=== PATIENT | female | born 1955 | race Caucasian/White ===

== ENCOUNTER → 2017-01-09 | Outpatient (CLI) | payer OTHER ==
[~2017-01-09] MED LIST: CPR500 PO; GLIM2TAB2 PO
--- NOTE | 2017-01-09 16:02 | MAMMOGRAPHY REPORT ---
BILATERAL DIGITAL SCREENING MAMMOGRAM TOMOSYNTHESIS WITH CAD: 01/09/2017 CLINICAL HISTORY: Routine screening. Patient has no complaints. TECHNIQUE: Breast tomosynthesis in addition to standard 2D mammography was performed. Current study was also evaluated with a Computer Aided Detection (CAD) system. COMPARISON: Comparison is made to exams dated: 12/13/2013 ultrasound, 12/09/2013 mammogram, 12/08/2012 m ammogram, 11/26/2011 mammogram - [facility], 02/05/2007, and 11/25/2010 mammogram - [facility]. BREAST COMPOSITION: The tissue of both breasts is heterogeneously dense, which may obscure small ma sses. FINDINGS: No suspicious masses, calcifications, or areas of architectural distortion are noted in e ither breast. There has been no significant interval change compared to prior exams. Scattered bilat eral benign-appearing calcifications are not significantly changed. IMPRESSION: ACR BI-RADS CATEGORY 2: BENIGN There is no mammographic evidence of malignancy. A 1 year screening mammogram is recommended. The p atient will receive written notification of the results. Approximately 10% of breast cancers are not detected with mammography. A negative mammographic repor t should not delay biopsy if a clinically suggestive mass is present. Karla Anne M.D. /:01/09/2017 14:30:03 Electromechanical Inspector: Martha Tenorio [facility] letter sent: Normal 1/2 BI-RADS Code: ACR BI-RADS Category 2: Benign
== END | disposition home or self-care (01) ==
LOC: C.MAMM 10:25
PROVIDERS: ATTEND Internal Medicine
DX: Z12.31 Encounter for screening mammogram for malignant neoplasm of breast (principal)

== ENCOUNTER → 2017-03-26 | Outpatient (CLI) | payer OTHER ==
[2017-03-26 12:40] LABS: CALCIUM 9.7 mg/dl (8.5-10.1)
[2017-03-26 12:42] LABS: ALT/SGPT 20 U/L (12-78); BLOOD UREA NITROGEN 14 mg/dl (7-18); BUN/CREATININE RATIO 14.9 (10-20); CARBON DIOXIDE 28 mmol/L (21-32); CHLORIDE 106 mmol/L (98-107); CHOLESTEROL 193 mg/dl (0-200); CREATININE 0.91 mg/dl (0.60-1.20); GLUCOSE 187 mg/dl (70-99); POTASSIUM 4.6 mmol/L (3.5-5.1); SODIUM 142 mmol/L (136-145); TRIGLYCERIDES 211 mg/dl (0-150); VERY LOW DENSITY LIPOPROT CALC 42 mg/dl
[2017-03-26 12:45] LABS: ALB/GLOB RATIO 1.2 (0.9-2); ALKALINE PHOSPHATASE 73 U/L (45-117); AST/SGOT 13 U/L (15-37); CHOLESTEROL/HDL RATIO 3.9; HDL CHOLESTEROL 50 mg/dl; LDL CHOLESTEROL CALCULATED 101 mg/dl
[2017-03-26 12:54] LABS: ESTIMATED AVERAGE GLUCOSE 192 mg/dl; HA1C FLAG Normal (Normal)
== END | disposition home or self-care (01) ==
LOC: C.LABBFT 08:55
PROVIDERS: ATTEND Nurse Practitioner
DX: E11.49 Type 2 diabetes mellitus with other diabetic neurological complication (principal)

== ENCOUNTER → 2017-04-01 | Outpatient (CLI) | payer OTHER | END | disposition home or self-care (01) | LOC: C.LABSPEC 12:38 | PROVIDERS: ATTEND Nurse Practitioner | DX: R39.9 Unspecified symptoms and signs involving the genitourinary system (principal) ==

== ENCOUNTER → 2017-07-30 | Outpatient (CLI) | payer OTHER ==
[2017-07-30 12:26] LABS: ALT/SGPT 15 U/L (12-78); BLOOD UREA NITROGEN 13 mg/dl (7-18); BUN/CREATININE RATIO 18.4 (10-20); CARBON DIOXIDE 26 mmol/L (21-32); CHLORIDE 101 mmol/L (98-107); CHOLESTEROL 210 mg/dl (0-200); CREATININE 0.72 mg/dl (0.60-1.20); GLUCOSE 293 mg/dl (70-99); POTASSIUM 4.2 mmol/L (3.5-5.1); SODIUM 136 mmol/L (136-145); TRIGLYCERIDES 237 mg/dl (0-150); VERY LOW DENSITY LIPOPROT CALC 47 mg/dl
[2017-07-30 12:29] LABS: ALB/GLOB RATIO 1.2 (0.9-2); ALKALINE PHOSPHATASE 94 U/L (45-117); AST/SGOT 7 U/L (15-37); CHOLESTEROL/HDL RATIO 3.9; HDL CHOLESTEROL 54 mg/dl; LDL CHOLESTEROL CALCULATED 109 mg/dl
[2017-07-30 12:29] LABS: URINE APPEARANCE CLEAR (CLEAR); URINE BILIRUBIN NEG (NEG); URINE COLOR YELLOW; URINE NITRITE NEG (NEG); URINE SPECIFIC GRAVITY 1.029 (1.000-1.030); UROBILINOGEN NEG (NEG)
[2017-07-30 12:30] LABS: ESTIMATED AVERAGE GLUCOSE 249 mg/dl; HA1C FLAG Normal (Normal)
[2017-07-30 12:40] LABS: MANUAL MICROSCOPIC REQUIRED? NO; REVIEW REQ? NO
[2017-07-30 12:51] LABS: RATIO 6.9 mcg/mg (0-30.0)
== END | disposition home or self-care (01) ==
LOC: C.LABBFT 09:05
PROVIDERS: ATTEND Nurse Practitioner
DX: R39.9 Unspecified symptoms and signs involving the genitourinary system (principal); E11.49 Type 2 diabetes mellitus with other diabetic neurological complication

== ENCOUNTER → 2017-12-03 | Outpatient (CLI) | payer OTHER ==
[2017-12-03 12:52] LABS: ALBUMIN 3.9 gm/dl (3.4-5.0); ALT/SGPT 21 U/L (12-78); AST/SGOT 11 U/L (15-37); BLOOD UREA NITROGEN 17 mg/dl (7-18); CALCIUM 9.1 mg/dl (8.5-10.1); CARBON DIOXIDE 28 mmol/L (21-32); CREATININE 0.78 mg/dl (0.60-1.20); GLUCOSE 252 mg/dl (70-99); POTASSIUM 4.5 mmol/L (3.5-5.1); SODIUM 135 mmol/L (136-145)
[2017-12-03 12:54] LABS: ALKALINE PHOSPHATASE 93 U/L (45-117); TOTAL PROTEIN 7.3 gm/dl (6.4-8.2)
== END | disposition home or self-care (01) ==
LOC: C.LABBFT 09:18
PROVIDERS: ATTEND Nurse Practitioner
DX: R39.9 Unspecified symptoms and signs involving the genitourinary system (principal); E11.49 Type 2 diabetes mellitus with other diabetic neurological complication

== ENCOUNTER 2023-05-28 15:16 | Inpatient (IN) ==
--- NOTE | 2023-05-28 15:19 | ED Triage Note ---
Date of Service May 28, 2023 History of Present Illness This patient was briefly evaluated while in triage. An abbreviated physical exam was performed. This patient is a 68-year-old Female who presents to the ED for evaluation of abnormal blood sugars. Her glucose at her PCP today was 422. Hgb A1C was 16.6. BUN/Cr ratio was 28.9. PCP was worried about DKA. She has not been taking her medications for her diabetes. Was recently prescribed insulin, but she still hasn't picked it up yet. Having chest discomfort as well. No nausea or vomiting. Blood sugar was 545 at 1520 in triage. Physical Exam GENERAL: Non-toxic and in no acute distress. HEENT: Pupils equal. No obvious scleral icterus. HEART: Regular rate and rhythm. LUNGS: Clear to auscultation. No accessory muscle use. ABDOMEN: Soft, nontender to palpation. NEURO: Alert and oriented. No obvious neurological deficits on quick neuro exam. The patient was taken directly back to a room due to her elevated BSG. Please see further documentation for additional details. MDM / Impression Impression Impression: DKA (diabetic ketoacidosis)
[2023-05-28] MEDS ORDERED: SODIUM CHLORIDE 0.9% 1000ML 1,000 ML IV ONE (15:31)
[2023-05-28 16:00] LABS: Base Excess VBG -7.9 mEq/L; HCO3 VBG 17 mmol/L; Oxygen Saturation VBG 80.3 %; PCO2 VBG 32 mmHg (38-50); PO2 VBG 48 mmHg; pH VBG 7.33 (7.36-7.41)
[2023-05-28 16:14] LABS: Basophils # (auto) 0.03 K/uL (0-0.2); Basophils % (auto) 0.3 %; Eosinophils # (auto) 0.01 K/uL (0-0.50); Eosinophils % (auto) 0.1 %; Hematocrit (blood only) 36.2 % (37.0-47.0); Hemoglobin 13.2 g/dl (12.0-16.0); Immature Granulocytes # (auto) 0.07 K/uL (0.01-0.20); Immature Granulocytes % (auto) 0.8 %; Lymphocytes # (auto) 2.26 K/uL (1.2-3.4); Lymphocytes % (auto) 24.4 %; Mean Corpuscular Hemoglobin 30.5 pg (25.0-34.0); Mean Corpuscular Hgb Conc 36.5 g/dL (32.0-36.0); Mean Corpuscular Volume 83.6 fL (80.0-100.0); Monocytes # (auto) 0.64 K/uL (0.11-0.59); Monocytes % (auto) 6.9 %; Neutrophils # (auto) 6.24 K/uL (1.40-6.50); Neutrophils % (auto) 67.5 %; Platelet Count 215 K/uL (130-400); RDW Standard Deviation 36.5 fL (36.4-46.3); Red Blood Count 4.33 M/uL (4.20-5.40); White Blood Count 9.25 K/ul (4.8-10.8)
[2023-05-28 16:45] LABS: BUN Creatinine Ratio 34.2 (10-20); Bilirubin Direct 0.3 mg/dl (0-0.2); Bilirubin,Total 1.9 mg/dl (0.2-1.0); Calcium 9.5 mg/dl (8.6-10.3); Creatinine Clr Calc Pharmacy 44.5 ml/min; Est GFR (African American) 54.5 ml/min; Est GFR (Non-African American) 47.1 ml/min; Potassium 4.1 mmol/L (3.5-5.1); Total Protein 6.7 gm/dl (6.0-8.3)
[2023-05-28] MEDS ORDERED: STAT INSULIN DRIP STA (17:32)
[2023-05-28] MEDS ORDERED: GLUCOSE 10 TAB/TUBE PO PRN (17:32)
[2023-05-28] MEDS ORDERED: DEXTROSE 50% 50 ML SYRINGE IV PRN (17:32)
[2023-05-28] MEDS ORDERED: GLUCAGON FOR INJ 1 MG VIAL SQ PRN (17:32)
[2023-05-28] MEDS ORDERED: GLUCOSE 40% GEL 15 GM TUBE PO PRN (17:32)
[2023-05-28] MEDS ORDERED: CARBOHYDRATES FOR HYPOGLYCEMIA PO PRN (17:32)
[2023-05-28] MEDS ORDERED: INSULIN REGULAR 250 UNITS in SODIUM CHLORIDE 0.9% 247.5 ML IV SCH ×2 (17:45→19:15)
--- NOTE | 2023-05-28 18:41 | History & Physical Report ---
Date of Service May 28, 2023 Assessment & Plan (1) Type 2 diabetes mellitus with hyperosmolar hyperglycemic state (HHS): Plan: Patient is a 68-year-old female with past medical history of uncontrolled type 2 diabetes, hyperlipidemia (not on any medication), and anxiety/depression who presented to the hospital with elevated glucose. Patient has not been taking insulin or checking blood glucose levels at home for at least 6 months. HHS vs. DKA Patient initially saw PCP this morning and ordered labs which showed a hemoglobin A1c of 16.6 and a glucose level of 422. When patient was admitted to the hospital glucose levels of 545. Patient has high anion gap of 16 at time of admission. Magnesium, phosphorus, and potassium all within normal limits. VBG showed a pH of 7.33 with a low CO2 of 32. We will continue to monitor magnesium, phosphate, potassium, and VBG in a.m. labs. Patient most likely has HHS rather than DKA though ketones levels were not collected in the ED. Patient did have a high osmolality of 310. We will start on DKA goal range of [id number]. UA ordered the has not been collected at this time. Insulin drip started in the ED which will be continued at time of admission until goal is met. We will change IV fluids to incorporate dextrose once glucose goal is reached. We will start on glucose checks every 1 hour and BMP every 4 hours until at goal. May space out once at goal. (2) Type 2 diabetes mellitus, uncontrolled: Plan: Hemoglobin A1c of 16.6. As above, patient will need close outpatient follow-up at time of discharge given uncontrolled nature of type 2 diabetes. (3) Anxiety and depression: Plan: Patient with increased anxiety and depression over the past couple months. Patient was started on sertraline 50 mg daily and buspirone 5 mg 3 times daily by her PCP today. She has not taken this medication yet. We will hold medication at this time due to not having previously taking it. Should follow-up as outpatient PCP regarding further management. Ativan 0.25 mg as needed added during admission. (4) Hyperlipidemia: Plan: Patient had lipid panel drawn today by PCP. Showed hyperlipidemia. May consider adding statin prior to discharge once stable. (5) Elevated blood pressure reading: Plan: Patient's blood pressures have been fairly well controlled previously though have been elevated since this morning. Patient may have some underlying hypertension though in the setting of HHS/DKA we will hold off on long-term treatment at this time and reassess blood pressure once glucose is stabilized. (6) Hyponatremia: Plan: Patient with a sodium of 125 at time of admission, however with a glucose in the 500s, corrected sodium is between [id number]. We will continue to monitor and reevaluate once patient's glucose levels are stabilized. (7) DKA (diabetic ketoacidosis): Plan Fluids: 1/2 NSS with 20 mEq KCl Nutrition: N.p.o. Code status: Full code DVT ppx: None Dispo: PCU/telemetry Thank you for allowing me to participate in the care of your patient. -Dr. Pola Serna PGY2 History of Present Illness Chief Complaint: Hyperglycemia Primary Care Provider: MARNI Kirk Patient is a 68-year-old female with past medical history of uncontrolled type 2 diabetes, hyperlipidemia (not on any medication), and anxiety and depression. Patient saw her PCP today due to not seeing her PCP in many years and went to discuss anxiety and depression. Patient was noted to be hypertensive in the office and admitted to not taking insulin for some time. Patient was told to go to the ED given elevated glucose level in the office. Patient states that she has not been taking her insulin for at least the last 6 months. She also states that she has not been checking her blood sugars at home during this time. She states that over the past 3 months she has been very stressed and anxious which has caused her discomfort. Patient's daughter bedside states that patient has been having some issues with memories for the last 2 and half weeks. Patient has also been having some blurred vision but no polyuria or polydipsia. Patient also states that she has been having some chest discomfort that comes and goes over the past several weeks. She states that these have been going times of high stress. She does not currently have any chest pain at this time. She denies any shortness of breath, nausea, vomiting, diarrhea, or abdominal pain. Labs done prior to admission today showed a hemoglobin A1c of 16.6, high anion gap of 20 with low bicarb. Glucose of 422. Creatinine of 1.42. Lipid panel showed hyperlipidemia. In the ED: Glucose of 529, normal mag, normal phosphorus, normal potassium of 4.1, decreased sodium at 125. VBG of 7.33 with a low CO2 of 32. Allergies Allergy/AdvReac Type Severity Reaction Status Date / Time Penicillins Allergy Unknown UNKNOWN Verified 05/28/23 08:59 metformin AdvReac Verified 05/28/23 08:59 Home Medications Medication Instructions Recorded Confirmed Type cyanocobalamin (vitamin B-12) 500 500 mcg PO DAILY 10/06/19 05/28/23 History mcg tablet (Vitamin B-12) ascorbic acid (vitamin C) 250 mg 250 mg PO DAILY 12/14/19 05/28/23 History tablet garlic 500 mg capsule 500 mg PO DAILY 12/14/19 05/28/23 History OneTouch Verio test strips (blood #100 ea 05/28/23 05/28/23 Rx sugar diagnostic) buspirone 5 mg tablet 5 mg PO TID #90 tabs 05/28/23 05/28/23 Rx insulin degludec 100 unit/mL (3 10 unit (0.1 mL) subcut DAILY #15 05/28/23 05/28/23 Rx mL) subcutaneous pen (Tresiba mL FlexTouch U-100 insulin) lancets 33 gauge (OneTouch Delica #100 ea 05/28/23 05/28/23 Rx Plus Lancet) pen needle, diabetic 32 gauge x #100 ea 05/28/23 05/28/23 Rx 5/32" (BD Ultra-Fine Snow Pen Needle) sertraline 50 mg tablet 50 mg PO DAILY #30 tabs 05/28/23 05/28/23 Rx Past Med/Surg History Medical History (Updated 05/29/23 @ 01:03 by Pola Serna DO) Diabetes mellitus type 2, uncontrolled, with complications Hyperlipidemia Lichen sclerosus et atrophicus Noncompliance with treatment plan Type 2 diabetes mellitus, uncontrolled Type II diabetes mellitus with neurological manifestations, uncontrolled Surgical History H/O total hysterectomy History of lumbar surgery L4-L5 Family History Father Diabetes Prostate cancer Grandmother Diabetes Aunt Colorectal cancer Brother Stroke Denies family history of Ovarian cancer Myocardial infarction Breast cancer Social History Smoking Status: Never smoker Second Hand Exposure: No; Do You Dip or Chew Tobacco: No; Hx Alcohol Use: No Hx Substance Use: No Preferred Language: Brazilian Communication Ability: Effective Visual Impairment: No Limitations Hearing Ability: Normal Tentering Machine Off Bearer Required: No Beliefs That Will Affect Care: None marital status: Current Living Situation: Spouse Current Living Situation Comment: Lives with , 4 grandchildren and son. 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 How many Children do You have: 3 Other Information That Helps Us Care for You: No Feels Safe at Home: Yes Safety Concerns: Feels Safe At This Time Childhood Exposure to Second-Hand Smoke: No Diet: regular caffeine: Yes (soda) during the past year weight has: remained stable Dental Care, Regularly: No Physical Activity Frequency: Does not Exercise Seatbelt Use: always Sunscreen Use: No Assistive Devices: None Review of Systems Review of Systems: All systems reviewed & are unremarkable except as noted in Subjective Physical Exam Physical Exam: Constitutional: well-appearing, no acute distress HEENT: NCAT, no conjunctival injection CV: regular rhythm, no murmur appreciated, extremities well-perfused, no LE edema Resp: CTABL, no wheezes/rales/rhonchi appreciated, no increased work of breathing GI: soft, nondistended, nontender, BS normoactive MSK: no gross deformities appreciated Skin: warm, dry, no rash appreciated Neuro: alert, oriented, no focal neurologic deficit appreciated Results & Data Results & Data Vital Signs (Past 12 Hours) Vital Signs Pulse Pulse Resp BP Pulse Ox O2 Del Method 05/28/23 15:53 83 05/28/23 15:54 99 Room Air 05/28/23 15:54 108 H 18 179/96 H 99 Room Air 05/28/23 15:18 20 96 Room Air Supervising Physician Co-Signing Physician Notes I personally saw and examined the patient. I verified all chavira points and agree with resident physician Dr Pola Serna, with the following exceptions and/or additions: 68 year old female sent to ER by outpatient PCP due to not taking insulin and abnormal outpatient labs suggestive of DKA. No recent infection symptoms. O/E A&Ox3, HS RRR, no murmurs, Chest CTAB, Abdo SNT A/P Mild DKA - ph 7.33, bicarb 17, anion gap 16. Started on insulin IV drip with DKA protocol. Given T2DM, mild on admission and due to not taking any insulin suspect this easily reversible and not significantly hypovolemic on exam therefore fluid rate started at only 150 ml/hr. Continue to manage as DKA protocol however with potassium now in normal range start with half NSS + 20 meq KCl. Switch to add D5 whenever glucose within range. Switch to SQ insulin whenever anion gap closes. Anxiety - avoid BuSpar in setting of hyponatremia, will use lorazepam as needed while in hospital but suggest not prescribing on discharge. Resident Activity Tracking Resident Involvement: Resident Care Provided Care Provided: Adult Hospital Medicine
[2023-05-28] MEDS ORDERED: ACETAMINOPHEN 325 MG TAB PO PRN (18:54)
[2023-05-28] MEDS ORDERED: PHARMACY GLYCEMIC MGMT CONSULT PRN (19:04)
[2023-05-28] MEDS ORDERED: STAT IV Infusion **Titration per Protocol STA (19:04)
[2023-05-28] MEDS ORDERED: DKA GOAL RANGE 150-250 mg/dl ONE (19:09)
[2023-05-28 20:12] LABS: Magnesium 2.1 mg/dl (1.7-2.4); Phosphorus 4.1 mg/dl (2.5-4.9)
[2023-05-28] MEDS ORDERED: SODIUM CHLOR 0.45% + 20MEQ KCL 20 MEQ/1,000 ML BAG IV SCH (20:30)
[2023-05-28 20:32] LABS: BUN Creatinine Ratio 29.1 (10-20); Creatinine Clr Calc Pharmacy 45.6 ml/min; Est GFR (African American) 56.2 ml/min; Est GFR (Non-African American) 48.5 ml/min; Phosphorus 3.1 mg/dl (2.5-4.9); Potassium 3.8 mmol/L (3.5-5.1)
[2023-05-28] MEDS ORDERED: INSULIN ASPART PER UNIT CHARGE SC SCH ×2 (21:00)
[2023-05-28] MEDS: D5W AND 1/2NSS + 20MEQ KCL 20 MEQ/1,000 ML BAG IV SCH (21:38)
--- NOTE | 2023-05-28 21:39 | Emergency Department Note ---
History of Present Illness General Chief complaint: Hyperglycemia Stated complaint: DIABETIC SHOCK Time Seen by Provider: 05/28/23 15:24 History of Present Illness Provider complaint: High blood sugar Maximum Pain Intensity: 2 Six 8-year-old female presents emergency department for high blood sugars. Patient states she was sent here by her PCP patient reports that she has not been taking her insulin as prescribed and following a diabetic diet because she is "stubborn". Patient denies any chest pain difficulty breathing nausea vomiting diarrhea or abdominal pain. Home Medications Medication Instructions Recorded Confirmed Type cyanocobalamin (vitamin B-12) 500 500 mcg PO DAILY 10/06/19 05/28/23 History mcg tablet (Vitamin B-12) ascorbic acid (vitamin C) 250 mg 250 mg PO DAILY 12/14/19 05/28/23 History tablet garlic 500 mg capsule 500 mg PO DAILY 12/14/19 05/28/23 History OneTouch Verio test strips (blood #100 ea 05/28/23 05/28/23 Rx sugar diagnostic) buspirone 5 mg tablet 5 mg PO TID #90 tabs 05/28/23 05/28/23 Rx insulin degludec 100 unit/mL (3 10 unit (0.1 mL) subcut DAILY #15 05/28/23 05/28/23 Rx mL) subcutaneous pen (Tresiba mL FlexTouch U-100 insulin) lancets 33 gauge (OneTouch Delica #100 ea 05/28/23 05/28/23 Rx Plus Lancet) pen needle, diabetic 32 gauge x #100 ea 05/28/23 05/28/23 Rx 5/32" (BD Ultra-Fine Snow Pen Needle) sertraline 50 mg tablet 50 mg PO DAILY #30 tabs 05/28/23 05/28/23 Rx Allergies Allergy/AdvReac Type Severity Reaction Status Date / Time Penicillins Allergy Unknown UNKNOWN Verified 05/28/23 08:59 metformin AdvReac Verified 05/28/23 08:59 Past Med/Surg History Medical History (Updated 05/28/23 @ 21:39 by Miller Murphy MD) Diabetes mellitus type 2, uncontrolled, with complications Hyperlipidemia Lichen sclerosus et atrophicus Noncompliance with treatment plan Type 2 diabetes mellitus, uncontrolled Type II diabetes mellitus with neurological manifestations, uncontrolled Surgical History H/O total hysterectomy History of lumbar surgery L4-L5 Family History Father Diabetes Prostate cancer Grandmother Diabetes Aunt Colorectal cancer Brother Stroke Denies family history of Ovarian cancer Myocardial infarction Breast cancer Social History Smoking Status: Never smoker Second Hand Exposure: No; Do You Dip or Chew Tobacco: No; Hx Alcohol Use: No Hx Substance Use: No Preferred Language: Tamazight Communication Ability: Effective Visual Impairment: No Limitations Hearing Ability: Normal E Commerce Specialist Required: No Beliefs That Will Affect Care: None marital status: Current Living Situation: Spouse and Family Current Living Situation Comment: Lives with , 4 grandchildren and son. 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 How many Children do You have: 3 Feels Safe at Home: Yes Childhood Exposure to Second-Hand Smoke: No Diet: regular caffeine: Yes (soda) during the past year weight has: remained stable Dental Care, Regularly: No Physical Activity Frequency: Does not Exercise Seatbelt Use: always Sunscreen Use: No Assistive Devices: None Physical Exam Vital Signs Vital Signs - 24 hr 05/28/23 15:18 05/28/23 15:54 05/28/23 15:54 Pulse Rate Pulse Rate [Apical] 108 H Pulse Rate from SpO2 Sensor Pulse Rhythm [Apical] Regular Pulse Strength [Apical] Respiratory Rate 20 18 Respiratory Effort / Characteristics Non-Labored Spontaneous Non-Labored Spontaneous Respiratory Depth Normal Normal Respiratory Pattern Regular Regular Blood Pressure Blood Pressure [Right Arm] 179/96 H Blood Pressure Mean Blood Pressure Mean [Right Arm] 123 Blood Pressure Position Sitting Blood Pressure Position [Right Arm] Lying Pulse Oximetry 96 99 99 Oxygen Delivery Method Room Air Room Air Room Air Sepsis Recent Fever Within 48 Hours No Sepsis New/Unexplained Change in Mental Status No Sepsis Action Taken by Nursing No Action Required 05/28/23 15:53 05/28/23 18:54 05/28/23 18:54 Pulse Rate 83 Pulse Rate [Apical] 86 Pulse Rate from SpO2 Sensor Pulse Rhythm [Apical] Regular Pulse Strength [Apical] Respiratory Rate 18 Respiratory Effort / Characteristics Non-Labored Spontaneous Respiratory Depth Normal Respiratory Pattern Regular Blood Pressure Blood Pressure [Right Arm] 166/89 H Blood Pressure Mean Blood Pressure Mean [Right Arm] 114 Blood Pressure Position Blood Pressure Position [Right Arm] Lying Pulse Oximetry 98 98 Oxygen Delivery Method Room Air Room Air Sepsis Recent Fever Within 48 Hours Sepsis New/Unexplained Change in Mental Status Sepsis Action Taken by Nursing 05/28/23 20:12 05/28/23 15:53 05/28/23 16:00 Pulse Rate 83 92 H Pulse Rate [Apical] Pulse Rate from SpO2 Sensor 82 92 H Pulse Rhythm [Apical] Regular Pulse Strength [Apical] Respiratory Rate 15 21 Respiratory Effort / Characteristics Non-Labored Respiratory Depth Normal Respiratory Pattern Regular Blood Pressure Blood Pressure [Right Arm] Blood Pressure Mean Blood Pressure Mean [Right Arm] Blood Pressure Position Blood Pressure Position [Right Arm] Pulse Oximetry 98 98 Oxygen Delivery Method Room Air Sepsis Recent Fever Within 48 Hours Sepsis New/Unexplained Change in Mental Status Sepsis Action Taken by Nursing 05/28/23 16:30 05/28/23 17:00 05/28/23 18:20 Pulse Rate 100 H 97 H Pulse Rate [Apical] Pulse Rate from SpO2 Sensor 101 H 97 H 94 H Pulse Rhythm [Apical] Pulse Strength [Apical] Respiratory Rate 15 20 Respiratory Effort / Characteristics Respiratory Depth Respiratory Pattern Blood Pressure Blood Pressure [Right Arm] Blood Pressure Mean Blood Pressure Mean [Right Arm] Blood Pressure Position Blood Pressure Position [Right Arm] Pulse Oximetry 97 94 97 Oxygen Delivery Method Sepsis Recent Fever Within 48 Hours Sepsis New/Unexplained Change in Mental Status Sepsis Action Taken by Nursing 05/28/23 18:36 05/28/23 19:00 05/28/23 19:30 Pulse Rate 93 H 84 90 Pulse Rate [Apical] Pulse Rate from SpO2 Sensor 85 Pulse Rhythm [Apical] Pulse Strength [Apical] Respiratory Rate 15 12 18 Respiratory Effort / Characteristics Respiratory Depth Respiratory Pattern Blood Pressure 166/89 H Blood Pressure [Right Arm] Blood Pressure Mean 114 Blood Pressure Mean [Right Arm] Blood Pressure Position Blood Pressure Position [Right Arm] Pulse Oximetry 98 Oxygen Delivery Method Sepsis Recent Fever Within 48 Hours Sepsis New/Unexplained Change in Mental Status Sepsis Action Taken by Nursing 05/28/23 20:00 05/28/23 20:16 05/28/23 20:00 Pulse Rate 86 101 H Pulse Rate [Apical] Pulse Rate from SpO2 Sensor Pulse Rhythm [Apical] Regular Pulse Strength [Apical] Normal Respiratory Rate 10 L Respiratory Effort / Characteristics Non-Labored Respiratory Depth Normal Respiratory Pattern Regular Blood Pressure Blood Pressure [Right Arm] Blood Pressure Mean Blood Pressure Mean [Right Arm] Blood Pressure Position Blood Pressure Position [Right Arm] Pulse Oximetry Oxygen Delivery Method Room Air Sepsis Recent Fever Within 48 Hours Sepsis New/Unexplained Change in Mental Status Sepsis Action Taken by Nursing Physical Exam GENERAL: oriented to person, place, and time. appears well-developed and well- nourished. HENT: Exam performed. - Head: Normocephalic and atraumatic. EYES: Conjunctivae and EOM are normal. Right eye exhibits no discharge. Left eye exhibits no discharge. No scleral icterus. NECK: Normal range of motion. Neck supple. No JVD present. CV: Normal rate, regular rhythm, normal heart sounds and intact distal pulses. There is no peripheral edema. Palpable radial pulses bue. PULM/CHEST: Effort normal and breath sounds normal. No respiratory distress. No stridor. no wheezes. no rales. ABD: The abdomen is soft. There is no tenderness. NEURO: Motor and sensation grossly intact. SKIN: Skin is warm and dry. He is not diaphoretic. PSYCH: normal mood and affect. Behavior is normal. Judgment and thought content normal. Course Course 1524: The patient was evaluated in room A12. A complete history and physical exam was performed Cardiac monitoring: An order was placed for continuous cardiac monitoring. The monitor shows a rate of 90 with sinus rhythm interpreted by vt 1730: Vital signs stable. Labs show the patient is in DKA. Patient be started on insulin drip. Patient will be admitted to the [facility]ist team. Administered Medications Acetaminophen (Acetaminophen 325 Mg Tab) 650 mg PO Q4H PRN PRN Reason: Pain or Fever Stop: 06/27/23 18:53 Last Admin: 05/28/23 19:52 Dose: 650 mg Documented By: KAELA Insulin Human Regular 250 (units/ Sodium Chloride) 250 mls @ 0 mls/hr IV .Q0M [facility]; Protocol Stop: 06/27/23 17:44 Last Titration: 05/28/23 21:02 Dose: 0 units/hr, 0 mls/hr Documented By: KAELA Co-signed By: ANTONIO Titration: 05/28/23 19:57 Dose: 6 units/hr, 6 mls/hr Documented By: KAELA Co-signed By: JACOBY Admin: 05/28/23 18:41 Dose: 6 units/hr, 6 mls/hr Documented By: MIMA Co-signed By: JLT Discontinued Medications Sodium Chloride (Nss 1000ml) 1,000 mls @ 999 mls/hr IV .Q1H1M ONE Stop: 05/28/23 16:31 Last Infusion: 05/28/23 17:29 Dose: 0 mls/hr Documented By: Admin: 05/28/23 15:53 Dose: 999 mls/hr Documented By: MIMA Potassium Chloride/Sodium Chloride (1/2 Nss + 20meq Kcl 1000ml) 20 meq in 1,000 mls @ 150 mls/hr IV .Q6H40M [facility]; Protocol Stop: 06/27/23 20:29 Last Admin: 05/28/23 20:57 Dose: 150 mls/hr Documented By: KAELA Critical Care Time Critical Care Time: Yes Total Critical Care Time: 38 I have personally spent greater than 38 minutes of critical care time in the direct management of this patient. This includes bedside care, interpretation of diagnostic studies, and testing, discussion with consultants, patient, and family members, and other required patient management activities. This 38 minutes is in excess of all separately billable procedures. Medical Decision Making Laboratory Data Attestation: I reviewed the patient's lab results. 05/28/23 15:38 05/28/23 19:32 Lab Results 05/28/23 05/28/23 05/28/23 Range/Units 15:20 15:38 15:38 WBC 9.25 (4.8-10.8) K/ul RBC 4.33 (4.20-5.40) M/uL Hgb 13.2 (12.0-16.0) g/dl Hct 36.2 L (37.0-47.0) % MCV 83.6 (80.0-100.0) fL MCH 30.5 (25.0-34.0) pg MCHC 36.5 H (32.0-36.0) g/dL RDW Std Deviation 36.5 (36.4-46.3) fL RDW Coeff of Abel 12.0 (11.5-14.5) % Plt Count 215 (130-400) K/uL MPV 10.0 (9.4-12.4) fL Immature Gran % (Auto) 0.8 % Neut % (Auto) 67.5 % Lymph % (Auto) 24.4 % Knott % (Auto) 6.9 % Eos % (Auto) 0.1 % Baso % (Auto) 0.3 % Neut # (Auto) 6.24 (1.40-6.50) K/uL Lymph # (Auto) 2.26 (1.2-3.4) K/uL Knott # (Auto) 0.64 H (0.11-0.59) K/uL Eos # (Auto) 0.01 (0-0.50) K/uL Baso # (Auto) 0.03 (0-0.2) K/uL Immature Gran # (Auto) 0.07 (0.01-0.20) K/uL VBG pH (7.36-7.41) VBG pCO2 (38-50) mmHg VBG pO2 mmHg VBG HCO3 mmol/L VBG O2 Saturation % VBG Base Excess mEq/L Sodium (136-145) mmol/L Potassium (3.5-5.1) mmol/L Chloride (98-107) mmol/L Carbon Dioxide (21-32) mmol/L Anion Gap (3-11) BUN (6-23) mg/dl Creatinine (0.6-1.2) mg/dl Est Cr Clr Drug Dosing ml/min Est GFR ( Amer) ml/min Est GFR (Non-Af Amer) ml/min BUN/Creatinine Ratio (10-20) Glucose (70-99(Fasting)) mg/dl POC Glucose 545 H* (70-99) mg/dl Osmolality 310 H (280-300) mOsm/kg Calcium (8.6-10.3) mg/dl Phosphorus (2.5-4.9) mg/dl Magnesium (1.7-2.4) mg/dl Total Bilirubin (0.2-1.0) mg/dl Direct Bilirubin (0-0.2) mg/dl AST (13-39) U/L ALT (7-52) U/L Alkaline Phosphatase (34-104) U/L Total Protein (6.0-8.3) gm/dl Albumin (3.4-5.0) gm/dl Lipase (11-82) U/L 05/28/23 05/28/23 05/28/23 Range/Units 15:38 15:38 17:46 WBC (4.8-10.8) K/ul RBC (4.20-5.40) M/uL Hgb (12.0-16.0) g/dl Hct (37.0-47.0) % MCV (80.0-100.0) fL MCH (25.0-34.0) pg MCHC (32.0-36.0) g/dL RDW Std Deviation (36.4-46.3) fL RDW Coeff of Abel (11.5-14.5) % Plt Count (130-400) K/uL MPV (9.4-12.4) fL Immature Gran % (Auto) % Neut % (Auto) % Lymph % (Auto) % Knott % (Auto) % Eos % (Auto) % Baso % (Auto) % Neut # (Auto) (1.40-6.50) K/uL Lymph # (Auto) (1.2-3.4) K/uL Knott # (Auto) (0.11-0.59) K/uL Eos # (Auto) (0-0.50) K/uL Baso # (Auto) (0-0.2) K/uL Immature Gran # (Auto) (0.01-0.20) K/uL VBG pH 7.33 L (7.36-7.41) VBG pCO2 32 L (38-50) mmHg VBG pO2 48 mmHg VBG HCO3 17 mmol/L VBG O2 Saturation 80.3 % VBG Base Excess -7.9 mEq/L Sodium 125 L (136-145) mmol/L Potassium 4.1 (3.5-5.1) mmol/L Chloride 92 L (98-107) mmol/L Carbon Dioxide 17 L (21-32) mmol/L Anion Gap 16 H (3-11) BUN 41 H (6-23) mg/dl Creatinine 1.20 (0.6-1.2) mg/dl Est Cr Clr Drug Dosing 44.5 ml/min Est GFR ( Amer) 54.5 ml/min Est GFR (Non-Af Amer) 47.1 ml/min BUN/Creatinine Ratio 34.2 H (10-20) Glucose 529 H* (70-99(Fasting)) mg/dl POC Glucose 423 H* (70-99) mg/dl Osmolality (280-300) mOsm/kg Calcium 9.5 (8.6-10.3) mg/dl Phosphorus 4.1 (2.5-4.9) mg/dl Magnesium 2.1 (1.7-2.4) mg/dl Total Bilirubin 1.9 H (0.2-1.0) mg/dl Direct Bilirubin 0.3 H (0-0.2) mg/dl AST 12 L (13-39) U/L ALT 14 (7-52) U/L Alkaline Phosphatase 75 (34-104) U/L Total Protein 6.7 (6.0-8.3) gm/dl Albumin 4.0 (3.4-5.0) gm/dl Lipase 117 H (11-82) U/L 05/28/23 05/28/23 05/28/23 Range/Units 18:39 19:32 19:32 WBC (4.8-10.8) K/ul RBC (4.20-5.40) M/uL Hgb (12.0-16.0) g/dl Hct (37.0-47.0) % MCV (80.0-100.0) fL MCH (25.0-34.0) pg MCHC (32.0-36.0) g/dL RDW Std Deviation (36.4-46.3) fL RDW Coeff of Abel (11.5-14.5) % Plt Count (130-400) K/uL MPV (9.4-12.4) fL Immature Gran % (Auto) % Neut % (Auto) % Lymph % (Auto) % Knott % (Auto) % Eos % (Auto) % Baso % (Auto) % Neut # (Auto) (1.40-6.50) K/uL Lymph # (Auto) (1.2-3.4) K/uL Knott # (Auto) (0.11-0.59) K/uL Eos # (Auto) (0-0.50) K/uL Baso # (Auto) (0-0.2) K/uL Immature Gran # (Auto) (0.01-0.20) K/uL VBG pH 7.33 L (7.36-7.41) VBG pCO2 (38-50) mmHg VBG pO2 mmHg VBG HCO3 mmol/L VBG O2 Saturation % VBG Base Excess mEq/L Sodium 131 L (136-145) mmol/L Potassium 3.8 (3.5-5.1) mmol/L Chloride 98 (98-107) mmol/L Carbon Dioxide 19 L (21-32) mmol/L Anion Gap 14 H (3-11) BUN 34 H (6-23) mg/dl Creatinine 1.17 (0.6-1.2) mg/dl Est Cr Clr Drug Dosing 45.6 ml/min Est GFR ( Amer) 56.2 ml/min Est GFR (Non-Af Amer) 48.5 ml/min BUN/Creatinine Ratio 29.1 H (10-20) Glucose 331 H* (70-99(Fasting)) mg/dl POC Glucose 375 H* (70-99) mg/dl Osmolality (280-300) mOsm/kg Calcium 9.0 (8.6-10.3) mg/dl Phosphorus 3.1 D (2.5-4.9) mg/dl Magnesium 2.0 (1.7-2.4) mg/dl Total Bilirubin (0.2-1.0) mg/dl Direct Bilirubin (0-0.2) mg/dl AST (13-39) U/L ALT (7-52) U/L Alkaline Phosphatase (34-104) U/L Total Protein (6.0-8.3) gm/dl Albumin (3.4-5.0) gm/dl Lipase (11-82) U/L 05/28/23 05/28/23 Range/Units 19:54 21:00 WBC (4.8-10.8) K/ul RBC (4.20-5.40) M/uL Hgb (12.0-16.0) g/dl Hct (37.0-47.0) % MCV (80.0-100.0) fL MCH (25.0-34.0) pg MCHC (32.0-36.0) g/dL RDW Std Deviation (36.4-46.3) fL RDW Coeff of Abel (11.5-14.5) % Plt Count (130-400) K/uL MPV (9.4-12.4) fL Immature Gran % (Auto) % Neut % (Auto) % Lymph % (Auto) % Knott % (Auto) % Eos % (Auto) % Baso % (Auto) % Neut # (Auto) (1.40-6.50) K/uL Lymph # (Auto) (1.2-3.4) K/uL Knott # (Auto) (0.11-0.59) K/uL Eos # (Auto) (0-0.50) K/uL Baso # (Auto) (0-0.2) K/uL Immature Gran # (Auto) (0.01-0.20) K/uL VBG pH (7.36-7.41) VBG pCO2 (38-50) mmHg VBG pO2 mmHg VBG HCO3 mmol/L VBG O2 Saturation % VBG Base Excess mEq/L Sodium (136-145) mmol/L Potassium (3.5-5.1) mmol/L Chloride (98-107) mmol/L Carbon Dioxide (21-32) mmol/L Anion Gap (3-11) BUN (6-23) mg/dl Creatinine (0.6-1.2) mg/dl Est Cr Clr Drug Dosing ml/min Est GFR ( Amer) ml/min Est GFR (Non-Af Amer) ml/min BUN/Creatinine Ratio (10-20) Glucose (70-99(Fasting)) mg/dl POC Glucose 310 H* 224 H (70-99) mg/dl Osmolality (280-300) mOsm/kg Calcium (8.6-10.3) mg/dl Phosphorus (2.5-4.9) mg/dl Magnesium (1.7-2.4) mg/dl Total Bilirubin (0.2-1.0) mg/dl Direct Bilirubin (0-0.2) mg/dl AST (13-39) U/L ALT (7-52) U/L Alkaline Phosphatase (34-104) U/L Total Protein (6.0-8.3) gm/dl Albumin (3.4-5.0) gm/dl Lipase (11-82) U/L ECG Data Attestation: I personally reviewed and interpreted this ECG as follows: Rate (beats per minute): 94 Rhythm: + normal sinus ECG Intervals/blocks: + Right Bundle branch block ECG ST segments: + Normal ST segments Additional Comments: [place] 122 QRS 124 QTc 517 [facility] Narrative 1524: The patient was evaluated in room A12. A complete history and physical exam was performed Cardiac monitoring: An order was placed for continuous cardiac monitoring. The monitor shows a rate of 90 with sinus rhythm interpreted by me 1730: Vital signs stable. Labs show the patient is in DKA. Patient be started on insulin drip. Patient will be admitted to the [facility] hospitalist team. Impression & Plan DKA (diabetic ketoacidosis) Discharge Plan Visit Data Chief Complaint: Hyperglycemia Stated Complaint: DIABETIC SHOCK ED Provider: Miller Murphy Discharge Problem: DKA (diabetic ketoacidosis) Patient Disposition: Admitted As Inpatient Forms Stand Alone Forms: My [facility] Prescriptions Prescriptions: No Action cyanocobalamin (vitamin B-12) [Vitamin B-12] 500 mcg tablet 500 mcg PO DAILY sertraline 50 mg tablet 50 mg PO DAILY Qty: 30 2RF buspirone 5 mg tablet 5 mg PO TID Qty: 90 2RF (DME) lancets [OneTouch Delica Plus Lancet] 33 gauge misc See Rx Instructions .Route Qty: 100 11RF Rx Instructions: test blood sugar 3 x daily (DME) OneTouch Verio test strips Strip See Rx Instructions .Route Qty: 100 11RF Rx Instructions: test blood sugar 3 x daily (DME) pen needle, diabetic [BD Ultra-Fine Snow Pen Needle] 32 gauge x 5/32" needle See Rx Instructions .Route Qty: 100 3RF Rx Instructions: use once daily insulin degludec [Tresiba FlexTouch U-100] 100 unit/mL (3 mL) insulin pen 10 unit subcut DAILY Qty: 15 5RF garlic 500 mg capsule 500 mg PO DAILY ascorbic acid (vitamin C) 250 mg tablet 250 mg PO DAILY Referrals Referrals: Tory Reynolds CRNP [Primary Care Provider] -
[2023-05-28] MEDS: PENDING D5 1/2NS+20mEq KCL IVF SCH ×2 (21:49→23:29)
[2023-05-28 23:15] LABS: BUN Creatinine Ratio 31.4 (10-20); Calcium 8.9 mg/dl (8.6-10.3); Creatinine Clr Calc Pharmacy 52.3 ml/min; Est GFR (African American) 66.4 ml/min; Est GFR (Non-African American) 57.3 ml/min; Potassium 3.5 mmol/L (3.5-5.1)
[2023-05-29] MEDS: LORazepam 0.5 MG TAB PO PRN ×2 (00:30→20:10)
[2023-05-29 03:51] LABS: Appearance Urine Clear (Clear); Bacteria Urine Automated Negative (Negative); Bilirubin Urine Negative (Negative); Blood Urine Trace (Negative); Cast Urine Automated 0 /lpf (0-5); Color Urine Yellow; Epithelial Cell Urine Auto >30 /lpf (0-5); Glucose Urine UA 3+ (Negative); Ketones Urine 2+ (Negative); Leukocyte Esterase Urine Negative (Negative); Nitrite Urine Negative (Negative); Protein Urine 2+ (Negative); RBC Urine Automated 0-4 /hpf (0-4); Specific Gravity Urine 1.023 (1.000-1.030); Urobilinogen Urine Negative (Negative); pH Urine 5.5 (4.5-7.5)
[2023-05-29 04:21] LABS: BUN Creatinine Ratio 27.7 (10-20); Calcium 8.7 mg/dl (8.6-10.3); Creatinine Clr Calc Pharmacy 56.8 ml/min; Est GFR (African American) 73.3 ml/min; Est GFR (Non-African American) 63.2 ml/min; Potassium 3.3 mmol/L (3.5-5.1)
[2023-05-29] MEDS: D5W AND 1/2NSS + 20MEQ KCL 20 MEQ/1,000 ML BAG IV SCH (04:23)
[2023-05-29] MEDS ORDERED: INSULIN ASPART PER UNIT CHARGE SC SCH (07:30)
--- NOTE | 2023-05-29 07:31 | Billing Data ---
Date of Service May 28, 2023 Coding Level of Care Code 10455 INT INP/OBS CARE
--- NOTE | 2023-05-29 07:52 | Electrocardiogram Report ---
Test Reason : Blood Pressure : / mmHG Vent. Rate : 090 BPM Atrial Rate : 090 BPM P-R Int : 126 ms QRS Dur : 130 ms QT Int : 406 ms P-R-T Axes : 012 -17 -02 degrees QTc Int : 496 ms Sinus rhythm with Premature atrial complexes Right bundle branch block Poor R wave progression, consider anterior SC vs. lead placement vs. LVH Abnormal ECG When compared with ECG of 28-MAY-2023 16:01, Premature atrial complexes are now Present Confirmed by Demetri Lion ([id number]) on 05/29/2023 7:52:42 AM Referred By: REFERRED SELF Confirmed By:Demetri Lion
[2023-05-29] MEDS: CYANOCOBALAMIN (B-12) 500 MCG TABLET PO SCH (08:16)
[2023-05-29] MEDS: ASCORBIC ACID 500 MG TAB PO SCH (08:17)
[2023-05-29 08:59] LABS: BUN Creatinine Ratio 24.4 (10-20); Calcium 9.1 mg/dl (8.6-10.3); Creatinine Clr Calc Pharmacy 62.4 ml/min; Est GFR (African American) 81.6 ml/min; Est GFR (Non-African American) 70.4 ml/min; Potassium 3.6 mmol/L (3.5-5.1)
[2023-05-29] MEDS ORDERED: POTASSIUM CHLORIDE CRTAB 20 MEQ TABCR PO ONE (09:00)
[2023-05-29] MEDS ORDERED: CARBOHYDRATES FOR HYPOGLYCEMIA PO PRN (09:06)
[2023-05-29] MEDS ORDERED: GLUCOSE 10 TAB/TUBE PO PRN (09:06)
[2023-05-29] MEDS ORDERED: GLUCAGON FOR INJ 1 MG VIAL SQ PRN (09:06)
[2023-05-29] MEDS ORDERED: DEXTROSE 50% 50 ML SYRINGE IV PRN (09:06)
[2023-05-29] MEDS ORDERED: GLUCOSE 40% GEL 15 GM TUBE PO PRN (09:06)
[2023-05-29] MEDS: INSULIN HUMAN NPH SC SCH ×2 (09:39→20:27)
--- NOTE | 2023-05-29 10:28 | Electrocardiogram Report ---
Test Reason : Blood Pressure : / mmHG Vent. Rate : 094 BPM Atrial Rate : 094 BPM P-R Int : 122 ms QRS Dur : 124 ms QT Int : 414 ms P-R-T Axes : 064 017 022 degrees QTc Int : 517 ms Normal sinus rhythm Right bundle branch block Abnormal ECG When compared with ECG of 19-SEP-2016 20:53, No significant change Confirmed by Demetri Lion ([id number]) on 05/29/2023 10:27:32 AM Referred By: Confirmed By:Demetri Lion
[2023-05-29] MEDS: INSULIN ASPART PER UNIT CHARGE SC SCH ×3 (11:54→20:27)
--- NOTE | 2023-05-29 14:40 | Hospitalist Progress Note ---
Date of Service May 29, 2023 Assessment & Plan (1) Type 2 diabetes mellitus with hyperosmolar hyperglycemic state (HHS): Plan: Anion gap is now closed. Insulin drip has been discontinued. She is now on NPH insulin twice daily. She will resume her insulin degludec at discharge which she states she has not been taking for several months. ADA diet. Sliding scale coverage (2) Anxiety and depression: Plan: Stable. Continue current medical management (3) Hyperlipidemia: Plan: Triglycerides are elevated due to uncontrolled diabetes. This will need outpatient follow-up. She refuses to take a statin at this time (4) Elevated blood pressure reading: Plan: Elevated on admission but now stable. Continue current medical management. (5) Hyponatremia: Plan: Pseudohyponatremia present on admission due to hyperglycemia. Now resolved. Plan Hopeful discharge to home tomorrow, May 30 Admission and Anticipated Discharge Date Admission Date: May 28, 2023 Subjective Alert and oriented. She is now off the insulin drip and has been started on insulin NPH twice daily. She has insulin degludec at home but has not been taking it for months. Anion gap has closed. Hopefully she can go home tomorrow, May 30 Review of Systems Review of Systems: Constitutional-no fever or chills ENT-no blurred vision, no double vision, no epistaxis, no sore throat Respiratory-no cough, no wheezing, no shortness of breath Cardiac-no palpitations, no chest pain, no syncope GI-no nausea, vomiting, diarrhea, melena, hematochezia -no urinary retention, no urinary incontinence, no dysuria, no hematuria Musculoskeletal-no joint pain, no muscle tenderness Skin-no bruising, no rashes, no pruritus Neuro-no isolated weakness, no paresthesia, no weakness Psych-no depression, no anxiety Physical Exam Physical Exam: General-alert and oriented x3, no fevers, no chills HEENT-head atraumatic and normocephalic, pupils equal and reactive to light, extraocular muscles intact Neck-no lymphadenopathy or thyromegaly, trachea midline Chest-clear to auscultation percussion. No rales wheezing or rhonchi Cardiac-regular rate and rhythm, normal S1 and S2 Abdomen-normal bowel sounds, nontender, no hepatosplenomegaly Extremities-no cyanosis, clubbing, or edema Neuro-cranial nerves II through XII intact, motor and sensory function within normal limits, strength symmetrical , no focal deficits Psych-normal affect, normal mood Results & Data Results & Data Vital Signs (Past 12 Hours) Vital Signs Temp Pulse Resp BP Pulse Ox O2 Del Method 05/29/23 11:14 36.7 C 86 20 143/88 H 97 Room Air 05/29/23 07:42 36.6 C 88 20 158/95 H 96 Room Air 05/29/23 05:38 36.6 C 79 16 167/99 H 97 Room Air Laboratory Results 05/28/23 15:38 05/29/23 07:27 PG Care Time/CCT Total # of Minutes Spent Total Time Spent with Patient: Total time spent is greater than 50% in coordination of care (as documented) at patient's floor/unit and/or counseling patient: Coding Level of Care Code 58673 SUB INP/OBS CARE 3/50MIN Diagnoses Type 2 diabetes mellitus with hyperosmolar hyperglycemic state (HHS) E11.00 Anxiety and depression F41.9; F32.A Hyperlipidemia E78.5 Elevated blood pressure reading R03.0 Hyponatremia E87.1
[2023-05-30] MEDS: INSULIN ASPART PER UNIT CHARGE SC SCH ×2 (07:57→12:09)
[2023-05-30] MEDS: ASCORBIC ACID 500 MG TAB PO SCH (07:58)
[2023-05-30] MEDS: CYANOCOBALAMIN (B-12) 500 MCG TABLET PO SCH (07:59)
[2023-05-30] MEDS: INSULIN HUMAN NPH SC SCH (08:01)
[2023-05-30] MEDS: LORazepam 0.5 MG TAB PO PRN (08:10)
--- NOTE | 2023-05-30 10:51 | Electrocardiogram Report ---
Test Reason : Blood Pressure : / mmHG Vent. Rate : 076 BPM Atrial Rate : 076 BPM P-R Int : 114 ms QRS Dur : 132 ms QT Int : 424 ms P-R-T Axes : 037 045 038 degrees QTc Int : 477 ms Normal sinus rhythm Right bundle branch block Abnormal ECG When compared with ECG of 29-MAY-2023 05:12, Premature atrial complexes are no longer Present T wave inversion no longer evident in Inferior leads Confirmed by Magdaleno Segura ([id number]) on 05/30/2023 10:50:46 AM Referred By: REFERRED SELF Confirmed By:Magdaleno Segura
[2023-05-30 11:43] LABS: Basophils # (auto) 0.05 K/uL (0-0.2); Basophils % (auto) 0.7 %; Eosinophils # (auto) 0.09 K/uL (0-0.50); Eosinophils % (auto) 1.2 %; Hemoglobin 13.2 g/dl (12.0-16.0); Immature Granulocytes # (auto) 0.04 K/uL (0.01-0.20); Immature Granulocytes % (auto) 0.5 %; Lymphocytes # (auto) 1.98 K/uL (1.2-3.4); Lymphocytes % (auto) 26.4 %; Mean Corpuscular Hemoglobin 30.2 pg (25.0-34.0); Mean Corpuscular Hgb Conc 36.7 g/dL (32.0-36.0); Mean Corpuscular Volume 82.4 fL (80.0-100.0); Mean Platelet Volume 9.4 fL (9.4-12.4); Monocytes # (auto) 0.78 K/uL (0.11-0.59); Monocytes % (auto) 10.4 %; Neutrophils # (auto) 4.57 K/uL (1.40-6.50); Neutrophils % (auto) 60.8 %; Platelet Count 174 K/uL (130-400); RDW Coefficient of Variation 11.8 % (11.5-14.5); RDW Standard Deviation 35.5 fL (36.4-46.3); Red Blood Count 4.37 M/uL (4.20-5.40); White Blood Count 7.51 K/ul (4.8-10.8)
[2023-05-30 11:59] LABS: BUN Creatinine Ratio 19.5 (10-20); Calcium 8.8 mg/dl (8.6-10.3); Creatinine Clr Calc Pharmacy 68.4 ml/min; Est GFR (African American) 93.3 ml/min; Est GFR (Non-African American) 80.5 ml/min; Potassium 3.7 mmol/L (3.5-5.1)
--- NOTE | 2023-05-30 12:00 | Discharge Summary ---
Date of Service May 30, 2023 Admission HPI Per Admitting Provider Patient is a 68-year-old female with past medical history of uncontrolled type 2 diabetes, hyperlipidemia (not on any medication), and anxiety and depression. Patient saw her PCP today due to not seeing her PCP in many years and went to discuss anxiety and depression. Patient was noted to be hypertensive in the office and admitted to not taking insulin for some time. Patient was told to go to the ED given elevated glucose level in the office. Patient states that she has not been taking her insulin for at least the last 6 months. She also states that she has not been checking her blood sugars at home during this time. She states that over the past 3 months she has been very stressed and anxious which has caused her discomfort. Patient's daughter bedside states that patient has been having some issues with memories for the last 2 and half weeks. Patient has also been having some blurred vision but no polyuria or polydipsia. Patient also states that she has been having some chest discomfort that comes and goes over the past several weeks. She states that these have been going times of high stress. She does not currently have any chest pain at this time. She denies any shortness of breath, nausea, vomiting, diarrhea, or abdominal pain. Labs done prior to admission today showed a hemoglobin A1c of 16.6, high anion gap of 20 with low bicarb. Glucose of 422. Creatinine of 1.42. Lipid panel showed hyperlipidemia. In the ED: Glucose of 529, normal mag, normal phosphorus, normal potassium of 4.1, decreased sodium at 125. VBG of 7.33 with a low CO2 of 32. Principal Diagnosis Uncontrolled diabetes with hyperglycemia and hyperosmolar state, pseudohyponatremia Discharge Exam General-alert and oriented x3, no fevers, no chills HEENT-head atraumatic and normocephalic, pupils equal and reactive to light, extraocular muscles intact Neck-no lymphadenopathy or thyromegaly, trachea midline Chest-clear to auscultation percussion. No rales wheezing or rhonchi Cardiac-regular rate and rhythm, normal S1 and S2 Abdomen-normal bowel sounds, nontender, no hepatosplenomegaly Extremities-no cyanosis, clubbing, or edema Neuro-cranial nerves II through XII intact, motor and sensory function within normal limits, strength symmetrical , no focal deficits Psych-normal affect, normal mood Discharge Data Allergies Allergy/AdvReac Type Severity Reaction Status Date / Time Penicillins Allergy Unknown UNKNOWN Verified 05/28/23 08:59 metformin AdvReac Verified 05/28/23 08:59 Consultations 05/28/23 17:32 ED Decision to Admit Stat 05/29/23 06:33 Consult Behavioral Health Liaison Routine Diabetes Follow up Diabetes Follow-up Needed for HgbA1c >9% Hospital Course (1) Type 2 diabetes mellitus with hyperosmolar hyperglycemic state (HHS): She has been switched from the insulin drip that was started on admission to NPH insulin twice daily. She will resume her insulin degludec at discharge which she states she has not been taking for several months. ADA diet. Sliding scale coverage (2) Anxiety and depression: Stable. Continue current medical management (3) Hyperlipidemia: Triglycerides are elevated due to uncontrolled diabetes. This will need outpatient follow-up. She refuses to take a statin at this time (4) Elevated blood pressure reading: Elevated on admission but now stable. Continue current medical management. (5) Hyponatremia: Pseudohyponatremia present on admission due to hyperglycemia. Now resolved. Plan Home today, May 30 Total Time Total Time Spent Total Time Spent (In Minutes): 45 Discharge Plan Discharge Items Patient Disposition: Home - Self-Care Reason For Visit: DKA/HHS Discharge Diagnosis: Uncontrolled type 2 diabetes with hyperosmotic state, pseudohyponatremia Activity: Resume your previous activity Non-emergency contact: Primary Care Provider Call non-emergency contact if: you have any medication questions Follow-up/Referrals: Tory Reynolds CRNP [Primary Care Provider] - Diet: Carb Consistent or DM2 Addtl Attending Provider Instructions: Take insulin as directed. Follow diabetic diet. Monitor fasting sugar level every morning and keep a record to show your primary care provider Pending Studies at Discharge: No Stand-Alone Forms: My [email or web address], Smoking Cessation Medications and DC Order Prescriptions: Continued cyanocobalamin (vitamin B-12) [Vitamin B-12] 500 mcg tablet 500 mcg PO DAILY sertraline 50 mg tablet 50 mg PO DAILY Qty: 30 2RF buspirone 5 mg tablet 5 mg PO TID Qty: 90 2RF (DME) lancets [OneTouch Delica Plus Lancet] 33 gauge misc See Rx Instructions .Route Qty: 100 11RF Rx Instructions: test blood sugar 3 x daily (DME) OneTouch Verio test strips Strip See Rx Instructions .Route Qty: 100 11RF Rx Instructions: test blood sugar 3 x daily (DME) pen needle, diabetic [BD Ultra-Fine Snow Pen Needle] 32 gauge x 5/32" needle See Rx Instructions .Route Qty: 100 3RF Rx Instructions: use once daily insulin degludec [Tresiba FlexTouch U-100] 100 unit/mL (3 mL) insulin pen 10 unit subcut DAILY Qty: 15 5RF garlic 500 mg capsule 500 mg PO DAILY ascorbic acid (vitamin C) 250 mg tablet 250 mg PO DAILY Discharge Orders: Discharge Order (Routine); Ordered 05/30/23 Ordered By: Rylan Carl Admission Data Admit Date/Time: 05/28/23 18:54 Attending Provider: Rylan Carl Admit Provider: Pola Serna Primary Care Provider: Tory Reynolds Other Providers: Jake Conrad Coding Level of Care Code 22717 INP/OBS DISCH >30 MIN Diagnoses Type 2 diabetes mellitus with hyperosmolar hyperglycemic state (HHS) E11.00 Anxiety and depression F41.9; F32.A Hyperlipidemia E78.5 Elevated blood pressure reading R03.0 Hyponatremia E87.1
== END 2023-05-30 14:38 | disposition home or self-care (01) | DRG 638 ==
LOC: ED 15:16 → SUATTDRO 18:54 → 2E 18:54

== ENCOUNTER 2024-03-05 08:12 | Inpatient (IN) ==
[2024-03-05] MEDS ORDERED: VANCOMYCIN CONSULT ACTIVE PRN ×2 (08:17→23:02)
[2024-03-05] MEDS: ONDANSETRON INJ 2 MG/ML 2 ML VIAL IV STA (08:26)
[2024-03-05] MEDS: ACETAMINOPHEN 1,000 MG/100 ML VIAL IV STA (08:27)
[2024-03-05] MEDS: SODIUM CHLORIDE 0.9% 2,000 ML IV SCH (08:31)
[2024-03-05] MEDS: CEFEPIME 2,000 MG/20 ML VIAL IV STA (08:34)
[2024-03-05 08:37] LABS: iSTAT Blood Urea Nitrogen 29 mg/dl (7-18); iSTAT Carbon Dioxide 17 mmol/L (24-31); iSTAT Chloride 96 mmol/L (101-112); iSTAT Creatinine 1.8 mg/dl (0.6-1.3); iSTAT Glucose > 700 mg/dl (70-99); iSTAT Hematocrit 29 % (37-47); iSTAT Hemoglobin 9.9 g/dl (12.0-16.0); iSTAT Ionized Calcium 1.17 mmol/l (1.12-1.32); iSTAT Potassium 4.7 mmol/L (3.3-5.0); iSTAT Sodium 130 mmol/L (135-144)
[2024-03-05 08:41] LABS: Appearance Urine Cloudy (Clear); Bacteria Urine Automated 4+ (None Seen); Bilirubin Urine Negative (Negative); Blood Urine 3+ (Negative); Cast Urine Automated 0-2 /lpf (0-2); Color Urine Red; Epithelial Cell Urine Auto 0-2 /hpf (0-2); Glucose Urine UA 3+ (Negative); Ketones Urine 1+ (Negative); Leukocyte Esterase Urine 1+ (Negative); Nitrite Urine Negative (Negative); Protein Urine 3+ (Negative); RBC Urine Automated >20 /hpf (0-2); Specific Gravity Urine 1.029 (1.000-1.030); Urobilinogen Urine Negative (Negative); WBC Urine Automated 21-50 /hpf (0-5)
[2024-03-05 08:43] LABS: Basophils # (auto) 0.06 K/uL (0.00-0.20); Basophils % (auto) 0.3 %; Eosinophils # (auto) 0.01 K/uL (0.00-0.50); Hematocrit (blood only) 29.5 % (37.0-47.0); Hemoglobin 10.3 g/dl (12.0-16.0); Immature Granulocytes # (auto) 0.48 K/uL (0.01-0.20); Immature Granulocytes % (auto) 2.3 %; Lymphocytes # (auto) 0.99 K/uL (1.20-3.40); Lymphocytes % (auto) 4.7 %; Mean Corpuscular Hemoglobin 29.3 pg (25.0-34.0); Mean Corpuscular Hgb Conc 34.9 g/dL (32.0-36.0); Mean Corpuscular Volume 83.8 fL (80.0-100.0); Mean Platelet Volume 9.8 fL (9.4-12.4); Monocytes # (auto) 1.11 K/uL (0.11-0.59); Monocytes % (auto) 5.3 %; Neutrophils # (auto) 18.46 K/uL (1.40-6.50); Neutrophils % (auto) 87.4 %; Platelet Count 409 K/uL (130-400); RDW Coefficient of Variation 12.4 % (11.5-14.5); RDW Standard Deviation 37.1 fL (36.4-46.3); Red Blood Count 3.52 M/uL (4.20-5.40); White Blood Count 21.11 K/ul (4.8-10.8)
--- NOTE | 2024-03-05 08:47 | XRay Report ---
SINGLE VIEW CHEST CLINICAL HISTORY: Generalized weakness. FINDINGS: An AP, portable, supine chest radiograph is compared to study dated 07/30/2023. The cardiome diastinal silhouette is top normal for projection. Chronic interstitial thickening is similar to prev ious. No airspace consolidation or large pleural effusion is identified. No pneumothorax is seen. The skeletal structures are osteopenic. The bony thorax is grossly intact. Degenerative change is noted in the shoulders. Calcific tendinopathy is seen on the left. IMPRESSION: No acute cardiopulmonary abnormality is identified. ACT 112: Negative or not required by law. Electronically signed by: Pola Ayala M.D. 03/05/2024 8:45 AM
[2024-03-05 08:48] LABS: Base Excess ABG -7.6 mEq/L (-9-1.8); HCO3 ABG 15 mmol/L (19-24); Oxygen Saturation ABG 97.5 % (90-95); PCO2 ABG 22 mmHg (35-46); PO2 ABG 82 mmHg (80-95); pH ABG 7.43 (7.35-7.45)
[2024-03-05 08:49] LABS: Allen Test Pos (Pos)
[2024-03-05] MEDS: VANCOMYCIN HCL 1,250 MG in SODIUM CHLORIDE 0.9% 500 ML IV ONE (08:54)
--- NOTE | 2024-03-05 08:59 | CT Scan Report ---
CT SCAN OF THE BRAIN WITHOUT IV CONTRAST CLINICAL HISTORY: Change in mental status. Unresponsive. COMPARISON STUDY: CT of the brain dated 07/30/2023. TECHNIQUE: Unenhanced axial CT scan of the brain is performed from the vertex to the skull base. A do se lowering technique was utilized adhering to the principles of ALARA. CT DOSE: 547.75 mGy.cm FINDINGS: Brain parenchyma: There is age-related involutional change noting mild subcortical and periventricula r microangiopathic disease. There is no hemorrhage, mass effect, or evidence of acute territorial isc hemia by CT criteria. Diamond-white matter differentiation is preserved. No extra-axial fluid collection is seen. Ventricles, sulci, cisterns: Prominent secondary to involutional change. Intracranial vasculature: There is atherosclerotic calcification of the cavernous carotid and vertebr al arteries. Calvarium: Unremarkable. Sinuses and mastoids: The visualized paranasal sinuses are clear. The mastoid air cells are well pneu matized. Orbits: The bony orbits are grossly intact. IMPRESSION: There is no hemorrhage, mass effect, or evidence of acute territorial ischemia by CT chen benavides. ACT 112: Negative or not required by law. Electronically signed by: Pola Ayala M.D. 03/05/2024 8:58 AM
[2024-03-05] MEDS ORDERED: PHARMACY GLYCEMIC MGMT CONSULT PRN ×3 (09:04→11:42)
[2024-03-05 09:26] LABS: Albumin Globulin Ratio 1.2 (0.9-2); Albumin Level 3.4 gm/dl (3.4-5.0); BUN Creatinine Ratio 18.3 (10-20); Bilirubin,Total 1.3 mg/dl (0.2-1.0); Creatinine Clr Calc Pharmacy 28.4 ml/min; Est GFR (African American) 32.1 ml/min; Est GFR (Non-African American) 27.7 ml/min; Globulin 2.8 gm/dl (2.5-4.0); Magnesium 1.8 mg/dl (1.7-2.4); Potassium 4.6 mmol/L (3.5-5.1); Thyroid Stimulating Hormone 1.761 uIu/ml (0.300-4.500); Total Protein 6.2 gm/dl (6.0-8.3); Troponin I High Sensitivity 1282.4 pg/ml (0-14)
[2024-03-05] MEDS: INSULIN REGULAR 250 UNITS in SODIUM CHLORIDE 0.9% 247.5 ML IV SCH (09:26)
[2024-03-05] MEDS: NovoLIN-R BOLUS FROM BAG IV ONE (09:28)
[2024-03-05] MEDS: HHS GOAL RANGE 250-350 mg/dl ONE (09:36)
[2024-03-05] MEDS: STAT IV Infusion **Titration per Protocol STA (09:36)
[2024-03-05 09:42] LABS: Adenovirus PCR Not Detected (NotDetected); Bordetella parapertussis PCR Not Detected (NotDetected); Bordetella pertussis PCR Not Detected (NotDetected); Chlamydia pneumoniae PCR Not Detected (NotDetected); Coronavirus 229E PCR Not Detected (NotDetected); Coronavirus CoV-2 (COVID19)PCR Not Detected (NotDetected); Coronavirus HKU1 PCR Not Detected (NotDetected); Coronavirus NL63 PCR Not Detected (NotDetected); Coronavirus OC43PCR Not Detected (NotDetected); Human Metapneumovirus PCR Not Detected (NotDetected); Influenza A PCR Not Detected (NotDetected); Influenza B PCR Not Detected (NotDetected); Mycoplasma pneumoniae PCR Not Detected (NotDetected); Parainfluenza Virus 1 PCR Not Detected (NotDetected); Parainfluenza Virus 2 PCR Not Detected (NotDetected); Parainfluenza Virus 3 PCR Not Detected (NotDetected); Parainfluenza Virus 4 PCR Not Detected (NotDetected); Respiratory Syncytial VirusPCR Not Detected (NotDetected); Rhinovirus/Enterovirus PCR Not Detected (NotDetected)
--- NOTE | 2024-03-05 09:54 | Communication Note ---
Date of Service: March 05, 2024 68 y/o with DM off meds with severe hyperclycemia and hyperosmolar nonketotic state as well as sepsis possibly due to UTI causing acute organ dysfunction including ONEIL, elevated lactate, acute metabolic encephalopathy, NSTEMI ED treatment IV insulin/drip, 3L IVF so far Cefepime, vancomycin horse shoer consulted
--- NOTE | 2024-03-05 10:41 | History & Physical Report ---
Date of Service March 05, 2024 Assessment & Plan (1) Sepsis: Plan: Lactate 4.6 -> 6.1 after 2L NSS bolus, additional Plasma-lyte bolus 1L ordered, continue to trend lactate Suspected urinary source (CT A/P ordered) +/- aspiration Broad spectrum antibiotics with cefepime and vancomycin given in the ER, will switch to vancomycin/Zosyn Follow up blood and urine cultures (2) Type 2 diabetes mellitus with hyperosmolar hyperglycemic state (HHS): Plan: Secondary to stopping diabetes medications HbA1C 9.2 in September, repeat with AM labs Insulin aim 150-250 due to concurrent DKA Half NSS + 20 meq KCl @ 150ml/hr after fluid resuscitation, add D5 once glucose within aim q4h BMP/pH/PO/Mg (3) DKA (diabetic ketoacidosis): Plan: Mostly HHS but mild DKA with ketonuria, bicarb 17, anion gap 21 (although suspect most of this is lactic acidosis) (4) Unresponsive state: Plan: ABG currently with appropriately low CO2 and tachypnea Continue to monitor for deterioration however she is not for intubation (5) Elevated troponin: Plan: Suspect demand related given etiologies as above New RBBB and TWI on EKG, doubtful PE given no hypoxia Trend troponin TTE (6) Hypertension: Plan: Hold all anti-hypertensives at this time (7) ONEIL (acute kidney injury): Plan: Suspected pre-renal Amado catheter inserted IV fluids as above (8) UTI (urinary tract infection): Plan VTE Prophylaxis - heparin 5000 units SQ BID Diet - NPO Disposition - admit to ICU Admission and Anticipated Discharge Date Admission Date: March 05, 2024 History of Present Illness Chief Complaint: Unresponsive state Primary Care Provider: MARNI Kirk Carol Cavazos is a 68 year old female who presents to the ER in an unresponsive state after her called EMS. Unable to get any history from patient due to unresponsive state. Reportedly she stopped using her diabetes medications 2 months ago due to concerns for side effects. She has a history of doing this previously. She reported to her family member vision blurring for the last week but was out on the porch yesterday mostly her normal self. Last known well 10 PM last night. This morning she was found unresponsive in her bed. Prior to arrival patient vomited and was concern for possible aspiration. Allergies Allergy/AdvReac Type Severity Reaction Status Date / Time No Known Allergies Allergy Verified 09/29/23 08:46 Home Medications Medication Instructions Recorded Confirmed Type ascorbic acid (vitamin C) 250 mg 250 mg PO DAILY 12/14/19 03/05/24 History tablet OneTouch Verio test strips (blood #100 ea 05/28/23 09/29/23 Rx sugar diagnostic) buspirone 5 mg tablet 5 mg PO TID #90 tabs 05/28/23 03/05/24 Rx lancets 33 gauge (OneTouch Delica #100 ea 05/28/23 09/29/23 Rx Plus Lancet) pen needle, diabetic 32 gauge x #100 ea 05/28/23 03/05/24 Rx 5/32" (BD Ultra-Fine Snow Pen Needle) rosuvastatin 20 mg tablet (Crestor) 20 mg PO DAILY #30 tabs 06/25/23 03/05/24 Rx clotrimazole 1 % topical cream 1 applic topical BID #30 grams 07/30/23 03/05/24 Rx (Lotrimin AF (clotrimazole)) gabapentin 100 mg capsule 100 mg PO TID #90 caps 07/30/23 03/05/24 Rx metformin 500 mg tablet 500 mg PO BIDWMEAL 07/30/23 03/05/24 History sertraline 50 mg tablet 50 mg PO DAILY #30 tabs 08/13/23 03/05/24 Rx losartan 50 mg tablet 50 mg PO DAILY #90 tabs 09/18/23 03/05/24 Rx furosemide 20 mg tablet 0 mg PO DAILY 03/05/24 03/05/24 History insulin degludec 100 unit/mL (3 0 unit subcut DAILY 03/05/24 03/05/24 History mL) subcutaneous pen (Tresiba FlexTouch U-100 insulin) tirzepatide 2.5 mg/0.5 mL 0 mg subcut WK 03/05/24 03/05/24 History subcutaneous pen injector (Mounjaro) Past Med/Surg History Medical History (Updated 03/05/24 @ 11:55 by Elton Lacey MD) Acute metabolic encephalopathy Severe sepsis Complicated UTI (urinary tract infection) Lactic acidosis HHS (hypothenar hammer syndrome) Neuropathic pain of both feet Edema of both legs Anxiety and depression Type 2 diabetes mellitus, uncontrolled Hyperlipidemia Lichen sclerosus et atrophicus Noncompliance with treatment plan Type II diabetes mellitus with neurological manifestations, uncontrolled Diabetes mellitus type 2, uncontrolled, with complications Surgical History History of lumbar surgery L4-L5 H/O total hysterectomy Family History Father Diabetes Prostate cancer Grandmother Diabetes Aunt Colorectal cancer Brother Stroke Denies family history of Ovarian cancer Myocardial infarction Breast cancer Social History Smoking Status: Unknown if ever smoked Second Hand Exposure: No; Do You Dip or Chew Tobacco: No; Hx Alcohol Use: No Hx Substance Use: No Preferred Language: Italian Communication Ability: Effective Visual Impairment: No Limitations Hearing Ability: Normal Creative Perfumer Required: No Beliefs That Will Affect Care: None marital status: Current Living Situation: Spouse Current Living Situation Comment: Lives with , 4 grandchildren and son. 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 How many Children do You have: 3 Feels Safe at Home: Yes Childhood Exposure to Second-Hand Smoke: No Diet: regular caffeine: Yes (soda) during the past year weight has: remained stable Dental Care, Regularly: No Physical Activity Frequency: Does not Exercise Seatbelt Use: always Sunscreen Use: No Assistive Devices: None Review of Systems Review of Systems: Unobtainable due to reduced consciousness Physical Exam Constitutional: + not well nourished and no acute distre ss Eyes: PERRL, conjunctivae normal, anicteric sclerae ENMT: Mouth: + dry oral mucous membranes Mouth closer shut, unable to test gag reflex with tongue depressor Respiratory: normal respiratory effort; no respiratory distress Auscultation: + rhonchi (bilateral); no wheezes Cardiovascular: Rate/Rhythm: regular rhythm and + tachycardic Heart Sounds: no murmur Gastrointestinal (Abdomen): normal bowel sounds, soft, nontender, no hepatosplenomegaly Skin: no rashes, warm and dry Neurologic: + does not move all extremities and + no t awake Psychiatric: Orientation: + not alert (GCS3 (E1V1M1)) Results & Data Results & Data Vital Signs (Past 12 Hours) Vital Signs Temp Pulse Resp BP Pulse Ox O2 Del Method 03/05/24 09:59 135 H 28 H 143/97 H 97 03/05/24 09:45 139 H 28 H 153/105 H 97 03/05/24 09:30 139 H 23 144/110 H 96 03/05/24 09:00 142 H 25 H 155/130 H 96 03/05/24 08:53 145 H 23 182/139 H 95 Room Air 03/05/24 08:31 144 H 25 H 184/115 H 97 Room Air 03/05/24 08:30 142 H 03/05/24 08:17 39.4 C H 141 H 22 177/112 H 98 Room Air 03/05/24 08:13 144 H 22 98 Room Air Laboratory Results Abnormal lab results 03/05/24 03/05/24 03/05/24 Range/Units 08:20 08:24 08:31 WBC 21.11 H (4.8-10.8) K/ul RBC 3.52 L (4.20-5.40) M/uL Hgb 10.3 L (12.0-16.0) g/dl POC Hgb 9.9 L (12.0-16.0) g/dl Hct 29.5 L (37.0-47.0) % POC Hct 29 L (37-47) % Plt Count 409 H (130-400) K/uL Neut # (Auto) 18.46 H (1.40-6.50) K/uL Lymph # (Auto) 0.99 L (1.20-3.40) K/uL Billings # (Auto) 1.11 H (0.11-0.59) K/uL Immature Gran # (Auto) 0.48 H (0.01-0.20) K/uL ABG pCO2 22 L (35-46) mmHg ABG HCO3 15 L (19-24) mmol/L ABG O2 Saturation 97.5 H (90-95) % POC Sodium 130 L (135-144) mmol/L Sodium 132 L (136-145) mmol/L POC Chloride 96 L (101-112) mmol/L Chloride 94 L (98-107) mmol/L Carbon Dioxide 17 L (21-32) mmol/L POC Total CO2 17 L (24-31) mmol/L Anion Gap 21 H (3-11) POC BUN 29 H (7-18) mg/dl BUN 34 H (6-23) mg/dl Creatinine 1.86 H (0.6-1.2) mg/dl POC Creatinine 1.8 H (0.6-1.3) mg/dl Glucose 1069 H* (70-99(Fasting)) mg/dl POC Glucose > 600 H* (70-99) mg/dl POC Glucose (other) > 700 H* (70-99) mg/dl Lactate 4.6 H* (0.4-2.0) mmol/L Total Bilirubin 1.3 H (0.2-1.0) mg/dl Alkaline Phosphatase 139 H (34-104) U/L Troponin I High Sens 1282.4 H* (0-14) pg/ml Urine Appearance (Clear) Urine Protein (Negative) Urine Glucose (UA) (Negative) Urine Ketones (Negative) Urine Blood (Negative) Ur Leukocyte Esterase (Negative) Urine WBC (Auto) (0-5) /hpf Urine RBC (Auto) (0-2) /hpf Urine Bacteria (Auto) (None Seen) 03/05/24 03/05/24 03/05/24 Range/Units 10:18 10:21 Unknown WBC (4.8-10.8) K/ul RBC (4.20-5.40) M/uL Hgb (12.0-16.0) g/dl POC Hgb (12.0-16.0) g/dl Hct (37.0-47.0) % POC Hct (37-47) % Plt Count (130-400) K/uL Neut # (Auto) (1.40-6.50) K/uL Lymph # (Auto) (1.20-3.40) K/uL Billings # (Auto) (0.11-0.59) K/uL Immature Gran # (Auto) (0.01-0.20) K/uL ABG pCO2 (35-46) mmHg ABG HCO3 (19-24) mmol/L ABG O2 Saturation (90-95) % POC Sodium (135-144) mmol/L Sodium (136-145) mmol/L POC Chloride (101-112) mmol/L Chloride (98-107) mmol/L Carbon Dioxide (21-32) mmol/L POC Total CO2 (24-31) mmol/L Anion Gap (3-11) POC BUN (7-18) mg/dl BUN (6-23) mg/dl Creatinine (0.6-1.2) mg/dl POC Creatinine (0.6-1.3) mg/dl Glucose (70-99(Fasting)) mg/dl POC Glucose > 600 H* (70-99) mg/dl POC Glucose (other) (70-99) mg/dl Lactate 6.1 H* (0.4-2.0) mmol/L Total Bilirubin (0.2-1.0) mg/dl Alkaline Phosphatase (34-104) U/L Troponin I High Sens (0-14) pg/ml Urine Appearance Cloudy A (Clear) Urine Protein 3+ H (Negative) Urine Glucose (UA) 3+ H (Negative) Urine Ketones 1+ H (Negative) Urine Blood 3+ H (Negative) Ur Leukocyte Esterase 1+ H (Negative) Urine WBC (Auto) 21-50 H (0-5) /hpf Urine RBC (Auto) >20 H (0-2) /hpf Urine Bacteria (Auto) 4+ H (None Seen) Diagnostic Findings CT SCAN OF THE BRAIN WITHOUT IV CONTRAST CLINICAL HISTORY: Change in mental status. Unresponsive. COMPARISON STUDY: CT of the brain dated 07/30/2023. TECHNIQUE: Unenhanced axial CT scan of the brain is performed from the vertex to the skull base. A dose lowering technique was utilized adhering to the principles of ALARA. CT DOSE: 547.75 mGy.cm FINDINGS: Brain parenchyma: There is age-related involutional change noting mild subcortical and periventricular microangiopathic disease. There is no hemorrhage, mass effect, or evidence of acute territorial ischemia by CT criteria. Diamond-white matter differentiation is preserved. No extra-axial fluid collection is seen. Ventricles, sulci, cisterns: Prominent secondary to involutional change. Intracranial vasculature: There is atherosclerotic calcification of the cavernous carotid and vertebral arteries. Calvarium: Unremarkable. Sinuses and mastoids: The visualized paranasal sinuses are clear. The mastoid air cells are well pneumatized. Orbits: The bony orbits are grossly intact. IMPRESSION: There is no hemorrhage, mass effect, or evidence of acute territorial ischemia by CT criteria. SINGLE VIEW CHEST CLINICAL HISTORY: Generalized weakness. FINDINGS: An AP, portable, supine chest radiograph is compared to study dated 07/30/2023. The cardiomediastinal silhouette is top normal for projection. Chronic interstitial thickening is similar to previous. No airspace consolidation or large pleural effusion is identified. No pneumothorax is seen. The skeletal structures are osteopenic. The bony thorax is grossly intact. Degenerative change is noted in the shoulders. Calcific tendinopathy is seen on the left. IMPRESSION: No acute cardiopulmonary abnormality is identified. Medications Administered ER medications given: Normal saline 2 L bolus Ondansetron 4 mg IV Acetaminophen 1 g IV Cefepime 2 g IV Vancomycin 1250 mg IV ECG Rate (beats per minute): 141 Rhythm: sinus tachycardia Findings: + PAC and + RBBB Comparison ECG Date: from (July 30, 2023) Change: the following changes noted (RBBB is new) Code Status & VTE Plan Code Status DNR/DNI as discussed with her at bedside which appears very consistent with her prior wishes, no official POA VTE Prophylaxis Plan VTE Prophylaxis will be ordered: Yes Critical Care Time Critical Care Time: Yes Total Critical Care Time: 35 PG Care Time/CCT Total # of Minutes Spent Total Time Spent with Patient: Total time spent is greater than 50% in coordination of care (as documented) at patient's floor/unit and/or counseling patient: Critical Care Time: Yes Total Critical Care Time: 35 Coding Level of Care Code 60891 INT INP/OBS CARE 3/75MIN Diagnoses Sepsis A41.9 Type 2 diabetes mellitus with hyperosmolar hyperglycemic state (HHS) E11.00 DKA (diabetic ketoacidosis) E11.10 Unresponsive state R41.89 Elevated troponin R79.89 Hypertension I10 ONEIL (acute kidney injury) N17.9 UTI (urinary tract infection) N39.0 Additional Codes Critical Care Time - Critical Care Time: Yes ([id number])
[2024-03-05] MEDS ORDERED: STAT IV Infusion **Titration per Protocol STA (10:44)
[2024-03-05] MEDS ORDERED: INSULIN REGULAR 250 UNITS in SODIUM CHLORIDE 0.9% 247.5 ML IV SCH (10:45)
[2024-03-05 11:01] LABS: Phosphorus 3.6 mg/dl (2.5-4.9)
[2024-03-05 11:10] LABS: Troponin I High Sensitivity 1914.9 pg/ml (0-14)
[2024-03-05] MEDS ORDERED: SODIUM CHLOR 0.45% + 20MEQ KCL 20 MEQ/1,000 ML BAG IV SCH (11:30)
[2024-03-05] MEDS ORDERED: ICU Protocol for HYPERglycemia SCH (11:30)
[2024-03-05] MEDS ORDERED: PENDING D5 1/2NS+20mEq KCL IVF SCH (11:45)
--- NOTE | 2024-03-05 11:56 | Critical Care Consultation ---
Date of Consultation March 05, 2024 Assessment & Plan (1) HHS (hypothenar hammer syndrome): (2) Lactic acidosis: (3) Complicated UTI (urinary tract infection): (4) Severe sepsis: (5) Elevated troponin: (6) ONEIL (acute kidney injury): (7) Acute metabolic encephalopathy: Plan 68-year-old female with a history of medical noncompliance, poorly controlled diabetes mellitus, hypertension and right bundle branch block who presented with altered mental status and severe HHS/DKA. Continue with aggressive fluid hydration, frequent chemistries and IV insulin. Continue with IV Zosyn and check MRSA screen. Patient with severe sepsis possibly from UTI. Blood and urine cultures pending. Chest x-ray unremarkable. CT head unremarkable. CT abdomen/pelvis pending. Check lipase level. Troponin notably elevated likely due to demand ischemia. Will continue to trend and consider the initiation of heparin if troponin significantly trends upward. Echo ordered. Patient certainly at risk for coronary artery disease. Check hemoglobin A1c. Trend lactate. Check ammonia Patient severely hypothermic. Suspect secondary to sepsis. Will obtain urine drug screen. Serotonin syndrome lower on the differential, but remains a concern. ONEIL noted. Will check CK to evaluate for rhabdo. Continue with cooling blanket. Will give IV Tylenol. Will also check salicylate level and acetaminophen level. CODE STATUS at this time DNR/DNI per family. CRITICAL CARE TIME - I have personally spent 45 minutes of critical care time in the direct management of this patient. This is a life/limb threatening event. This includes time spent evaluating patient, direct bedside care, chart review, placing orders, interpretation of diagnostic studies, discussion with consultants, patient, and family members, as well as other required patient management activities. This time is exclusive of all separately billable procedures, and teaching time and separate from and in addition to any other critical care service time. History of Present Illness Reason for Consultation: Unresponsiveness and HHS/DKA Attending Physician: Jake Conrad MD History of Present Illness 68-year-old female with a history of longstanding diabetes and poor compliance who presented to the ER today via 911 as her called EMS because she was unresponsive. No history obtainable at this time given the patient's encephalopathy. Collateral history obtained from bedside nurse, hospitalist service and ER physician. Reportedly the patient stopped using diabetic medications 2 months ago patient reported ongoing blurry vision over the last few weeks and was found unresponsive by her . There was also concern for possible aspiration as she vomited earlier today. In the ER she was started on IV fluids, IV insulin and broad-spectrum antibiotics. She is being transferred to the ICU for further management given her encephalopathy, concern for airway compromise and severe metabolic derangements. ABG revealed compensatory respiratory alkalosis and primary metabolic acidosis. Labs suggestive of acidemia, lactic acidosis and ONEIL. Glucose very elevated with the last check of 842 at 10:[address] head negative for acute findings on admission. Chest x- ray revealed chronic coarsening of interstitial markings. No acute findings. CT abdomen pelvis completed with official read pending. LFTs generally unremarkable. Lipase pending. UA concerning for possible UTI. Patient on Zosyn currently. Allergies Allergy/AdvReac Type Severity Reaction Status Date / Time No Known Allergies Allergy Verified 09/29/23 08:46 Home Medications Medication Instructions Recorded Confirmed Type ascorbic acid (vitamin C) 250 mg 250 mg PO DAILY 12/14/19 03/05/24 History tablet OneTouch Verio test strips (blood #100 ea 05/28/23 09/29/23 Rx sugar diagnostic) buspirone 5 mg tablet 5 mg PO TID #90 tabs 05/28/23 03/05/24 Rx lancets 33 gauge (OneTouch Delica #100 ea 05/28/23 09/29/23 Rx Plus Lancet) pen needle, diabetic 32 gauge x #100 ea 05/28/23 03/05/24 Rx 5/32" (BD Ultra-Fine Snow Pen Needle) rosuvastatin 20 mg tablet (Crestor) 20 mg PO DAILY #30 tabs 06/25/23 03/05/24 Rx clotrimazole 1 % topical cream 1 applic topical BID #30 grams 07/30/23 03/05/24 Rx (Lotrimin AF (clotrimazole)) gabapentin 100 mg capsule 100 mg PO TID #90 caps 07/30/23 03/05/24 Rx metformin 500 mg tablet 500 mg PO BIDWMEAL 07/30/23 03/05/24 History sertraline 50 mg tablet 50 mg PO DAILY #30 tabs 08/13/23 03/05/24 Rx losartan 50 mg tablet 50 mg PO DAILY #90 tabs 09/18/23 03/05/24 Rx furosemide 20 mg tablet 0 mg PO DAILY 03/05/24 03/05/24 History insulin degludec 100 unit/mL (3 0 unit subcut DAILY 03/05/24 03/05/24 History mL) subcutaneous pen (Tresiba FlexTouch U-100 insulin) tirzepatide 2.5 mg/0.5 mL 0 mg subcut WK 03/05/24 03/05/24 History subcutaneous pen injector (Wilianunjaro) Patient History Medical History (Updated 03/05/24 @ 11:55 by Elton Lacey MD) Acute metabolic encephalopathy Severe sepsis Complicated UTI (urinary tract infection) Lactic acidosis HHS (hypothenar hammer syndrome) Neuropathic pain of both feet Edema of both legs Anxiety and depression Type 2 diabetes mellitus, uncontrolled Hyperlipidemia Lichen sclerosus et atrophicus Noncompliance with treatment plan Type II diabetes mellitus with neurological manifestations, uncontrolled Diabetes mellitus type 2, uncontrolled, with complications Surgical History History of lumbar surgery L4-L5 H/O total hysterectomy Family History Father Diabetes Prostate cancer Grandmother Diabetes Aunt Colorectal cancer Brother Stroke Denies family history of Ovarian cancer Myocardial infarction Breast cancer Social History Smoking Status: Unknown if ever smoked Second Hand Exposure: No; Do You Dip or Chew Tobacco: No; Hx Alcohol Use: No Hx Substance Use: No Preferred Language: Tajik Communication Ability: Effective Visual Impairment: No Limitations Hearing Ability: Normal Medical Assistant Dermatology Required: No Beliefs That Will Affect Care: None marital status: Current Living Situation: Spouse Current Living Situation Comment: Lives with , 4 grandchildren and son. 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 How many Children do You have: 3 Feels Safe at Home: Yes Childhood Exposure to Second-Hand Smoke: No Diet: regular caffeine: Yes (soda) during the past year weight has: remained stable Dental Care, Regularly: No Physical Activity Frequency: Does not Exercise Seatbelt Use: always Sunscreen Use: No Assistive Devices: None Review of Systems Review of Systems: Unobtainable due to reduced consciousness Physical Exam Physical Exam: Constitutional: Patient appears to be of their stated age. Patient in moderate distress Eyes: Pupils are equal round and reactive to light. Conjunctivae are normal. Anicteric sclera. Ears nose, mouth and throat: Mallampati class 2. Normal posterior oropharynx. Uvula is midline. Neck: Trachea is midline. Visual inspection is normal. Respiratory: Clear to auscultation bilaterally. Tachypneic. Cardiovascular: Regular rate and rhythm. No murmurs. No edema. Gastrointestinal: Normal bowel sounds, soft, nontender and nondistended. No hepatosplenomegaly noted. Musculoskeletal: No cyanosis. Patient is able to move all extremities. Strength is 5 out of 5 in the upper and lower extremities. Skin: No rashes, warm dry and intact. Neurologic: Nonfocal, but clearly encephalopathic. Psychiatric: Unable to assess due to encephalopathy. Results & Data Results & Data Vital Signs (Past 12 Hours) Vital Signs Temp Pulse Resp BP Pulse Ox O2 Del Method 03/05/24 09:59 135 H 28 H 143/97 H 97 03/05/24 09:45 139 H 28 H 153/105 H 97 03/05/24 09:30 139 H 23 144/110 H 96 03/05/24 09:00 142 H 25 H 155/130 H 96 03/05/24 08:53 145 H 23 182/139 H 95 Room Air 03/05/24 08:31 144 H 25 H 184/115 H 97 Room Air 03/05/24 08:30 142 H 03/05/24 08:17 39.4 C H 141 H 22 177/112 H 98 Room Air 03/05/24 08:13 144 H 22 98 Room Air Coding Level of Care Code 69867 CRITICAL CARE 1ST 30-74M Diagnoses HHS (hypothenar hammer syndrome) I73.89 Lactic acidosis E87.20 Complicated UTI (urinary tract infection) N39.0 Severe sepsis A41.9; R65.20 Elevated troponin R79.89 ONEIL (acute kidney injury) N17.9 Acute metabolic encephalopathy G93.41 Time Spent (min) 45
[2024-03-05] MEDS ORDERED: DEXTROSE 50% 50 ML SYRINGE IV PRN (12:00)
[2024-03-05] MEDS ORDERED: GLUCOSE 10 TAB/TUBE PO PRN (12:00)
[2024-03-05] MEDS ORDERED: CARBOHYDRATES FOR HYPOGLYCEMIA PO PRN (12:00)
[2024-03-05] MEDS ORDERED: GLUCAGON FOR INJ 1 MG VIAL IM PRN (12:00)
[2024-03-05] MEDS ORDERED: GLUCOSE 40% GEL 15 GM TUBE PO PRN (12:00)
[2024-03-05] MEDS: PLASMA-LYTE A 1,000 ML IV ONE (12:04)
[2024-03-05] MEDS: PIPERACILLIN/TAZOBACTAM 4.5 GM in DEXTROSE 5% MINI-B 100 ML IV ONE (12:07)
[2024-03-05] MEDS: INSULIN ASPART PER UNIT CHARGE SC SCH (12:32)
--- NOTE | 2024-03-05 12:47 | Emergency Department Note ---
Impression & Plan Type 2 diabetes mellitus with hyperosmolar hyperglycemic state (HHS), Sepsis, Encephalopathy, Acute UTI ED Provider Note CHIEF COMPLAINT: Altered mental status HISTORY OF PRESENT ILLNESS: This 68-year-old female patient with past medical history of uncontrolled diabetes, UTI, hypertension, diabetic neuropathy, hyponatremia, presents emergency department with complaints of altered mentation per her . Patient vomited sometime overnight and he was not able to wake up this morning. Patient's blood glucose is read as high per the EMS monitor. She is noted to be febrile and tachycardic, responded only to the IO being placed. There is no reported injury/head trauma. told EMS that the patient has been off of her diabetic medications including ? Tresiba and metformin for about 6 months. REVIEW OF SYSTEMS: A review of systems was performed with positives and pertinent negatives listed in the history of present illness. 10 systems were reviewed and are otherwise negative. ALLERGIES: see below MEDICATIONS: see below PMH: see below SOCIAL HISTORY: see below DDx: sepsis, HHS, acidosis, dehydration, intracranial hemorrhage, intracranial mass, seizure, viral illness among others. PHYSICAL EXAM: Vital signs reviewed. Noted to be tachycardic, hypertensive and febrile. General: Chronically ill-appearing 68-year-old female, unresponsive and critically ill. HEENT: No conjunctival injection, PERRLA, neck supple. dry mucous membranes. Cardiovascular: Tachycardic and regular. Pulmonary: Clear to auscultation bilaterally, rapid and shallow breathing. Abdomen: Soft, nontender, nondistended, positive bowel sounds. Musculoskeletal: Atraumatic, minimal peripheral edema. Neurologic: Patient is largely unresponsive. She will withdraw to deep pain, but does not respond to voice. Skin: Warm, dry, no rash EMERGENCY DEPARTMENT COURSE/MDM: This patient was evaluated and appeared to be critically ill and encephalopathic. IV access had been obtained by EMS and patient also had an IO in use. IV fluids were initiated with a 2 L normal saline boluses patient was noted to be tachycardic with glucose reads of "high." Patient seems to be maintaining her airway without supplemental O2. She is febrile and given 1 g of IV acetaminophen. Laboratory work including blood cultures and lactate was performed. Patient's blood glucose is 1069 among other electrolyte abnormalities such as mild hyponatremia at 132, anion gap 21, lactate of 4.6 and a prerenal state. ABG indicates pH of 7.43, pCO2 of 22, bicarb of 15 with a pO2 of 82. A 3rd L of normal saline solution was administered in addition to an insulin drip. UA is indicative of infection, patient was given 2 g of IV ceftriaxone. The patient's case was discussed with the hospitalist service, Dr. Josue and Dr. Conrad, who have agreed to evaluate the patient for admission and further management. ICU attending Dr. Murray was also informed of the patient's case. 7.43 (7.35-7.45) ABG pCO2 22 L (35-46) mmHg ABG pO2 82 (80-95) mmHg ABG HCO3 15 L (19-24) mmol/L ABG O2 Saturation 97.5 H (90-95) % ABG Base Excess -7.6 (-9-1.8) mEq/L Jacob Test Pos (Pos) Oxygen Given Room Air MONITORING: An order for cardiac monitoring was placed and the patient is noted to be in a sinus tachycardia at 134 bpm RADIOLOGY: chest x-ray to my interpretation reveals no evidence of acute abnormality. otherwise defer to radiology is over read. Head CT per radiology reveals No evidence of acute intracranial abnormality. Please see final read below. EKG: To my interpretation reveals a sinus tachycardia with a right bundle branch block T wave abnormality in inferior leads. Poor quality baseline for interpretation. QTc of 517. DISPOSITION: Admit I have personally spent 75 minutes of critical care time in the direct management of this patient. This was a life/limb threatening event. This 75 minutes is in excess of all separately billable procedures. Past Med/Surg History Medical History Pulmonary edema Hyperosmolar hyperglycemic state (HHS) Acute metabolic encephalopathy Severe sepsis Complicated UTI (urinary tract infection) Lactic acidosis HHS (hypothenar hammer syndrome) Neuropathic pain of both feet Edema of both legs Anxiety and depression Type 2 diabetes mellitus, uncontrolled Hyperlipidemia Lichen sclerosus et atrophicus Noncompliance with treatment plan Type II diabetes mellitus with neurological manifestations, uncontrolled Diabetes mellitus type 2, uncontrolled, with complications Surgical History History of lumbar surgery L4-L5 H/O total hysterectomy Family History Father Diabetes Prostate cancer Grandmother Diabetes Aunt Colorectal cancer Brother Stroke Denies family history of Ovarian cancer Myocardial infarction Breast cancer Social History Smoking Status: Unknown if ever smoked Second Hand Exposure: No; Do You Dip or Chew Tobacco: No; Hx Alcohol Use: No Hx Substance Use: No Preferred Language: Stateless Communication Ability: Impaired Visual Impairment: No Limitations Hearing Ability: Normal A Class Lineman Required: No Beliefs That Will Affect Care: None marital status: Current Living Situation: Spouse Current Living Situation Comment: Lives with , 4 grandchildren and son. 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 How many Children do You have: 3 Feels Safe at Home: Yes Childhood Exposure to Second-Hand Smoke: No Diet: regular caffeine: Yes (soda) during the past year weight has: remained stable Dental Care, Regularly: No Physical Activity Frequency: Does not Exercise Seatbelt Use: always Sunscreen Use: No Assistive Devices: None Allergies Allergies Allergy/AdvReac Type Severity Reaction Status Date / Time No Known Allergies Allergy Verified 09/29/23 08:46 Home Meds Home Medications Medication Instructions Recorded Confirmed ascorbic acid (vitamin C) 250 mg 250 mg PO DAILY 12/14/19 03/05/24 tablet metformin 500 mg tablet 500 mg PO BIDWMEAL 07/30/23 03/05/24 furosemide 20 mg tablet 0 mg PO DAILY 03/05/24 03/05/24 insulin degludec 100 unit/mL (3 0 unit subcut DAILY 03/05/24 03/05/24 mL) subcutaneous pen (Tresiba FlexTouch U-100 insulin) tirzepatide 2.5 mg/0.5 mL 0 mg subcut WK 03/05/24 03/05/24 subcutaneous pen injector (Silvana) Previous Rx's Medication Instructions Recorded OneTouch Verio test strips (blood #100 ea 05/28/23 sugar diagnostic) buspirone 5 mg tablet 5 mg PO TID #90 tabs 05/28/23 lancets 33 gauge (OneTouch Delica #100 ea 05/28/23 Plus Lancet) pen needle, diabetic 32 gauge x #100 ea 05/28/23" (BD Ultra-Fine Snow Pen Needle) rosuvastatin 20 mg tablet (Crestor) 20 mg PO DAILY #30 tabs 06/25/23 clotrimazole 1 % topical cream 1 applic topical BID #30 grams 07/30/23 (Lotrimin AF (clotrimazole)) gabapentin 100 mg capsule 100 mg PO TID #90 caps 07/30/23 sertraline 50 mg tablet 50 mg PO DAILY #30 tabs 08/13/23 losartan 50 mg tablet 50 mg PO DAILY #90 tabs 09/18/23 Results & Data (ED) Vital Signs Vital Signs - 24 hr 03/05/24 08:13 03/05/24 08:17 03/05/24 08:30 Temperature 39.4 C H Temperature Source Amado Cath ( Temp Sensing) Pulse Rate 144 H 141 H 142 H Pulse Rate from SpO2 Sensor Pulse Rhythm Regular Pulse Strength Normal Respiratory Rate 22 22 Respiratory Effort / Characteristics Non-Labored Spontaneous Respiratory Depth Normal Blood Pressure 177/112 H Blood Pressure Mean 133 Blood Pressure Position Sitting Pulse Oximetry 98 98 Oxygen Delivery Method Room Air Room Air Sepsis Recent Fever Within 48 Hours Yes Sepsis New/Unexplained Change in Mental Status Yes Sepsis Action Taken by Nursing Physician Notified 03/05/24 08:31 03/05/24 08:53 03/05/24 09:00 Temperature Temperature Source Pulse Rate 144 H 145 H 142 H Pulse Rate from SpO2 Sensor 144 H 146 H 143 H Pulse Rhythm Pulse Strength Respiratory Rate 25 H 23 25 H Respiratory Effort / Characteristics Respiratory Depth Blood Pressure 184/115 H 182/139 H 155/130 H Blood Pressure Mean 138 153 138 Blood Pressure Position Pulse Oximetry 97 95 96 Oxygen Delivery Method Room Air Room Air Sepsis Recent Fever Within 48 Hours Sepsis New/Unexplained Change in Mental Status Sepsis Action Taken by Nursing 03/05/24 09:30 03/05/24 09:45 03/05/24 09:59 Temperature Temperature Source Pulse Rate 139 H 139 H 135 H Pulse Rate from SpO2 Sensor 137 H 139 H 136 H Pulse Rhythm Pulse Strength Respiratory Rate 23 28 H 28 H Respiratory Effort / Characteristics Respiratory Depth Blood Pressure 144/110 H 153/105 H 143/97 H Blood Pressure Mean 121 121 112 Blood Pressure Position Pulse Oximetry 96 97 97 Oxygen Delivery Method Sepsis Recent Fever Within 48 Hours Sepsis New/Unexplained Change in Mental Status Sepsis Action Taken by [facility] Medications Current Medication List: was personally reviewed by il Laboratory Data Attestation: I reviewed the patient's lab results. 03/09/24 06:27 03/09/24 06:27 Lab Results 03/05/24 03/05/24 03/05/24 Range/Units 08:20 08:24 08:31 WBC 21.11 H (4.8-10.8) K/ul RBC 3.52 L (4.20-5.40) M/uL Hgb 10.3 L (12.0-16.0) g/dl POC Hgb 9.9 L (12.0-16.0) g/dl Hct 29.5 L (37.0-47.0) % POC Hct 29 L (37-47) % MCV 83.8 (80.0-100.0) fL MCH 29.3 (25.0-34.0) pg MCHC 34.9 (32.0-36.0) g/dL RDW Std Deviation 37.1 (36.4-46.3) fL RDW Coeff of Abel 12.4 (11.5-14.5) % Plt Count 409 H (130-400) K/uL MPV 9.8 (9.4-12.4) fL Immature Gran % (Auto) 2.3 % Neut % (Auto) 87.4 % Lymph % (Auto) 4.7 % [place] % (Auto) 5.3 % Eos % (Auto) 0.0 % Baso % (Auto) 0.3 % Neut # (Auto) 18.46 H (1.40-6.50) K/uL Lymph # (Auto) 0.99 L (1.20-3.40) K/uL [place] # (Auto) 1.11 H (0.11-0.59) K/uL Eos # (Auto) 0.01 (0.00-0.50) K/uL Baso # (Auto) 0.06 (0.00-0.20) K/uL Immature Gran # (Auto) 0.48 H (0.01-0.20) K/uL ABG pH 7.43 (7.35-7.45) ABG pCO2 22 L (35-46) mmHg ABG pO2 82 (80-95) mmHg ABG HCO3 15 L (19-24) mmol/L ABG O2 Saturation 97.5 H (90-95) % ABG Base Excess -7.6 (-9-1.8) mEq/L Jacob Test Pos (Pos) Oxygen Given Room Air POC Sodium 130 L (135-144) mmol/L Sodium 132 L (136-145) mmol/L POC Potassium 4.7 (3.3-5.0) mmol/L Potassium 4.6 (3.5-5.1) mmol/L POC Chloride 96 L (101-112) mmol/L Chloride 94 L (98-107) mmol/L Carbon Dioxide 17 L (21-32) mmol/L POC Total CO2 17 L (24-31) mmol/L Anion Gap 21 H (3-11) POC Anion Gap 23.0 (16-25) mmol/L POC BUN 29 H (7-18) mg/dl BUN 34 H (6-23) mg/dl Creatinine 1.86 H (0.6-1.2) mg/dl POC Creatinine 1.8 H (0.6-1.3) mg/dl Est Cr Clr Drug Dosing 28.4 ml/min Est GFR ( Amer) 32.1 ml/min Est GFR (Non-Af Amer) 27.7 ml/min BUN/Creatinine Ratio 18.3 (10-20) Glucose 1069 H* (70-99(Fasting)) mg/dl POC Glucose > 600 H* (70-99) mg/dl POC Glucose (other) > 700 H* (70-99) mg/dl Lactate 4.6 H* (0.4-2.0) mmol/L Calcium 9.0 (8.6-10.3) mg/dl POC Ioniz Calcium Ghassan 1.17 (1.12-1.32) mmol/l Phosphorus (2.5-4.9) mg/dl Magnesium 1.8 (1.7-2.4) mg/dl Total Bilirubin 1.3 H (0.2-1.0) mg/dl AST 18 (13-39) U/L ALT 11 (7-52) U/L Alkaline Phosphatase 139 H (34-104) U/L Troponin I High Sens 1282.4 H* (0-14) pg/ml Total Protein 6.2 (6.0-8.3) gm/dl Albumin 3.4 (3.4-5.0) gm/dl Globulin 2.8 (2.5-4.0) gm/dl Albumin/Globulin Ratio 1.2 (0.9-2) Procalcitonin 1.17 H (0-0.5) ng/ml TSH 1.761 (0.300-4.500) uIu/ml Adenovirus (PCR) (NotDetected) B. pertussis DNA (PCR) (NotDetected) B.parapertussis DNA PCR (NotDetected) C. pneumoniae DNA (PCR) (NotDetected) Coronavirus OC43 (PCR) (NotDetected) Coronavirus HKU1 (PCR) (NotDetected) Coronavirus 229E (PCR) (NotDetected) SARS-CoV-2 (PCR) (NotDetected) Coronavirus NL63 (PCR) (NotDetected) Human Metapneumovir PCR (NotDetected) Influenza Type A (PCR) (NotDetected) Influenza Type B (PCR) (NotDetected) M. pneumoniae (PCR) (NotDetected) Parainfluenza 1 (PCR) (NotDetected) Parainfluenza 2 (PCR) (NotDetected) Parainfluenza 3 (PCR) (NotDetected) Parainfluenza 4 (PCR) (NotDetected) RSV (PCR) (NotDetected) Entero/Rhino (PCR) (NotDetected) 03/05/24 03/05/24 03/05/24 Range/Units 08:37 10:11 10:18 WBC (4.8-10.8) K/ul RBC (4.20-5.40) M/uL Hgb (12.0-16.0) g/dl POC Hgb (12.0-16.0) g/dl Hct (37.0-47.0) % POC Hct (37-47) % MCV (80.0-100.0) fL MCH (25.0-34.0) pg MCHC (32.0-36.0) g/dL RDW Std Deviation (36.4-46.3) fL RDW Coeff of Abel (11.5-14.5) % Plt Count (130-400) K/uL MPV (9.4-12.4) fL Immature Gran % (Auto) % Neut % (Auto) % Lymph % (Auto) % [place] % (Auto) % Eos % (Auto) % Baso % (Auto) % Neut # (Auto) (1.40-6.50) K/uL Lymph # (Auto) (1.20-3.40) K/uL [place] # (Auto) (0.11-0.59) K/uL Eos # (Auto) (0.00-0.50) K/uL Baso # (Auto) (0.00-0.20) K/uL Immature Gran # (Auto) (0.01-0.20) K/uL ABG pH (7.35-7.45) ABG pCO2 (35-46) mmHg ABG pO2 (80-95) mmHg ABG HCO3 (19-24) mmol/L ABG O2 Saturation (90-95) % ABG Base Excess (-9-1.8) mEq/L Jacob Test (Pos) Oxygen Given POC Sodium (135-144) mmol/L Sodium (136-145) mmol/L POC Potassium (3.3-5.0) mmol/L Potassium (3.5-5.1) mmol/L POC Chloride (101-112) mmol/L Chloride (98-107) mmol/L Carbon Dioxide (21-32) mmol/L POC Total CO2 (24-31) mmol/L Anion Gap (3-11) POC Anion Gap (16-25) mmol/L POC BUN (7-18) mg/dl BUN (6-23) mg/dl Creatinine (0.6-1.2) mg/dl POC Creatinine (0.6-1.3) mg/dl Est Cr Clr Drug Dosing ml/min Est GFR ( Amer) ml/min Est GFR (Non-Af Amer) ml/min BUN/Creatinine Ratio (10-20) Glucose 842 H* (70-99(Fasting)) mg/dl POC Glucose (70-99) mg/dl POC Glucose (other) (70-99) mg/dl Lactate 6.1 H* (0.4-2.0) mmol/L Calcium (8.6-10.3) mg/dl POC Ioniz Calcium Ghassan (1.12-1.32) mmol/l Phosphorus 3.6 (2.5-4.9) mg/dl Magnesium (1.7-2.4) mg/dl Total Bilirubin (0.2-1.0) mg/dl AST (13-39) U/L ALT (7-52) U/L Alkaline Phosphatase (34-104) U/L Troponin I High Sens 1914.9 H* D (0-14) pg/ml Total Protein (6.0-8.3) gm/dl Albumin (3.4-5.0) gm/dl Globulin (2.5-4.0) gm/dl Albumin/Globulin Ratio (0.9-2) Procalcitonin (0-0.5) ng/ml TSH (0.300-4.500) uIu/ml Adenovirus (PCR) Not Detected (NotDetected) B. pertussis DNA (PCR) Not Detected (NotDetected) B.parapertussis DNA PCR Not Detected (NotDetected) C. pneumoniae DNA (PCR) Not Detected (NotDetected) Coronavirus OC43 (PCR) Not Detected (NotDetected) Coronavirus HKU1 (PCR) Not Detected (NotDetected) Coronavirus 229E (PCR) Not Detected (NotDetected) SARS-CoV-2 (PCR) Not Detected (NotDetected) Coronavirus NL63 (PCR) Not Detected (NotDetected) Human Metapneumovir PCR Not Detected (NotDetected) Influenza Type A (PCR) Not Detected (NotDetected) Influenza Type B (PCR) Not Detected (NotDetected) M. pneumoniae (PCR) Not Detected (NotDetected) Parainfluenza 1 (PCR) Not Detected (NotDetected) Parainfluenza 2 (PCR) Not Detected (NotDetected) Parainfluenza 3 (PCR) Not Detected (NotDetected) Parainfluenza 4 (PCR) Not Detected (NotDetected) RSV (PCR) Not Detected (NotDetected) Entero/Rhino (PCR) Not Detected (NotDetected) 03/05/24 Range/Units 10:21 WBC (4.8-10.8) K/ul RBC (4.20-5.40) M/uL Hgb (12.0-16.0) g/dl POC Hgb (12.0-16.0) g/dl Hct (37.0-47.0) % POC Hct (37-47) % MCV (80.0-100.0) fL MCH (25.0-34.0) pg MCHC (32.0-36.0) g/dL RDW Std Deviation (36.4-46.3) fL RDW Coeff of Abel (11.5-14.5) % Plt Count (130-400) K/uL MPV (9.4-12.4) fL Immature Gran % (Auto) % Neut % (Auto) % Lymph % (Auto) % [place] % (Auto) % Eos % (Auto) % Baso % (Auto) % Neut # (Auto) (1.40-6.50) K/uL Lymph # (Auto) (1.20-3.40) K/uL [place] # (Auto) (0.11-0.59) K/uL Eos # (Auto) (0.00-0.50) K/uL Baso # (Auto) (0.00-0.20) K/uL Immature Gran # (Auto) (0.01-0.20) K/uL ABG pH (7.35-7.45) ABG pCO2 (35-46) mmHg ABG pO2 (80-95) mmHg ABG HCO3 (19-24) mmol/L ABG O2 Saturation (90-95) % ABG Base Excess (-9-1.8) mEq/L Jacob Test (Pos) Oxygen Given POC Sodium (135-144) mmol/L Sodium (136-145) mmol/L POC Potassium (3.3-5.0) mmol/L Potassium (3.5-5.1) mmol/L POC Chloride (101-112) mmol/L Chloride (98-107) mmol/L Carbon Dioxide (21-32) mmol/L POC Total CO2 (24-31) mmol/L Anion Gap (3-11) POC Anion Gap (16-25) mmol/L POC BUN (7-18) mg/dl BUN (6-23) mg/dl Creatinine (0.6-1.2) mg/dl POC Creatinine (0.6-1.3) mg/dl Est Cr Clr Drug Dosing ml/min Est GFR ( Amer) ml/min Est GFR (Non-Af Amer) ml/min BUN/Creatinine Ratio (10-20) Glucose (70-99(Fasting)) mg/dl POC Glucose > 600 H* (70-99) mg/dl POC Glucose (other) (70-99) mg/dl Lactate (0.4-2.0) mmol/L Calcium (8.6-10.3) mg/dl POC Ioniz Calcium Ghassan (1.12-1.32) mmol/l Phosphorus (2.5-4.9) mg/dl Magnesium (1.7-2.4) mg/dl Total Bilirubin (0.2-1.0) mg/dl AST (13-39) U/L ALT (7-52) U/L Alkaline Phosphatase (34-104) U/L Troponin I High Sens (0-14) pg/ml Total Protein (6.0-8.3) gm/dl Albumin (3.4-5.0) gm/dl Globulin (2.5-4.0) gm/dl Albumin/Globulin Ratio (0.9-2) Procalcitonin (0-0.5) ng/ml TSH (0.300-4.500) uIu/ml Adenovirus (PCR) (NotDetected) B. pertussis DNA (PCR) (NotDetected) B.parapertussis DNA PCR (NotDetected) C. pneumoniae DNA (PCR) (NotDetected) Coronavirus OC43 (PCR) (NotDetected) Coronavirus HKU1 (PCR) (NotDetected) Coronavirus 229E (PCR) (NotDetected) SARS-CoV-2 (PCR) (NotDetected) Coronavirus NL63 (PCR) (NotDetected) Human Metapneumovir PCR (NotDetected) Influenza Type A (PCR) (NotDetected) Influenza Type B (PCR) (NotDetected) M. pneumoniae (PCR) (NotDetected) Parainfluenza 1 (PCR) (NotDetected) Parainfluenza 2 (PCR) (NotDetected) Parainfluenza 3 (PCR) (NotDetected) Parainfluenza 4 (PCR) (NotDetected) RSV (PCR) (NotDetected) Entero/Rhino (PCR) (NotDetected) Administered Medications Heparin Sodium/Dextrose (Heparin Sodium/Dextrose) 25,000 units in 500 mls @ 21 mls/hr IV .[id number] [facility]; Protocol Stop: 04/05/24 19:29 Last Titration: 03/10/24 06:28 Dose: 1,050 units/hr, 21 mls/hr Documented By: AM Co-signed By: KELLIE Titration: 03/09/24 19:22 Dose: 1,050 units/hr, 21 mls/hr Documented By: AM Co-signed By: KELLIE(2) Admin: 03/09/24 15:46 Dose: 1,050 units/hr, 21 mls/hr Documented By: KELLIE(2) Co-signed By: RYNE Titration: 03/09/24 15:46 Dose: Infused Documented By: KELLIE(2) Co-signed By: RYNE Titration: 03/09/24 07:19 Dose: 1,050 units/hr, 21 mls/hr Documented By: KELLIE(2) Co-signed By: JULES Titration: 03/08/24 23:04 Dose: 1,050 units/hr, 21 mls/hr Documented By: JULES Co-signed By: RODNEY Admin: 03/08/24 16:18 Dose: 1,050 units/hr, 21 mls/hr Documented By: EMANUEL Co-signed By: KAYA Titration: 03/08/24 16:18 Dose: Infused Documented By: EMANUEL Co-signed By: WRS Titration: 03/08/24 14:49 Dose: 1,050 units/hr, 21 mls/hr Documented By: EMANUEL Co-signed By: JOSEA Titration: 03/08/24 07:19 Dose: 1,100 units/hr, 22 mls/hr Documented By: STEVEN Co-signed By: EMANUEL Titration: 03/07/24 19:08 Dose: 1,100 units/hr, 22 mls/hr Documented By: STEVEN Co-signed By: EMANUEL Admin: 03/07/24 17:55 Dose: 1,100 units/hr, 22 mls/hr Documented By: EMANUEL Co-signed By: CHAU Titration: 03/07/24 17:55 Dose: Infused Documented By: EMANUEL Co-signed By: CMP Titration: 03/07/24 07:12 Dose: 1,100 units/hr, 22 mls/hr Documented By: EMANUEL Co-signed By: STEVEN Admin: 03/06/24 20:27 Dose: 1,100 units/hr, 22 mls/hr Documented By: PRAMOD Co-signed By: STEVEN Ceftriaxone Sodium (Rocephin) 1,000 mg in 50 mls @ 100 mls/hr IV Q24H SUMAYA; Protocol Stop: 03/17/24 09:59 Last Infusion: 03/09/24 11:18 Dose: Infused Documented By: KELLIE(2) Admin: 03/09/24 10:48 Dose: 100 mls/hr Documented By: KELLIE(2) Infusion: 03/08/24 10:48 Dose: Infused Documented By: Admin: 03/08/24 09:59 Dose: 100 mls/hr Documented By: Infusion: 03/07/24 11:55 Dose: Infused Documented By: Admin: 03/07/24 11:13 Dose: 100 mls/hr Documented By: EMANUEL Levetiracetam 250 mg/ Sodium (Chloride) 102.5 mls @ 410 mls/hr IV Q6 SUMAYA Stop: 04/06/24 11:59 Last Infusion: 03/10/24 06:05 Dose: Infused Documented By: Admin: 03/10/24 05:45 Dose: 410 mls/hr Documented By: Infusion: 03/10/24 00:30 Dose: Infused Documented By: Admin: 03/10/24 00:09 Dose: 410 mls/hr Documented By: Infusion: 03/09/24 17:50 Dose: Infused Documented By: AKP(2) Admin: 03/09/24 17:35 Dose: 410 mls/hr Documented By: AKP(2) Infusion: 03/09/24 12:18 Dose: Infused Documented By: AKP(2) Admin: 03/09/24 12:03 Dose: 410 mls/hr Documented By: AKP(2) Infusion: 03/09/24 06:10 Dose: Infused Documented By: Admin: 03/09/24 05:51 Dose: 410 mls/hr Documented By: Infusion: 03/09/24 00:55 Dose: Infused Documented By: Admin: 03/09/24 00:00 Dose: 410 mls/hr Documented By: Infusion: 03/08/24 18:08 Dose: Infused Documented By: Admin: 03/08/24 17:41 Dose: 410 mls/hr Documented By: Infusion: 03/08/24 11:50 Dose: Infused Documented By: Admin: 03/08/24 11:35 Dose: 410 mls/hr Documented By: Infusion: 03/08/24 07:19 Dose: Infused Documented By: Admin: 03/08/24 06:14 Dose: 410 mls/hr Documented By: Infusion: 03/08/24 01:00 Dose: Infused Documented By: Admin: 03/08/24 00:42 Dose: 410 mls/hr Documented By: Infusion: 03/07/24 18:20 Dose: Infused Documented By: Admin: 03/07/24 17:54 Dose: 410 mls/hr Documented By: Infusion: 03/07/24 12:12 Dose: Infused Documented By: Admin: 03/07/24 11:49 Dose: 410 mls/hr Documented By: EMANUEL Lacosamide 150 mg/ Sodium (Chloride) 65 mls @ 130 mls/hr IV Q12H SUMAYA Stop: 04/06/24 18:59 Last Infusion: 03/09/24 19:30 Dose: Infused Documented By: Admin: 03/09/24 18:54 Dose: 130 mls/hr Documented By: AKP(2) Infusion: 03/09/24 07:19 Dose: Infused Documented By: AKP(2) Admin: 03/09/24 06:49 Dose: 130 mls/hr Documented By: Infusion: 03/08/24 20:25 Dose: Infused Documented By: Admin: 03/08/24 19:18 Dose: 130 mls/hr Documented By: Infusion: 03/08/24 08:45 Dose: Infused Documented By: Admin: 03/08/24 08:11 Dose: 130 mls/hr Documented By: Infusion: 03/07/24 20:43 Dose: Infused Documented By: Admin: 03/07/24 19:55 Dose: 130 mls/hr Documented By: STEVEN Pantoprazole Sodium 40 mg/ (Syringe) 10 mls @ 5 mls/min IV DAILY@1100 SUMAYA Stop: 04/06/24 11:59 Last Admin: 03/09/24 10:48 Dose: 5 mls/min Documented By: KELLIE(2) Admin: 03/08/24 10:00 Dose: 5 mls/min Documented By: Admin: 03/07/24 11:30 Dose: 5 mls/min Documented By: EMANUEL Insulin Aspart (Insulin Aspart Per Unit Charge) 0 units SC Q4 SUMAYA Stop: 04/06/24 19:59 Last Admin: 03/10/24 04:09 Dose: Not Given Documented By: JARED Co-signed By: KELLIE Admin: 03/09/24 23:53 Dose: 1 units Documented By: JARED Co-signed By: KELLIE Admin: 03/09/24 20:29 Dose: Not Given Documented By: JARED Co-signed By: IVANA Admin: 03/09/24 16:41 Dose: 1 units Documented By: [email or web address]) Co-signed By: RYNE Admin: 03/09/24 12:35 Dose: Not Given Documented By: KELLIE(2) Admin: 03/09/24 08:28 Dose: Not Given Documented By: KELLIE(2) Admin: 03/09/24 04:13 Dose: Not Given Documented By: Admin: 03/08/24 23:55 Dose: Not Given Documented By: Admin: 03/08/24 20:13 Dose: Not Given Documented By: Admin: 03/08/24 16:21 Dose: 1 units Documented By: EMANUEL Co-signed By: KAYA Admin: 03/08/24 11:41 Dose: 1 units Documented By: EMANUEL Co-signed By: KAYA Admin: 03/08/24 08:12 Dose: Not Given Documented By: EMANUEL Co-signed By: CHAU Admin: 03/08/24 04:42 Dose: 1 units Documented By: STEVEN Co-signed By: TAVON Admin: 03/08/24 00:49 Dose: 1 units Documented By: STEVEN Co-signed By: SG Admin: 03/07/24 20:03 Dose: Not Given Documented By: STEVEN Co-signed By: TAVON Insulin Glargine (Lantus Per Unit Charge) 0 units SC Q24H SUMAYA; Protocol Stop: 04/07/24 19:59 Last Admin: 03/09/24 20:28 Dose: 6 units Documented By: JARED Co-signed By: IVANA Discontinued Medications Amiodarone HCl/Dextrose (Amiodarone 150mg / 100ml D5w) Confirm Administered Dose 150 mg IV .STK-MED ONE Stop: 03/06/24 13:06 Last Admin: 03/06/24 13:05 Dose: 150 mg Documented By: GOSIA Co-signed By: KAYA Amiodarone HCl/Dextrose (Amiodarone 360mg / 200ml D5w) Confirm Administered Dose 360 mg IV .STK-MED ONE Stop: 03/06/24 13:16 Last Admin: 03/06/24 13:15 Dose: 360 mg Documented By: GOSIA Co-signed By: KAYA Dextrose (Dextrose 50% 50 Ml Syringe) 25 - 50 ml IV UD PRN; Protocol PRN Reason: Hypoglycemia Protocol Stop: 04/04/24 09:03 Last Admin: 03/07/24 03:10 Dose: 25 ml Documented By: Admin: 03/05/24 22:28 Dose: 25 ml Documented By: Admin: 03/05/24 17:24 Dose: 25 ml Documented By: Admin: 03/05/24 17:05 Dose: 25 ml Documented By: GOSIA Etomidate (Etomidate 2 Mg/Ml 20 Ml Vial) 20 mg IV NOW ONE Stop: 03/06/24 13:37 Last Admin: 03/06/24 13:05 Dose: 20 mg Documented By: GOSIA Furosemide (Furosemide 40 Mg/4 Ml Vial) 40 mg IV ONE ONE Stop: 03/06/24 08:34 Last Admin: 03/06/24 08:39 Dose: 40 mg Documented By: GOSIA Furosemide (Furosemide 40 Mg/4 Ml Vial) Confirm Administered Dose 40 mg IV .STK- MED ONE Stop: 03/06/24 08:36 Last Admin: 03/06/24 08:42 Dose: Not Given Documented By: GOSIA Heparin Sodium (Porcine) (Heparin Sod 5,000 Unit/0.5 Ml Vial) 5,000 units SQ BID SUMAYA Stop: 04/04/24 20:59 Last Admin: 03/06/24 11:57 Dose: Not Given Documented By: Admin: 03/05/24 21:06 Dose: 5,000 units Documented By: STEVEN Heparin Sodium/Dextrose (Heparin Iv Adult Wt-Based Standard *No* Initial Bolus Protocol) 1 each IV ONE STA; Protocol Stop: 03/06/24 19:09 Last Admin: 03/06/24 20:27 Dose: 1 each Documented By: PRAMOD Heparin Sodium/Dextrose (Heparin 22429 Unit/500 Ml D5w) Confirm Administered Dose 25,000 units IV .STK-MED ONE Stop: 03/06/24 20:05 Last Admin: 03/06/24 20:27 Dose: Not Given Documented By: PRAMOD Sodium Chloride (Nss) 2,000 mls @ 999 mls/hr IV .Q2H1M SUMAYA Stop: 03/05/24 10:15 Last Infusion: 03/05/24 13:31 Dose: Infused Documented By: Admin: 03/05/24 08:31 Dose: 999 mls/hr Documented By: NOREEN Acetaminophen (Ofirmev) 1,000 mg in 100 mls @ 400 mls/hr IV NOW STA Stop: 03/05/24 08:29 Last Infusion: 03/05/24 08:42 Dose: Infused Documented By: Admin: 03/05/24 08:27 Dose: 400 mls/hr Documented By: NOREEN Cefepime HCl (Maxipime) 2,000 mg in 20 mls @ 5 mls/min IV NOW STA; Protocol Stop: 03/05/24 08:20 Last Admin: 03/05/24 08:34 Dose: 5 mls/min Documented By: NOREEN Vancomycin HCl 1,250 mg/ (Sodium Chloride) 525 mls @ 200 mls/hr IV NOW ONE Stop: 03/05/24 10:46 Last Infusion: 03/05/24 13:31 Dose: Infused Documented By: Admin: 03/05/24 08:54 Dose: 200 mls/hr Documented By: HERIBERTO Insulin Human Regular 250 (units/ Sodium Chloride) 250 mls @ 0.3 mls/hr IV .Q24H SUMAYA; Protocol Stop: 04/04/24 09:14 Last Titration: 03/07/24 19:08 Dose: Infused Documented By: STEVEN Co-signed By: EMANUEL Titration: 03/07/24 18:41 Dose: 0.2 units/hr, 0.2 mls/hr Documented By: EMANUEL Co-signed By: CAM Titration: 03/07/24 17:36 Dose: 0.3 units/hr, 0.3 mls/hr Documented By: EMANUEL Co-signed By: CAM Titration: 03/07/24 16:30 Dose: 0.3 units/hr, 0.3 mls/hr Documented By: CMP Co-signed By: ESG(2) Admin: 03/07/24 14:25 Dose: 0.4 units/hr, 0.4 mls/hr Documented By: EMANUEL Co-signed By: CAM Titration: 03/07/24 14:25 Dose: Infused Documented By: EMANUEL Co-signed By: CAM Titration: 03/07/24 13:16 Dose: 0.4 units/hr, 0.4 mls/hr Documented By: EMANUEL Co-signed By: CAM Titration: 03/07/24 11:30 Dose: 0.5 units/hr, 0.5 mls/hr Documented By: EMANUEL Co-signed By: ESG(2) Titration: 03/07/24 10:30 Dose: 0.5 units/hr, 0.5 mls/hr Documented By: EMANUEL Co-signed By: ESG(2) Titration: 03/07/24 09:30 Dose: 0.5 units/hr, 0.5 mls/hr Documented By: EMANUEL Co-signed By: ESG(2) Titration: 03/07/24 08:30 Dose: 0.5 units/hr, 0.5 mls/hr Documented By: EMANUEL Co-signed By: ESG(2) Titration: 03/07/24 07:30 Dose: 0.6 units/hr, 0.6 mls/hr Documented By: EMANUEL Co-signed By: ESG(2) Titration: 03/07/24 07:12 Dose: 0.6 units/hr, 0.6 mls/hr Documented By: EMANUEL Co-signed By: ESG Titration: 03/07/24 06:33 Dose: 0.6 units/hr, 0.6 mls/hr Documented By: STEVEN Co-signed By: VK Titration: 03/07/24 05:30 Dose: 0.7 units/hr, 0.7 mls/hr Documented By: ESG Co-signed By: VK Titration: 03/07/24 04:44 Dose: 0.7 units/hr, 0.7 mls/hr Documented By: ESG Co-signed By: VK Titration: 03/07/24 03:40 Dose: 0.7 units/hr, 0.7 mls/hr Documented By: ESG Co-signed By: VK Titration: 03/07/24 03:31 Dose: 0.7 units/hr, 0.7 mls/hr Documented By: ESG Co-signed By: AMW Titration: 03/07/24 03:05 Dose: 0 units/hr, 0 mls/hr Documented By: ESG Co-signed By: AMW Titration: 03/07/24 02:07 Dose: 1.2 units/hr, 1.2 mls/hr Documented By: ESG Co-signed By: VK Titration: 03/07/24 01:04 Dose: 1.5 units/hr, 1.5 mls/hr Documented By: ESG Co-signed By: VK Titration: 03/07/24 00:00 Dose: 1.5 units/hr, 1.5 mls/hr Documented By: ESG Co-signed By: VK Titration: 03/06/24 23:00 Dose: 1.9 units/hr, 1.9 mls/hr Documented By: ESG Co-signed By: VK Titration: 03/06/24 22:02 Dose: 1.9 units/hr, 1.9 mls/hr Documented By: VK Co-signed By: ESG Titration: 03/06/24 21:04 Dose: 1.9 units/hr, 1.9 mls/hr Documented By: VK Co-signed By: ESG Titration: 03/06/24 20:00 Dose: 2.4 units/hr, 2.4 mls/hr Documented By: ESG Co-signed By: VK Titration: 03/06/24 19:06 Dose: 2 units/hr, 2 mls/hr Documented By: VK Co-signed By: LAF Titration: 03/06/24 18:00 Dose: 2 units/hr, 2 mls/hr Documented By: LAF Co-signed By: WRS Titration: 03/06/24 17:00 Dose: 2 units/hr, 2 mls/hr Documented By: LAF Co-signed By: WRS Titration: 03/06/24 16:00 Dose: 2 units/hr, 2 mls/hr Documented By: LAF Co-signed By: WRS Titration: 03/06/24 15:50 Dose: 2 units/hr, 2 mls/hr Documented By: LAF Co-signed By: WRS Admin: 03/06/24 11:58 Dose: Not Given Documented By: LAF Co-signed By: WRS Titration: 03/06/24 08:30 Dose: 0 units/hr, 0 mls/hr Documented By: LAF Co-signed By: WRS Titration: 03/06/24 07:08 Dose: 2 units/hr, 2 mls/hr Documented By: ESG Co-signed By: LAF Titration: 03/06/24 06:09 Dose: 2 units/hr, 2 mls/hr Documented By: ESG Co-signed By: TP Titration: 03/06/24 05:14 Dose: 1.7 units/hr, 1.7 mls/hr Documented By: ESG Co-signed By: TP Titration: 03/06/24 04:00 Dose: 1.7 units/hr, 1.7 mls/hr Documented By: ESG Co-signed By: TP Titration: 03/06/24 03:01 Dose: 1.7 units/hr, 1.7 mls/hr Documented By: ESG Co-signed By: AMW Titration: 03/06/24 02:05 Dose: 1.4 units/hr, 1.4 mls/hr Documented By: ESG Co-signed By: AMW Titration: 03/06/24 01:07 Dose: 1.4 units/hr, 1.4 mls/hr Documented By: ESG Co-signed By: AMW Titration: 03/05/24 22:45 Dose: 1.4 units/hr, 1.4 mls/hr Documented By: ESG Co-signed By: TP Titration: 03/05/24 22:00 Dose: 0 units/hr, 0 mls/hr Documented By: ESG Co-signed By: TP Titration: 03/05/24 21:03 Dose: 2.4 units/hr, 2.4 mls/hr Documented By: ESG Co-signed By: AMW Titration: 03/05/24 20:12 Dose: 3 units/hr, 3 mls/hr Documented By: ESG Co-signed By: TP Titration: 03/05/24 19:19 Dose: 3.7 units/hr, 3.7 mls/hr Documented By: ESG Co-signed By: TP Titration: 03/05/24 19:12 Dose: 3.7 units/hr, 3.7 mls/hr Documented By: ESG Co-signed By: LAF Titration: 03/05/24 15:36 Dose: 6.2 units/hr, 6.2 mls/hr Documented By: LAF Co-signed By: WRS Titration: 03/05/24 14:15 Dose: 7.8 units/hr, 7.8 mls/hr Documented By: LAF Co-signed By: WRS Titration: 03/05/24 13:00 Dose: 7.8 units/hr, 7.8 mls/hr Documented By: GOSIA Co-signed By: WRLeeroy Admin: 03/05/24 09:26 Dose: 6.5 units/hr, 6.5 mls/hr Documented By: BRENNAE Co-signed By: NOREEN Parenteral Electrolytes (Plasma-Lyte A Ph 7.4) 1,000 mls @ 999 mls/hr IV .Q1H1M ONE Stop: 03/05/24 12:00 Last Infusion: 03/05/24 13:31 Dose: Infused Documented By: Admin: 03/05/24 12:04 Dose: 999 mls/hr Documented By: GOSIA Piperacillin Sod/Tazobactam (Sod 4.5 gm/ Dextrose) 100 mls @ 25 mls/hr IV Q8H [facility]; Protocol Stop: 03/07/24 11:59 Last Infusion: 03/07/24 06:08 Dose: Infused Documented By: Infusion: 03/07/24 03:40 Dose: 25 mls/hr Documented By: Admin: 03/07/24 02:06 Dose: 25 mls/hr Documented By: Infusion: 03/06/24 22:41 Dose: Infused Documented By: Admin: 03/06/24 18:38 Dose: 25 mls/hr Documented By: Infusion: 03/06/24 16:41 Dose: Infused Documented By: Admin: 03/06/24 11:54 Dose: 25 mls/hr Documented By: Infusion: 03/06/24 06:09 Dose: Infused Documented By: Infusion: 03/06/24 05:14 Dose: 25 mls/hr Documented By: Infusion: 03/06/24 03:01 Dose: 25 mls/hr Documented By: Infusion: 03/06/24 02:05 Dose: 25 mls/hr Documented By: Admin: 03/06/24 01:41 Dose: 25 mls/hr Documented By: Infusion: 03/05/24 23:00 Dose: Infused Documented By: Infusion: 03/05/24 19:56 Dose: 25 mls/hr Documented By: Admin: 03/05/24 18:35 Dose: 25 mls/hr Documented By: LAF Acetaminophen (Ofirmev) 1,000 mg in 100 mls @ 400 mls/hr IV Q8H PRN PRN Reason: Fever Stop: 03/08/24 11:52 Last Infusion: 03/06/24 04:00 Dose: Infused Documented By: Admin: 03/06/24 03:44 Dose: 400 mls/hr Documented By: ESG Piperacillin Sod/Tazobactam (Sod 4.5 gm/ Dextrose) 100 mls @ 200 mls/hr IV ONE ONE; Protocol Stop: 03/05/24 12:29 Last Infusion: 03/05/24 13:30 Dose: Infused Documented By: Admin: 03/05/24 12:07 Dose: 200 mls/hr Documented By: LAF Lactated Ringer's (Lr) 1,000 mls @ 999 mls/hr IV .Q1H1M ONE Stop: 03/05/24 12:57 Last Infusion: 03/05/24 15:57 Dose: Infused Documented By: Admin: 03/05/24 13:00 Dose: 999 mls/hr Documented By: LAF Parenteral Electrolytes (Plasma-Lyte A Ph 7.4) 1,000 mls @ 125 mls/hr IV .Q8H SUMAYA Stop: 04/04/24 12:44 Last Infusion: 03/05/24 15:57 Dose: Infused Documented By: Admin: 03/05/24 13:01 Dose: 125 mls/hr Documented By: LAF Potassium Chloride 20 meq/ (Parenteral Electrolytes) 1,010 mls @ 125 mls/hr IV .Q8H5M SUMAYA Stop: 04/04/24 14:29 Last Infusion: 03/05/24 19:56 Dose: Infused Documented By: Admin: 03/05/24 14:43 Dose: 125 mls/hr Documented By: LAF Potassium Chloride (K Ash / Wtr) 10 meq in 100 mls @ 100 mls/hr IV Q1H SUMAYA Stop: 03/05/24 20:29 Last Infusion: 03/05/24 20:53 Dose: Infused Documented By: Admin: 03/05/24 19:56 Dose: 100 mls/hr Documented By: Infusion: 03/05/24 19:41 Dose: Infused Documented By: Admin: 03/05/24 18:41 Dose: 100 mls/hr Documented By: LAF Potassium Chloride/Dextrose/Sod Cl (D5w And 1/2nss + 20meq Kcl) 20 meq in 1,000 mls @ 125 mls/hr IV .Q8H SUMAYA Stop: 04/04/24 18:29 Last Infusion: 03/06/24 12:33 Dose: Infused Documented By: Infusion: 03/06/24 06:35 Dose: 125 mls/hr Documented By: Infusion: 03/06/24 06:09 Dose: 200 mls/hr Documented By: Infusion: 03/06/24 05:14 Dose: 200 mls/hr Documented By: Admin: 03/06/24 05:03 Dose: 200 mls/hr Documented By: Infusion: 03/06/24 05:03 Dose: Infused Documented By: Infusion: 03/06/24 04:00 Dose: 200 mls/hr Documented By: Infusion: 03/06/24 03:44 Dose: 0 mls/hr Documented By: Infusion: 03/06/24 03:01 Dose: 200 mls/hr Documented By: Infusion: 03/06/24 02:05 Dose: 200 mls/hr Documented By: Admin: 03/05/24 23:56 Dose: 200 mls/hr Documented By: Infusion: 03/05/24 23:30 Dose: Infused Documented By: Infusion: 03/05/24 23:00 Dose: 200 mls/hr Documented By: Infusion: 03/05/24 21:26 Dose: 200 mls/hr Documented By: Infusion: 03/05/24 21:10 Dose: 125 mls/hr Documented By: Infusion: 03/05/24 19:56 Dose: 200 mls/hr Documented By: Admin: 03/05/24 18:35 Dose: 200 mls/hr Documented By: GOSIA Magnesium Sulfate/Dextrose (Magnesium Sulfate / D5w) 1 gm in 100 mls @ 50 mls/hr IV Q2H SUMAYA Stop: 03/06/24 01:29 Last Infusion: 03/06/24 02:05 Dose: Infused Documented By: Admin: 03/05/24 23:30 Dose: 50 mls/hr Documented By: Infusion: 03/05/24 23:30 Dose: Infused Documented By: Infusion: 03/05/24 23:00 Dose: 50 mls/hr Documented By: Admin: 03/05/24 21:29 Dose: 50 mls/hr Documented By: STEVEN Vancomycin HCl 1,000 mg/ (Sodium Chloride) 270 mls @ 200 mls/hr IV NOW ONE Stop: 03/06/24 00:50 Last Infusion: 03/06/24 01:41 Dose: Infused Documented By: Admin: 03/05/24 23:55 Dose: 200 mls/hr Documented By: STEVEN Levetiracetam 1,000 mg/ Sodium (Chloride) 110 mls @ 440 mls/hr IV NOW STA Stop: 03/06/24 10:47 Last Infusion: 03/06/24 12:33 Dose: Infused Documented By: Admin: 03/06/24 12:09 Dose: 440 mls/hr Documented By: GOSIA Levetiracetam 500 mg/ Sodium (Chloride) 105 mls @ 420 mls/hr IV Q12H SUMAYA Stop: 04/05/24 10:29 Last Infusion: 03/06/24 12:34 Dose: Infused Documented By: Admin: 03/06/24 11:50 Dose: 420 mls/hr Documented By: GOSIA Lorazepam 2 mg/ Syringe 2 mls @ 2 mls/min IV NOW STA Stop: 03/06/24 12:16 Last Admin: 03/06/24 12:20 Dose: Not Given Documented By: GOSIA Lacosamide 200 mg/ Sodium (Chloride) 70 mls @ 140 mls/hr IV ONE ONE Stop: 03/06/24 13:14 Last Infusion: 03/06/24 16:43 Dose: Infused Documented By: Admin: 03/06/24 12:45 Dose: 140 mls/hr Documented By: GOSIA Lacosamide 100 mg/ Sodium (Chloride) 60 mls @ 120 mls/hr IV Q12H SUMAYA Stop: 04/05/24 18:59 Last Infusion: 03/07/24 07:26 Dose: Infused Documented By: Admin: 03/07/24 06:40 Dose: 120 mls/hr Documented By: Infusion: 03/06/24 20:58 Dose: Infused Documented By: Admin: 03/06/24 20:28 Dose: 120 mls/hr Documented By: PRAMOD Lorazepam 2 mg/ Syringe 2 mls @ 2 mls/min IV NOW STA Stop: 03/06/24 12:33 Last Admin: 03/06/24 12:32 Dose: 2 mls/min Documented By: GOSIA Levetiracetam 750 mg/ Sodium (Chloride) 107.5 mls @ 440 mls/hr IV Q12H SUMAYA Stop: 04/05/24 17:59 Last Infusion: 03/07/24 06:34 Dose: Infused Documented By: Admin: 03/07/24 06:15 Dose: 440 mls/hr Documented By: Infusion: 03/06/24 19:15 Dose: Infused Documented By: Admin: 03/06/24 18:05 Dose: 440 mls/hr Documented By: GOSIA Lactated Ringer's (Lr) 500 mls @ 999 mls/hr IV .Q31M ONE Stop: 03/06/24 13:30 Last Infusion: 03/06/24 16:43 Dose: Infused Documented By: Admin: 03/06/24 13:00 Dose: 999 mls/hr Documented By: GOSIA Propofol (Diprivan) 1,000 mg in 100 mls @ 0 mls/hr IV .Q0M [facility]; Protocol Stop: 03/09/24 13:44 Last Admin: 03/08/24 10:23 Dose: Not Given Documented By: Titration: 03/08/24 09:57 Dose: Infused Documented By: Titration: 03/08/24 08:45 Dose: 0 mcg/kg/min, 0 mls/hr Documented By: Titration: 03/08/24 08:15 Dose: 5 mcg/kg/min, 1.9 mls/hr Documented By: Titration: 03/08/24 07:45 Dose: 10 mcg/kg/min, 3.7 mls/hr Documented By: Titration: 03/08/24 07:30 Dose: 15 mcg/kg/min, 5.6 mls/hr Documented By: Titration: 03/08/24 07:19 Dose: 20 mcg/kg/min, 7.4 mls/hr Documented By: Admin: 03/08/24 04:44 Dose: 20 mcg/kg/min, 7.4 mls/hr Documented By: ESG Co-signed By: TP Titration: 03/08/24 04:43 Dose: Infused Documented By: Admin: 03/07/24 07:27 Dose: Not Given Documented By: Titration: 03/07/24 07:12 Dose: 0 mcg/kg/min, 0 mls/hr Documented By: ARNAUDM Co-signed By: ESG Titration: 03/07/24 04:20 Dose: 0 mcg/kg/min, 0 mls/hr Documented By: Admin: 03/06/24 22:01 Dose: 15 mcg/kg/min, 5.6 mls/hr Documented By: PRAMOD Co-signed By: ESG Titration: 03/06/24 22:01 Dose: Infused Documented By: VK Co-signed By: ESG Titration: 03/06/24 19:06 Dose: 15 mcg/kg/min, 5.6 mls/hr Documented By: VK Co-signed By: LAF Admin: 03/06/24 15:16 Dose: 20 mcg/kg/min, 7.4 mls/hr Documented By: GOSIA Co-signed By: KAYA Phenylephrine HCl (Phenylephrine/Nss) 25 mg in 250 mls @ 18.54 mls/hr IV .[id number] [facility]; Protocol Stop: 04/05/24 13:35 Last Titration: 03/08/24 09:58 Dose: Infused Documented By: EMANUEL Co-signed By: MEHayley Admin: 03/08/24 07:19 Dose: Not Given Documented By: Titration: 03/07/24 09:34 Dose: 0 mcg/kg/min, 0 mls/hr Documented By: EMANUEL Co-signed By: CAM Titration: 03/07/24 08:19 Dose: 0.3 mcg/kg/min, 11.1 mls/hr Documented By: EMANUEL Co-signed By: CAM Admin: 03/07/24 08:07 Dose: 0.5 mcg/kg/min, 18.5 mls/hr Documented By: EMANUEL Co-signed By: CAM Titration: 03/07/24 08:07 Dose: Infused Documented By: EMANUEL Co-signed By: CAM Titration: 03/07/24 07:12 Dose: 0.5 mcg/kg/min, 18.5 mls/hr Documented By: EMANUEL Co-signed By: ESG Titration: 03/07/24 02:07 Dose: 0.7 mcg/kg/min, 26 mls/hr Documented By: ESG Co-signed By: VK Titration: 03/06/24 22:49 Dose: 0.5 mcg/kg/min, 18.5 mls/hr Documented By: ESG Co-signed By: VK Admin: 03/06/24 22:39 Dose: 0.3 mcg/kg/min, 11.1 mls/hr Documented By: ESG Co-signed By: VK Titration: 03/06/24 22:39 Dose: Infused Documented By: ESG Co-signed By: VK Titration: 03/06/24 21:45 Dose: 0.5 mcg/kg/min, 18.5 mls/hr Documented By: ESG Co-signed By: VK Titration: 03/06/24 20:34 Dose: 0.3 mcg/kg/min, 11.1 mls/hr Documented By: ESG Co-signed By: VK Titration: 03/06/24 19:06 Dose: 0.5 mcg/kg/min, 18.5 mls/hr Documented By: VK Co-signed By: LAF Admin: 03/06/24 15:16 Dose: 0.5 mcg/kg/min, 18.5 mls/hr Documented By: LAF Co-signed By: KAYA Amiodarone HCl/Dextrose (Nexterone / D5w) 150 mg in 100 mls @ 600 mls/hr IV NOW STA Stop: 03/06/24 13:45 Last Admin: 03/06/24 15:15 Dose: Not Given Documented By: GOSIA Amiodarone HCl/Dextrose (Nexterone / D5w) 360 mg in 200 mls @ 33.333 mls/hr IV ONE ONE Stop: 03/06/24 19:45 Last Infusion: 03/06/24 16:00 Dose: 0 mg/min, 0 mls/hr Documented By: GOSIA Co-signed By: STEVEN Admin: 03/06/24 15:17 Dose: 0.5 mg/min, 16.7 mls/hr Documented By: GOSIA Co-signed By: KAYA Amiodarone HCl/Dextrose (Nexterone / D5w) 360 mg in 200 mls @ 16.667 mls/hr IV .Q12H SUMAYA Stop: 04/05/24 19:44 Last Admin: 03/07/24 20:00 Dose: Not Given Documented By: Admin: 03/07/24 08:09 Dose: Not Given Documented By: Admin: 03/06/24 23:35 Dose: Not Given Documented By: PRAMOD Calcium Gluconate () 1,000 mg in 60 mls @ 240 mls/hr IV NOW STA Stop: 03/06/24 15:17 Last Infusion: 03/06/24 16:43 Dose: Infused Documented By: Admin: 03/06/24 15:23 Dose: 240 mls/hr Documented By: GOSIA Calcium Gluconate () 1,000 mg in 60 mls @ 240 mls/hr IV Q15M SUMAYA Stop: 03/07/24 09:14 Last Infusion: 03/07/24 10:39 Dose: Infused Documented By: Admin: 03/07/24 10:04 Dose: 240 mls/hr Documented By: Infusion: 03/07/24 09:57 Dose: Infused Documented By: Admin: 03/07/24 09:42 Dose: 240 mls/hr Documented By: EMANUEL Potassium Chloride (K Ash / Wtr) 10 meq in 100 mls @ 100 mls/hr IV Q1H SUMAYA Stop: 03/07/24 11:44 Last Infusion: 03/07/24 12:47 Dose: Infused Documented By: Admin: 03/07/24 11:48 Dose: 100 mls/hr Documented By: Infusion: 03/07/24 11:48 Dose: Infused Documented By: Admin: 03/07/24 11:12 Dose: 100 mls/hr Documented By: Infusion: 03/07/24 10:45 Dose: Infused Documented By: Admin: 03/07/24 09:45 Dose: 100 mls/hr Documented By: EMANUEL Lactated Ringer's (Lr) 1,000 mls @ 999 mls/hr IV .Q1H1M ONE; Protocol Stop: 03/07/24 09:39 Last Infusion: 03/07/24 10:40 Dose: Infused Documented By: Admin: 03/07/24 09:24 Dose: 999 mls/hr Documented By: EMANUEL Potassium Chloride (K Ash / Wtr) 10 meq in 100 mls @ 100 mls/hr IV Q1H SUMAYA Stop: 03/08/24 08:29 Last Infusion: 03/08/24 10:22 Dose: Infused Documented By: Admin: 03/08/24 09:14 Dose: 100 mls/hr Documented By: Infusion: 03/08/24 09:10 Dose: Infused Documented By: Admin: 03/08/24 08:10 Dose: 100 mls/hr Documented By: EMANUEL Potassium Chloride (K Ash / Wtr) 10 meq in 100 mls @ 100 mls/hr IV Q1H SUMAYA Stop: 03/09/24 11:59 Last Infusion: 03/09/24 13:02 Dose: Infused Documented By: KELLIE(2) Admin: 03/09/24 12:02 Dose: 100 mls/hr Documented By: KELLIE(2) Infusion: 03/09/24 11:48 Dose: Infused Documented By: KELLIE(2) Admin: 03/09/24 10:48 Dose: 100 mls/hr Documented By: BESSP(2) Infusion: 03/09/24 10:48 Dose: Infused Documented By: KELLIE(2) Admin: 03/09/24 09:52 Dose: 100 mls/hr Documented By: AKP(2) Insulin Aspart (Insulin Aspart Per Unit Charge) 0 units SC ACHS SUMAYA Stop: 04/04/24 11:29 Last Admin: 03/07/24 17:37 Dose: Not Given Documented By: EMANUEL Co-signed By: CHETNA Admin: 03/07/24 11:49 Dose: Not Given Documented By: EMANUEL Co-signed By: CHETNA Admin: 03/07/24 08:08 Dose: Not Given Documented By: EMANUEL Co-signed By: CHETNA Admin: 03/06/24 20:28 Dose: Not Given Documented By: PRAMOD Co-signed By: STEVEN Admin: 03/06/24 18:17 Dose: Not Given Documented By: GOSIA Co-signed By: KAYA Admin: 03/06/24 14:02 Dose: Not Given Documented By: GOSIA Co-signed By: KAYA Admin: 03/06/24 11:58 Dose: Not Given Documented By: GOSIA Co-signed By: WRLeeroy Admin: 03/05/24 21:04 Dose: Not Given Documented By: STEVEN Co-signed By: TUCKER Admin: 03/05/24 15:45 Dose: Not Given Documented By: Admin: 03/05/24 12:32 Dose: Not Given Documented By: LAF Insulin Glargine (Lantus Per Unit Charge) 6 units SC NOW ONE Stop: 03/07/24 19:16 Last Admin: 03/07/24 20:00 Dose: 6 units Documented By: STEVEN Co-signed By: TAVON Insulin Glargine (Lantus Per Unit Charge) 6 units SC Q24H [facility] Stop: 04/07/24 19:59 Last Admin: 03/08/24 20:17 Dose: 6 units Documented By: JULES Co-signed By: KELLIE Insulin Human Regular (Novolin-R Bolus From Bag) 6 units IV ONE ONE Stop: 03/05/24 09:31 Last Admin: 03/05/24 09:28 Dose: 6 units Documented By: HERIBERTO Co-signed By: NOREEN Lorazepam (Lorazepam 2 Mg/1 Ml Vial) Confirm Administered Dose 2 mg .ROUTE .STK- MED ONE Stop: 03/06/24 12:15 Last Admin: 03/06/24 12:20 Dose: 2 mg Documented By: GOSIA Metoprolol Tartrate (Metoprolol Tartrate 1 Mg/Ml Vial) Confirm Administered Dose 5 mg IV .STK-MED ONE Stop: 03/06/24 12:48 Last Admin: 03/06/24 12:57 Dose: Not Given Documented By: GOSIA Metoprolol Tartrate (Metoprolol Tartrate 1 Mg/Ml Vial) 2.5 mg IV NOW STA Stop: 03/06/24 12:51 Last Admin: 03/06/24 12:56 Dose: 2.5 mg Documented By: GOSIA Larson (Hhs Goal Range 250-350 Mg/Dl) 1 each N/A ONE ONE Stop: 03/05/24 09:05 Last Admin: 03/05/24 09:36 Dose: Not Given Documented By: HERIBERTO Larson (Stat Iv Infusion Titration Per Protocol) 1 each N/A NOW STA Stop: 03/05/24 09:05 Last Admin: 03/05/24 09:36 Dose: Not Given Documented By: HERIBERTO Larson (Pending D5 1/2ns+20meq Kcl Ivf) 1 each N/A Q2H [facility] Stop: 04/04/24 10:44 Last Admin: 03/05/24 17:25 Dose: Not Given Documented By: Admin: 03/05/24 17:25 Dose: Not Given Documented By: Admin: 03/05/24 17:25 Dose: Not Given Documented By: Admin: 03/05/24 15:46 Dose: Not Given Documented By: GOSIA Larson (Dka Goal Range 150-250 Mg/Dl) 1 each N/A ONE ONE Stop: 03/05/24 10:45 Last Admin: 03/05/24 13:00 Dose: 1 each Documented By: GOSIA Larson (Rapid Sequence Induction Bag) Confirm Administered Dose 1 each N/A .STK-MED ONE Stop: 03/06/24 13:27 Last Admin: 03/06/24 13:26 Dose: 1 each Documented By: GOSIA Ondansetron HCl (Ondansetron Inj 2 Mg/Ml 2 Ml Vial) 4 mg IV NOW STA Stop: 03/05/24 08:14 Last Admin: 03/05/24 08:26 Dose: 4 mg Documented By: NOREEN Phenylephrine HCl (Phenylephrine Hcl 25 Mg/250 Ml Nss) Confirm Administered Dose 25 mg IV .STK-MED ONE Stop: 03/06/24 13:06 Last Admin: 03/06/24 15:14 Dose: 25 mg Documented By: GOSIA Co-signed By: S Imaging Data Radiologist's Impression: Chest X-Ray 03/05/24 08:13 SINGLE VIEW CHEST CLINICAL HISTORY: Generalized weakness. FINDINGS: An AP, portable, supine chest radiograph is compared to study dated 07/30/2023. The cardiomediastinal silhouette is top normal for projection. Chronic interstitial thickening is similar to previous. No airspace consolidation or large pleural effusion is identified. No pneumothorax is seen. The skeletal structures are osteopenic. The bony thorax is grossly intact. Degenerative change is noted in the shoulders. Calcific tendinopathy is seen on the left. IMPRESSION: No acute cardiopulmonary abnormality is identified. ACT 112: Negative or not required by law. Electronically signed by: Pola Ayala M.D. 03/05/2024 8:[address] 03/05/24 08:13 CT SCAN OF THE BRAIN WITHOUT IV CONTRAST CLINICAL HISTORY: Change in mental status. Unresponsive. COMPARISON STUDY: CT of the brain dated 07/30/2023. TECHNIQUE: Unenhanced axial CT scan of the brain is performed from the vertex to the skull base. A dose lowering technique was utilized adhering to the principles of ALARA. CT DOSE: 547.75 mGy.cm FINDINGS: Brain parenchyma: There is age-related involutional change noting mild subcortical and periventricular microangiopathic disease. There is no hemorrhage, mass effect, or evidence of acute territorial ischemia by CT criteria. Diamond-white matter differentiation is preserved. No extra-axial fluid collection is seen. Ventricles, sulci, cisterns: Prominent secondary to involutional change. Intracranial vasculature: There is atherosclerotic calcification of the cavernous carotid and vertebral arteries. Calvarium: Unremarkable. Sinuses and mastoids: The visualized paranasal sinuses are clear. The mastoid air cells are well pneumatized. Orbits: The bony orbits are grossly intact. IMPRESSION: There is no hemorrhage, mass effect, or evidence of acute territorial ischemia by CT criteria. ACT 112: Negative or not required by law. Electronically signed by: Pola Ayala M.D. 03/05/2024 8:58 AM Discharge Plan Visit Data Chief Complaint: Unresponsive ED Provider: Paola Waters Discharge Problem: Type 2 diabetes mellitus with hyperosmolar hyperglycemic state (HHS), Sepsis, Encephalopathy, Acute UTI Patient Disposition: Admitted As Inpatient Discharge Instructions Interventions: ED Discharge Assessment Last Done: 03/05/24 11:15 Discharge Problem: Sepsis Qualifiers: Sepsis type: sepsis due to unspecified organism Sepsis acute organ dysfunction status: with acute organ dysfunction Severe sepsis acute organ dysfunction type: encephalopathy Severe sepsis shock status: without septic shock Qualified Code(s): A41.9 - Sepsis, unspecified organism; R65.20 - Severe sepsis without septic shock; G93.41 - Metabolic encephalopathy
[2024-03-05 12:52] LABS: Acetaminophen 9 ug/ml (10-30); Salicylate < 3.0 mg/dl (3.0-30)
[2024-03-05] MEDS: LACTATED RINGER'S 1,000 ML IV ONE (13:00)
[2024-03-05] MEDS: DKA GOAL RANGE 150-250 mg/dl ONE (13:00)
[2024-03-05] MEDS: PLASMA-LYTE A 1,000 ML IV SCH (13:01)
[2024-03-05 13:02] LABS: BUN Creatinine Ratio 17.3 (10-20); Creatinine Clr Calc Pharmacy 28.5 ml/min; Est GFR (African American) 32.3 ml/min; Est GFR (Non-African American) 27.9 ml/min; Magnesium 1.7 mg/dl (1.7-2.4); Phosphorus 2.8 mg/dl (2.5-4.9); Potassium 4.4 mmol/L (3.5-5.1); Troponin I High Sensitivity 2137.3 pg/ml (0-14)
[2024-03-05 13:05] LABS: Amphetamines+Metham, Urine Neg (Neg); Barbiturates, Urine Neg (Neg); Benzodiazepine, Urine Neg (Neg); Cocaine, Urine Neg (Neg); MDMA (Ecstacy), Urine Neg (Neg); Marijuana, Urine Neg (Neg); Methadone, Urine Neg (Neg); Opiate, Urine Neg (Neg); Phencyclidine, Urine Neg (Neg)
[2024-03-05 13:38] LABS: Estimated Average Glucose 410 mg/dl; Hemoglobin A1C 15.9 % (4.5-5.6)
[2024-03-05 13:50] LABS: Calcium 8.7 mg/dl (8.6-10.3)
[2024-03-05] MEDS: POTASSIUM CHLORIDE 20 MEQ in PLASMA-LYTE A 1,000 ML IV SCH (14:43)
--- NOTE | 2024-03-05 14:48 | CT Scan Report ---
CT SCAN OF THE ABDOMEN AND PELVIS WITHOUT IV CONTRAST CLINICAL HISTORY: Sepsis. Unresponsive. COMPARISON STUDY: Abdominal ultrasound dated 01/22/2007. TECHNIQUE: CT scan of the abdomen and pelvis is performed from the lung bases to the proximal femora. Images are reviewed in the axial, sagittal, and coronal planes. IV contrast was not administered for this examination. Note that the examination is significantly suboptimal without oral and IV contrast . The examination is also degraded by motion artifact. A dose lowering technique was utilized adherin g to the principles of ALARA. CT DOSE: 795.18 mGy.cm FINDINGS: Lung bases: The heart is normal in size and without pericardial effusion. The coronary arteries are d ensely calcified. There is diffusely diminished attenuation of the cardiac blood pool as compared to the myocardium suggesting anemia. The lung bases are clear. Liver: The unenhanced liver is normal in size, contour, and attenuation. There is no intrahepatic rony iary ductal dilatation. Gallbladder: Unremarkable. Spleen: Normal in size and attenuation. Pancreas: Unremarkable. Adrenal glands: Unremarkable. Kidneys: The kidneys appear mildly edematous. No hydronephrosis is seen. Urothelial thickening is sug gested in the renal pelvis bilaterally and involving both ureters, with perinephric and periureteric inflammation. No renal calculi are identified. There is no evidence of contour deforming renal mass l esion. Abdominal vasculature: The abdominal aorta is normal in course and caliber. Bowel: There is rectosigmoid fecal retention and mild constipation. No bowel obstruction is seen. The appendix is well-visualized and normal. Peritoneum: There is a small amount of pelvic ascites. No intraperitoneal free air is seen. There is a fat-containing umbilical hernia. Lymphadenopathy: None. Pelvic viscera: The bladder is partially decompressed around a Amado catheter. The bladder wall is th ickened with pericystic inflammation. There is additional gas, as well as probable gas within the eric dder wall. This suggests emphysematous cystitis. The uterus is surgically absent. No adnexal lesion i s seen. Skeletal structures: The skeletal structures are osteopenic. There is moderate lumbar sacral spondylo sis. Sclerotic change is noted in the sacroiliac joints, right greater than left. No lytic or blastic lesions are seen. IMPRESSION: 1. Findings suggest emphysematous cystitis. Correlate with clinical findings and urinalysis. 2. The kidneys appear edematous. Additionally, urothelial thickening is seen within the renal pelvis bilaterally and involving both ureters with surrounding infiltration. Correlate with clinical finding s and urinalysis or evidence of ascending urinary tract infection. 3. Small volume pelvic ascites. 4. Additional findings as above. ACT 112: Negative or not required by law. Electronically signed by: Pola Ayala M.D. 03/05/2024 2:46 PM
[2024-03-05] MEDS: PENDING D5 1/2NS+20mEq KCL IVF SCH (15:46)
[2024-03-05 16:16] LABS: Base Excess VBG -3.8 mEq/L; HCO3 VBG 22 mmol/L; Oxygen Saturation VBG < 60.0 %; PCO2 VBG 39 mmHg (38-50); PO2 VBG < 20 mmHg; pH VBG 7.35 (7.36-7.41)
[2024-03-05 16:38] LABS: BUN Creatinine Ratio 18.1 (10-20); Calcium 8.3 mg/dl (8.6-10.3); Creatinine Clr Calc Pharmacy 31.8 ml/min; Est GFR (African American) 36.8 ml/min; Est GFR (Non-African American) 31.8 ml/min; Magnesium 1.7 mg/dl (1.7-2.4); Phosphorus 2.8 mg/dl (2.5-4.9); Potassium 3.5 mmol/L (3.5-5.1)
[2024-03-05 16:48] LABS: Troponin I High Sensitivity 2625.9 pg/ml (0-14)
--- NOTE | 2024-03-05 16:56 | XCELERA ---
[id number]
[2024-03-05] MEDS: DEXTROSE 50% 50 ML SYRINGE IV PRN (17:05)
[2024-03-05] MEDS: PIPERACILLIN/TAZOBACTAM 4.5 GM in DEXTROSE 5% MINI-B 100 ML IV SCH (18:35)
[2024-03-05] MEDS: D5W AND 1/2NSS + 20MEQ KCL 20 MEQ/1,000 ML BAG IV SCH (18:35)
[2024-03-05] MEDS: POTASSIUM CHLORIDE / WTR 10 MEQ/100 ML PLCT IV SCH (18:41)
[2024-03-05 20:14] LABS: Base Excess VBG -4.1 mEq/L; HCO3 VBG 22 mmol/L; Oxygen Saturation VBG < 60.0 %; PCO2 VBG 41 mmHg (38-50); PO2 VBG < 20 mmHg; pH VBG 7.33 (7.36-7.41)
[2024-03-05 20:49] LABS: BUN Creatinine Ratio 20.7 (10-20); Calcium 8.2 mg/dl (8.6-10.3); Creatinine Clr Calc Pharmacy 32.2 ml/min; Est GFR (African American) 37.4 ml/min; Est GFR (Non-African American) 32.3 ml/min; Magnesium 1.8 mg/dl (1.7-2.4); Phosphorus 2.8 mg/dl (2.5-4.9); Potassium 4.7 mmol/L (3.5-5.1)
[2024-03-05] MEDS: HEPARIN SOD 5,000 UNIT/0.5 ML VIAL SQ SCH (21:06)
[2024-03-05] MEDS: MAGNESIUM SULFATE / D5W 1 GM/100 ML BAG IV SCH (21:29)
[2024-03-05] MEDS: VANCOMYCIN HCL 1,000 MG in SODIUM CHLORIDE 0.9% 250 ML IV ONE (23:55)
[2024-03-06 00:33] LABS: HCO3 VBG 21 mmol/L; Oxygen Saturation VBG < 60.0 %; PCO2 VBG 37 mmHg (38-50); PO2 VBG < 20 mmHg; pH VBG 7.36 (7.36-7.41)
[2024-03-06 00:56] LABS: BUN Creatinine Ratio 22.1 (10-20); Calcium 8.1 mg/dl (8.6-10.3); Creatinine Clr Calc Pharmacy 34.3 ml/min; Est GFR (African American) 40.3 ml/min; Est GFR (Non-African American) 34.8 ml/min; Magnesium 2.3 mg/dl (1.7-2.4); Phosphorus 2.4 mg/dl (2.5-4.9); Potassium 4.5 mmol/L (3.5-5.1)
[2024-03-06 01:05] LABS: Troponin I High Sensitivity 2095.1 pg/ml (0-14)
[2024-03-06] MEDS: ACETAMINOPHEN 1,000 MG/100 ML VIAL IV PRN (03:44)
[2024-03-06 04:03] LABS: Base Excess VBG -3.4 mEq/L; HCO3 VBG 21 mmol/L; Oxygen Saturation VBG < 60.0 %; PCO2 VBG 37 mmHg (38-50); PO2 VBG < 20 mmHg; pH VBG 7.37 (7.36-7.41)
[2024-03-06 04:34] LABS: BUN Creatinine Ratio 21.2 (10-20); Calcium 7.7 mg/dl (8.6-10.3); Creatinine Clr Calc Pharmacy 33.9 ml/min; Est GFR (African American) 39.7 ml/min; Est GFR (Non-African American) 34.3 ml/min; Magnesium 2.2 mg/dl (1.7-2.4); Phosphorus 2.3 mg/dl (2.5-4.9); Potassium 4.9 mmol/L (3.5-5.1); Troponin I High Sensitivity 2025.6 pg/ml (0-14)
[2024-03-06] MEDS: FUROSEMIDE 40 MG/4 ML VIAL IV ONE ×2 (08:39→08:42)
[2024-03-06 09:13] LABS: iSTAT Allen Test Pass; iSTAT Art Bld Gas pCO2 Correct 25 mmHg (35-46); iSTAT Art Bld Gas pH Corrected 7.432 (7.35-7.45); iSTAT Arterial Blood Gas HCO3 17 meg/L (19-24); iSTAT Arterial Blood Gas pCO2 25 mmHg (35-46); iSTAT Arterial Blood Gas pH 7.44 (7.35-7.45); iSTAT Arterial Blood Gas pO2 65 mmHg (80-95); iSTAT Arterial Blood Gas pO2 C 68; iSTAT Carbon Dioxide 18 mmol/L (24-31); iSTAT Hematocrit 26 % (37-47); iSTAT Hemoglobin 8.8 g/dl (12.0-16.0); iSTAT Potassium 4.2 mmol/L (3.3-5.0); iSTAT Site R Radial; iSTAT Sodium 134 mmol/L (135-144)
[2024-03-06] MEDS ORDERED: LANTUS PER UNIT CHARGE SC ONE (09:30)
--- NOTE | 2024-03-06 09:44 | CT Scan Report ---
HEAD CT NONCONTRAST CT DOSE: HISTORY: Change in mental status. possible stroke TECHNIQUE: Multiaxial CT images of the head were performed without the use of intravenous contrast. A utomated exposure control was utilized for this study. A dose lowering technique was utilized adheri ng to the principles of ALARA. Comparison: Head CT 03/05/2024. Findings: The paranasal sinuses and mastoid air cells are clear. The calvarium and skull base are int act. The ventricles and sulci are within normal limits. There is no mass, hematoma, midline shift, or acute infarct. Impression: No acute intracranial abnormality. ACT 112: Negative or not required by law. Electronically signed by: Cliff Christine M.D. 03/06/2024 9:42 AM
--- NOTE | 2024-03-06 09:49 | CT Scan Report ---
CT chest diagnostic wo con CT DOSE: 916.6 mGy.cm HISTORY: hypoxia TECHNIQUE: Multiaxial CT images of the chest were performed without contrast. A dose lowering techni que was utilized adhering to the principles of ALARA. COMPARISON: Abdomen and pelvis CT 03/05/2024. FINDINGS: Respiratory motion artifact results in suboptimal evaluation. The central airways are paten t. No pneumothorax. Interlobular septal thickening with a few scattered patchy airspace opacities mos t pronounced within the right upper lobe. This likely represents moderate pulmonary edema. There is a 4 mm nodule within the right upper lobe on image 118. Interval development of small bilateral pleura l effusions most pronounced on the right. Associated consolidation within the lower lobes posteriorly favors compressive atelectasis from the pleural effusions. A superimposed pneumonia would be difficu lt to exclude by imaging. No acute fractures identified within the chest. Limited views of the upper abdomen demonstrate a normal liver, spleen, adrenal glands. There is perinephric edema again noted. T he heart is normal in size. No pericardial effusion. Normal esophagus. The thyroid gland is unremarka ble. There is mild to moderate body wall edema. No mediastinal or hilar lymphadenopathy. Normal calib er thoracic aorta. IMPRESSION: 1. Interval development of moderate pulmonary edema and small bilateral pleural effusions. 2. Consolidation within the lungs posteriorly favor compressive atelectasis from the pleural effusion s. A superimposed pneumonia would be difficult to exclude. 3. A 4 mm indeterminate pulmonary nodule within the right upper lobe. ACT 112: Negative or not required by law. Electronically signed by: Cliff Christine M.D. 03/06/2024 9:47 AM
--- NOTE | 2024-03-06 10:01 | Critical Care Progress Note ---
Date of Service March 06, 2024 Assessment & Plan (1) Hyperosmolar hyperglycemic state (HHS): (2) Lactic acidosis: (3) Complicated UTI (urinary tract infection): (4) Severe sepsis: (5) Elevated troponin: (6) ONEIL (acute kidney injury): (7) Acute metabolic encephalopathy: (8) Pulmonary edema: Plan 68-year-old female with a history of medical noncompliance, poorly controlled diabetes mellitus, hypertension and right bundle branch block who presented with altered mental status and severe HHS/DKA. Patient today with significant encephalopathy and minimal responsiveness. Protecting her airway presently. CT head ordered this morning without acute findings. Will order an MRI of the brain and neurology consult. 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 Patient also may have encephalopathy related to sepsis. UA growing 2 different gram-negative species. Will continue Zosyn. Will maintain glucose levels around 300 given her A1c level of 16. Urine drug screen, acetaminophen level and salicylate level were unremarkable. Echo results noted without significant LV dysfunction. Moderate mitral regurgitation was noted. ONEIL and acidosis is resolving. Ammonia level negative. Lipase level unremarkable. CK mildly elevated on admission. Fever curve trending down. Troponin was also elevated likely due to demand ischemia. CODE STATUS at this time DNR/DNI per family discussion including . Plan of care discussed with bedside nursing and ICU pharmacist. If patient's oxygenation and glycemic indices remain stable, can likely downgrade to PCU status. Admission and Anticipated Discharge Date Admission Date: March 05, 2024 Subjective Patient seen and examined. Remains severely encephalopathic and minimally responsive to commands. Occasionally moans and groans to painful stimuli. Leftward predominant gaze. Stat CT head and chest ordered today. Stat CT head negative for acute findings. Stat CT chest with evidence of pulmonary edema. Urine output adequate. Given 40 mg IV Lasix this morning due to new supplemental oxygen requirement. Review of Systems Review of Systems: Unobtainable due to cognitive status Physical Exam Physical Exam: Constitutional: Patient appears to be of their stated age. Patient in moderate distress Eyes: Pupils are equal round and reactive to light. Conjunctivae are normal. Anicteric sclera. Ears nose, mouth and throat: Mallampati class 2. Normal posterior oropharynx. Uvula is midline. Neck: Trachea is midline. Visual inspection is normal. Respiratory: Rhonchorous bilaterally. Mildly tachypneic. Cardiovascular: Regular rate and rhythm. No murmurs. No edema. Gastrointestinal: Normal bowel sounds, soft, nontender and nondistended. No hepatosplenomegaly noted. Musculoskeletal: No cyanosis. Patient is able to move all extremities. Strength is 5 out of 5 in the upper and lower extremities. Skin: No rashes, warm dry and intact. Neurologic: Left lower gaze preference with flaccidness noted of all extremities and in particular left upper extremity. Psychiatric: Unable to assess due to encephalopathy. Results & Data Results & Data Vital Signs (Past 12 Hours) Vital Signs Temp Pulse Resp BP Pulse Ox O2 Del Method O2 Flow Rate 03/06/24 09:00 37.6 C H 100 H 27 H 96 Oxymask 2 03/06/24 08:32 37.7 C H 100 H 23 94 Oxymask 2 03/06/24 08:01 37.7 C H 100 H 23 95 Oxymask 2 03/06/24 08:01 145/101 H 03/06/24 08:00 37.7 C H 101 H 145/101 H 95 Oxymask 2 03/06/24 07:30 37.0 C 102 H 23 94 Oxymask 2 03/06/24 07:28 Oxymask 2 03/06/24 07:15 37.3 C 101 H 26 H 94 03/06/24 07:06 101 H 03/06/24 07:00 37.5 C 99 H 23 94 03/06/24 06:00 37 C 92 H 21 128/89 94 Oxymask 2 03/06/24 05:00 37.1 C 98 H 24 159/120 H 93 Oxymask 2 03/06/24 04:00 37.8 C H 102 H 21 151/115 H 93 Oxymask 2 03/06/24 03:00 37.2 C 101 H 23 130/103 H 92 Oxymask 2 03/06/24 02:00 37.2 C 102 H 18 163/91 H 93 Oxymask 2 03/06/24 00:00 37.6 C H 102 H 24 152/91 H 93 Room Air 03/06/24 00:00 112 H 03/05/24 22:00 37.6 C H 03/05/24 22:00 37.6 C H 112 H 24 139/90 93 Room Air Coding Level of Care Code 56619 SUB INP/OBS CARE 3/50MIN Diagnoses Hyperosmolar hyperglycemic state (HHS) E11.00 Lactic acidosis E87.20 Complicated UTI (urinary tract infection) N39.0 Severe sepsis A41.9; R65.20 Elevated troponin R79.89 ONEIL (acute kidney injury) N17.9 Acute metabolic encephalopathy G93.41 Pulmonary edema J81.1
[2024-03-06] MEDS ORDERED: ETOMIDATE 2 MG/ML 20 ML VIAL IV ONE (10:40)
--- NOTE | 2024-03-06 10:44 | Neurology Consultation ---
Date of Consultation March 06, 2024 Assessment & Plan (1) Hyperosmolar hyperglycemic state (HHS): (2) Severe sepsis: History of Present Illness Attending Physician: Davian Mariano History of Present Illness pt this morning nonresponsive. brief opening eyes with stimulation. pt with left gaze deviation and nystagmus. no abnormal movements. per ICU staff, pt seems to be more obtunded and not responding compare to yesterday. pt is DNR/DNI. repeat CT head no obvious lesions. pending mri. admission HPI: 68-year-old female with a history of medical noncompliance, poorly controlled diabetes mellitus, hypertension and right bundle branch block who presented with altered mental status and severe HHS/DKA. Patient today with significant encephalopathy and minimal responsiveness. Protecting her airway presently. CT head ordered this morning without acute findings. Will order an MRI of the brain and neurology consult. 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 Patient also may have encephalopathy related to sepsis. UA growing 2 different gram-negative species. Will continue Zosyn. Will maintain glucose levels around 300 given her A1c level of 16. Urine drug screen, acetaminophen level and salicylate level were unremarkable. Echo results noted without significant LV dysfunction. Moderate mitral regurgitation was noted. ONEIL and acidosis is resolving. Ammonia level negative. Lipase level unremarkable. CK mildly elevated on admission. Fever curve trending down. Troponin was also elevated likely due to demand ischemia. CODE STATUS at this time DNR/DNI per family discussion including . Plan of care discussed with bedside nursing and ICU pharmacist. If patient's oxygenation and glycemic indices remain stable, can likely downgrade to PCU status. Allergies Allergy/AdvReac Type Severity Reaction Status Date / Time No Known Allergies Allergy Verified 09/29/23 08:46 Home Medications Medication Instructions Recorded Confirmed Type ascorbic acid (vitamin C) 250 mg 250 mg PO DAILY 12/14/19 03/05/24 History tablet OneTouch Verio test strips (blood #100 ea 05/28/23 09/29/23 Rx sugar diagnostic) buspirone 5 mg tablet 5 mg PO TID #90 tabs 05/28/23 03/05/24 Rx lancets 33 gauge (OneTouch Delica #100 ea 05/28/23 09/29/23 Rx Plus Lancet) pen needle, diabetic 32 gauge x #100 ea 05/28/23 03/05/24 Rx 5/32" (BD Ultra-Fine Snow Pen Needle) rosuvastatin 20 mg tablet (Crestor) 20 mg PO DAILY #30 tabs 06/25/23 03/05/24 Rx clotrimazole 1 % topical cream 1 applic topical BID #30 grams 07/30/23 03/05/24 Rx (Lotrimin AF (clotrimazole)) gabapentin 100 mg capsule 100 mg PO TID #90 caps 07/30/23 03/05/24 Rx metformin 500 mg tablet 500 mg PO BIDWMEAL 07/30/23 03/05/24 History sertraline 50 mg tablet 50 mg PO DAILY #30 tabs 08/13/23 03/05/24 Rx losartan 50 mg tablet 50 mg PO DAILY #90 tabs 09/18/23 03/05/24 Rx furosemide 20 mg tablet 0 mg PO DAILY 03/05/24 03/05/24 History insulin degludec 100 unit/mL (3 0 unit subcut DAILY 03/05/24 03/05/24 History mL) subcutaneous pen (Tresiba FlexTouch U-100 insulin) tirzepatide 2.5 mg/0.5 mL 0 mg subcut WK 03/05/24 03/05/24 History subcutaneous pen injector (Mounjaro) Patient History Medical History (Updated 03/06/24 @ 09:56 by Elton Lacey MD) Pulmonary edema Hyperosmolar hyperglycemic state (HHS) Acute metabolic encephalopathy Severe sepsis Complicated UTI (urinary tract infection) Lactic acidosis HHS (hypothenar hammer syndrome) Neuropathic pain of both feet Edema of both legs Anxiety and depression Type 2 diabetes mellitus, uncontrolled Hyperlipidemia Lichen sclerosus et atrophicus Noncompliance with treatment plan Type II diabetes mellitus with neurological manifestations, uncontrolled Diabetes mellitus type 2, uncontrolled, with complications Surgical History History of lumbar surgery L4-L5 H/O total hysterectomy Family History Father Diabetes Prostate cancer Grandmother Diabetes Aunt Colorectal cancer Brother Stroke Denies family history of Ovarian cancer Myocardial infarction Breast cancer Social History Smoking Status: Unknown if ever smoked Second Hand Exposure: No; Do You Dip or Chew Tobacco: No; Hx Alcohol Use: No Hx Substance Use: No Preferred Language: Palauan Communication Ability: Effective Visual Impairment: No Limitations Hearing Ability: Normal Quality Assurance Project Manager Required: No Beliefs That Will Affect Care: None marital status: Current Living Situation: Spouse Current Living Situation Comment: Lives with , 4 grandchildren and son. 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. How many Children do You have: 3 Feels Safe at Home: Yes Childhood Exposure to Second-Hand Smoke: No Diet: regular caffeine: Yes (soda) during the past year weight has: remained stable Dental Care, Regularly: No Physical Activity Frequency: Does not Exercise Seatbelt Use: always Sunscreen Use: No Assistive Devices: None Exam (Neuro) Physical Exam: HEENT: normocephalic Neuro: Mental: stuporus state with very minimal reponses to stimulations. eyes deviation to left. nonverbal. CN: pupils 2 mm b/l minimally reactive. eyes gaze deviation to left with some nystagmus. Motor: No abnormal movements, increase tone t/o upper and lower. Sens:no withdrawal to pain b/l limbs. DTR: absent t/o, toes b/l up going. Impression: 68 yo female, DNR/DNI, with sepsis, severe hypergleycemic hyperosmolar syndrome, DKA and in comatose state. Pt with declining of her overall status with brainstem dysfunction on exam. suspect pt likely has brainstem lesion/dysfunction and maybe hyperglycemic crises related cereral edema possible. Non-convulsive status also consideration. Recommendations: will get stat EEG pending mri brain empiric start of keppra with loading dose 1gm IV and standing dose 500mg IV bid. pt is DNI/DNR at this point, pending mri brain and EEG, likely will need to discuss with family about poor prognosis at this point. consider palliative care involvement. will follow up on EEG and mri today. discussed with ICU attending. Chart reviewed I have spent more than 50% educating patient about potential diagnosis and neurological evaluation and coordinating care with patient's treatment team. Total time spent (including chart review and coordination of care): 60 min (this includes chart review). Results & Data Vital Signs (Past 12 Hours) Vital Signs Temp Pulse Resp BP Pulse Ox O2 Del Method O2 Flow Rate 03/06/24 09:00 37.6 C H 100 H 27 H 96 Oxymask 2 03/06/24 08:32 37.7 C H 100 H 23 94 Oxymask 2 03/06/24 08:01 37.7 C H 100 H 23 95 Oxymask 2 03/06/24 08:01 145/101 H 03/06/24 08:00 37.7 C H 101 H 145/101 H 95 Oxymask 2 03/06/24 07:30 37.0 C 102 H 23 94 Oxymask 2 03/06/24 07:28 Oxymask 2 03/06/24 07:15 37.3 C 101 H 26 H 94 03/06/24 07:06 101 H 03/06/24 07:00 37.5 C 99 H 23 94 03/06/24 06:00 37 C 92 H 21 128/89 94 Oxymask 2 03/06/24 05:00 37.1 C 98 H 24 159/120 H 93 Oxymask 2 03/06/24 04:00 37.8 C H 102 H 21 151/115 H 93 Oxymask 2 03/06/24 03:00 37.2 C 101 H 23 130/103 H 92 Oxymask 2 03/06/24 02:00 37.2 C 102 H 18 163/91 H 93 Oxymask 2 03/06/24 00:00 37.6 C H 102 H 24 152/91 H 93 Room Air 03/06/24 00:00 112 H PG Care Time/CCT Total # of Minutes Spent Total Time Spent with Patient: Total time spent is greater than 50% in coordination of care (as documented) at patient's floor/unit and/or counseling patient: Coding Level of Care Code 78383 IN/OBS CONSULT LVL 4,60M Diagnoses Hyperosmolar hyperglycemic state (HHS) E11.00 Severe sepsis A41.9; R65.20
--- NOTE | 2024-03-06 11:43 | Magnetic Resonance Report ---
Brain MRI WITHOUT CONTRAST HISTORY: Severe encephalopathy, concerning for global anoxia TECHNIQUE: Multiplanar multisequence MRI of the brain was performed without the use of contrast. COMPARISON STUDY: Head CT 03/06/2024. FINDINGS: There may be subtle areas of restricted diffusion within the cortex of the bilateral pariet al/occipital lobes most pronounced on the left. There may be minimal associated hyperintense T2 signa l at these locations on the FLAIR sequences. Therefore, findings raise the possibility of subtle isch emic change. There is no mass, hematoma, midline shift. The major vascular flow-voids at the skull ba se are well-maintained. The ventricles and sulci demonstrate mild age-related involutional changes. T he orbits are unremarkable. Paranasal sinuses and mastoid air cells are clear. IMPRESSION: Possible subtle areas restricted diffusion within the cortex of the bilateral parietal/occipital lobe s most pronounced on the left. This raises the possibility of subtle anoxic-ischemic injury. ACT 112: Negative or not required by law. Electronically signed by: Cliff Christine M.D. 03/06/2024 11:40 AM
[2024-03-06] MEDS: levETIRAcetam IV 500 MG in SODIUM CHLOR 0.9% MINI-B 100 ML IV SCH (11:50)
[2024-03-06] MEDS: levETIRAcetam IV 1,000 MG in 0.9 % SODIUM CHLORIDE 100 ML IV STA (12:09)
[2024-03-06] MEDS ORDERED: SODIUM CHLOR 0.9% IV SCH (12:18)
[2024-03-06] MEDS ORDERED: LEVETIRACETAM IV SCH (12:18)
[2024-03-06] MEDS ORDERED: MINI B IV SCH (12:18)
[2024-03-06] MEDS: LORazepam 2 MG in SYRINGE 1 ML IV STA ×2 (12:20→12:32)
[2024-03-06] MEDS: LORazepam 2 MG/1 ML VIAL ONE (12:20)
[2024-03-06] MEDS: LACOSAMIDE 200 MG in SODIUM CHLORIDE 0.9% 50 ML IV ONE (12:45)
[2024-03-06] MEDS: METOPROLOL TARTRATE 1 MG/ML VIAL IV STA (12:56)
[2024-03-06] MEDS: METOPROLOL TARTRATE 1 MG/ML VIAL IV ONE (12:57)
[2024-03-06] MEDS: LACTATED RINGER'S 500 ML IV ONE (13:00)
[2024-03-06] MEDS: ETOMIDATE 2 MG/ML 20 ML VIAL IV ONE (13:05)
[2024-03-06] MEDS: AMIODARONE 150MG / 100ML D5W IV ONE (13:05)
--- NOTE | 2024-03-06 13:06 | Electroencephalogram ---
EEG Procedure Note Date of Service March 06, 2024 Start / End Times Start Time: 1144 End Time: 1246 Referring Physician marizol corley History coma Home Medication List Medication Instructions Recorded Confirmed Type ascorbic acid (vitamin C) 250 mg 250 mg PO DAILY 12/14/19 03/05/24 History tablet OneTouch Verio test strips (blood #100 ea 05/28/23 09/29/23 Rx sugar diagnostic) buspirone 5 mg tablet 5 mg PO TID #90 tabs 05/28/23 03/05/24 Rx lancets 33 gauge (OneTouch Delica #100 ea 05/28/23 09/29/23 Rx Plus Lancet) pen needle, diabetic 32 gauge x #100 ea 05/28/23 03/05/24 Rx 5/32" (BD Ultra-Fine Snow Pen Needle) rosuvastatin 20 mg tablet (Crestor) 20 mg PO DAILY #30 tabs 06/25/23 03/05/24 Rx clotrimazole 1 % topical cream 1 applic topical BID #30 grams 07/30/23 03/05/24 Rx (Lotrimin AF (clotrimazole)) gabapentin 100 mg capsule 100 mg PO TID #90 caps 07/30/23 03/05/24 Rx metformin 500 mg tablet 500 mg PO BIDWMEAL 07/30/23 03/05/24 History sertraline 50 mg tablet 50 mg PO DAILY #30 tabs 08/13/23 03/05/24 Rx losartan 50 mg tablet 50 mg PO DAILY #90 tabs 09/18/23 03/05/24 Rx furosemide 20 mg tablet 0 mg PO DAILY 03/05/24 03/05/24 History insulin degludec 100 unit/mL (3 0 unit subcut DAILY 03/05/24 03/05/24 History mL) subcutaneous pen (Tresiba FlexTouch U-100 insulin) tirzepatide 2.5 mg/0.5 mL 0 mg subcut WK 03/05/24 03/05/24 History subcutaneous pen injector (Silvana) Inpatient Medication List Dextrose (Dextrose 50% 50 Ml Syringe) 25 - 50 ml IV UD PRN; Protocol PRN Reason: Hypoglycemia Protocol Stop: 04/04/24 09:03 Last Admin: 03/05/24 22:28 Dose: 25 ml Documented By: Admin: 03/05/24 17:24 Dose: 25 ml Documented By: Admin: 03/05/24 17:05 Dose: 25 ml Documented By: GOSIA Heparin Sodium (Porcine) (Heparin Sod 5,000 Unit/0.5 Ml Vial) 5,000 units SQ BID [facility] Stop: 04/04/24 20:59 Last Admin: 03/06/24 11:57 Dose: Not Given Documented By: Admin: 03/05/24 21:06 Dose: 5,000 units Documented By: ESEulalia Insulin Human Regular 250 (units/ Sodium Chloride) 250 mls @ 0 mls/hr IV .Q0M [facility]; Protocol Stop: 04/04/24 09:14 Last Admin: 03/06/24 11:58 Dose: Not Given Documented By: GOSIA Co-signed By: WRS Titration: 03/06/24 08:30 Dose: 0 units/hr, 0 mls/hr Documented By: GOSIA Co-signed By: WRS Titration: 03/06/24 07:08 Dose: 2 units/hr, 2 mls/hr Documented By: ESG Co-signed By: LAF Titration: 03/06/24 06:09 Dose: 2 units/hr, 2 mls/hr Documented By: ESG Co-signed By: TP Titration: 03/06/24 05:14 Dose: 1.7 units/hr, 1.7 mls/hr Documented By: ESG Co-signed By: TP Titration: 03/06/24 04:00 Dose: 1.7 units/hr, 1.7 mls/hr Documented By: ESG Co-signed By: TP Titration: 03/06/24 03:01 Dose: 1.7 units/hr, 1.7 mls/hr Documented By: ESG Co-signed By: AMW Titration: 03/06/24 02:05 Dose: 1.4 units/hr, 1.4 mls/hr Documented By: ESG Co-signed By: AMW Titration: 03/06/24 01:07 Dose: 1.4 units/hr, 1.4 mls/hr Documented By: ESG Co-signed By: AMW Titration: 03/05/24 22:45 Dose: 1.4 units/hr, 1.4 mls/hr Documented By: ESG Co-signed By: TP Titration: 03/05/24 22:00 Dose: 0 units/hr, 0 mls/hr Documented By: ESG Co-signed By: TP Titration: 03/05/24 21:03 Dose: 2.4 units/hr, 2.4 mls/hr Documented By: ESG Co-signed By: AMW Titration: 03/05/24 20:12 Dose: 3 units/hr, 3 mls/hr Documented By: ESG Co-signed By: TP Titration: 03/05/24 19:19 Dose: 3.7 units/hr, 3.7 mls/hr Documented By: ESG Co-signed By: TP Titration: 03/05/24 19:12 Dose: 3.7 units/hr, 3.7 mls/hr Documented By: ESG Co-signed By: LAF Titration: 03/05/24 15:36 Dose: 6.2 units/hr, 6.2 mls/hr Documented By: LAF Co-signed By: WRS Titration: 03/05/24 14:15 Dose: 7.8 units/hr, 7.8 mls/hr Documented By: LAF Co-signed By: WRS Titration: 03/05/24 13:00 Dose: 7.8 units/hr, 7.8 mls/hr Documented By: LAF Co-signed By: KAYA Admin: 03/05/24 09:26 Dose: 6.5 units/hr, 6.5 mls/hr Documented By: MNE Co-signed By: NOREEN Piperacillin Sod/Tazobactam (Sod 4.5 gm/ Dextrose) 100 mls @ 25 mls/hr IV Q8H [facility]; Protocol Stop: 03/07/24 11:59 Last Admin: 03/06/24 11:54 Dose: 25 mls/hr Documented By: Infusion: 03/06/24 06:09 Dose: Infused Documented By: Infusion: 03/06/24 05:14 Dose: 25 mls/hr Documented By: Infusion: 03/06/24 03:01 Dose: 25 mls/hr Documented By: Infusion: 03/06/24 02:05 Dose: 25 mls/hr Documented By: Admin: 03/06/24 01:41 Dose: 25 mls/hr Documented By: Infusion: 03/05/24 23:00 Dose: Infused Documented By: Infusion: 03/05/24 19:56 Dose: 25 mls/hr Documented By: Admin: 03/05/24 18:35 Dose: 25 mls/hr Documented By: GOSIA Acetaminophen (Ofirmev) 1,000 mg in 100 mls @ 400 mls/hr IV Q8H PRN PRN Reason: Fever Stop: 03/08/24 11:52 Last Infusion: 03/06/24 04:00 Dose: Infused Documented By: Admin: 03/06/24 03:44 Dose: 400 mls/hr Documented By: STEVEN Lacosamide 200 mg/ Sodium (Chloride) 70 mls @ 140 mls/hr IV ONE ONE Stop: 03/06/24 13:14 Last Admin: 03/06/24 12:45 Dose: 140 mls/hr Documented By: GOSIA Insulin Aspart (Insulin Aspart Per Unit Charge) 0 units SC ACHS [facility] Stop: 04/04/24 11:29 Last Admin: 03/06/24 11:58 Dose: Not Given Documented By: GOSIA Co-signed By: KAYA Admin: 03/05/24 21:04 Dose: Not Given Documented By: STEVEN Co-signed By: TUCKER Admin: 03/05/24 15:45 Dose: Not Given Documented By: Admin: 03/05/24 12:32 Dose: Not Given Documented By: GOSIA Discontinued Medications Furosemide (Furosemide 40 Mg/4 Ml Vial) 40 mg IV ONE ONE Stop: 03/06/24 08:34 Last Admin: 03/06/24 08:39 Dose: 40 mg Documented By: GOSIA Furosemide (Furosemide 40 Mg/4 Ml Vial) Confirm Administered Dose 40 mg IV .STK- MED ONE Stop: 03/06/24 08:36 Last Admin: 03/06/24 08:42 Dose: Not Given Documented By: GOSIA Sodium Chloride (Nss) 2,000 mls @ 999 mls/hr IV .Q2H1M [facility] Stop: 03/05/24 10:15 Last Infusion: 03/05/24 13:31 Dose: Infused Documented By: Admin: 03/05/24 08:31 Dose: 999 mls/hr Documented By: NOREEN Acetaminophen (Ofirmev) 1,000 mg in 100 mls @ 400 mls/hr IV NOW STA Stop: 03/05/24 08:29 Last Infusion: 03/05/24 08:42 Dose: Infused Documented By: Admin: 03/05/24 08:27 Dose: 400 mls/hr Documented By: NOREEN Cefepime HCl (Maxipime) 2,000 mg in 20 mls @ 5 mls/min IV NOW STA; Protocol Stop: 03/05/24 08:20 Last Admin: 03/05/24 08:34 Dose: 5 mls/min Documented By: NOREEN Vancomycin HCl 1,250 mg/ (Sodium Chloride) 525 mls @ 200 mls/hr IV NOW ONE Stop: 03/05/24 10:46 Last Infusion: 03/05/24 13:31 Dose: Infused Documented By: Admin: 03/05/24 08:54 Dose: 200 mls/hr Documented By: HERIBERTO Parenteral Electrolytes (Plasma-Lyte A Ph 7.4) 1,000 mls @ 999 mls/hr IV .Q1H1M ONE Stop: 03/05/24 12:00 Last Infusion: 03/05/24 13:31 Dose: Infused Documented By: Admin: 03/05/24 12:04 Dose: 999 mls/hr Documented By: GOSIA Piperacillin Sod/Tazobactam (Sod 4.5 gm/ Dextrose) 100 mls @ 200 mls/hr IV ONE ONE; Protocol Stop: 03/05/24 12:29 Last Infusion: 03/05/24 13:30 Dose: Infused Documented By: Admin: 03/05/24 12:07 Dose: 200 mls/hr Documented By: GOSIA Lactated Ringer's (Lr) 1,000 mls @ 999 mls/hr IV .Q1H1M ONE Stop: 03/05/24 12:57 Last Infusion: 03/05/24 15:57 Dose: Infused Documented By: Admin: 03/05/24 13:00 Dose: 999 mls/hr Documented By: GOSIA Parenteral Electrolytes (Plasma-Lyte A Ph 7.4) 1,000 mls @ 125 mls/hr IV .Q8H [facility] Stop: 04/04/24 12:44 Last Infusion: 03/05/24 15:57 Dose: Infused Documented By: Admin: 03/05/24 13:01 Dose: 125 mls/hr Documented By: GOSIA Potassium Chloride 20 meq/ (Parenteral Electrolytes) 1,010 mls @ 125 mls/hr IV .Q8H5M [facility] Stop: 04/04/24 14:29 Last Infusion: 03/05/24 19:56 Dose: Infused Documented By: Admin: 03/05/24 14:43 Dose: 125 mls/hr Documented By: LAF Potassium Chloride (K Ash / Wtr) 10 meq in 100 mls @ 100 mls/hr IV Q1H [facility] Stop: 03/05/24 20:29 Last Infusion: 03/05/24 20:53 Dose: Infused Documented By: Admin: 03/05/24 19:56 Dose: 100 mls/hr Documented By: Infusion: 03/05/24 19:41 Dose: Infused Documented By: Admin: 03/05/24 18:41 Dose: 100 mls/hr Documented By: LAF Potassium Chloride/Dextrose/Sod Cl (D5w And 1/2nss + 20meq Kcl) 20 meq in 1,000 mls @ 125 mls/hr IV .Q8H [facility] Stop: 04/04/24 18:29 Last Infusion: 03/06/24 12:33 Dose: Infused Documented By: Infusion: 03/06/24 06:35 Dose: 125 mls/hr Documented By: Infusion: 03/06/24 06:09 Dose: 200 mls/hr Documented By: Infusion: 03/06/24 05:14 Dose: 200 mls/hr Documented By: Admin: 03/06/24 05:03 Dose: 200 mls/hr Documented By: Infusion: 03/06/24 05:03 Dose: Infused Documented By: Infusion: 03/06/24 04:00 Dose: 200 mls/hr Documented By: Infusion: 03/06/24 03:44 Dose: 0 mls/hr Documented By: Infusion: 03/06/24 03:01 Dose: 200 mls/hr Documented By: Infusion: 03/06/24 02:05 Dose: 200 mls/hr Documented By: Admin: 03/05/24 23:56 Dose: 200 mls/hr Documented By: Infusion: 03/05/24 23:30 Dose: Infused Documented By: Infusion: 03/05/24 23:00 Dose: 200 mls/hr Documented By: Infusion: 03/05/24 21:26 Dose: 200 mls/hr Documented By: Infusion: 03/05/24 21:10 Dose: 125 mls/hr Documented By: Infusion: 03/05/24 19:56 Dose: 200 mls/hr Documented By: Admin: 03/05/24 18:35 Dose: 200 mls/hr Documented By: GOSIA Magnesium Sulfate/Dextrose (Magnesium Sulfate / D5w) 1 gm in 100 mls @ 50 mls/hr IV Q2H [facility] Stop: 03/06/24 01:29 Last Infusion: 03/06/24 02:05 Dose: Infused Documented By: Admin: 03/05/24 23:30 Dose: 50 mls/hr Documented By: Infusion: 03/05/24 23:30 Dose: Infused Documented By: Infusion: 03/05/24 23:00 Dose: 50 mls/hr Documented By: Admin: 03/05/24 21:29 Dose: 50 mls/hr Documented By: STEVEN Vancomycin HCl 1,000 mg/ (Sodium Chloride) 270 mls @ 200 mls/hr IV NOW ONE Stop: 03/06/24 00:50 Last Infusion: 03/06/24 01:41 Dose: Infused Documented By: Admin: 03/05/24 23:55 Dose: 200 mls/hr Documented By: STEVEN Levetiracetam 1,000 mg/ Sodium (Chloride) 110 mls @ 440 mls/hr IV NOW STA Stop: 03/06/24 10:47 Last Infusion: 03/06/24 12:33 Dose: Infused Documented By: Admin: 03/06/24 12:09 Dose: 440 mls/hr Documented By: GOSIA Levetiracetam 500 mg/ Sodium (Chloride) 105 mls @ 420 mls/hr IV Q12H [facility] Stop: 04/05/24 10:29 Last Infusion: 03/06/24 12:34 Dose: Infused Documented By: Admin: 03/06/24 11:50 Dose: 420 mls/hr Documented By: GOSIA Lorazepam 2 mg/ Syringe 2 mls @ 2 mls/min IV NOW STA Stop: 03/06/24 12:16 Last Admin: 03/06/24 12:20 Dose: Not Given Documented By: GOSIA Insulin Human Regular (Novolin-R Bolus From Bag) 6 units IV ONE ONE Stop: 03/05/24 09:31 Last Admin: 03/05/24 09:28 Dose: 6 units Documented By: HERIBERTO Co-signed By: NOREEN Lorazepam (Lorazepam 2 Mg/1 Ml Vial) Confirm Administered Dose 2 mg .ROUTE .STK- MED ONE Stop: 03/06/24 12:15 Last Admin: 03/06/24 12:20 Dose: 2 mg Documented By: GOSIA Metoprolol Tartrate (Metoprolol Tartrate 1 Mg/Ml Vial) Confirm Administered Dose 5 mg IV .STK-MED ONE Stop: 03/06/24 12:48 Last Admin: 03/06/24 12:57 Dose: Not Given Documented By: GOSIA Metoprolol Tartrate (Metoprolol Tartrate 1 Mg/Ml Vial) 2.5 mg IV NOW STA Stop: 03/06/24 12:51 Last Admin: 03/06/24 12:56 Dose: 2.5 mg Documented By: GOSIA Larson (Hhs Goal Range 250-350 Mg/Dl) 1 each N/A ONE ONE Stop: 03/05/24 09:05 Last Admin: 03/05/24 09:36 Dose: Not Given Documented By: HERIBERTO Larson (Stat Iv Infusion Titration Per Protocol) 1 each N/A NOW STA Stop: 03/05/24 09:05 Last Admin: 03/05/24 09:36 Dose: Not Given Documented By: HERIBERTO Larson (Pending D5 1/2ns+20meq Kcl Ivf) 1 each N/A Q2H [facility] Stop: 04/04/24 10:44 Last Admin: 03/05/24 17:25 Dose: Not Given Documented By: Admin: 03/05/24 17:25 Dose: Not Given Documented By: Admin: 03/05/24 17:25 Dose: Not Given Documented By: Admin: 03/05/24 15:46 Dose: Not Given Documented By: GOSIA Larson (Dka Goal Range 150-250 Mg/Dl) 1 each N/A ONE ONE Stop: 03/05/24 10:45 Last Admin: 03/05/24 13:00 Dose: 1 each Documented By: GOSIA Ondansetron HCl (Ondansetron Inj 2 Mg/Ml 2 Ml Vial) 4 mg IV NOW STA Stop: 03/05/24 08:14 Last Admin: 03/05/24 08:26 Dose: 4 mg Documented By: NOREEN Description This is a 21 electrode EEG with a single channel dedicated to limited EKG. The electrodes were placed in accordance with the International 10-20 system. Interpretation This is a 21 electrode EEG with a single channel dedicated to limited EKG. The electrodes were placed in accordance with the International 10-20 system. There is diffuse slowing and episodic sharp waves lateralizing towards parietal/temporal bilaterrally. Ativan given 2mg x2 (15 min apart) and after Ativan, overall slowing and no further sharp wave build up noted . Photic stimulation: unremarkable Hyperventilation performed: ___ unremarkable; _x_ not performed. Interpretation Abnormal EEG with periodic lateralized epileptiform discharges (PLED) noted prior to ativan and resolution of PLED after that. It is abnormal with diffuse slowing suggestive of cortical dysfunction. clinical correlation recommended. [facility] Procedure Codes Indication for Procedure (1) Acute metabolic encephalopathy: Neurology Neurology: 44931 EEG include record awake & drowsy
[2024-03-06] MEDS: AMIODARONE 360MG / 200ML D5W IV ONE (13:15)
[2024-03-06] MEDS: RAPID SEQUENCE INDUCTION BAG ONE (13:26)
[2024-03-06] MEDS ORDERED: STAT IV Infusion **Titration per Protocol STA ×3 (13:35→13:36)
[2024-03-06] MEDS ORDERED: PROPOFOL BOLUS FROM BAG IV PRN (13:35)
[2024-03-06] MEDS ORDERED: 0.2 MICRON FILTER SET 1 EACH IV STA (13:36)
[2024-03-06] MEDS ORDERED: AMIODARONE IV BOLUS & DRIP IV STA (13:36)
--- NOTE | 2024-03-06 13:44 | Procedure Note ---
Procedure Note Date of Service March 06, 2024 Note INTUBATION PROCEDURE NOTE: Dr. Elton Lacey A time-out was completed verifying correct patient, procedure, site, positioning. Patient was evaluated and required intubation for airway.. Sedative agent used: 20 mg of time Paralysis agent used: None Emergent consent was implied given patients rapidly declining clinical status and need for airway protection. I did have extensive discussion with the patient's and daughters in the waiting area regarding the need for intubation given her declining respiratory status. They indicated that they would be okay with intubation and mechanical ventilation for short period of t joy if she has a recoverable illness. Number of attempts: 1 Grade view: 1 The patient was prepared in the appropriate fashion. Sedation was achieved utilizing etomidate. The patient was easily ventilated using [id number] to achieve adequate oxygenation. A 7.5 Latvian endotracheal tube was placed under GlideScope guided to 20 cm at the lip. The stylette was removed and balloon was inflated with 10mL of air. Appropriate Colorimetric change was appreciated. Bilateral breath sounds were heard without air sounds in the abdomen. Post Intubation Chest X-ray ordered and is pending Patient tolerated the procedure well and there were no immediate complications. Coding CPT Codes Resuscitation - Resuscitation: 53576 Endotracheal Intubation, emergency ([id number]) [facility] [place]) Resuscitation Resuscitation: 74833 Endotracheal Intubation, emergency
--- NOTE | 2024-03-06 13:50 | Communication Note ---
Date of Service: March 06, 2024 Neurology was consulted due to the ongoing concerns of potential seizure activity. Bedside EEG was performed and neurologist was at bedside during the EEG. She got sequential doses of Ativan 2 mg x 2. Subsequently she began having tachyarrhythmias. We obtained an EKG which revealed atrial fibrillation with heart rates in the 140s. Her systolic blood pressures began dropping to the 70s on numerous blood pressure checks. Decision was made to urgently cardiovert the patient. Pads were placed on the patient. Patient was heavily sedated from Ativan. Patient had continuous vital signs monitored. Defibrillator was placed in synchronization mode and the patient was cardioverted with 100 J of energy. She briefly went into a sinus rhythm and then quickly went back into atrial fibrillation. We then gave the patient a 150 mg bolus of amiodarone. Patient had systolic pressures once again dropping into the 70s with heart rates in the 130s. We reattempted cardioversion with 150 J of energy. Patient was briefly again in sinus rhythm, but was unable to maintain a sinus rhythm. The patient was then placed on phenylephrine for hemodynamic support with MAP goals greater than 65 mmHg. I then had an extensive discussion with the patient's family including her and daughters regarding further critical care needs such as intubation and mechanical ventilation. Family was agreeable with proceeding with intubation mechanical ventilation for airway protection given her recent Ativan dosing for seizure control. Patient was successfully intubated and a 7.5 size endotracheal tube was placed. Patient will be placed on propofol for burst suppression of seizure activity. Phenylephrine will continue to be weaned as possible. Patient was also given a bolus of 500 cc of LR. Hemodynamics improved with fluids and vasopressor support. Additionally MRI of the brain was reviewed with the neurologist. MRI brain revealing possible subtle areas of restricted diffusion within the cortex of the bilateral parietal/occipital lobes which are more pronounced on the left. This raises the possibility of subtle anoxic/ischemic injury to the brain. Will continue to maintain glucoses around 250-3 50. There is concern for possible osmotic demyelination. Her exam was consistent with a GCS of 3. Rhonchorous breath sounds bilaterally. Completely nonresponsive to verbal and painful stimuli. 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 She has a left lower gaze paralysis. CRITICAL CARE TIME - I have personally spent 58 minutes of critical care time in the direct management of this patient. This is a life/limb threatening event. This includes time spent evaluating patient, direct bedside care, chart review, placing orders, interpretation of diagnostic studies, discussion with consultants, patient, and family members, as well as other required patient management activities. This time is exclusive of all separately billable procedures, and teaching time and separate from and in addition to any other critical care service time. Coding Level of Care Code 87823 CRITICAL CARE 1ST 30-74M Time Spent (min) 58
[2024-03-06 13:55] LABS: BUN Creatinine Ratio 19.4 (10-20); Calcium 7.6 mg/dl (8.6-10.3); Est GFR (African American) 37.1 ml/min; Magnesium 2.1 mg/dl (1.7-2.4); Potassium 4.4 mmol/L (3.5-5.1)
--- NOTE | 2024-03-06 14:02 | XRay Report ---
XR chest 1V portable HISTORY: s/p intubation COMPARISON: Chest CT 03/06/2024. FINDINGS: The endotracheal tube terminates 4.6 cm and the papo. No pneumothorax. The cardiac silhou ette is borderline enlarged. There is progressive interstitial/vascular thickening most pronounced on the right. This favors asymmetric pulmonary edema. There is a trace right pleural effusion. IMPRESSION: 1. Satisfactory support line placement 2. Asymmetric pulmonary edema with a trace right pleural effusion. ACT 112: Negative or not required by law. Electronically signed by: Cliff Christine M.D. 03/06/2024 2:00 PM
--- NOTE | 2024-03-06 14:28 | Pharmacy Report ---
Pharmacy Glycemic Short Note 2 - Date of Service March 06, 2024 - Glycemic Short BSG Results (Last 24 hours): 03/05/24 03/05/24 03/05/24 14:16 15:34 16:01 Glucose 163 H POC Glucose 423 H* 293 H 03/05/24 03/05/24 03/05/24 16:29 17:21 18:14 Glucose POC Glucose 189 H 204 H 268 H 03/05/24 03/05/24 03/05/24 19:21 20:01 20:05 Glucose 221 H POC Glucose 266 H 222 H 03/05/24 03/05/24 03/05/24 21:00 21:01 22:10 Glucose POC Glucose 236 H 208 H 179 H 03/05/24 03/05/24 03/06/24 22:45 23:59 00:22 Glucose 294 H POC Glucose 252 H 289 H 03/06/24 03/06/24 03/06/24 01:02 02:02 02:59 Glucose POC Glucose 294 H 341 H* 359 H* 03/06/24 03/06/24 03/06/24 03:54 03:58 04:59 Glucose 379 H* POC Glucose 358 H* 344 H* 03/06/24 03/06/24 03/06/24 06:07 07:07 08:32 Glucose POC Glucose 365 H* 288 H 249 H 03/06/24 03/06/24 03/06/24 10:14 12:53 13:02 Glucose 341 H* POC Glucose 259 H 324 H* OUTPATIENT ANTIDIABETIC REGIMEN: * H&P reports patient discontinued diabetic meds 2 months ago due to side effects * A1c = 15.9% (03/05/24) ASSESSMENT: * Carol is a 68 yo T2DM admitted with [facility]. She was started on IV insulin infusion per DKA/[facility] protocol. * Electrolyte abnormalities improved on 55 am however worsening mental status. Neurology consulted today due to concerns of seizure activity. PLAN FOR INPATIENT GLYCEMIC CONTROL: * Hold outpatient oral diabetes medications * Basal insulin * Lantus [] units SQ BID * Bolus insulin * NovoLog per scale ACHS or Q6hrs while NPO * Goal Range: Low [] mg/dL - High [] mg/dL * Correction Factor: [] mg/dL/unit * Nutritional / Prandial insulin per carb ratio of 1 unit per [] grams CHO consumed Neurology was consulted due to the ongoing concerns of potential seizure activity. Bedside EEG was performed and neurologist was at bedside during the EEG. She got sequential doses of Ativan 2 mg x 2. Subsequently she began having tachyarrhythmias. We obtained an EKG which revealed atrial fibrillation with heart rates in the 140s. Her systolic blood pressures began dropping to the 70s on numerous blood pressure checks. Decision was made to urgently cardiovert the patient. Pads were placed on the patient. Patient was heavily sedated from Ativan. Patient had continuous vital signs monitored. Defibrillator was placed in synchronization mode and the patient was cardioverted with 100 J of energy. She briefly went into a sinus rhythm and then quickly went back into atrial fibrillation. We then gave the patient a 150 mg bolus of amiodarone. Patient had systolic pressures once again dropping into the 70s with heart rates in the 130s. We reattempted cardioversion with 150 J of energy. Patient was briefly again in sinus rhythm, but was unable to maintain a sinus rhythm. The patient was then placed on phenylephrine for hemodynamic support with MAP goals greater than 65 mmHg. I then had an extensive discussion with the patient's family including her and daughters regarding further critical care needs such as intubation and mechanical ventilation. Family was agreeable with proceeding with intubation mechanical ventilation for airway protection given her recent Ativan dosing for seizure control. Patient was successfully intubated and a 7.5 size endotracheal tube was placed. Patient will be placed on propofol for burst suppression of seizure activity. Phenylephrine will continue to be weaned as possible. Patient was also given a bolus of 500 cc of LR. Hemodynamics improved with fluids and vasopressor support. Additionally MRI of the brain was reviewed with the neurologist. MRI brain revealing possible subtle areas of restricted diffusion within the cortex of the bilateral parietal/occipital lobes which are more pronounced on the left. This raises the possibility of subtle anoxic/ischemic injury to the brain. Will continue to maintain glucoses around 250-3 50. There is concern for possible osmotic demyelination.
[2024-03-06 14:32] LABS: Hematocrit (blood only) 26.1 % (37.0-47.0); Hemoglobin 9.1 g/dl (12.0-16.0); Mean Corpuscular Hemoglobin 29.7 pg (25.0-34.0); Mean Corpuscular Hgb Conc 34.9 g/dL (32.0-36.0); Mean Corpuscular Volume 85.3 fL (80.0-100.0); Mean Platelet Volume 9.6 fL (9.4-12.4); Platelet Count 351 K/uL (130-400); RDW Coefficient of Variation 12.9 % (11.5-14.5); RDW Standard Deviation 39.5 fL (36.4-46.3); Red Blood Count 3.06 M/uL (4.20-5.40); White Blood Count 30.79 K/ul (4.8-10.8)
--- NOTE | 2024-03-06 14:40 | Pharmacy Report ---
Pharmacy Glycemic Short Note 2 - Date of Service March 06, 2024 - Glycemic Short BSG Results (Last 24 hours): 03/05/24 03/05/24 03/05/24 15:34 16:01 16:29 Glucose 163 H POC Glucose 293 H 189 H 03/05/24 03/05/24 03/05/24 17:21 18:14 19:21 Glucose POC Glucose 204 H 268 H 266 H 03/05/24 03/05/24 03/05/24 20:01 20:05 21:00 Glucose 221 H POC Glucose 222 H 236 H 03/05/24 03/05/24 03/05/24 21:01 22:10 22:45 Glucose POC Glucose 208 H 179 H 252 H 03/05/24 03/06/24 03/06/24 23:59 00:22 01:02 Glucose 294 H POC Glucose 289 H 294 H 03/06/24 03/06/24 03/06/24 02:02 02:59 03:54 Glucose 379 H* POC Glucose 341 H* 359 H* 03/06/24 03/06/24 03/06/24 03:58 04:59 06:07 Glucose POC Glucose 358 H* 344 H* 365 H* 03/06/24 03/06/24 03/06/24 07:07 08:32 10:14 Glucose POC Glucose 288 H 249 H 259 H 03/06/24 03/06/24 12:53 13:02 Glucose 341 H* POC Glucose 324 H* OUTPATIENT ANTIDIABETIC REGIMEN: * Patient discontinued anti-DM meds * A1c = 15.9% (03/05/24) ASSESSMENT: * Carol is a 68 yo T2DM admitted with [facility]. BSG 1069 on arrival to the ED. She was started on IV insulin infusion per DKA/[facility] protocol. * Patient is prescribed basal insulin and metformin but stopped these medications about 2 months ago due to side effects. * Electrolyte abnormalities improved on 55 am, however worsening mental status. Calculated serum osmolality = 299. * Neurology consulted due to concerns of seizure activity. New onset A. fib, phenylephrine drip started for hypotension and patient intubated for airway protection. * Plan per ICU rounds is to continue patient on IV insulin infusion at the [facility] goal range. Dextrose containing fluids were stopped due to volume overload. PLAN FOR INPATIENT GLYCEMIC CONTROL: Continue IV insulin infusion to target BSG of 250 - 350 mg/dL
[2024-03-06 14:42] LABS: iSTAT Allen Test Pass; iSTAT Art Bld Gas pCO2 Correct 26 mmHg (35-46); iSTAT Art Bld Gas pH Corrected 7.381 (7.35-7.45); iSTAT Arterial Blood Gas HCO3 16 meg/L (19-24); iSTAT Arterial Blood Gas pCO2 27 mmHg (35-46); iSTAT Arterial Blood Gas pH 7.37 (7.35-7.45); iSTAT Arterial Blood Gas pO2 116 mmHg (80-95); iSTAT Arterial Blood Gas pO2 C 112; iSTAT Carbon Dioxide 16 mmol/L (24-31); iSTAT FiO2 40 %; iSTAT Hematocrit 24 % (37-47); iSTAT Hemoglobin 8.2 g/dl (12.0-16.0); iSTAT Potassium 3.8 mmol/L (3.3-5.0); iSTAT Site R Radial; iSTAT Sodium 133 mmol/L (135-144)
[2024-03-06 14:47] LABS: Basophils # (auto) 0.11 K/uL (0.00-0.20); Basophils % (auto) 0.4 %; Echinocytes 1+; Eosinophils # (auto) 0.01 K/uL (0.00-0.50); Immature Granulocytes # (auto) 1.33 K/uL (0.01-0.20); Immature Granulocytes % (auto) 4.3 %; Lymphocytes # (auto) 2.13 K/uL (1.20-3.40); Lymphocytes % (auto) 6.9 %; Monocytes # (auto) 1.65 K/uL (0.11-0.59); Monocytes % (auto) 5.4 %; Neutrophils # (auto) 25.56 K/uL (1.40-6.50); Polychromasia 1+
[2024-03-06] MEDS: PHENYLEPHRINE HCL 25 MG/250 ML NSS IV ONE (15:14)
[2024-03-06] MEDS: AMIODARONE / D5W 150 MG/100 ML BAG IV STA (15:15)
[2024-03-06] MEDS: propofoL 1,000 MG/100 ML VIAL IV SCH (15:16)
[2024-03-06] MEDS: PHENYLEPHRINE/NSS 25 MG/250 ML BAG IV SCH (15:16)
[2024-03-06] MEDS: AMIODARONE / D5W 360 MG/200 ML BAG IV ONE (15:17)
[2024-03-06] MEDS: CALCIUM GLUCONATE 1,000 MG/60 ML BAG IV STA (15:23)
[2024-03-06] MEDS: levETIRAcetam IV 750 MG in 0.9 % SODIUM CHLORIDE 100 ML IV SCH (18:05)
[2024-03-06] MEDS: Heparin IV Adult Wt-Based Standard *NO* INITIAL Bolus Protocol IV STA (20:27)
[2024-03-06] MEDS: HEPARIN 25000 UNIT/500 ML D5W IV ONE (20:27)
[2024-03-06] MEDS: HEPARIN SODIUM/DEXTROSE 25,000 UNITS/500 ML BAG IV SCH (20:27)
[2024-03-06] MEDS: LACOSAMIDE 100 MG in SODIUM CHLORIDE 0.9% 50 ML IV SCH (20:28)
[2024-03-06 20:50] LABS: Partial Thromboplastin Ratio 0.9; Partial Thromboplastin Time 23 Seconds (21-31)
--- NOTE | 2024-03-06 22:22 | Electrocardiogram Report ---
Test Reason : Blood Pressure : / mmHG Vent. Rate : 141 BPM Atrial Rate : 141 BPM P-R Int : 118 ms QRS Dur : 120 ms QT Int : 338 ms P-R-T Axes : 082 093 039 degrees QTc Int : 517 ms Sinus tachycardia with Premature atrial complexes Right bundle branch block T wave abnormality, consider inferior ischemia Abnormal ECG When compared with ECG of 30-JUL-2023 12:07, Vent. rate has increased BY 71 BPM Right bundle branch block is now Present Borderline criteria for Anterior infarct are no longer Present Confirmed by Karan Holman ([id number]) on 03/06/2024 10:21:58 PM Referred By: REFERRED SELF Confirmed By:Karan Holman
--- NOTE | 2024-03-06 22:29 | Hospitalist Progress Note ---
Date of Service March 06, 2024 Assessment & Plan (1) Sepsis: Plan: Lactate 4.6 -> 6.1 after 2L NSS bolus, additional Plasma-lyte bolus 1L ordered, continue to trend lactate Suspected urinary source (CT A/P ordered) +/- aspiration Broad spectrum antibiotics with cefepime and vancomycin given in the ER, will switch to vancomycin/Zosyn Follow up blood and urine cultures On 03/06 Patient remains in the iCU Consulted Neurolgy Concern forpossible central pontine myelinosis due to severe osmotic chages. Ordered MRI of brain. ONEIL improving. However, patient remains encephalopathic and not responsive (2) Type 2 diabetes mellitus with hyperosmolar hyperglycemic state (HHS): Plan: Secondary to stopping diabetes medications HbA1C 9.2 in September, repeat with AM labs Insulin aim 150-250 due to concurrent DKA Half NSS + 20 meq KCl @ 150ml/hr after fluid resuscitation, add D5 once glucose within aim q4h BMP/pH/PO/Mg (3) DKA (diabetic ketoacidosis): Plan: Mostly HHS but mild DKA with ketonuria, bicarb 17, anion gap 21 (although suspect most of this is lactic acidosis) (4) Unresponsive state: Plan: ABG currently with appropriately low CO2 and tachypnea Continue to monitor for deterioration however she is not for intubation (5) Elevated troponin: Plan: Suspect demand related given etiologies as above New RBBB and TWI on EKG, doubtful PE given no hypoxia Trend troponin TTE (6) Hypertension: Plan: Hold all anti-hypertensives at this time (7) ONEIL (acute kidney injury): Plan: Suspected pre-renal Amado catheter inserted IV fluids as above (8) UTI (urinary tract infection): Plan VTE Prophylaxis - heparin 5000 units SQ BID Diet - NPO Disposition - admit to ICU Admission and Anticipated Discharge Date Admission Date: March 05, 2024 Subjective 68 yo female is unresponsive. Review of Systems Review of Systems: Unobtainable due to cognitive status Physical Exam Physical Exam: Patient unresponsive. Constitutional: + not well nourished and no acute distre ss Eyes: PERRL, conjunctivae normal, anicteric sclerae Respiratory: normal respiratory effort; no respiratory distress Auscultation: + rhonchi (bilateral); no wheezes Cardiovascular: Rate/Rhythm: regular rhythm and + tachycardic Heart Sounds: no murmur Gastrointestinal (Abdomen): normal bowel sounds, soft, nontender, no hepatosplenomegaly Skin: no rashes, warm and dry Neurologic: + does not move all extremities and + no t awake Psychiatric: Orientation: + not alert (GCS3 (E1V1M1)) Results & Data Results & Data Vital Signs (Past 12 Hours) Vital Signs Temp Pulse Resp BP Pulse Ox O2 Del Method FiO2 03/06/24 22:00 37 C 67 20 93/55 L 100 Mechanical Vent 40 03/06/24 21:00 36.2 C L 64 20 88/56 L 100 Mechanical Vent 40 03/06/24 20:23 62 20 99 40 03/06/24 20:00 35.0 C L 61 20 100/62 100 Mechanical Vent 40 03/06/24 20:00 34.9 C L 03/06/24 20:00 Mechanical Vent 40 03/06/24 20:00 40 03/06/24 19:10 34.9 C L 50 L 18 03/06/24 19:01 34.9 C L 50 L 18 03/06/24 19:00 34.9 C L 50 L 20 94/62 L 95 Mechanical Vent 40 03/06/24 19:00 94/62 L 03/06/24 18:59 34.9 C L 51 L 18 03/06/24 18:53 34.9 C L 53 L 17 03/06/24 18:46 91/54 L 03/06/24 18:46 35.0 C L 51 L 19 03/06/24 18:40 35.0 C L 49 L 18 03/06/24 18:30 35.0 C L 49 L 17 03/06/24 18:20 35.0 C L 51 L 19 03/06/24 18:15 35.0 C L 51 L 19 03/06/24 18:15 102/64 03/06/24 18:11 35.0 C L 55 L 18 03/06/24 18:03 35.1 C L 55 L 18 03/06/24 17:50 35.1 C L 52 L 19 03/06/24 17:40 35.1 C L 51 L 19 03/06/24 17:30 102/65 03/06/24 17:30 35.2 C L 52 L 19 03/06/24 17:20 35.2 C L 51 L 19 03/06/24 17:15 112/67 03/06/24 17:15 35.2 C L 51 L 20 99 03/06/24 17:10 35.2 C L 51 L 20 03/06/24 17:00 35.2 C L 51 L 18 03/06/24 16:50 35.2 C L 51 L 19 03/06/24 16:46 134/71 03/06/24 16:46 35.2 C L 52 L 19 03/06/24 16:40 35.3 C L 52 L 19 03/06/24 16:35 35.3 C L 53 L 18 03/06/24 16:15 139/88 03/06/24 16:15 35.0 C L 66 18 03/06/24 16:10 35.6 C L 54 L 19 03/06/24 16:01 35.7 C L 55 L 19 03/06/24 16:00 134/76 03/06/24 15:59 35.7 C L 54 L 19 03/06/24 15:50 35.8 C L 55 L 19 03/06/24 15:45 126/75 03/06/24 15:45 35.8 C L 56 L 19 03/06/24 15:40 35.9 C L 56 L 20 03/06/24 15:30 36.0 C L 58 L 19 03/06/24 15:20 36.1 C L 58 L 20 03/06/24 15:14 78 03/06/24 15:10 36.1 C L 59 L 20 03/06/24 15:01 36.2 C L 58 L 20 100 Mechanical Vent 03/06/24 15:00 104/67 03/06/24 14:59 36.2 C L 58 L 20 100 Mechanical Vent 03/06/24 14:50 36.2 C L 60 20 100 Mechanical Vent 03/06/24 14:45 112/72 03/06/24 14:45 36.2 C L 60 20 03/06/24 14:41 36.2 C L 60 20 100 Mechanical Vent 03/06/24 14:32 36.3 C L 61 19 100 Mechanical Vent 03/06/24 14:30 119/76 03/06/24 14:29 36.3 C L 61 21 100 Mechanical Vent 03/06/24 14:20 36.3 C L 65 19 100 Mechanical Vent 03/06/24 14:15 163/88 H 03/06/24 14:11 36.3 C L 66 19 99 Mechanical Vent 03/06/24 14:10 36.3 C L 67 19 99 Mechanical Vent 03/06/24 14:05 36.3 C L 74 22 97 Mechanical Vent 03/06/24 13:50 40 03/06/24 13:45 66 22 97 50 03/06/24 13:43 36.7 C 64 21 97 Mechanical Vent 03/06/24 13:30 37.2 C 116 H 20 96 Mechanical Vent 03/06/24 13:21 37.3 C 87 20 92 Mechanical Vent 03/06/24 13:16 104/66 03/06/24 13:16 37.3 C 101 H 22 93 Mechanical Vent 03/06/24 13:11 37.3 C 112 H 21 96 Mechanical Vent 03/06/24 13:07 78/51 L 03/06/24 13:07 37.3 C 130 H 22 03/06/24 13:00 37.3 C 130 H 22 03/06/24 12:59 76/56 L 03/06/24 12:58 37.3 C 138 H 21 97 03/06/24 12:57 82/62 L 03/06/24 12:56 37.3 C 143 H 21 97 03/06/24 12:56 154 H 103/81 03/06/24 12:49 103/81 03/06/24 12:48 37.4 C 127 H 22 95 03/06/24 12:30 37.5 C 92 H 21 03/06/24 12:00 37.6 C H 96 H 17 03/06/24 11:45 159/111 H 03/06/24 11:45 37.7 C H 98 H 18 03/06/24 11:40 102 H 18 03/06/24 10:31 37.4 C 99 H 19 95 03/06/24 10:30 136/93 PG Care Time/CCT Total # of Minutes Spent Total Time Spent with Patient: Total time spent is greater than 50% in coordination of care (as documented) at patient's floor/unit and/or counseling patient: Coding Level of Care Code 05753 SUB INP/OBS CARE 350MIN Diagnoses Sepsis A41.9 Type 2 diabetes mellitus with hyperosmolar hyperglycemic state (HHS) E11.00 DKA (diabetic ketoacidosis) E11.10 Unresponsive state R41.89 Elevated troponin R79.89 Hypertension I10 ONEIL (acute kidney injury) N17.9 UTI (urinary tract infection) N39.0
--- NOTE | 2024-03-06 23:12 | Electrocardiogram Report ---
Test Reason : Blood Pressure : / mmHG Vent. Rate : 149 BPM Atrial Rate : 144 BPM P-R Int : 000 ms QRS Dur : 128 ms QT Int : 322 ms P-R-T Axes : 000 054 012 degrees QTc Int : 507 ms Atrial fibrillation with rapid ventricular response Right bundle branch block Abnormal ECG When compared with ECG of 05-MAR-2024 08:30, (unconfirmed) Atrial fibrillation has replaced Sinus rhythm ST less depressed in Anterior leads T wave inversion less evident in Inferior leads Confirmed by Karan Holman ([id number]) on 03/06/2024 11:12:32 PM Referred By: REFERRED SELF Confirmed By:Karan Holman
[2024-03-06] MEDS: AMIODARONE / D5W 360 MG/200 ML BAG IV SCH (23:35)
[2024-03-07 03:25] LABS: ANTI-Xa, UFH(UnfractionatedHep 0.46 IU/ml (0.3-0.7)
[2024-03-07 04:24] LABS: Hematocrit (blood only) 24.1 % (37.0-47.0); Hemoglobin 8.5 g/dl (12.0-16.0); Mean Corpuscular Hemoglobin 29.8 pg (25.0-34.0); Mean Corpuscular Hgb Conc 35.3 g/dL (32.0-36.0); Mean Corpuscular Volume 84.6 fL (80.0-100.0); Mean Platelet Volume 9.9 fL (9.4-12.4); Platelet Count 370 K/uL (130-400); RDW Standard Deviation 39.9 fL (36.4-46.3); Red Blood Count 2.85 M/uL (4.20-5.40); White Blood Count 26.89 K/ul (4.8-10.8)
[2024-03-07 04:43] LABS: Basophils # (auto) 0.04 K/uL (0.00-0.20); Basophils % (auto) 0.1 %; Eosinophils # (auto) 0.02 K/uL (0.00-0.50); Eosinophils % (auto) 0.1 %; Immature Granulocytes # (auto) 0.97 K/uL (0.01-0.20); Immature Granulocytes % (auto) 3.6 %; Lymphocytes # (auto) 3.89 K/uL (1.20-3.40); Lymphocytes % (auto) 14.5 %; Monocytes # (auto) 1.68 K/uL (0.11-0.59); Monocytes % (auto) 6.2 %; Neutrophils # (auto) 20.29 K/uL (1.40-6.50); Neutrophils % (auto) 75.5 %
[2024-03-07 05:28] LABS: iSTAT Allen Test Pass; iSTAT Art Bld Gas pCO2 Correct 32 mmHg (35-46); iSTAT Art Bld Gas pH Corrected 7.381 (7.35-7.45); iSTAT Arterial Blood Gas HCO3 19 meg/L (19-24); iSTAT Arterial Blood Gas pCO2 32 mmHg (35-46); iSTAT Arterial Blood Gas pH 7.38 (7.35-7.45); iSTAT Arterial Blood Gas pO2 66 mmHg (80-95); iSTAT Arterial Blood Gas pO2 C 65; iSTAT Carbon Dioxide 20 mmol/L (24-31); iSTAT FiO2 30 %; iSTAT Hematocrit 23 % (37-47); iSTAT Hemoglobin 7.8 g/dl (12.0-16.0); iSTAT Site R Radial; iSTAT Sodium 136 mmol/L (135-144)
--- NOTE | 2024-03-07 07:00 | XRay Report ---
XR chest 1V portable CLINICAL HISTORY: Respiratory failure. COMPARISON STUDY: Chest CT and chest radiograph March 06, 2024. FINDINGS: The tip of the endotracheal tube is 2.6 cm above the papo. Tip of nasogastric tube is bel ow the lower aspect of this image but at least within the proximal stomach. There is no pneumothorax. Cardiomediastinal silhouette is unremarkable. Small bilateral pleural effusions and bibasilar opacit ies, right greater than left, persists. There is mild interstitial thickening. IMPRESSION: 1. Satisfactory positioning of the endotracheal tube. 2. Persistent pulmonary edema with small bilateral pleural effusions and associated bibasilar opaciti es. ACT 112: Negative or not required by law. Electronically signed by: Roland Swan M.D. 03/07/2024 6:59 AM
[2024-03-07 07:30] LABS: BUN Creatinine Ratio 18.2 (10-20); Calcium 7.4 mg/dl (8.6-10.3); Creatinine Clr Calc Pharmacy 28.6 ml/min; Est GFR (African American) 33.2 ml/min; Est GFR (Non-African American) 28.6 ml/min; Potassium 3.3 mmol/L (3.5-5.1)
--- NOTE | 2024-03-07 07:59 | Electroencephalogram ---
EEG Procedure Note Date of Service March 07, 2024 Start / End Times Start Time: 609 End Time: [address] Lacey History 68-year-old with severe hyperglycemia and sepsis with subclinical status epilepticus March 06 now in continued unresponsive state. Home Medication List Medication Instructions Recorded Confirmed Type ascorbic acid (vitamin C) 250 mg 250 mg PO DAILY 12/14/19 03/05/24 History tablet OneTouch Verio test strips (blood #100 ea 05/28/23 09/29/23 Rx sugar diagnostic) buspirone 5 mg tablet 5 mg PO TID #90 tabs 05/28/23 03/05/24 Rx lancets 33 gauge (OneTouch Delica #100 ea 05/28/23 09/29/23 Rx Plus Lancet) pen needle, diabetic 32 gauge x #100 ea 05/28/23 03/05/24 Rx 5/32" (BD Ultra-Fine Snow Pen Needle) rosuvastatin 20 mg tablet (Crestor) 20 mg PO DAILY #30 tabs 06/25/23 03/05/24 Rx clotrimazole 1 % topical cream 1 applic topical BID #30 grams 07/30/23 03/05/24 Rx (Lotrimin AF (clotrimazole)) gabapentin 100 mg capsule 100 mg PO TID #90 caps 07/30/23 03/05/24 Rx metformin 500 mg tablet 500 mg PO BIDWMEAL 07/30/23 03/05/24 History sertraline 50 mg tablet 50 mg PO DAILY #30 tabs 08/13/23 03/05/24 Rx losartan 50 mg tablet 50 mg PO DAILY #90 tabs 09/18/23 03/05/24 Rx furosemide 20 mg tablet 0 mg PO DAILY 03/05/24 03/05/24 History insulin degludec 100 unit/mL (3 0 unit subcut DAILY 03/05/24 03/05/24 History mL) subcutaneous pen (Tresiba FlexTouch U-100 insulin) tirzepatide 2.5 mg/0.5 mL 0 mg subcut WK 03/05/24 03/05/24 History subcutaneous pen injector (Silvana) Inpatient Medication List Dextrose (Dextrose 50% 50 Ml Syringe) 25 - 50 ml IV UD PRN; Protocol PRN Reason: Hypoglycemia Protocol Stop: 04/04/24 09:03 Last Admin: 03/07/24 03:10 Dose: 25 ml Documented By: Admin: 03/05/24 22:28 Dose: 25 ml Documented By: Admin: 03/05/24 17:24 Dose: 25 ml Documented By: Admin: 03/05/24 17:05 Dose: 25 ml Documented By: LAF Insulin Human Regular 250 (units/ Sodium Chloride) 250 mls @ 0.6 mls/hr IV .Q24H [facility]; Protocol Stop: 04/04/24 09:14 Last Titration: 03/07/24 07:12 Dose: 0.6 units/hr, 0.6 mls/hr Documented By: EMANUEL Co-signed By: ESG Titration: 03/07/24 06:33 Dose: 0.6 units/hr, 0.6 mls/hr Documented By: ESG Co-signed By: VK Titration: 03/07/24 05:30 Dose: 0.7 units/hr, 0.7 mls/hr Documented By: ESG Co-signed By: VK Titration: 03/07/24 04:44 Dose: 0.7 units/hr, 0.7 mls/hr Documented By: ESG Co-signed By: VK Titration: 03/07/24 03:40 Dose: 0.7 units/hr, 0.7 mls/hr Documented By: ESG Co-signed By: VK Titration: 03/07/24 03:31 Dose: 0.7 units/hr, 0.7 mls/hr Documented By: ESG Co-signed By: AMW Titration: 03/07/24 03:05 Dose: 0 units/hr, 0 mls/hr Documented By: ESG Co-signed By: AMW Titration: 03/07/24 02:07 Dose: 1.2 units/hr, 1.2 mls/hr Documented By: ESG Co-signed By: VK Titration: 03/07/24 01:04 Dose: 1.5 units/hr, 1.5 mls/hr Documented By: ESG Co-signed By: VK Titration: 03/07/24 00:00 Dose: 1.5 units/hr, 1.5 mls/hr Documented By: ESG Co-signed By: VK Titration: 03/06/24 23:00 Dose: 1.9 units/hr, 1.9 mls/hr Documented By: ESG Co-signed By: VK Titration: 03/06/24 22:02 Dose: 1.9 units/hr, 1.9 mls/hr Documented By: VK Co-signed By: ESG Titration: 03/06/24 21:04 Dose: 1.9 units/hr, 1.9 mls/hr Documented By: VK Co-signed By: ESG Titration: 03/06/24 20:00 Dose: 2.4 units/hr, 2.4 mls/hr Documented By: ESG Co-signed By: VK Titration: 03/06/24 19:06 Dose: 2 units/hr, 2 mls/hr Documented By: VK Co-signed By: LAF Titration: 03/06/24 18:00 Dose: 2 units/hr, 2 mls/hr Documented By: LAF Co-signed By: WRS Titration: 03/06/24 17:00 Dose: 2 units/hr, 2 mls/hr Documented By: LAF Co-signed By: WRS Titration: 03/06/24 16:00 Dose: 2 units/hr, 2 mls/hr Documented By: LAF Co-signed By: WRS Titration: 03/06/24 15:50 Dose: 2 units/hr, 2 mls/hr Documented By: LAF Co-signed By: WRS Admin: 03/06/24 11:58 Dose: Not Given Documented By: LAF Co-signed By: WRS Titration: 03/06/24 08:30 Dose: 0 units/hr, 0 mls/hr Documented By: LAF Co-signed By: WRS Titration: 03/06/24 07:08 Dose: 2 units/hr, 2 mls/hr Documented By: ESG Co-signed By: LAF Titration: 03/06/24 06:09 Dose: 2 units/hr, 2 mls/hr Documented By: ESG Co-signed By: TP Titration: 03/06/24 05:14 Dose: 1.7 units/hr, 1.7 mls/hr Documented By: ESG Co-signed By: TP Titration: 03/06/24 04:00 Dose: 1.7 units/hr, 1.7 mls/hr Documented By: ESG Co-signed By: TP Titration: 03/06/24 03:01 Dose: 1.7 units/hr, 1.7 mls/hr Documented By: ESG Co-signed By: AMW Titration: 03/06/24 02:05 Dose: 1.4 units/hr, 1.4 mls/hr Documented By: ESG Co-signed By: AMW Titration: 03/06/24 01:07 Dose: 1.4 units/hr, 1.4 mls/hr Documented By: ESG Co-signed By: AMW Titration: 03/05/24 22:45 Dose: 1.4 units/hr, 1.4 mls/hr Documented By: ESG Co-signed By: TP Titration: 03/05/24 22:00 Dose: 0 units/hr, 0 mls/hr Documented By: ESG Co-signed By: TP Titration: 03/05/24 21:03 Dose: 2.4 units/hr, 2.4 mls/hr Documented By: ESG Co-signed By: AMW Titration: 03/05/24 20:12 Dose: 3 units/hr, 3 mls/hr Documented By: ESG Co-signed By: TP Titration: 03/05/24 19:19 Dose: 3.7 units/hr, 3.7 mls/hr Documented By: ESG Co-signed By: TP Titration: 03/05/24 19:12 Dose: 3.7 units/hr, 3.7 mls/hr Documented By: ESG Co-signed By: LAF Titration: 03/05/24 15:36 Dose: 6.2 units/hr, 6.2 mls/hr Documented By: LAF Co-signed By: WRS Titration: 03/05/24 14:15 Dose: 7.8 units/hr, 7.8 mls/hr Documented By: LAF Co-signed By: WRS Titration: 03/05/24 13:00 Dose: 7.8 units/hr, 7.8 mls/hr Documented By: LAF Co-signed By: ROBYNS Admin: 03/05/24 09:26 Dose: 6.5 units/hr, 6.5 mls/hr Documented By: MNE Co-signed By: NOREEN Piperacillin Sod/Tazobactam (Sod 4.5 gm/ Dextrose) 100 mls @ 25 mls/hr IV Q8H [facility]; Protocol Stop: 03/07/24 11:59 Last Infusion: 03/07/24 06:08 Dose: Infused Documented By: Infusion: 03/07/24 03:40 Dose: 25 mls/hr Documented By: Admin: 03/07/24 02:06 Dose: 25 mls/hr Documented By: Infusion: 03/06/24 22:41 Dose: Infused Documented By: Admin: 03/06/24 18:38 Dose: 25 mls/hr Documented By: Infusion: 03/06/24 16:41 Dose: Infused Documented By: Admin: 03/06/24 11:54 Dose: 25 mls/hr Documented By: Infusion: 03/06/24 06:09 Dose: Infused Documented By: Infusion: 03/06/24 05:14 Dose: 25 mls/hr Documented By: Infusion: 03/06/24 03:01 Dose: 25 mls/hr Documented By: Infusion: 03/06/24 02:05 Dose: 25 mls/hr Documented By: Admin: 03/06/24 01:41 Dose: 25 mls/hr Documented By: Infusion: 03/05/24 23:00 Dose: Infused Documented By: Infusion: 03/05/24 19:56 Dose: 25 mls/hr Documented By: Admin: 03/05/24 18:35 Dose: 25 mls/hr Documented By: LAF Acetaminophen (Ofirmev) 1,000 mg in 100 mls @ 400 mls/hr IV Q8H PRN PRN Reason: Fever Stop: 03/08/24 11:52 Last Infusion: 03/06/24 04:00 Dose: Infused Documented By: Admin: 03/06/24 03:44 Dose: 400 mls/hr Documented By: ESG Lacosamide 100 mg/ Sodium (Chloride) 60 mls @ 120 mls/hr IV Q12H [facility] Stop: 04/05/24 18:59 Last Infusion: 03/07/24 07:26 Dose: Infused Documented By: Admin: 03/07/24 06:40 Dose: 120 mls/hr Documented By: Infusion: 03/06/24 20:58 Dose: Infused Documented By: Admin: 03/06/24 20:28 Dose: 120 mls/hr Documented By: PRAMOD Levetiracetam 750 mg/ Sodium (Chloride) 107.5 mls @ 440 mls/hr IV Q12H [facility] Stop: 04/05/24 17:59 Last Infusion: 03/07/24 06:34 Dose: Infused Documented By: Admin: 03/07/24 06:15 Dose: 440 mls/hr Documented By: Infusion: 03/06/24 19:15 Dose: Infused Documented By: Admin: 03/06/24 18:05 Dose: 440 mls/hr Documented By: GOSIA Propofol (Diprivan) 1,000 mg in 100 mls @ 0 mls/hr IV .Q0M [facility]; Protocol Stop: 03/09/24 13:44 Last Admin: 03/07/24 07:27 Dose: Not Given Documented By: Titration: 03/07/24 07:12 Dose: 0 mcg/kg/min, 0 mls/hr Documented By: EMANUEL Co-signed By: ESG Titration: 03/07/24 04:20 Dose: 0 mcg/kg/min, 0 mls/hr Documented By: Admin: 03/06/24 22:01 Dose: 15 mcg/kg/min, 5.6 mls/hr Documented By: PRAMOD Co-signed By: ESG Titration: 03/06/24 22:01 Dose: Infused Documented By: PRAMOD Co-signed By: ESG Titration: 03/06/24 19:06 Dose: 15 mcg/kg/min, 5.6 mls/hr Documented By: VK Co-signed By: LAF Admin: 03/06/24 15:16 Dose: 20 mcg/kg/min, 7.4 mls/hr Documented By: GOSIA Co-signed By: KAYA Phenylephrine HCl (Phenylephrine/Nss) 25 mg in 250 mls @ 18.54 mls/hr IV .[id number] [facility]; Protocol Stop: 04/05/24 13:35 Last Titration: 03/07/24 07:12 Dose: 0.5 mcg/kg/min, 18.5 mls/hr Documented By: EMANUEL Co-signed By: ESG Titration: 03/07/24 02:07 Dose: 0.7 mcg/kg/min, 26 mls/hr Documented By: ESG Co-signed By: PRAMOD Titration: 03/06/24 22:49 Dose: 0.5 mcg/kg/min, 18.5 mls/hr Documented By: STEVEN Co-signed By: VK Admin: 03/06/24 22:39 Dose: 0.3 mcg/kg/min, 11.1 mls/hr Documented By: STEVEN Co-signed By: PRAMOD Titration: 03/06/24 22:39 Dose: Infused Documented By: STEVEN Co-signed By: PRAMOD Titration: 03/06/24 21:45 Dose: 0.5 mcg/kg/min, 18.5 mls/hr Documented By: STEVEN Co-signed By: PRAMOD Titration: 03/06/24 20:34 Dose: 0.3 mcg/kg/min, 11.1 mls/hr Documented By: STEVEN Co-signed By: PRAMOD Titration: 03/06/24 19:06 Dose: 0.5 mcg/kg/min, 18.5 mls/hr Documented By: PRAMOD Co-signed By: GOSIA Admin: 03/06/24 15:16 Dose: 0.5 mcg/kg/min, 18.5 mls/hr Documented By: GOSIA Co-signed By: KAYA Amiodarone HCl/Dextrose (Nexterone / D5w) 360 mg in 200 mls @ 16.667 mls/hr IV .Q12H [facility] Stop: 04/05/24 19:44 Last Admin: 03/06/24 23:35 Dose: Not Given Documented By: PRAMOD Heparin Sodium/Dextrose (Heparin Sodium/Dextrose) 25,000 units in 500 mls @ 22 mls/hr IV .H19O09M [facility]; Protocol Stop: 04/05/24 19:29 Last Titration: 03/07/24 07:12 Dose: 1,100 units/hr, 22 mls/hr Documented By: EMANUEL Co-signed By: STEVEN Admin: 03/06/24 20:27 Dose: 1,100 units/hr, 22 mls/hr Documented By: PRAMOD Co-signed By: STEVEN Insulin Aspart (Insulin Aspart Per Unit Charge) 0 units SC ACHS [facility] Stop: 04/04/24 11:29 Last Admin: 03/06/24 20:28 Dose: Not Given Documented By: PRAMOD Co-signed By: STEVEN Admin: 03/06/24 18:17 Dose: Not Given Documented By: GOSIA Co-signed By: KAYA Admin: 03/06/24 14:02 Dose: Not Given Documented By: GOSIA Co-signed By: KAYA Admin: 03/06/24 11:58 Dose: Not Given Documented By: GOSIA Co-signed By: KAYA Admin: 03/05/24 21:04 Dose: Not Given Documented By: STEVEN Co-signed By: TUCKER Admin: 03/05/24 15:45 Dose: Not Given Documented By: Admin: 03/05/24 12:32 Dose: Not Given Documented By: GOSIA Discontinued Medications Amiodarone HCl/Dextrose (Amiodarone 150mg / 100ml D5w) Confirm Administered Dose 150 mg IV .STK-MED ONE Stop: 03/06/24 13:06 Last Admin: 03/06/24 13:05 Dose: 150 mg Documented By: GOSIA Co-signed By: KAYA Amiodarone HCl/Dextrose (Amiodarone 360mg / 200ml D5w) Confirm Administered Dose 360 mg IV .STK-MED ONE Stop: 03/06/24 13:16 Last Admin: 03/06/24 13:15 Dose: 360 mg Documented By: GOSIA Co-signed By: KAYA Etomidate (Etomidate 2 Mg/Ml 20 Ml Vial) 20 mg IV NOW ONE Stop: 03/06/24 13:37 Last Admin: 03/06/24 13:05 Dose: 20 mg Documented By: GOSIA Furosemide (Furosemide 40 Mg/4 Ml Vial) 40 mg IV ONE ONE Stop: 03/06/24 08:34 Last Admin: 03/06/24 08:39 Dose: 40 mg Documented By: GOSIA Furosemide (Furosemide 40 Mg/4 Ml Vial) Confirm Administered Dose 40 mg IV .STK- MED ONE Stop: 03/06/24 08:36 Last Admin: 03/06/24 08:42 Dose: Not Given Documented By: GOSIA Heparin Sodium (Porcine) (Heparin Sod 5,000 Unit/0.5 Ml Vial) 5,000 units SQ BID [facility] Stop: 04/04/24 20:59 Last Admin: 03/06/24 11:57 Dose: Not Given Documented By: Admin: 03/05/24 21:06 Dose: 5,000 units Documented By: STEVEN Heparin Sodium/Dextrose (Heparin Iv Adult Wt-Based Standard *No* Initial Bolus Protocol) 1 each IV ONE STA; Protocol Stop: 03/06/24 19:09 Last Admin: 03/06/24 20:27 Dose: 1 each Documented By: PRAMOD Heparin Sodium/Dextrose (Heparin 14044 Unit/500 Ml D5w) Confirm Administered Dose 25,000 units IV .STK-MED ONE Stop: 03/06/24 20:05 Last Admin: 03/06/24 20:27 Dose: Not Given Documented By: PRAMOD Sodium Chloride (Nss) 2,000 mls @ 999 mls/hr IV .Q2H1M [facility] Stop: 03/05/24 10:15 Last Infusion: 03/05/24 13:31 Dose: Infused Documented By: Admin: 03/05/24 08:31 Dose: 999 mls/hr Documented By: NOREEN Acetaminophen (Ofirmev) 1,000 mg in 100 mls @ 400 mls/hr IV NOW STA Stop: 03/05/24 08:29 Last Infusion: 03/05/24 08:42 Dose: Infused Documented By: Admin: 03/05/24 08:27 Dose: 400 mls/hr Documented By: NOREEN Cefepime HCl (Maxipime) 2,000 mg in 20 mls @ 5 mls/min IV NOW STA; Protocol Stop: 03/05/24 08:20 Last Admin: 03/05/24 08:34 Dose: 5 mls/min Documented By: NOREEN Vancomycin HCl 1,250 mg/ (Sodium Chloride) 525 mls @ 200 mls/hr IV NOW ONE Stop: 03/05/24 10:46 Last Infusion: 03/05/24 13:31 Dose: Infused Documented By: Admin: 03/05/24 08:54 Dose: 200 mls/hr Documented By: HERIBERTO Parenteral Electrolytes (Plasma-Lyte A Ph 7.4) 1,000 mls @ 999 mls/hr IV .Q1H1M ONE Stop: 03/05/24 12:00 Last Infusion: 03/05/24 13:31 Dose: Infused Documented By: Admin: 03/05/24 12:04 Dose: 999 mls/hr Documented By: GOSIA Piperacillin Sod/Tazobactam (Sod 4.5 gm/ Dextrose) 100 mls @ 200 mls/hr IV ONE ONE; Protocol Stop: 03/05/24 12:29 Last Infusion: 03/05/24 13:30 Dose: Infused Documented By: Admin: 03/05/24 12:07 Dose: 200 mls/hr Documented By: LAF Lactated Ringer's (Lr) 1,000 mls @ 999 mls/hr IV .Q1H1M ONE Stop: 03/05/24 12:57 Last Infusion: 03/05/24 15:57 Dose: Infused Documented By: Admin: 03/05/24 13:00 Dose: 999 mls/hr Documented By: LAF Parenteral Electrolytes (Plasma-Lyte A Ph 7.4) 1,000 mls @ 125 mls/hr IV .Q8H [facility] Stop: 04/04/24 12:44 Last Infusion: 03/05/24 15:57 Dose: Infused Documented By: Admin: 03/05/24 13:01 Dose: 125 mls/hr Documented By: LAF Potassium Chloride 20 meq/ (Parenteral Electrolytes) 1,010 mls @ 125 mls/hr IV .Q8H5M [facility] Stop: 04/04/24 14:29 Last Infusion: 03/05/24 19:56 Dose: Infused Documented By: Admin: 03/05/24 14:43 Dose: 125 mls/hr Documented By: LAF Potassium Chloride (K Ash / Wtr) 10 meq in 100 mls @ 100 mls/hr IV Q1H [facility] Stop: 03/05/24 20:29 Last Infusion: 03/05/24 20:53 Dose: Infused Documented By: Admin: 03/05/24 19:56 Dose: 100 mls/hr Documented By: Infusion: 03/05/24 19:41 Dose: Infused Documented By: Admin: 03/05/24 18:41 Dose: 100 mls/hr Documented By: LAF Potassium Chloride/Dextrose/Sod Cl (D5w And 1/2nss + 20meq Kcl) 20 meq in 1,000 mls @ 125 mls/hr IV .Q8H [facility] Stop: 04/04/24 18:29 Last Infusion: 03/06/24 12:33 Dose: Infused Documented By: Infusion: 03/06/24 06:35 Dose: 125 mls/hr Documented By: Infusion: 03/06/24 06:09 Dose: 200 mls/hr Documented By: Infusion: 03/06/24 05:14 Dose: 200 mls/hr Documented By: Admin: 03/06/24 05:03 Dose: 200 mls/hr Documented By: Infusion: 03/06/24 05:03 Dose: Infused Documented By: Infusion: 03/06/24 04:00 Dose: 200 mls/hr Documented By: Infusion: 03/06/24 03:44 Dose: 0 mls/hr Documented By: Infusion: 03/06/24 03:01 Dose: 200 mls/hr Documented By: Infusion: 03/06/24 02:05 Dose: 200 mls/hr Documented By: Admin: 03/05/24 23:56 Dose: 200 mls/hr Documented By: Infusion: 03/05/24 23:30 Dose: Infused Documented By: Infusion: 03/05/24 23:00 Dose: 200 mls/hr Documented By: Infusion: 03/05/24 21:26 Dose: 200 mls/hr Documented By: Infusion: 03/05/24 21:10 Dose: 125 mls/hr Documented By: Infusion: 03/05/24 19:56 Dose: 200 mls/hr Documented By: Admin: 03/05/24 18:35 Dose: 200 mls/hr Documented By: GOSIA Magnesium Sulfate/Dextrose (Magnesium Sulfate / D5w) 1 gm in 100 mls @ 50 mls/hr IV Q2H [facility] Stop: 03/06/24 01:29 Last Infusion: 03/06/24 02:05 Dose: Infused Documented By: Admin: 03/05/24 23:30 Dose: 50 mls/hr Documented By: Infusion: 03/05/24 23:30 Dose: Infused Documented By: Infusion: 03/05/24 23:00 Dose: 50 mls/hr Documented By: Admin: 03/05/24 21:29 Dose: 50 mls/hr Documented By: ESG Vancomycin HCl 1,000 mg/ (Sodium Chloride) 270 mls @ 200 mls/hr IV NOW ONE Stop: 03/06/24 00:50 Last Infusion: 03/06/24 01:41 Dose: Infused Documented By: Admin: 03/05/24 23:55 Dose: 200 mls/hr Documented By: ESG Levetiracetam 1,000 mg/ Sodium (Chloride) 110 mls @ 440 mls/hr IV NOW STA Stop: 03/06/24 10:47 Last Infusion: 03/06/24 12:33 Dose: Infused Documented By: Admin: 03/06/24 12:09 Dose: 440 mls/hr Documented By: LAF Levetiracetam 500 mg/ Sodium (Chloride) 105 mls @ 420 mls/hr IV Q12H [facility] Stop: 04/05/24 10:29 Last Infusion: 03/06/24 12:34 Dose: Infused Documented By: Admin: 03/06/24 11:50 Dose: 420 mls/hr Documented By: GOSIA Lorazepam 2 mg/ Syringe 2 mls @ 2 mls/min IV NOW STA Stop: 03/06/24 12:16 Last Admin: 03/06/24 12:20 Dose: Not Given Documented By: LAF Lacosamide 200 mg/ Sodium (Chloride) 70 mls @ 140 mls/hr IV ONE ONE Stop: 03/06/24 13:14 Last Infusion: 03/06/24 16:43 Dose: Infused Documented By: Admin: 03/06/24 12:45 Dose: 140 mls/hr Documented By: GOSIA Lorazepam 2 mg/ Syringe 2 mls @ 2 mls/min IV NOW STA Stop: 03/06/24 12:33 Last Admin: 03/06/24 12:32 Dose: 2 mls/min Documented By: GOSIA Lactated Ringer's (Lr) 500 mls @ 999 mls/hr IV .Q31M ONE Stop: 03/06/24 13:30 Last Infusion: 03/06/24 16:43 Dose: Infused Documented By: Admin: 03/06/24 13:00 Dose: 999 mls/hr Documented By: LAF Amiodarone HCl/Dextrose (Nexterone / D5w) 150 mg in 100 mls @ 600 mls/hr IV NOW STA Stop: 03/06/24 13:45 Last Admin: 03/06/24 15:15 Dose: Not Given Documented By: LAF Amiodarone HCl/Dextrose (Nexterone / D5w) 360 mg in 200 mls @ 33.333 mls/hr IV ONE ONE Stop: 03/06/24 19:45 Last Infusion: 03/06/24 16:00 Dose: 0 mg/min, 0 mls/hr Documented By: GOSIA Co-signed By: STEVEN Admin: 03/06/24 15:17 Dose: 0.5 mg/min, 16.7 mls/hr Documented By: GOSIA Co-signed By: KAYA Calcium Gluconate () 1,000 mg in 60 mls @ 240 mls/hr IV NOW STA Stop: 03/06/24 15:17 Last Infusion: 03/06/24 16:43 Dose: Infused Documented By: Admin: 03/06/24 15:23 Dose: 240 mls/hr Documented By: GOSIA Insulin Human Regular (Novolin-R Bolus From Bag) 6 units IV ONE ONE Stop: 03/05/24 09:31 Last Admin: 03/05/24 09:28 Dose: 6 units Documented By: HERIBERTO Co-signed By: NOREEN Lorazepam (Lorazepam 2 Mg/1 Ml Vial) Confirm Administered Dose 2 mg .ROUTE .STK- MED ONE Stop: 03/06/24 12:15 Last Admin: 03/06/24 12:20 Dose: 2 mg Documented By: GOSIA Metoprolol Tartrate (Metoprolol Tartrate 1 Mg/Ml Vial) Confirm Administered Dose 5 mg IV .STK-MED ONE Stop: 03/06/24 12:48 Last Admin: 03/06/24 12:57 Dose: Not Given Documented By: GOSIA Metoprolol Tartrate (Metoprolol Tartrate 1 Mg/Ml Vial) 2.5 mg IV NOW STA Stop: 03/06/24 12:51 Last Admin: 03/06/24 12:56 Dose: 2.5 mg Documented By: GOSIA Miscellaneous (Hhs Goal Range 250-350 Mg/Dl) 1 each N/A ONE ONE Stop: 03/05/24 09:05 Last Admin: 03/05/24 09:36 Dose: Not Given Documented By: HERIBERTO Larson (Stat Iv Infusion Titration Per Protocol) 1 each N/A NOW STA Stop: 03/05/24 09:05 Last Admin: 03/05/24 09:36 Dose: Not Given Documented By: HERIBERTO Fernandocellaneous (Pending D5 1/2ns+20meq Kcl Ivf) 1 each N/A Q2H [facility] Stop: 04/04/24 10:44 Last Admin: 03/05/24 17:25 Dose: Not Given Documented By: Admin: 03/05/24 17:25 Dose: Not Given Documented By: Admin: 03/05/24 17:25 Dose: Not Given Documented By: Admin: 03/05/24 15:46 Dose: Not Given Documented By: GOSIA Miscellaneous (Dka Goal Range 150-250 Mg/Dl) 1 each N/A ONE ONE Stop: 03/05/24 10:45 Last Admin: 03/05/24 13:00 Dose: 1 each Documented By: GOSIA Miscellaneous (Rapid Sequence Induction Bag) Confirm Administered Dose 1 each N/A .STK-MED ONE Stop: 03/06/24 13:27 Last Admin: 03/06/24 13:26 Dose: 1 each Documented By: GOSIA Ondansetron HCl (Ondansetron Inj 2 Mg/Ml 2 Ml Vial) 4 mg IV NOW STA Stop: 03/05/24 08:14 Last Admin: 03/05/24 08:26 Dose: 4 mg Documented By: NOREEN Phenylephrine HCl (Phenylephrine Hcl 25 Mg/250 Ml Nss) Confirm Administered Dose 25 mg IV .STK-MED ONE Stop: 03/06/24 13:06 Last Admin: 03/06/24 15:14 Dose: 25 mg Documented By: GOSIA Co-signed By: KAYA Description This is a 21 electrode EEG with a single channel dedicated to limited EKG. The electrodes were placed in accordance with the International 10-20 system. Interpretation The predominant background activity consists of an irregular 8 hz activity, of up to 30 mV in amplitude,seen symmetrically distributed over the posterior head regions bilaterally. This activity did not have specific attenuation with alerting procedures. Throughout the recording, was a presence of higher amplitude slower activity lasting 200 to 400 ms followed by a lower amplitude. Of approximately 1 to 2 seconds of a background with a very low amplitude 8 Hz activity. It was not regular and there was always variation in the periodicity of this repeated "burst/suppression" like activity. There were no clinical accompaniments. At 1 point in the recording there was a 22 seconds episode of a sharply contorted, left-sided, 6 Hz regular waveform of 50 to 60 V in amplitude. There was no clinical accompaniment with this left sided temporoparietal occipital rhythm, which appeared potentially epileptogenic. There were no other potentially epileptogenic discharges seen throughout the recording. Photic stimulation was performed and elicited no change in the background activity and no abnormal responses were seen. Hyperventilation was not performed. A minimal amount of muscle and movement artifact activity contaminated the recording and did not hinder interpretation to any significant degree. In summary, this EEG was abnormal showing mild generalized slowing with a pattern reminiscent of "burst/suppression". There was a 22-second left-sided burst consistent with a potentially epileptogenic discharge and without clinical accompaniment. Clinical Correlation This potential epileptogenic discharges noted had no clinical accompaniment. The background had no focal abnormalities but did have an abnormal rhythm consistent with encephalopathy. [facility] EEG Procedure Codes Indication for Procedure (1) Hyperosmolar hyperglycemic state (HHS): (2) Non-convulsive status epilepticus:
--- NOTE | 2024-03-07 08:13 | Critical Care Progress Note ---
Date of Service March 07, 2024 Assessment & Plan (1) Hyperosmolar hyperglycemic state (HHS): (2) Lactic acidosis: (3) Complicated UTI (urinary tract infection): (4) Severe sepsis: (5) Elevated troponin: (6) ONEIL (acute kidney injury): (7) Acute metabolic encephalopathy: (8) Pulmonary edema: Plan Impression: 68-year-old female with a history of medical noncompliance, poorly controlled diabetes mellitus, hypertension and right bundle branch block who presented with altered mental status and severe HHS/DKA. 24-hour events: Patient transferred to the ICU yesterday. EEG showed nonconvulsive status. Patient was eventually intubated due to altered mental status and loaded on Keppra and Vimpat. EEG this morning showed potential burst suppression with small continued focus of potential epileptogenic focus in the left hemisphere. Narrow complex tachycardia status post attempted cardioversion x 2. Started on amiodarone. Now appears to be in sinus. Continue amiodarone. Currently on heparin infusion. Recommendations: 1. Neurologic: Nonconvulsive status. Currently on Vimpat and Keppra. Discussed with neurology this morning. Has persistent probable left eliptogenic focus but has been off of propofol. Will adjust Keppra dosing and continue Vimpat. Monitor today in the hopes that some of her cortical irritability may have been related to osmotic shifts and electrolyte disturbances which should correct over the next 24 hours. Repeat EEG in the a.m.. Try and keep off propofol and reassess. 2. Cardiovascular: Septic shock. Echocardiogram with preserved ejection fraction. Patient received about 12 L of crystalloid in the last 24 hours and is 8 L positive. Had narrow complex tachycardia yesterday status post attempted cardioversion and initiation of amiodarone now in normal sinus. Lactate improved, will recheck today. May benefit from additional crystalloid 3. Pulmonary: Intubated due to altered mental status. Gas exchange adequate. Keep intubated until neurological issues resolved 4. ID: Urine growing 2 species of E. coli which are pansensitive. Likely urosepsis. Day #2 Zosyn. De-escalated to Rocephin. 5. Renal: Acute kidney injury: Baseline creatinine less than 1. Suspect component of ATN due to hypoperfusion as well as septic shock. Acid-base status, electrolytes, and volume status are stable. Continue to follow clinically. Will see how she responds to additional crystalloid. 6. GI: Keep n.p.o. for now until insulin drip is off 7. Endocrine: Severe DKA/HNK. Continue insulin infusion for now. Maintain glucose around 250-300. 8. Heme-onc: Anemia with leukocytosis. Suspect related to infection. No evidence of acute blood loss. No indication for transfusion currently. Patient is critically ill with multiorgan system dysfunction/failure. She is a significant probability of clinical deterioration and/or . Total time for 75 minutes in critical care time was spent in evaluation management and coordination of care for this complex patient including discussion with multiple consultants and discussion on multidisciplinary rounds. Family will be updated when available. Admission and Anticipated Discharge Date Admission Date: March 05, 2024 Subjective Patient is intubated and sedated Review of Systems Review of Systems: Unobtainable due to endotracheal tube Physical Exam Constitutional: WD/WN, vitals as above + mechanically ventilated Neck: trachea midline, no thyromegaly Respiratory: normal respiratory effort, lungs clear to auscultation Cardiovascular: RRR, no murmur, no edema Gastrointestinal (Abdomen): normal bowel sounds, soft, nontender, no hepatosplenomegaly Musculoskeletal: Extremities: extremities normal to inspection Skin: no rashes, warm and dry Neurologic: Nonfocal exam Lymphatic: no cervical lymphadenopathy Results & Data Results & Data Vital Signs (Past 12 Hours) Vital Signs Temp Pulse Resp BP Pulse Ox O2 Del Method FiO2 03/07/24 07:29 60 18 99 30 03/07/24 05:40 36.8 C 62 20 99 03/07/24 05:30 36.8 C 61 20 99 03/07/24 05:20 36.8 C 62 18 97 03/07/24 05:15 126/75 03/07/24 05:15 36.8 C 61 20 97 03/07/24 05:13 36.8 C 61 18 96 03/07/24 05:00 36.9 C 63 23 93 03/07/24 05:00 118/70 03/07/24 04:50 36.9 C 67 25 H 91 03/07/24 04:40 36.9 C 62 25 H 93 03/07/24 04:30 36.9 C 64 24 92 03/07/24 04:20 37.0 C 54 L 18 100 03/07/24 04:10 37.0 C 54 L 18 117/64 100 03/07/24 04:00 37.0 C 55 L 19 117/64 03/07/24 04:00 30 03/07/24 03:00 37.3 C 56 L 19 100 03/07/24 03:00 120/69 03/07/24 03:00 37.2 C 55 L 18 120/69 100 Mechanical Vent 03/07/24 02:30 37.3 C 57 L 19 100 03/07/24 02:30 111/65 03/07/24 02:23 60 20 100 30 03/07/24 02:00 37.4 C 58 L 18 95/59 L 100 Mechanical Vent 30 03/07/24 00:00 37.5 C 64 19 92/57 L 100 Mechanical Vent 30 03/07/24 00:00 30 03/07/24 00:00 67 03/06/24 23:20 67 22 100 30 03/06/24 23:00 37.3 C 65 19 92/56 L 100 Mechanical Vent 30 03/06/24 22:00 37 C 67 20 93/55 L 100 Mechanical Vent 40 03/06/24 21:00 36.2 C L 64 20 88/56 L 100 Mechanical Vent 40 03/06/24 20:23 62 20 99 40 Critical Care Results & Data Vital Signs (Past 12 Hours) Vital Signs Temp Pulse Resp BP Pulse Ox O2 Del Method FiO2 03/07/24 07:29 60 18 99 30 03/07/24 05:40 36.8 C 62 20 99 03/07/24 05:30 36.8 C 61 20 99 03/07/24 05:20 36.8 C 62 18 97 03/07/24 05:15 126/75 03/07/24 05:15 36.8 C 61 20 97 03/07/24 05:13 36.8 C 61 18 96 03/07/24 05:00 36.9 C 63 23 93 03/07/24 05:00 118/70 03/07/24 04:50 36.9 C 67 25 H 91 03/07/24 04:40 36.9 C 62 25 H 93 03/07/24 04:30 36.9 C 64 24 92 03/07/24 04:20 37.0 C 54 L 18 100 03/07/24 04:10 37.0 C 54 L 18 117/64 100 03/07/24 04:00 37.0 C 55 L 19 117/64 03/07/24 04:00 30 03/07/24 03:00 37.3 C 56 L 19 100 03/07/24 03:00 120/69 03/07/24 03:00 37.2 C 55 L 18 120/69 100 Mechanical Vent 03/07/24 02:30 37.3 C 57 L 19 100 03/07/24 02:30 111/65 03/07/24 02:23 60 20 100 30 03/07/24 02:00 37.4 C 58 L 18 95/59 L 100 Mechanical Vent 30 03/07/24 00:00 37.5 C 64 19 92/57 L 100 Mechanical Vent 30 03/07/24 00:00 30 03/07/24 00:00 67 03/06/24 23:20 67 22 100 30 03/06/24 23:00 37.3 C 65 19 92/56 L 100 Mechanical Vent 30 03/06/24 22:00 37 C 67 20 93/55 L 100 Mechanical Vent 40 03/06/24 21:00 36.2 C L 64 20 88/56 L 100 Mechanical Vent 40 Lab & Micro Results (Past 24 Hours) RBC 2.85 M/uL (4.20-5.40) L 03/07/24 WBC 26.89 K/ul (4.8-10.8) H 03/07/24 Hgb 8.5 g/dl (12.0-16.0) L 03/07/24 Hct 24.1 % (37.0-47.0) L 03/07/24 MCV 84.6 fL (80.0-100.0) 03/07/24 MCH 29.8 pg (25.0-34.0) 03/07/24 MCHC 35.3 g/dL (32.0-36.0) 03/07/24 RDW Standard Deviation 39.9 fL (36.4-46.3) 03/07/24 RDW Coefficient of Variation 13.0 % (11.5-14.5) 03/07/24 Plt Count 370 K/uL (130-400) 03/07/24 MPV 9.9 fL (9.4-12.4) 03/07/24 Neutrophils (%) (Auto) 75.5 % 03/07/24 Lymphocytes (%) (Auto) 14.5 % 03/07/24 Monocytes # (Auto) 1.68 K/uL (0.11-0.59) H 03/07/24 Eosinophils # (Auto) 0.02 K/uL (0.00-0.50) 03/07/24 Immature Granulocyte % (Auto) 3.6 % 03/07/24 Neutrophils # (Auto) 20.29 K/uL (1.40-6.50) H 03/07/24 Lymphocytes # (Auto) 3.89 K/uL (1.20-3.40) H 03/07/24 Monocytes # (Auto) 1.68 K/uL (0.11-0.59) H 03/07/24 Eosinophils # (Auto) 0.02 K/uL (0.00-0.50) 03/07/24 Basophils # (Auto) 0.04 K/uL (0.00-0.20) 03/07/24 Immature Granulocyte # (Auto) 0.97 K/uL (0.01-0.20) H 03/07 Polychromasia 1+ 03/06/24 Echinocytes 1+ 03/06/24 Na 137 mmol/L (136-145) 03/07/24 K 3.3 mmol/L (3.5-5.1) L 03/07/24 Cl 106 mmol/L (98-107) 03/07/24 CO2 23 mmol/L (21-32) 03/07/24 Anion Gap 8 (3-11) 03/07/24 BUN 33 mg/dl (6-23) H 03/07/24 Creatinine 1.81 mg/dl (0.6-1.2) H 03/07/24 Estimated GFR ( Amer) 33.2 ml/min 03/07/24 Estimated GFR (Non-Af Amer) 28.6 ml/min 03/07/24 BUN/Creatinine Ratio 18.2 (10-20) 03/07/24 Glu 229 mg/dl (70-99(Fasting)) H 03/07/24 Ca 7.4 mg/dl (8.6-10.3) L 03/07/24 Phosphorus Level 3.9 mg/dl (2.5-4.9) 03/07/24 Mg 2.1 mg/dl (1.7-2.4) 03/06/24 13:02 Calcium Level 7.4 mg/dl (8.6-10.3) L 03/07/24 06:34 Jacob Test Pass 03/07/24 05:13 Microbiology 03/05/24 Unknown Urine Culture - Preliminary Urine,Clean Catch Escherichia coli Escherichia coli#2 03/05/24 08:20 Aerobic Blood Culture - Preliminary Blood No growth in Aerobic bottle after 24 hours. Anaerobic Blood Culture - Preliminary No growth in Anaerobic bottle after 24 hours. 03/05/24 08:31 Aerobic Blood Culture - Preliminary Blood No growth in Aerobic bottle after 24 hours. Anaerobic Blood Culture - Preliminary No growth in Anaerobic bottle after 24 hours. Diagnostic Findings (Past 24 Hours) Head CT 03/06/24 09:[address] DOSE: HISTORY: Change in mental status. possible stroke TECHNIQUE: Multiaxial CT images of the head were performed without the use of intravenous contrast. Automated exposure control was utilized for this study. A dose lowering technique was utilized adhering to the principles of ALARA. Comparison: Head CT 03/05/2024. Findings: The paranasal sinuses and mastoid air cells are clear. The calvarium and skull base are intact. The ventricles and sulci are within normal limits. There is no mass, hematoma, midline shift, or acute infarct. Impression: No acute intracranial abnormality. ACT 112: Negative or not required by law. Electronically signed by: Cliff Christine M.D. 03/06/2024 9:[address] 03/06/24 09:04 CT chest diagnostic wo con CT DOSE: 916.6 mGy.cm HISTORY: hypoxia TECHNIQUE: Multiaxial CT images of the chest were performed without contrast. A dose lowering technique was utilized adhering to the principles of ALARA. COMPARISON: Abdomen and pelvis CT 03/05/2024. FINDINGS: Respiratory motion artifact results in suboptimal evaluation. The central airways are patent. No pneumothorax. Interlobular septal thickening with a few scattered patchy airspace opacities most pronounced within the right upper lobe. This likely represents moderate pulmonary edema. There is a 4 mm nodule within the right upper lobe on image 118. Interval development of small bilateral pleural effusions most pronounced on the right. Associated consol idation within the lower lobes posteriorly favors compressive atelectasis from the pleural effusions. A superimposed pneumonia would be difficult to exclude by imaging. No acute fractures identified within the chest. Limited views of the upper abdomen demonstrate a normal liver, spleen, adrenal glands. There is perinephric edema again noted. The heart is normal in size. No pericardial effusion. Normal esophagus. The thyroid gland is unremarkable. There is mild to moderate body wall edema. No mediastinal or hilar lymphadenopathy. Normal caliber thoracic aorta. IMPRESSION: 1. Interval development of moderate pulmonary edema and small bilateral pleural effusions. 2. Consolidation within the lungs posteriorly favor compressive atelectasis from the pleural effusions. A superimposed pneumonia would be difficult to exclude. 3. A 4 mm indeterminate pulmonary nodule within the right upper lobe. ACT 112: Negative or not required by law. Electronically signed by: Cliff Christine M.D. 03/06/2024 9:47 AM Brain MRI 03/06/24 10:30 Brain MRI WITHOUT CONTRAST HISTORY: Severe encephalopathy, concerning for global anoxia TECHNIQUE: Multiplanar multisequence MRI of the brain was performed without the use of contrast. COMPARISON STUDY: Head CT 03/06/2024. FINDINGS: There may be subtle areas of restricted diffusion within the cortex of the bilateral parietal/occipital lobes most pronounced on the left. There may be minimal associated hyperintense T2 signal at these locations on the FLAIR sequences. Therefore, findings raise the possibility of subtle ischemic change. There is no mass, hematoma, midline shift. The major vascular flow-voids at the skull base are well-maintained. The ventricles and sulci demonstrate mild age- related involutional changes. The orbits are unremarkable. Paranasal sinuses and mastoid air cells are clear. IMPRESSION: Possible subtle areas restricted diffusion within the cortex of the bilateral parietal/occipital lobes most pronounced on the left. This raises the possibility of subtle anoxic-ischemic injury. ACT 112: Negative or not required by law. Electronically signed by: Cliff Christine M.D. 03/06/2024 11:40 AM Chest X-Ray 03/06/24 13:37 XR chest 1V portable HISTORY: s/p intubation COMPARISON: Chest CT 03/06/2024. FINDINGS: The endotracheal tube terminates 4.6 cm and the papo. No pneumothorax. The cardiac silhouette is borderline enlarged. There is progressive interstitial/vascular thickening most pronounced on the right. This favors asymmetric pulmonary edema. There is a trace right pleural effusion. IMPRESSION: 1. Satisfactory support line placement 2. Asymmetric pulmonary edema with a trace right pleural effusion. ACT 112: Negative or not required by law. Electronically signed by: Cliff Christine M.D. 03/06/2024 2:00 PM Chest X-Ray 03/07/24 07:00 XR chest 1V portable CLINICAL HISTORY: Respiratory failure. COMPARISON STUDY: Chest CT and chest radiograph March 06, 2024. FINDINGS: The tip of the endotracheal tube is 2.6 cm above the papo. Tip of nasogastric tube is below the lower aspect of this image but at least within the proximal stomach. There is no pneumothorax. Cardiomediastinal silhouette is unremarkable. Small bilateral pleural effusions and bibasilar opacities, right greater than left, persists. There is mild interstitial thickening. IMPRESSION: 1. Satisfactory positioning of the endotracheal tube. 2. Persistent pulmonary edema with small bilateral pleural effusions and associated bibasilar opacities. ACT 112: Negative or not required by law. Electronically signed by: Roland Swan M.D. 03/07/2024 6:59 AM I & O Totals 24 Hours 03/06/24 03/07/24 03/08/24 06:59 06:59 06:59 Intake Total 9667.696 / 9667.696 2423.735 / 2423.735 449.715 / 449.715 Output Total 2950 / 2950 1255 / 1255 Balance 6717.696 / 6717.696 1168.735 / 1168.735 449.715 / 449.715 Cumulative 03/05/24 07:48 thru 03/07/24 08:19 Intake Total 76045.146 Output Total 4205 Balance 8336.146 RT Ventilator Mngmt (Last Documented) Ventilator Ordered Settings Ventilator Support Mode Assist Control 03/07/24 07:29 Respiratory Rate 18 03/07/24 07:29 Ventilator Tidal Volume 300 03/07/24 07:29 Setting Minute Ventilation 5.4 03/07/24 07:29 Positive End Expiratory 5 03/07/24 07:29 Pressure Fraction of Inspired Oxygen 30 03/07/24 07:29 Ventilator - PT Measurements Respiratory Rate 18 Exhaled Tidal Volume 301 Minute Ventilation 5.4 Peak Inspiratory Airway 10 Pressure Plateau Pressure 9 Respiratory Cycle Inspiratory: 1:2.9 Expiratory Ratio Inspiratory Phase Time 0.90 End-Tidal CO2 30 Static Lung Compliance 75.25 Dynamic Lung Compliance 60.20 Normal Static Lung Compliance 49.00 Patient Measurements Comment intubated for airway protection Coding Level of Care Code 16158 CRITICAL CARE EA ADD 30M Diagnoses Hyperosmolar hyperglycemic state (HHS) E11.00 Lactic acidosis E87.20 Complicated UTI (urinary tract infection) N39.0 Severe sepsis A41.9; R65.20 Elevated troponin R79.89 ONEIL (acute kidney injury) N17.9 Acute metabolic encephalopathy G93.41 Pulmonary edema J81.1
--- NOTE | 2024-03-07 09:07 | Neurology Progress Note ---
Date of Service March 07, 2024 Assessment & Plan (1) Acute metabolic encephalopathy: (2) Hyperosmolar hyperglycemic state (HHS): (3) Non-convulsive status epilepticus: (4) Diabetic neuropathy: Plan Patient has severe diabetes with hyperosmolar hyperglycemic state and a severe encephalopathy. She also has sepsis likely originating from E. coli UTI. Patient was having subclinical status epilepticus in the morning of March 06, broken with IV Ativan. This morning her EEG showed a 22-second episode of left- sided potentially epileptogenic activity of a subclinical nature (see report). I suspect that the subclinical seizures may fifth were triggered by the relatively rapid rate of change of lowering her glucose (that is irritable to the brain and can create seizures). The patient has longstanding diabetes and diabetic neuropathy. This will hinder certain lower extremity response testing and reflexes. Recommendations: 1. Because of her renal issues this morning, after discussing with pharmacy, we have made the following changes to anticonvulsants: a. Decrease levetiracetam to 250 mg IV every 6 hours b. Increase lacosamide to 150 mg IV every 12 hours 2. If she continues to have seizure activity I will likely add valproic acid IV and try to taper off levetiracetam. 3. Keep off [employer] sedating meds is much as possible 4. Consider EEG in a.m. of March 08. Overall, I spent a total of 120 minutes including review of records, review of MRI films, direct evaluation the patient at bedside, report generation, and discussion of the case with the RN at bedside, and Dr. Ortiz, including differential diagnosis and treatment options. Admission and Anticipated Discharge Date Admission Date: March 05, 2024 Subjective Patient has been off propofol and any sedate of medication since about 4:00 in the morning today. She is ventilator dependent although can breathe some over the ventilator at times. Nursing reports some spontaneous movement of the upper extremities and face but patient is not opening her eyes or responding appropriately to commands. She has sepsis (Likely secondary to E. coli UTI) and is on ceftriaxone). Her white count this morning is down to 26.8 (from 30.7). CHEM profile reveals an elevated BUN and creatinine as before. She is not hemodynamically stable as per Dr. Ortiz and is still on phenylephrine as well as amiodarone. Fingerstick glucose around 0850 was 233 Glucose, which went from 1069 at 0820 in the morning of March 05 down to 163 by the afternoon (16:01). EEG showed lateralizing discharges in bitemporal/parietal head regions. 2 mg of Ativan was given twice, 15 minutes apart, and the overall slowing in all sharp waves resolved. The patient had no clinical seizure activity. Therefore it was subclinical status like activity. Patient was having unresponsiveness and left gaze deviation and nystagmus, being more obtunded on the morning of March 06 compared to the . MRI of the brain showed some subtle areas of possible acute/subacute ischemic stroke parieto-occipital head regions. I reviewed these films and is very subtle, without obvious stroke. Rest of her MRI was largely unremarkable Nursing reports no seizures overnight. Results & Data Vital Signs (Past 12 Hours) Vital Signs Temp Pulse Resp BP Pulse Ox O2 Del Method FiO2 03/07/24 07:29 60 18 99 30 03/07/24 05:40 36.8 C 62 20 99 03/07/24 05:30 36.8 C 61 20 99 03/07/24 05:20 36.8 C 62 18 97 03/07/24 05:15 126/75 03/07/24 05:15 36.8 C 61 20 97 03/07/24 05:13 36.8 C 61 18 96 03/07/24 05:00 36.9 C 63 23 93 03/07/24 05:00 118/70 03/07/24 04:50 36.9 C 67 25 H 91 03/07/24 04:40 36.9 C 62 25 H 93 03/07/24 04:30 36.9 C 64 24 92 03/07/24 04:20 37.0 C 54 L 18 100 03/07/24 04:10 37.0 C 54 L 18 117/64 100 03/07/24 04:00 37.0 C 55 L 19 117/64 03/07/24 04:00 30 03/07/24 03:00 37.3 C 56 L 19 100 03/07/24 03:00 120/69 03/07/24 03:00 37.2 C 55 L 18 120/69 100 Mechanical Vent 03/07/24 02:30 37.3 C 57 L 19 100 03/07/24 02:30 111/65 03/07/24 02:23 60 20 100 30 03/07/24 02:00 37.4 C 58 L 18 95/59 L 100 Mechanical Vent 30 03/07/24 00:00 37.5 C 64 19 92/57 L 100 Mechanical Vent 30 03/07/24 00:00 30 03/07/24 00:00 67 03/06/24 23:20 67 22 100 30 03/06/24 23:00 37.3 C 65 19 92/56 L 100 Mechanical Vent 30 03/06/24 22:00 37 C 67 20 93/55 L 100 Mechanical Vent 40 03/06/24 21:00 36.2 C L 64 20 88/56 L 100 Mechanical Vent 40 Exam (Neuro) Physical Exam: Patient is lying in bed eyes closed breathing mostly with the ventilator which was set at 16 but occasionally her respiratory rate would go to 20. She had no significant spontaneous movement when left undisturbed. Eyes were closed. Eyes open passively and pupils were 4 to 5 mm bilaterally and reactive to light. Patient had positive oculocephalic movements without nystagmus. Eyes remained front. There were no corneal reflexes bilaterally. There is no obvious facial droop but she was intubated. She had slight gag and had a positive cough with suction. Patient had no response to voice/out. She had no significant response to sternal rub. The pain in the hands created some withdrawal and grimace. She opened her eyes slightly with that pain on the left. At first deep pain in the legs produced no movement but doing a vigorous Babinski response bilaterally created withdrawal response in each leg and some grimacing and eye opening. Limbs were of normal to slightly decreased tone throughout with no spasticity noted reflexes were 0/4 in the biceps triceps brachial radialis and Achilles tendons bilaterally. Quadricep tendon reflexes were 2/4. There was some edema of a mild nature in the hands and feet. The patient had no response to commands of her voice. No abnormal involuntary movements were noted. PG Care Time/CCT Total # of Minutes Spent Total Time Spent with Patient: Total time spent is greater than 50% in coordination of care (as documented) at patient's floor/unit and/or counseling patient: Coding Level of Care Code 32515 SUB INP/OBS CARE 3/50MIN Diagnoses Acute metabolic encephalopathy G93.41 Hyperosmolar hyperglycemic state (HHS) E11.00 Non-convulsive status epilepticus G40.901 Diabetic neuropathy E11.40 Time Spent (min) 120
[2024-03-07] MEDS: LACTATED RINGER'S 1,000 ML IV ONE (09:24)
[2024-03-07] MEDS: CALCIUM GLUCONATE 1,000 MG/60 ML BAG IV SCH (09:42)
[2024-03-07] MEDS: POTASSIUM CHLORIDE / WTR 10 MEQ/100 ML PLCT IV SCH (09:45)
--- NOTE | 2024-03-07 10:39 | Cardiology Consultation ---
Date of Consultation March 07, 2024 Assessment & Plan (1) Paroxysmal atrial fibrillation: (2) Prolonged QT interval: (3) Pulmonary edema: (4) Severe sepsis: (5) Elevated troponin: (6) Mitral regurgitation: Plan ASSESSMENT/PLAN: 1. Paroxysmal atrial fibrillation: Unstable blood pressures during A-fib with RVR. Underwent cardioversion x 2 and amiodarone infusion as per the critical care team. Amiodarone has since been discontinued on 03/06/2024. She has maintained sinus rhythm at the time of today's consultation (this morning). Post amiodarone ECG with prolonged QT. Can remain off of amiodarone for now. She was quite acutely ill, which may have exacerbated A-fib. Cannot exclude that she has paroxysmal A-fib in general. Agree with anticoagulation for stroke risk reduction if no contraindication. Depending on her clinical course, could consider outpatient monitoring. 2. Prolonged QT: QTc significantly longer after amiodarone. Repeat ECG now. Avoid QT prolonging medications. 3. Mitral regurgitation: Nonsevere. Can be monitored in the outpatient sett ing. 4. Pulmonary edema: Demonstrated on CT imaging. Had received approximately 12 L of crystalloid and is quite positive from an I's/O's standpoint. Volume status is being managed by critical care team. She is being treated for septic shock and hyperosmolar hyperglycemic state. 5. Seizure: As per neurology. 6. Elevated troponin: High-sensitivity troponin elevated and peaked at 2625. Normal LV systolic function. This is likely due to demand ischemia with her acutely and critically ill issues. Ischemic evaluation is not recommended at this time and her current state and can be readdressed when she is able to give a meaningful history to determine if she was having anginal symptoms prior to presentation. 7. Disposition: Cardiology will continue to follow. Patient care discussed with Dr. Ortiz of the critical care team. Thank you for allowing me to participate in the care of your patient. Please call for any other questions or concerns. Sincerely, Chon Muñoz M.D. History of Present Illness Reason for Consultation: Unstable atrial fibrillation s/p cardioversion x 2, on amiodarone Requesting Physician: Dr. Lacey Attending Physician: Davian Mariano History of Present Illness Ms. Cavazos is a 68-year-old female with a history significant for poorly controlled diabetes, hypertension, medication noncompliance, and dyslipidemia. She was admitted on 03/05/2024 with sepsis and hyperosmolar hyperglycemic state. She reportedly had been not taking her diabetic medications for approximately 2 months according to records and was found unresponsive by her . There was concern for aspiration due to vomiting prior to presentation. She was given IV fluids, IV insulin, and broad-spectrum antibiotics. Neurology was consulted and EEG performed, demonstrating breakthrough epileptic discharges and periodic lateralized epileptiform discharges. She underwent intubation for mechanical ventilation on 03/06/2024. In the early afternoon on 03/06/2024, she developed tach arrhythmia intermittently and nonsustained with intermittent sinus complexes. She then developed sustained atrial fibrillation with heart rates greater than 150 bpm noted on telemetry. According to records, she was unstable with this with systolic blood pressure dropping into the 70s mmHg. She underwent cardioversion by the critical care team. Sinus rhythm was restored only briefly and then back into atrial fibrillation with rapid ventricular response. She was given 150 mg bolus of IV amiodarone and she underwent cardioversion again with 150 J. Phenylephrine was initiated. She continued to have issues with atrial fibrillation immediately following the cardioversion and then at 1336, she mostly has been in sinus rhythm. According to nursing staff today, amiodarone was discontinued sometime yesterday afternoon due to reported bradycardia. On telemetry, her heart rate has mostly been 60s but near 50 bpm while in sinus, yesterday afternoon at times. Nursing staff had just discontinued phenylephrine before I evaluated her this morning at 9:30 AM. Nursing staff reports that she withdraws from pain but otherwise has been unresponsive. She has been off of sedation since 4 AM. Patient is unable to give any history as she is unresponsive to verbal stimuli. Review of systems: Unobtainable. Family history: Unobtainable from patient. Social history: Unobtainable from patient. She was unaccompanied. Allergies Allergy/AdvReac Type Severity Reaction Status Date / Time No Known Allergies Allergy Verified 09/29/23 08:46 Home Medications Medication Instructions Recorded Confirmed Type ascorbic acid (vitamin C) 250 mg 250 mg PO DAILY 12/14/19 03/05/24 History tablet OneTouch Verio test strips (blood #100 ea 05/28/23 09/29/23 Rx sugar diagnostic) buspirone 5 mg tablet 5 mg PO TID #90 tabs 05/28/23 03/05/24 Rx lancets 33 gauge (OneTouch Delica #100 ea 05/28/23 09/29/23 Rx Plus Lancet) pen needle, diabetic 32 gauge x #100 ea 05/28/23 03/05/24 Rx 5/32" (BD Ultra-Fine Snow Pen Needle) rosuvastatin 20 mg tablet (Crestor) 20 mg PO DAILY #30 tabs 06/25/23 03/05/24 Rx clotrimazole 1 % topical cream 1 applic topical BID #30 grams 07/30/23 03/05/24 Rx (Lotrimin AF (clotrimazole)) gabapentin 100 mg capsule 100 mg PO TID #90 caps 07/30/23 03/05/24 Rx metformin 500 mg tablet 500 mg PO BIDWMEAL 07/30/23 03/05/24 History sertraline 50 mg tablet 50 mg PO DAILY #30 tabs 08/13/23 03/05/24 Rx losartan 50 mg tablet 50 mg PO DAILY #90 tabs 09/18/23 03/05/24 Rx furosemide 20 mg tablet 0 mg PO DAILY 03/05/24 03/05/24 History insulin degludec 100 unit/mL (3 0 unit subcut DAILY 03/05/24 03/05/24 History mL) subcutaneous pen (Tresiba FlexTouch U-100 insulin) tirzepatide 2.5 mg/0.5 mL 0 mg subcut WK 03/05/24 03/05/24 History subcutaneous pen injector (Mounjaro) Patient History Medical History Pulmonary edema Hyperosmolar hyperglycemic state (HHS) Acute metabolic encephalopathy Severe sepsis Complicated UTI (urinary tract infection) Lactic acidosis HHS (hypothenar hammer syndrome) Neuropathic pain of both feet Edema of both legs Anxiety and depression Type 2 diabetes mellitus, uncontrolled Hyperlipidemia Lichen sclerosus et atrophicus Noncompliance with treatment plan Type II diabetes mellitus with neurological manifestations, uncontrolled Diabetes mellitus type 2, uncontrolled, with complications Surgical History History of lumbar surgery L4-L5 H/O total hysterectomy Family History Father Diabetes Prostate cancer Grandmother Diabetes Aunt Colorectal cancer Brother Stroke Denies family history of Ovarian cancer Myocardial infarction Breast cancer Social History Smoking Status: Unknown if ever smoked Second Hand Exposure: No; Do You Dip or Chew Tobacco: No; Hx Alcohol Use: No Hx Substance Use: No Preferred Language: Kazakh Communication Ability: Impaired Visual Impairment: No Limitations Hearing Ability: Normal Film Masker Required: No Beliefs That Will Affect Care: None marital status: Current Living Situation: Spouse Current Living Situation Comment: Lives with , 4 grandchildren and son. 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. How many Children do You have: 3 Feels Safe at Home: Yes Childhood Exposure to Second-Hand Smoke: No Diet: regular caffeine: Yes (soda) during the past year weight has: remained stable Dental Care, Regularly: No Physical Activity Frequency: Does not Exercise Seatbelt Use: always Sunscreen Use: No Assistive Devices: None Physical Exam Physical Exam: Gen.: No acute distress. Unresponsive to verbal stimuli. On mechanical ventilation. Mild grimace with deep sternal rub. Neck: No JVD. Cardiac: No ventricular heave. Regular. Normal S1-S2. No murmurs, rubs, or gal lops. Pulmonary: Clear to auscultation bilaterally without wheezes, rales, or rhonchi. Abdomen: Soft, nondistended, with hypoactive bowel sounds. No bruits noted. Extremities: 2+ radial pulses bilaterally. 2+ posterior tibialis pulses bilaterally. No edema or cyanosis. Results & Data Vital Signs (Past 12 Hours) Vital Signs Temp Pulse Resp BP Pulse Ox O2 Del Method FiO2 03/07/24 09:00 120/77 03/07/24 09:00 36.8 C 62 18 100 03/07/24 08:49 36.7 C 62 18 100 03/07/24 08:45 129/78 03/07/24 08:44 36.7 C 62 16 100 03/07/24 08:30 131/78 03/07/24 08:30 36.7 C 61 18 100 03/07/24 08:15 36.7 C 59 L 16 100 03/07/24 08:15 147/81 H 05/06/24 08:00 36.7 C 59 L 18 100 03/07/24 08:00 136/78 03/07/24 08:00 30 03/07/24 07:45 36.7 C 58 L 17 100 03/07/24 07:45 136/78 03/07/24 07:32 36.7 C 59 L 19 100 03/07/24 07:29 60 18 99 30 03/07/24 07:15 36.7 C 60 17 99 03/07/24 07:15 131/78 03/07/24 07:12 36.7 C 60 17 99 03/07/24 05:40 36.8 C 62 20 99 03/07/24 05:30 36.8 C 61 20 99 03/07/24 05:20 36.8 C 62 18 97 03/07/24 05:15 126/75 03/07/24 05:15 36.8 C 61 20 97 03/07/24 05:13 36.8 C 61 18 96 03/07/24 05:00 36.9 C 63 23 93 03/07/24 05:00 118/70 03/07/24 04:50 36.9 C 67 25 H 91 03/07/24 04:40 36.9 C 62 25 H 93 03/07/24 04:30 36.9 C 64 24 92 03/07/24 04:20 37.0 C 54 L 18 100 03/07/24 04:10 37.0 C 54 L 18 117/64 100 03/07/24 04:00 37.0 C 55 L 19 117/64 03/07/24 04:00 30 03/07/24 03:00 37.3 C 56 L 19 100 03/07/24 03:00 120/69 03/07/24 03:00 37.2 C 55 L 18 120/69 100 Mechanical Vent 03/07/24 02:30 37.3 C 57 L 19 100 03/07/24 02:30 111/65 03/07/24 02:23 60 20 100 30 03/07/24 02:00 37.4 C 58 L 18 95/59 L 100 Mechanical Vent 30 03/07/24 00:00 37.5 C 64 19 92/57 L 100 Mechanical Vent 30 03/07/24 00:00 30 03/07/24 00:00 67 03/06/24 23:20 67 22 100 30 03/06/24 23:00 37.3 C 65 19 92/56 L 100 Mechanical Vent 30 Intake & Output 03/05/24 03/06/24 03/07/24 03/08/24 06:59 06:59 06:59 06:59 Intake Total 9667.696 / 9667.696 2423.735 / 2423.735 1583.590 / 1583.590 Output Total 2950 / 2950 1255 / 1255 150 / 150 Balance 6717.696 / 6717.696 1168.735 / 8813.198 3743.590 / 1433.590 Weight 136 lb 3.931 oz 142 lb 3.17 oz Laboratory Results Laboratory Results - last 24 hr 03/06/24 03/06/24 03/06/24 18:03 19:58 20:22 WBC RBC Hgb POC Hgb Hct POC Hct MCV MCH MCHC RDW Std Deviation RDW Coeff of Abel Plt Count MPV Immature Gran % (Auto) Neut % (Auto) Lymph % (Auto) [place] % (Auto) Eos % (Auto) Baso % (Auto) Neut # (Auto) Lymph # (Auto) [place] # (Auto) Eos # (Auto) Baso # (Auto) Immature Gran # (Auto) APTT 23 PTT Ratio 0.9 Heparin Anti-Xa, Unfract Sample Site POC pH POC pCO2 POC pO2 POC HCO3 POC Total CO2 POC Base Excess ABG pH (Temp Correct) ABG pCO2 (Temp Corrct POC ABG pO2 at Pt Temp POC ABG O2 Sat Jacob Test O2 Delivery Device POC O2 Rate POC FiO2 Tidal Volume PEEP POC Sodium Sodium POC Potassium Potassium Chloride Carbon Dioxide Anion Gap BUN Creatinine Est Cr Clr Drug Dosing Est GFR ( Amer) Est GFR (Non-Af Amer) BUN/Creatinine Ratio Glucose POC Glucose 359 H* 401 H* Lactate Calcium Phosphorus Random Cortisol 03/06/24 03/06/24 03/06/24 21:01 22:01 23:03 WBC RBC Hgb POC Hgb Hct POC Hct MCV MCH MCHC RDW Std Deviation RDW Coeff of Abel Plt Count MPV Immature Gran % (Auto) Neut % (Auto) Lymph % (Auto) [place] % (Auto) Eos % (Auto) Baso % (Auto) Neut # (Auto) Lymph # (Auto) [place] # (Auto) Eos # (Auto) Baso # (Auto) Immature Gran # (Auto) APTT PTT Ratio Heparin Anti-Xa, Unfract Sample Site POC pH POC pCO2 POC pO2 POC HCO3 POC Total CO2 POC Base Excess ABG pH (Temp Correct) ABG pCO2 (Temp Corrct POC ABG pO2 at Pt Temp POC ABG O2 Sat Jacob Test O2 Delivery Device POC O2 Rate POC FiO2 Tidal Volume PEEP POC Sodium Sodium POC Potassium Potassium Chloride Carbon Dioxide Anion Gap BUN Creatinine Est Cr Clr Drug Dosing Est GFR ( Amer) Est GFR (Non-Af Amer) BUN/Creatinine Ratio Glucose POC Glucose 339 H* 302 H* 295 H Lactate Calcium Phosphorus Random Cortisol 03/06/24 03/07/24 03/07/24 23:58 01:02 02:05 WBC RBC Hgb POC Hgb Hct POC Hct MCV MCH MCHC RDW Std Deviation RDW Coeff of Abel Plt Count MPV Immature Gran % (Auto) Neut % (Auto) Lymph % (Auto) [place] % (Auto) Eos % (Auto) Baso % (Auto) Neut # (Auto) Lymph # (Auto) [place] # (Auto) Eos # (Auto) Baso # (Auto) Immature Gran # (Auto) APTT PTT Ratio Heparin Anti-Xa, Unfract Sample Site POC pH POC pCO2 POC pO2 POC HCO3 POC Total CO2 POC Base Excess ABG pH (Temp Correct) ABG pCO2 (Temp Corrct POC ABG pO2 at Pt Temp POC ABG O2 Sat Jacob Test O2 Delivery Device POC O2 Rate POC FiO2 Tidal Volume PEEP POC Sodium Sodium POC Potassium Potassium Chloride Carbon Dioxide Anion Gap BUN Creatinine Est Cr Clr Drug Dosing Est GFR ( Amer) Est GFR (Non-Af Amer) BUN/Creatinine Ratio Glucose POC Glucose 250 H 265 H 235 H Lactate Calcium Phosphorus Random Cortisol 03/07/24 03/07/24 03/07/24 02:35 02:39 02:59 WBC 26.89 H RBC 2.85 L Hgb 8.5 L POC Hgb Hct 24.1 L POC Hct MCV 84.6 MCH 29.8 MCHC 35.3 RDW Std Deviation 39.9 RDW Coeff of Abel 13.0 Plt Count 370 MPV 9.9 Immature Gran % (Auto) 3.6 Neut % (Auto) 75.5 Lymph % (Auto) 14.5 [place] % (Auto) 6.2 Eos % (Auto) 0.1 Baso % (Auto) 0.1 Neut # (Auto) 20.29 H Lymph # (Auto) 3.89 H [place] # (Auto) 1.68 H Eos # (Auto) 0.02 Baso # (Auto) 0.04 Immature Gran # (Auto) 0.97 H APTT PTT Ratio Heparin Anti-Xa, Unfract 0.46 Sample Site POC pH POC pCO2 POC pO2 POC HCO3 POC Total CO2 POC Base Excess ABG pH (Temp Correct) ABG pCO2 (Temp Corrct POC ABG pO2 at Pt Temp POC ABG O2 Sat Jacob Test O2 Delivery Device POC O2 Rate POC FiO2 Tidal Volume PEEP POC Sodium Sodium POC Potassium Potassium Chloride Carbon Dioxide Anion Gap BUN Creatinine Est Cr Clr Drug Dosing Est GFR ( Amer) Est GFR (Non-Af Amer) BUN/Creatinine Ratio Glucose POC Glucose 182 H Lactate Calcium Phosphorus Random Cortisol 03/07/24 03/07/24 03/07/24 03:27 04:41 05:13 WBC RBC Hgb POC Hgb 7.8 L Hct POC Hct 23 L MCV MCH MCHC RDW Std Deviation RDW Coeff of Abel Plt Count MPV Immature Gran % (Auto) Neut % (Auto) Lymph % (Auto) [place] % (Auto) Eos % (Auto) Baso % (Auto) Neut # (Auto) Lymph # (Auto) [place] # (Auto) Eos # (Auto) Baso # (Auto) Immature Gran # (Auto) APTT PTT Ratio Heparin Anti-Xa, Unfract Sample Site R Radial POC pH 7.38 POC pCO2 32 L POC pO2 66 L POC HCO3 19 POC Total CO2 20 L POC Base Excess -6.0 ABG pH (Temp Correct) 7.381 ABG pCO2 (Temp Corrct 32 L POC ABG pO2 at Pt Temp 65 POC ABG O2 Sat 93.0 Jacob Test Pass O2 Delivery Device Ventilator POC O2 Rate 16 POC FiO2 30 Tidal Volume 300 PEEP 5 POC Sodium 136 Sodium POC Potassium 3.0 L Potassium Chloride Carbon Dioxide Anion Gap BUN Creatinine Est Cr Clr Drug Dosing Est GFR ( Amer) Est GFR (Non-Af Amer) BUN/Creatinine Ratio Glucose POC Glucose 273 H 312 H* Lactate Calcium Phosphorus Random Cortisol 0503/07/24 03/07/24 05:28 06:31 06:34 WBC RBC Hgb POC Hgb Hct POC Hct MCV MCH MCHC RDW Std Deviation RDW Coeff of Abel Plt Count MPV Immature Gran % (Auto) Neut % (Auto) Lymph % (Auto) [place] % (Auto) Eos % (Auto) Baso % (Auto) Neut # (Auto) Lymph # (Auto) [place] # (Auto) Eos # (Auto) Baso # (Auto) Immature Gran # (Auto) APTT PTT Ratio Heparin Anti-Xa, Unfract Sample Site POC pH POC pCO2 POC pO2 POC HCO3 POC Total CO2 POC Base Excess ABG pH (Temp Correct) ABG pCO2 (Temp Corrct POC ABG pO2 at Pt Temp POC ABG O2 Sat Jacob Test O2 Delivery Device POC O2 Rate POC FiO2 Tidal Volume PEEP POC Sodium Sodium 137 POC Potassium Potassium 3.3 L D Chloride 106 Carbon Dioxide 23 Anion Gap 8 BUN 33 H Creatinine 1.81 H Est Cr Clr Drug Dosing 28.6 Est GFR ( Amer) 33.2 Est GFR (Non-Af Amer) 28.6 BUN/Creatinine Ratio 18.2 Glucose 229 H POC Glucose 251 H 224 H Lactate Calcium 7.4 L Phosphorus Random Cortisol 03/07/24 03/07/24 03/07/24 07:30 08:40 09:13 WBC RBC Hgb POC Hgb Hct POC Hct MCV MCH MCHC RDW Std Deviation RDW Coeff of Abel Plt Count MPV Immature Gran % (Auto) Neut % (Auto) Lymph % (Auto) [place] % (Auto) Eos % (Auto) Baso % (Auto) Neut # (Auto) Lymph # (Auto) [place] # (Auto) Eos # (Auto) Baso # (Auto) Immature Gran # (Auto) APTT PTT Ratio Heparin Anti-Xa, Unfract Sample Site POC pH POC pCO2 POC pO2 POC HCO3 POC Total CO2 POC Base Excess ABG pH (Temp Correct) ABG pCO2 (Temp Corrct POC ABG pO2 at Pt Temp POC ABG O2 Sat Jacob Test O2 Delivery Device POC O2 Rate POC FiO2 Tidal Volume PEEP POC Sodium Sodium POC Potassium Potassium Chloride Carbon Dioxide Anion Gap BUN Creatinine Est Cr Clr Drug Dosing Est GFR ( Amer) Est GFR (Non-Af Amer) BUN/Creatinine Ratio Glucose POC Glucose 243 H 230 H Lactate Calcium Phosphorus 3.9 D Random Cortisol 28.82 03/07/24 03/07/24 03/07/24 09:16 09:28 10:33 WBC RBC Hgb POC Hgb Hct POC Hct MCV MCH MCHC RDW Std Deviation RDW Coeff of Abel Plt Count MPV Immature Gran % (Auto) Neut % (Auto) Lymph % (Auto) [place] % (Auto) Eos % (Auto) Baso % (Auto) Neut # (Auto) Lymph # (Auto) [place] # (Auto) Eos # (Auto) Baso # (Auto) Immature Gran # (Auto) APTT PTT Ratio Heparin Anti-Xa, Unfract Sample Site POC pH POC pCO2 POC pO2 POC HCO3 POC Total CO2 POC Base Excess ABG pH (Temp Correct) ABG pCO2 (Temp Corrct POC ABG pO2 at Pt Temp POC ABG O2 Sat Jacob Test O2 Delivery Device POC O2 Rate POC FiO2 Tidal Volume PEEP POC Sodium Sodium POC Potassium Potassium Chloride Carbon Dioxide Anion Gap BUN Creatinine Est Cr Clr Drug Dosing Est GFR ( Amer) Est GFR (Non-Af Amer) BUN/Creatinine Ratio Glucose POC Glucose 234 H 236 H Lactate 1.5 Calcium Phosphorus Random Cortisol 03/07/24 03/07/24 03/07/24 11:33 13:13 14:30 WBC RBC Hgb POC Hgb Hct POC Hct MCV MCH MCHC RDW Std Deviation RDW Coeff of Abel Plt Count MPV Immature Gran % (Auto) Neut % (Auto) Lymph % (Auto) [place] % (Auto) Eos % (Auto) Baso % (Auto) Neut # (Auto) Lymph # (Auto) [place] # (Auto) Eos # (Auto) Baso # (Auto) Immature Gran # (Auto) APTT PTT Ratio Heparin Anti-Xa, Unfract Sample Site POC pH POC pCO2 POC pO2 POC HCO3 POC Total CO2 POC Base Excess ABG pH (Temp Correct) ABG pCO2 (Temp Corrct POC ABG pO2 at Pt Temp POC ABG O2 Sat Jacob Test O2 Delivery Device POC O2 Rate POC FiO2 Tidal Volume PEEP POC Sodium Sodium POC Potassium Potassium Chloride Carbon Dioxide Anion Gap BUN Creatinine Est Cr Clr Drug Dosing Est GFR ( Amer) Est GFR (Non-Af Amer) BUN/Creatinine Ratio Glucose POC Glucose 279 H 245 H 253 H Lactate Calcium Phosphorus Random Cortisol 03/07/24 03/07/24 03/07/24 15:30 16:28 17:32 WBC RBC Hgb POC Hgb Hct POC Hct MCV MCH MCHC RDW Std Deviation RDW Coeff of Abel Plt Count MPV Immature Gran % (Auto) Neut % (Auto) Lymph % (Auto) [place] % (Auto) Eos % (Auto) Baso % (Auto) Neut # (Auto) Lymph # (Auto) [place] # (Auto) Eos # (Auto) Baso # (Auto) Immature Gran # (Auto) APTT PTT Ratio Heparin Anti-Xa, Unfract Sample Site POC pH POC pCO2 POC pO2 POC HCO3 POC Total CO2 POC Base Excess ABG pH (Temp Correct) ABG pCO2 (Temp Corrct POC ABG pO2 at Pt Temp POC ABG O2 Sat Jacob Test O2 Delivery Device POC O2 Rate POC FiO2 Tidal Volume PEEP POC Sodium Sodium POC Potassium Potassium Chloride Carbon Dioxide Anion Gap BUN Creatinine Est Cr Clr Drug Dosing Est GFR ( Amer) Est GFR (Non-Af Amer) BUN/Creatinine Ratio Glucose POC Glucose 251 H 231 H 247 H Lactate Calcium Phosphorus Random Cortisol Diagnostic Findings History and physical report and critical care notes reviewed. Labs reviewed from 03/07/2024 and notable for abnormal renal function, hypokalemia, anemia, normal TSH on 03/05/2024. Telemetry personally reviewed: Sinus rhythm at the time of evaluation this morning. Episodes of A-fib with RVR as described in HPI on 03/06/2024. ECG personally reviewed: ECG 03/05/2024 at 8:30 AM: Likely sinus tachycardia 141 bpm. ECG 03/06/2024 at 1252: A-fib with RVR 149 bpm. RBBB. ECG 03/06/2024 2235: Sinus with short IL 66 bpm. Prolonged QT. Echo 03/05/2024: Normal LV systolic function. Normal wall motion. Moderate MR. EEG report reviewed as noted above in HPI. Chest x-ray 03/07/2024: Persistent pulmonary edema with small bilateral pleural effusions and associated bibasilar opacities per radiology. Brain MRI 03/06/2024: Possible subtle areas of restricted diffusion within the cortex of the bilateral parietal/occipital lobes, most pronounced on the left. Raises possibility of subtle anoxic/ischemic injury per radiology. CT chest 03/06/2024: Moderate pulmonary edema and small bilateral pleural effusions per radiology. Pulmonary nodule right upper lobe. Medications Administered Current Inpatient Medications Dextrose (Dextrose 50% 50 Ml Syringe) 25 - 50 ml IV UD PRN; Protocol PRN Reason: Hypoglycemia Protocol Stop: 04/04/24 09:03 Last Admin: 03/07/24 03:10 Dose: 25 ml Dextrose (Dextrose 50% 50 Ml Syringe) 25 - 50 ml IV UD PRN; Protocol PRN Reason: Hypoglycemia Protocol Stop: 04/04/24 11:59 Glucagon (Glucagon For Inj 1 Mg Vial) 1 mg IM UD PRN; Protocol PRN Reason: Hypoglycemia Protocol Stop: 04/04/24 11:59 Glucose (Glucose 40% Gel 15 Gm Tube) 15 - 30 gm PO UD PRN; Protocol PRN Reason: Hypoglycemia Protocol Stop: 04/04/24 11:59 Glucose (Glucose 10 Tab/Tube) 4 - 8 tab PO UD PRN; Protocol PRN Reason: Hypoglycemia Protocol Stop: 04/04/24 11:59 Insulin Human Regular 250 (units/ Sodium Chloride) 250 mls @ 0.4 mls/hr IV .Q24H SUMAYA; Protocol Stop: 04/04/24 09:14 Last Titration: 03/07/24 17:36 Dose: 0.3 units/hr, 0.3 mls/hr Acetaminophen (Ofirmev) 1,000 mg in 100 mls @ 400 mls/hr IV Q8H PRN PRN Reason: Fever Stop: 03/08/24 11:52 Last Infusion: 03/06/24 04:00 Dose: Infused Propofol (Diprivan) 1,000 mg in 100 mls @ 0 mls/hr IV .Q0M SUMAYA; Protocol Stop: 03/09/24 13:44 Last Admin: 03/07/24 07:27 Dose: Not Given Phenylephrine HCl (Phenylephrine/Nss) 25 mg in 250 mls @ 18.54 mls/hr IV .[id number] SUMAYA; Protocol Stop: 04/05/24 13:35 Last Titration: 03/07/24 09:34 Dose: 0 mcg/kg/min, 0 mls/hr Amiodarone HCl/Dextrose (Nexterone / D5w) 360 mg in 200 mls @ 16.667 mls/hr IV .Q12H SUMAYA Stop: 04/05/24 19:44 Last Admin: 03/07/24 08:09 Dose: Not Given Heparin Sodium/Dextrose (Heparin Sodium/Dextrose) 25,000 units in 500 mls @ 22 mls/hr IV .[id number] [facility]; Protocol Stop: 04/05/24 19:29 Last Titration: 03/07/24 07:12 Dose: 1,100 units/hr, 22 mls/hr Ceftriaxone Sodium (Rocephin) 1,000 mg in 50 mls @ 100 mls/hr IV Q24H [facility]; Protocol Stop: 03/17/24 09:59 Last Infusion: 03/07/24 11:55 Dose: Infused Levetiracetam 250 mg/ Sodium (Chloride) 102.5 mls @ 410 mls/hr IV Q6 [facility] Stop: 04/06/24 11:59 Last Infusion: 03/07/24 12:12 Dose: Infused Lacosamide 150 mg/ Sodium (Chloride) 65 mls @ 130 mls/hr IV Q12H [facility] Stop: 04/06/24 18:59 Pantoprazole Sodium 40 mg/ (Syringe) 10 mls @ 5 mls/min IV DAILY@1100 [facility] Stop: 04/06/24 11:59 Last Admin: 03/07/24 11:30 Dose: 5 mls/min Insulin Aspart (Insulin Aspart Per Unit Charge) 0 units SC ACHS [facility] Stop: 04/04/24 11:29 Last Admin: 03/07/24 17:37 Dose: Not Given Miscellaneous (Carbohydrates For Hypoglycemia ) 15 - 30 gm PO UD PRN PRN Reason: Hypoglycemia Treatment Stop: 04/04/24 11:59 Miscellaneous Information (Pharmacy Glycemic Mgmt Consult) 1 each N/A UD PRN PRN Reason: Consult Stop: 04/04/24 10:43 Propofol (Propofol Bolus From Bag) 20 mg IV Q5M PRN PRN Reason: Sedation Stop: 03/09/24 13:34 PG Care Time/CCT Total # of Minutes Spent Total Time Spent with Patient: Total time spent is greater than 50% in coordination of care (as documented) at patient's floor/unit and/or counseling patient: Coding Level of Care Code 17259 INT INP/OBS CARE 3/75MIN Diagnoses Paroxysmal atrial fibrillation I48.0 Prolonged QT interval R94.31 Pulmonary edema J81.1 Severe sepsis A41.9; R65.20 Elevated troponin R79.89 Mitral regurgitation I34.0
[2024-03-07] MEDS: cefTRIAXone SODIUM 1,000 MG/50 ML BAG IV SCH (11:13)
[2024-03-07] MEDS: PANTOprazole 40 MG in SYRINGE DAILY IV SCH (11:30)
[2024-03-07] MEDS: LEVETIRACETAM IV SCH (11:49)
[2024-03-07] MEDS: SODIUM CHLORIDE 0.9% IV SCH (11:49)
[2024-03-07] MEDS ORDERED: levETIRAcetam IV 500 MG in 0.9 % SODIUM CHLORIDE 100 ML IV SCH (12:00)
--- NOTE | 2024-03-07 13:30 | Pharmacy Report ---
Pharmacy Glycemic Short Note 2 - Date of Service March 07, 2024 - Glycemic Short BSG Results (Last 24 hours): 03/06/24 03/06/24 03/06/24 13:02 14:50 17:16 Glucose 341 H* POC Glucose 433 H* 433 H* 03/06/24 03/06/24 03/06/24 18:03 19:58 21:01 Glucose POC Glucose 359 H* 401 H* 339 H* 03/06/24 03/06/24 03/06/24 22:01 23:03 23:58 Glucose POC Glucose 302 H* 295 H 250 H 03/07/24 03/07/24 03/07/24 01:02 02:05 02:59 Glucose POC Glucose 265 H 235 H 182 H 03/07/24 03/07/24 03/07/24 03:27 04:41 05:28 Glucose POC Glucose 273 H 312 H* 251 H 03/07/24 03/07/24 03/07/24 06:31 06:34 07:30 Glucose 229 H POC Glucose 224 H 243 H 03/07/24 03/07/24 03/07/24 08:40 09:28 10:33 Glucose POC Glucose 230 H 234 H 236 H 03/07/24 03/07/24 11:33 13:13 Glucose POC Glucose 279 H 245 H OUTPATIENT ANTIDIABETIC REGIMEN: * Patient discontinued anti-DM meds * A1c = 15.9% (03/05/24) ASSESSMENT: 03/07 * BSG goal range of 250-350mg/dL to continue for the next 24 hrs per Collection Systems Administrator * Calculated effective serum osmo 287 this AM * BSGs running in the 220s with insulin drip infusing at 0.6unit/hr this AM, now titrated down to 0.4units/hr. * Phenylephrine weaned off. Propofol remains off. Patient remains intubated. Heparin drip (in D5W) continues to infuse. Amiodarone gtt off. * Continue low dose insulin drip for now as this offers more precision in maintaining BSGs in current range - could consider transition to SQ Novolog Q 4 hr regimen in the near future 03/06 * Carol is a 68 yo T2DM admitted with HHS. BSG 1069 on arrival to the ED. She was started on IV insulin infusion per DKA/HHS protocol. * Patient is prescribed basal insulin and metformin but stopped these medications about 2 months ago due to side effects. * Electrolyte abnormalities improved on 5/5 am, however worsening mental status. Calculated serum osmolality = 299. * Neurology consulted due to concerns of seizure activity. New onset A. fib, phenylephrine drip started for hypotension and patient intubated for airway protection. * Plan per ICU rounds is to continue patient on IV insulin infusion at the HHS goal range. Dextrose containing fluids were stopped due to volume overload. PLAN FOR INPATIENT GLYCEMIC CONTROL: Continue IV insulin infusion to target BSG of 250 - 350 mg/dL
--- NOTE | 2024-03-07 15:21 | Electrocardiogram Report ---
Test Reason : Blood Pressure : / mmHG Vent. Rate : 066 BPM Atrial Rate : 066 BPM P-R Int : 096 ms QRS Dur : 098 ms QT Int : 546 ms P-R-T Axes : 003 047 047 degrees QTc Int : 572 ms Sinus rhythm with short ME Prolonged QT Abnormal ECG When compared with ECG of 06-MAR-2024 12:52, Sinus rhythm has replaced Atrial fibrillation Vent. rate has decreased BY 83 BPM Right bundle branch block is no longer Present QT has lengthened Confirmed by Beny Muñoz ([id number]) on 03/07/2024 3:21:18 PM Referred By: REFERRED SELF Confirmed By:Beny Muñoz
[2024-03-07] MEDS: LACOSAMIDE 150 MG in SODIUM CHLORIDE 0.9% 50 ML IV SCH (19:55)
[2024-03-07] MEDS: LANTUS PER UNIT CHARGE SC ONE (20:00)
[2024-03-07] MEDS: INSULIN ASPART PER UNIT CHARGE SC SCH (20:03)
--- NOTE | 2024-03-07 22:59 | Hospitalist Progress Note ---
Date of Service March 07, 2024 Assessment & Plan (1) Sepsis: Plan: Septic shock suspected from UTI: E. coli Lactate 4.6 -> 6.1 after 2L NSS bolus, additional Plasma-lyte bolus 1L ordered, continue to trend lactate Suspected urinary source (CT A/P ordered) +/- aspiration Broad spectrum antibiotics with cefepime and vancomycin given in the ER, will switch to vancomycin/Zosyn Follow up blood and urine cultures On 03/06 Patient remains in the iCU Consulted Neurolgy Concern for possible central pontine myelinosis due to severe osmotic chages. Ordered MRI of brain. ONEIL improving. However, patient remains encephalopathic and not responsive On 03/07 Patient vented since PM of 03/06 Patient had subclinical status epilepticus on March 06, broke with atruss Appreciate input from neurology Decrease keppra and continue vimpat In regards to a fib, treated with amiodarone. (2) Type 2 diabetes mellitus with hyperosmolar hyperglycemic state (HHS): Plan: Secondary to stopping diabetes medications HbA1C 9.2 in September, repeat with AM labs Insulin aim 150-250 due to concurrent DKA Half NSS + 20 meq KCl @ 150ml/hr after fluid resuscitation, add D5 once glucose within aim q4h BMP/pH/PO/Mg (3) DKA (diabetic ketoacidosis): Plan: Mostly HHS but mild DKA with ketonuria, bicarb 17, anion gap 21 (although suspect most of this is lactic acidosis) (4) Unresponsive state: Plan: ABG currently with appropriately low CO2 and tachypnea Continue to monitor for deterioration however she is not for intubation (5) Elevated troponin: Plan: Suspect demand related given etiologies as above New RBBB and TWI on EKG, doubtful PE given no hypoxia Trend troponin TTE (6) Hypertension: Plan: Hold all anti-hypertensives at this time (7) ONEIL (acute kidney injury): Plan: Suspected pre-renal Amado catheter inserted IV fluids as above (8) UTI (urinary tract infection): Plan VTE Prophylaxis - heparin 5000 units SQ BID Diet - NPO Disposition - admit to ICU Admission and Anticipated Discharge Date Admission Date: March 05, 2024 Subjective Patient now vented. Review of Systems Review of Systems: Unobtainable due to endotracheal tube Physical Exam Physical Exam: Patient unresponsive. Constitutional: + not well nourished and no acute distre ss Eyes: PERRL, conjunctivae normal, anicteric sclerae Respiratory: normal respiratory effort; no respiratory distress Auscultation: + rhonchi (bilateral); no wheezes Cardiovascular: Rate/Rhythm: regular rate and regular rhythm Heart Sounds: no murmur Gastrointestinal (Abdomen): normal bowel sounds, soft, nontender, no hepatosplenomegaly Skin: no rashes, warm and dry Neurologic: + does not move all extremities and + no t awake Psychiatric: Orientation: + not alert (GCS3 (E1V1M1)) Results & Data Results & Data Vital Signs (Past 12 Hours) Vital Signs Temp Pulse Resp BP Pulse Ox O2 Del Method FiO2 03/07/24 22:00 36.2 C L 67 16 121/70 100 Mechanical Vent 03/07/24 21:00 36.2 C L 65 16 116/69 100 Mechanical Vent 30 03/07/24 20:00 Mechanical Vent 30 03/07/24 20:00 30 03/07/24 20:00 36.2 C L 63 16 109/70 100 Mechanical Vent 30 03/07/24 19:45 63 21 100 30 03/07/24 18:50 36.1 C L 66 19 117/71 100 03/07/24 17:00 36.1 C L 61 17 111/63 100 03/07/24 16:00 36.0 C L 62 16 100/62 100 03/07/24 16:00 30 03/07/24 15:04 36.0 C L 63 16 100 03/07/24 15:04 63 19 100 30 03/07/24 14:00 36.0 C L 64 16 100 03/07/24 14:00 112/70 03/07/24 13:00 36.2 C L 65 16 100 03/07/24 13:00 111/69 03/07/24 12:45 36.2 C L 66 16 100 03/07/24 12:45 112/71 03/07/24 12:30 120/76 03/07/24 12:30 36.2 C L 69 29 H 100 03/07/24 12:15 36.2 C L 66 17 100 03/07/24 12:15 113/72 03/07/24 12:00 120/74 03/07/24 12:00 36.3 C L 66 16 100 03/07/24 12:00 30 05/06/24 11:45 36.4 C L 67 17 100 03/07/24 11:45 114/72 03/07/24 11:30 36.4 C L 67 16 100 03/07/24 11:30 120/74 03/07/24 11:15 36.5 C 66 17 100 03/07/24 11:15 113/71 03/07/24 11:10 65 18 100 30 03/07/24 11:01 36.6 C 63 16 100 03/07/24 11:00 114/72 PG Care Time/CCT Total # of Minutes Spent Total Time Spent with Patient: Total time spent is greater than 50% in coordination of care (as documented) at patient's floor/unit and/or counseling patient: Coding Level of Care Code 52063 SUB INP/OBS CARE 3/50MIN Diagnoses Sepsis A41.9 Type 2 diabetes mellitus with hyperosmolar hyperglycemic state (HHS) E11.00 DKA (diabetic ketoacidosis) E11.10 Unresponsive state R41.89 Elevated troponin R79.89 Hypertension I10 ONEIL (acute kidney injury) N17.9 UTI (urinary tract infection) N39.0
[2024-03-08 04:36] LABS: Basophils # (auto) 0.02 K/uL (0.00-0.20); Basophils % (auto) 0.2 %; Eosinophils # (auto) 0.12 K/uL (0.00-0.50); Hematocrit (blood only) 24.4 % (37.0-47.0); Hemoglobin 8.4 g/dl (12.0-16.0); Immature Granulocytes # (auto) 0.13 K/uL (0.01-0.20); Lymphocytes # (auto) 1.79 K/uL (1.20-3.40); Lymphocytes % (auto) 14.3 %; Mean Corpuscular Hemoglobin 29.6 pg (25.0-34.0); Mean Corpuscular Hgb Conc 34.4 g/dL (32.0-36.0); Mean Corpuscular Volume 85.9 fL (80.0-100.0); Mean Platelet Volume 9.8 fL (9.4-12.4); Monocytes % (auto) 5.6 %; Neutrophils % (auto) 77.9 %; Platelet Count 240 K/uL (130-400); RDW Coefficient of Variation 13.1 % (11.5-14.5); RDW Standard Deviation 40.4 fL (36.4-46.3); Red Blood Count 2.84 M/uL (4.20-5.40); White Blood Count 12.56 K/ul (4.8-10.8)
[2024-03-08 04:48] LABS: iSTAT Allen Test Pass; iSTAT Art Bld Gas pCO2 Correct 30 mmHg (35-46); iSTAT Art Bld Gas pH Corrected 7.419 (7.35-7.45); iSTAT Arterial Blood Gas HCO3 19 meg/L (19-24); iSTAT Arterial Blood Gas pCO2 31 mmHg (35-46); iSTAT Arterial Blood Gas pH 7.41 (7.35-7.45); iSTAT Arterial Blood Gas pO2 143 mmHg (80-95); iSTAT Arterial Blood Gas pO2 C 138; iSTAT Carbon Dioxide 20 mmol/L (24-31); iSTAT FiO2 30 %; iSTAT Hematocrit 20 % (37-47); iSTAT Hemoglobin 6.8 g/dl (12.0-16.0); iSTAT Potassium 3.6 mmol/L (3.3-5.0); iSTAT Site R Radial; iSTAT Sodium 136 mmol/L (135-144)
[2024-03-08 04:54] LABS: Calcium 7.9 mg/dl (8.6-10.3); Creatinine Clr Calc Pharmacy 30.1 ml/min; Est GFR (African American) 35.3 ml/min; Est GFR (Non-African American) 30.5 ml/min; Phosphorus 3.8 mg/dl (2.5-4.9); Potassium 3.8 mmol/L (3.5-5.1)
[2024-03-08 05:44] LABS: ANTI-Xa, LMWH(Low Molecular Wt 0.69 IU/ML (< 0.10)
[2024-03-08] MEDS: POTASSIUM CHLORIDE / WTR 10 MEQ/100 ML PLCT IV SCH (08:10)
--- NOTE | 2024-03-08 09:23 | Electroencephalogram ---
EEG Procedure Note Date of Service March 08, 2024 Start / End Times Start Time: 758 End Time: [address] Reynolds History 68-year-old with severe hyperosmolar hyperglycemic state sepsis with recent subclinical seizures over the last several days. Home Medication List Medication Instructions Recorded Confirmed Type ascorbic acid (vitamin C) 250 mg 250 mg PO DAILY 12/14/19 03/05/24 History tablet OneTouch Verio test strips (blood #100 ea 05/28/23 09/29/23 Rx sugar diagnostic) buspirone 5 mg tablet 5 mg PO TID #90 tabs 05/28/23 03/05/24 Rx lancets 33 gauge (OneTouch Delica #100 ea 05/28/23 09/29/23 Rx Plus Lancet) pen needle, diabetic 32 gauge x #100 ea 05/28/23 03/05/24 Rx 5/32" (BD Ultra-Fine Snow Pen Needle) rosuvastatin 20 mg tablet (Crestor) 20 mg PO DAILY #30 tabs 06/25/23 03/05/24 Rx clotrimazole 1 % topical cream 1 applic topical BID #30 grams 07/30/23 03/05/24 Rx (Lotrimin AF (clotrimazole)) gabapentin 100 mg capsule 100 mg PO TID #90 caps 07/30/23 03/05/24 Rx metformin 500 mg tablet 500 mg PO BIDWMEAL 07/30/23 03/05/24 History sertraline 50 mg tablet 50 mg PO DAILY #30 tabs 08/13/23 03/05/24 Rx losartan 50 mg tablet 50 mg PO DAILY #90 tabs 09/18/23 03/05/24 Rx furosemide 20 mg tablet 0 mg PO DAILY 03/05/24 03/05/24 History insulin degludec 100 unit/mL (3 0 unit subcut DAILY 03/05/24 03/05/24 History mL) subcutaneous pen (Tresiba FlexTouch U-100 insulin) tirzepatide 2.5 mg/0.5 mL 0 mg subcut WK 03/05/24 03/05/24 History subcutaneous pen injector (Mounjaro) Inpatient Medication List Acetaminophen (Ofirmev) 1,000 mg in 100 mls @ 400 mls/hr IV Q8H PRN PRN Reason: Fever Stop: 03/08/24 11:52 Last Infusion: 03/06/24 04:00 Dose: Infused Documented By: Admin: 03/06/24 03:44 Dose: 400 mls/hr Documented By: ESG Propofol (Diprivan) 1,000 mg in 100 mls @ 0 mls/hr IV .Q0M [facility]; Protocol Stop: 03/09/24 13:44 Last Titration: 03/08/24 08:45 Dose: 0 mcg/kg/min, 0 mls/hr Documented By: Titration: 03/08/24 08:15 Dose: 5 mcg/kg/min, 1.9 mls/hr Documented By: Titration: 03/08/24 07:45 Dose: 10 mcg/kg/min, 3.7 mls/hr Documented By: Titration: 03/08/24 07:30 Dose: 15 mcg/kg/min, 5.6 mls/hr Documented By: Titration: 03/08/24 07:19 Dose: 20 mcg/kg/min, 7.4 mls/hr Documented By: Admin: 03/08/24 04:44 Dose: 20 mcg/kg/min, 7.4 mls/hr Documented By: STEVEN Co-signed By: TP Titration: 03/08/24 04:43 Dose: Infused Documented By: Admin: 03/07/24 07:27 Dose: Not Given Documented By: Titration: 03/07/24 07:12 Dose: 0 mcg/kg/min, 0 mls/hr Documented By: EMANUEL Co-signed By: ESG Titration: 03/07/24 04:20 Dose: 0 mcg/kg/min, 0 mls/hr Documented By: Admin: 03/06/24 22:01 Dose: 15 mcg/kg/min, 5.6 mls/hr Documented By: PRAMOD Co-signed By: ESG Titration: 03/06/24 22:01 Dose: Infused Documented By: VK Co-signed By: ESG Titration: 03/06/24 19:06 Dose: 15 mcg/kg/min, 5.6 mls/hr Documented By: VK Co-signed By: LAF Admin: 03/06/24 15:16 Dose: 20 mcg/kg/min, 7.4 mls/hr Documented By: LAF Co-signed By: KAYA Phenylephrine HCl (Phenylephrine/Nss) 25 mg in 250 mls @ 18.54 mls/hr IV .[id number] [facility]; Protocol Stop: 04/05/24 13:35 Last Admin: 03/08/24 07:19 Dose: Not Given Documented By: Titration: 03/07/24 09:34 Dose: 0 mcg/kg/min, 0 mls/hr Documented By: EMANUEL Co-signed By: CAM Titration: 03/07/24 08:19 Dose: 0.3 mcg/kg/min, 11.1 mls/hr Documented By: JLM Co-signed By: CAM Admin: 03/07/24 08:07 Dose: 0.5 mcg/kg/min, 18.5 mls/hr Documented By: EMANUEL Co-signed By: CAM Titration: 03/07/24 08:07 Dose: Infused Documented By: EMANUEL Co-signed By: CAM Titration: 03/07/24 07:12 Dose: 0.5 mcg/kg/min, 18.5 mls/hr Documented By: JLLili Co-signed By: ESG Titration: 03/07/24 02:07 Dose: 0.7 mcg/kg/min, 26 mls/hr Documented By: ESG Co-signed By: VK Titration: 03/06/24 22:49 Dose: 0.5 mcg/kg/min, 18.5 mls/hr Documented By: ESG Co-signed By: VK Admin: 03/06/24 22:39 Dose: 0.3 mcg/kg/min, 11.1 mls/hr Documented By: ESG Co-signed By: VK Titration: 03/06/24 22:39 Dose: Infused Documented By: ESG Co-signed By: VK Titration: 03/06/24 21:45 Dose: 0.5 mcg/kg/min, 18.5 mls/hr Documented By: ESG Co-signed By: VK Titration: 03/06/24 20:34 Dose: 0.3 mcg/kg/min, 11.1 mls/hr Documented By: ESG Co-signed By: VK Titration: 03/06/24 19:06 Dose: 0.5 mcg/kg/min, 18.5 mls/hr Documented By: VK Co-signed By: LAF Admin: 03/06/24 15:16 Dose: 0.5 mcg/kg/min, 18.5 mls/hr Documented By: GOSIA Co-signed By: KAYA Heparin Sodium/Dextrose (Heparin Sodium/Dextrose) 25,000 units in 500 mls @ 22 mls/hr IV .[id number] [facility]; Protocol Stop: 04/05/24 19:29 Last Titration: 03/08/24 07:19 Dose: 1,100 units/hr, 22 mls/hr Documented By: STEVEN Co-signed By: EMANUEL Titration: 03/07/24 19:08 Dose: 1,100 units/hr, 22 mls/hr Documented By: STEVEN Co-signed By: EMANUEL Admin: 03/07/24 17:55 Dose: 1,100 units/hr, 22 mls/hr Documented By: EMANUEL Co-signed By: CHAU Titration: 03/07/24 17:55 Dose: Infused Documented By: EMANUEL Co-signed By: CHAU Titration: 03/07/24 07:12 Dose: 1,100 units/hr, 22 mls/hr Documented By: EMANUEL Co-signed By: STEVEN Admin: 03/06/24 20:27 Dose: 1,100 units/hr, 22 mls/hr Documented By: PRAMOD Co-signed By: STEVEN Ceftriaxone Sodium (Rocephin) 1,000 mg in 50 mls @ 100 mls/hr IV Q24H [facility]; Protocol Stop: 03/17/24 09:59 Last Infusion: 03/07/24 11:55 Dose: Infused Documented By: Admin: 03/07/24 11:13 Dose: 100 mls/hr Documented By: EMANUEL Levetiracetam 250 mg/ Sodium (Chloride) 102.5 mls @ 410 mls/hr IV Q6 [facility] Stop: 04/06/24 11:59 Last Infusion: 03/08/24 07:19 Dose: Infused Documented By: Admin: 03/08/24 06:14 Dose: 410 mls/hr Documented By: Infusion: 03/08/24 01:00 Dose: Infused Documented By: Admin: 03/08/24 00:42 Dose: 410 mls/hr Documented By: Infusion: 03/07/24 18:20 Dose: Infused Documented By: Admin: 03/07/24 17:54 Dose: 410 mls/hr Documented By: Infusion: 03/07/24 12:12 Dose: Infused Documented By: Admin: 03/07/24 11:49 Dose: 410 mls/hr Documented By: EMANUEL Lacosamide 150 mg/ Sodium (Chloride) 65 mls @ 130 mls/hr IV Q12H [facility] Stop: 04/06/24 18:59 Last Infusion: 03/08/24 08:45 Dose: Infused Documented By: Admin: 03/08/24 08:11 Dose: 130 mls/hr Documented By: Infusion: 03/07/24 20:43 Dose: Infused Documented By: Admin: 03/07/24 19:55 Dose: 130 mls/hr Documented By: STEVEN Pantoprazole Sodium 40 mg/ (Syringe) 10 mls @ 5 mls/min IV DAILY@1100 [facility] Stop: 04/06/24 11:59 Last Admin: 03/07/24 11:30 Dose: 5 mls/min Documented By: EMANUEL Insulin Aspart (Insulin Aspart Per Unit Charge) 0 units SC Q4 [facility] Stop: 04/06/24 19:59 Last Admin: 03/08/24 08:12 Dose: Not Given Documented By: EMANUEL Co-signed By: CHAU Admin: 03/08/24 04:42 Dose: 1 units Documented By: STEVEN Co-signed By: TAVON Admin: 03/08/24 00:49 Dose: 1 units Documented By: STEVEN Co-signed By: SG Admin: 03/07/24 20:03 Dose: Not Given Documented By: STEVEN Co-signed By: TAVON Discontinued Medications Amiodarone HCl/Dextrose (Amiodarone 150mg / 100ml D5w) Confirm Administered Dose 150 mg IV .STK-MED ONE Stop: 03/06/24 13:06 Last Admin: 03/06/24 13:05 Dose: 150 mg Documented By: GOSIA Co-signed By: KAYA Amiodarone HCl/Dextrose (Amiodarone 360mg / 200ml D5w) Confirm Administered Dose 360 mg IV .STK-MED ONE Stop: 03/06/24 13:16 Last Admin: 03/06/24 13:15 Dose: 360 mg Documented By: GOSIA Co-signed By: KAYA Dextrose (Dextrose 50% 50 Ml Syringe) 25 - 50 ml IV UD PRN; Protocol PRN Reason: Hypoglycemia Protocol Stop: 04/04/24 09:03 Last Admin: 03/07/24 03:10 Dose: 25 ml Documented By: Admin: 03/05/24 22:28 Dose: 25 ml Documented By: Admin: 03/05/24 17:24 Dose: 25 ml Documented By: Admin: 03/05/24 17:05 Dose: 25 ml Documented By: GOSIA Etomidate (Etomidate 2 Mg/Ml 20 Ml Vial) 20 mg IV NOW ONE Stop: 03/06/24 13:37 Last Admin: 03/06/24 13:05 Dose: 20 mg Documented By: GOSIA Furosemide (Furosemide 40 Mg/4 Ml Vial) 40 mg IV ONE ONE Stop: 03/06/24 08:34 Last Admin: 03/06/24 08:39 Dose: 40 mg Documented By: GOSIA Furosemide (Furosemide 40 Mg/4 Ml Vial) Confirm Administered Dose 40 mg IV .STK- MED ONE Stop: 03/06/24 08:36 Last Admin: 03/06/24 08:42 Dose: Not Given Documented By: GOSIA Heparin Sodium (Porcine) (Heparin Sod 5,000 Unit/0.5 Ml Vial) 5,000 units SQ BID [facility] Stop: 04/04/24 20:59 Last Admin: 03/06/24 11:57 Dose: Not Given Documented By: Admin: 03/05/24 21:06 Dose: 5,000 units Documented By: STEVEN Heparin Sodium/Dextrose (Heparin Iv Adult Wt-Based Standard *No* Initial Bolus Protocol) 1 each IV ONE STA; Protocol Stop: 03/06/24 19:09 Last Admin: 03/06/24 20:27 Dose: 1 each Documented By: PRAMOD Heparin Sodium/Dextrose (Heparin 97665 Unit/500 Ml D5w) Confirm Administered Dose 25,000 units IV .STK-MED ONE Stop: 03/06/24 20:05 Last Admin: 03/06/24 20:27 Dose: Not Given Documented By: PRAMOD Sodium Chloride (Nss) 2,000 mls @ 999 mls/hr IV .Q2H1M [facility] Stop: 03/05/24 10:15 Last Infusion: 03/05/24 13:31 Dose: Infused Documented By: Admin: 03/05/24 08:31 Dose: 999 mls/hr Documented By: NOREEN Acetaminophen (Ofirmev) 1,000 mg in 100 mls @ 400 mls/hr IV NOW STA Stop: 03/05/24 08:29 Last Infusion: 03/05/24 08:42 Dose: Infused Documented By: Admin: 03/05/24 08:27 Dose: 400 mls/hr Documented By: NOREEN Cefepime HCl (Maxipime) 2,000 mg in 20 mls @ 5 mls/min IV NOW STA; Protocol Stop: 03/05/24 08:20 Last Admin: 03/05/24 08:34 Dose: 5 mls/min Documented By: NOREEN Vancomycin HCl 1,250 mg/ (Sodium Chloride) 525 mls @ 200 mls/hr IV NOW ONE Stop: 03/05/24 10:46 Last Infusion: 03/05/24 13:31 Dose: Infused Documented By: Admin: 03/05/24 08:54 Dose: 200 mls/hr Documented By: HERIBERTO Insulin Human Regular 250 (units/ Sodium Chloride) 250 mls @ 0.3 mls/hr IV .Q24H [facility]; Protocol Stop: 04/04/24 09:14 Last Titration: 03/07/24 19:08 Dose: Infused Documented By: STEVEN Co-signed By: EMANUEL Titration: 03/07/24 18:41 Dose: 0.2 units/hr, 0.2 mls/hr Documented By: EMANUEL Co-signed By: CHETNA Titration: 03/07/24 17:36 Dose: 0.3 units/hr, 0.3 mls/hr Documented By: EMANUEL Co-signed By: CHETNA Titration: 03/07/24 16:30 Dose: 0.3 units/hr, 0.3 mls/hr Documented By: CHAU Co-signed By: STEVEN(2) Admin: 03/07/24 14:25 Dose: 0.4 units/hr, 0.4 mls/hr Documented By: EMANUEL Co-signed By: CHETNA Titration: 03/07/24 14:25 Dose: Infused Documented By: EMANUEL Co-signed By: CHETNA Titration: 03/07/24 13:16 Dose: 0.4 units/hr, 0.4 mls/hr Documented By: EMANUEL Co-signed By: CAM Titration: 03/07/24 11:30 Dose: 0.5 units/hr, 0.5 mls/hr Documented By: EMANUEL Co-signed By: ESG(2) Titration: 03/07/24 10:30 Dose: 0.5 units/hr, 0.5 mls/hr Documented By: EMANUEL Co-signed By: ESG(2) Titration: 03/07/24 09:30 Dose: 0.5 units/hr, 0.5 mls/hr Documented By: EMANUEL Co-signed By: ESG(2) Titration: 03/07/24 08:30 Dose: 0.5 units/hr, 0.5 mls/hr Documented By: EMANUEL Co-signed By: ESG(2) Titration: 03/07/24 07:30 Dose: 0.6 units/hr, 0.6 mls/hr Documented By: EMANUEL Co-signed By: ESG(2) Titration: 03/07/24 07:12 Dose: 0.6 units/hr, 0.6 mls/hr Documented By: EMANUEL Co-signed By: ESG Titration: 03/07/24 06:33 Dose: 0.6 units/hr, 0.6 mls/hr Documented By: STEVEN Co-signed By: VK Titration: 03/07/24 05:30 Dose: 0.7 units/hr, 0.7 mls/hr Documented By: STEVEN Co-signed By: VK Titration: 03/07/24 04:44 Dose: 0.7 units/hr, 0.7 mls/hr Documented By: STEVEN Co-signed By: VK Titration: 03/07/24 03:40 Dose: 0.7 units/hr, 0.7 mls/hr Documented By: EFFIEG Co-signed By: VK Titration: 03/07/24 03:31 Dose: 0.7 units/hr, 0.7 mls/hr Documented By: STEVEN Co-signed By: AMW Titration: 03/07/24 03:05 Dose: 0 units/hr, 0 mls/hr Documented By: STEVEN Co-signed By: AMW Titration: 03/07/24 02:07 Dose: 1.2 units/hr, 1.2 mls/hr Documented By: STEVEN Co-signed By: VK Titration: 03/07/24 01:04 Dose: 1.5 units/hr, 1.5 mls/hr Documented By: ESG Co-signed By: VK Titration: 03/07/24 00:00 Dose: 1.5 units/hr, 1.5 mls/hr Documented By: ESG Co-signed By: VK Titration: 03/06/24 23:00 Dose: 1.9 units/hr, 1.9 mls/hr Documented By: ESG Co-signed By: VK Titration: 03/06/24 22:02 Dose: 1.9 units/hr, 1.9 mls/hr Documented By: VK Co-signed By: ESG Titration: 03/06/24 21:04 Dose: 1.9 units/hr, 1.9 mls/hr Documented By: VK Co-signed By: ESG Titration: 03/06/24 20:00 Dose: 2.4 units/hr, 2.4 mls/hr Documented By: ESG Co-signed By: VK Titration: 03/06/24 19:06 Dose: 2 units/hr, 2 mls/hr Documented By: VK Co-signed By: LAF Titration: 03/06/24 18:00 Dose: 2 units/hr, 2 mls/hr Documented By: LAF Co-signed By: WRS Titration: 03/06/24 17:00 Dose: 2 units/hr, 2 mls/hr Documented By: LAF Co-signed By: WRS Titration: 03/06/24 16:00 Dose: 2 units/hr, 2 mls/hr Documented By: LAF Co-signed By: WRS Titration: 03/06/24 15:50 Dose: 2 units/hr, 2 mls/hr Documented By: LAF Co-signed By: WRS Admin: 03/06/24 11:58 Dose: Not Given Documented By: LAF Co-signed By: WRS Titration: 03/06/24 08:30 Dose: 0 units/hr, 0 mls/hr Documented By: LAF Co-signed By: WRS Titration: 03/06/24 07:08 Dose: 2 units/hr, 2 mls/hr Documented By: ESG Co-signed By: LAF Titration: 03/06/24 06:09 Dose: 2 units/hr, 2 mls/hr Documented By: ESG Co-signed By: TP Titration: 03/06/24 05:14 Dose: 1.7 units/hr, 1.7 mls/hr Documented By: ESG Co-signed By: TP Titration: 03/06/24 04:00 Dose: 1.7 units/hr, 1.7 mls/hr Documented By: ESG Co-signed By: TP Titration: 03/06/24 03:01 Dose: 1.7 units/hr, 1.7 mls/hr Documented By: ESG Co-signed By: AMW Titration: 03/06/24 02:05 Dose: 1.4 units/hr, 1.4 mls/hr Documented By: ESG Co-signed By: AMW Titration: 03/06/24 01:07 Dose: 1.4 units/hr, 1.4 mls/hr Documented By: ESG Co-signed By: AMW Titration: 03/05/24 22:45 Dose: 1.4 units/hr, 1.4 mls/hr Documented By: ESG Co-signed By: TP Titration: 03/05/24 22:00 Dose: 0 units/hr, 0 mls/hr Documented By: ESG Co-signed By: TP Titration: 03/05/24 21:03 Dose: 2.4 units/hr, 2.4 mls/hr Documented By: ESG Co-signed By: AMW Titration: 03/05/24 20:12 Dose: 3 units/hr, 3 mls/hr Documented By: ESG Co-signed By: TP Titration: 03/05/24 19:19 Dose: 3.7 units/hr, 3.7 mls/hr Documented By: ESG Co-signed By: TP Titration: 03/05/24 19:12 Dose: 3.7 units/hr, 3.7 mls/hr Documented By: ESG Co-signed By: LAF Titration: 03/05/24 15:36 Dose: 6.2 units/hr, 6.2 mls/hr Documented By: LAF Co-signed By: WRS Titration: 03/05/24 14:15 Dose: 7.8 units/hr, 7.8 mls/hr Documented By: LAF Co-signed By: WRS Titration: 03/05/24 13:00 Dose: 7.8 units/hr, 7.8 mls/hr Documented By: GOSIA Co-signed By: KAYA Admin: 03/05/24 09:26 Dose: 6.5 units/hr, 6.5 mls/hr Documented By: HERIBERTO Co-signed By: NOREEN Parenteral Electrolytes (Plasma-Lyte A Ph 7.4) 1,000 mls @ 999 mls/hr IV .Q1H1M ONE Stop: 03/05/24 12:00 Last Infusion: 03/05/24 13:31 Dose: Infused Documented By: Admin: 03/05/24 12:04 Dose: 999 mls/hr Documented By: GOSIA Piperacillin Sod/Tazobactam (Sod 4.5 gm/ Dextrose) 100 mls @ 25 mls/hr IV Q8H [facility]; Protocol Stop: 03/07/24 11:59 Last Infusion: 03/07/24 06:08 Dose: Infused Documented By: Infusion: 03/07/24 03:40 Dose: 25 mls/hr Documented By: Admin: 03/07/24 02:06 Dose: 25 mls/hr Documented By: Infusion: 03/06/24 22:41 Dose: Infused Documented By: Admin: 03/06/24 18:38 Dose: 25 mls/hr Documented By: Infusion: 03/06/24 16:41 Dose: Infused Documented By: Admin: 03/06/24 11:54 Dose: 25 mls/hr Documented By: Infusion: 03/06/24 06:09 Dose: Infused Documented By: Infusion: 03/06/24 05:14 Dose: 25 mls/hr Documented By: Infusion: 03/06/24 03:01 Dose: 25 mls/hr Documented By: Infusion: 03/06/24 02:05 Dose: 25 mls/hr Documented By: Admin: 03/06/24 01:41 Dose: 25 mls/hr Documented By: Infusion: 03/05/24 23:00 Dose: Infused Documented By: Infusion: 03/05/24 19:56 Dose: 25 mls/hr Documented By: Admin: 03/05/24 18:35 Dose: 25 mls/hr Documented By: GOSIA Piperacillin Sod/Tazobactam (Sod 4.5 gm/ Dextrose) 100 mls @ 200 mls/hr IV ONE ONE; Protocol Stop: 03/05/24 12:29 Last Infusion: 03/05/24 13:30 Dose: Infused Documented By: [facility] Admin: 03/05/24 12:07 Dose: 200 mls/hr Documented By: LAF Lactated Ringer's (Lr) 1,000 mls @ 999 mls/hr IV .Q1H1M ONE Stop: 03/05/24 12:57 Last Infusion: 03/05/24 15:57 Dose: Infused Documented By: [facility] Admin: 03/05/24 13:00 Dose: 999 mls/hr Documented By: LAF Parenteral Electrolytes (Plasma-Lyte A Ph 7.4) 1,000 mls @ 125 mls/hr IV .Q8H [facility] Stop: 04/04/24 12:44 Last Infusion: 03/05/24 15:57 Dose: Infused Documented By: [facility] Admin: 03/05/24 13:01 Dose: 125 mls/hr Documented By: LAF Potassium Chloride 20 meq/ (Parenteral Electrolytes) 1,010 mls @ 125 mls/hr IV .Q8H5M [facility] Stop: 04/04/24 14:29 Last Infusion: 03/05/24 19:56 Dose: Infused Documented By: [facility] [place]: 03/05/24 14:43 Dose: 125 mls/hr Documented By: [facility] Potassium Chloride (K Ash / Wtr) 10 meq in 100 mls @ 100 mls/hr IV Q1H [facility] Stop: 03/05/24 20:29 Last Infusion: 03/05/24 20:53 Dose: Infused Documented By: Admin: 03/05/24 19:56 Dose: 100 mls/hr Documented By: Infusion: 03/05/24 19:41 Dose: Infused Documented By: [facility] [place]: 03/05/24 18:41 Dose: 100 mls/hr Documented By: LAF Potassium Chloride/Dextrose/Sod Cl (D5w And 1/2nss + 20meq Kcl) 20 meq in 1,000 mls @ 125 mls/hr IV .Q8H [facility] Stop: 04/04/24 18:29 Last Infusion: 03/06/24 12:33 Dose: Infused Documented By: [facility] Infusion: 03/06/24 06:35 Dose: 125 mls/hr Documented By: Infusion: 03/06/24 06:09 Dose: 200 mls/hr Documented By: Infusion: 03/06/24 05:14 Dose: 200 mls/hr Documented By: Admin: 03/06/24 05:03 Dose: 200 mls/hr Documented By: Infusion: 03/06/24 05:03 Dose: Infused Documented By: Infusion: 03/06/24 04:00 Dose: 200 mls/hr Documented By: Infusion: 03/06/24 03:44 Dose: 0 mls/hr Documented By: Infusion: 03/06/24 03:01 Dose: 200 mls/hr Documented By: Infusion: 03/06/24 02:05 Dose: 200 mls/hr Documented By: Admin: 03/05/24 23:56 Dose: 200 mls/hr Documented By: Infusion: 03/05/24 23:30 Dose: Infused Documented By: Infusion: 03/05/24 23:00 Dose: 200 mls/hr Documented By: Infusion: 03/05/24 21:26 Dose: 200 mls/hr Documented By: Infusion: 03/05/24 21:10 Dose: 125 mls/hr Documented By: Infusion: 03/05/24 19:56 Dose: 200 mls/hr Documented By: Admin: 03/05/24 18:35 Dose: 200 mls/hr Documented By: [facility] Magnesium Sulfate/Dextrose (Magnesium Sulfate / D5w) 1 gm in 100 mls @ 50 mls/hr IV Q2H [facility] Stop: 03/06/24 01:29 Last Infusion: 03/06/24 02:05 Dose: Infused Documented By: Admin: 03/05/24 23:30 Dose: 50 mls/hr Documented By: Infusion: 03/05/24 23:30 Dose: Infused Documented By: Infusion: 03/05/24 23:00 Dose: 50 mls/hr Documented By: Admin: 03/05/24 21:29 Dose: 50 mls/hr Documented By: ESG Vancomycin HCl 1,000 mg/ (Sodium Chloride) 270 mls @ 200 mls/hr IV NOW ONE Stop: 03/06/24 00:50 Last Infusion: 03/06/24 01:41 Dose: Infused Documented By: Admin: 03/05/24 23:55 Dose: 200 mls/hr Documented By: ESG Levetiracetam 1,000 mg/ Sodium (Chloride) 110 mls @ 440 mls/hr IV NOW STA Stop: 03/06/24 10:47 Last Infusion: 03/06/24 12:33 Dose: Infused Documented By: Admin: 03/06/24 12:09 Dose: 440 mls/hr Documented By: LAF Levetiracetam 500 mg/ Sodium (Chloride) 105 mls @ 420 mls/hr IV Q12H [facility] Stop: 04/05/24 10:29 Last Infusion: 03/06/24 12:34 Dose: Infused Documented By: Admin: 03/06/24 11:50 Dose: 420 mls/hr Documented By: LAF Lorazepam 2 mg/ Syringe 2 mls @ 2 mls/min IV NOW STA Stop: 03/06/24 12:16 Last Admin: 03/06/24 12:20 Dose: Not Given Documented By: LAF Lacosamide 200 mg/ Sodium (Chloride) 70 mls @ 140 mls/hr IV ONE ONE Stop: 03/06/24 13:14 Last Infusion: 03/06/24 16:43 Dose: Infused Documented By: Admin: 03/06/24 12:45 Dose: 140 mls/hr Documented By: LAF Lacosamide 100 mg/ Sodium (Chloride) 60 mls @ 120 mls/hr IV Q12H [facility] Stop: 04/05/24 18:59 Last Infusion: 03/07/24 07:26 Dose: Infused Documented By: Admin: 03/07/24 06:40 Dose: 120 mls/hr Documented By: Infusion: 03/06/24 20:58 Dose: Infused Documented By: Admin: 03/06/24 20:28 Dose: 120 mls/hr Documented By: PRAMOD Lorazepam 2 mg/ Syringe 2 mls @ 2 mls/min IV NOW STA Stop: 03/06/24 12:33 Last Admin: 03/06/24 12:32 Dose: 2 mls/min Documented By: GOSIA Levetiracetam 750 mg/ Sodium (Chloride) 107.5 mls @ 440 mls/hr IV Q12H SUMAYA Stop: 04/05/24 17:59 Last Infusion: 03/07/24 06:34 Dose: Infused Documented By: Admin: 03/07/24 06:15 Dose: 440 mls/hr Documented By: Infusion: 03/06/24 19:15 Dose: Infused Documented By: Admin: 03/06/24 18:05 Dose: 440 mls/hr Documented By: GOSIA Lactated Ringer's (Lr) 500 mls @ 999 mls/hr IV .Q31M ONE Stop: 03/06/24 13:30 Last Infusion: 03/06/24 16:43 Dose: Infused Documented By: Admin: 03/06/24 13:00 Dose: 999 mls/hr Documented By: GOSIA Amiodarone HCl/Dextrose (Nexterone / D5w) 150 mg in 100 mls @ 600 mls/hr IV NOW STA Stop: 03/06/24 13:45 Last Admin: 03/06/24 15:15 Dose: Not Given Documented By: GOSIA Amiodarone HCl/Dextrose (Nexterone / D5w) 360 mg in 200 mls @ 33.333 mls/hr IV ONE ONE Stop: 03/06/24 19:45 Last Infusion: 03/06/24 16:00 Dose: 0 mg/min, 0 mls/hr Documented By: GOSIA Co-signed By: STEVEN Admin: 03/06/24 15:17 Dose: 0.5 mg/min, 16.7 mls/hr Documented By: GOSIA Co-signed By: KAYA Amiodarone HCl/Dextrose (Nexterone / D5w) 360 mg in 200 mls @ 16.667 mls/hr IV .Q12H SUMAYA Stop: 04/05/24 19:44 Last Admin: 03/07/24 20:00 Dose: Not Given Documented By: Admin: 03/07/24 08:09 Dose: Not Given Documented By: Admin: 03/06/24 23:35 Dose: Not Given Documented By: PRAMOD Calcium Gluconate () 1,000 mg in 60 mls @ 240 mls/hr IV NOW STA Stop: 03/06/24 15:17 Last Infusion: 03/06/24 16:43 Dose: Infused Documented By: Admin: 03/06/24 15:23 Dose: 240 mls/hr Documented By: GOSIA Calcium Gluconate () 1,000 mg in 60 mls @ 240 mls/hr IV Q15M SUMAYA Stop: 03/07/24 09:14 Last Infusion: 03/07/24 10:39 Dose: Infused Documented By: Admin: 03/07/24 10:04 Dose: 240 mls/hr Documented By: Infusion: 03/07/24 09:57 Dose: Infused Documented By: Admin: 03/07/24 09:42 Dose: 240 mls/hr Documented By: EMANUEL Potassium Chloride (K Ash / Wtr) 10 meq in 100 mls @ 100 mls/hr IV Q1H SUMAYA Stop: 03/07/24 11:44 Last Infusion: 03/07/24 12:47 Dose: Infused Documented By: Admin: 03/07/24 11:48 Dose: 100 mls/hr Documented By: Infusion: 03/07/24 11:48 Dose: Infused Documented By: Admin: 03/07/24 11:12 Dose: 100 mls/hr Documented By: Infusion: 03/07/24 10:45 Dose: Infused Documented By: Admin: 03/07/24 09:45 Dose: 100 mls/hr Documented By: EMANUEL Lactated Ringer's (Lr) 1,000 mls @ 999 mls/hr IV .Q1H1M ONE; Protocol Stop: 03/07/24 09:39 Last Infusion: 03/07/24 10:40 Dose: Infused Documented By: Admin: 03/07/24 09:24 Dose: 999 mls/hr Documented By: EMANUEL Potassium Chloride (K Ash / Wtr) 10 meq in 100 mls @ 100 mls/hr IV Q1H SUMAYA Stop: 03/08/24 08:29 Last Admin: 03/08/24 09:14 Dose: 100 mls/hr Documented By: Infusion: 03/08/24 09:10 Dose: Infused Documented By: Admin: 03/08/24 08:10 Dose: 100 mls/hr Documented By: EMANUEL Insulin Aspart (Insulin Aspart Per Unit Charge) 0 units SC ACHS SUMAYA Stop: 04/04/24 11:29 Last Admin: 03/07/24 17:37 Dose: Not Given Documented By: EMANUEL Co-signed By: CHETNA Admin: 03/07/24 11:49 Dose: Not Given Documented By: EMANUEL Co-signed By: CHETNA Admin: 03/07/24 08:08 Dose: Not Given Documented By: EMANUEL Co-signed By: CHETNA Admin: 03/06/24 20:28 Dose: Not Given Documented By: PRAMOD Co-signed By: STEVEN Admin: 03/06/24 18:17 Dose: Not Given Documented By: GOSIA Co-signed By: KAYA Admin: 03/06/24 14:02 Dose: Not Given Documented By: GOSIA Co-signed By: WRS Admin: 03/06/24 11:58 Dose: Not Given Documented By: GOSIA Co-signed By: KAYA Admin: 03/05/24 21:04 Dose: Not Given Documented By: STEVEN Co-signed By: TUCKER Admin: 03/05/24 15:45 Dose: Not Given Documented By: Admin: 03/05/24 12:32 Dose: Not Given Documented By: GOSIA Insulin Glargine (Lantus Per Unit Charge) 6 units SC NOW ONE Stop: 03/07/24 19:16 Last Admin: 03/07/24 20:00 Dose: 6 units Documented By: STEVEN Co-signed By: TAVON Insulin Human Regular (Novolin-R Bolus From Bag) 6 units IV ONE ONE Stop: 03/05/24 09:31 Last Admin: 03/05/24 09:28 Dose: 6 units Documented By: HERIBERTO Co-signed By: NOREEN Lorazepam (Lorazepam 2 Mg/1 Ml Vial) Confirm Administered Dose 2 mg .ROUTE .STK- MED ONE Stop: 03/06/24 12:15 Last Admin: 03/06/24 12:20 Dose: 2 mg Documented By: GOSIA Metoprolol Tartrate (Metoprolol Tartrate 1 Mg/Ml Vial) Confirm Administered Dose 5 mg IV .STK-MED ONE Stop: 03/06/24 12:48 Last Admin: 03/06/24 12:57 Dose: Not Given Documented By: GOSIA Metoprolol Tartrate (Metoprolol Tartrate 1 Mg/Ml Vial) 2.5 mg IV NOW STA Stop: 03/06/24 12:51 Last Admin: 03/06/24 12:56 Dose: 2.5 mg Documented By: GOSIA Larson (Hhs Goal Range 250-350 Mg/Dl) 1 each N/A ONE ONE Stop: 03/05/24 09:05 Last Admin: 03/05/24 09:36 Dose: Not Given Documented By: HERIBERTO Larson (Stat Iv Infusion Titration Per Protocol) 1 each N/A NOW STA Stop: 03/05/24 09:05 Last Admin: 03/05/24 09:36 Dose: Not Given Documented By: HERIBERTO Larson (Pending D5 1/2ns+20meq Kcl Ivf) 1 each N/A Q2H SUMAYA Stop: 04/04/24 10:44 Last Admin: 03/05/24 17:25 Dose: Not Given Documented By: Admin: 03/05/24 17:25 Dose: Not Given Documented By: Admin: 03/05/24 17:25 Dose: Not Given Documented By: Admin: 03/05/24 15:46 Dose: Not Given Documented By: GOSIA Larson (Dka Goal Range 150-250 Mg/Dl) 1 each N/A ONE ONE Stop: 03/05/24 10:45 Last Admin: 03/05/24 13:00 Dose: 1 each Documented By: GOSIA Larson (Rapid Sequence Induction Bag) Confirm Administered Dose 1 each N/A .STK-MED ONE Stop: 03/06/24 13:27 Last Admin: 03/06/24 13:26 Dose: 1 each Documented By: GOSIA Ondansetron HCl (Ondansetron Inj 2 Mg/Ml 2 Ml Vial) 4 mg IV NOW STA Stop: 03/05/24 08:14 Last Admin: 03/05/24 08:26 Dose: 4 mg Documented By: NOREEN Phenylephrine HCl (Phenylephrine Hcl 25 Mg/250 Ml Nss) Confirm Administered Dose 25 mg IV .STK-MED ONE Stop: 03/06/24 13:06 Last Admin: 03/06/24 15:14 Dose: 25 mg Documented By: GOSIA Co-signed By: KAYA Description This is a 21 electrode EEG with a single channel dedicated to limited EKG. The electrodes were placed in accordance with the International 10-20 system. Interpretation The predominant background activity consists of an irregular 7 hz activity, of up to 30 mV in amplitude, seen symmetrically distributed over the posterior head regions bilaterally. The activity does not attenuate with alerting procedures. Photic stimulation was performed and elicited no change in the background activity and no abnormal responses were seen. Hyperventilation was not performed on this obtunded, intubated patient. In the initial few minutes of the recording there was considerable electrode artifact fixed by the line technician. Otherwise, a minimal amount of muscle or movement artifact activity was seen. The recording consisted of irregular 5 to 7 Hz activity seen in all head regions without much reactivity to stimuli. Throughout the recording, no focal abnormalities or potentially epileptogenic discharges were seen. In summary, this EEG was abnormal and revealed mild to moderate generalized dysrhythmia. No focal abnormalities or potentially epileptogenic discharges were seen. Clinical Correlation The abscence of potentially epileptogenic activity does not exclude a seizure disorder, since interictally, EEGs can be normal. The generalized slowing is i ndicative of encephalopathy, which could be due to a wide variety of causes and clinical correlation is necessary. [facility] EEG Procedure Codes Indication for Procedure (1) Non-convulsive status epilepticus: Neurology Neurology: 73181 EEG include record awake & drowsy
--- NOTE | 2024-03-08 09:55 | Neurology Progress Note ---
Date of Service March 08, 2024 Assessment & Plan (1) Acute metabolic encephalopathy: (2) Non-convulsive status epilepticus: (3) Severe sepsis: (4) Hyperosmolar hyperglycemic state (HHS): Plan Patient presented with severe diabetes with hyperosmolar hyperglycemic state and a severe encephalopathy. She also has sepsis likely originating from E. coli UTI. Patient was having subclinical status epilepticus in the morning of March 06, broken with IV Ativan. EEG March 07, showed a 22-second episode of left-sided potentially epileptogenic activity of a subclinical nature (see report). I suspect that the subclinical seizures 03-06-24 were triggered by the relatively rapid rate of change of lowering her glucose (that is irritable to the brain and can create seizures). The patient has longstanding diabetes and diabetic neuropathy. This will hinder certain lower extremity response testing and reflexes. Today the patient is a little more responsive than yesterday. EEG today showed no seizure activity and had mild to moderate generalized slowing consistent with her encephalopathy. There was nothing focal. Recommendations: 1. Continue levetiracetam 250 mg IV every 6 hours for now. 2. Continue lacosamide 150 mg IV every 12 hours for now. 3. If she continues to have seizure activity I will likely add valproic acid IV and try to taper off levetiracetam. 4. Keep off PREVENTIVE MAINTENANCE ENGINEER sedating medications as much as possible 5. I see no reason for further EEG is unless she has a clinical change. Overall, I spent a total of 50 minutes including review of records, direct evaluation the patient at bedside, report generation, and discussion of the case with the RN at bedside, and Dr. Ortiz, including differential diagnosis and treatment options. Admission and Anticipated Discharge Date Admission Date: March 05, 2024 Subjective Patient has had no obvious seizures over the last 24 hours, according to nursing staff. By the end of the day March 07, she was starting to move around a little bit more and react/grimace to stimuli. Earlier this morning, the patient reached up and pulled out her tube. She was then placed back on propofol. By the time I examined her today she had been off propofol for approximately 45 minutes. Blood pressure is 110/62 with pulse in the 50s. She had a recorded temperature of 36.1 and then 35.3. CBC showed an improvement in her white count and stable anemia with hemoglobin hematocrit of 8.4 and 24.4. Glucose was 260. CHEM profile was unremarkable except for a low calcium of 7.9 and a BUN of 31 with a creatinine of 1.7. She continues on ceftriaxone for her sepsis. She remains on levetiracetam 250 mg every 6 hours and lacosamide 150 mg every 12 hours. EEG was obtained today and showed no seizure activity. There was mild to moderate generalized slowing (see separate report). Results & Data Vital Signs (Past 12 Hours) Vital Signs Temp Pulse Resp BP Pulse Ox O2 Del Method O2 Flow Rate 03/08/24 07:18 58 L 16 98 03/08/24 06:00 36.1 C L 60 16 110/62 99 Mechanical Vent 03/08/24 05:00 36.1 C L 62 17 119/70 99 Mechanical Vent 03/08/24 04:00 36.2 C L 65 19 125/76 97 Oxymask 4 03/08/24 04:00 03/08/24 02:02 63 19 98 03/08/24 02:00 36.1 C L 64 17 123/75 99 Mechanical Vent 03/08/24 01:00 36.1 C L 16 115/71 98 Mechanical Vent 03/08/24 00:00 36.2 C L 65 17 99 03/08/24 00:00 121/76 03/08/24 00:00 03/08/24 00:00 65 03/07/24 23:00 36.2 C L 64 16 117/73 99 Mechanical Vent 03/07/24 22:46 65 17 99 03/07/24 22:00 36.2 C L 67 16 121/70 100 Mechanical Vent FiO2 03/08/24 07:18 30 03/08/24 06:00 30 03/08/24 05:00 30 03/08/24 04:00 03/08/24 04:00 30 03/08/24 02:02 30 03/08/24 02:00 30 03/08/24 01:00 30 03/08/24 00:00 03/08/24 00:00 03/08/24 00:00 30 03/08/24 00:00 03/07/24 23:00 03/07/24 22:46 30 03/07/24 22:00 30 Exam (Neuro) Physical Exam: Patient was lying with her eyes closed fairly still although she had some spontaneous movement of her right upper extremity lifting her hand up towards her head with some grimacing of the face occasionally. She was not breathing much beyond the ventilator rate of 16. Eyes open passively but not as easily as yesterday. Pupils were reactive to light. There were were normal oculocephalics with head turning and no nystagmus. There was no obvious facial droop but she was intubated. She had a positive gag and cough. There was some lesser spontaneous movement of the legs and left upper extremity compared to the right upper extremity which had more spontaneous movement. Occasionally, she would spontaneously open her eyes and at 1 point I thought she fixed gaze on me for secondary to but this was not consistent. Occasionally she would have no reaction to shout or gentle shaking and at other times she seemed to respond. She would not follow any one-step commands. Tone was mildly increased in the limbs and she withdrew to deep pain in all 4 limbs legs greater than arms. Reflexes were 2/4 in the biceps triceps brachial radialis and quadriceps tendons bilaterally. Achilles tendon reflexes were trace on the left and absent on the right, and toes were downgoing to plantar stimulation PG Care Time/CCT Total # of Minutes Spent Total Time Spent with Patient: Total time spent is greater than 50% in coordination of care (as documented) at patient's floor/unit and/or counseling patient: Coding Level of Care Code 19017 SUB INP/OBS CARE 3/50MIN Diagnoses Acute metabolic encephalopathy G93.41 Non-convulsive status epilepticus G40.901 Severe sepsis A41.9; R65.20 Hyperosmolar hyperglycemic state (HHS) E11.00 Time Spent (min) 50
--- NOTE | 2024-03-08 13:12 | Critical Care Progress Note ---
Date of Service March 08, 2024 Assessment & Plan (1) Hyperosmolar hyperglycemic state (HHS): (2) Lactic acidosis: (3) Complicated UTI (urinary tract infection): (4) Severe sepsis: (5) Elevated troponin: (6) ONEIL (acute kidney injury): (7) Acute metabolic encephalopathy: (8) Pulmonary edema: Plan Impression: 68-year-old female with a history of medical noncompliance, poorly controlled diabetes mellitus, hypertension and right bundle branch block who presented with altered mental status and severe HHS/DKA. 24-hour events: Long discussion with family. Overnight the patient had improvement in her mental status and appeared to have some purposeful movement necessitating reinitiation of propofol. Repeat EEG completed this morning. Family has elected to pursue liberation for mechanical ventilation with no plans for reintubation Recommendations: 1. Neurologic: Nonconvulsive status now resolved on EEG. Currently on Vimpat and Keppra. Discussed with neurology this morning. Continue Keppra dosing and continue Vimpat. Can likely transition to oral if the patient is doing well. 2. Cardiovascular: Septic shock. Echocardiogram with preserved ejection fraction. Resolved. Had narrow complex tachycardia yesterday status post attempted cardioversion and initiation of amiodarone now in normal sinus. Lactate resolved. Continue heparin infusion. Off amiodarone. 3. Pulmonary: Intubated due to altered mental status. Improved this morning and extubated. 4. ID: Urine growing 2 species of E. coli which are pansensitive. Likely urosepsis. Day # antibiotics, currently on Rocephin 5. Renal: Acute kidney injury: Baseline creatinine less than 1. Improvement in creatinine today. Acid-base status, electrolytes, and volume status stable. Consider initiation of diuretics as tolerated. 6. GI: Can start p.o. intake as mental status allows 7. Endocrine: Severe DKA/HNK. Continue insulin infusion for now. Okay to transition to subcu regiment per pharmacy 8. Heme-onc: Anemia with leukocytosis. Suspect related to infection. No evidence of acute blood loss. No indication for transfusion currently. Patient is clinically improved. Will see how she does and likely transfer to the floor later today. Family was updated at bedside. Admission and Anticipated Discharge Date Admission Date: March 05, 2024 Subjective Patient remains intubated and sedated Review of Systems Review of Systems: Unobtainable due to endotracheal tube Physical Exam Constitutional: WD/WN, vitals as above + mechanically ventilated Neck: trachea midline, no thyromegaly Respiratory: normal respiratory effort, lungs clear to auscultation Cardiovascular: RRR, no murmur, no edema Gastrointestinal (Abdomen): normal bowel sounds, soft, nontender, no hepatosplenomegaly Musculoskeletal: Extremities: extremities normal to inspection Skin: no rashes, warm and dry Lymphatic: no cervical lymphadenopathy Results & Data Results & Data Vital Signs (Past 12 Hours) Vital Signs Temp Pulse Resp BP Pulse Ox O2 Del Method O2 Flow Rate 03/08/24 12:00 130/80 03/08/24 12:00 35.2 C L 68 18 92 03/08/24 11:00 35.1 C L 66 16 92 03/08/24 11:00 115/77 03/08/24 10:35 35.3 C L 63 14 91 03/08/24 09:01 35.3 C L 59 L 16 100 03/08/24 09:00 127/76 03/08/24 08:59 35.3 C L 58 L 16 100 03/08/24 08:00 35.6 C L 57 L 16 99 03/08/24 08:00 113/69 03/08/24 08:00 Mechanical Vent 03/08/24 08:00 03/08/24 07:43 35.7 C L 57 L 16 99 03/08/24 07:18 58 L 16 98 03/08/24 06:00 36.1 C L 60 16 110/62 99 Mechanical Vent 03/08/24 05:00 36.1 C L 62 17 119/70 99 Mechanical Vent 03/08/24 04:00 36.2 C L 65 19 125/76 97 Oxymask 4 03/08/24 04:00 03/08/24 02:02 63 19 98 03/08/24 02:00 36.1 C L 64 17 123/75 99 Mechanical Vent FiO2 03/08/24 12:00 03/08/24 12:00 03/08/24 11:00 03/08/24 11:00 03/08/24 10:35 03/08/24 09:01 03/08/24 09:00 03/08/24 08:59 03/08/24 08:00 03/08/24 08:00 03/08/24 08:00 30 03/08/24 08:00 30 03/08/24 07:43 03/08/24 07:18 30 03/08/24 06:00 30 03/08/24 05:00 30 03/08/24 04:00 03/08/24 04:00 30 03/08/24 02:02 30 03/08/24 02:00 30 Critical Care Results & Data Vital Signs (Past 12 Hours) Vital Signs Temp Pulse Resp BP Pulse Ox O2 Del Method O2 Flow Rate 03/08/24 12:00 130/80 03/08/24 12:00 35.2 C L 68 18 92 03/08/24 11:00 35.1 C L 66 16 92 03/08/24 11:00 115/77 03/08/24 10:35 35.3 C L 63 14 91 03/08/24 09:01 35.3 C L 59 L 16 100 03/08/24 09:00 127/76 03/08/24 08:59 35.3 C L 58 L 16 100 03/08/24 08:00 35.6 C L 57 L 16 99 03/08/24 08:00 113/69 03/08/24 08:00 Mechanical Vent 03/08/24 08:00 03/08/24 07:43 35.7 C L 57 L 16 99 03/08/24 07:18 58 L 16 98 03/08/24 06:00 36.1 C L 60 16 110/62 99 Mechanical Vent 03/08/24 05:00 36.1 C L 62 17 119/70 99 Mechanical Vent 03/08/24 04:00 36.2 C L 65 19 125/76 97 Oxymask 4 03/08/24 04:00 03/08/24 02:02 63 19 98 03/08/24 02:00 36.1 C L 64 17 123/75 99 Mechanical Vent FiO2 03/08/24 12:00 03/08/24 12:00 03/08/24 11:00 03/08/24 11:00 03/08/24 10:35 03/08/24 09:01 03/08/24 09:00 03/08/24 08:59 03/08/24 08:00 03/08/24 08:00 03/08/24 08:00 30 03/08/24 08:00 30 03/08/24 07:43 03/08/24 07:18 30 03/08/24 06:00 30 03/08/24 05:00 30 03/08/24 04:00 03/08/24 04:00 30 03/08/24 02:02 30 03/08/24 02:00 30 Lab & Micro Results (Past 24 Hours) RBC 2.84 M/uL (4.20-5.40) L 03/08/24 WBC 12.56 K/ul (4.8-10.8) H 03/08/24 Hgb 8.4 g/dl (12.0-16.0) L 03/08/24 Hct 24.4 % (37.0-47.0) L 03/08/24 MCV 85.9 fL (80.0-100.0) 03/08/24 MCH 29.6 pg (25.0-34.0) 03/08/24 MCHC 34.4 g/dL (32.0-36.0) 03/08/24 RDW Standard Deviation 40.4 fL (36.4-46.3) 03/08/24 RDW Coefficient of Variation 13.1 % (11.5-14.5) 03/08/24 Plt Count 240 K/uL (130-400) 03/08/24 MPV 9.8 fL (9.4-12.4) 03/08/24 Neutrophils (%) (Auto) 77.9 % 03/08/24 Lymphocytes (%) (Auto) 14.3 % 03/08/24 Monocytes # (Auto) 0.70 K/uL (0.11-0.59) H 03/08/24 Eosinophils # (Auto) 0.12 K/uL (0.00-0.50) 03/08/24 Immature Granulocyte % (Auto) 1.0 % 03/08/24 Neutrophils # (Auto) 9.80 K/uL (1.40-6.50) H 03/08/24 Lymphocytes # (Auto) 1.79 K/uL (1.20-3.40) 03/08/24 Monocytes # (Auto) 0.70 K/uL (0.11-0.59) H 03/08/24 Eosinophils # (Auto) 0.12 K/uL (0.00-0.50) 03/08/24 Basophils # (Auto) 0.02 K/uL (0.00-0.20) 03/08/24 Immature Granulocyte # (Auto) 0.13 K/uL (0.01-0.20) 4 Na 135 mmol/L (136-145) L 03/08/24 K 3.8 mmol/L (3.5-5.1) 03/08/24 Cl 107 mmol/L (98-107) 03/08/24 CO2 22 mmol/L (21-32) 03/08/24 Anion Gap 6 (3-11) 03/08/24 BUN 31 mg/dl (6-23) H 03/08/24 Creatinine 1.72 mg/dl (0.6-1.2) H 03/08/24 Estimated GFR ( Amer) 35.3 ml/min 03/08/24 Estimated GFR (Non-Af Amer) 30.5 ml/min 03/08/24 BUN/Creatinine Ratio 18.0 (10-20) 03/08/24 Glu 260 mg/dl (70-99(Fasting)) H 03/08/24 Ca 7.9 mg/dl (8.6-10.3) L 03/08/24 Phosphorus Level 3.8 mg/dl (2.5-4.9) 03/08/24 Mg 2.0 mg/dl (1.7-2.4) 03/08/24 04:13 Calcium Level 7.9 mg/dl (8.6-10.3) L 03/08/24 04:13 Jacob Test Pass 03/08/24 04:08 Microbiology 03/05/24 08:20 Aerobic Blood Culture - Preliminary Blood No growth in Aerobic bottle after 48 hours. Anaerobic Blood Culture - Preliminary No growth in Anaerobic bottle after 48 hours. 03/05/24 08:31 Aerobic Blood Culture - Preliminary Blood No growth in Aerobic bottle after 48 hours. Anaerobic Blood Culture - Preliminary No growth in Anaerobic bottle after 48 hours. I & O Totals 24 Hours 03/07/24 03/08/24 03/09/24 06:59 06:59 06:59 Intake Total 2423.735 / 2423.735 2532.158 / 2532.158 812.707 / 812.707 Output Total 1255 / 1255 610 / 610 Balance 1168.735 / 2878.732 8541.158 / 1922.158 812.707 / 812.707 Cumulative 03/05/24 07:48 thru 03/08/24 11:50 Intake Total 79689.296 Output Total 4815 Balance 60750.296 RT Ventilator Mngmt (Last Documented) Ventilator Ordered Settings Ventilator Support Mode Assist Control 03/08/24 08:00 Respiratory Rate 18 03/08/24 12:00 Ventilator Tidal Volume 300 03/08/24 08:00 Setting Minute Ventilation 4.8 03/08/24 07:18 Positive End Expiratory 5 03/08/24 08:00 Pressure Fraction of Inspired Oxygen 30 03/08/24 08:00 Peak Inspiratory Flow 27 03/08/24 07:18 Ventilator - PT Measurements Respiratory Rate 18 Exhaled Tidal Volume 300 Minute Ventilation 4.8 Peak Inspiratory Airway 11 Pressure Plateau Pressure 9.0 Respiratory Cycle Inspiratory: 1:3.2 Expiratory Ratio Inspiratory Phase Time 0.90 End-Tidal CO2 29 Static Lung Compliance 75.00 Dynamic Lung Compliance 50.00 Normal Static Lung Compliance 48.00 Patient Measurements Comment intubated for airway protection Coding Level of Care Code 17799 SUB INP/OBS CARE 3/50MIN Diagnoses Hyperosmolar hyperglycemic state (HHS) E11.00 Lactic acidosis E87.20 Complicated UTI (urinary tract infection) N39.0 Severe sepsis A41.9; R65.20 Elevated troponin R79.89 ONEIL (acute kidney injury) N17.9 Acute metabolic encephalopathy G93.41 Pulmonary edema J81.1
[2024-03-08 14:48] LABS: ANTI-Xa, UFH(UnfractionatedHep 0.72 IU/ml (0.3-0.7)
[2024-03-08] MEDS: LANTUS PER UNIT CHARGE SC SCH (20:17)
--- NOTE | 2024-03-08 22:59 | Hospitalist Progress Note ---
Date of Service March 08, 2024 Assessment & Plan (1) Sepsis: Plan: Septic shock suspected from UTI: E. coli Lactate 4.6 -> 6.1 after 2L NSS bolus, additional Plasma-lyte bolus 1L ordered, continue to trend lactate Suspected urinary source (CT A/P ordered) +/- aspiration Broad spectrum antibiotics with cefepime and vancomycin given in the ER, will switch to vancomycin/Zosyn Follow up blood and urine cultures On 03/06 Patient remains in the iCU Consulted Neurolgy Concern for possible central pontine myelinosis due to severe osmotic chages. Ordered MRI of brain. ONEIL improving. However, patient remains encephalopathic and not responsive On 03/07 Patient vented since PM of 03/06 Patient had subclinical status epilepticus on March 06, broke with ativan Appreciate input from neurology Decrease keppra and continue vimpat In regards to a fib, treated with amiodarone. On 03/08 Patient was extubated after family meeting with senior stereo compiler team lead and DNR/DNI Family hopeful patient will improve. Patient had an EEG which is negative for seizure activity. Awaiting clinical evolution. If no improvement in 48 hours, may need to consider palliative approach. Downgraded from unit. (2) Type 2 diabetes mellitus with hyperosmolar hyperglycemic state (HHS): Plan: Secondary to stopping diabetes medications HbA1C 9.2 in September, repeat with AM labs Insulin aim 150-250 due to concurrent DKA Half NSS + 20 meq KCl @ 150ml/hr after fluid resuscitation, add D5 once glucose within aim q4h BMP/pH/PO/Mg (3) DKA (diabetic ketoacidosis): Plan: Mostly HHS but mild DKA with ketonuria, bicarb 17, anion gap 21 (although suspect most of this is lactic acidosis) (4) Unresponsive state: Plan: ABG currently with appropriately low CO2 and tachypnea Continue to monitor for deterioration however she is not for intubation (5) Elevated troponin: Plan: Suspect demand related given etiologies as above New RBBB and TWI on EKG, doubtful PE given no hypoxia Trend troponin TTE (6) Hypertension: Plan: Hold all anti-hypertensives at this time (7) ONEIL (acute kidney injury): Plan: Suspected pre-renal Amado catheter inserted IV fluids as above (8) UTI (urinary tract infection): Plan VTE Prophylaxis - heparin 5000 units SQ BID Diet - NPO Disposition - admit to ICU Admission and Anticipated Discharge Date Admission Date: March 05, 2024 Subjective Oatient is unresponsive. Review of Systems Review of Systems: Unobtainable due to cognitive status Physical Exam Physical Exam: Patient unresponsive. Constitutional: + not well nourished and no acute distre ss Respiratory: normal respiratory effort; no respiratory distress Auscultation: lungs clear to auscultation bilaterally Cardiovascular: Rate/Rhythm: regular rate and regular rhythm Heart Sounds: no murmur Gastrointestinal (Abdomen): normal bowel sounds, soft, nontender, no hepatosplenomegaly Skin: no rashes, warm and dry Neurologic: + does not move all extremities and + no t awake Psychiatric: Orientation: + not alert (GCS3 (E1V1M1)) Results & Data Results & Data Vital Signs (Past 12 Hours) Vital Signs Temp Pulse Pulse Resp BP BP Pulse Ox 03/08/24 22:43 36.3 C L 69 18 146/80 H 95 03/08/24 18:35 36.3 C L 73 16 147/84 H 95 03/08/24 16:00 131/75 03/08/24 16:00 35.6 C L 71 20 96 03/08/24 15:40 134/81 03/08/24 15:40 35.6 C L 70 17 97 03/08/24 15:00 135/79 03/08/24 15:00 35.4 C L 69 15 91 03/08/24 14:00 132/74 03/08/24 14:00 35.5 C L 68 7 L 91 03/08/24 13:00 129/76 03/08/24 13:00 35.4 C L 68 16 98 03/08/24 12:00 130/80 03/08/24 12:00 35.2 C L 68 18 92 03/08/24 11:00 35.1 C L 66 16 92 03/08/24 11:00 115/77 O2 Del Method 03/08/24 22:43 Room Air 03/08/24 18:35 Room Air 03/08/24 16:00 03/08/24 16:00 03/08/24 15:40 03/08/24 15:40 03/08/24 15:00 03/08/24 15:00 03/08/24 14:00 03/08/24 14:00 03/08/24 13:00 03/08/24 13:00 03/08/24 12:00 03/08/24 12:00 03/08/24 11:00 03/08/24 11:00 PG Care Time/CCT Total # of Minutes Spent Total Time Spent with Patient: Total time spent is greater than 50% in coordination of care (as documented) at patient's floor/unit and/or counseling patient: Coding Level of Care Code 28489 SUB INP/OBS CARE 3/50MIN Diagnoses Sepsis A41.9 Type 2 diabetes mellitus with hyperosmolar hyperglycemic state (HHS) E11.00 DKA (diabetic ketoacidosis) E11.10 Unresponsive state R41.89 Elevated troponin R79.89 Hypertension I10 ONEIL (acute kidney injury) N17.9 UTI (urinary tract infection) N39.0
--- NOTE | 2024-03-09 04:05 | Electrocardiogram Report ---
Test Reason : Blood Pressure : / mmHG Vent. Rate : 064 BPM Atrial Rate : 064 BPM P-R Int : 110 ms QRS Dur : 090 ms QT Int : 494 ms P-R-T Axes : 021 032 061 degrees QTc Int : 509 ms Sinus rhythm with short LA Prolonged QT Abnormal ECG When compared with ECG of 06-MAR-2024 22:35, QT has shortened Confirmed by Beny Muñoz ([id number]) on 03/09/2024 4:05:05 AM Referred By: REFERRED SELF Confirmed By:Beny Muñoz
[2024-03-09 06:55] LABS: ANTI-Xa, UFH(UnfractionatedHep 0.62 IU/ml (0.3-0.7)
[2024-03-09 07:13] LABS: BUN Creatinine Ratio 17.5 (10-20); Calcium 7.6 mg/dl (8.6-10.3); Creatinine Clr Calc Pharmacy 36.2 ml/min; Est GFR (African American) 44.1 ml/min; Est GFR (Non-African American) 38.1 ml/min; Phosphorus 3.2 mg/dl (2.5-4.9); Potassium 3.4 mmol/L (3.5-5.1)
[2024-03-09 07:22] LABS: Basophils # (auto) 0.03 K/uL (0.00-0.20); Basophils % (auto) 0.3 %; Eosinophils # (auto) 0.21 K/uL (0.00-0.50); Eosinophils % (auto) 2.4 %; Hematocrit (blood only) 27.4 % (37.0-47.0); Hemoglobin 9.3 g/dl (12.0-16.0); Immature Granulocytes # (auto) 0.27 K/uL (0.01-0.20); Immature Granulocytes % (auto) 3.1 %; Lymphocytes # (auto) 1.31 K/uL (1.20-3.40); Lymphocytes % (auto) 14.9 %; Mean Corpuscular Hemoglobin 29.3 pg (25.0-34.0); Mean Corpuscular Hgb Conc 33.9 g/dL (32.0-36.0); Mean Corpuscular Volume 86.4 fL (80.0-100.0); Mean Platelet Volume 9.7 fL (9.4-12.4); Monocytes # (auto) 0.68 K/uL (0.11-0.59); Monocytes % (auto) 7.7 %; Neutrophils # (auto) 6.31 K/uL (1.40-6.50); Neutrophils % (auto) 71.6 %; Platelet Count 247 K/uL (130-400); RDW Coefficient of Variation 12.8 % (11.5-14.5); RDW Standard Deviation 40.2 fL (36.4-46.3); Red Blood Count 3.17 M/uL (4.20-5.40); White Blood Count 8.81 K/ul (4.8-10.8)
--- NOTE | 2024-03-09 08:36 | Neurology Progress Note ---
Date of Service March 09, 2024 Assessment & Plan (1) Acute metabolic encephalopathy: (2) Non-convulsive status epilepticus: (3) Severe sepsis: (4) Hyperosmolar hyperglycemic state (HHS): Plan Patient presented with severe diabetes with hyperosmolar hyperglycemic state and a severe encephalopathy. She also has sepsis likely originating from E. coli UTI. Patient was having subclinical status epilepticus in the morning of March 06, broken with IV Ativan. EEG March 07, showed a 22-second episode of left-sided potentially epileptogenic activity of a subclinical nature (see report). I suspect that the subclinical seizures 03-06-24 were triggered by the relatively rapid rate of change of lowering her glucose (that is irritable to the brain and can create seizures). The patient has longstanding diabetes and diabetic neuropathy. This will hinder certain lower extremity response testing and reflexes. EEG 03/08 showed no seizure activity and had mild to moderate generalized slowing consistent with her encephalopathy. There was nothing focal. Today the patient was more easily aroused and had more spontaneous movement. She was saying some words but, as yet, she is not answering questions or following commands Recommendations: 1. Continue levetiracetam 250 mg IV every 6 hours for now. 2. Continue lacosamide 150 mg IV every 12 hours for now. 3. If she continues to have seizure activity I will likely add valproic acid IV and try to taper off levetiracetam. 4. The longer she goes without seizure activity, however, I will likely taper off levetiracetam first and continue with lacosamide. 5. Keep off HUM[employer] RES[employer] SAFETY MANAGER sedating medications as much as possible 6. I see no reason for further EEG is unless she has a clinical change. 7. Increase activity as tolerated and consider physical, occupational, and speech therapy consults. Overall, I spent a total of 50 minutes including review of records, direct evaluation the patient at bedside, report generation, and discussion of the case with the RN at bedside, and Dr. Priest, including differential diagnosis and treatment options. Admission and Anticipated Discharge Date Admission Date: March 05, 2024 Subjective Nursing reports no issues overnight and there were no seizures Blood pressure is 144/77 with a temperature of 36.3 pulse in the 60s and regular. She has been in normal sinus rhythm in the 60s overnight. CBC today showed a normal white count (for the first time in several days) and a slightly improved hemoglobin and hematocrit. BUN and creatinine were slightly improved and glucose was 215. Calcium remains low at 7.6. The patient did not appear to be in pain although she will occasionally cough grimace afterwards. Otherwise she was lying comfortably in bed. Results & Data Vital Signs (Past 12 Hours) Vital Signs Temp Pulse Pulse Resp BP Pulse Ox O2 Del Method 03/09/24 07:33 36.3 C L 69 18 144/77 H 95 Room Air 03/09/24 03:36 36.3 C L 70 15 132/80 95 Room Air 03/09/24 00:55 Room Air 03/08/24 23:21 36.3 C L 67 16 127/76 96 Room Air 03/08/24 22:43 36.3 C L 69 18 146/80 H 95 Room Air 03/08/24 21:55 66 Exam (Neuro) Physical Exam: The patient was lying in bed with her eyes closed fairly still. On occasion she would have a slight cough and grimace. She would turn her head to the left or the right. She had some spontaneous movement of all 4 limbs. With gentle voice she did not arouse. With louder voice and gentle stimulation she did open her eyes and occasionally make eye contact. She would say a few wo rds and tended to perseverate but would not actually follow one-step commands or specifically answer any questions. Eyes were front pupils were 4 to 5 mm bilaterally and reactive. There was no facial droop. Tongue was midline. Neck was supple. There were no tremors or abnormal involuntary movements noted. Tone was reasonable in the limbs without spasticity. She did have some resistance in her arms when I manipulated them and some director of medical education bilaterally. All 4 limbs withdrew to stimuli. Reflexes were 2/4 in the biceps triceps brachial radialis and quadriceps tendons bilaterally. Achilles reflexes were absent and toes were downgoing with plantar stimulation bilaterally. PG Care Time/CCT Total # of Minutes Spent Total Time Spent with Patient: Total time spent is greater than 50% in coordination of care (as documented) at patient's floor/unit and/or counseling patient: Coding Level of Care Code 79490 SUB INP/OBS CARE 3/50MIN Diagnoses Acute metabolic encephalopathy G93.41 Non-convulsive status epilepticus G40.901 Severe sepsis A41.9; R65.20 Hyperosmolar hyperglycemic state (HHS) E11.00
--- NOTE | 2024-03-09 08:57 | Hospitalist Progress Note ---
Date of Service March 09, 2024 Assessment & Plan (1) Sepsis: Plan: Septic shock, suspected from UTI: E. coli present on admission, on ceftriaxone ( abtx started on admission 03/05/24) Follow up blood and urine cultures extubated 03/08 Consulted Neurology, patient remains encephalopathic and has spontaneous movement keppra and continue vimpat, Patient had an EEG which is negative for seizure activity. Concern for possible central pontine myelinosis due to severe osmotic changes. Ordered MRI of brain. metabolic changes improving A fib, treated with amiodarone. Hold all anti-hypertensives at this time (2) Type 2 diabetes mellitus with hyperosmolar hyperglycemic state (HHS): Plan: Secondary to stopping diabetes medications HbA1C 9.2 in September 2023 glycemic pharmacy to treat DKA (3) Elevated troponin: Plan: Suspect demand related given etiologies as above New RBBB and TWI on EKG, TTE performed 03/05 showing left ventricular systolic function normal moderate mitral regurgitation right systolic pressure normal (4) ONEIL (acute kidney injury): Plan: Suspected pre-renal Amado catheter IV fluids to keep hydration will moderate taking n.p.o. consider PPI at this close for much longer Plan VTE Prophylaxis - heparin 5000 units SQ BID Diet - NPO until mental status improves Admission and Anticipated Discharge Date Admission Date: March 05, 2024 Subjective pt does awaken to voice, looks around but does not speak, still not able to eat as not able to clear her mental status family at bedside and updated Physical Exam Physical Exam: pt appears stable, does arouse to voice cardiac is regular lungs are clear but diminished abd is soft and non tender Results & Data Results & Data Vital Signs (Past 12 Hours) Vital Signs Temp Pulse Pulse Resp BP Pulse Ox O2 Del Method 03/09/24 07:33 97.3 F L 69 18 144/77 H 95 Room Air 03/09/24 03:36 97.3 F L 70 15 132/80 95 Room Air 03/09/24 00:55 Room Air 03/08/24 23:21 97.3 F L 67 16 127/76 96 Room Air 03/08/24 22:43 97.3 F L 69 18 146/80 H 95 Room Air 03/08/24 21:55 66 Laboratory Results Reviewed CBC reviewed chemistry ordered repletion of hypokalemia Discussed glycemic limits with glycemic pharmacist PG Care Time/CCT Total # of Minutes Spent Total Time Spent with Patient: Total time spent is greater than 50% in coordination of care (as documented) at patient's floor/unit and/or counseling patient: Coding Level of Care Code 53396 SUB INP/OBS CARE 3/50MIN Diagnoses Sepsis A41.9 Type 2 diabetes mellitus with hyperosmolar hyperglycemic state (HHS) E11.00 Elevated troponin R79.89 ONEIL (acute kidney injury) N17.9
[2024-03-09] MEDS: POTASSIUM CHLORIDE / WTR 10 MEQ/100 ML PLCT IV SCH (09:52)
--- NOTE | 2024-03-09 14:56 | Pharmacy Report ---
Pharmacy Glycemic Short Note 2 - Date of Service March 09, 2024 - Glycemic Short BSG Results (Last 24 hours): 03/08/24 03/08/24 03/08/24 16:14 19:57 23:54 Glucose POC Glucose 258 H 250 H 223 H 03/09/24 03/09/24 03/09/24 04:08 06:27 07:49 Glucose 215 H POC Glucose 215 H 207 H 03/09/24 11:17 Glucose POC Glucose 212 H OUTPATIENT ANTIDIABETIC REGIMEN: * Patient discontinued anti-DM meds * A1c = 15.9% (03/05/24) ASSESSMENT: 03/09: * Carol received 9 units of insulin yesterday (6 were basal) * Fasting BSG within goal range (200-250mg/dL), discussed goal range with Dr. Priest, ok to decrease to 150-180mg/dL today, will allow for extra basal insulin (increase ~15%) if BSGs above new goal range * She is still NPO, continue current correction factor, if diet is ordered will likely need carbohydrate coverage * She continues on the heparin drip and IV ceftriaxone 03/07 * BSG goal range of 250-350mg/dL to continue for the next 24 hrs per [employer] * Calculated effective serum osmo 287 this AM * BSGs running in the 220s with insulin drip infusing at 0.6unit/hr this AM, now titrated down to 0.4units/hr. * Phenylephrine weaned off. Propofol remains off. Patient remains intubated. Heparin drip (in D5W) continues to infuse. Amiodarone gtt off. * Continue low dose insulin drip for now as this offers more precision in maintaining BSGs in current range - could consider transition to SQ Novolog Q 4 hr regimen in the near future 03/06 * Carol is a 68 yo T2DM admitted with [facility]. BSG 1069 on arrival to the ED. She was started on IV insulin infusion per DKA/[facility] protocol. * Patient is prescribed basal insulin and metformin but stopped these medications about 2 months ago due to side effects. * Electrolyte abnormalities improved on 03/06 am, however worsening mental status. Calculated serum osmolality = 299. * Neurology consulted due to concerns of seizure activity. New onset A. fib, phenylephrine drip started for hypotension and patient intubated for airway protection. * Plan per ICU rounds is to continue patient on IV insulin infusion at the [facility] goal range. Dextrose containing fluids were stopped due to volume overload. PLAN FOR INPATIENT GLYCEMIC CONTROL: * Basal insulin * Lantus 6-7 units SQ Q24H @2000 (7 units if BSG >180mg/dL) * Bolus insulin * NovoLog per scale ACHS or Q6hrs while NPO * Goal Range: Low 150 mg/dL - High 180 mg/dL * Correction Factor: 35 mg/dL/unit * Nutritional / Prandial insulin per carb ratio of 1 unit per -- grams CHO consumed
[2024-03-09] MEDS: LANTUS PER UNIT CHARGE SC SCH (20:28)
[2024-03-10 06:14] LABS: ANTI-Xa, UFH(UnfractionatedHep 0.55 IU/ml (0.3-0.7)
--- NOTE | 2024-03-10 08:42 | Neurology Progress Note ---
Date of Service March 10, 2024 Assessment & Plan (1) Acute metabolic encephalopathy: (2) Non-convulsive status epilepticus: (3) Severe sepsis: (4) Hyperosmolar hyperglycemic state (HHS): (5) Homonymous hemianopsia: Plan Patient presented with severe diabetes with hyperosmolar hyperglycemic state and a severe encephalopathy. She also has sepsis likely originating from E. coli UTI. Patient was having subclinical status epilepticus in the morning of March 06, broken with IV Ativan. EEG March 07, showed a 22-second episode of left-sided potentially epileptogenic activity of a subclinical nature (see report). I suspect that the subclinical seizures 03-06-24 were triggered by the relatively rapid rate of change of lowering her glucose (that is irritable to the brain and can create seizures). The patient has longstanding diabetes and diabetic neuropathy. This will hinder certain lower extremity response testing and reflexes. EEG 03/08 showed no seizure activity and had mild to moderate generalized slowing consistent with her encephalopathy. There was nothing focal. Today the patient is much more awake, conversant, and following commands. Although she does not have any focal findings in her arms she is proximally weak. This could be a critical illness myopathy type of issue. In addition she has decreased vision to confrontation which makes me think she may have bilateral homonymous hemianopsia with loss of peripheral vision and preserved central vision. I did note the MRI from March 06 showed subtle posterior parietal/occipital lesions acutely. Recommendations: 1. Continue levetiracetam 250 mg IV every 6 hours for now. 2. Continue lacosamide 150 mg IV every 12 hours for now. 3. If she continues to have seizure activity I will likely add valproic acid IV and try to taper off levetiracetam. 4. The longer she goes without seizure activity, however, I will likely taper off levetiracetam first and continue with lacosamide. Keep anticonvulsants for now. 5. Repeat MRI of the brain to evaluate for development of parieto-occipital lesions, and compared to the previous study. 6. Speech therapy to do a swallowing test and see if we can advance her to p.o. meds/diet. 7. Increase activity as tolerated and consider physical, occupational, and [facility] therapy consults. Overall, I spent a total of 50 minutes including review of records, review of MRI of the brain, direct evaluation the patient at bedside, report generation, and discussion of the case with the RN at bedside, and Dr. Priest, including differential diagnosis and treatment options. Admission and Anticipated Discharge Date Admission Date: March 05, 2024 Subjective Patient has no complaint of pain or headache. She denies dizziness or lightheadedness. Nursing reports no new issues overnight. The patient has not had any seizures. Blood pressure is 177/81 without pulse in the 70s. Temperature is 36.4. Glucose was 172. Results & Data Vital Signs (Past 12 Hours) Vital Signs Temp Pulse Pulse Resp BP Pulse Ox O2 Del Method 03/10/24 07:16 36.4 C L 71 18 172/81 H 97 Room Air 03/10/24 03:02 36.4 C L 71 18 149/85 H 95 Room Air 03/10/24 02:00 69 171/84 H 95 Room Air 03/09/24 23:43 77 162/85 H 03/09/24 23:39 77 03/09/24 22:26 77 183/99 H 03/09/24 21:30 77 179/98 H 03/09/24 20:43 77 179/90 H 94 Room Air Exam (Neuro) Physical Exam: The patient opens her eyes to voice makes eye contact and can converse. She follows one-step commands very well now although there is some hesitancy with certain tasks. Extraocular eye muscles are intact without nystagmus. Unfortunately, I am concerned she may have decreased peripheral vision bilaterally although the formal visual field testing is difficult with her. Pupils are 3 to 4 mm bilaterally and reactive to light. There is no facial droop and tongue is midline. Neck is supple. Coordination is normal in the arms but she cannot lift her arms up at the shoulders very much. Lifting her leg off the bed is hard bilaterally as well but she does have 4/5 strength diffusely in most major muscle groups with gatekeeper and resistance in the arms and in the legs. She can independently wiggle her fingers and toes. Toes are slightly upgoing with plantar stimulation on the left and neutral on the right. PG Care Time/CCT Total # of Minutes Spent Total Time Spent with Patient: Total time spent is greater than 50% in coordination of care (as documented) at patient's floor/unit and/or counseling patient: Coding Level of Care Code 26254 SUB INP/OBS CARE 3/50MIN Diagnoses Acute metabolic encephalopathy G93.41 Non-convulsive status epilepticus G40.901 Severe sepsis A41.9; R65.20 Hyperosmolar hyperglycemic state (HHS) E11.00 Homonymous hemianopsia H53.469 Time Spent (min) 50
[2024-03-10] MEDS ORDERED: Nursing to Pharmacy Communication SCH (14:45)
--- NOTE | 2024-03-10 16:21 | Hospitalist Progress Note ---
Date of Service March 10, 2024 Assessment & Plan (1) Sepsis: Plan: Septic shock, suspected from UTI: E. coli present on admission, on ceftriaxone ( abtx started on admission 03/05/24) suspect 1 week course Follow up blood and urine cultures extubated 03/08 Consulted Neurology, improving encephalopathy neurology recommending repeat MRI of the brain. At this time continue keppra and continue vimpat, Patient had an EEG which is negative for seizure activity. Eventual discontinuation of Keppra per neurology's recommendations A fib, treated with amiodarone. Hold all anti-hypertensives at this time (2) Type 2 diabetes mellitus with hyperosmolar hyperglycemic state (HHS): Plan: Secondary to stopping diabetes medications HbA1C 9.2 in September 2023 glycemic pharmacy to treat DKA (3) Elevated troponin: Plan: Suspect demand related given etiologies as above New RBBB and TWI on EKG, TTE performed 03/05 showing left ventricular systolic function normal moderate mitral regurgitation right systolic pressure normal (4) ONEIL (acute kidney injury): Plan: Suspected pre-renal resolving Continue Amado catheter IV fluids to keep hydration speech evaluation for escalation of diet (5) Paroxysmal atrial fibrillation: Plan: Patient Avelle paroxysmal atrial fibrillation primordial EL with her sepsis. Is instituted on a heparin drip. Ventricular rate is now controlled patient appears in normal sinus rhythm Acute diastolic heart failure has also resolved likely related from atrial fibrillation Currently not on any rate controlling medications Will consider therapeutic anticoagulation for 1 month. Once taking p.o. may convert to DOAC Plan VTE Prophylaxis -on heparin drip Diet -to be determined consistency by speech Admission and Anticipated Discharge Date Admission Date: March 05, 2024 Subjective Patient is improving was conversant did have the ability to take some water at the bedside without significant coughing Reportedly complained to nephrology regarding some visual loss. Speaking with her family this has been present preceding her illness. Physical Exam Physical Exam: pt appears stable, awake and does speak although not completely oriented only oriented x 2 Difficult ascertain a neurological exam is not completely following Commands reliably cardiac is regular lungs are clear but diminished abd is soft and non tender Results & Data Results & Data Vital Signs (Past 12 Hours) Vital Signs Temp Pulse Pulse Resp BP Pulse Ox O2 Del Method 03/10/24 10:59 97.7 F 72 18 164/76 H 96 Room Air 03/10/24 07:50 Room Air 03/10/24 07:16 97.5 F L 71 18 172/81 H 97 Room Air 03/10/24 06:02 69 Laboratory Results Reviewed [id number] glucose Discussed case with neurology Discussed history of visual loss with family at bedside PG Care Time/CCT Total # of Minutes Spent Total Time Spent with Patient: Total time spent is greater than 50% in coordination of care (as documented) at patient's floor/unit and/or counseling patient: Coding Level of Care Code 42008 SUB INP/OBS CARE 3/50MIN Diagnoses Sepsis A41.9 Type 2 diabetes mellitus with hyperosmolar hyperglycemic state (HHS) E11.00 Elevated troponin R79.89 ONEIL (acute kidney injury) N17.9 Paroxysmal atrial fibrillation I48.0
[2024-03-10] MEDS: INSULIN ASPART PER UNIT CHARGE SC SCH (17:56)
--- NOTE | 2024-03-10 19:28 | Magnetic Resonance Report ---
MR brain wo con CLINICAL HISTORY: homonomous hemiamopsia TECHNIQUE: Multiplanar and multisequence MR images of the brain were obtained without intravenous con trast. Comparison: Comparison is made to MRI brain 03/06/2024 FINDINGS: No abnormal restricted diffusion is identified. Again noted is a tiny focus of restricted diffusion i n the right tessa. Ill-defined restricted diffusion in the bilateral cortices are stable from prior ex am. The ventricular system is normal in appearance. No mass is seen. There is no mass effect or midli ne shift. There is no evidence of acute intraparenchymal hemorrhage. No extra axial fluid collections are seen. The corpus callosum, pituitary gland, and cerebellar tonsils appear grossly unremarkable. Flow voids of the major intracranial arterial vessels are identified. The imaged portions of the para nasal sinuses, mastoid air cells, and orbits are unremarkable. IMPRESSION: 1. Stable tiny focus of restricted diffusion in the right tessa, a tiny infarct cannot be excluded. 2. Redemonstration of minimal cortical restricted diffusion. Anoxic ischemic injury cannot be exclud ed. ACT 112: Negative or not required by law. Electronically signed by: Pacheco Melendrez M.D. 03/10/2024 7:26 PM
[2024-03-11 08:00] LABS: ANTI-Xa, UFH(UnfractionatedHep 0.74 IU/ml (0.3-0.7)
--- NOTE | 2024-03-11 08:44 | Neurology Progress Note ---
Date of Service March 11, 2024 Assessment & Plan (1) Acute metabolic encephalopathy: (2) Non-convulsive status epilepticus: (3) Severe sepsis: (4) Hyperosmolar hyperglycemic state (HHS): (5) Homonymous hemianopsia: Plan Patient presented with severe diabetes with hyperosmolar hyperglycemic state and a severe encephalopathy. She also has sepsis likely originating from E. coli UTI. Patient was having subclinical status epilepticus in the morning of March 06, broken with IV Ativan. EEG March 07, showed a 22-second episode of left-sided potentially epileptogenic activity of a subclinical nature (see report). I suspect that the subclinical seizures 03-06-24 were triggered by the relatively rapid rate of change of lowering her glucose (that is irritable to the brain and can create seizures). The patient has longstanding diabetes and diabetic neuropathy. This will hinder certain lower extremity response testing and reflexes. EEG 03/08 showed no seizure activity and had mild to moderate generalized slowing consistent with her encephalopathy. There was nothing focal. She has had no seizures since March 07. Today the patient is awake, conversant, and following commands. Although she does not have any focal findings in her arms she is proximally weak. This could be a mild critical illness myopathy. In addition, when I tested her March 10, she had decreased lateral vision to confrontation bilaterally, which makes me think she may have bilateral homonymous hemianopsia, with loss of peripheral vision and preserved central vision. I did note the MRI from March 06 showed subtle posterior parietal/occipital lesions acutely. However, the MRI from today did not show any obvious parieto-occipital abnormalities or stroke. There was a very small right pontine lesion but this would not affect her vision in this way. Recommendations: 1. Decrease levetiracetam 250 mg IV to every 12 hours, alternating with the lacosamide. 2. Continue lacosamide 150 mg IV every 12 hours for now. 3. If she continues to have seizure activity I will likely add valproic acid IV and try to taper off levetiracetam. 4. Increase activity and diet as able 5.. Speech and occupational therapy consults Overall, I spent a total of 50 minutes including review of records, review of MR I of the brain, direct evaluation the patient at bedside, report generation, and discussion of the case with the RN at bedside, Dr. Christine, radiology, and Dr. Priest, including differential diagnosis and treatment options. Admission and Anticipated Discharge Date Admission Date: March 05, 2024 Subjective Patient has no complaint of pain or headache. Nursing reports that the patient was confused earlier this morning and was not following commands. There is no history of any seizure activity or other events overnight. Blood pressure is 184/96 and she is afebrile. Glucose was 230 this morning Patient had an MRI of the brain without contrast. There is a tiny right pontine subacute stroke, but I did not appreciate any parieto-occipital abnormalities, such as were possibly present on the initial MRI of March 06. I discussed the MRI with Dr. Christine, radiology and reviewed the films of both MRIs. Results & Data Vital Signs (Past 12 Hours) Vital Signs Temp Pulse Pulse Resp BP Pulse Ox O2 Del Method 03/11/24 08:01 Room Air 03/11/24 08:00 73 03/11/24 07:32 36.5 C 73 18 184/96 H 94 Room Air 03/11/24 03:00 Room Air 03/11/24 03:00 36.6 C 69 16 174/89 H 95 Room Air 03/11/24 00:00 73 03/10/24 23:07 37.0 C 72 18 151/81 H 95 Room Air 03/10/24 21:03 Room Air Exam (Neuro) Physical Exam: Patient is easily aroused with voice, makes eye contact, and smiles. She has no aphasia or dysarthria. She follows one-step commands very well and has no asymmetry of the limbs with movement. Extraocular eye muscles are intact without nystagmus and she has no facial droop. Tongue is midline. There are no abnormal involuntary movements. Strength seems symmetrical and 4/5 diffusely in all major muscle groups in the arms and legs. PG Care Time/CCT Total # of Minutes Spent Total Time Spent with Patient: Total time spent is greater than 50% in coordination of care (as documented) at patient's floor/unit and/or counseling patient: Coding Level of Care Code 58203 SUB INP/OBS CARE 3/50MIN Diagnoses Acute metabolic encephalopathy G93.41 Non-convulsive status epilepticus G40.901 Severe sepsis A41.9; R65.20 Hyperosmolar hyperglycemic state (HHS) E11.00 Homonymous hemianopsia H53.469 Time Spent (min) 50
[2024-03-11 08:52] LABS: ANTI-Xa, UFH(UnfractionatedHep 0.65 IU/ml (0.3-0.7)
[2024-03-11 09:31] LABS: BUN Creatinine Ratio 12.4 (10-20); Creatinine Clr Calc Pharmacy 45.8 ml/min; Est GFR (African American) 58.7 ml/min; Est GFR (Non-African American) 50.6 ml/min; Potassium 3.2 mmol/L (3.5-5.1)
[2024-03-11 09:38] LABS: Hematocrit (blood only) 28.3 % (37.0-47.0); Hemoglobin 9.7 g/dl (12.0-16.0); Mean Corpuscular Hemoglobin 29.4 pg (25.0-34.0); Mean Corpuscular Hgb Conc 34.3 g/dL (32.0-36.0); Mean Corpuscular Volume 85.8 fL (80.0-100.0); Platelet Count 276 K/uL (130-400); RDW Coefficient of Variation 12.8 % (11.5-14.5); RDW Standard Deviation 39.4 fL (36.4-46.3); White Blood Count 8.02 K/ul (4.8-10.8)
[2024-03-11] MEDS: LOSARTAN POTASSIUM 50 MG TAB PO SCH (11:38)
[2024-03-11] MEDS: APIXABAN 5 MG TABLET PO SCH (11:38)
--- NOTE | 2024-03-11 15:39 | Hospitalist Progress Note ---
Date of Service March 11, 2024 Assessment & Plan (1) Sepsis: Plan: Septic shock, suspected from UTI: E. coli present on admission, on ceftriaxone ( abtx started on admission 03/05/24) suspect 1 week course Follow up blood and urine cultures extubated 03/08 Consulted Neurology, improving encephalopathy neurology recommending repeat MRI of the brain 03/10 shows tiny right tessa infarct, anoxic ishemic injury also .start aspirin and statin, control risk factors At this time continue keppra and continue vimpat, Patient had an EEG which is negative for seizure activity. Eventual discontinuation of Keppra per neurology's recommendations A fib, treated with amiodarone. blood pressure has improved will restart some losartan speech did see and clear for po intake (2) Type 2 diabetes mellitus with hyperosmolar hyperglycemic state (HHS): Plan: Secondary to stopping diabetes medications HbA1C 9.2 in September 2023 glycemic pharmacy treated DKA transitioned to basal bolus (3) Elevated troponin: Plan: Suspect demand related given etiologies as above New RBBB and TWI on EKG, TTE performed 03/05 showing left ventricular systolic function normal moderate mitral regurgitation right systolic pressure normal (4) ONEIL (acute kidney injury): Plan: Suspected pre-renal resolved to CKD 3 remove epperson when able (5) Paroxysmal atrial fibrillation: Plan: Patient Avelle paroxysmal atrial fibrillation primordial EL with her sepsis. Is instituted on a heparin drip. Ventricular rate is now controlled patient appears in normal sinus rhythm Acute diastolic heart failure has also resolved likely related from atrial fibrillation Currently not on any rate controlling medications Will consider therapeutic anticoagulation for 1 month. start apixiban 03/11/24 Plan VTE Prophylaxis -apixiban Admission and Anticipated Discharge Date Admission Date: March 05, 2024 Physical Exam Physical Exam: pt is more awake, family at bedside raspy voice, more upper airway issues that sounds like rhonchi or rales cardiac is regular lungs are clear but there is upper airway sounds, maybe laryngeal edema from intubation Results & Data Results & Data Vital Signs (Past 12 Hours) Vital Signs Temp Pulse Pulse Resp BP Pulse Ox O2 Del Method 03/11/24 15:03 97.9 F 75 18 176/91 H 96 Room Air 03/11/24 11:49 97.5 F L 71 18 162/84 H 94 Room Air 03/11/24 08:01 Room Air 03/11/24 08:00 73 03/11/24 07:32 97.7 F 73 18 184/96 H 94 Room Air Laboratory Results review cbc review chemistry PG Care Time/CCT Total # of Minutes Spent Total Time Spent with Patient: Total time spent is greater than 50% in coordination of care (as documented) at patient's floor/unit and/or counseling patient: Coding Level of Care Code 63713 SUB INP/OBS CARE 2/35MIN Diagnoses Sepsis A41.9 Type 2 diabetes mellitus with hyperosmolar hyperglycemic state (HHS) E11.00 Elevated troponin R79.89 ONEIL (acute kidney injury) N17.9 Paroxysmal atrial fibrillation I48.0
[2024-03-11] MEDS ORDERED: hydrALAZINE HCL 20 MG/ML VIAL IV PRN (15:48)
[2024-03-11] MEDS: ONDANSETRON INJ 2 MG/ML 2 ML VIAL IV PRN (16:41)
[2024-03-11] MEDS: LOSARTAN POTASSIUM 25 MG TAB PO ONE (17:22)
[2024-03-11] MEDS: SODIUM CHLORIDE 0.9% IV SCH (23:05)
[2024-03-11] MEDS: LEVETIRACETAM IV SCH (23:05)
[2024-03-12 07:23] LABS: Hematocrit (blood only) 26.1 % (37.0-47.0); Hemoglobin 8.9 g/dl (12.0-16.0); Mean Corpuscular Hemoglobin 29.3 pg (25.0-34.0); Mean Corpuscular Hgb Conc 34.1 g/dL (32.0-36.0); Mean Corpuscular Volume 85.9 fL (80.0-100.0); Mean Platelet Volume 9.5 fL (9.4-12.4); Platelet Count 268 K/uL (130-400); RDW Coefficient of Variation 13.1 % (11.5-14.5); RDW Standard Deviation 39.1 fL (36.4-46.3); Red Blood Count 3.04 M/uL (4.20-5.40); White Blood Count 6.81 K/ul (4.8-10.8)
[2024-03-12 07:36] LABS: BUN Creatinine Ratio 9.3 (10-20); Chol HDL Ratio 2.8 (0-5); Creatinine Clr Calc Pharmacy 48.4 ml/min; Est GFR (African American) 62.7 ml/min; Est GFR (Non-African American) 54.1 ml/min; Potassium 3.4 mmol/L (3.5-5.1)
[2024-03-12] MEDS ORDERED: LOSARTAN POTASSIUM 25 MG TAB PO SCH (09:00)
[2024-03-12] MEDS: amLODIPine BESYLATE 5 MG TAB PO ONE (10:16)
[2024-03-12] MEDS: ASPIRIN 81 MG ECTAB PO SCH (10:18)
[2024-03-12] MEDS: ATORVASTATIN 40 MG TAB PO SCH (10:19)
--- NOTE | 2024-03-12 16:02 | Hospitalist Progress Note ---
Date of Service March 12, 2024 Assessment & Plan (1) Sepsis: Plan: Septic shock, suspected from UTI: E. coli present on admission, on ceftriaxone ( abtx started on admission 03/05/24) suspect 1 week course Follow up blood and urine cultures extubated 03/08 Consulted Neurology, improving encephalopathy neurology recommending repeat MRI of the brain 03/10 shows tiny right tessa infarct, anoxic ishemic injury also .start aspirin and statin, control risk factors At this time continue keppra and continue vimpat, Patient had an EEG which is negative for seizure activity. Eventual discontinuation of Keppra per neurology's recommendations A fib, treated with amiodarone. blood pressure has improved restarted losartan, still uncontrolled adding amlodipine Imaging suggests small tessa stroke and possible anoxic brain injury, will have on guideline stoke treatment with aspirin and statin, control secondary risk factors speech did see and clear for po intake (2) Type 2 diabetes mellitus with hyperosmolar hyperglycemic state (HHS): Plan: Secondary to stopping diabetes medications HbA1C 9.2 in September 2023 glycemic pharmacy treated DKA transitioned to basal bolus (3) Elevated troponin: Plan: Suspect demand related given etiologies as above New RBBB and TWI on EKG, TTE performed 03/05 showing left ventricular systolic function normal moderate mitral regurgitation right systolic pressure normal (4) ONEIL (acute kidney injury): Plan: Suspected pre-renal resolved to CKD 3 remove epperson when able (5) Paroxysmal atrial fibrillation: Plan: Patient Avelle paroxysmal atrial fibrillation primordial EL with her sepsis. Is instituted on a heparin drip. Ventricular rate is now controlled patient appears in normal sinus rhythm Acute diastolic heart failure has also resolved likely related from atrial fibrillation Currently not on any rate controlling medications Will consider therapeutic anticoagulation for 1 month. start apixiban 03/11/24 Plan VTE Prophylaxis -apixiban Admission and Anticipated Discharge Date Admission Date: March 05, 2024 Subjective pt is more awake and alert, moving slowly, concern if some issues are from what is described on mri of some anoxic brain injury seen. certainly is a candidate for rehab of some kind no focal complaints starting to take po more reliably Physical Exam Physical Exam: slow moving but more alert cardiac is regular lungs are clear but decreased at the bases Results & Data Results & Data Vital Signs (Past 12 Hours) Vital Signs Temp Pulse Pulse Resp BP Pulse Ox O2 Del Method 03/12/24 15:18 97.7 F 67 16 175/81 H 96 Room Air 03/12/24 11:23 97.5 F L 68 18 173/88 H 96 Room Air 03/12/24 08:00 69 03/12/24 07:42 97.5 F L 66 18 182/91 H 94 Room Air 03/12/24 07:23 Room Air Laboratory Results review cbc review chemistry, augment hypokalemia PG Care Time/CCT Total # of Minutes Spent Total Time Spent with Patient: Total time spent is greater than 50% in coordination of care (as documented) at patient's floor/unit and/or counseling patient: Coding Level of Care Code 00054 SUB INP/OBS CARE 3/50MIN Diagnoses Sepsis A41.9 Type 2 diabetes mellitus with hyperosmolar hyperglycemic state (HHS) E11.00 Elevated troponin R79.89 ONEIL (acute kidney injury) N17.9 Paroxysmal atrial fibrillation I48.0
[2024-03-13] MEDS: amLODIPine BESYLATE 5 MG TAB PO SCH (07:39)
--- NOTE | 2024-03-13 12:36 | Hospitalist Progress Note ---
Date of Service March 13, 2024 Assessment & Plan (1) Sepsis: Plan: Septic shock, suspected from UTI: E. coli present on admission, on ceftriaxone ( abtx started on admission 03/05/24) suspect 1 week course Follow up blood and urine cultures extubated 03/08 Consulted Neurology, improving encephalopathy neurology recommending repeat MRI of the brain 03/10 shows tiny right tessa infarct, anoxic ishemic injury also concern if ischemic injury from prolongued seizure as cannot tell me how long she was seizing prior to ems arriving .start aspirin and statin, control risk factors At this time continue keppra and continue vimpat, Patient had an EEG which is negative for seizure activity. Eventual discontinuation of Keppra per neurology's recommendations A fib, treated with amiodarone. blood pressure has improved restarted losartan, bp improved after adding amlodipine Imaging suggests small tessa stroke and possible anoxic brain injury, will have on guideline stoke treatment with aspirin and statin, control secondary risk factors speech did see and cleared for po intake (2) Type 2 diabetes mellitus with hyperosmolar hyperglycemic state (HHS): Plan: Secondary to stopping diabetes medications HbA1C 9.2 in September 2023 glycemic pharmacy treated DKA transitioned to basal bolus (3) Elevated troponin: Plan: Suspect demand related given etiologies as above New RBBB and TWI on EKG, TTE performed 03/05 showing left ventricular systolic function normal moderate mitral regurgitation right systolic pressure normal (4) ONEIL (acute kidney injury): Plan: Suspected pre-renal resolved to CKD 3 remove epperson when able (5) Paroxysmal atrial fibrillation: Plan: Patient Avelle paroxysmal atrial fibrillation primordial EL with her sepsis. Is instituted on a heparin drip. Ventricular rate is now controlled patient appears in normal sinus rhythm Acute diastolic heart failure has also resolved likely related from atrial fibrillation Currently not on any rate controlling medications Will consider therapeutic anticoagulation for 1 month. start apixiban 03/11/24 Plan VTE Prophylaxis -apixiban Admission and Anticipated Discharge Date Admission Date: March 05, 2024 Subjective pt is more awake and alert, moving slowly, concern if some issues are from what is described on mri of some anoxic brain injury seen. certainly is a candidate for rehab of some kind no focal complaints starting to take po more reliably family is at the bedside and is updated Physical Exam Physical Exam: slow moving but more alert cardiac is regular lungs are clear but decreased at the bases no focal complaints Results & Data Results & Data Vital Signs (Past 12 Hours) Vital Signs Temp Pulse Pulse Resp BP Pulse Ox O2 Del Method 03/13/24 11:20 97.3 F L 73 16 173/77 H 95 Room Air 03/13/24 08:00 63 03/13/24 07:54 98.2 F 104 H 18 161/75 H 90 Nasal Cannula 03/13/24 07:03 98.1 F 66 19 185/94 H 95 Room Air 03/13/24 02:56 97.5 F L 68 18 148/79 H 97 Room Air O2 Flow Rate 03/13/24 11:20 03/13/24 08:00 03/13/24 07:54 2 03/13/24 07:03 03/13/24 02:56 PG Care Time/CCT Total # of Minutes Spent Total Time Spent with Patient: Total time spent is greater than 50% in coordination of care (as documented) at patient's floor/unit and/or counseling patient: Coding Level of Care Code 83314 SUB INP/OBS CARE 2/35MIN Diagnoses Sepsis A41.9 Type 2 diabetes mellitus with hyperosmolar hyperglycemic state (HHS) E11.00 Elevated troponin R79.89 ONEIL (acute kidney injury) N17.9 Paroxysmal atrial fibrillation I48.0
--- NOTE | 2024-03-13 14:19 | Pharmacy Report ---
Pharmacy Glycemic Short Note 2 - Date of Service March 13, 2024 - Glycemic Short BSG Results (Last 24 hours): 03/12/24 03/12/24 03/13/24 16:16 20:21 07:13 POC Glucose 197 H 191 H 113 H 03/13/24 11:23 POC Glucose 202 H OUTPATIENT ANTIDIABETIC REGIMEN: * Patient discontinued anti-DM meds * A1c = 15.9% (03/05/24) ASSESSMENT: 03/13: * Patient received 6 units of basal and 2 units of bolus insulin yesterday. * BSGs yesterday were [phone] mg/dl. Fasting BSG today was 113 mg/dl. Pre-lunch BSG trended up to 202 mg/dl. * Given goal range of 150-180 mg/dl per provider, BSGs are pretty well contro lled on current regimen. * Will continue with basal insulin on scale and Novolog with correction factor only and no carb coverage. 03/09: * Carol received 9 units of insulin yesterday (6 were basal) * Fasting BSG within goal range (200-250mg/dL), discussed goal range with Dr. Priest, ok to decrease to 150-180mg/dL today, will allow for extra basal insulin (increase ~15%) if BSGs above new goal range * She is still NPO, continue current correction factor, if diet is ordered will likely need carbohydrate coverage * She continues on the heparin drip and IV ceftriaxone 03/07 * BSG goal range of 250-350mg/dL to continue for the next 24 hrs per Hospitalist Physician * Calculated effective serum osmo 287 this AM * BSGs running in the 220s with insulin drip infusing at 0.6unit/hr this AM, now titrated down to 0.4units/hr. * Phenylephrine weaned off. Propofol remains off. Patient remains intubated. Heparin drip (in D5W) continues to infuse. Amiodarone gtt off. * Continue low dose insulin drip for now as this offers more precision in maintaining BSGs in current range - could consider transition to SQ Novolog Q 4 hr regimen in the near future 03/06 * Carol is a 68 yo T2DM admitted with [facility]. BSG 1069 on arrival to the ED. She was started on IV insulin infusion per DKA/HHS protocol. * Patient is prescribed basal insulin and metformin but stopped these medications about 2 months ago due to side effects. * Electrolyte abnormalities improved on 5/5 am, however worsening mental status. Calculated serum osmolality = 299. * Neurology consulted due to concerns of seizure activity. New onset A. fib, phenylephrine drip started for hypotension and patient intubated for airway protection. * Plan per ICU rounds is to continue patient on IV insulin infusion at the HHS goal range. Dextrose containing fluids were stopped due to volume overload. PLAN FOR INPATIENT GLYCEMIC CONTROL: * Basal insulin * Lantus 0-6-7 units SQ Q24H @2000 (0 units for BSG less than 170, 6 units for 170-200, 7 units if BSG >200 mg/dL) * Bolus insulin * NovoLog per scale ACHS or Q6hrs while NPO * Goal Range: Low 150 mg/dL - High 180 mg/dL * Correction Factor: 35 mg/dL/unit * Nutritional / Prandial insulin per carb ratio of 1 unit per -- grams CHO consumed
[2024-03-14 07:51] LABS: Est GFR (African American) 57.4 ml/min; Est GFR (Non-African American) 49.5 ml/min
--- NOTE | 2024-03-14 09:48 | Pharmacy Report ---
Pharmacy Glycemic Short Note 2 - Date of Service March 14, 2024 - Glycemic Short BSG Results (Last 24 hours): 03/13/24 03/13/24 03/13/24 11:23 16:31 21:09 POC Glucose 202 H 173 H 192 H 03/14/24 07:45 POC Glucose 179 H OUTPATIENT ANTIDIABETIC REGIMEN: * Patient discontinued anti-DM meds * A1c = 15.9% (03/05/24) ASSESSMENT: 03/14: * Stressors stable * AM fasting below pre-specified goal range (that was discussed w the provider on 03/09) on two of the last three mornings. Will hold Lantus today then resume at lower dose based on BSG on 03/15 AM * Many of the post-prandial BSG's are above goal range over the last two days. Reduction in Lantus (above) may further increase. Patient consuming some CHO with meals. Will add in very loose CHO ratio, starting tomorrow (since Lantus admin last night may provide some prandial coverage today) 03/13: * Patient received 6 units of basal and 2 units of bolus insulin yesterday. * BSGs yesterday were [phone] mg/dl. Fasting BSG today was 113 mg/dl. Pre-lunch BSG trended up to 202 mg/dl. * Given goal range of 150-180 mg/dl per provider, BSGs are pretty well controlled on current regimen. * Will continue with basal insulin on scale and Novolog with correction factor only and no carb coverage. 03/09: * Carol received 9 units of insulin yesterday (6 were basal) * Fasting BSG within goal range (200-250mg/dL), discussed goal range with shade Jeffers to decrease to 150-180mg/dL today, will allow for extra basal insulin (increase ~15%) if BSGs above new goal range * She is still NPO, continue current correction factor, if diet is ordered will likely need carbohydrate coverage * She continues on the heparin drip and IV ceftriaxone 03/07 * BSG goal range of 250-350mg/dL to continue for the next 24 hrs per Doctor Of Naprapathy * Calculated effective serum osmo 287 this AM * BSGs running in the 220s with insulin drip infusing at 0.6unit/hr this AM, now titrated down to 0.4units/hr. * Phenylephrine weaned off. Propofol remains off. Patient remains intubated. Heparin drip (in D5W) continues to infuse. Amiodarone gtt off. * Continue low dose insulin drip for now as this offers more precision in maintaining BSGs in current range - could consider transition to SQ Novolog Q 4 hr regimen in the near future 03/06 * Carol is a 68 yo T2DM admitted with [facility]. BSG 1069 on arrival to the ED. She was started on IV insulin infusion per DKA/HHS protocol. * Patient is prescribed basal insulin and metformin but stopped these medications about 2 months ago due to side effects. * Electrolyte abnormalities improved on 03/06 am, however worsening mental status. Calculated serum osmolality = 299. * Neurology consulted due to concerns of seizure activity. New onset A. fib, phenylephrine drip started for hypotension and patient intubated for airway protection. * Plan per ICU rounds is to continue patient on IV insulin infusion at the [facility] goal range. Dextrose containing fluids were stopped due to volume overload. PLAN FOR INPATIENT GLYCEMIC CONTROL: * Basal insulin * Lantus 4 units SC qAM (hold for BSG less than 180 mg/dL) * Bolus insulin * NovoLog per scale ACHS or Q6hrs while NPO * Goal Range: Low 150 mg/dL - High 180 mg/dL * Correction Factor: 40 mg/dL/unit * Nutritional / Prandial insulin per carb ratio of 1 unit per 22 grams CHO consumed
--- NOTE | 2024-03-14 12:13 | Neurology Progress Note ---
Date of Service March 14, 2024 Assessment & Plan (1) Hyperosmolar hyperglycemic state (HHS): Admission and Anticipated Discharge Date Admission Date: March 05, 2024 Subjective pt this morning alert and talking and looks very well. able to have good conversation. Results & Data Vital Signs (Past 12 Hours) Vital Signs Temp Pulse Resp BP Pulse Ox O2 Del Method 03/14/24 07:44 36.6 C 67 18 190/85 H 96 Room Air Exam (Neuro) Physical Exam: Neuro: Mental: AOx4, fluent speech, normal comprehension, no apraxia, no L/R confusion, no neglect. CN: PERRL, Full EOM, symmetric face, Motor: No abnormal movements, Coord: intact upper limbs. Impression: 68 yo female with hx of sepsis and s/p nonconvulsive status in setting of severe hyperglycemic hyerosmolar syndrome. pt doing remarkably well given her recent medical problems. pt now alert and communicating well and not encephalopathic at all. no seizures. Recommendations: continue keppra 250mg po bid (can change to po from IV), continue for 2 weeks and wean off (250mg po daily for a week and stop). wean off vimpat, cut back to 100mg po bid for a week, 100mg po daily for a week and stop. pt can have routine outpt f/u with neurology once discharged from the hospital. routine stroke risk modifications with LDL goal less than 70, SBP less than 140. strict DM control. call again if new question. will sign off. Chart reviewed I have spent more than 50% educating patient about potential diagnosis and neurological evaluation and coordinating care with patient's treatment team. Total time spent (including chart review and coordination of care): 35 min (this includes chart review). PG Care Time/CCT Total # of Minutes Spent Total Time Spent with Patient: Total time spent is greater than 50% in coordination of care (as documented) at patient's floor/unit and/or counseling patient: Coding Level of Care Code 24225 SUB INP/OBS CARE 2/35MIN Diagnoses Hyperosmolar hyperglycemic state (HHS) E11.00
--- NOTE | 2024-03-14 14:57 | Fluoroscopy Report ---
VIDEO SWALLOW STUDY CLINICAL HISTORY: Aspiration. COMPARISON STUDY: No priors. FLUOROSCOPY TIME: 1.22 minutes. Ka,r: 6.29 mGy. FINDINGS: Fluoroscopic guidance was provided to the department of speech pathology in performing a vi kb swallow study. The patient consumed barium impregnated nectar thick liquids, pudding, cracker wit h paste, as well as thin barium while the swallowing mechanism was observed in real-time. There is ph aryngeal penetration and silent aspiration seen with the thin liquids. Pharyngeal penetration is seen with nectar thick liquids with no aspiration identified. No aspiration was seen with the pudding or cracker with paste textures. IMPRESSION: 1. Silent aspiration was seen with thin barium. 2. There is pharyngeal penetration noted with nectar thick liquids. 3. See dictated speech pathology report for detailed findings and recommendations. Dictated: 03/14/2024 12:17 PM Transcribed: 03/14/2024 12:24 PM Mica [id number] [email or web address] [id number] Electronically signed by: Pola Ayala M.D. 03/14/2024 2:55 PM
--- NOTE | 2024-03-14 17:43 | Hospitalist Progress Note ---
Date of Service March 14, 2024 Assessment & Plan (1) Sepsis: Plan: Septic shock, suspected from UTI: E. coli present on admission, on ceftriaxone ( abtx started on admission 03/05/24) suspect 1 week course Follow up blood and urine cultures extubated 03/08 Consulted Neurology, improving encephalopathy neurology recommending repeat MRI of the brain 03/10 shows tiny right tessa infarct, anoxic ishemic injury also concern if ischemic injury from prolongued seizure as cannot tell me how long she was seizing prior to ems arriving .start aspirin and statin, control risk factors At this time continue keppra and continue vimpat, neurology recommends decreased dosing nand stop after one week A fib, treated with amiodarone. blood pressure has improved restarted losartan, bp improved after adding amlodipine Imaging suggests small tessa stroke and possible anoxic brain injury, will have on guideline stoke treatment with aspirin and statin, control secondary risk factors speech did see and cleared for po intake, does aspirate on thin liquids, asp iration precautions no straws (2) Type 2 diabetes mellitus with hyperosmolar hyperglycemic state (HHS): Plan: Secondary to stopping diabetes medications HbA1C 9.2 in September 2023 glycemic pharmacy treated DKA transitioned to basal bolus (3) Elevated troponin: Plan: Suspect demand related given etiologies as above New RBBB and TWI on EKG, TTE performed 03/05 showing left ventricular systolic function normal moderate mitral regurgitation right systolic pressure normal (4) ONEIL (acute kidney injury): Plan: Suspected pre-renal resolved to CKD 3 remove epperson when able (5) Paroxysmal atrial fibrillation: Plan: Patient Avelle paroxysmal atrial fibrillation primordial EL with her sepsis. Is instituted on a heparin drip. Ventricular rate is now controlled patient appears in normal sinus rhythm Acute diastolic heart failure has also resolved likely related from atrial fibrillation Currently not on any rate controlling medications Will consider therapeutic anticoagulation for 1 month. start apixiban 03/11/24 Plan VTE Prophylaxis -apixiban rehab evaluation Admission and Anticipated Discharge Date Admission Date: March 05, 2024 Subjective pt this morning alert and talking and looks better more alert, family at bedside and updated Physical Exam Physical Exam: more alert cardiac is regular lungs are clear but decreased at the bases no focal complaints Results & Data Results & Data Vital Signs (Past 12 Hours) Vital Signs Temp Pulse Pulse Resp BP Pulse Ox O2 Del Method 03/14/24 14:28 98.1 F 74 16 166/74 H 98 Room Air 03/14/24 13:05 97.5 F L 76 181/83 H 97 Room Air 03/14/24 08:00 Room Air 03/14/24 07:44 97.9 F 67 18 190/85 H 96 Room Air PG Care Time/CCT Total # of Minutes Spent Total Time Spent with Patient: Total time spent is greater than 50% in coordination of care (as documented) at patient's floor/unit and/or counseling patient: Coding Level of Care Code 65042 SUB INP/OBS CARE 2/35MIN Diagnoses Sepsis A41.9 Type 2 diabetes mellitus with hyperosmolar hyperglycemic state (HHS) E11.00 Elevated troponin R79.89 ONEIL (acute kidney injury) N17.9 Paroxysmal atrial fibrillation I48.0
[2024-03-14] MEDS: LACOSAMIDE 50 MG TABLET PO SCH (20:13)
[2024-03-14] MEDS: levETIRAcetam 250 MG TAB PO SCH (20:13)
[2024-03-15] MEDS ORDERED: LANTUS PER UNIT CHARGE SC SCH (09:00)
[2024-03-15] MEDS: LOSARTAN POTASSIUM 50 MG TAB PO SCH (09:17)
[2024-03-15] MEDS: INSULIN ASPART PER UNIT CHARGE SC SCH (09:17)
[2024-03-15] MEDS: LANTUS PER UNIT CHARGE SC SCH (09:17)
--- NOTE | 2024-03-15 14:30 | Pharmacy Report ---
Pharmacy Glycemic Short Note 2 - Date of Service March 15, 2024 - Glycemic Short BSG Results (Last 24 hours): 03/14/24 03/14/24 03/15/24 16:57 20:10 07:32 POC Glucose 204 H 244 H 236 H 03/15/24 11:33 POC Glucose 278 H OUTPATIENT ANTIDIABETIC REGIMEN: * ASSESSMENT: 03/15: * BSGs above goal thus far today - this is not surprising given basal insulin was held last evening. Lantus resumed this morning. * Patient consuming a considerable amount of carbs with meals today (59 grams with breakfast, 49 grams with lunch). Will slightly tighten correction factor and carb coverage. 03/14: * Stressors stable * AM fasting below pre-specified goal range (that was discussed w the provider on 03/09) on two of the last three mornings. Will hold Lantus today then resume at lower dose based on BSG on 03/15 AM * Many of the post-prandial BSG's are above goal range over the last two days. Reduction in Lantus (above) may further increase. Patient consuming some CHO with meals. Will add in very loose CHO ratio, starting tomorrow (since Lantus admin last night may provide some prandial coverage today) 03/13: * Patient received 6 units of basal and 2 units of bolus insulin yesterday. * BSGs yesterday were [phone] mg/dl. Fasting BSG today was 113 mg/dl. Pre-lunch BSG trended up to 202 mg/dl. * Given goal range of 150-180 mg/dl per provider, BSGs are pretty well controlled on current regimen. * Will continue with basal insulin on scale and Novolog with correction factor only and no carb coverage. 03/09: * Carol received 9 units of insulin yesterday (6 were basal) * Fasting BSG within goal range (200-250mg/dL), discussed goal range with shade Jeffers to decrease to 150-180mg/dL today, will allow for extra basal insulin (increase ~15%) if BSGs above new goal range * She is still NPO, continue current correction factor, if diet is ordered will likely need carbohydrate coverage * She continues on the heparin drip and IV ceftriaxone 03/07 * BSG goal range of 250-350mg/dL to continue for the next 24 hrs per Thread Singer * Calculated effective serum osmo 287 this AM * BSGs running in the 220s with insulin drip infusing at 0.6unit/hr this AM, now titrated down to 0.4units/hr. * Phenylephrine weaned off. Propofol remains off. Patient remains intubated. Heparin drip (in D5W) continues to infuse. Amiodarone gtt off. * Continue low dose insulin drip for now as this offers more precision in maintaining BSGs in current range - could consider transition to SQ Novolog Q 4 hr regimen in the near future 03/06 * Carol is a 68 yo T2DM admitted with [facility]. BSG 1069 on arrival to the ED. She was started on IV insulin infusion per DKA/HHS protocol. * Patient is prescribed basal insulin and metformin but stopped these medications about 2 months ago due to side effects. * Electrolyte abnormalities improved on 03/06 am, however worsening mental status. Calculated serum osmolality = 299. * Neurology consulted due to concerns of seizure activity. New onset A. fib, phenylephrine drip started for hypotension and patient intubated for airway protection. * Plan per ICU rounds is to continue patient on IV insulin infusion at the [facility] goal range. Dextrose containing fluids were stopped due to volume overload. PLAN FOR INPATIENT GLYCEMIC CONTROL: * Hold outpatient oral diabetes medications * Basal insulin * Lantus 0-4 units SQ qAM (4 units for BSG > 150 mg/dL) * Bolus insulin * NovoLog per scale ACHS or Q6hrs while NPO * Goal Range: Low 150 mg/dL - High 180 mg/dL * Correction Factor: 35 mg/dL/unit * Nutritional / Prandial insulin per carb ratio of 18 unit per grams CHO consumed
--- NOTE | 2024-03-15 20:13 | Hospitalist Progress Note ---
Date of Service March 15, 2024 Assessment & Plan (1) Sepsis: Plan: Septic shock, suspected from UTI: E. coli present on admission, on ceftriaxone ( abtx started on admission 03/05/24) suspect 1 week course Urine culture did show E. coli pansensitive last dose ceftriaxone 03/15/2024 extubated 03/08 Consulted Neurology, improving encephalopathy neurology recommending repeat MRI of the brain 03/10 shows tiny right tessa infarct, anoxic ishemic injury also concern if ischemic injury from prolonged seizure as cannot tell me how long she was seizing prior to ems arriving .start aspirin and statin, control risk factors At this time continue keppra and continue vimpat, neurology recommends decreased dosing and stop after one week A fib, treated with amiodarone. blood pressure has improved restarted losartan, bp improved after adding amlodipine Imaging suggests small tessa stroke and possible anoxic brain injury, will have on guideline stoke treatment with aspirin and statin, control secondary risk factors speech did see and cleared for po intake, does aspirate on thin liquids, aspiration precautions no straws (2) Type 2 diabetes mellitus with hyperosmolar hyperglycemic state (HHS): Plan: Secondary to stopping diabetes medications HbA1C 9.2 in September 2023 glycemic pharmacy treated DKA transitioned to basal bolus (3) Elevated troponin: Plan: Suspect demand related given etiologies as above New RBBB and TWI on EKG, TTE performed 03/05 showing left ventricular systolic function normal moderate mitral regurgitation right systolic pressure normal (4) ONEIL (acute kidney injury): Plan: Suspected pre-renal resolved to CKD 3 remove epperson when able (5) Paroxysmal atrial fibrillation: Plan: Patient Avelle paroxysmal atrial fibrillation primordial EL with her sepsis. Is instituted on a heparin drip. Ventricular rate is now controlled patient appears in normal sinus rhythm Acute diastolic heart failure has also resolved likely related from atrial fib rillation Currently not on any rate controlling medications Will consider therapeutic anticoagulation for 1 month. start apixiban 03/11/24 Plan VTE Prophylaxis -apixiban rehab evaluation Admission and Anticipated Discharge Date Admission Date: March 05, 2024 Subjective Patient still continues to improve day by day was ambulating with physical therapy and I saw her today. She is upright more active and alert Physical Exam Physical Exam: more alert able to talk and converse cardiac is regular lungs are clear but decreased at the bases Able to walk with a walker with help of PT. Results & Data Results & Data Vital Signs (Past 12 Hours) Vital Signs Temp Pulse Resp BP Pulse Ox O2 Del Method 03/15/24 14:59 98.2 F 77 16 148/73 H 95 Room Air Laboratory Results Reviewed [id number] glucose PG Care Time/CCT Total # of Minutes Spent Total Time Spent with Patient: Total time spent is greater than 50% in coordination of care (as documented) at patient's floor/unit and/or counseling patient: Coding Level of Care Code 64537 SUB INP/OBS CARE 2/35MIN Diagnoses Sepsis A41.9 Type 2 diabetes mellitus with hyperosmolar hyperglycemic state (HHS) E11.00 Elevated troponin R79.89 ONEIL (acute kidney injury) N17.9 Paroxysmal atrial fibrillation I48.0
--- NOTE | 2024-03-16 10:02 | Pharmacy Report ---
Pharmacy Glycemic Short Note 2 - Date of Service March 16, 2024 - Glycemic Short BSG Results (Last 24 hours): 03/15/24 03/15/24 03/15/24 11:33 16:33 20:24 POC Glucose 278 H 187 H 200 H 03/16/24 07:46 POC Glucose 217 H OUTPATIENT ANTIDIABETIC REGIMEN: * ASSESSMENT: 03/16: * BSGs trending down on 03/15 but remain above 200 mg/dL. Patient received 20 units of insulin yesterday (4 units basal + 16 units bolus) * Fasting of 217 mg/dL today. Suspect we are continuing to see effects from held Lantus dose on 03/14. Will increase basal insulin. * Tighten carb coverage. 03/15: * BSGs above goal thus far today - this is not surprising given basal insulin was held last evening. Lantus resumed this morning. * Patient consuming a considerable amount of carbs with meals today (59 grams with breakfast, 49 grams with lunch). Will slightly tighten correction factor and carb coverage. 03/14: * Stressors stable * AM fasting below pre-specified goal range (that was discussed w the provider on 03/09) on two of the last three mornings. Will hold Lantus today then resume at lower dose based on BSG on 03/15 AM * Many of the post-prandial BSG's are above goal range over the last two days. Reduction in Lantus (above) may further increase. Patient consuming some CHO with meals. Will add in very loose CHO ratio, starting tomorrow (since Lantus admin last night may provide some prandial coverage today) 03/13: * Patient received 6 units of basal and 2 units of bolus insulin yesterday. * BSGs yesterday were [phone] mg/dl. Fasting BSG today was 113 mg/dl. Pre-lunch BSG trended up to 202 mg/dl. * Given goal range of 150-180 mg/dl per provider, BSGs are pretty well controlled on current regimen. * Will continue with basal insulin on scale and Novolog with correction factor only and no carb coverage. 03/09: * Carol received 9 units of insulin yesterday (6 were basal) * Fasting BSG within goal range (200-250mg/dL), discussed goal range with Dr. Covaleski, ok to decrease to 150-180mg/dL today, will allow for extra basal insulin (increase ~15%) if BSGs above new goal range * She is still NPO, continue current correction factor, if diet is ordered will likely need carbohydrate coverage * She continues on the heparin drip and IV ceftriaxone 03/07 * BSG goal range of 250-350mg/dL to continue for the next 24 hrs per [employer] * Calculated effective serum osmo 287 this AM * BSGs running in the 220s with insulin drip infusing at 0.6unit/hr this AM, now titrated down to 0.4units/hr. * Phenylephrine weaned off. Propofol remains off. Patient remains intubated. Heparin drip (in D5W) continues to infuse. Amiodarone gtt off. * Continue low dose insulin drip for now as this offers more precision in maintaining BSGs in current range - could consider transition to SQ Novolog Q 4 hr regimen in the near future 03/06 * Carol is a 68 yo T2DM admitted with [facility]. BSG 1069 on arrival to the ED. She was started on IV insulin infusion per DKA/[facility] protocol. * Patient is prescribed basal insulin and metformin but stopped these medications about 2 months ago due to side effects. * Electrolyte abnormalities improved on 03/06 am, however worsening mental status. Calculated serum osmolality = 299. * Neurology consulted due to concerns of seizure activity. New onset A. fib, phenylephrine drip started for hypotension and patient intubated for airway protection. * Plan per ICU rounds is to continue patient on IV insulin infusion at the [facility] goal range. Dextrose containing fluids were stopped due to volume overload. PLAN FOR INPATIENT GLYCEMIC CONTROL: * Hold outpatient oral diabetes medications * Basal insulin * Lantus 5 units SQ this morning. Will give additional 2 units with dinner. * 03/17: Lantus 0-5-7 units SQ qAM (5 units for BSG 150-180, 7 units for BSG > 180 mg/dL) * Bolus insulin * NovoLog per scale ACHS or Q6hrs while NPO * Goal Range: Low 150 mg/dL - High 180 mg/dL * Correction Factor: 35 mg/dL/unit * Nutritional / Prandial insulin per carb ratio of 15 unit per grams CHO consumed
[2024-03-16] MEDS: LANTUS PER UNIT CHARGE SC SCH (17:53)
--- NOTE | 2024-03-16 22:12 | Hospitalist Progress Note ---
Date of Service March 16, 2024 Assessment & Plan (1) Sepsis: Plan: Septic shock, suspected from UTI: E. coli present on admission, on ceftriaxone ( abtx started on admission 03/05/24) suspect 1 week course Urine culture did show E. coli pansensitive last dose ceftriaxone 03/15/2024 extubated 03/08 Consulted Neurology, improving encephalopathy neurology recommending repeat MRI of the brain 03/10 shows tiny right tessa infarct, anoxic ishemic injury also concern if ischemic injury from prolonged seizure as cannot tell me how long she was seizing prior to ems arriving .start aspirin and statin, control risk factors At this time continue keppra and continue vimpat, neurology recommends decreased dosing and stop after one week A fib, treated with amiodarone. blood pressure has improved restarted losartan, bp improved after adding amlodipine Imaging suggests small tessa stroke and possible anoxic brain injury, will have on guideline stoke treatment with aspirin and statin, control secondary risk factors speech did see and cleared for po intake, does aspirate on thin liquids, aspiration precautions no straws Physical therapy recommends rehab. will re-eval on 03/17 (2) Type 2 diabetes mellitus with hyperosmolar hyperglycemic state (HHS): Plan: Secondary to stopping diabetes medications HbA1C 9.2 in September 2023 glycemic pharmacy treated DKA transitioned to basal bolus (3) Elevated troponin: Plan: Suspect demand related given etiologies as above New RBBB and TWI on EKG, TTE performed 03/05 showing left ventricular systolic function normal moderate mitral regurgitation right systolic pressure normal (4) ONEIL (acute kidney injury): Plan: Suspected pre-renal resolved to CKD 3 remove epperson when able (5) Paroxysmal atrial fibrillation: Plan: Patient Avelle paroxysmal atrial fibrillation primordial EL with her sepsis. Is instituted on a heparin drip. Ventricular rate is now controlled patient appears in normal sinus rhythm Acute diastolic heart failure has also resolved likely related from atrial fibrillation Currently not on any rate controlling medications Will consider therapeutic anticoagulation for 1 month. start apixiban 03/11/24 Plan VTE Prophylaxis -apixiban rehab evaluation Admission and Anticipated Discharge Date Admission Date: March 05, 2024 Subjective Patient reports she does not want rehab. Agreeable for a re-eval tomorrow. Family at bedside. Review of Systems Review of Systems: All systems reviewed & are unremarkable except as noted in HPI & below Physical Exam Physical Exam: appears alert able to talk and converse cardiac is regular lungs are clear but decreased at the bases Able to walk with a walker with help of PT. Results & Data Results & Data Vital Signs (Past 12 Hours) Vital Signs Temp Pulse Pulse Resp BP Pulse Ox O2 Del Method 03/16/24 20:48 36.9 C 76 18 176/84 H 98 Room Air 03/16/24 16:18 36.4 C L 73 18 162/85 H 96 Room Air 03/16/24 12:30 77 16 165/87 H 98 Room Air 03/16/24 11:48 36.4 C L 73 15 176/82 H 95 Room Air PG Care Time/CCT Total # of Minutes Spent Total Time Spent with Patient: Total time spent is greater than 50% in coordination of care (as documented) at patient's floor/unit and/or counseling patient: Coding Level of Care Code 13481 SUB INP/OBS CARE 2/35MIN Diagnoses Sepsis A41.9 Type 2 diabetes mellitus with hyperosmolar hyperglycemic state (HHS) E11.00 Elevated troponin R79.89 ONEIL (acute kidney injury) N17.9 Paroxysmal atrial fibrillation I48.0
[2024-03-17] MEDS: INSULIN ASPART PER UNIT CHARGE SC ONE (02:17)
[2024-03-17 08:12] LABS: BUN Creatinine Ratio 18.6 (10-20); Calcium 8.3 mg/dl (8.6-10.3); Creatinine Clr Calc Pharmacy 53.4 ml/min; Est GFR (African American) 70.5 ml/min; Est GFR (Non-African American) 60.9 ml/min; Potassium 3.2 mmol/L (3.5-5.1)
[2024-03-17] MEDS: LANTUS PER UNIT CHARGE SC SCH (12:46)
--- NOTE | 2024-03-17 13:00 | Pharmacy Report ---
Pharmacy Glycemic Short Note 2 - Date of Service March 17, 2024 - Glycemic Short BSG Results (Last 24 hours): 03/16/24 03/16/24 03/16/24 16:28 20:43 20:46 Glucose POC Glucose 258 H 336 H* 309 H* 03/17/24 03/17/24 03/17/24 02:08 07:04 07:50 Glucose 159 H POC Glucose 106 H 172 H 03/17/24 11:48 Glucose POC Glucose 236 H OUTPATIENT ANTIDIABETIC REGIMEN: * ASSESSMENT: 03/17: * BSGs yesterday were [phone] mg/dl. Fasting BSG today was 172 mg/dl. * Patient received 7 units basal and 25 units bolus yesterday. Food/Carb intake has improved compared to several days ago. * Discussed with Dr. Mariano today, he said okay to change goal range to standard glycemic goal range. Therefore, Novolog goal range changed to 120-150 mg/dl today. Carb ratio tightened slightly. * Patient received 5 units of basal dose this morning. Since pre-lunch above 200 mg/dl, added another 5 units of basal dose ~noon. Will re-assess tomorrow and increase basal dose further as required. 03/16: * BSGs trending down on 03/15 but remain above 200 mg/dL. Patient received 20 units of insulin yesterday (4 units basal + 16 units bolus) * Fasting of 217 mg/dL today. Suspect we are continuing to see effects from held Lantus dose on 03/14. Will increase basal insulin. * Tighten carb coverage. 03/15: * BSGs above goal thus far today - this is not surprising given basal insulin was held last evening. Lantus resumed this morning. * Patient consuming a considerable amount of carbs with meals today (59 grams with breakfast, 49 grams with lunch). Will slightly tighten correction factor and carb coverage. 03/14: * Stressors stable * AM fasting below pre-specified goal range (that was discussed w the provider on 03/09) on two of the last three mornings. Will hold Lantus today then resume at lower dose based on BSG on 03/15 AM * Many of the post-prandial BSG's are above goal range over the last two days. Reduction in Lantus (above) may further increase. Patient consuming some CHO with meals. Will add in very loose CHO ratio, starting tomorrow (since Lantus admin last night may provide some prandial coverage today) 03/13: * Patient received 6 units of basal and 2 units of bolus insulin yesterday. * BSGs yesterday were [phone] mg/dl. Fasting BSG today was 113 mg/dl. Pre-lunch BSG trended up to 202 mg/dl. * Given goal range of 150-180 mg/dl per provider, BSGs are pretty well controlled on current regimen. * Will continue with basal insulin on scale and Novolog with correction factor only and no carb coverage. 03/09: * Carol received 9 units of insulin yesterday (6 were basal) * Fasting BSG within goal range (200-250mg/dL), discussed goal range with Dr. Priest, ok to decrease to 150-180mg/dL today, will allow for extra basal insulin (increase ~15%) if BSGs above new goal range * She is still NPO, continue current correction factor, if diet is ordered will likely need carbohydrate coverage * She continues on the heparin drip and IV ceftriaxone 03/07 * BSG goal range of 250-350mg/dL to continue for the next 24 hrs per Shade Maker * Calculated effective serum osmo 287 this AM * BSGs running in the 220s with insulin drip infusing at 0.6unit/hr this AM, now titrated down to 0.4units/hr. * Phenylephrine weaned off. Propofol remains off. Patient remains intubated. Heparin drip (in D5W) continues to infuse. Amiodarone gtt off. * Continue low dose insulin drip for now as this offers more precision in maintaining BSGs in current range - could consider transition to SQ Novolog Q 4 hr regimen in the near future 03/06 * Carol is a 68 yo T2DM admitted with [facility]. BSG 1069 on arrival to the ED. She was started on IV insulin infusion per DKA/HHS protocol. * Patient is prescribed basal insulin and metformin but stopped these medications about 2 months ago due to side effects. * Electrolyte abnormalities improved on 03/06 am, however worsening mental status. Calculated serum osmolality = 299. * Neurology consulted due to concerns of seizure activity. New onset A. fib, phenylephrine drip started for hypotension and patient intubated for airway protection. * Plan per ICU rounds is to continue patient on IV insulin infusion at the [facility] goal range. Dextrose containing fluids were stopped due to volume overload. PLAN FOR INPATIENT GLYCEMIC CONTROL: * Hold outpatient oral diabetes medications * Basal insulin * Lantus 10 units SC daily * Bolus insulin * NovoLog per scale ACHS or Q6hrs while NPO * Goal Range: Low 120 mg/dL - High 150 mg/dL * Correction Factor: 30 mg/dL/unit * Nutritional / Prandial insulin per carb ratio of 1 unit per 10 grams CHO consumed
--- NOTE | 2024-03-17 20:32 | Hospitalist Progress Note ---
Date of Service March 17, 2024 Assessment & Plan (1) Sepsis: Plan: Septic shock, suspected from UTI: E. coli present on admission, on ceftriaxone ( abtx started on admission 03/05/24) suspect 1 week course Urine culture did show E. coli pansensitive last dose ceftriaxone 03/15/2024 extubated 03/08 Consulted Neurology, improving encephalopathy neurology recommending repeat MRI of the brain 03/10 shows tiny right tessa infarct, anoxic ishemic injury also concern if ischemic injury from prolonged seizure as cannot tell me how long she was seizing prior to ems arriving .start aspirin and statin, control risk factors At this time continue keppra and continue vimpat, neurology recommends decreased dosing and stop after one week A fib, treated with amiodarone. blood pressure has improved restarted losartan, bp improved after adding amlodipine Imaging suggests small tessa stroke and possible anoxic brain injury, will have on guideline stoke treatment with aspirin and statin, control secondary risk factors speech did see and cleared for po intake, does aspirate on thin liquids, aspiration precautions no straws Physical therapy recommends rehab. Family agreeable. Need peer to peer . this will be completed on 03/18 [facility] (2) Type 2 diabetes mellitus with hyperosmolar hyperglycemic state (HHS): Plan: Secondary to stopping diabetes medications HbA1C 9.2 in September 2023 glycemic pharmacy treated DKA transitioned to basal bolus (3) Elevated troponin: Plan: Suspect demand related given etiologies as above New RBBB and TWI on EKG, TTE performed 03/05 showing left ventricular systolic function normal moderate mitral regurgitation right systolic pressure normal (4) ONEIL (acute kidney injury): Plan: Suspected pre-renal resolved to CKD 3 remove epperson when able (5) Paroxysmal atrial fibrillation: Plan: Patient Avelle paroxysmal atrial fibrillation primordial EL with her sepsis. Is instituted on a heparin drip. Ventricular rate is now controlled patient appears in normal sinus rhythm Acute diastolic heart failure has also resolved likely related from atrial fibrillation Currently not on any rate controlling medications Will consider therapeutic anticoagulation for 1 month. start apixiban 03/11/24 Plan VTE Prophylaxis -apixiban rehab evaluation Admission and Anticipated Discharge Date Admission Date: March 05, 2024 Subjective Patient reports no new symptoms. Review of Systems Review of Systems: All systems reviewed & are unremarkable except as noted in HPI & below Physical Exam Physical Exam: appears alert able to talk and converse cardiac is regular lungs are clear but decreased at the bases Able to walk with a walker with help of PT. Cardiovascular: Heart Sounds: no murmur Results & Data Results & Data Vital Signs (Past 12 Hours) Vital Signs Temp Pulse Resp BP Pulse Ox O2 Del Method 03/17/24 16:14 36.6 C 74 16 169/88 H 98 Room Air PG Care Time/CCT Total # of Minutes Spent Total Time Spent with Patient: Total time spent is greater than 50% in coordination of care (as documented) at patient's floor/unit and/or counseling patient: Coding Level of Care Code 89148 SUB INP/OBS CARE 2/35MIN Diagnoses Sepsis A41.9 Type 2 diabetes mellitus with hyperosmolar hyperglycemic state (HHS) E11.00 Elevated troponin R79.89 ONEIL (acute kidney injury) N17.9 Paroxysmal atrial fibrillation I48.0
[2024-03-18 07:39] VITALS: PULSE 73; TEMP 97.7; O2SAT 97
[2024-03-18 08:08] LABS: Hematocrit (blood only) 25.7 % (37.0-47.0); Hemoglobin 8.9 g/dl (12.0-16.0); Mean Corpuscular Hemoglobin 29.2 pg (25.0-34.0); Mean Corpuscular Hgb Conc 34.6 g/dL (32.0-36.0); Mean Corpuscular Volume 84.3 fL (80.0-100.0); Mean Platelet Volume 9.3 fL (9.4-12.4); Platelet Count 234 K/uL (130-400); RDW Standard Deviation 41.7 fL (36.4-46.3); Red Blood Count 3.05 M/uL (4.20-5.40); White Blood Count 9.98 K/ul (4.8-10.8)
[2024-03-18] MEDS: LANTUS PER UNIT CHARGE SC SCH (08:29)
[2024-03-18] MEDS ORDERED: LANTUS PER UNIT CHARGE SC SCH (09:00)
[2024-03-18 09:30] VITALS: RESP 14
[2024-03-18] MEDS ORDERED: ACETAMINOPHEN 325 MG TAB PO PRN (14:13)
--- NOTE | 2024-03-18 15:09 | Pharmacy Report ---
Pharmacy Glycemic Short Note 2 - Date of Service March 18, 2024 - Glycemic Short BSG Results (Last 24 hours): 03/17/24 03/17/24 03/18/24 16:43 20:43 07:48 POC Glucose 156 H 110 H 155 H 03/18/24 11:51 POC Glucose 196 H OUTPATIENT ANTIDIABETIC REGIMEN: * ASSESSMENT: 03/18: * Patient received 10 units basal and 21 units bolus yesterday. * Fasting BSG today = 155 mg/dl. Basal insulin dose increased to 15 units this morning. 03/17: * BSGs yesterday were [phone] mg/dl. Fasting BSG today was 172 mg/dl. * Patient received 7 units basal and 25 units bolus yesterday. Food/Carb intake has improved compared to several days ago. * Discussed with Dr. Mariano today, he said okay to change goal range to standard glycemic goal range. Therefore, Novolog goal range changed to 120-150 mg/dl today. Carb ratio tightened slightly. * Patient received 5 units of basal dose this morning. Since pre-lunch above 200 mg/dl, added another 5 units of basal dose ~noon. Will re-assess tomorrow and increase basal dose further as required. 03/16: * BSGs trending down on 03/15 but remain above 200 mg/dL. Patient received 20 units of insulin yesterday (4 units basal + 16 units bolus) * Fasting of 217 mg/dL today. Suspect we are continuing to see effects from held Lantus dose on 03/14. Will increase basal insulin. * Tighten carb coverage. 03/15: * BSGs above goal thus far today - this is not surprising given basal insulin was held last evening. Lantus resumed this morning. * Patient consuming a considerable amount of carbs with meals today (59 grams with breakfast, 49 grams with lunch). Will slightly tighten correction factor and carb coverage. 03/14: * Stressors stable * AM fasting below pre-specified goal range (that was discussed w the provider on 03/09) on two of the last three mornings. Will hold Lantus today then resume at lower dose based on BSG on 03/15 AM * Many of the post-prandial BSG's are above goal range over the last two days. Reduction in Lantus (above) may further increase. Patient consuming some CHO with meals. Will add in very loose CHO ratio, starting tomorrow (since Lantus admin last night may provide some prandial coverage today) 03/13: * Patient received 6 units of basal and 2 units of bolus insulin yesterday. * BSGs yesterday were [phone] mg/dl. Fasting BSG today was 113 mg/dl. Pre-lunch BSG trended up to 202 mg/dl. * Given goal range of 150-180 mg/dl per provider, BSGs are pretty well controlled on current regimen. * Will continue with basal insulin on scale and Novolog with correction factor only and no carb coverage. 03/09: * Carol received 9 units of insulin yesterday (6 were basal) * Fasting BSG within goal range (200-250mg/dL), discussed goal range with Dr. Priest, ok to decrease to 150-180mg/dL today, will allow for extra basal insulin (increase ~15%) if BSGs above new goal range * She is still NPO, continue current correction factor, if diet is ordered will likely need carbohydrate coverage * She continues on the heparin drip and IV ceftriaxone 03/07 * BSG goal range of 250-350mg/dL to continue for the next 24 hrs per Distribution Operations Supervisor * Calculated effective serum osmo 287 this AM * BSGs running in the 220s with insulin drip infusing at 0.6unit/hr this AM, now titrated down to 0.4units/hr. * Phenylephrine weaned off. Propofol remains off. Patient remains intubated. Heparin drip (in D5W) continues to infuse. Amiodarone gtt off. * Continue low dose insulin drip for now as this offers more precision in maintaining BSGs in current range - could consider transition to SQ Novolog Q 4 hr regimen in the near future 03/06 * Carol is a 68 yo T2DM admitted with [facility]. BSG 1069 on arrival to the ED. She was started on IV insulin infusion per DKA/HHS protocol. * Patient is prescribed basal insulin and metformin but stopped these medications about 2 months ago due to side effects. * Electrolyte abnormalities improved on 03/06 am, however worsening mental status. Calculated serum osmolality = 299. * Neurology consulted due to concerns of seizure activity. New onset A. fib, phenylephrine drip started for hypotension and patient intubated for airway protection. * Plan per ICU rounds is to continue patient on IV insulin infusion at the [facility] goal range. Dextrose containing fluids were stopped due to volume overload. PLAN FOR INPATIENT GLYCEMIC CONTROL: * Hold outpatient oral diabetes medications * Basal insulin * Lantus 15 units SC daily * Bolus insulin * NovoLog per scale ACHS or Q6hrs while NPO * Goal Range: Low 120 mg/dL - High 150 mg/dL * Correction Factor: 30 mg/dL/unit * Nutritional / Prandial insulin per carb ratio of 1 unit per 10 grams CHO consumed
--- NOTE | 2024-03-18 16:20 | Discharge Summary ---
Date of Service March 18, 2024 Admission HPI Per Admitting Provider Carol Cavazos is a 68 year old female who presents to the ER in an unresponsive state after her called EMS. Unable to get any history from patient due to unresponsive state. Reportedly she stopped using her diabetes medications 2 months ago due to concerns for side effects. She has a history of doing this previously. She reported to her family member vision blurring for the last week but was out on the porch yesterday mostly her normal self. Last known well 10 PM last night. This morning she was found unresponsive in her bed. Prior to arrival patient vomited and was concern for possible aspiration. Discharge Data Allergies Allergy/AdvReac Type Severity Reaction Status Date / Time No Known Allergies Allergy Verified 09/29/23 08:46 Consultations 03/05/24 09:47 ED Decision to Admit Stat 03/05/24 11:26 Consult Laundry Press Operator Routine 03/06/24 09:52 Consult Neurology Routine 03/06/24 13:43 Consult Cardiology Routine Ordered Studies 03/05/24 08:13 CT head/brain wo con Stat 03/05/24 10:09 CT Abd and Pelvis [CT abd pelvis wo con] Stat 03/06/24 09:03 CT head/brain wo con Stat 03/06/24 09:04 CT chest diagnostic wo con Stat 03/06/24 10:30 MRI Brain [MR brain wo con] Stat 03/10/24 12:15 MRI Brain [MR brain wo con] Routine 03/14/24 10:30 FL video swallow Routine Diabetes Follow up Diabetes Follow-up Needed for HgbA1c >9% Hospital Course (1) Sepsis: Septic shock, suspected from UTI: E. coli present on admission, on ceftriaxone ( abtx started on admission 03/05/24) suspect 1 week course Urine culture did show E. coli pansensitive last dose ceftriaxone 03/15/2024 extubated 03/08 Consulted Neurology, improving encephalopathy neurology recommending repeat MRI of the brain 03/10 shows tiny right tessa infarct, anoxic ishemic injury also concern if ischemic injury from prolonged seizure as cannot tell me how long she was seizing prior to ems arriving .start aspirin and statin, control risk factors At this time continue keppra and continue vimpat, neurology recommends decreased dosing and stop after one week A fib, treated with amiodarone. blood pressure has improved restarted losartan, bp improved after adding amlodipine Imaging suggests small tessa stroke and possible anoxic brain injury, will have on guideline stoke treatment with aspirin and statin, control secondary risk factors speech did see and cleared for po intake, does aspirate on thin liquids, aspiration precautions no straws Physical therapy recommends rehab. Family agreeable. Need peer to peer . this will be completed on 03/18 reveiwed cbc bmp (2) Type 2 diabetes mellitus with hyperosmolar hyperglycemic state (HHS): Secondary to stopping diabetes medications HbA1C 9.2 in September 2023 glycemic pharmacy treated DKA transitioned to basal bolus (3) Elevated troponin: Suspect demand related given etiologies as above New RBBB and TWI on EKG, TTE performed 03/05 showing left ventricular systolic function normal moderate mitral regurgitation right systolic pressure normal (4) ONEIL (acute kidney injury): Suspected pre-renal resolved to CKD 3 remove epperson when able (5) Paroxysmal atrial fibrillation: Patient Avelle paroxysmal atrial fibrillation primordial EL with her sepsis. Is instituted on a heparin drip. Ventricular rate is now controlled patient appears in normal sinus rhythm Acute diastolic heart failure has also resolved likely related from atrial fibrillation Currently not on any rate controlling medications Will consider therapeutic anticoagulation for 1 month. start apixiban 03/11/24 Plan VTE Prophylaxis -apixiban rehab evaluation Discharge Plan Discharge Items Patient Disposition: Home - Home Health Services Reason For Visit: SEPSIS, HHS, UNRESPONSIVE Discharge Diagnosis: sepsis Activity: Resume your previous activity Non-emergency contact: Primary Care Provider Call non-emergency contact if: you have any medication questions Follow-up/Referrals: Tory Reynolds CRNP [Primary Care Provider] - Diet: Carb Consistent or DM2 Diet Texture: Easy to Chew Addtl Attending Provider Instructions: Recommend followup with PCP in 1-2 weeks. Recommend followup with Neurology in 1 month. Pending Studies at Discharge: No Stand-Alone Forms: My [employer], Smoking Cessation Medications and DC Order Prescriptions: New atorvastatin 40 mg Tablet 40 mg PO QAM Qty: 30 0RF amlodipine [Norvasc] 5 mg Tablet 5 mg PO QAM Qty: 30 0RF levetiracetam [Keppra] 250 mg Tablet 250 mg PO BID Qty: 60 0RF lacosamide [Vimpat] 50 mg Tablet 100 mg PO BID Qty: 60 0RF Eliquis 5 mg Tablet 5 mg PO BID Qty: 60 0RF aspirin 81 mg Tablet,Delayed Release (Dr/Ec) 81 mg PO QAM Qty: 30 0RF Continued sertraline 50 mg tablet 50 mg PO DAILY Qty: 30 2RF Rx Instructions: all filled in 2022 per pharmacy clotrimazole [Lotrimin AF (clotrimazole)] 1 % cream 1 applic topical BID Qty: 30 0RF Rx Instructions: all filled in 2022 per pharmacy apply 2-3 times a day for 7-10 days AFTER lesion has cleared. (DME) lancets [OneTouch Delica Plus Lancet] 33 gauge misc See Rx Instructions .Route Qty: 100 11RF Rx Instructions: test blood sugar 3 x daily (DME) OneTouch Verio test strips Strip See Rx Instructions .Route Qty: 100 11RF Rx Instructions: test blood sugar 3 x daily (DME) pen needle, diabetic [BD Ultra-Fine Snow Pen Needle] 32 gauge x 5/32" needle See Rx Instructions .Route Qty: 100 3RF Rx Instructions: use once daily ascorbic acid (vitamin C) 250 mg tablet 250 mg PO DAILY Rx Instructions: unable to verify metformin 500 mg tablet 500 mg PO BIDWMEAL Rx Instructions: all filled in 2022 per pharmacy see printed instructions. Start with one pill daily at your biggest meal, WHILE EATING insulin degludec [Tresiba FlexTouch U-100] 100 unit/mL (3 mL) insulin pen 0 unit subcut DAILY Rx Instructions: original directions 22 units daily all filled in 2022 per pharmacy Mounjaro 2.5 mg/0.5 mL pen injector 0 mg subcut WK Rx Instructions: original directions: 2.5 mg weekly losartan 100 mg tablet 100 mg PO DAILY Qty: 30 0RF Changed furosemide 20 mg tablet 0 mg PO DAILY PRN (Reason: leg swelling) Qty: 0 0RF Rx Instructions: orginal directions: 20 mg daily all filled in 2022 at ([facility]) per pharmacy Discontinued gabapentin 100 mg capsule 100 mg PO TID Qty: 90 2RF Rx Instructions: all filled in 2022 per pharmacy buspirone 5 mg tablet 5 mg PO TID Qty: 90 2RF Rx Instructions: all filled in 2022 per pharmacy rosuvastatin [Crestor] 20 mg tablet 20 mg PO DAILY Qty: 30 2RF Rx Instructions: all filled in 2022 per pharmacy Discharge Orders: Discharge Order (Routine); Ordered 03/18/24 Ordered By: Davian Torres/Other Patient Handouts: High Blood Sugar (Hyperglycemia), Managing Type 2 Diabetes Admission Data Admit Date/Time: 03/05/24 11:19 Attending Provider: Davian Mariano Admit Provider: Jake Conrad Primary Care Provider: Tory Reynolds Other Providers: [facility]; [facility]; Chitra Gaston [facility]; Jake Conrad; Elton Lacey; Dennis Reyes; Dane Reynolds; Guerline Muro; Nery Morales; Tere Vargas; Robert Hope; Storm Heck; Demetri Lion; Shaun Lund; Ian Mcbride; Karan Holman; Myles Lowe Jr; Beny Muñoz; Dora Cornelius; Kathryn Mcghee; Adria Kaur; Adria Ryan; Rylan Silva; Charlotte De León; Tristan Meredith; Bharati Brown; Patrick Bhat.; Raoul Hope; Amado Ledbetter; Jaguar Canela; [place],Home Care Coding Diagnoses Sepsis A41.9 Type 2 diabetes mellitus with hyperosmolar hyperglycemic state (HHS) E11.00 Elevated troponin R79.89 ONEIL (acute kidney injury) N17.9 Paroxysmal atrial fibrillation I48.0
[2024-03-18 16:28] VITALS: BP 169/88
== END 2024-03-18 17:02 | disposition home health service (06) | DRG 871 ==
LOC: ED 08:12 → 1E 11:15 → SUATTDRO 11:19 → 2S 03-08 18:30 → 3W 03-13 17:55

== ENCOUNTER 2024-03-24 10:27 | Observation (INO) ==
[2024-03-24 11:14] LABS: Basophils # (auto) 0.03 K/uL (0.00-0.20); Basophils % (auto) 0.3 %; Eosinophils # (auto) 0.01 K/uL (0.00-0.50); Eosinophils % (auto) 0.1 %; Hematocrit (blood only) 22.6 % (37.0-47.0); Hemoglobin 7.7 g/dl (12.0-16.0); Immature Granulocytes # (auto) 0.08 K/uL (0.01-0.20); Immature Granulocytes % (auto) 0.9 %; Lymphocytes # (auto) 0.98 K/uL (1.20-3.40); Lymphocytes % (auto) 10.6 %; Mean Corpuscular Hemoglobin 29.6 pg (25.0-34.0); Mean Corpuscular Hgb Conc 34.1 g/dL (32.0-36.0); Mean Corpuscular Volume 86.9 fL (80.0-100.0); Mean Platelet Volume 9.2 fL (9.4-12.4); Monocytes # (auto) 0.64 K/uL (0.11-0.59); Monocytes % (auto) 6.9 %; Neutrophils # (auto) 7.52 K/uL (1.40-6.50); Neutrophils % (auto) 81.2 %; Platelet Count 142 K/uL (130-400); RDW Coefficient of Variation 14.6 % (11.5-14.5); RDW Standard Deviation 45.5 fL (36.4-46.3); White Blood Count 9.26 K/ul (4.8-10.8)
--- NOTE | 2024-03-24 11:33 | XRay Report ---
SINGLE VIEW CHEST CLINICAL HISTORY: Sepsis FINDINGS: An AP, portable, upright chest radiograph is compared to study dated 03/07/2024. The cardiome diastinal silhouette is top normal for projection. Chronic interstitial thickening is similar to prev ious. There is mild bibasilar scarring/atelectasis. The lungs and pleural spaces are otherwise clear. No pneumothorax is seen. The skeletal structures are osteopenic. The bony thorax is grossly intact. IMPRESSION: No active disease in the chest. ACT 112: Negative or not required by law. Electronically signed by: Pola Ayala M.D. 03/24/2024 11:32 AM
--- NOTE | 2024-03-24 11:35 | XRay Report ---
RIGHT SHOULDER 3 VIEWS CLINICAL HISTORY: Fall. FINDINGS: 3 views of the right shoulder are obtained. No prior studies are available for comparison a t the time of dictation. The skeletal structures are osteopenic. There is no radiographic evidence of fracture or dislocation. Productive degenerative change is seen at the acromioclavicular joint. Mild osteoarthritic change is noted at the glenohumeral articulation. The overlying soft tissues are with in normal limits. The imaged right lung parenchyma appears clear. IMPRESSION: No acute bony abnormality is identified. Electronically signed by: Pola Ayala M.D. 03/24/2024 11:33 AM
[2024-03-24 11:38] LABS: Troponin I High Sensitivity 34.1 pg/ml (0-14)
[2024-03-24 11:39] LABS: Alanine Aminotransferase 12 U/L (7-52); Albumin Globulin Ratio 1.1 (0.9-2); Albumin Level 2.7 gm/dl (3.4-5.0); Alkaline Phosphatase 64 U/L (34-104); Anion Gap 6 (3-11); Aspartate Aminotransferase 20 U/L (13-39); BUN Creatinine Ratio 20.3 (10-20); Bilirubin,Total 0.9 mg/dl (0.2-1.0); Blood Urea Nitrogen 25 mg/dl (6-23); Carbon Dioxide 24 mmol/L (21-32); Chloride 105 mmol/L (98-107); Est GFR (African American) 52.9 ml/min; Est GFR (Non-African American) 45.7 ml/min; Globulin 2.5 gm/dl (2.5-4.0); Glucose 90 mg/dl (70-99(Fasting)); Magnesium 1.5 mg/dl (1.7-2.4); Potassium 3.3 mmol/L (3.5-5.1); Sodium 135 mmol/L (136-145); Total Protein 5.2 gm/dl (6.0-8.3)
[2024-03-24 11:41] LABS: Partial Thromboplastin Ratio 1.2; Partial Thromboplastin Time 33 Seconds (21-31); Prothrombin Time 10.8 Seconds (9.0-12.0)
--- NOTE | 2024-03-24 11:51 | Emergency Department Note ---
Impression & Plan Weakness, Acute UTI, Hypomagnesemia ED Provider Note Provider: David Quinones MD DATE OF SERVICE: 03/24/2024 CHIEF COMPLAINT: Weakness, chills and fatigue HISTORY OF PRESENT ILLNESS: Patient is a 68-year-old female past medical history of noncompliance with diabetes, A-fib, UTI recent hospitalization here this past week for sepsis and UTI as well as A-fib presenting from home today via ambulance. Patient endorses some generalized fatigue and a bit of chest congestion. Family states that she has been having chills and at times feeling warm. Minimal ambulation at home but did fall yesterday and states her right shoulder is a little sore. Denies striking her head. Denies loss of consciousness. Denies any significant pain at this time on exam. Does have a bit of nausea but specifically denies abdominal pain. Has had some diarrhea since discharge. No sick contacts. Not currently on antibiotics. reached out to home nursing today with concerns about her vital signs. PAST MEDICAL HISTORY: As noted above MEDICATIONS: Reviewed home medication list on [facility] SOCIAL HISTORY: Resides at home with PHYSICAL EXAM: GENERAL: alert and oriented in no acute distress on stretcher Head: normocephalic and atraumatic EYES: No injection, discharge or icterus. PERRL, EOMI. NECK: Trachea midline. Supple. ENT: Mucous membranes pink and moist. LUNGS: Airway patent. No retractions. Breath sounds clear with good air entry bilaterally. HEART: Regular rate and rhythm. No chest wall tenderness ABDOMEN: Soft and non-tender, without guarding or rebound. Stable pelvis SKIN: Acyanotic, warm, dry, without rashes EXTREMITIES: Without swelling, tenderness or deformity NEUROLOGICAL: No focal deficits. No aphasia. No facial droop or slurred speech. Normal strength and tone in the extremities. Sensation to gross touch normal. Ambulatory. EK bpm normal sinus rhythm with right bundle branch block. No acute ST segment elevation or depression with some nonspecific anterior T wave inversions and a QTc of 496. CONTINUOUS CARDIAC MONITORING: was ordered and showed a heart rate of 70s-90s bpm in normal sinus rhythm GCS 15. Patient's laboratory studies and imaging reviewed. Differential includes Infection, dehydration, metabolic abnormality, hypo/hyperglycemia, electrolyte disturbance, anemia, hypoxia, cardiac sources, intracerebral event, toxicologic, neurologic, traumatic injury as well as other pathologies. IMPRESSION/MEDICAL DECISION MAKING: Patient awake and alert without focal deficits. Afebrile here. Recent hospitalization for sepsis and with some diarrhea. No sick contacts. Little bit of nausea but no significant abdominal tenderness on exam. Right shoulder not significantly tender evidence of deformity but given that she did fell will obtain x-ray here as well as chest x-ray and CT of the head and cervical spine as she is on anticoagulation although she denies LOC or striking her head. Blood obtained here today without leukocytosis. Does have a borderline temperature here 37.6 Celsius. Slightly worsened anemia of 7.7 from 8.7 last week. Borderline hyponatremia and hypokalemia today with a bit of acute kidney injury creatinine 1.23. Troponin 34 significantly improved from previous last week but unsure if it still downtrending at this time or not. Repeat troponin stable around 35. Magnesium is low. IV supplementation with IV magnesium and some fluids ordered. Little bit of potassium ordered as well. Urinalysis questionable for infection. Will cover with antibiotics. Still awaiting stool sample to exclude significant recent antibiotics or other infectious diarrhea.. Given her fatigue and weakness with hypomagnesemia and some early signs of dehydration discussion with patient and family will bring into the hospital for further observation and care. Hospitalist team contacted DIAGNOSIS: Weakness, acute UTI, hypomagnesemia DISPOSITION: Hospitalist will evaluate Patient was agreeable with this plan. Past Med/Surg History Problem List (Updated 03/24/24 @ 15:39 by Cliff James PA-C) Type 2 diabetes mellitus, uncontrolled Hypokalemia Diarrhea Fall Hypomagnesemia (Acute) Acute UTI (Acute) Weakness (Acute) Homonymous hemianopsia Acute UTI (Acute) Encephalopathy (Acute) Sepsis (Acute) Mitral regurgitation Prolonged QT interval Paroxysmal atrial fibrillation Non-convulsive status epilepticus Pulmonary edema Hyperosmolar hyperglycemic state (HHS) Acute metabolic encephalopathy Severe sepsis Complicated UTI (urinary tract infection) Lactic acidosis HHS (hypothenar hammer syndrome) Elevated troponin ONEIL (acute kidney injury) Unresponsive state DKA (diabetic ketoacidosis) UTI (urinary tract infection) Sepsis Hypertension (Acute) Diabetes mellitus type 2, uncontrolled, with complications Anxiety and depression Neuropathic pain of both feet Edema of both legs Diabetic neuropathy Elevated vitamin B12 level Hyponatremia Type 2 diabetes mellitus with hyperosmolar hyperglycemic state (HHS) (Acute) Chest pain RBBB Type II diabetes mellitus with neurological manifestations, uncontrolled (Chronic) Noncompliance with treatment plan (Acute) Lichen sclerosus et atrophicus (Acute) Medical History Pulmonary edema Hyperosmolar hyperglycemic state (HHS) Acute metabolic encephalopathy Severe sepsis Complicated UTI (urinary tract infection) Lactic acidosis HHS (hypothenar hammer syndrome) Neuropathic pain of both feet Edema of both legs Anxiety and depression Type 2 diabetes mellitus, uncontrolled Hyperlipidemia Lichen sclerosus et atrophicus Noncompliance with treatment plan Type II diabetes mellitus with neurological manifestations, uncontrolled Diabetes mellitus type 2, uncontrolled, with complications Surgical History History of lumbar surgery L4-L5 H/O total hysterectomy Family History Father Diabetes Prostate cancer Grandmother Diabetes Aunt Colorectal cancer Brother Stroke Denies family history of Ovarian cancer Myocardial infarction Breast cancer Social History Smoking Status: Never smoker Second Hand Exposure: No; Do You Dip or Chew Tobacco: No; Tobacco Cessation Education Requested by Patient: No Hx Alcohol Use: No Hx Substance Use: No Preferred Language: Taiwanese Communication Ability: Impaired Communication Ability Comment: Patient reports she has trouble seeing Visual Impairment: No Limitations Hearing Ability: Normal Piping Engineer Required: No Beliefs That Will Affect Care: None marital status: Current Living Situation: Spouse and Family Current Living Situation Comment: Lives with spouse current occupational status: retired 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. How many Children do You have: 3 Other Information That Helps Us Care for You: No Feels Safe at Home: Yes Safety Concerns: Feels Safe At This Time Childhood Exposure to Second-Hand Smoke: No Diet: regular caffeine: Yes (soda) during the past year weight has: remained stable Dental Care, Regularly: No Physical Activity Frequency: Does not Exercise Seatbelt Use: always Sunscreen Use: No Assistive Devices: Walker Allergies Allergies Allergy/AdvReac Type Severity Reaction Status Date / Time No Known Allergies Allergy Verified 09/29/23 08:46 Home Meds Home Medications Medication Instructions Recorded Confirmed ascorbic acid (vitamin C) 250 mg 250 mg PO DAILY 12/14/19 03/24/24 tablet metformin 500 mg tablet 500 mg PO BIDWMEAL 07/30/23 03/24/24 insulin degludec 100 unit/mL (3 22 unit subcut UD 03/05/24 03/24/24 mL) subcutaneous pen (Tresiba FlexTouch U-100 insulin) tirzepatide 2.5 mg/0.5 mL 2.5 mg subcut WK 03/05/24 03/24/24 subcutaneous pen injector (Silvana) furosemide 20 mg tablet 20 mg PO UD PRN leg swelling 03/24/24 03/24/24 Previous Rx's Medication Instructions Recorded lancets 33 gauge (OneTouch Delica #100 ea 05/28/23 Plus Lancet) pen needle, diabetic 32 gauge x #100 ea 05/28/23" (BD Ultra-Fine Snow Pen Needle) sertraline 50 mg tablet 50 mg PO DAILY #30 tabs 08/13/23 amlodipine 5 mg tablet (Norvasc) 5 mg PO QAM #30 tabs 03/18/24 apixaban 5 mg tablet (Eliquis) 5 mg PO BID #60 tabs 03/18/24 aspirin 81 mg tablet,delayed 81 mg PO QAM #30 tabs 03/18/24 release atorvastatin 40 mg tablet 40 mg PO QAM #30 tabs 03/18/24 lacosamide 50 mg tablet (Vimpat) 100 mg (2 x 50 mg) PO BID #60 tabs 03/18/24 levetiracetam 250 mg tablet 250 mg PO BID #60 tabs 03/18/24 (Keppra) losartan 100 mg tablet 100 mg PO DAILY #30 tabs 03/18/24 OneTouch Verio test strips (blood #100 ea 03/22/24 sugar diagnostic) blood sugar diagnostic (Accu-Chek #100 ea 03/24/24 Elvira Plus test strips) Results & Data (ED) Vital Signs Vital Signs - 24 hr 03/24/24 10:34 03/24/24 10:35 03/24/24 10:57 Temperature 38.3 C H Temperature Source Rectal Pulse Rate 95 H Pulse Rate [Bilateral] 94 H Pulse Rhythm Pulse Rhythm [Bilateral] Regular Pulse Strength [Bilateral] Normal Respiratory Rate 16 Respiratory Effort / Characteristics Non-Labored Respiratory Depth Normal Respiratory Pattern Regular Blood Pressure [Right Arm] 145/79 H Blood Pressure Mean [Right Arm] 101 Blood Pressure Position [Right Arm] Pulse Oximetry 95 Oxygen Delivery Method Room Air Sepsis Recent Fever Within 48 Hours Yes Sepsis New/Unexplained Change in Mental Status No Sepsis Action Taken by Nursing No Action Required 03/24/24 11:35 03/24/24 11:35 03/24/24 11:51 Temperature Temperature Source Pulse Rate 85 Pulse Rate [Bilateral] 85 Pulse Rhythm Regular Pulse Rhythm [Bilateral] Pulse Strength [Bilateral] Respiratory Rate 14 14 Respiratory Effort / Characteristics Non-Labored Respiratory Depth Normal Respiratory Pattern Regular Blood Pressure [Right Arm] 137/75 Blood Pressure Mean [Right Arm] 95 Blood Pressure Position [Right Arm] Pulse Oximetry 98 97 Oxygen Delivery Method Room Air Room Air Room Air Sepsis Recent Fever Within 48 Hours Sepsis New/Unexplained Change in Mental Status Sepsis Action Taken by Nursing 03/24/24 13:20 03/24/24 15:00 03/24/24 16:07 Temperature 37.6 C H Temperature Source Oral Pulse Rate Pulse Rate [Bilateral] 75 97 H 82 Pulse Rhythm Pulse Rhythm [Bilateral] Regular Pulse Strength [Bilateral] Respiratory Rate 12 19 18 Respiratory Effort / Characteristics Non-Labored Non-Labored Non-Labored Spontaneous Respiratory Depth Normal Normal Normal Respiratory Pattern Regular Regular Blood Pressure [Right Arm] 142/78 H 152/79 H 152/79 H Blood Pressure Mean [Right Arm] 99 103 103 Blood Pressure Position [Right Arm] Lying Lying Pulse Oximetry 99 99 100 Oxygen Delivery Method Room Air Room Air Room Air Sepsis Recent Fever Within 48 Hours Sepsis New/Unexplained Change in Mental Status Sepsis Action Taken by Nursing 03/24/24 17:54 Temperature Temperature Source Pulse Rate Pulse Rate [Bilateral] 81 Pulse Rhythm Pulse Rhythm [Bilateral] Pulse Strength [Bilateral] Respiratory Rate 16 Respiratory Effort / Characteristics Non-Labored Spontaneous Respiratory Depth Normal Respiratory Pattern Blood Pressure [Right Arm] 151/77 H Blood Pressure Mean [Right Arm] 101 Blood Pressure Position [Right Arm] Pulse Oximetry 98 Oxygen Delivery Method Room Air Sepsis Recent Fever Within 48 Hours Sepsis New/Unexplained Change in Mental Status Sepsis Action Taken by Nursing Laboratory Data 03/24/24 16:33 03/24/24 10:52 Lab Results 03/24/24 03/24/24 03/24/24 Range/Units 10:47 10:52 11:33 WBC 9.26 (4.8-10.8) K/ul RBC 2.60 L (4.20-5.40) M/uL Hgb 7.7 L (12.0-16.0) g/dl Hct 22.6 L (37.0-47.0) % MCV 86.9 (80.0-100.0) fL MCH 29.6 (25.0-34.0) pg MCHC 34.1 (32.0-36.0) g/dL RDW Std Deviation 45.5 (36.4-46.3) fL RDW Coeff of Abel 14.6 H (11.5-14.5) % Plt Count 142 (130-400) K/uL MPV 9.2 L (9.4-12.4) fL Immature Gran % (Auto) 0.9 % Neut % (Auto) 81.2 % Lymph % (Auto) 10.6 % Frederick % (Auto) 6.9 % Eos % (Auto) 0.1 % Baso % (Auto) 0.3 % Neut # (Auto) 7.52 H (1.40-6.50) K/uL Lymph # (Auto) 0.98 L (1.20-3.40) K/uL Frederick # (Auto) 0.64 H (0.11-0.59) K/uL Eos # (Auto) 0.01 (0.00-0.50) K/uL Baso # (Auto) 0.03 (0.00-0.20) K/uL Immature Gran # (Auto) 0.08 (0.01-0.20) K/uL RBC Morphology Unremarkable PT 10.8 (9.0-12.0) Seconds INR 1.0 (0.9-1.1) APTT 33 H (21-31) Seconds PTT Ratio 1.2 Sodium 135 L (136-145) mmol/L Potassium 3.3 L (3.5-5.1) mmol/L Chloride 105 (98-107) mmol/L Carbon Dioxide 24 (21-32) mmol/L Anion Gap 6 (3-11) BUN 25 H (6-23) mg/dl Creatinine 1.23 H (0.6-1.2) mg/dl Est Cr Clr Drug Dosing Not Reportable Est GFR ( Amer) 52.9 ml/min Est GFR (Non-Af Amer) 45.7 ml/min BUN/Creatinine Ratio 20.3 H (10-20) Glucose 90 (70-99(Fasting)) mg/dl POC Glucose 97 (70-99) mg/dl Lactate 0.8 (0.4-2.0) mmol/L Calcium 8.0 L (8.6-10.3) mg/dl Magnesium 1.5 L (1.7-2.4) mg/dl Total Bilirubin 0.9 (0.2-1.0) mg/dl AST 20 (13-39) U/L ALT 12 (7-52) U/L Alkaline Phosphatase 64 (34-104) U/L Troponin I High Sens 34.1 H (0-14) pg/ml Total Protein 5.2 L (6.0-8.3) gm/dl Albumin 2.7 L (3.4-5.0) gm/dl Globulin 2.5 (2.5-4.0) gm/dl Albumin/Globulin Ratio 1.1 (0.9-2) Procalcitonin 0.14 (0-0.5) ng/ml Urine Color Yellow Urine Appearance Clear (Clear) Urine pH 6.5 (4.5-7.5) Ur Specific Ames 1.018 (1.000-1.030) Urine Protein 3+ H (Negative) Urine Glucose (UA) Negative (Negative) Urine Ketones Negative (Negative) Urine Blood 2+ H (Negative) Urine Nitrite Negative (Negative) Urine Bilirubin Negative (Negative) Urine Urobilinogen Negative (Negative) Ur Leukocyte Esterase Trace H (Negative) Urine WBC (Auto) 21-50 H (0-5) /hpf Urine RBC (Auto) 11-20 H (0-2) /hpf U Hyaline Cast (Auto) 3-5 H (0-2) /lpf U Epithel Cells (Auto) 0-2 (0-2) /hpf Urine Bacteria (Auto) None Seen (None Seen) Adenovirus (PCR) (NotDetected) B. pertussis DNA (PCR) (NotDetected) B.parapertussis DNA PCR (NotDetected) C. pneumoniae DNA (PCR) (NotDetected) Coronavirus OC43 (PCR) (NotDetected) Coronavirus HKU1 (PCR) (NotDetected) Coronavirus 229E (PCR) (NotDetected) SARS-CoV-2 (PCR) (NotDetected) Coronavirus NL63 (PCR) (NotDetected) Human Metapneumovir PCR (NotDetected) Influenza Type A (PCR) (NotDetected) Influenza Type B (PCR) (NotDetected) M. pneumoniae (PCR) (NotDetected) Parainfluenza 1 (PCR) (NotDetected) Parainfluenza 2 (PCR) (NotDetected) Parainfluenza 3 (PCR) (NotDetected) Parainfluenza 4 (PCR) (NotDetected) RSV (PCR) (NotDetected) Entero/Rhino (PCR) (NotDetected) Blood Type Antibody Screen Crossmatch 03/24/24 03/24/24 03/24/24 Range/Units 12:12 12:43 16:33 WBC (4.8-10.8) K/ul RBC (4.20-5.40) M/uL Hgb 8.3 L (12.0-16.0) g/dl Hct 24.4 L (37.0-47.0) % MCV (80.0-100.0) fL MCH (25.0-34.0) pg MCHC (32.0-36.0) g/dL RDW Std Deviation (36.4-46.3) fL RDW Coeff of Abel (11.5-14.5) % Plt Count (130-400) K/uL MPV (9.4-12.4) fL Immature Gran % (Auto) % Neut % (Auto) % Lymph % (Auto) % Frederick % (Auto) % Eos % (Auto) % Baso % (Auto) % Neut # (Auto) (1.40-6.50) K/uL Lymph # (Auto) (1.20-3.40) K/uL Frederick # (Auto) (0.11-0.59) K/uL Eos # (Auto) (0.00-0.50) K/uL Baso # (Auto) (0.00-0.20) K/uL Immature Gran # (Auto) (0.01-0.20) K/uL RBC Morphology PT (9.0-12.0) Seconds INR (0.9-1.1) APTT (21-31) Seconds PTT Ratio Sodium (136-145) mmol/L Potassium (3.5-5.1) mmol/L Chloride (98-107) mmol/L Carbon Dioxide (21-32) mmol/L Anion Gap (3-11) BUN (6-23) mg/dl Creatinine (0.6-1.2) mg/dl Est Cr Clr Drug Dosing Est GFR ( Amer) ml/min Est GFR (Non-Af Amer) ml/min BUN/Creatinine Ratio (10-20) Glucose (70-99(Fasting)) mg/dl POC Glucose (70-99) mg/dl Lactate (0.4-2.0) mmol/L Calcium (8.6-10.3) mg/dl Magnesium (1.7-2.4) mg/dl Total Bilirubin (0.2-1.0) mg/dl AST (13-39) U/L ALT (7-52) U/L Alkaline Phosphatase (34-104) U/L Troponin I High Sens 35.8 H (0-14) pg/ml Total Protein (6.0-8.3) gm/dl Albumin (3.4-5.0) gm/dl Globulin (2.5-4.0) gm/dl Albumin/Globulin Ratio (0.9-2) Procalcitonin (0-0.5) ng/ml Urine Color Urine Appearance (Clear) Urine pH (4.5-7.5) Ur Specific Ames (1.000-1.030) Urine Protein (Negative) Urine Glucose (UA) (Negative) Urine Ketones (Negative) Urine Blood (Negative) Urine Nitrite (Negative) Urine Bilirubin (Negative) Urine Urobilinogen (Negative) Ur Leukocyte Esterase (Negative) Urine WBC (Auto) (0-5) /hpf Urine RBC (Auto) (0-2) /hpf U Hyaline Cast (Auto) (0-2) /lpf U Epithel Cells (Auto) (0-2) /hpf Urine Bacteria (Auto) (None Seen) Adenovirus (PCR) Not Detected (NotDetected) B. pertussis DNA (PCR) Not Detected (NotDetected) B.parapertussis DNA PCR Not Detected (NotDetected) C. pneumoniae DNA (PCR) Not Detected (NotDetected) Coronavirus OC43 (PCR) Not Detected (NotDetected) Coronavirus HKU1 (PCR) Not Detected (NotDetected) Coronavirus 229E (PCR) Not Detected (NotDetected) SARS-CoV-2 (PCR) Not Detected (NotDetected) Coronavirus NL63 (PCR) Not Detected (NotDetected) Human Metapneumovir PCR Not Detected (NotDetected) Influenza Type A (PCR) Not Detected (NotDetected) Influenza Type B (PCR) Not Detected (NotDetected) M. pneumoniae (PCR) Not Detected (NotDetected) Parainfluenza 1 (PCR) Not Detected (NotDetected) Parainfluenza 2 (PCR) Not Detected (NotDetected) Parainfluenza 3 (PCR) Not Detected (NotDetected) Parainfluenza 4 (PCR) Not Detected (NotDetected) RSV (PCR) Not Detected (NotDetected) Entero/Rhino (PCR) Not Detected (NotDetected) Blood Type O Positive Antibody Screen NEGATIVE Crossmatch See Detail Administered Medications Discontinued Medications Acetaminophen (Acetaminophen 325 Mg Tab) 650 mg PO NOW STA Stop: 03/24/24 17:20 Last Admin: 03/24/24 17:50 Dose: 650 mg Documented By: NOREEN Sodium Chloride (Nss) 500 mls @ 999 mls/hr IV .Q31M ONE Stop: 03/24/24 11:51 Last Infusion: 03/24/24 12:44 Dose: Infused Documented By: Admin: 03/24/24 12:09 Dose: 999 mls/hr Documented By: AMANDEEP Magnesium Sulfate/Dextrose (Magnesium Sulfate / D5w) 1 gm in 100 mls @ 200 mls/hr IV Q30M SUMAYA Stop: 03/24/24 12:59 Last Infusion: 03/24/24 14:14 Dose: Infused Documented By: Admin: 03/24/24 13:02 Dose: 200 mls/hr Documented By: Infusion: 03/24/24 12:56 Dose: Infused Documented By: Admin: 03/24/24 12:26 Dose: 200 mls/hr Documented By: AMANDEEP Potassium Chloride (K Ash / Wtr) 10 meq in 100 mls @ 100 mls/hr IV ONE ONE Stop: 03/24/24 14:51 Last Infusion: 03/24/24 15:42 Dose: Infused Documented By: Admin: 03/24/24 14:23 Dose: 100 mls/hr Documented By: AMANDEEP Ceftriaxone Sodium (Rocephin) 2,000 mg in 50 mls @ 100 mls/hr IV NOW STA Stop: 03/24/24 14:31 Last Infusion: 03/24/24 14:32 Dose: Infused Documented By: Infusion: 03/24/24 14:31 Dose: 0 mls/hr Documented By: Admin: 03/24/24 14:30 Dose: 100 mls/hr Documented By: AMANDEEP Potassium Chloride (K Ash / Wtr) 10 meq in 100 mls @ 100 mls/hr IV ONE ONE Stop: 03/24/24 16:37 Last Infusion: 03/24/24 17:38 Dose: Infused Documented By: Admin: 03/24/24 15:51 Dose: 100 mls/hr Documented By: AMANDEEP Parenteral Electrolytes (Plasma-Lyte A Ph 7.4) 500 mls @ 999 mls/hr IV .Q31M ONE Stop: 03/24/24 17:49 Last Admin: 03/24/24 17:50 Dose: 999 mls/hr Documented By: NOREEN Ondansetron HCl (Ondansetron Inj 2 Mg/Ml 2 Ml Vial) 4 mg IV NOW STA Stop: 03/24/24 11:22 Last Admin: 03/24/24 12:09 Dose: Not Given Documented By: AMANDEEP Imaging Data Radiologist's Impression: Chest X-Ray 03/24/24 10:53 SINGLE VIEW CHEST CLINICAL HISTORY: Sepsis FINDINGS: An AP, portable, upright chest radiograph is compared to study dated 03/07/2024. The cardiomediastinal silhouette is top normal for projection. Chronic interstitial thickening is similar to previous. There is mild bibasilar scarring/atelectasis. The lungs and pleural spaces are otherwise clear. No pneumothorax is seen. The skeletal structures are osteopenic. The bony thorax is grossly intact. IMPRESSION: No active disease in the chest. ACT 112: Negative or not required by law. Electronically signed by: Pola Ayala M.D. 03/24/2024 11:[address] 03/24/24 11:20 CT cervical spine wo con CLINICAL HISTORY: fall, weak TECHNIQUE: Multidetector row helical CT of the cervical spine was performed without administration of intravenous contrast. Coronal and sagittal reformations were obtained. Automated dose lowering techniques and/or adjustment according to patient size were utilized for this exam. Comparison: None available at the time of this dictation. FINDINGS: No acute fractures or subluxations are identified. The vertebral body heights and disk spaces are well maintained. The alignment is normal. Soft tissues are unremarkable. IMPRESSION: No evidence of acute bony injury. ACT 112: Negative or not required by law. Electronically signed by: Pacheco Melendrez M.D. 03/24/2024 12:[address] 03/24/24 11:20 CT SCAN OF THE BRAIN WITHOUT IV CONTRAST CLINICAL HISTORY: Fall. Generalized weakness. Fatigue. COMPARISON STUDY: CT of the brain dated 03/06/2024. TECHNIQUE: Unenhanced axial CT scan of the brain is performed from the vertex to the skull base. A dose lowering technique was utilized adhering to the principles of ALARA. CT DOSE: 973.17 mGy.cm FINDINGS: Brain parenchyma: There is age-related involutional change noting mild subcortical and periventricular microangiopathic disease. There is no hemorrhage, mass effect, or evidence of acute territorial ischemia by CT criteria. Diamond-white matter differentiation is preserved. No extra-axial fluid collection is seen. Ventricles, sulci, cisterns: Prominent secondary to involutional change. Intracranial vasculature: There is atherosclerotic calcification of the cavernous carotid and vertebral arteries. Calvarium: Unremarkable. Sinuses and mastoids: There is trace mucosal thickening within the ethmoid and sphenoid sinuses. The mastoid air cells are well pneumatized. Orbits: The bony orbits are grossly intact. IMPRESSION: There is no hemorrhage, mass effect, or evidence of acute territorial ischemia by CT criteria. ACT 112: Negative or not required by law. Electronically signed by: Pola Ayala M.D. 03/24/2024 12:14 PM Shoulder X-Ray 03/24/24 11:20 RIGHT SHOULDER 3 VIEWS CLINICAL HISTORY: Fall. FINDINGS: 3 views of the right shoulder are obtained. No prior studies are available for comparison at the time of dictation. The skeletal structures are osteopenic. There is no radiographic evidence of fracture or dislocation. Productive degenerative change is seen at the acromioclavicular joint. Mild osteoarthritic change is noted at the glenohumeral articulation. The overlying soft tissues are within normal limits. The imaged right lung parenchyma appears clear. IMPRESSION: No acute bony abnormality is identified. Electronically signed by: Pola Ayala M.D. 03/24/2024 11:33 AM Discharge Plan Visit Data Chief Complaint: Illness ED Provider: David Quinones Discharge Problem: Weakness, Acute UTI, Hypomagnesemia Patient Disposition: Being Evaluated by Hospitalist Forms Stand Alone Forms: My [facility] [employer] Prescriptions Prescriptions: No Action sertraline 50 mg tablet 50 mg PO DAILY Qty: 30 2RF Rx Instructions: all filled in 2022 per pharmacy (DME) OneTouch Verio test strips Strip See Rx Instructions .Route Qty: 100 11RF Rx Instructions: test blood sugar 3 x daily (DME) Accu-Chek Elvira Plus test strp Strip See Rx Instructions .Route Qty: 100 3RF Rx Instructions: Test 3 times a day (DME) lancets [OneTouch Delica Plus Lancet] 33 gauge misc See Rx Instructions .Route Qty: 100 11RF Rx Instructions: test blood sugar 3 x daily (DME) pen needle, diabetic [BD Ultra-Fine Snow Pen Needle] 32 gauge x 5/32" needle See Rx Instructions .Route Qty: 100 3RF Rx Instructions: use once daily ascorbic acid (vitamin C) 250 mg tablet 250 mg PO DAILY Rx Instructions: unable to verify metformin 500 mg tablet 500 mg PO BIDWMEAL Rx Instructions: all filled in 2022 per pharmacy see printed instructions. Start with one pill daily at your biggest meal, WHILE EATING insulin degludec [Tresiba FlexTouch U-100] 100 unit/mL (3 mL) insulin pen 22 unit subcut UD Rx Instructions: original directions 22 units daily all filled in 2022 per pharmacy Mounjaro 2.5 mg/0.5 mL pen injector 2.5 mg subcut WK Rx Instructions: original directions: 2.5 mg weekly losartan 100 mg tablet 100 mg PO DAILY Qty: 30 0RF atorvastatin 40 mg Tablet 40 mg PO QAM Qty: 30 0RF amlodipine [Norvasc] 5 mg Tablet 5 mg PO QAM Qty: 30 0RF levetiracetam [Keppra] 250 mg Tablet 250 mg PO BID Qty: 60 0RF lacosamide [Vimpat] 50 mg Tablet 100 mg PO BID Qty: 60 0RF Eliquis 5 mg Tablet 5 mg PO BID Qty: 60 0RF aspirin 81 mg Tablet,Delayed Release (Dr/Ec) 81 mg PO QAM Qty: 30 0RF furosemide 20 mg tablet 20 mg PO UD PRN (Reason: leg swelling) Rx Instructions: orginal directions: 20 mg daily all filled in 2022 at ([facility]) per pharmacy Referrals Referrals: Tory Reynolds CRNP [Primary Care Provider] -
[2024-03-24 12:06] LABS: RBC Morphology Unremarkable
[2024-03-24] MEDS: SODIUM CHLORIDE 0.9% 500 ML IV ONE (12:09)
[2024-03-24] MEDS: ONDANSETRON INJ 2 MG/ML 2 ML VIAL IV STA (12:09)
--- NOTE | 2024-03-24 12:15 | CT Scan Report ---
CT SCAN OF THE BRAIN WITHOUT IV CONTRAST CLINICAL HISTORY: Fall. Generalized weakness. Fatigue. COMPARISON STUDY: CT of the brain dated 03/06/2024. TECHNIQUE: Unenhanced axial CT scan of the brain is performed from the vertex to the skull base. A do se lowering technique was utilized adhering to the principles of ALARA. CT DOSE: 973.17 mGy.cm FINDINGS: Brain parenchyma: There is age-related involutional change noting mild subcortical and periventricula r microangiopathic disease. There is no hemorrhage, mass effect, or evidence of acute territorial isc hemia by CT criteria. Diamond-white matter differentiation is preserved. No extra-axial fluid collection is seen. Ventricles, sulci, cisterns: Prominent secondary to involutional change. Intracranial vasculature: There is atherosclerotic calcification of the cavernous carotid and vertebr al arteries. Calvarium: Unremarkable. Sinuses and mastoids: There is trace mucosal thickening within the ethmoid and sphenoid sinuses. The mastoid air cells are well pneumatized. Orbits: The bony orbits are grossly intact. IMPRESSION: There is no hemorrhage, mass effect, or evidence of acute territorial ischemia by CT chen benavides. ACT 112: Negative or not required by law. Electronically signed by: Pola Ayala M.D. 03/24/2024 12:14 PM
[2024-03-24] MEDS: MAGNESIUM SULFATE / D5W 1 GM/100 ML BAG IV SCH (12:26)
--- NOTE | 2024-03-24 12:35 | CT Scan Report ---
CT cervical spine wo con CLINICAL HISTORY: fall, weak TECHNIQUE: Multidetector row helical CT of the cervical spine was performed without administration of intravenous contrast. Coronal and sagittal reformations were obtained. Automated dose lowering techn iques and/or adjustment according to patient size were utilized for this exam. Comparison: None available at the time of this dictation. FINDINGS: No acute fractures or subluxations are identified. The vertebral body heights and disk spaces are wel l maintained. The alignment is normal. Soft tissues are unremarkable. IMPRESSION: No evidence of acute bony injury. ACT 112: Negative or not required by law. Electronically signed by: Pacheco Melendrez M.D. 03/24/2024 12:34 PM
[2024-03-24 12:52] LABS: Appearance Urine Clear (Clear); Bacteria Urine Automated None Seen (None Seen); Bilirubin Urine Negative (Negative); Blood Urine 2+ (Negative); Color Urine Yellow; Epithelial Cell Urine Auto 0-2 /hpf (0-2); Glucose Urine UA Negative (Negative); Ketones Urine Negative (Negative); Leukocyte Esterase Urine Trace (Negative); Nitrite Urine Negative (Negative); Protein Urine 3+ (Negative); Specific Gravity Urine 1.018 (1.000-1.030); Urobilinogen Urine Negative (Negative); WBC Urine Automated 21-50 /hpf (0-5); pH Urine 6.5 (4.5-7.5)
[2024-03-24 13:23] LABS: Adenovirus PCR Not Detected (NotDetected); Bordetella parapertussis PCR Not Detected (NotDetected); Bordetella pertussis PCR Not Detected (NotDetected); Chlamydia pneumoniae PCR Not Detected (NotDetected); Coronavirus 229E PCR Not Detected (NotDetected); Coronavirus CoV-2 (COVID19)PCR Not Detected (NotDetected); Coronavirus HKU1 PCR Not Detected (NotDetected); Coronavirus NL63 PCR Not Detected (NotDetected); Coronavirus OC43PCR Not Detected (NotDetected); Human Metapneumovirus PCR Not Detected (NotDetected); Influenza A PCR Not Detected (NotDetected); Influenza B PCR Not Detected (NotDetected); Mycoplasma pneumoniae PCR Not Detected (NotDetected); Parainfluenza Virus 1 PCR Not Detected (NotDetected); Parainfluenza Virus 2 PCR Not Detected (NotDetected); Parainfluenza Virus 3 PCR Not Detected (NotDetected); Parainfluenza Virus 4 PCR Not Detected (NotDetected); Respiratory Syncytial VirusPCR Not Detected (NotDetected); Rhinovirus/Enterovirus PCR Not Detected (NotDetected)
--- NOTE | 2024-03-24 14:17 | History & Physical Report ---
Date of Service March 24, 2024 Assessment & Plan (1) Diarrhea: Plan: Fever and diarrhea began the evening of 03/23 Recent [place] admission for urosepsis from 03/05 - 03/18 Source is likely either a recurrence of urinary source or diarrheal source Lactate WNL No leukocytosis, but febrile at 37.6 C at time of admission Rocephin 2000 mg IV q24h NSS 500 mL + Plasma-Lyte 500 mL boluses given While patient febrile and slightly tachycardic (90-97bpm), do not feel she is septic (given normotensive + normal Lactate) and will defer full fluid bolus Continue gentle fluid resus with Plasma-Lyte at 80mL/hr x 1 Acetaminophen as needed for pain/fever Viral stool panel ordered, pending C. difficile ordered, pending In the setting of recent hospitalization/antibiotics, will add on contact precautions until C. difficile is ruled out Follow cultures A.m. CBC, BMP, mag (2) Fall: Plan: Fall on 03/23 Head, cervical spine,and right shoulder imaging without acute abnormalities Fall precautions PT/OT evaluations appreciated (3) ONEIL (acute kidney injury): Plan: Mild; BUN 25, creatinine 1.23 (baseline 0.96), and EGFR 45.7 on arrival Avoid nephrotoxic agents where possible Hold losartan for now (4) Hypomagnesemia: Plan: Mag 1.5 on arrival Magnesium sulfate 1 g x 2 given Recheck a.m. mag (5) Hypokalemia: Plan: Mild; K 3.3 on arrival Likely secondary to GI losses K rider 10mEq x 2 given Trend BMP (6) Elevated troponin: Plan: Troponin 34->35 on arrival Clinically, patient denies chest pain Continuous telemetry monitoring (7) Type 2 diabetes mellitus, uncontrolled: Plan: Last A1c at 15.9% on 03/2024 Patient is on insulin Tresiba 22 units daily Hold metformin, Mounjaro Lantus 11u BID while inpatient SSI; with target BSG range 110-140mg/dL, CF 35, carb ratio 12 T2DM diet BSG ACHS Adjust regimen as needed Pharmacy glycemic management consult (8) Paroxysmal atrial fibrillation: Plan: Continue Eliquis (9) Hypertension: Plan: Continue amlodipine Hold losartan (10) UTI (urinary tract infection): (11) RBBB: Plan Disposition: Admit to PCU telemetry DNR/DNI T2DM diet VTE PPx: On Eliquis History of Present Illness Chief Complaint: Diarrheal illness, fever, fall Primary Care Provider: MARNI Kirk Carol is a 68-year-old female with PMH of T2DM, HHS, RBBB, diabetic neuropathy, sepsis, DKA, unresponsive state, complicated UTIs, and encephalopathy. She presented for fever, cough, diarrhea, and lethargy that began on 03/23. Patient also sustained a ground-level fall on the morning of 03/24. Recent [place] admission from 03/05 - 03/18 for urosepsis. She has had no recurrence of burning with urination or urinary symptoms since leaving the hospital. Patient reports that her diarrhea started yesterday, and she has not taken any additional medications for that with fever. No recent change in diet. No blood in her stool or urine. Patient fell this morning and struck her right shoulder and leg. No head strike. No LOC. No tripping/dizziness. She reports that her legs just gave out on her. She has had 1 prior fall in the past, and does not use ambulatory assist devices. Patient reports that she took all of her regular morning medications including her insulin; no recent change in medications. Patient denies smoking, alcohol use, and tobacco use. Patient is hypertensive at 142/78 and febrile at 37.6 C at time of admission. ED course: Rocephin 2000 mg IV Zofran 4 mg IV Magnesium sulfate 1 g ROS: Patient endorses fever, chills, sinus pressure, dry cough, blurry vision, lightheadedness, headache, diarrhea, and neuropathy in her feet. Patient denies night sweats, dizziness, chest pain, chest pressure, shortness of breath, pleuritic CP, hemoptysis, abdominal pain, N/B, blood in her stool/diarrhea, blood in her urine, burning with urination, or dysuria. Allergies Allergy/AdvReac Type Severity Reaction Status Date / Time No Known Allergies Allergy Verified 09/29/23 08:46 Home Medications Medication Instructions Recorded Confirmed Type ascorbic acid (vitamin C) 250 mg 250 mg PO DAILY 12/14/19 03/24/24 History tablet lancets 33 gauge (OneTouch Delica #100 ea 05/28/23 03/24/24 Rx Plus Lancet) pen needle, diabetic 32 gauge x #100 ea 05/28/23 03/24/24 Rx " (BD Ultra-Fine Snow Pen Needle) metformin 500 mg tablet 500 mg PO BIDWMEAL 07/30/23 03/24/24 History sertraline 50 mg tablet 50 mg PO DAILY #30 tabs 08/13/23 03/24/24 Rx insulin degludec 100 unit/mL (3 22 unit subcut UD 03/05/24 03/24/24 History mL) subcutaneous pen (Tresiba FlexTouch U-100 insulin) tirzepatide 2.5 mg/0.5 mL 2.5 mg subcut WK 03/05/24 03/24/24 History subcutaneous pen injector (Silvana) amlodipine 5 mg tablet (Norvasc) 5 mg PO QAM #30 tabs 03/18/24 03/24/24 Rx apixaban 5 mg tablet (Eliquis) 5 mg PO BID #60 tabs 03/18/24 03/24/24 Rx aspirin 81 mg tablet,delayed 81 mg PO QAM #30 tabs 03/18/24 03/24/24 Rx release atorvastatin 40 mg tablet 40 mg PO QAM #30 tabs 03/18/24 03/24/24 Rx lacosamide 50 mg tablet (Vimpat) 100 mg (2 x 50 mg) PO BID #60 tabs 03/18/24 03/24/24 Rx levetiracetam 250 mg tablet 250 mg PO BID #60 tabs 03/18/24 03/24/24 Rx (Keppra) losartan 100 mg tablet 100 mg PO DAILY #30 tabs 03/18/24 03/24/24 Rx OneTouch Verio test strips (blood #100 ea 03/22/24 03/24/24 Rx sugar diagnostic) blood sugar diagnostic (Accu-Chek #100 ea 03/24/24 Rx Elvira Plus test strips) furosemide 20 mg tablet 20 mg PO UD PRN leg swelling 03/24/24 03/24/24 History Past Med/Surg History Problem List (Updated 03/24/24 @ 15:39 by Cliff James PA-C) Type 2 diabetes mellitus, uncontrolled Hypokalemia Diarrhea Fall Hypomagnesemia (Acute) Acute UTI (Acute) Weakness (Acute) Homonymous hemianopsia Acute UTI (Acute) Encephalopathy (Acute) Sepsis (Acute) Mitral regurgitation Prolonged QT interval Paroxysmal atrial fibrillation Non-convulsive status epilepticus Pulmonary edema Hyperosmolar hyperglycemic state (HHS) Acute metabolic encephalopathy Severe sepsis Complicated UTI (urinary tract infection) Lactic acidosis HHS (hypothenar hammer syndrome) Elevated troponin ONEIL (acute kidney injury) Unresponsive state DKA (diabetic ketoacidosis) UTI (urinary tract infection) Sepsis Hypertension (Acute) Diabetes mellitus type 2, uncontrolled, with complications Anxiety and depression Neuropathic pain of both feet Edema of both legs Diabetic neuropathy Elevated vitamin B12 level Hyponatremia Type 2 diabetes mellitus with hyperosmolar hyperglycemic state (HHS) (Acute) Chest pain RBBB Type II diabetes mellitus with neurological manifestations, uncontrolled (Chronic) Noncompliance with treatment plan (Acute) Lichen sclerosus et atrophicus (Acute) Medical History Pulmonary edema Hyperosmolar hyperglycemic state (HHS) Acute metabolic encephalopathy Severe sepsis Complicated UTI (urinary tract infection) Lactic acidosis HHS (hypothenar hammer syndrome) Neuropathic pain of both feet Edema of both legs Anxiety and depression Type 2 diabetes mellitus, uncontrolled Hyperlipidemia Lichen sclerosus et atrophicus Noncompliance with treatment plan Type II diabetes mellitus with neurological manifestations, uncontrolled Diabetes mellitus type 2, uncontrolled, with complications Surgical History History of lumbar surgery L4-L5 H/O total hysterectomy Family History Father Diabetes Prostate cancer Grandmother Diabetes Aunt Colorectal cancer Brother Stroke Denies family history of Ovarian cancer Myocardial infarction Breast cancer Social History Smoking Status: Never smoker Second Hand Exposure: No; Do You Dip or Chew Tobacco: No; Tobacco Cessation Education Requested by Patient: No Hx Alcohol Use: No Hx Substance Use: No Preferred Language: Polish Communication Ability: Impaired Communication Ability Comment: Patient reports she has trouble seeing Visual Impairment: No Limitations Hearing Ability: Normal Scene Painter Required: No Beliefs That Will Affect Care: None marital status: Current Living Situation: Spouse and Family Current Living Situation Comment: Lives with spouse current occupational status: retired 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 How many Children do You have: 3 Other Information That Helps Us Care for You: No Feels Safe at Home: Yes Safety Concerns: Feels Safe At This Time Childhood Exposure to Second-Hand Smoke: No Diet: regular caffeine: Yes (soda) during the past year weight has: remained stable Dental Care, Regularly: No Physical Activity Frequency: Does not Exercise Seatbelt Use: always Sunscreen Use: No Assistive Devices: Walker Review of Systems Review of Systems: See HPI above Physical Exam Physical Exam: General: Diaphoretic with chills; pleasant affect; well-nourished; cooperative; SpO2 99% on RA HEENT: normocephalic, atraumatic; no scleral icterus; PERRLA; moist mucus membrane; vision and hearing grossly intact Neck: supple; no lymphadenopathy; trachea midline Skin: warm, without signs of tenting; no cyanosis; no rashes, bruising, lesions, or erythema noted CV: chest wall NTP; RRR; S1/S2 normal; no murmurs/rubs/gallops; pulses intact and symmetric at radial, DP, and PT Lungs: no acute respiratory distress; symmetrical chest wall expansion; clear breath sounds across all lung mosher w/o adventitious sounds; no wheezing ABD: Soft, NTP; BS present; no rebound/guarding; no distention MSK: no tics or fasciculations; no edema noted in the LEs b/l, nonerythematous Neuro: A&Ox3; normal mood and affect; fluent speech; no focal deficits; sensation grossly intact in the LEs b/l Results & Data Results & Data Vital Signs (Past 12 Hours) Vital Signs Temp Pulse Pulse Resp BP Pulse Ox O2 Del Method 03/24/24 13:20 37.6 C H 75 12 142/78 H 99 Room Air 03/24/24 11:51 Room Air 03/24/24 11:35 85 14 137/75 97 Room Air 03/24/24 11:35 85 14 98 Room Air 03/24/24 10:57 95 H 03/24/24 10:34 38.3 C H 94 H 16 145/79 H 95 Room Air Laboratory Results Abnormal lab results 03/24/24 03/24/24 03/24/24 Range/Units 10:52 11:33 12:43 RBC 2.60 L (4.20-5.40) M/uL Hgb 7.7 L (12.0-16.0) g/dl Hct 22.6 L (37.0-47.0) % RDW Coeff of Abel 14.6 H (11.5-14.5) % MPV 9.2 L (9.4-12.4) fL Neut # (Auto) 7.52 H (1.40-6.50) K/uL Lymph # (Auto) 0.98 L (1.20-3.40) K/uL Nye # (Auto) 0.64 H (0.11-0.59) K/uL APTT 33 H (21-31) Seconds Sodium 135 L (136-145) mmol/L Potassium 3.3 L (3.5-5.1) mmol/L BUN 25 H (6-23) mg/dl Creatinine 1.23 H (0.6-1.2) mg/dl BUN/Creatinine Ratio 20.3 H (10-20) Calcium 8.0 L (8.6-10.3) mg/dl Magnesium 1.5 L (1.7-2.4) mg/dl Troponin I High Sens 34.1 H 35.8 H (0-14) pg/ml Total Protein 5.2 L (6.0-8.3) gm/dl Albumin 2.7 L (3.4-5.0) gm/dl Urine Protein 3+ H (Negative) Urine Blood 2+ H (Negative) Ur Leukocyte Esterase Trace H (Negative) Urine WBC (Auto) 21-50 H (0-5) /hpf Urine RBC (Auto) 11-20 H (0-2) /hpf U Hyaline Cast (Auto) 3-5 H (0-2) /lpf Diagnostic Findings Chest X-Ray 03/24/24 10:53 SINGLE VIEW CHEST CLINICAL HISTORY: Sepsis FINDINGS: An AP, portable, upright chest radiograph is compared to study dated 03/07/2024. The cardiomediastinal silhouette is top normal for projection. Chronic interstitial thickening is similar to previous. There is mild bibasilar scarring/atelectasis. The lungs and pleural spaces are otherwise clear. No pneumothorax is seen. The skeletal structures are osteopenic. The bony thorax is grossly intact. IMPRESSION: No active disease in the chest. ACT 112: Negative or not required by law. Electronically signed by: Pola Ayala M.D. 03/24/2024 11:[address] 03/24/24 11:20 CT cervical spine wo con CLINICAL HISTORY: fall, weak TECHNIQUE: Multidetector row helical CT of the cervical spine was performed without administration of intravenous contrast. Coronal and sagittal reformations were obtained. Automated dose lowering techniques and/or adjustment according to patient size were utilized for this exam. Comparison: None available at the time of this dictation. FINDINGS: No acute fractures or subluxations are identified. The vertebral body heights and disk spaces are well maintained. The alignment is normal. Soft tissues are unremarkable. IMPRESSION: No evidence of acute bony injury. ACT 112: Negative or not required by law. Electronically signed by: Pacheco Melendrez M.D. 03/24/2024 12:[address] 03/24/24 11:20 CT SCAN OF THE BRAIN WITHOUT IV CONTRAST CLINICAL HISTORY: Fall. Generalized weakness. Fatigue. COMPARISON STUDY: CT of the brain dated 03/06/2024. TECHNIQUE: Unenhanced axial CT scan of the brain is performed from the vertex to the skull base. A dose lowering technique was utilized adhering to the principles of ALARA. CT DOSE: 973.17 mGy.cm FINDINGS: Brain parenchyma: There is age-related involutional change noting mild subcortical and periventricular microangiopathic disease. There is no hemorrhage, mass effect, or evidence of acute territorial ischemia by CT criteria. Diamond-white matter differentiation is preserved. No extra-axial fluid collection is seen. Ventricles, sulci, cisterns: Prominent secondary to involutional change. Intracranial vasculature: There is atherosclerotic calcification of the cavernous carotid and vertebral arteries. Calvarium: Unremarkable. Sinuses and mastoids: There is trace mucosal thickening within the ethmoid and sphenoid sinuses. The mastoid air cells are well pneumatized. Orbits: The bony orbits are grossly intact. IMPRESSION: There is no hemorrhage, mass effect, or evidence of acute territorial ischemia by CT criteria. ACT 112: Negative or not required by law. Electronically signed by: Pola Ayala M.D. 03/24/2024 12:14 PM Shoulder X-Ray 03/24/24 11:20 RIGHT SHOULDER 3 VIEWS CLINICAL HISTORY: Fall. FINDINGS: 3 views of the right shoulder are obtained. No prior studies are available for comparison at the time of dictation. The skeletal structures are osteopenic. There is no radiographic evidence of fracture or dislocation. Productive degenerative change is seen at the acromioclavicular joint. Mild osteoarthritic change is noted at the glenohumeral articulation. The overlying soft tissues are within normal limits. The imaged right lung parenchyma appears clear. IMPRESSION: No acute bony abnormality is identified. Electronically signed by: Pola Ayala M.D. 03/24/2024 11:33 AM ECG Additional Comments: ECG reveals NSR at 91 bpm with RBBB; QTc 496 RBBB present on 03/05/2024 EKG Code Status & VTE Plan Code Status DNR/DNI VTE Prophylaxis Plan VTE Prophylaxis will be ordered: Yes Supervising Physician Co-Signing Physician Notes Patient seen and examined, chart reviewed, case discussed with Cliff James PA-C and I agree with the assessment and plan as above except as otherwise noted Labs and images reviewed 68-year-old female with fever, cough, diarrhea, fatigue, lethargy. Ground-level fall due to weakness without head strike. Recent admission for urosepsis. She has had increased diarrhea, but has not had recurrence of her urinary symptoms. C. difficile testing for post antibiotic C. difficile colitis is pending. Stool bio fire is pending. She is febrile on admission with a negative resp panel. Nontoxic at time of bedside reevaluation. No abdominal pain, lungs are clear bedside assessment. Agree with above. PG Care Time/CCT Total # of Minutes Spent Total Time Spent with Patient: Total time spent is greater than 50% in coordination of care (as documented) at patient's floor/unit and/or counseling patient: [place] [address] INT INP/OBS CARE 3/75MIN Patient Type Established Medical Decision Making High Complexity Diagnoses Diarrhea R19.7 Fall W19.XXXA ONEIL (acute kidney injury) N17.9 Hypomagnesemia E83.42 Hypokalemia E87.6 Elevated troponin R79.89 Type 2 diabetes mellitus, uncontrolled E11.65 Paroxysmal atrial fibrillation I48.0 Hypertension I10 UTI (urinary tract infection) N39.0 RBBB I45.10
[2024-03-24] MEDS: POTASSIUM CHLORIDE / WTR 10 MEQ/100 ML PLCT IV ONE ×2 (14:23→15:51)
[2024-03-24] MEDS: cefTRIAXone SODIUM 2,000 MG/50 ML BAG IV STA (14:30)
[2024-03-24] MEDS ORDERED: SODIUM CHLORIDE 0.9% 250 ML IV PRN (15:02)
--- NOTE | 2024-03-24 15:40 | Electrocardiogram Report ---
Test Reason : Blood Pressure : / mmHG Vent. Rate : 091 BPM Atrial Rate : 091 BPM P-R Int : 136 ms QRS Dur : 124 ms QT Int : 404 ms P-R-T Axes : 004 000 003 degrees QTc Int : 496 ms Normal sinus rhythm Right bundle branch block Possible Lateral infarct , age undetermined Abnormal ECG When compared with ECG of 07-MAR-2024 18:35, Right bundle branch block is now Present Confirmed by Shaun Lund ([id number]) on 03/24/2024 3:39:58 PM Referred By: Confirmed By:Shaun Lund
[2024-03-24 16:59] LABS: Hematocrit (blood only) 24.4 % (37.0-47.0); Hemoglobin 8.3 g/dl (12.0-16.0)
[2024-03-24] MEDS: ACETAMINOPHEN 325 MG TAB PO STA (17:50)
[2024-03-24] MEDS: PLASMA-LYTE A 500 ML IV ONE (17:50)
[2024-03-24] MEDS: PLASMA-LYTE A 1,000 ML IV SCH (19:05)
[2024-03-24 21:46] LABS: Hematocrit (blood only) 22.4 % (37.0-47.0); Hemoglobin 7.6 g/dl (12.0-16.0)
[2024-03-24] MEDS ORDERED: ONDANSETRON INJ 2 MG/ML 2 ML VIAL IV PRN (23:20)
[2024-03-24] MEDS ORDERED: CARBOHYDRATES FOR HYPOGLYCEMIA PO PRN (23:20)
[2024-03-24] MEDS ORDERED: LANTUS PER UNIT CHARGE SQ SCH (23:20)
[2024-03-24] MEDS ORDERED: GLUCOSE 40% GEL 15 GM TUBE PO PRN (23:20)
[2024-03-24] MEDS ORDERED: PHARMACY GLYCEMIC MGMT CONSULT PRN (23:20)
[2024-03-24] MEDS ORDERED: ACETAMINOPHEN 325 MG TAB PO PRN (23:20)
[2024-03-24] MEDS ORDERED: GLUCOSE 10 TAB/TUBE PO PRN (23:20)
[2024-03-24] MEDS ORDERED: DEXTROSE 50% 50 ML SYRINGE IV PRN (23:20)
[2024-03-24] MEDS ORDERED: GLUCAGON FOR INJ 1 MG VIAL SQ PRN (23:20)
[2024-03-24] MEDS: INSULIN ASPART PER UNIT CHARGE SC SCH (23:52)
[2024-03-24] MEDS: levETIRAcetam 250 MG TAB PO SCH (23:53)
[2024-03-24] MEDS: LACOSAMIDE 50 MG TABLET PO SCH (23:53)
[2024-03-24] MEDS: APIXABAN 5 MG TABLET PO SCH (23:53)
[2024-03-25 01:31] LABS: Cdiff Antigen Positive; Cdiff Toxin B Gene (2yr or >) Positive Cdiff Gene (Neg)
[2024-03-25 01:32] LABS: Cdiff Toxin A+B Negative Cdiff Toxin (Negative)
[2024-03-25 06:55] LABS: Basophils # (auto) 0.02 K/uL (0.00-0.20); Basophils % (auto) 0.3 %; Eosinophils # (auto) 0.12 K/uL (0.00-0.50); Hematocrit (blood only) 22.2 % (37.0-47.0); Hemoglobin 7.6 g/dl (12.0-16.0); Immature Granulocytes # (auto) 0.02 K/uL (0.01-0.20); Immature Granulocytes % (auto) 0.3 %; Lymphocytes # (auto) 0.88 K/uL (1.20-3.40); Lymphocytes % (auto) 14.8 %; Mean Corpuscular Hemoglobin 29.8 pg (25.0-34.0); Mean Corpuscular Hgb Conc 34.2 g/dL (32.0-36.0); Mean Corpuscular Volume 87.1 fL (80.0-100.0); Mean Platelet Volume 8.8 fL (9.4-12.4); Monocytes # (auto) 0.43 K/uL (0.11-0.59); Monocytes % (auto) 7.2 %; Neutrophils # (auto) 4.48 K/uL (1.40-6.50); Neutrophils % (auto) 75.4 %; Platelet Count 131 K/uL (130-400); RDW Coefficient of Variation 14.6 % (11.5-14.5); RDW Standard Deviation 46.1 fL (36.4-46.3); Red Blood Count 2.55 M/uL (4.20-5.40); White Blood Count 5.95 K/ul (4.8-10.8)
[2024-03-25 07:13] LABS: Calcium 7.9 mg/dl (8.6-10.3); Creatinine Clr Calc Pharmacy 49.3 ml/min; Est GFR (African American) 64.1 ml/min; Est GFR (Non-African American) 55.3 ml/min; Potassium 3.4 mmol/L (3.5-5.1)
[2024-03-25 07:16] LABS: RBC Morphology Unremarkable
[2024-03-25 07:29] LABS: Troponin I High Sensitivity 15.6 pg/ml (0-14)
--- NOTE | 2024-03-25 08:11 | Hospitalist Progress Note ---
Date of Service March 25, 2024 Assessment & Plan (1) Diarrhea: Plan: Fever and diarrhea began the evening of 03/23, no leukocytosis Rocephin 2000 mg IV stopped urine is negative respiratory biofire negative Viral stool panel ordered, pending, C. difficile gene positive toxin negative will use vancomycin blood cultures negative (2) ONEIL (acute kidney injury): Plan: Mild; BUN 25, creatinine 1.23 (baseline 0.96), and EGFR 45.7 on arrival Avoid nephrotoxic agents where possible Hold losartan Hypokalemia replete Hypomagnesemia replete pt has anemia, worse than DC likely some chronic disease component, will check iron add famotidine (3) Elevated troponin: Plan: Troponin 34->35 on arrival no acs suspected, maybe demand ischemia from illness or from oneil (4) Type 2 diabetes mellitus, uncontrolled: Plan: Last A1c at 15.9% on 03/2024 Patient is on insulin Tresiba 22 units daily Hold metformin, Mounjaro Lantus 11u BID while inpatient (5) Paroxysmal atrial fibrillation: Plan: Continue Eliquis, pt is anemic will follow (6) Fall: Plan: Fall on 03/23 Head, cervical spine,and right shoulder imaging without acute ab normalities Fall precautions PT/OT evaluations appreciated Plan DNR/DNI VTE PPx: On Eliquis Admission and Anticipated Discharge Date Admission Date: March 24, 2024 Subjective pt cannot explain fall, she feels about back to normal, has some gi symptoms and c diff gene not toxin, but with loose bowels and excoriated pepito area will treat with po vancomycin Physical Exam Physical Exam: awake and alert, no focal issues except diarrhea and skin irritation from it cardiac is regular lungs are clear Results & Data Results & Data Vital Signs (Past 12 Hours) Vital Signs Temp Pulse Pulse Pulse Resp BP Pulse Ox 03/25/24 03:05 98.6 F 72 18 142/78 H 98 03/24/24 23:58 67 03/24/24 23:38 98.6 F 66 18 135/76 98 03/24/24 21:41 66 16 125/72 98 O2 Del Method 03/25/24 03:05 Room Air 03/24/24 23:58 03/24/24 23:38 Room Air 03/24/24 21:41 Room Air Laboratory Results review cbc review chemistry PG Care Time/CCT Total # of Minutes Spent Total Time Spent with Patient: Total time spent is greater than 50% in coordination of care (as documented) at patient's floor/unit and/or counseling patient: Coding Level of Care Code 89591 SUB INP/OBS CARE 3/50MIN Diagnoses Diarrhea R19.7 ONEIL (acute kidney injury) N17.9 Elevated troponin R79.89 Type 2 diabetes mellitus, uncontrolled E11.65 Paroxysmal atrial fibrillation I48.0 Fall W19.XXXA
[2024-03-25] MEDS: SERTRALINE HCL 50 MG TABLET PO SCH (08:44)
[2024-03-25] MEDS: ASPIRIN 81 MG ECTAB PO SCH (08:44)
[2024-03-25] MEDS: ATORVASTATIN 40 MG TAB PO SCH (08:44)
[2024-03-25] MEDS: amLODIPine BESYLATE 5 MG TAB PO SCH (08:44)
[2024-03-25] MEDS: VANCOMYCIN HCL 125 MG/2.5ML SOLN PO SCH (11:35)
[2024-03-25] MEDS: CHERRY SYRUP 5 ML UDP PO SCH (11:35)
--- NOTE | 2024-03-25 12:16 | Pharmacy Report ---
Pharmacy Glycemic Short Note 2 - Date of Service March 25, 2024 - Glycemic Short BSG Results (Last 24 hours): 03/24/24 03/25/24 03/25/24 23:27 06:29 07:29 Glucose 89 POC Glucose 76 95 03/25/24 11:41 Glucose POC Glucose 114 H OUTPATIENT ANTIDIABETIC REGIMEN: * Tresiba 22 units daily * Metformin 500mg BID * A1c: 15.9% ASSESSMENT: * Patient admitted after experiencing fever and diarrhea since 03/23. * Patient was recently admitted 03/05-03/18 for urosepsis. Previous glycemic consult notes were reviewed. At that time patient required little basal insulin. * BSGs over the past 24 hours were 97-76-95 (fasting today)-104 mg/dL. Will continue with current moderate stress weight based NovoLog scale and add a conservative Lantus scale for this evening. * Patient is ordered a diet. PLAN FOR INPATIENT GLYCEMIC CONTROL: * Hold outpatient oral diabetes medications * Basal insulin * Lantus scale HS per BSG- 0,5, or 7 units (see MAR for details) * Bolus insulin * NovoLog per scale ACHS or Q6hrs while NPO * Goal Range: Low 110 mg/dL - High 140 mg/dL * Correction Factor: 35 mg/dL/unit * Nutritional / Prandial insulin per carb ratio of 1 unit per 12 grams CHO consumed
[2024-03-25] MEDS: cefTRIAXone SODIUM 2,000 MG/50 ML BAG IV SCH (15:27)
[2024-03-25] MEDS: LANTUS PER UNIT CHARGE SC SCH (20:57)
[2024-03-25] MEDS: FAMOTIDINE 20 MG TAB PO SCH (21:00)
[2024-03-26 07:30] LABS: Basophils # (auto) 0.02 K/uL (0.00-0.20); Basophils % (auto) 0.4 %; Eosinophils % (auto) 6.6 %; Hemoglobin 7.6 g/dl (12.0-16.0); Immature Granulocytes # (auto) 0.02 K/uL (0.01-0.20); Immature Granulocytes % (auto) 0.4 %; Lymphocytes # (auto) 0.99 K/uL (1.20-3.40); Lymphocytes % (auto) 21.7 %; Mean Corpuscular Hemoglobin 29.3 pg (25.0-34.0); Mean Corpuscular Hgb Conc 34.5 g/dL (32.0-36.0); Mean Corpuscular Volume 84.9 fL (80.0-100.0); Mean Platelet Volume 9.1 fL (9.4-12.4); Monocytes # (auto) 0.49 K/uL (0.11-0.59); Monocytes % (auto) 10.7 %; Neutrophils # (auto) 2.75 K/uL (1.40-6.50); Neutrophils % (auto) 60.2 %; Platelet Count 142 K/uL (130-400); RDW Coefficient of Variation 14.5 % (11.5-14.5); RDW Standard Deviation 44.7 fL (36.4-46.3); Red Blood Count 2.59 M/uL (4.20-5.40); White Blood Count 4.57 K/ul (4.8-10.8)
[2024-03-26 07:42] LABS: BUN Creatinine Ratio 15.6 (10-20); Calcium 7.8 mg/dl (8.6-10.3); Est GFR (African American) 71.4 ml/min; Est GFR (Non-African American) 61.6 ml/min; Potassium 3.4 mmol/L (3.5-5.1)
[2024-03-26 08:05] LABS: RBC Morphology Unremarkable
[2024-03-26] MEDS: LOSARTAN POTASSIUM 50 MG TAB PO ONE (11:39)
--- NOTE | 2024-03-26 17:03 | Discharge Summary ---
Discharge Summary Date of Service March 26, 2024 Notes For Next Care Provider Patient mated with diarrhea and C. difficile treatment nontoxic given her symptoms and excoriation of her perineal area she was started on vancomycin her symptoms improved greatly. She does have episodes of hypoglycemia her basal insulin was reduced while she was in the hospital No other sources of infection were identified patient was discharged in the care of her . Admission HPI Per Admitting Provider Carol is a 68-year-old female with PMH of T2DM, HHS, RBBB, diabetic neuropathy, sepsis, DKA, unresponsive state, complicated UTIs, and encephalopathy. She presented for fever, cough, diarrhea, and lethargy that began on 03/23. Patient also sustained a ground-level fall on the morning of 03/24. Recent [place] admission from 03/05 - 03/18 for urosepsis. She has had no recurrence of burning with urination or urinary symptoms since leaving the hospital. Patient reports that her diarrhea started yesterday, and she has not taken any additional medications for that with fever. No recent change in diet. No blood in her stool or urine. Patient fell this morning and struck her right shoulder and leg. No head strike. No LOC. No tripping/dizziness. She reports that her legs just gave out on her. She has had 1 prior fall in the past, and does not use ambulatory assist devices. Patient reports that she took all of her regular morning medications including her insulin; no recent change in medications. Patient denies smoking, alcohol use, and tobacco use. Patient is hypertensive at 142/78 and febrile at 37.6 C at time of admission. ED course: Rocephin 2000 mg IV Zofran 4 mg IV Magnesium sulfate 1 g ROS: Patient endorses fever, chills, sinus pressure, dry cough, blurry vision, lightheadedness, headache, diarrhea, and neuropathy in her feet. Patient denies night sweats, dizziness, chest pain, chest pressure, shortness of breath, pleuritic CP, hemoptysis, abdominal pain, N/B, blood in her stool/diar juan, blood in her urine, burning with urination, or dysuria. Principal Dx & Hospital Course #1 = Principal Diagnosis (1) Diarrhea: Fever and diarrhea began the evening of 03/23, no leukocytosis Rocephin 2000 mg IV stopped urine is negative respiratory biofire negative Viral stool panel ordered, unrevealing with exception of C. difficile gene positive toxin negative will use vancomycin p.o. will complete a week blood cultures negative (2) ONEIL (acute kidney injury): Resolved mild; BUN 25, creatinine 1.23 (baseline 0.96), and EGFR 45.7 on arrival Avoid nephrotoxic agents where possible Resume losartan Hypokalemia replete Hypomagnesemia replete pt has anemia, worse than DC likely some chronic disease component iron level is normal iron/iron binding capacity is also normal Recommend follow-up of anemia this is likely anemia of chronic disease and may be beneficial to talk to the nephrology regarding this (3) Elevated troponin: Troponin 34->35 on arrival no acs suspected, maybe demand ischemia from illness or from oneil (4) Type 2 diabetes mellitus, uncontrolled: Last A1c at 15.9% on 03/2024 Resume metformin Mounjaro reduce basal insulin Tresiba to 15 units daily (5) Paroxysmal atrial fibrillation: Continue Eliquis, no signs of melena encouraged surveillance regarding this (6) Fall: Fall on 03/23 Head, cervical spine,and right shoulder imaging without acute abnormalities Fall precautions Plan DNR/DNI Discharge Exam Patient awake alert appropriate. Cardiac symptoms regular lungs are clear. Updated Medication List Medication Instructions Recorded Confirmed Type ascorbic acid (vitamin C) 250 mg 250 mg PO DAILY 12/14/19 03/24/24 History tablet lancets 33 gauge (OneTouch Delica #100 ea 05/28/23 03/24/24 Rx Plus Lancet) pen needle, diabetic 32 gauge x #100 ea 05/28/23 03/24/24 Rx 32" (BD Ultra-Fine Snow Pen Needle) metformin 500 mg tablet 500 mg PO BIDWMEAL 07/30/23 03/24/24 History sertraline 50 mg tablet 50 mg PO DAILY #30 tabs 08/13/23 03/24/24 Rx tirzepatide 2.5 mg/0.5 mL 2.5 mg subcut WK 03/05/24 03/24/24 History subcutaneous pen injector (Mounjaro) amlodipine 5 mg tablet (Norvasc) 5 mg PO QAM #30 tabs 03/18/24 03/24/24 Rx apixaban 5 mg tablet (Eliquis) 5 mg PO BID #60 tabs 03/18/24 03/24/24 Rx aspirin 81 mg tablet,delayed 81 mg PO QAM #30 tabs 03/18/24 03/24/24 Rx release atorvastatin 40 mg tablet 40 mg PO QAM #30 tabs 03/18/24 03/24/24 Rx lacosamide 50 mg tablet (Vimpat) 100 mg (2 x 50 mg) PO BID #60 tabs 03/18/24 03/24/24 Rx levetiracetam 250 mg tablet 250 mg PO BID #60 tabs 03/18/24 03/24/24 Rx (Keppra) losartan 100 mg tablet 100 mg PO DAILY #30 tabs 03/18/24 03/24/24 Rx OneTouch Verio test strips (blood #100 ea 03/22/24 03/24/24 Rx sugar diagnostic) blood sugar diagnostic (Accu-Chek #100 ea 03/24/24 Rx Elvira Plus test strips) furosemide 20 mg tablet 20 mg PO UD PRN leg swelling 03/24/24 03/24/24 History insulin degludec 100 unit/mL (3 15 unit (0.15 mL) subcut UD #0 mL 03/26/24 03/24/24 Rx mL) subcutaneous pen (Tresiba FlexTouch U-100 insulin) vancomycin 125 mg capsule 125 mg PO QID 7 days #28 caps 03/26/24 Rx Hospital Stay Data Consultations 03/24/24 14:11 ED Decision to Admit Stat Diagnostic Imagining Performed 03/24/24 11:20 CT cervical spine wo con Stat CT head/brain wo con Stat Pending Results Patient Have Any Pending Studies at Discharge: No Discharge Instructions Given to Patient (Per Discharging Provider) please be sure to keep well hydrated and monitor your home blood sugar we are making some changes to your home medicines to help control your blood sugar Please keep an eye on your blood pressure, control salt intake use desitin or similar cream on buttock skin irritation, wash with gentle soap, dry and apply daily Total Time Total Time Spent Total Time Spent (In Minutes): It required greater than 30 minutes to prepare this patient for discharge. Coding Level of Care Code 13952 INP/OBS DISCH >30 MIN Diagnoses Diarrhea R19.7 ONEIL (acute kidney injury) N17.9 Elevated troponin R79.89 Type 2 diabetes mellitus, uncontrolled E11.65 Paroxysmal atrial fibrillation I48.0 Fall W19.XXXA
== END 2024-03-26 13:17 | disposition home or self-care (01) | DRG 372 ==
LOC: ED 10:27 → 2E 15:11 → SUATTDRO 15:11 → INTOOBSV 15:11 → 2E 22:14

== ENCOUNTER 2024-08-15 09:33 | Inpatient (IN) ==
--- NOTE | 2024-08-15 10:26 | XRay Report ---
SINGLE VIEW CHEST CLINICAL HISTORY: Atypical chest pain. FINDINGS: An AP, portable, upright chest radiograph is compared to study dated 03/24/2014. The cardiom ediastinal silhouette is top normal for projection. Chronic interstitial thickening is similar to pre vious. The lungs and pleural spaces are clear. No pneumothorax is seen. The skeletal structures are o steopenic. The bony thorax is grossly intact. IMPRESSION: No active disease in the chest. ACT 112: Negative or not required by law. Electronically signed by: Pola Ayala M.D. 08/15/2024 10:25 AM
[2024-08-15 10:29] LABS: Basophils # (auto) 0.06 K/uL (0.00-0.20); Basophils % (auto) 0.9 %; Eosinophils # (auto) 0.28 K/uL (0.00-0.50); Eosinophils % (auto) 4.4 %; Hematocrit (blood only) 26.5 % (37.0-47.0); Hemoglobin 9.5 g/dl (12.0-16.0); Immature Granulocytes # (auto) 0.02 K/uL (0.01-0.20); Immature Granulocytes % (auto) 0.3 %; Lymphocytes # (auto) 1.59 K/uL (1.20-3.40); Lymphocytes % (auto) 25.2 %; Mean Corpuscular Hgb Conc 35.8 g/dL (32.0-36.0); Mean Corpuscular Volume 86.6 fL (80.0-100.0); Mean Platelet Volume 9.8 fL (9.4-12.4); Monocytes # (auto) 0.64 K/uL (0.11-0.59); Monocytes % (auto) 10.1 %; Neutrophils # (auto) 3.73 K/uL (1.40-6.50); Neutrophils % (auto) 59.1 %; Platelet Count 175 K/uL (130-400); RDW Standard Deviation 40.8 fL (36.4-46.3); Red Blood Count 3.06 M/uL (4.20-5.40); White Blood Count 6.32 K/ul (4.8-10.8)
[2024-08-15 10:38] LABS: Albumin Globulin Ratio 1.4 (0.9-2); Albumin Level 3.6 gm/dl (3.4-5.0); Bilirubin,Total 1.4 mg/dl (0.2-1.0); Calcium 8.8 mg/dl (8.6-10.3); Creatinine Clr Calc Pharmacy 33.2 ml/min; Globulin 2.6 gm/dl (2.5-4.0); Magnesium 2.1 mg/dl (1.7-2.4); Phosphorus 4.1 mg/dl (2.5-4.9); Potassium 3.8 mmol/L (3.5-5.1); Total Protein 6.2 gm/dl (6.0-8.3)
[2024-08-15 10:44] LABS: Troponin I High Sensitivity 15.3 pg/ml (0-14)
[2024-08-15 10:56] LABS: INR 0.9 (0.9-1.1); Prothrombin Time 10.1 Seconds (9.0-12.0)
--- NOTE | 2024-08-15 11:43 | Emergency Department Note ---
Impression & Plan Hypertensive urgency ED Provider Note NAME: JEANNE WOODRUFF AGE: 69 SEX: F : 1955 ARRIVES VIA: Walk-In INFORMANT: Patient ED PROVIDER(S): Toni Mensah MD CHIEF COMPLAINT: PLAN: Disposition: MEDICAL DECISION MAKING: Triage Nursing notes reviewed and agree them. Prior/external medical records reviewed Vital Signs: reviewed Differential diagnosis: .dd ER treatment provided: See below. Diagnostics interpreted by me: ECG: None Cardiac Monitoring: An order for continuous cardiac monitoring was placed and demonstrated Laboratory studies: See below Imaging studies: See below Consultation(s): None HPI: ROS: See above HPI for pertinent positives & negatives. A total of 10 systems reviewed and were otherwise negative. VITALS:See Below PHYSICAL EXAMINATION: ED COURSE: Times/Reassessments: Procedures: None PDMP: Reviewed and no issues Critical Care: None Toni Mensah MD Past Med/Surg History Problem List (Updated 08/15/24 @ 16:27 by Toni Mensah MD) Hypertensive urgency (Acute) Asymptomatic hypertensive urgency Hypertensive emergency Proteinuria Type 2 diabetes mellitus, uncontrolled Hypokalemia Diarrhea Fall Hypomagnesemia (Acute) Acute UTI (Acute) Weakness (Acute) Homonymous hemianopsia Acute UTI (Acute) Encephalopathy (Acute) Sepsis (Acute) Mitral regurgitation Prolonged QT interval Paroxysmal atrial fibrillation Non-convulsive status epilepticus Pulmonary edema Hyperosmolar hyperglycemic state (HHS) Acute metabolic encephalopathy Severe sepsis Complicated UTI (urinary tract infection) Lactic acidosis HHS (hypothenar hammer syndrome) Elevated troponin ONEIL (acute kidney injury) Unresponsive state DKA (diabetic ketoacidosis) UTI (urinary tract infection) Sepsis Hypertension (Acute) Diabetes mellitus type 2, uncontrolled, with complications Anxiety and depression Neuropathic pain of both feet Edema of both legs Diabetic neuropathy Elevated vitamin B12 level Hyponatremia Type 2 diabetes mellitus with hyperosmolar hyperglycemic state (HHS) (Acute) Chest pain RBBB Type II diabetes mellitus with neurological manifestations, uncontrolled (Chronic) Noncompliance with treatment plan (Acute) Lichen sclerosus et atrophicus (Acute) Medical History Hyperlipidemia Surgical History History of lumbar surgery H/O total hysterectomy Family History Father Diabetes Prostate cancer Grandmother Diabetes Aunt Colorectal cancer Brother Stroke Denies family history of Ovarian cancer Myocardial infarction Breast cancer Social History Smoking Status: Never smoker Second Hand Exposure: No; Do You Dip or Chew Tobacco: No; Hx Alcohol Use: No Hx Substance Use: No Preferred Language: Hebrew Communication Ability: Effective Communication Ability Comment: Patient reports she has trouble seeing Visual Impairment: No Limitations Hearing Ability: Normal Document Control Coordinator Required: No Beliefs That Will Affect Care: None marital status: Current Living Situation: Spouse and Family Current Living Situation Comment: Lives with spouse current occupational status: retired 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 How many Children do You have: 3 Feels Safe at Home: Yes Childhood Exposure to Second-Hand Smoke: No Diet: regular Diet Comment: added more salads to diet. caffeine: Yes (soda 3 x week) during the past year weight has: remained stable Dental Care, Regularly: No Physical Activity Frequency: Does not Exercise Seatbelt Use: always Sunscreen Use: No Do you think of yourself as: straight/heterosexual Gender Identity: Female Assistive Devices: Cane, Walker and Wheelchair Allergies Allergies Allergy/AdvReac Type Severity Reaction Status Date / Time No Known Allergies Allergy Verified 08/08/24 10:52 Home Meds Home Medications Medication Instructions Recorded Confirmed amlodipine 5 mg tablet (Norvasc) 5 mg PO UD 08/15/24 08/15/24 apixaban 5 mg tablet (Eliquis) 5 mg PO UD 08/15/24 08/15/24 atorvastatin 40 mg tablet 40 mg PO UD 08/15/24 08/15/24 furosemide 20 mg tablet 20 mg PO UD 08/15/24 08/15/24 insulin degludec 100 unit/mL (3 14 unit subcut UD 08/15/24 08/15/24 mL) subcutaneous pen (Tresiba FlexTouch U-100 insulin) losartan 100 mg tablet 50 mg PO DAILY 08/15/24 08/15/24 sertraline 50 mg tablet 50 mg PO UD 08/15/24 08/15/24 Previous Rx's Medication Instructions Recorded lancets 33 gauge (OneTouch Delica #100 ea 05/28/23 Plus Lancet) pen needle, diabetic 32 gauge x #100 ea 05/28/23 5/32" (BD Ultra-Fine Snow Pen Needle) aspirin 81 mg tablet,delayed 81 mg PO QAM #30 tabs 03/18/24 release OneTouch Verio test strips (blood #100 ea 03/22/24 sugar diagnostic) blood sugar diagnostic (Accu-Chek #100 ea 03/24/24 Elvira Plus test strips) blood-glucose meter,continuous #1 ea 03/30/24 (Dex[employer] G7 [employer] Settlement Processor) blood-glucose sensor (Dexcom G7 #4 ea 04/25/24 Sensor device) Results & Data (ED) Vital Signs Vital Signs - 24 hr 08/15/24 09:39 08/15/24 09:58 08/15/24 10:00 Temperature 36.3 C L Temperature Source Temporal Artery Scan Pulse Rate 76 Pulse Rate [Apical] 70 Pulse Rate from SpO2 Sensor Respiratory Rate 20 20 Respiratory Effort / Characteristics Non-Labored Spontaneous Respiratory Depth Normal Normal Respiratory Pattern Regular Blood Pressure 224/112 H Blood Pressure [Left Arm] 239/128 H Blood Pressure Mean 149 Blood Pressure Mean [Left Arm] 165 Pulse Oximetry 100 99 99 Oxygen Delivery Method Room Air Room Air Sepsis Recent Fever Within 48 Hours No Sepsis New/Unexplained Change in Mental Status N/A Sepsis Action Taken by Nursing No Action Required 08/15/24 10:18 08/15/24 10:23 08/15/24 10:30 Temperature Temperature Source Pulse Rate 67 69 69 Pulse Rate [Apical] Pulse Rate from SpO2 Sensor 67 69 Respiratory Rate 24 16 Respiratory Effort / Characteristics Respiratory Depth Respiratory Pattern Blood Pressure Blood Pressure [Left Arm] Blood Pressure Mean Blood Pressure Mean [Left Arm] Pulse Oximetry 100 99 Oxygen Delivery Method Sepsis Recent Fever Within 48 Hours Sepsis New/Unexplained Change in Mental Status Sepsis Action Taken by Nursing 08/15/24 10:30 08/15/24 10:30 08/15/24 10:54 Temperature Temperature Source Pulse Rate 67 Pulse Rate [Apical] Pulse Rate from SpO2 Sensor 67 Respiratory Rate 15 Respiratory Effort / Characteristics Respiratory Depth Respiratory Pattern Blood Pressure 229/119 H 229/119 H Blood Pressure [Left Arm] Blood Pressure Mean 178 178 Blood Pressure Mean [Left Arm] Pulse Oximetry 98 Oxygen Delivery Method Sepsis Recent Fever Within 48 Hours Sepsis New/Unexplained Change in Mental Status Sepsis Action Taken by Nursing 08/15/24 11:00 08/15/24 11:30 08/15/24 11:42 Temperature Temperature Source Pulse Rate 65 68 Pulse Rate [Apical] Pulse Rate from SpO2 Sensor 65 68 Respiratory Rate 18 14 Respiratory Effort / Characteristics Respiratory Depth Respiratory Pattern Blood Pressure 230/114 H Blood Pressure [Left Arm] Blood Pressure Mean 158 Blood Pressure Mean [Left Arm] Pulse Oximetry 99 99 Oxygen Delivery Method Sepsis Recent Fever Within 48 Hours Sepsis New/Unexplained Change in Mental Status Sepsis Action Taken by Nursing 08/15/24 12:06 08/15/24 12:06 08/15/24 12:09 Temperature Temperature Source Pulse Rate 68 Pulse Rate [Apical] Pulse Rate from SpO2 Sensor 68 Respiratory Rate 12 Respiratory Effort / Characteristics Respiratory Depth Respiratory Pattern Blood Pressure 227/110 H 227/110 H Blood Pressure [Left Arm] Blood Pressure Mean 167 167 Blood Pressure Mean [Left Arm] Pulse Oximetry 99 Oxygen Delivery Method Sepsis Recent Fever Within 48 Hours Sepsis New/Unexplained Change in Mental Status Sepsis Action Taken by Nursing 08/15/24 12:14 08/15/24 12:40 Temperature Temperature Source Pulse Rate 66 Pulse Rate [Apical] 62 Pulse Rate from SpO2 Sensor Respiratory Rate 12 Respiratory Effort / Characteristics Non-Labored Spontaneous Respiratory Depth Normal Respiratory Pattern Blood Pressure 227/110 H Blood Pressure [Left Arm] 202/103 H Blood Pressure Mean Blood Pressure Mean [Left Arm] 136 Pulse Oximetry 98 Oxygen Delivery Method Room Air Sepsis Recent Fever Within 48 Hours Sepsis New/Unexplained Change in Mental Status Sepsis Action Taken by Nursing Laboratory Data 08/15/24 09:54 08/15/24 09:54 Lab Results 08/15/24 08/15/24 08/15/24 Range/Units 09:54 10:05 11:40 WBC 6.32 (4.8-10.8) K/ul RBC 3.06 L (4.20-5.40) M/uL Hgb 9.5 L (12.0-16.0) g/dl Hct 26.5 L (37.0-47.0) % MCV 86.6 (80.0-100.0) fL MCH 31.0 (25.0-34.0) pg MCHC 35.8 (32.0-36.0) g/dL RDW Std Deviation 40.8 (36.4-46.3) fL RDW Coeff of Abel 13.0 (11.5-14.5) % Plt Count 175 (130-400) K/uL MPV 9.8 (9.4-12.4) fL Immature Gran % (Auto) 0.3 % Neut % (Auto) 59.1 % Lymph % (Auto) 25.2 % [place] % (Auto) 10.1 % Eos % (Auto) 4.4 % Baso % (Auto) 0.9 % Neut # (Auto) 3.73 (1.40-6.50) K/uL Lymph # (Auto) 1.59 (1.20-3.40) K/uL [place] # (Auto) 0.64 H (0.11-0.59) K/uL Eos # (Auto) 0.28 (0.00-0.50) K/uL Baso # (Auto) 0.06 (0.00-0.20) K/uL Immature Gran # (Auto) 0.02 (0.01-0.20) K/uL PT 10.1 (9.0-12.0) Seconds INR 0.9 (0.9-1.1) Sodium 138 (136-145) mmol/L Potassium 3.8 (3.5-5.1) mmol/L Chloride 107 (98-107) mmol/L Carbon Dioxide 26 (21-32) mmol/L Anion Gap 5 (3-11) BUN 40 H (6-23) mg/dl Creatinine 1.54 H (0.6-1.2) mg/dl Est Cr Clr Drug Dosing 33.2 ml/min eGFR 36.78 BUN/Creatinine Ratio 26.0 H (10-20) Glucose 122 H (70-99(Fasting)) mg/dl POC Glucose 121 H (70-99) mg/dl Osmolality 301 H (280-300) mOsm/kg Calcium 8.8 (8.6-10.3) mg/dl Phosphorus 4.1 (2.5-4.9) mg/dl Magnesium 2.1 (1.7-2.4) mg/dl Total Bilirubin 1.4 H (0.2-1.0) mg/dl AST 31 (13-39) U/L ALT 35 (7-52) U/L Alkaline Phosphatase 77 (34-104) U/L Troponin I High Sens 15.3 H (0-14) pg/ml Total Protein 6.2 (6.0-8.3) gm/dl Albumin 3.6 (3.4-5.0) gm/dl Globulin 2.6 (2.5-4.0) gm/dl Albumin/Globulin Ratio 1.4 (0.9-2) Lipase 143 H (11-82) U/L Urine Color Yellow Urine Appearance Clear (Clear) Urine pH 6.0 (4.5-7.5) Ur Specific [place] 1.020 (1.000-1.030) Urine Protein 3+ H (Negative) Urine Glucose (UA) Trace H (Negative) Urine Ketones Negative (Negative) Urine Blood Negative (Negative) Urine Nitrite Negative (Negative) Urine Bilirubin Negative (Negative) Urine Urobilinogen Negative (Negative) Ur Leukocyte Esterase Negative (Negative) Urine WBC (Auto) 6-10 H (0-5) /hpf Urine RBC (Auto) 3-5 H (0-2) /hpf U Hyaline Cast (Auto) 3-5 H (0-2) /lpf U Epithel Cells (Auto) 0-2 (0-2) /hpf Urine Bacteria (Auto) None Seen (None Seen) Administered Medications Amlodipine Besylate (Amlodipine Besylate 5 Mg Tab) 5 mg PO DAILY SUMAYA Stop: 09/14/24 14:29 Last Admin: 08/15/24 15:36 Dose: 5 mg Documented By: KTS Atorvastatin Calcium (Atorvastatin 40 Mg Tab) 40 mg PO DAILY SUMAYA Stop: 09/14/24 14:29 Last Admin: 08/15/24 15:36 Dose: 40 mg Documented By: KTS Discontinued Medications Acetaminophen (Acetaminophen 500 Mg Tab) 500 mg PO NOW STA Stop: 08/15/24 12:45 Last Admin: 08/15/24 12:55 Dose: 500 mg Documented By: MMF Amlodipine Besylate (Amlodipine Besylate 5 Mg Tab) 5 mg PO NOW ONE Stop: 08/15/24 12:43 Last Admin: 08/15/24 12:55 Dose: 5 mg Documented By: MMF Labetalol HCl (Labetalol Hcl Iv 5 Mg/Ml 20ml) 10 mg IV NOW STA Stop: 08/15/24 12:08 Last Admin: 08/15/24 12:14 Dose: 10 mg Documented By: NDW Imaging Data Radiologist's Impression: Chest X-Ray 08/15/24 09:51 SINGLE VIEW CHEST CLINICAL HISTORY: Atypical chest pain. FINDINGS: An AP, portable, upright chest radiograph is compared to study dated 03/24/2014. The cardiomediastinal silhouette is top normal for projection. Chronic interstitial thickening is similar to previous. The lungs and pleural spaces are clear. No pneumothorax is seen. The skeletal structures are osteopenic. The bony thorax is grossly intact. IMPRESSION: No active disease in the chest. ACT 112: Negative or not required by law. Electronically signed by: Pola Ayala M.D. 08/15/2024 10:[address] 08/15/24 11:31 CT OF THE HEAD WITHOUT CONTRAST CLINICAL HISTORY: Headache, hypertension COMPARISON STUDY: MRI of the brain March 10, 2024. Head CT March 24, 2024. CT DOSE: 625.8 mGy.cm TECHNIQUE: Helical axial images of the head were obtained without IV contrast. Automated exposure control was utilized for the study. A dose lowering technique was utilized adhering to the principles of ALARA. FINDINGS: No acute intracranial hemorrhage, midline shift or mass effect is present. White matter hypodensities are unchanged and favor small vessel disease. The ventricular system is unremarkable. The basal cisterns are patent. No extra-axial collections are present. There are no findings to suggest acute dural sinus thrombosis or acute territorial infarct. There are no calvarial fractures. Right sphenoid sinus mucosal thickening with secretions is similar to prior exam. IMPRESSION: No acute intracranial findings. ACT 112: Negative or not required by law. Electronically signed by: Roland Swan M.D. 08/15/2024 12:12 PM Discharge Plan Visit Data Chief Complaint: Hypertension Stated Complaint: HIGH BP ED Provider: Toni Mensah Discharge Problem: Hypertensive urgency Patient Disposition: Admitted As Inpatient Discharge Instructions Interventions: ED Discharge Assessment Last Done: 08/15/24 13:52
[2024-08-15] MEDS: LABETALOL HCL IV 5 MG/ML 20ML IV STA (12:14)
--- NOTE | 2024-08-15 12:14 | CT Scan Report ---
CT OF THE HEAD WITHOUT CONTRAST CLINICAL HISTORY: Headache, hypertension COMPARISON STUDY: MRI of the brain March 10, 2024. Head CT March 24, 2024. CT DOSE: 625.8 mGy.cm TECHNIQUE: Helical axial images of the head were obtained without IV contrast. Automated exposure con trol was utilized for the study. A dose lowering technique was utilized adhering to the principles o f ALARA. FINDINGS: No acute intracranial hemorrhage, midline shift or mass effect is present. White matter hyp odensities are unchanged and favor small vessel disease. The ventricular system is unremarkable. The basal cisterns are patent. No extra-axial collections are present. There are no findings to suggest a cute dural sinus thrombosis or acute territorial infarct. There are no calvarial fractures. Right sph enoid sinus mucosal thickening with secretions is similar to prior exam. IMPRESSION: No acute intracranial findings. ACT 112: Negative or not required by law. Electronically signed by: Roland Swan M.D. 08/15/2024 12:12 PM
--- NOTE | 2024-08-15 12:16 | Electrocardiogram Report ---
Test Reason : Blood Pressure : */* mmHG Vent. Rate : 71 BPM Atrial Rate : 71 BPM P-R Int : 124 ms QRS Dur : 78 ms QT Int : 416 ms P-R-T Axes : -1 2 52 degrees QTcB Int : 452 ms Normal sinus rhythm Normal ECG When compared with ECG of 24-Mar-2024 10:49, Right bundle branch block is no longer Present Confirmed by Demetri Lion ([id number]) on 08/15/2024 12:16:23 PM Referred By: REFERRED SELF Confirmed By: Demetri Lion
[2024-08-15 12:29] LABS: Appearance Urine Clear (Clear); Bacteria Urine Automated None Seen (None Seen); Bilirubin Urine Negative (Negative); Blood Urine Negative (Negative); Color Urine Yellow; Epithelial Cell Urine Auto 0-2 /hpf (0-2); Glucose Urine UA Trace (Negative); Ketones Urine Negative (Negative); Leukocyte Esterase Urine Negative (Negative); Nitrite Urine Negative (Negative); Protein Urine 3+ (Negative); Urobilinogen Urine Negative (Negative)
--- NOTE | 2024-08-15 12:32 | History & Physical Report ---
Date of Service August 15, 2024 Assessment & Plan (1) Hypertensive emergency: Plan: Hypertension Patient has some blurry vision at baseline with cataracts, denies acute change. Denies weakness/sensory change. Denies chest pain, chest pressure. Endorses mild headache since being in the ER, and has an elevated troponin and creatinine. Will treat as hypertensive emergency Pending first dose of labetalol at time of admission consultation, CThead without acute findings and no evidence of acute stroke. 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 She was asymptomatic but was unsure of her regimen and compliance was unclear at outpatient visit. Patient was counseled on consequences of both poorly controlled diabetes and hypertension at that time was recommended for 1 month follow-up Given longstanding chronic hypertension recommend decreasing by no more than 20% in the first 24-hour period. Outpatient measurements around 200, current measurements [id number]. SBP goal 190 for first 24 hours, then will decrease to 180 after 24 hours Home amlodipine given. Losartan 100 mg daily temporarily held for ONEIL Labetalol 10 mg IV on-call as needed to meet goal as above (2) ONEIL (acute kidney injury): Plan: Creatinine elevated from normal baseline, 1.54 on admission. Suspect hypertensive versus volume contracted, mucous membranes are dry on admission and serum is hyperosmolar Patient is not tachycardic or hypotensive. In the setting of critical IV fluid shortage oral fluids were pushed. Patient will drink 500 cc of water in the first hour, and then will drink another 500 cc over the next 3 hours Trend BMP daily Hold ALIDA/ARB medications (3) Type 2 diabetes mellitus, uncontrolled: Plan: Type II DM BSG on admission 122 Tirzepatide held while inpatient Continue Lantus 15 units daily, SSI Patient is volume contracted with elevated BUN and hyperosmolar serum. Oral fluids pushed (4) Paroxysmal atrial fibrillation: Plan: Paroxysmal A-fib Continue Eliquis - EKG on admission: Normal sinus rhythm, no territorial ST/T wave changes. Previously noted right bundle block improved. 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 Patient is recommended for review of blood pressure in the . Labetalol x1 ordered, pending administration at time of consultation. CThead pending. Patient reportedly with some blurry vision at baseline for which she was undergoing cataract evaluation prior to being referred to the emergency department. She reports development of a headache since being in the ER 'I have cataracts, I can't really see.' Headache for several days, a little worse in the last hour or two No vision change in the last week or two. Cataracts gradually worsened over many months but denies acute change. 'I see things, just not clearly. Hasn't changed much lately.' No arm or leg weakness No numbness/tingling No nausea/vomting. Currently denies nausea Endorses history of unresponsiveness from poorly controlled blood sugars at home in the past. Denies history of seizures. NO incontienence No fevers or chills. No sweats. No dysuria since being on a medicine for a UTI, took her last antibiotic last night and feels well. No chest pain or chest pressure. She reports she took medicines last night, none this morning. Has not fille done medication lately but is not sure which medicine this is. Last took her insulin shot last night. manages her medicines for her since she cannot see her medicines or pill bottles well. Is seeing an eye doctor for a visual evaluation and is pending cataract surgery Sep 02, but was referred here due to HTN. Medical History: Reviewed Medications: Reviewed Surgical History: Reviewed Family history: Reviewed Allergies: Reviewed Social History: No tobacco use. No etoh use. Code Status: DNR/DNI Allergies Allergy/AdvReac Type Severity Reaction Status Date / Time No Known Allergies Allergy Verified 08/08/24 10:52 Home Medications Medication Instructions Recorded Confirmed Type ascorbic acid (vitamin C) 250 mg 250 mg PO DAILY 12/14/19 08/08/24 History tablet lancets 33 gauge (OneTouch Delica #100 ea 05/28/23 08/08/24 Rx Plus Lancet) pen needle, diabetic 32 gauge x #100 ea 05/28/23 08/08/24 Rx 5/32" (BD Ultra-Fine Snow Pen Needle) aspirin 81 mg tablet,delayed 81 mg PO QAM #30 tabs 03/18/24 08/08/24 Rx release OneTouch Verio test strips (blood #100 ea 03/22/24 08/08/24 Rx sugar diagnostic) blood sugar diagnostic (Accu-Chek #100 ea 03/24/24 08/08/24 Rx Elvira Plus test strips) insulin degludec 100 unit/mL (3 15 unit (0.15 mL) subcut UD #0 mL 03/26/24 08/08/24 Rx mL) subcutaneous pen (Tresiba FlexTouch U-100 insulin) blood-glucose meter,continuous #1 ea 03/30/24 08/08/24 Rx (Dexcom G7 Broadcast Systems Engineer) tirzepatide 5 mg/0.5 mL 5 mg (0.5 mL) subcut ONCE #2 mL 04/13/24 08/08/24 Rx subcutaneous pen injector (Wil[place]unjaro) blood-glucose sensor (Dexcom G7 #4 ea 04/25/24 08/08/24 Rx Sensor device) sertraline 50 mg tablet 50 mg PO DAILY #30 tabs 08/12/24 Rx amlodipine 5 mg tablet (Norvasc) 5 mg PO UD 08/15/24 History apixaban 5 mg tablet (Eliquis) 5 mg PO UD 08/15/24 History atorvastatin 40 mg tablet 40 mg PO UD 08/15/24 History furosemide 20 mg tablet 20 mg PO UD 08/15/24 History losartan 100 mg tablet 100 mg PO UD 08/15/24 History Past Med/Surg History Problem List (Updated 08/15/24 @ 12:52 by Erickson Alonzo MD) Asymptomatic hypertensive urgency Hypertensive emergency Proteinuria Type 2 diabetes mellitus, uncontrolled Hypokalemia Diarrhea Fall Hypomagnesemia (Acute) Acute UTI (Acute) Weakness (Acute) Homonymous hemianopsia Acute UTI (Acute) Encephalopathy (Acute) Sepsis (Acute) Mitral regurgitation Prolonged QT interval Paroxysmal atrial fibrillation Non-convulsive status epilepticus Pulmonary edema Hyperosmolar hyperglycemic state (HHS) Acute metabolic encephalopathy Severe sepsis Complicated UTI (urinary tract infection) Lactic acidosis HHS (hypothenar hammer syndrome) Elevated troponin ONEIL (acute kidney injury) Unresponsive state DKA (diabetic ketoacidosis) UTI (urinary tract infection) Sepsis Hypertension (Acute) Diabetes mellitus type 2, uncontrolled, with complications Anxiety and depression Neuropathic pain of both feet Edema of both legs Diabetic neuropathy Elevated vitamin B12 level Hyponatremia Type 2 diabetes mellitus with hyperosmolar hyperglycemic state (HHS) (Acute) Chest pain RBBB Type II diabetes mellitus with neurological manifestations, uncontrolled (Chronic) Noncompliance with treatment plan (Acute) Lichen sclerosus et atrophicus (Acute) Medical History Hyperlipidemia Surgical History History of lumbar surgery H/O total hysterectomy Family History Father Diabetes Prostate cancer Grandmother Diabetes Aunt Colorectal cancer Brother Stroke Denies family history of Ovarian cancer Myocardial infarction Breast cancer Social History Smoking Status: Never smoker Second Hand Exposure: No; Do You Dip or Chew Tobacco: No; Hx Alcohol Use: No Hx Substance Use: No Preferred Language: Ivorian Communication Ability: Effective Communication Ability Comment: Patient reports she has trouble seeing Visual Impairment: No Limitations Hearing Ability: Normal Cytogenetic Technician Required: No Beliefs That Will Affect Care: None marital status: Current Living Situation: Spouse and Family Current Living Situation Comment: Lives with spouse current occupational status: retired 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 How many Children do You have: 3 Feels Safe at Home: Yes Childhood Exposure to Second-Hand Smoke: No Diet: regular Diet Comment: added more salads to diet. caffeine: Yes (soda 3 x week) during the past year weight has: remained stable Dental Care, Regularly: No Physical Activity Frequency: Does not Exercise Seatbelt Use: always Sunscreen Use: No Do you think of yourself as: straight/heterosexual Gender Identity: Female Assistive Devices: Cane, Walker and Wheelchair Physical Exam Physical Exam: General: A&Ox3. NAD. Cooperative. HEENT: Atraumatic, normocephalic. MM tacky/dry. Pulm: CTAB A&P. -wheezes, -rales, -rhonchi. Symmetrical chest rise. No increased work of breathing. No respiratory distress. Cardiac: RRR, -mrg. Radial pulses intact and symmetrical. Abdominal: Nontender, nondistended, soft. BS present. CRANIAL NERVES: II: Pupils equal and reactive. Diminished acuity at baseline. No field cuts III, IV, : EOM intact, no gaze preference or deviation, no nystagmus. V: normal sensation in V1, V2, and V3 segments bilaterally VII: no asymmetry, no nasolabial fold flattening VIII: normal hearing to speech IX, X: normal palatal elevation, no uvular deviation XI: 5/5 head turn and 5/5 shoulder shrug bilaterally XII: midline tongue protrusion MOTOR: RUE: 5/5 Shoulder internal rotation, external rotation, flexion, extension, abduction, adduction 5/5 Elbow flexion/extension, wrist flexi on/extension 5/5 rubber tire curer strength LUE: 5/5 Shoulder internal rotation, external rotation, flexion, extension, abduction, adduction 5/5 Elbow flexion/extension, wrist flexi on/extension 5/5 rubber tire curer strength RLE: 5/5 to hip flexionn, ankle dorsiflexion/ plantarflexion LLE: 5/5 to hip flexion, ankle dorsiflexion/p lantarflexion SENSORY: Normal to touch in upper and lower extremities without deficit or asymmetry Results & Data Results & Data Vital Signs (Past 12 Hours) Vital Signs Temp Pulse Pulse Resp BP BP Pulse Ox 08/15/24 12:14 66 227/110 H 08/15/24 12:09 68 12 99 08/15/24 12:06 227/110 H 08/15/24 12:06 227/110 H 08/15/24 11:42 68 14 99 08/15/24 11:30 65 18 99 08/15/24 11:00 230/114 H 08/15/24 10:54 67 15 98 08/15/24 10:30 229/119 H 08/15/24 10:30 229/119 H 08/15/24 10:30 69 16 99 08/15/24 10:23 69 08/15/24 10:18 67 24 100 08/15/24 10:00 70 20 239/128 H 99 08/15/24 09:58 99 08/15/24 09:39 36.3 C L 76 20 224/112 H 100 O2 Del Method 08/15/24 12:14 08/15/24 12:09 08/15/24 12:06 08/15/24 12:06 08/15/24 11:42 08/15/24 11:30 08/15/24 11:00 08/15/24 10:54 08/15/24 10:30 08/15/24 10:30 08/15/24 10:30 08/15/24 10:23 08/15/24 10:18 08/15/24 10:00 08/15/24 09:58 Room Air 08/15/24 09:39 Room Air PG Care Time/CCT Total # of Minutes Spent Total Time Spent with Patient: Total time spent is greater than 50% in coordination of care (as documented) at patient's floor/unit and/or counseling patient: Coding Level of Care Code 29560 INT INP/OBS CARE 3/75MIN Diagnoses Hypertensive emergency I16.1 ONEIL (acute kidney injury) N17.9 Type 2 diabetes mellitus, uncontrolled E11.65 Paroxysmal atrial fibrillation I48.0 UTI (urinary tract infection) N39.0
[2024-08-15] MEDS: ACETAMINOPHEN 500 MG TAB PO STA (12:55)
[2024-08-15] MEDS: amLODIPine BESYLATE 5 MG TAB PO ONE (12:55)
[2024-08-15] MEDS ORDERED: GLUCOSE 40% GEL 15 GM TUBE PO PRN (14:13)
[2024-08-15] MEDS ORDERED: LABETALOL HCL IV 5 MG/ML 20ML IV PRN (14:13)
[2024-08-15] MEDS ORDERED: ONDANSETRON INJ 2 MG/ML 2 ML VIAL IV PRN (14:13)
[2024-08-15] MEDS ORDERED: GLUCOSE 10 TAB/TUBE PO PRN (14:13)
[2024-08-15] MEDS ORDERED: CARBOHYDRATES FOR HYPOGLYCEMIA PO PRN (14:13)
[2024-08-15] MEDS ORDERED: DEXTROSE 50% 50 ML SYRINGE IV PRN (14:13)
[2024-08-15] MEDS ORDERED: GLUCAGON FOR INJ 1 MG VIAL SQ PRN (14:13)
[2024-08-15] MEDS: ATORVASTATIN 40 MG TAB PO SCH (15:36)
[2024-08-15] MEDS: amLODIPine BESYLATE 5 MG TAB PO SCH (15:36)
[2024-08-15] MEDS: hydrALAZINE HCL 25 MG TAB PO STA (16:37)
--- NOTE | 2024-08-15 16:49 | Emergency Department Note ---
Impression & Plan Hypertensive emergency, Elevated troponin, Renal insufficiency ED Provider Note NAME: JEANNE WOODRUFF AGE: 69 SEX: F : 1955 ARRIVES VIA: Walk-In INFORMANT: Patient ED PROVIDER(S): Toni Mensah MD CHIEF COMPLAINT: Hypertension, referred. PLAN: Disposition: Admit MEDICAL DECISION MAKING: The patient is a pleasant 69 woman with a past medical history of hypertension, diabetes, hyponatremia, noncompliance with treatment plan who presents to the emergency department via walk-in accompanied by her for evaluation of elevated blood pressure which was noticed at her ophthalmology appointment today which was for the purpose of preop evaluation for planned cataract surgery in approximately 2 weeks. The patient reports that she was surprised her blood pressure was so high but admits she does not check this regularly. Review of prior records shows the patient has had elevated blood pressure since her hospitalization in March when she had HHS. Of note, the patient was seen by her primary care doctor a week ago and was treated for urinary tract infection her blood pressure was similarly elevated in the 200/100s but was attributed to her urinary tract infection and her report of having an argument with a family member at the time. However, her blood pressure is similarly elevated today in the 200s/100s. Patient denies any acute symptoms. She reports she has had ongoing frontal headache for several months and has had blurred vision for 6 months or more which she has attributed to her cataracts. She further adds that she has chronic ambulatory imbalance and uses a cane but over the past week has felt better and has not needed the cane. She denies any trouble with speech. She denies any extremity weakness. The patient and her report that she did have a mechanical fall a month ago where she hit her head but did not lose consciousness and did not seek medical evaluation at the time. On evaluation the patient is in no acute distress, afebrile with blood pressure in the 220/110s and vital signs otherwise stable. She appears euvolemic to dry. She has no focal neurologic deficits. She has subtle residual resolving ecchymosis from her reported fall a month ago. EKG without overt acute ischemia. CXR negative for acute cardiopulmonary process per my personal preliminary review/interpretation. WBC and platelets within limits. H/H similar to an improved from prior. Chemistry without metabolic acidosis. Creatinine is 1.5 similar to prior range values. Osmolality is slightly high normal at 301. Electrolytes without significant abnormality. LFTs are unremarkable. Initial high-sensitivity troponin 15.3 with delta high stable troponin 14.3, both marginally above normal and nonspecific. Lipase is 143, nonspecific. UA with WBCs but no bacteria and negative nitrites. Patient reports resolution of her urinary symptoms from last week following antibiotics. CT of the head was performed and was negative for ICH or ischemia per my preliminary independent interpretation. Given persistence of patient's significantly elevated blood pressure we did agree with plan for admission for further management. Treatment initiated with IV labetalol. Case was [place] [facility] [place] who will evaluate the patient for admission. BP with subsequent reasonable effect/ >20% reduction in MAPs Further management per admitting team. Triage Nursing notes reviewed and agree them. Prior/external medical records reviewed Vital Signs: reviewed Differential diagnosis: Infection, dehydration, metabolic abnormality, hypo/hyperglycemia, electrolyte disturbance, anemia, hypoxia, cardiac sources, intracerebral event, toxicologic, neurologic, as well as other pathologies. ER treatment provided: See below. Diagnostics interpreted by me: ECG: Normal sinus rhythm, 71 bpm, no ectopy, no overt ST elevation or depression, QTc 452, QRS 78. Cardiac Monitoring: An order for continuous cardiac monitoring was placed and demonstrated ormal sinus rhythm, 71 bpm, no ectopy. Laboratory studies: See below Imaging studies: See below Consultation(s): Case was discussed with Dr. Alonzo, [facility] [place], who will evaluate the patient for admission. HPI: The patient is a pleasant 69 woman with a past medical history of hypertension, diabetes, hyponatremia, noncompliance with treatment plan who presents to the emergency department via walk-in accompanied by her for evaluation of elevated blood pressure which was noticed at her ophthalmology appointment today which was for the purpose of preop evaluation for planned cataract surgery in approximately 2 weeks. The patient reports that she was surprised her blood pressure was so high but admits she does not check this regularly. Review of prior records shows the patient has had elevated blood pressure since her hospitalization in March when she had HHS. Of note, the patient was seen by her primary care doctor a week ago and was treated for urinary tract infection her blood pressure was similarly elevated in the 200/100s but was attributed to her urinary tract infection and her report of having an argument with a family member at the time. However, her blood pressure is similarly elevated today in the 200s/100s. Patient denies any acute symptoms. She reports she has had ongoing frontal headache for several months and has had blurred vision for 6 months or more which she has attributed to her cataracts. She further adds that she has chronic ambulatory imbalance and uses a cane but over the past week has felt better and has not needed the cane. She denies any trouble with speech. She denies any extremity weakness. The patient and her report that she did have a mechanical fall a month ago where she hit her head but did not lose consciousness and did not seek medical evaluation at the time. ROS: See above HPI for pertinent positives & negatives. A total of 10 systems reviewed and were otherwise negative. VITALS:See Below PHYSICAL EXAMINATION: GENERAL: Awake, alert, well-appearing, in no distress HENT: Normocephalic, atraumatic. Oropharynx unremarkable. EYES: Normal conjunctiva. Sclera non-icteric. Pupils dilated bilaterally from recent ophthalmologic exam. NECK: Supple. No nuchal rigidity. FROM. No JVD. RESPIRATORY: Clear to auscultation. CARDIAC: Regular rate, normal rhythm. Extremities warm and well perfused. Pulses equal. ABDOMEN: Soft, non-distended. No tenderness to palpation. No rebound or guarding. No masses. MUSCULOSKELETAL: Chest examination reveals no tenderness. The back is symmetrical on inspection without obvious abnormality. There is no CVA tenderness to palpation. No joint edema. LOWER EXTREMITIES: Calves are equal size bilaterally and non-tender. No edema. No discoloration. NEURO: Normal sensorium. No sensory or motor deficits noted. SKIN: No rash or jaundice noted. Toni Mensah MD Past Med/Surg History Problem List (Updated 08/15/24 @ 19:03 by Toni Mensah MD) Renal insufficiency (Acute) Elevated troponin (Acute) Asymptomatic hypertensive urgency Hypertensive emergency (Acute) Proteinuria Type 2 diabetes mellitus, uncontrolled Hypokalemia Diarrhea Fall Hypomagnesemia (Acute) Acute UTI (Acute) Weakness (Acute) Homonymous hemianopsia Acute UTI (Acute) Encephalopathy (Acute) Sepsis (Acute) Mitral regurgitation Prolonged QT interval Paroxysmal atrial fibrillation Non-convulsive status epilepticus Pulmonary edema Hyperosmolar hyperglycemic state (HHS) Acute metabolic encephalopathy Severe sepsis Complicated UTI (urinary tract infection) Lactic acidosis HHS (hypothenar hammer syndrome) Elevated troponin ONEIL (acute kidney injury) Unresponsive state DKA (diabetic ketoacidosis) UTI (urinary tract infection) Sepsis Hypertension (Acute) Diabetes mellitus type 2, uncontrolled, with complications Anxiety and depression Neuropathic pain of both feet Edema of both legs Diabetic neuropathy Elevated vitamin B12 level Hyponatremia Type 2 diabetes mellitus with hyperosmolar hyperglycemic state (HHS) (Acute) Chest pain RBBB Type II diabetes mellitus with neurological manifestations, uncontrolled (Chronic) Noncompliance with treatment plan (Acute) Lichen sclerosus et atrophicus (Acute) Medical History Hyperlipidemia Surgical History History of lumbar surgery L4-L5 H/O total hysterectomy Family History Father Diabetes Prostate cancer Grandmother Diabetes Aunt Colorectal cancer Brother Stroke Denies family history of Ovarian cancer Myocardial infarction Breast cancer Social History Smoking Status: Never smoker Second Hand Exposure: No; Do You Dip or Chew Tobacco: No; Hx Alcohol Use: No Hx Substance Use: No Preferred Language: [place]al[place] Communication Ability: Effective Communication Ability Comment: Patient reports she has trouble seeing Visual Impairment: No Limitations Hearing Ability: Normal Chicken Picker Required: No Beliefs That Will Affect Care: None marital status: Current Living Situation: Spouse and Family Current Living Situation Comment: Lives with spouse current occupational status: retired 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 How many Children do You have: 3 Feels Safe at Home: Yes Childhood Exposure to Second-Hand Smoke: No Diet: regular Diet Comment: added more salads to diet. caffeine: Yes (soda 3 x week) during the past year weight has: remained stable Dental Care, Regularly: No Physical Activity Frequency: Does not Exercise Seatbelt Use: always Sunscreen Use: No Do you think of yourself as: straight/heterosexual Gender Identity: Female Assistive Devices: Cane, Walker and Wheelchair Allergies Allergies Allergy/AdvReac Type Severity Reaction Status Date / Time No Known Allergies Allergy Verified 08/08/24 10:52 Home Meds Home Medications Medication Instructions Recorded Confirmed amlodipine 5 mg tablet (Norvasc) 5 mg PO UD 08/15/24 08/15/24 apixaban 5 mg tablet (Eliquis) 5 mg PO UD 08/15/24 08/15/24 atorvastatin 40 mg tablet 40 mg PO UD 08/15/24 08/15/24 furosemide 20 mg tablet 20 mg PO UD 08/15/24 08/15/24 insulin degludec 100 unit/mL (3 14 unit subcut UD 08/15/24 08/15/24 mL) subcutaneous pen (Tresiba FlexTouch U-100 insulin) losartan 100 mg tablet 50 mg PO DAILY 08/15/24 08/15/24 sertraline 50 mg tablet 50 mg PO UD 08/15/24 08/15/24 Previous Rx's Medication Instructions Recorded lancets 33 gauge (OneTouch Delica #100 ea 05/28/23 Plus Lancet) pen needle, diabetic 32 gauge x #100 ea 05/28/23 5/32" (BD Ultra-Fine Snow Pen Needle) aspirin 81 mg tablet,delayed 81 mg PO QAM #30 tabs 03/18/24 release OneTouch Verio test strips (blood #100 ea 03/22/24 sugar diagnostic) blood sugar diagnostic (Accu-Chek #100 ea 03/24/24 Elvira Plus test strips) blood-glucose meter,continuous #1 ea 03/30/24 (Dexcom G7 Foundation Digger) blood-glucose sensor (Dexcom G7 #4 ea 04/25/24 Sensor device) Results & Data (ED) Vital Signs Vital Signs - 24 hr 08/15/24 09:39 08/15/24 09:58 08/15/24 10:00 Temperature 36.3 C L Temperature Source Temporal Artery Scan Pulse Rate 76 Pulse Rate [Apical] 70 Pulse Rate from SpO2 Sensor Respiratory Rate 20 20 Respiratory Effort / Characteristics Non-Labored Spontaneous Respiratory Depth Normal Normal Respiratory Pattern Regular Blood Pressure 224/112 H Blood Pressure [Left Arm] 239/128 H Blood Pressure Mean 149 Blood Pressure Mean [Left Arm] 165 Pulse Oximetry 100 99 99 Oxygen Delivery Method Room Air Room Air Sepsis Recent Fever Within 48 Hours No Sepsis New/Unexplained Change in Mental Status N/A Sepsis Action Taken by Nursing No Action Required 08/15/24 10:18 08/15/24 10:23 08/15/24 10:30 Temperature Temperature Source Pulse Rate 67 69 69 Pulse Rate [Apical] Pulse Rate from SpO2 Sensor 67 69 Respiratory Rate 24 16 Respiratory Effort / Characteristics Respiratory Depth Respiratory Pattern Blood Pressure Blood Pressure [Left Arm] Blood Pressure Mean Blood Pressure Mean [Left Arm] Pulse Oximetry 100 99 Oxygen Delivery Method Sepsis Recent Fever Within 48 Hours Sepsis New/Unexplained Change in Mental Status Sepsis Action Taken by Nursing 08/15/24 10:30 08/15/24 10:30 08/15/24 10:54 Temperature Temperature Source Pulse Rate 67 Pulse Rate [Apical] Pulse Rate from SpO2 Sensor 67 Respiratory Rate 15 Respiratory Effort / Characteristics Respiratory Depth Respiratory Pattern Blood Pressure 229/119 H 229/119 H Blood Pressure [Left Arm] Blood Pressure Mean 178 178 Blood Pressure Mean [Left Arm] Pulse Oximetry 98 Oxygen Delivery Method Sepsis Recent Fever Within 48 Hours Sepsis New/Unexplained Change in Mental Status Sepsis Action Taken by Nursing 08/15/24 11:00 08/15/24 11:30 08/15/24 11:42 Temperature Temperature Source Pulse Rate 65 68 Pulse Rate [Apical] Pulse Rate from SpO2 Sensor 65 68 Respiratory Rate 18 14 Respiratory Effort / Characteristics Respiratory Depth Respiratory Pattern Blood Pressure 230/114 H Blood Pressure [Left Arm] Blood Pressure Mean 158 Blood Pressure Mean [Left Arm] Pulse Oximetry 99 99 Oxygen Delivery Method Sepsis Recent Fever Within 48 Hours Sepsis New/Unexplained Change in Mental Status Sepsis Action Taken by Nursing 08/15/24 12:06 08/15/24 12:06 08/15/24 12:09 Temperature Temperature Source Pulse Rate 68 Pulse Rate [Apical] Pulse Rate from SpO2 Sensor 68 Respiratory Rate 12 Respiratory Effort / Characteristics Respiratory Depth Respiratory Pattern Blood Pressure 227/110 H 227/110 H Blood Pressure [Left Arm] Blood Pressure Mean 167 167 Blood Pressure Mean [Left Arm] Pulse Oximetry 99 Oxygen Delivery Method Sepsis Recent Fever Within 48 Hours Sepsis New/Unexplained Change in Mental Status Sepsis Action Taken by Nursing 08/15/24 12:14 08/15/24 12:40 Temperature Temperature Source Pulse Rate 66 Pulse Rate [Apical] 62 Pulse Rate from SpO2 Sensor Respiratory Rate 12 Respiratory Effort / Characteristics Non-Labored Spontaneous Respiratory Depth Normal Respiratory Pattern Blood Pressure 227/110 H Blood Pressure [Left Arm] 202/103 H Blood Pressure Mean Blood Pressure Mean [Left Arm] 136 Pulse Oximetry 98 Oxygen Delivery Method Room Air Sepsis Recent Fever Within 48 Hours Sepsis New/Unexplained Change in Mental Status Sepsis Action Taken by Nursing Laboratory Data Attestation: I reviewed the patient's lab results. 08/15/24 09:54 08/15/24 09:54 Lab Results 08/15/24 08/15/24 08/15/24 Range/Units 09:54 10:05 11:40 WBC 6.32 (4.8-10.8) K/ul RBC 3.06 L (4.20-5.40) M/uL Hgb 9.5 L (12.0-16.0) g/dl Hct 26.5 L (37.0-47.0) % MCV 86.6 (80.0-100.0) fL MCH 31.0 (25.0-34.0) pg MCHC 35.8 (32.0-36.0) g/dL RDW Std Deviation 40.8 (36.4-46.3) fL RDW Coeff of Abel 13.0 (11.5-14.5) % Plt Count 175 (130-400) K/uL MPV 9.8 (9.4-12.4) fL Immature Gran % (Auto) 0.3 % Neut % (Auto) 59.1 % Lymph % (Auto) 25.2 % [place] % (Auto) 10.1 % Eos % (Auto) 4.4 % Baso % (Auto) 0.9 % Neut # (Auto) 3.73 (1.40-6.50) K/uL Lymph # (Auto) 1.59 (1.20-3.40) K/uL [place] # (Auto) 0.64 H (0.11-0.59) K/uL Eos # (Auto) 0.28 (0.00-0.50) K/uL Baso # (Auto) 0.06 (0.00-0.20) K/uL Immature Gran # (Auto) 0.02 (0.01-0.20) K/uL PT 10.1 (9.0-12.0) Seconds INR 0.9 (0.9-1.1) Sodium 138 (136-145) mmol/L Potassium 3.8 (3.5-5.1) mmol/L Chloride 107 (98-107) mmol/L Carbon Dioxide 26 (21-32) mmol/L Anion Gap 5 (3-11) BUN 40 H (6-23) mg/dl Creatinine 1.54 H (0.6-1.2) mg/dl Est Cr Clr Drug Dosing 33.2 ml/min eGFR 36.78 BUN/Creatinine Ratio 26.0 H (10-20) Glucose 122 H (70-99(Fasting)) mg/dl POC Glucose 121 H (70-99) mg/dl Osmolality 301 H (280-300) mOsm/kg Calcium 8.8 (8.6-10.3) mg/dl Phosphorus 4.1 (2.5-4.9) mg/dl Magnesium 2.1 (1.7-2.4) mg/dl Total Bilirubin 1.4 H (0.2-1.0) mg/dl AST 31 (13-39) U/L ALT 35 (7-52) U/L Alkaline Phosphatase 77 (34-104) U/L Troponin I High Sens 15.3 H (0-14) pg/ml Total Protein 6.2 (6.0-8.3) gm/dl Albumin 3.6 (3.4-5.0) gm/dl Globulin 2.6 (2.5-4.0) gm/dl Albumin/Globulin Ratio 1.4 (0.9-2) Lipase 143 H (11-82) U/L Urine Color Yellow Urine Appearance Clear (Clear) Urine pH 6.0 (4.5-7.5) Ur Specific [place] 1.020 (1.000-1.030) Urine Protein 3+ H (Negative) Urine Glucose (UA) Trace H (Negative) Urine Ketones Negative (Negative) Urine Blood Negative (Negative) Urine Nitrite Negative (Negative) Urine Bilirubin Negative (Negative) Urine Urobilinogen Negative (Negative) Ur Leukocyte Esterase Negative (Negative) Urine WBC (Auto) 6-10 H (0-5) /hpf Urine RBC (Auto) 3-5 H (0-2) /hpf U Hyaline Cast (Auto) 3-5 H (0-2) /lpf U Epithel Cells (Auto) 0-2 (0-2) /hpf Urine Bacteria (Auto) None Seen (None Seen) Administered Medications Amlodipine Besylate (Amlodipine Besylate 5 Mg Tab) 5 mg PO DAILY SUMAYA Stop: 09/14/24 14:29 Last Admin: 08/15/24 15:36 Dose: 5 mg Documented By: KTS Atorvastatin Calcium (Atorvastatin 40 Mg Tab) 40 mg PO DAILY SUMAYA Stop: 09/14/24 14:29 Last Admin: 08/15/24 15:36 Dose: 40 mg Documented By: HERMELINDO Insulin Aspart (Insulin Aspart Per Unit Charge) 0 units SC ACHS SUMAYA Stop: 09/14/24 16:29 Last Admin: 08/15/24 17:46 Dose: 2 units Documented By: HERMELINDO Co-signed By: EP Discontinued Medications Acetaminophen (Acetaminophen 500 Mg Tab) 500 mg PO NOW STA Stop: 08/15/24 12:45 Last Admin: 08/15/24 12:55 Dose: 500 mg Documented By: MMF Amlodipine Besylate (Amlodipine Besylate 5 Mg Tab) 5 mg PO NOW ONE Stop: 08/15/24 12:43 Last Admin: 08/15/24 12:55 Dose: 5 mg Documented By: MMF Hydralazine HCl (Hydralazine Hcl 25 Mg Tab) 25 mg PO NOW STA Stop: 08/15/24 15:38 Last Admin: 08/15/24 16:37 Dose: 25 mg Documented By: HERMELINDO Labetalol HCl (Labetalol Hcl Iv 5 Mg/Ml 20ml) 10 mg IV NOW STA Stop: 08/15/24 12:08 Last Admin: 08/15/24 12:14 Dose: 10 mg Documented By: MELQUIADESW Imaging Data Radiologist's Impression: Chest X-Ray 08/15/24 09:51 SINGLE VIEW CHEST CLINICAL HISTORY: Atypical chest pain. FINDINGS: An AP, portable, upright chest radiograph is compared to study dated 03/24/2014. The cardiomediastinal silhouette is top normal for projection. Chronic interstitial thickening is similar to previous. The lungs and pleural spaces are clear. No pneumothorax is seen. The skeletal structures are osteopenic. The bony thorax is grossly intact. IMPRESSION: No active disease in the chest. ACT 112: Negative or not required by law. Electronically signed by: Pola Ayala M.D. 08/15/2024 10:[address] 08/15/24 11:31 CT OF THE HEAD WITHOUT CONTRAST CLINICAL HISTORY: Headache, hypertension COMPARISON STUDY: MRI of the brain March 10, 2024. Head CT March 24, 2024. CT DOSE: 625.8 mGy.cm TECHNIQUE: Helical axial images of the head were obtained without IV contrast. Automated exposure control was utilized for the study. A dose lowering technique was utilized adhering to the principles of ALARA. FINDINGS: No acute intracranial hemorrhage, midline shift or mass effect is present. White matter hypodensities are unchanged and favor small vessel disease. The ventricular system is unremarkable. The basal cisterns are patent. No extra-axial collections are present. There are no findings to suggest acute dural sinus thrombosis or acute territorial infarct. There are no calvarial fractures. Right sphenoid sinus mucosal thickening with secretions is similar to prior exam. IMPRESSION: No acute intracranial findings. ACT 112: Negative or not required by law. Electronically signed by: Roland Swan M.D. 08/15/2024 12:12 PM Discharge Plan Visit Data Chief Complaint: Hypertension Stated Complaint: HIGH BP ED Provider: Toni Mensah Discharge Problem: Hypertensive emergency, Elevated troponin, Renal insufficiency Patient Disposition: Admitted As Inpatient Discharge Instructions Interventions: ED Discharge Assessment Last Done: 08/15/24 13:52
[2024-08-15] MEDS: INSULIN ASPART PER UNIT CHARGE SC SCH (17:46)
[2024-08-15] MEDS: LANTUS PER UNIT CHARGE SQ SCH (22:08)
[2024-08-16 06:24] LABS: Basophils # (auto) 0.05 K/uL (0.00-0.20); Basophils % (auto) 0.9 %; Eosinophils # (auto) 0.29 K/uL (0.00-0.50); Hemoglobin 8.5 g/dl (12.0-16.0); Immature Granulocytes # (auto) 0.02 K/uL (0.01-0.20); Immature Granulocytes % (auto) 0.3 %; Lymphocytes # (auto) 1.41 K/uL (1.20-3.40); Lymphocytes % (auto) 24.5 %; Mean Corpuscular Hemoglobin 30.7 pg (25.0-34.0); Mean Corpuscular Hgb Conc 35.4 g/dL (32.0-36.0); Mean Corpuscular Volume 86.6 fL (80.0-100.0); Mean Platelet Volume 9.5 fL (9.4-12.4); Monocytes % (auto) 8.7 %; Neutrophils # (auto) 3.49 K/uL (1.40-6.50); Neutrophils % (auto) 60.6 %; Platelet Count 157 K/uL (130-400); RDW Standard Deviation 41.1 fL (36.4-46.3); Red Blood Count 2.77 M/uL (4.20-5.40); White Blood Count 5.76 K/ul (4.8-10.8)
[2024-08-16 06:48] LABS: Calcium 8.2 mg/dl (8.6-10.3); Creatinine Clr Calc Pharmacy 26.6 ml/min; Potassium 4.1 mmol/L (3.5-5.1)
[2024-08-16] MEDS: APIXABAN 5 MG TABLET PO SCH (08:56)
[2024-08-16] MEDS: amLODIPine BESYLATE 5 MG TAB PO SCH (08:56)
[2024-08-16] MEDS: ASPIRIN 81 MG ECTAB PO SCH (08:56)
[2024-08-16] MEDS: ASCORBIC ACID 500 MG TAB PO SCH (08:56)
[2024-08-16] MEDS: SERTRALINE HCL 50 MG TABLET PO SCH (08:56)
[2024-08-16] MEDS: hydrALAZINE HCL 25 MG TAB PO SCH (08:57)
[2024-08-16] MEDS: SODIUM CHLORIDE 0.9% 1,000 ML IV SCH (09:01)
--- NOTE | 2024-08-16 11:03 | Hospitalist Progress Note ---
Date of Service August 16, 2024 Assessment & Plan (1) Hypertensive emergency: Plan: Amlodipine has been uptitrated and hydralazine has been added. Losartan discontinued. Renal artery ultrasound ordered and pending to rule out renal artery stenosis which can cause renovascular hypertension. Denies chest pain (2) ONEIL (acute kidney injury): Plan: Creatinine 1.5 on admission and increased further to 1.9 today, August 16. Serum osmolarity is elevated. Now on IV fluids. Monitor intake and output. Serial labs. Losartan has been discontinued (3) Type 2 diabetes mellitus, uncontrolled: Plan: ADA diet. Basal insulin therapy. Sliding scale coverage as needed. (4) Paroxysmal atrial fibrillation: Plan: Currently in normal sinus rhythm. Continue current medical management. Continue Eliquis . Telemetry (5) UTI (urinary tract infection): Plan: Ruled out. No antibiotic therapy indicated at this time Plan Hopeful discharge to home tomorrow, August 17 Admission and Anticipated Discharge Date Admission Date: August 15, 2024 Subjective Alert and oriented. No distress. She understands her changes in medication and the need for renal artery ultrasound to rule out renal artery stenosis which can cause renovascular hypertension. Losartan has been discontinued. Amlodipine has been uptitrated and hydralazine added. Creatinine 1.5 on admission and has risen to 1.9. She is now on IV fluids. Continue to monitor intake and output and serial labs. Review of Systems 2 Review of Systems: Constitutionalno fever or chills ENTno blurred vision, no double vision, no epistaxis, no sore throat Respiratoryno cough, no wheezing, no shortness of breath Cardiacno palpitations, no chest pain, no syncope Emile nausea, vomiting, diarrhea, melena, hematochezia GUno urinary retention, no urinary incontinence, no dysuria, no hematuria Musculoskeletalno joint pain, no muscle tenderness Skinno bruising, no rashes, no pruritus Neurono isolated weakness, no paresthesia, no weakness Psychno depression, no anxiety Physical Exam 2 Physical Exam: General-alert and oriented x3, no fever, no chills HEENT-head atraumatic and normocephalic, pupils equal and reactive to light, extraocular muscles intact Neck-no lymphadenopathy or thyromegaly, trachea midline Chest-clear to auscultation. No rales, wheezing or rhonchi Cardiac-regular rate and rhythm, normal S1 and S2 Abdomen-normal bowel sounds, no hepatosplenomegaly Extremities-no cyanosis, clubbing, or edema Neuro-cranial nerves II through XII intact, motor and sensory function within normal limits, strength symmetrical, no focal deficits Psych-normal affect, normal mood Results & Data Results & Data Vital Signs (Past 12 Hours) Vital Signs Temp Pulse Pulse Resp BP Pulse Ox O2 Del Method 08/16/24 08:07 36.8 C 74 18 174/83 H 99 Room Air 08/16/24 07:00 71 08/16/24 05:51 75 08/16/24 04:02 36.8 C 72 16 158/78 H 98 Room Air Laboratory Results 08/16/24 05:58 08/16/24 05:58 PG Care Time/CCT Total # of Minutes Spent Total Time Spent with Patient: Total time spent is greater than 50% in coordination of care (as documented) at patient's floor/unit and/or counseling patient: Coding Level of Care Code 40677 SUB INP/OBS CARE 3/50MIN Diagnoses Hypertensive emergency I16.1 ONEIL (acute kidney injury) N17.9 Type 2 diabetes mellitus, uncontrolled E11.65 Paroxysmal atrial fibrillation I48.0 UTI (urinary tract infection) N39.0
[2024-08-16] MEDS: ACETAMINOPHEN 325 MG TAB PO PRN (11:22)
--- NOTE | 2024-08-16 13:53 | Ultrasound Report ---
DOPPLER ULTRASOUND OF THE RENAL ARTERIES CLINICAL HISTORY: Hypertensive urgency. COMPARISON STUDY: No priors. TECHNIQUE: Doppler sonography of the renal arteries was performed to assess renal artery stenosis. Im ages are reviewed in the transverse and longitudinal planes. FINDINGS: The kidneys appear normal in size and echotexture. The right kidney measures 11.2 cm in length and th e left kidney measures 12.1 cm in length. There is no hydronephrosis. Trace nonspecific perinephric f luid is seen bilaterally. On the right, intrarenal arterial resistive indices range from 0.49 to 0.81. Intrarenal arterial wave forms are normal with brisk upstrokes. The right renal arterial waveform is normal, and velocities wi thin the right renal artery measure up to 88 cm/sec. The right renal vein is patent. On the left, intrarenal arterial resistive indices range from 0.62 to 0.76. Intrarenal arterial wave forms are normal with brisk upstrokes. The left renal arterial waveform is normal, and velocities wit hin the left renal artery measure up to 81 cm/sec. The left renal vein is patent. The abdominal aorta is patent. Velocities within the abdominal aorta measure up to 111 cm/s. IMPRESSION: There is no sonographic evidence of renal artery stenosis. ACT 112: Negative or not required by law. Electronically signed by: Pola Ayala M.D. 08/16/2024 1:52 PM
[2024-08-17 07:15] LABS: Basophils # (auto) 0.04 K/uL (0.00-0.20); Basophils % (auto) 0.8 %; Eosinophils # (auto) 0.21 K/uL (0.00-0.50); Hematocrit (blood only) 21.6 % (37.0-47.0); Hemoglobin 7.9 g/dl (12.0-16.0); Immature Granulocytes # (auto) 0.03 K/uL (0.01-0.20); Immature Granulocytes % (auto) 0.6 %; Lymphocytes # (auto) 1.23 K/uL (1.20-3.40); Lymphocytes % (auto) 23.5 %; Mean Corpuscular Hemoglobin 31.1 pg (25.0-34.0); Mean Corpuscular Hgb Conc 36.6 g/dL (32.0-36.0); Mean Platelet Volume 9.6 fL (9.4-12.4); Monocytes # (auto) 0.47 K/uL (0.11-0.59); Neutrophils # (auto) 3.25 K/uL (1.40-6.50); Neutrophils % (auto) 62.1 %; Platelet Count 152 K/uL (130-400); RDW Coefficient of Variation 12.9 % (11.5-14.5); RDW Standard Deviation 39.9 fL (36.4-46.3); Red Blood Count 2.54 M/uL (4.20-5.40); White Blood Count 5.23 K/ul (4.8-10.8)
[2024-08-17 07:38] LABS: BUN Creatinine Ratio 26.7 (10-20); Potassium 4.2 mmol/L (3.5-5.1)
[2024-08-17 07:57] LABS: RBC Morphology Unremarkable
[2024-08-17 08:26] VITALS: O2SAT 98
[2024-08-17] MEDS: hydrALAZINE TAB 50 MG TAB PO SCH (09:12)
--- NOTE | 2024-08-17 10:08 | Discharge Summary ---
Discharge Summary Date of Service August 17, 2024 Principal Dx & Hospital Course #1 = Principal Diagnosis (1) Hypertensive emergency: Amlodipine has been uptitrated and hydralazine has been added. Losartan discontinued. Renal artery ultrasound negative for stenosis. This effectively rules out renovascular hypertension. Denies chest pain (2) ONEIL (acute kidney injury): Creatinine 1.5 on admission and increased further to 1.9 and now improving down to 1.7 today, August 17. This will eventually return to baseline. Serum osmolarity was elevated and she was treated with IV fluids. Monitor intake and output. Serial labs. Losartan has been discontinued (3) Type 2 diabetes mellitus, uncontrolled: ADA diet. Basal insulin therapy. Sliding scale coverage as needed. (4) Paroxysmal atrial fibrillation: Currently in normal sinus rhythm. Continue current medical management. Continue Eliquis . Telemetry (5) UTI (urinary tract infection): Ruled out. 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 Patient is recommended for review of blood pressure in the . Labetalol x1 ordered, pending administration at time of consultation. CThead pending. Patient reportedly with some blurry vision at baseline for which she was undergoing cataract evaluation prior to being referred to the emergency department. She reports development of a headache since being in the ER 'I have cataracts, I can't really see.' Headache for several days, a little worse in the last hour or two No vision change in the last week or two. Cataracts gradually worsened over many months but denies acute change. 'I see things, just not clearly. Hasn't changed much lately.' No arm or leg weakness No numbness/tingling No nausea/vomting. Currently denies nausea Endorses history of unresponsiveness from poorly controlled blood sugars at home in the past. Denies history of seizures. NO incontienence No fevers or chills. No sweats. No dysuria since being on a medicine for a UTI, took her last antibiotic last night and feels well. No chest pain or chest pressure. She reports she took medicines last night, none this morning. Has not fille done medication lately but is not sure which medicine this is. Last took her insulin shot last night. manages her medicines for her since she cannot see her medicines or pill bottles well. Is seeing an eye doctor for a visual evaluation and is pending cataract surgery Sep 02, but was referred here due to HTN. Medical History: Reviewed Medications: Reviewed Surgical History: Reviewed Family history: Reviewed Allergies: Reviewed Social History: No tobacco use. No etoh use. Code Status: DNR/DNI Discharge Exam General-alert and oriented x3, no fever, no chills HEENT-head atraumatic and normocephalic, pupils equal and reactive to light, extraocular muscles intact Neck-no lymphadenopathy or thyromegaly, trachea midline Chest-clear to auscultation. No rales, wheezing or rhonchi Cardiac-regular rate and rhythm, normal S1 and S2 Abdomen-normal bowel sounds, no hepatosplenomegaly Extremities-no cyanosis, clubbing, or edema Neuro-cranial nerves II through XII intact, motor and sensory function within no rmal limits, strength symmetrical, no focal deficits Psych-normal affect, normal mood Discharge Plan Discharge Items Patient Disposition: Home - Self-Care Reason For Visit: HYPERTENSIVE EMERGENCY Discharge Diagnosis: Hypertensive emergency, acute kidney injury Activity: Resume your previous activity Non-emergency contact: Primary Care Provider Call non-emergency contact if: you have any medication questions and your symptoms worsen Follow-up/Referrals: Tory Reynolds CRNP [Primary Care Provider] - Diet: Carb Consistent or DM2 and Heart Healthy Addtl Attending Provider Instructions: Hydralazine is new for blood pressure control. Amlodipine dosage has been increased to 10 mg daily. Prescriptions have been sent to the [facility]. Losartan has been discontinued Pending Studies at Discharge: No Stand-Alone Forms: 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 See Rx Instructions .Route Qty: 1 0RF Rx Instructions: As directed (DME) Dexcom G7 Sensor Device See Rx Instructions .Route Qty: 4 5RF Rx Instructions: test 4-5 times a day (DME) lancets [OneTouch Delica Plus Lancet] 33 gauge misc See Rx Instructions .Route Qty: 100 11RF Rx Instructions: test blood sugar 3 x daily (DME) pen needle, diabetic [BD Ultra-Fine Snow Pen Needle] 32 gauge x 32" needle See Rx Instructions .Route Qty: 100 3RF Rx Instructions: use once daily aspirin 81 mg Tablet,Delayed Release (Dr/Ec) 81 mg PO QAM Qty: 30 0RF Rx Instructions: otc atorvastatin 40 mg tablet 40 mg PO UD Rx Instructions: 40 mg po qam last filled 03/18/24. says she's no longer on this medication furosemide 20 mg tablet 20 mg PO UD Rx Instructions: 20 mg po daily filled 04/2024 for 30 day supply. Per , he doesnt think she takes it but isnt real sure. Eliquis 5 mg tablet 5 mg PO UD Rx Instructions: 5 mg po bid last filled 03/18/24. Per the , this is one he thinks they took her off of as well. sertraline 50 mg tablet 50 mg PO UD Rx Instructions: 50 mg po daily Per the he doesnt give her this everyday. He believes there are two mood medications. The zoloft 50 mg and another one but he isn't sure what the other is. insulin degludec [Tresiba FlexTouch U-100] 100 unit/mL (3 mL) insulin pen 14 unit subcut UD Rx Instructions: filled 05/26/24. Per the she does 14 units daily original: 15 units daily Discontinued amlodipine [Norvasc] 5 mg tablet 5 mg PO UD Rx Instructions: 5mg po qam last filled 03/18. isnt sure if this is one they took her off of. losartan 100 mg tablet 50 mg PO DAILY Rx Instructions: Fill history of 05/30: 50 mg po daily Discharge Orders: Discharge Order (Routine); Ordered 08/17/24 Ordered By: Rylan R. Siddhartha Admission Data Admit Date/Time: 08/15/24 13:02 Attending Provider: Rylan Carl Admit Provider: Erickson Alonzo Primary Care Provider: Tory Reynolds Other Providers: Erickson Alonzo Hospital Stay Data Consultations 08/15/24 12:20 ED Decision to Admit Stat Diagnostic Imagining Performed 08/15/24 11:31 CT head/brain wo con Stat 08/16/24 10:29 US duplex renal art/vein BI Urgent Pending Results Patient Have Any Pending Studies at Discharge: No Discharge Instructions Given to Patient (Per Discharging Provider) Hydralazine is new for blood pressure control. Amlodipine dosage has been increased to 10 mg daily. [facility] Total Time Total Time Spent Total Time Spent (In Minutes): 45 minutes Coding Level of Care Code 20448 INP/OBS DISCH >30 MIN Diagnoses Hypertensive emergency I16.1 ONEIL (acute kidney injury) N17.9 Type 2 diabetes mellitus, uncontrolled E11.65 Paroxysmal atrial fibrillation I48.0 UTI (urinary tract infection) N39.0
[2024-08-17 11:01] VITALS: BP 163/80; PULSE 77; RESP 18; TEMP 97.3
== END 2024-08-17 13:20 | disposition home or self-care (01) | DRG 305 ==
LOC: ED 09:33 → SUATTDRO 13:02 → 2S 13:02
DX: E11.40 Type 2 diabetes mellitus with diabetic neuropathy, unspecified; E11.65 Type 2 diabetes mellitus with hyperglycemia; F41.9 Anxiety disorder, unspecified; I48.0 Paroxysmal atrial fibrillation; Z79.82 Long term (current) use of aspirin; Z91.148 Patient's other noncompliance with medication regimen for other reason; N17.9 Acute kidney failure, unspecified; Z79.4 Long term (current) use of insulin; Z79.899 Other long term (current) drug therapy; H26.9 Unspecified cataract; I16.1 Hypertensive emergency; Z66 Do not resuscitate; I10 Essential (primary) hypertension; Z87.440 Personal history of urinary (tract) infections; F32.A Depression, unspecified; Z79.01 Long term (current) use of anticoagulants

== ENCOUNTER 2024-09-22 09:00 | Inpatient (IN) ==
[2024-09-22 10:48] LABS: Basophils # (auto) 0.04 K/uL (0.00-0.20); Basophils % (auto) 0.4 %; Eosinophils % (auto) 1.1 %; Hematocrit (blood only) 22.6 % (37.0-47.0); Hemoglobin 8.1 g/dl (12.0-16.0); Immature Granulocytes # (auto) 0.04 K/uL (0.01-0.20); Immature Granulocytes % (auto) 0.4 %; Lymphocytes # (auto) 1.38 K/uL (1.20-3.40); Mean Corpuscular Hemoglobin 31.4 pg (25.0-34.0); Mean Corpuscular Hgb Conc 35.8 g/dL (32.0-36.0); Mean Corpuscular Volume 87.6 fL (80.0-100.0); Mean Platelet Volume 9.6 fL (9.4-12.4); Monocytes # (auto) 0.86 K/uL (0.11-0.59); Monocytes % (auto) 9.3 %; Neutrophils % (auto) 73.8 %; Platelet Count 157 K/uL (130-400); RDW Coefficient of Variation 14.9 % (11.5-14.5); RDW Standard Deviation 47.8 fL (36.4-46.3); Red Blood Count 2.58 M/uL (4.20-5.40); White Blood Count 9.22 K/ul (4.8-10.8)
[2024-09-22 10:53] LABS: Albumin Globulin Ratio 1.3 (0.9-2); Albumin Level 3.3 gm/dl (3.4-5.0); BUN Creatinine Ratio 17.9 (10-20); Bilirubin,Total 1.7 mg/dl (0.2-1.0); Calcium 8.6 mg/dl (8.6-10.3); Creatinine Clr Calc Pharmacy 24.7 ml/min; Globulin 2.6 gm/dl (2.5-4.0); Total Protein 5.9 gm/dl (6.0-8.3)
[2024-09-22 10:59] LABS: Troponin I High Sensitivity 20.2 pg/ml (0-14)
[2024-09-22 11:11] LABS: C Reactive Protein 1.39 mg/dl (0-0.5)
--- NOTE | 2024-09-22 11:15 | XRay Report ---
XR foot RT min 3V routine HISTORY: 69 years-old Female swollen 1 st digit acute pain and swelling of the right great toe COMPARISON: None TECHNIQUE: 3 views of the right foot FINDINGS: Moderate circumferential soft tissue swelling. Possible soft tissue gas adjacent to lateral malleolus . Arterial calcifications. No acute fracture, dislocation, radiopaque foreign body or acute osseous e rosion identified. IMPRESSION: 1. Soft tissue swelling without acute osseous abnormality. 2. Possible soft tissue gas adjacent to the lateral malleolus. Correlate with physical exam findings. ACT 112: Negative or not required by law. The above report was generated using voice recognition software. It may contain grammatical, syntax o r spelling errors. Electronically signed by: Skip Evans M.D. 09/22/2024 11:14 AM
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
--- NOTE | 2024-09-22 11:37 | XRay Report ---
XR chest 1V portable CLINICAL HISTORY: Chest pain, nonspecific COMPARISON STUDY: Chest radiograph August 15, 2024. Chest CT March 06, 2024. FINDINGS: There is no pneumothorax. Moderate bilateral pleural effusions with associated bibasilar an d perihilar opacities have developed. Interstitial pulmonary edema has also developed. Cardiomediasti nal silhouette is stable. IMPRESSION: Interval development of pulmonary edema with moderate bilateral pleural effusions and as sociated perihilar and bibasilar opacities. ACT 112: Negative or not required by law. Electronically signed by: Roland Swan M.D. 09/22/2024 11:36 AM
[2024-09-22] MEDS: FUROSEMIDE 40 MG/4 ML VIAL IV ONE (12:29)
--- NOTE | 2024-09-22 12:40 | History & Physical Report ---
Date of Service September 22, 2024 Assessment & Plan (1) Acute on chronic heart failure with preserved ejection fraction (HFpEF, >= 50%): Plan: no previous diagnosis of CHF, suspected newly diagnosed CHF at this time - Last echocardiogram 03/2024 showed no systolic dysfunction, EF 60 to 65%. Moderate mitral regurg. - CXR showing pulmonary edema with moderate bilateral pleural effusions - BNP 658 on admission - Heart healthy, low-sodium, fluid restricted diet - diuresis with Lasix 40 IV BID (on 20 mg PO at home) - will ordered echo - Strict I&O monitoring - Daily weights - promote leg elevation, and frequent movement - daily BMP and Mg with diuretic (2) Chest pain: Plan: Patient with chest pain on exertion, associated with dyspnea History of paroxysmal A-fib concern for ischemic cardiomyopathy - Currently chest pain-free - EKG showing NSR - Troponin mildly elevated at 20.2 -> trended the same 20.2 - will continue to trend troponin - EKG prn for chest pain - echo ordered for above - cardiology consulted (3) Hypoxia: Plan: secondary to above - Currently on 3-4 L NC - wean oxygen as tolerated (4) Elevated troponin: Plan: Suspect secondary to demand ischemia from CHF - 20.2 on admission - trend troponin (5) Wound of right foot: Plan: patient has history of diabetic neuropathy 1. blister to 1st metatarsal, rested foot on wood burner 2. lateral malleolus wound, patient unsure of origin Foot XR showing soft tissue swelling without acute osseous abnormality, possible soft tissue gas adjacent to lateral malleolus CRP elevated, 1.39 - pictures uploaded to physical exam - Margins marked - consult wound care - given patient unsure of origin and has cats at home, will cover with Unasyn for now -> eventual transition to Augmentin - if wounds worsen on current antibiotic regimen, can consider Zosyn plus daptomycin (6) Type 2 diabetes mellitus: Plan: Controlled on 14 units Tresiba along with Dexcom at home - Most recent A1C 15.9 in March - Dexcom discontinued on admission; to run out overnight - unable to obtain 24-hour insulin requirement from Dexcom - continue with basal insulin at 14 units - SSI with target BSG range 110-140mg/dL, CF 25, carb ratio 15 - T2DM diet - BSG ACHS if eating, q6h if npo (7) Hypertension: Plan: mildly elevated on admission - Continue home amlodipine and hydralazine (8) Paroxysmal atrial fibrillation: Plan: Patient has not been taking her home Eliquis; was not aware that she had to pick this up at the pharmacy - EKG on admission showed NSR - restarted on Eliquis 5mg BID - possibly send home with pack and have PCP follow-up scheduled for refills - Continue to monitor on Telemetry (9) Anemia: Plan: patient complains of chills and recent weight loss over the past few months appears normochromic normocytic - Hgb 8.1 on admission; chronically low - patient denies bleeding - Will add iron panel, B12, folate a.m. labs Plan Chronic stable diagnoses: depression - continue sertraline VTE ppx: Eliquis Diet: DM, heart healthy, low-sodium, fluid restricted 1500 mL diet Code status: full Dispo: PCU Renal function mildly worsened, although not meeting criteria for ONEIL at this time. Will continue continue to monitor with daily BMP. Likely will improve with diuretic use. Admission and Anticipated Discharge Date Admission Date: 09/22/24 History of Present Illness Chief Complaint: chest pain Primary Care Provider: MARNI Kirk Patient is a 69-year-old female with past medical history of diabetic neuropathy, paroxysmal a fib, hypertension, recurrent UTIs. She presents today due to chest pain, dyspnea, and bilateral lower extremity edema. the patient stated for the past 4 to 5 days she has had dyspnea on exertion along with lower extremity edema. She has chronic LE edema but it has been worse than normal. It normally gets worse throughout the day, has just been worse for the past 5 days. She stated that when she gets up and goes to the bathroom she feels short of breath, she comes back and has chest pain. She stated that the chest pain feels like a heaviness, although only occurs on exertion; it is midsternal. She stated that she has been more sedentary recently, she is concerned about falling before having surgery for her eyes. She has been eating mostly soups for the past few days, they are homemade. She also put her foot near a wood burner yesterday, due to her feet being cold; this has resulted in a blister to her right first toe. She also has a small wound to her right lateral malleolus, she today states she does not know how she got this. She does have a cat at home. Patient stated that she has not been taking her home Eliquis, she did not know she was supposed to fill her's prescription; restarted on admission. She also endorses chills for the past few days, along with weight loss for the past few months. Patient denies fever, headache, dizziness, lightheadedness, sore throat, cough, sputum production, abdominal pain, nausea, vomiting, diarrhea, constipation, dysuria, hematuria. Allergies Allergy/AdvReac Type Severity Reaction Status Date / Time No Known Allergies Allergy Verified 08/24/24 12:50 Home Medications Medication Instructions Recorded Confirmed Type lancets 33 gauge (OneTouch Delica #100 ea 05/28/23 08/24/24 Rx Plus Lancet) aspirin 81 mg tablet,delayed 81 mg PO QAM #30 tabs 03/18/24 09/22/24 Rx release OneTouch Verio test strips (blood #100 ea 03/22/24 08/24/24 Rx sugar diagnostic) blood sugar diagnostic (Accu-Chek #100 ea 03/24/24 08/24/24 Rx Elvira Plus test strips) blood-glucose meter,continuous #1 ea 03/30/24 08/24/24 Rx (Dexcom G7 Insurance Analyst) blood-glucose sensor (Dexcom G7 #4 ea 04/25/24 08/24/24 Rx Sensor device) insulin degludec 100 unit/mL (3 14 unit subcut UD 08/15/24 09/22/24 History mL) subcutaneous pen (Tresiba FlexTouch U-100 insulin) sertraline 50 mg tablet 50 mg PO DAILY 08/15/24 09/22/24 History hydralazine 50 mg tablet 50 mg PO TID #100 tabs 08/17/24 09/22/24 Rx amlodipine 10 mg tablet 10 mg PO DAILY #30 tabs 08/24/24 09/22/24 Rx pen needle, diabetic 32 gauge x #100 ea 09/12/24 Rx 5/32" (BD Ultra-Fine Snow Pen Needle) Past Med/Surg History Problem List (Updated 09/22/24 @ 14:31 by Ani Arias PA-C) Anemia Type 2 diabetes mellitus Chest pain Blister (Acute) Hypoxia (Acute) Elevated troponin (Acute) ONEIL (acute kidney injury) (Acute) CHF (congestive heart failure) (Acute) Hypoxia Elevated troponin Paroxysmal atrial fibrillation ONEIL (acute kidney injury) Wound of right foot Acute on chronic heart failure with preserved ejection fraction (HFpEF, >= 50%) Diabetes mellitus type 2, uncontrolled, with complications Hypertension (Acute) Anxiety and depression Diabetic neuropathy Asymptomatic hypertensive urgency Hypertensive emergency (Acute) Homonymous hemianopsia Encephalopathy (Acute) Mitral regurgitation Neuropathic pain of both feet Edema of both legs Elevated vitamin B12 level Type 2 diabetes mellitus with hyperosmolar hyperglycemic state (HHS) (Acute) RBBB Type II diabetes mellitus with neurological manifestations, uncontrolled (Chronic) Noncompliance with treatment plan (Acute) Lichen sclerosus et atrophicus (Acute) Medical History (Updated 09/22/24 @ 14:31 by Ani Arias PA-C) Bilateral ankle joint pain Type 2 diabetes mellitus, uncontrolled Proteinuria Hypokalemia Diarrhea Fall Hypomagnesemia Acute UTI Weakness Acute UTI Sepsis Prolonged QT interval Non-convulsive status epilepticus Pulmonary edema Hyperosmolar hyperglycemic state (HHS) Acute metabolic encephalopathy Severe sepsis Complicated UTI (urinary tract infection) Lactic acidosis HHS (hypothenar hammer syndrome) Elevated troponin Unresponsive state DKA (diabetic ketoacidosis) Sepsis Hyponatremia Hyperlipidemia Surgical History History of lumbar surgery L4-L5 H/O total hysterectomy Family History Father Diabetes Prostate cancer Grandmother Diabetes Aunt Colorectal cancer Brother Stroke Denies family history of Ovarian cancer Myocardial infarction Breast cancer Social History Smoking Status: Never smoker Tobacco Type: E-cigarettes / Vaping Second Hand Exposure: No; Do You Dip or Chew Tobacco: No; Hx Alcohol Use: No Hx Substance Use: No Preferred Language: Serbian Communication Ability: Effective Communication Ability Comment: Patient reports she has trouble seeing Visual Impairment: No Limitations Hearing Ability: Normal Operations Mgr Required: No Beliefs That Will Affect Care: None marital status: Current Living Situation: Spouse and Family Current Living Situation Comment: Lives with spouse current occupational status: retired 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 How many Children do You have: 3 Feels Safe at Home: Yes Childhood Exposure to Second-Hand Smoke: No Diet: regular Diet Comment: added more salads to diet. caffeine: Yes (soda 3 x week) during the past year weight has: remained stable Dental Care, Regularly: No Physical Activity Frequency: Does not Exercise Seatbelt Use: always Sunscreen Use: No Do you think of yourself as: straight/heterosexual Gender Identity: Female Assistive Devices: Cane, Walker and Wheelchair Review of Systems 2 Review of Systems: see HPI Physical Exam 2 Physical Exam: The patient is awake, alert and oriented 3, well developed and well nourished, normocephalic and atraumatic, in no acute distress. Non-toxic appearing. HEENT- EOMI, mucous membranes moist. Hearing grossly intact. Heart-normal S1 and S2. No murmurs, rubs or gallops. Lungs-clear bilaterally, no respiratory distress, no accessory muscle use. Abdomen-normal bowel sounds and soft. No ascites noted. Non-tender. Extremities- no clubbing, cyanosis. +2 pitting edema BL LE. Wounds to right foot pictured below. Rheumatologic-normal range of motion. Psychiatric-normal affect. Results & Data Results & Data Vital Signs (Past 12 Hours) Vital Signs Temp Pulse Pulse Resp BP BP Pulse Ox 09/22/24 12:25 87 L 09/22/24 12:00 77 18 162/87 H 93 09/22/24 11:26 79 20 09/22/24 11:19 86 L 09/22/24 10:30 84 18 171/95 H 95 09/22/24 09:24 82 09/22/24 09:07 36.8 C 82 22 148/93 H 92 O2 Del Method O2 Flow Rate 09/22/24 12:25 Nasal Cannula 2 09/22/24 12:00 Nasal Cannula 4 09/22/24 11:26 Room Air 09/22/24 11:19 Nasal Cannula 2 09/22/24 10:30 Nasal Cannula 2 09/22/24 09:24 09/22/24 09:07 Room Air Code Status & VTE Plan Code Status full VTE Prophylaxis Plan VTE Prophylaxis will be ordered: Yes Supervising Physician Co-Signing Physician Notes Patient seen and examined, chart reviewed, case discussed with Ani Arias PA-C and I agree with the assessment and plan as above except as otherwise noted Labs and images reviewed Carol is a 69-year-old female with a past medical history of hypertension, type II DM, paroxysmal A-fib who presents to the ER with orthopnea, positional chest discomfort, bilateral leg swelling suspicious for acute on chronic CHF exacerbation. She has been on Lasix in the past although no diagnosed CHF. Last Echo 03/2024: EF 60-65%. Moderate MR. RVSP normal. Patient is reportedly without chest pain at rest however does get some positional pain in bed. EKG sinus without acute territorial ischemic findings. There is slightly poor R wave progression in the anteriolateral leads; on prior EKG review has had variation with lead placement and some poor progression in V3 previously .troponin is 20.2, repeat is pending Updated echo pending due to CHF and to evaluate for wall motion change, EF change, and myopathy. Patient does have a history of paroxysmal A-fib, she is in sinus on ER evaluation. Patient denies a past history of CHF although is on Lasix with a history of some lower extremity swelling. She reports family's been cooking for this week and they use less salt than normal, although notes that they do make soups. She has had exertional chest pain in her low sternum when trying to walk associated with shortness of breath, and she has also had worsening orthopnea over the last week. Chest pain is not rest and she does not have chest discomfort at time of bedside visit. Troponin is mildly elevated with repeat pending. Given significantly worsened CHF with pulmonary edema, agree with diuresis Right foot lateral aspect of the hallux and MCP is with a burn wound and developing blister with surrounding erythema and a blister with some granulation tissue versus mixed purulence and surrounding erythema. Borders marked with marking pen. No leukocytosis but CRP is elevated. Patient also has a cat and unreliable historian is whether she has gotten scratched or not. In addition to her wound on her toe she has a lateral right foot malleoli are screw superficial scratch with some surrounding erythema, also marked with a surgical pen. Given DFI with potential cat scratch exposure will treat with Unasyn on admission with target for Augmentin if needed and trend inflammatory markers/CBC. Agree with above PG Care Time/CCT Total # of Minutes Spent Total Time Spent with Patient: Total time spent is greater than 50% in coordination of care (as documented) at patient's floor/unit and/or counseling patient: Coding Level of Care Code 17567 INT INP/OBS CARE MIN Diagnoses Acute on chronic heart failure with preserved ejection fraction (HFpEF, >= 50%) I50.33 Chest pain R07.9 Hypoxia R09.02 Elevated troponin R79.89 Wound of right foot S91.301A Type 2 diabetes mellitus E11.9 Hypertension I10 Paroxysmal atrial fibrillation I48.0 Anemia D64.9 Anemia type: unspecified type (9) Anemia Anemia type: unspecified type Qualified Code(s): D64.9 - Anemia, unspecified
[2024-09-22] MEDS ORDERED: AMPICILLIN/SULBACTAM SOD 1,500 MG/100 ML BAG IV SCH (14:00)
[2024-09-22] MEDS: AMPICILLIN/SULBACTAM SOD 3,000 MG/100 ML BAG IV SCH (15:03)
--- NOTE | 2024-09-22 15:41 | XCELERA ---
[id number]
--- NOTE | 2024-09-22 15:43 | Cardiology Consultation ---
Date of Consultation September 22, 2024 Assessment & Plan (1) Acute heart failure with mildly reduced ejection fraction (HFmrEF, 41-49%): (2) Exertional angina: (3) Mitral regurgitation: (4) Paroxysmal atrial fibrillation: (5) Anemia: (6) Hypertension: (7) ONEIL (acute kidney injury): (8) Pericardial effusion: (9) Pleural effusion: Plan ASSESSMENT/PLAN: 1. Acute heart failure with mildly reduced EF: She appears hypervolemic. Agree with diuresis. Monitor renal function electrolytes closely. Try to achieve net negative fluid balance of 1 to 2 L in the next 24 hours. Consider ARNI after initial diuresis and monitoring of renal function. Consider SGLT2 inhibitor if no contraindication. Strict I's and O's. Low-sodium diet, less than 2000 mg daily. Daily weights. 2. Angina: Symptoms are concerning for exertional angina. Cannot exclude heart failure as causing her symptoms but she has multiple risk factors for CAD. Discussed ischemic evaluation. Discussed and considered coronary angiography. Discussed increased risk of worsening renal function given current values. She is not sure that she would want to proceed with invasive measures. Could consider noninvasive ischemic evaluation in the future after heart failure improved. We discussed that we would continue to monitor and adjust plan based on her clinical response. Will initiate nitrate therapy. Can initiate beta- jefferson later this hospital stay. Would first like to improve her heart failure. 3. Mitral regurgitation: Nonsevere. Continue to monitor. 4. Cardiomyopathy: LV systolic function is now mildly reduced. Recommend metoprolol succinate or carvedilol after initial diuresis. Consider ARNI depending on renal function. Ischemic evaluation as discussed above. 5. Anemia: As per primary hospitalist service. No obvious bleeding and seems to be a chronic process over the past year. 6. Hypertension: Blood pressure elevated but should improve with some diuresis and further adjustment for her heart failure. 7. Acute kidney injury: As per primary hospitalist service. Has been seen by nephrology in the past. 8. Paroxysmal atrial fibrillation: Apparently did not tolerate this in the past while septic and with hyperosmolar hyperglycemic state. Unclear if she has had any further episodes. When less ill, cannot exclude that she could have asymptomatic episodes. Elevated [id number] or given heart failure, hypertension, diabetes, and prior stroke. Can resume anticoagulation therapy if no contraindication. Plan to initiate beta-jefferson as above, likely tomorrow. 9. Pericardial effusion: Small end of of no hemodynamic significance. Can monitor with repeat imaging in the future. 10. Pleural effusions: Hopefully will improve with some diuresis. If continues to feel short of breath despite adequate diuresis, could consider thoracentesis if possible. Reassess later this hospital stay. 11. Disposition: Cardiology will continue to follow. Patient care communicated with ordering provider, Ani Arias PA-C. Highly complex medical issues. Thank you for allowing me to participate in the care of your patient. Please call for any other questions or concerns. Sincerely, Chon Muñoz M.D. History of Present Illness Reason for Consultation: "Dyspnea, angina" Requesting Physician: Ani Arias PA-C Attending Physician: Erickson Alonzo MD History of Present Illness Mrs. Cavazos is a very pleasant 69-year-old female with a history significant for hypertension, dyslipidemia, paroxysmal atrial fibrillation, stroke, and type 2 diabetes. She was admitted earlier today after presenting with worsening shortness of breath. For the past 5 days or so, she has had increasing shortness of breath, specifically on exertion. She is short of breath even walking from room to room. She also has had increased edema. She has chronic lower extremity edema but it has significantly worsened over the past 5 to 6 days. She is not sure if she has orthopnea as she has been staying at her sister's house for the past week and has been sleeping in a recliner. She also notes substernal chest tightness or heaviness. This occurs only after exerting and typically resolves within 5 minutes of rest. There is no radiation of the pain and in general this is a new symptom for her. She feels comfortable in her hospital bed on supplemental oxygen. She denies shortness of breath at this time. She denies chest pain. She typically enjoys eating salty food however has been mostly low-sodium for the past week as she has been staying at her sister's house and she does not use much salt. She denies melena, hematochezia, hematuria, or other bleeding. She denies syncope, near syncope, palpitations, fever, nausea, vomiting, or diarrhea. In March 2024, she was seen in consultation for paroxysmal atrial fibrillation. She was hospitalized with hyperosmolar hyperglycemic state and sepsis. She had not been taking her medications for approximately 2 months and was found unresponsive by her . There was concern for stroke on MRI. She was placed on anticoagulation therapy. Her atrial fibrillation was reportedly unstable and she was cardioverted by the critical care staff and placed on amiodarone which was later discontinued due to bradycardia and significantly prolonged QT after the initiation of amiodarone. She has not been taking anticoagulation therapy in the outpatient setting. She has chronically been anemic. Review of systems: As above. Family history: No known premature CAD. Social history: She denies tobacco, alcohol, or drug abuse. She lives at home with her . She has 3 children. Her was present at the bedside. Allergies Allergy/AdvReac Type Severity Reaction Status Date / Time No Known Allergies Allergy Verified 08/24/24 12:50 Home Medications Medication Instructions Recorded Confirmed Type lancets 33 gauge (OneTouch Delica #100 ea 05/28/23 08/24/24 Rx Plus Lancet) aspirin 81 mg tablet,delayed 81 mg PO QAM #30 tabs 03/18/24 09/22/24 Rx release OneTouch Verio test strips (blood #100 ea 03/22/24 08/24/24 Rx sugar diagnostic) blood sugar diagnostic (Accu-Chek #100 ea 03/24/24 08/24/24 Rx Elvira Plus test strips) blood-glucose meter,continuous #1 ea 03/30/24 08/24/24 Rx (Dexcom G7 Wireless Architect) blood-glucose sensor (Dexcom G7 #4 ea 04/25/24 08/24/24 Rx Sensor device) insulin degludec 100 unit/mL (3 14 unit subcut UD 08/15/24 09/22/24 History mL) subcutaneous pen (Tresiba FlexTouch U-100 insulin) sertraline 50 mg tablet 50 mg PO DAILY 08/15/24 09/22/24 History hydralazine 50 mg tablet 50 mg PO TID #100 tabs 08/17/24 09/22/24 Rx amlodipine 10 mg tablet 10 mg PO DAILY #30 tabs 08/24/24 09/22/24 Rx pen needle, diabetic 32 gauge x #100 ea 09/12/24 Rx 5/32" (BD Ultra-Fine Snow Pen Needle) Problem List (Updated 09/22/24 @ 16:10 by Beny Muñoz MD) Pleural effusion Pericardial effusion Exertional angina Acute heart failure with mildly reduced ejection fraction (HFmrEF, 41-49%) Anemia Type 2 diabetes mellitus Chest pain Blister (Acute) Hypoxia (Acute) Elevated troponin (Acute) ONEIL (acute kidney injury) (Acute) CHF (congestive heart failure) (Acute) Hypoxia Elevated troponin Paroxysmal atrial fibrillation ONEIL (acute kidney injury) Wound of right foot Acute on chronic heart failure with preserved ejection fraction (HFpEF, >= 50%) Diabetes mellitus type 2, uncontrolled, with complications Hypertension (Acute) Anxiety and depression Diabetic neuropathy Asymptomatic hypertensive urgency Hypertensive emergency (Acute) Homonymous hemianopsia Encephalopathy (Acute) Mitral regurgitation Neuropathic pain of both feet Edema of both legs Elevated vitamin B12 level Type 2 diabetes mellitus with hyperosmolar hyperglycemic state (HHS) (Acute) RBBB Type II diabetes mellitus with neurological manifestations, uncontrolled (Chronic) Noncompliance with treatment plan (Acute) Lichen sclerosus et atrophicus (Acute) Patient History Medical History Bilateral ankle joint pain Type 2 diabetes mellitus, uncontrolled Proteinuria Hypokalemia Diarrhea Fall Hypomagnesemia Acute UTI Weakness Acute UTI Sepsis Prolonged QT interval Non-convulsive status epilepticus Pulmonary edema Hyperosmolar hyperglycemic state (HHS) Acute metabolic encephalopathy Severe sepsis Complicated UTI (urinary tract infection) Lactic acidosis HHS (hypothenar hammer syndrome) Elevated troponin Unresponsive state DKA (diabetic ketoacidosis) Sepsis Hyponatremia Hyperlipidemia Surgical History History of lumbar surgery L4-L5 H/O total hysterectomy Family History Father Diabetes Prostate cancer Grandmother Diabetes Aunt Colorectal cancer Brother Stroke Denies family history of Ovarian cancer Myocardial infarction Breast cancer Social History Smoking Status: Never smoker Tobacco Type: E-cigarettes / Vaping Second Hand Exposure: No; Do You Dip or Chew Tobacco: No; Hx Alcohol Use: No Hx Substance Use: No Preferred Language: Greenlandic Communication Ability: Effective Communication Ability Comment: Patient reports she has trouble seeing Visual Impairment: No Limitations Hearing Ability: Normal Broth Mixer Required: No Beliefs That Will Affect Care: None marital status: Current Living Situation: Spouse and Family Current Living Situation Comment: Lives with spouse current occupational status: retired 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 How many Children do You have: 3 Feels Safe at Home: Yes Childhood Exposure to Second-Hand Smoke: No Diet: regular Diet Comment: added more salads to diet. caffeine: Yes (soda 3 x week) during the past year weight has: remained stable Dental Care, Regularly: No Physical Activity Frequency: Does not Exercise Seatbelt Use: always Sunscreen Use: No Do you think of yourself as: straight/heterosexual Gender Identity: Female Assistive Devices: Cane, Walker and Wheelchair Physical Exam Physical Exam: Gen.: No acute distress. Alert and oriented. HEENT: Anicteric sclera. Neck: JVD to the mandible with head elevated approximately 30 degrees. No bruits. Normal carotid upstrokes bilaterally. Cardiac: Regular. Normal S1-S2. 1/6 systolic murmur. Pulmonary: Decreased breath sounds at the right base. Otherwise, clear to auscultation bilaterally. Abdomen: Soft, nontender, nondistended, with normoactive bowel sounds. No bruits noted. Extremities: 2+ radial pulses bilaterally. 2+ posterior tibialis pulses bilaterally. 2+ bilateral lower extremity pitting edema to the knees. No cyanosis. Psychiatric: Affect appears appropriate. Results & Data Vital Signs (Past 12 Hours) Vital Signs Temp Pulse Pulse Resp BP BP Pulse Ox 09/22/24 15:13 77 20 176/97 H 93 09/22/24 14:00 81 18 164/90 H 93 09/22/24 13:17 80 09/22/24 12:25 87 L 09/22/24 12:00 77 18 162/87 H 93 09/22/24 11:26 79 20 09/22/24 11:19 86 L 09/22/24 10:30 84 18 171/95 H 95 09/22/24 09:24 82 09/22/24 09:07 36.8 C 82 22 148/93 H 92 O2 Del Method O2 Flow Rate 09/22/24 15:13 Nasal Cannula 4 09/22/24 14:00 Nasal Cannula 4 09/22/24 13:17 09/22/24 12:25 Nasal Cannula 2 09/22/24 12:00 Nasal Cannula 4 09/22/24 11:26 Room Air 09/22/24 11:19 Nasal Cannula 2 09/22/24 10:30 Nasal Cannula 2 09/22/24 09:24 09/22/24 09:07 Room Air Laboratory Results Laboratory Results - last 24 hr 09/22/24 09/22/24 09:20 12:04 WBC 9.22 RBC 2.58 L Hgb 8.1 L Hct 22.6 L MCV 87.6 MCH 31.4 MCHC 35.8 RDW Std Deviation 47.8 H RDW Coeff of Abel 14.9 H Plt Count 157 MPV 9.6 Immature Gran % (Auto) 0.4 Neut % (Auto) 73.8 Lymph % (Auto) 15.0 [place] % (Auto) 9.3 Eos % (Auto) 1.1 Baso % (Auto) 0.4 Neut # (Auto) 6.80 H Lymph # (Auto) 1.38 [place] # (Auto) 0.86 H Eos # (Auto) 0.10 Baso # (Auto) 0.04 Immature Gran # (Auto) 0.04 ESR 20 Sodium 140 Potassium 4.0 Chloride 112 H Carbon Dioxide 21 Anion Gap 7 BUN 37 H Creatinine 2.07 H Est Cr Clr Drug Dosing 24.7 eGFR 25.79 BUN/Creatinine Ratio 17.9 Glucose 162 H Calcium 8.6 Total Bilirubin 1.7 H AST 27 ALT 30 Alkaline Phosphatase 77 Troponin I High Sens 20.2 H 20.2 H C-Reactive Protein 1.39 H B-Natriuretic Peptide 658 H Total Protein 5.9 L Albumin 3.3 L Globulin 2.6 Albumin/Globulin Ratio 1.3 Lipase 10 L Procalcitonin 0.04 Diagnostic Findings ECHO 11/22/23: 1. Normal left ventricular size with mildly reduced systolic function. EF 45- 50%. Hypokinesis of the mid to distal anterolateral and anterior argueta. Moderate concentric left ventricular hypertrophy. 2. Mild left atrial dilation. 3. Moderate mitral regurgitation. 4. Mild pulmonary hypertension. Estimated RVSP 48 mmHg. 5. Small pericardial effusion without echocardiographic evidence of tamponade physiology. 6. Pleural effusion. 7. Compared to prior study on 03/05/2024, LV systolic function has mildly declined. Pericardial and pleural effusions are now present. Chest x-ray 09/22/2024, moderate bilateral pleural effusions. Interstitial pulmonary edema. Report is per radiology. Actual image unavailable for review at the time of this note. ECG personally reviewed 09/22/2024: Sinus rhythm 82 bpm. Cannot rule out anterior infarct. History and physical report reviewed. Labs reviewed and notable for elevated BNP, slightly elevated high-sensitivity troponin but flat, normal potassium, abnormal renal function (above baseline), normal transaminase levels, normal TSH in March 2024, well-controlled LDL in March 2024, chronic and stable anemia. Medications Administered Current Inpatient Medications Furosemide (Furosemide 40 Mg/4 Ml Vial) 40 mg IV BID17 SUMAYA Stop: 10/22/24 16:59 Ampicillin Sodium/Sulbactam Sodium (Unasyn) 3,000 mg in 100 mls @ 200 mls/hr IV Q12H SUMAYA; Protocol Stop: 09/29/24 14:14 Last Admin: 09/22/24 15:03 Dose: 200 mls/hr PG Care Time/CCT Total # of Minutes Spent Total Time Spent with Patient: Total time spent is greater than 50% in coordination of care (as documented) at patient's floor/unit and/or counseling patient: Coding Level of Care Code 52837 INT INP/OBS CARE 3/75MIN Diagnoses Acute heart failure with mildly reduced ejection fraction (HFmrEF, 41-49%) I50.21 Exertional angina I20.89 Mitral regurgitation I34.0 Paroxysmal atrial fibrillation I48.0 Anemia D64.9 Anemia type: unspecified type Hypertension I10 ONEIL (acute kidney injury) N17.9 Pericardial effusion I31.39 Pleural effusion J90 (5) Anemia Anemia type: unspecified type Qualified Code(s): D64.9 - Anemia, unspecified
[2024-09-22] MEDS ORDERED: GLUCOSE 40% GEL 15 GM TUBE PO PRN (15:50)
[2024-09-22] MEDS ORDERED: GLUCAGON FOR INJ 1 MG VIAL SQ PRN (15:50)
[2024-09-22] MEDS ORDERED: ACETAMINOPHEN 325 MG TAB PO PRN (15:50)
[2024-09-22] MEDS ORDERED: DEXTROSE 50% 50 ML SYRINGE IV PRN (15:50)
[2024-09-22] MEDS ORDERED: DOCUSATE SODIUM 100 MG CAP PO PRN (15:50)
[2024-09-22] MEDS ORDERED: GLUCOSE 10 TAB/TUBE PO PRN (15:50)
[2024-09-22] MEDS: INSULIN ASPART PER UNIT CHARGE SC SCH (16:41)
[2024-09-22] MEDS: FUROSEMIDE 40 MG/4 ML VIAL IV SCH (16:46)
[2024-09-22] MEDS: ISOSORBIDE MONO EXTENDED REL 30 MG TABCR PO SCH (16:53)
[2024-09-22] MEDS: APIXABAN 5 MG TABLET PO SCH (20:15)
[2024-09-22] MEDS: hydrALAZINE TAB 50 MG TAB PO SCH (20:15)
[2024-09-22] MEDS ORDERED: LANTUS PER UNIT CHARGE SQ SCH (21:00)
[2024-09-22] MEDS: LANTUS PER UNIT CHARGE SQ ONE (21:05)
--- NOTE | 2024-09-23 05:37 | Electrocardiogram Report ---
Test Reason : Blood Pressure : */* mmHG Vent. Rate : 82 BPM Atrial Rate : 82 BPM P-R Int : 122 ms QRS Dur : 96 ms QT Int : 400 ms P-R-T Axes : 39 22 38 degrees QTcB Int : 467 ms Normal sinus rhythm Possible Anterior infarct , age undetermined Abnormal ECG When compared with ECG of 15-Aug-2024 09:48, QRS duration has increased Confirmed by Beny Muñoz ([id number]) on 09/23/2024 5:36:45 AM Referred By: REFERRED SELF Confirmed By: Beny Muñoz
--- NOTE | 2024-09-23 07:05 | Hospitalist Progress Note ---
Date of Service September 23, 2024 Assessment & Plan (1) Exertional angina: (2) Acute heart failure with mildly reduced ejection fraction (HFmrEF, 41-49%): (3) Type 2 diabetes mellitus: (4) Hypoxia: (5) ONEIL (acute kidney injury): (6) CHF (congestive heart failure): (7) Paroxysmal atrial fibrillation: Plan Pt is a 69 yo female with a past medical history of uncontrolled type 2 diabetes with neuropathy, paroxysmal a fib, HTN, and anxiety/depression that presents to the hospital on 09/22 for new onset chest pain and SOB found to have heart failure. HFmrEF - no prior hx of known heart failure - echo 09/22 showed EF 45-50% and hypokinesis of mid to distal anterolateral and anterior argueta, mild pulm HTN - CXR showing pulmonary edema with moderate bilateral pleural effusions, BNP 658 on admission - evaluated by cardiology; consider adding beta jefferson and SGLT2 as tolerated prior to discharge - diuresis with Lasix 40 IV BID (on 20 mg PO at home) Anemia - patient complains of chills and recent weight loss over the past few months - anemia appears normochromic normocytic - Hgb 8.1 on admission; chronically low for at least the last few months - patient denies bleeding - folate, B12, iron levels wnl - pending reticulocyte count; if not appropriately elevated consider hemeonc consult - typed and crossed, consented for blood, states she thinks she was given transfusion in the past Chest pain, - Patient with chest pain on exertion, associated with dyspnea - History of paroxysmal A-fib - EKG showing NSR, trop peaked at 20.2 - with echo showing new wall abnormalities suggests CAD as cause - cardiology suggesting stress test due to impaired kidney function - trop elevation most likely due to demand in the setting of CHF ONEIL - Cr in march 2024 was wnl - Cr on admission 2.07, somewhat worse today Hypoxia - suspect secondary to volume overload - wean oxygen as tolerated Wound of right foot - patient has history of diabetic neuropathy 1. blister to 1st metatarsal, rested foot on wood burner 2. lateral malleolus wound, patient unsure of origin - Foot XR showing soft tissue swelling without acute osseous abnormality, possible soft tissue gas adjacent to lateral malleolus, CRP elevated, 1.39 - podiatry consulted per reccs of wound nurse - will cover with Unasyn for now -> eventual transition to Augmentin - if wounds worsen on current antibiotic regimen, can consider Zosyn plus daptomycin Type 2 diabetes mellitus - on 14 units Tresiba along with Dexcom at home - Most recent A1C 15.9 in March - Dexcom discontinued on admission; to run out overnight - repeat HA1c tomorrow am Hypertension - mildly elevated on admission - Continue home amlodipine and hydralazine Paroxysmal atrial fibrillation - Patient has not been taking her home Eliquis; was not aware that she had to pick this up at the pharmacy - EKG on admission showed NSR - restarted on Eliquis 5mg BID - possibly send home with pack and have PCP follow-up scheduled for refills Chronic stable diagnoses: depression - continue sertraline VTE ppx: Eliquis Admission and Anticipated Discharge Date Admission Date: September 22, 2024 Supervising Physician Co-Signing Physician Notes I personally examined the patient and verified all chavira points of history and exam, discussed case, and agree with decision making with Dr Bowling feeling better. cardiology input appreciated vitals noted nad heent nc at mmm breathing unlabored on NC O2 no accessory muscles good effort skin without rashes pallor or icterus acute systolic CHF due to what appears c/w ischemic cardiomyopathy likely predominantly due to underlying markedly uncontrolled DM (with also very dense neuropathy and infected foot wounds) -med management, multimodal approach, time, lifestyle change otherwise as above anemia - ?etiology - check retic if high pursue ?occult bleeding if low then probably will need input from heme Subjective Today, pt seen at bedside. She states that she felt these symptoms really star ada suddenly. She states that she was helping her sister out with her new dog that they found out last minute was and so she was staying with her to help out with the puppies and over the course of a few days started to get progressive SOB and chest pain that, prior to just coming into the hospital, ended up being so bad she would feel short of breath even walking to the bathroom. Today her SOB has improved some and her chest pain is now gone. No nausea or vomiting. No other symptoms noted. She states the swelling in her legs has improved also. Review of Systems Review of Systems: Per HPI. Physical Exam Physical Exam: General:Alert and oriented, no acute distress, HEENT: Normocephalic, moist oral mucosa, Cardio: Regular rate and rhythm, Resp:Lungs clear to auscultation b/l, crackles in R middle and lower lobes and L lower lobe GI: Soft and nontender, nondistended, bowel sounds active Skin: Warm, pink, dry, Results & Data Results & Data Vital Signs (Past 12 Hours) Vital Signs Temp Pulse Pulse Resp BP Pulse Ox O2 Del Method 09/23/24 03:50 36.6 C 63 18 149/76 H 93 Nasal Cannula 09/22/24 23:02 36.7 C 70 18 152/72 H 93 Nasal Cannula 09/22/24 22:45 66 09/22/24 22:06 Nasal Cannula 09/22/24 19:52 36.4 C 74 18 155/72 H 93 Nasal Cannula O2 Flow Rate 09/23/24 03:50 4 09/22/24 23:02 4 09/22/24 22:45 09/22/24 22:06 4 09/22/24 19:52 4 Resident Activity Tracking Resident Involvement: Resident Care Provided Care Provided: Adult Hospital Medicine
[2024-09-23 07:50] LABS: Hematocrit (blood only) 20.5 % (37.0-47.0); Hemoglobin 7.2 g/dl (12.0-16.0); Mean Corpuscular Hemoglobin 30.9 pg (25.0-34.0); Mean Corpuscular Hgb Conc 35.1 g/dL (32.0-36.0); Mean Platelet Volume 9.4 fL (9.4-12.4); Platelet Count 149 K/uL (130-400); Red Blood Count 2.33 M/uL (4.20-5.40); White Blood Count 7.87 K/ul (4.8-10.8)
[2024-09-23] MEDS: LANTUS PER UNIT CHARGE SQ SCH (08:02)
[2024-09-23] MEDS ORDERED: SODIUM CHLORIDE 0.9% 50 ML IV PRN (08:06)
[2024-09-23] MEDS: ASPIRIN 81 MG ECTAB PO SCH (08:06)
[2024-09-23] MEDS: amLODIPine BESYLATE 5 MG TAB PO SCH (08:06)
[2024-09-23] MEDS ORDERED: SODIUM CHLORIDE 0.9% 100 ML IV PRN (08:06)
[2024-09-23] MEDS: SERTRALINE HCL 50 MG TABLET PO SCH (08:06)
[2024-09-23 08:11] LABS: BUN Creatinine Ratio 17.3 (10-20); Calcium 8.3 mg/dl (8.6-10.3); Creatinine Clr Calc Pharmacy 25.8 ml/min; Potassium 4.1 mmol/L (3.5-5.1)
[2024-09-23 08:31] LABS: Ferritin 261.2 ng/ml (8-388)
[2024-09-23 08:35] LABS: Folate (Folic Acid),Ser orPlas 9.07 ng/ml (>5.38)
--- NOTE | 2024-09-23 11:35 | Cardiology Progress Note ---
Date of Service September 23, 2024 Assessment & Plan (1) Acute heart failure with mildly reduced ejection fraction (HFmrEF, 41-49%): (2) Exertional angina: (3) Mitral regurgitation: (4) Paroxysmal atrial fibrillation: (5) Anemia: (6) Hypertension: (7) ONEIL (acute kidney injury): (8) Pericardial effusion: (9) Pleural effusion: Plan ASSESSMENT/PLAN: 1. Acute heart failure with mildly reduced EF: Improving with diuresis but still hypervolemic. Monitor renal function electrolytes closely. Continue diuresing to maintain a net negative fluid balance. Consider ARNI after initial diuresis and monitoring of renal function. Consider SGLT2 inhibitor if no contraindication. After ARNI, could also consider spironolactone if renal function allows. Given concern for angina on presentation, will initiate low- dose carvedilol today. If hypotension becomes an issue, can reduce or discontinue amlodipine to allow for heart failure therapy. Strict I's and O's. Low-sodium diet, less than 2000 mg daily. Daily weights. 2. Angina: Presenting symptoms were concerning for exertional angina. Cannot exclude heart failure as causing her symptoms but she has multiple risk factors for CAD. No further angina. Discussed ischemic evaluation. She initially declined ischemic evaluation in the form of coronary angiography. Before pursuing, would further diurese and improve her heart failure status. She would be at high risk for acute kidney injury given her baseline CKD. Could also consider myocardial perfusion study once heart failure managed. Nitrate therapy has been initiated. Start carvedilol today. 3. Mitral regurgitation: Nonsevere. Continue to monitor. 4. Cardiomyopathy: LV systolic function is now mildly reduced. Recommend metoprolol succinate or carvedilol after initial diuresis. Consider ARNI depending on renal function. Ischemic evaluation as discussed above. 5. Anemia: As per primary hospitalist service. No obvious bleeding and seems to be a chronic process over the past year. If concerned for bleeding, can hold anticoagulation therapy. 6. Hypertension: Blood pressure has mostly been elevated but improved this morning. Treatment as above. 7. Acute kidney injury: As per primary hospitalist service. Has been seen by nephrology in the past. 8. Paroxysmal atrial fibrillation: Apparently did not tolerate this in the past while septic and with hyperosmolar hyperglycemic state. Only known episode was in March 2024 with hyperosmolar hyperglycemic state. Unclear if she has had any further episodes. When less ill, cannot exclude that she could have asymptomatic episodes. Possible that her episode was due to her acutely ill state in March 2024. Elevated [id number] or given heart failure, hypertension, diabetes, and prior stroke. Can continue with anticoagulation therapy if no contraindication. Plan to initiate beta-jefferson as above. 9. Pericardial effusion: Small and of of no hemodynamic significance. Can monitor with repeat imaging in the future. 10. Pleural effusions: Hopefully will improve with some diuresis. If continues to feel short of breath despite adequate diuresis, could consider thoracentesis if possible. Symptoms improving thus far. 11. Disposition: Cardiology will continue to follow. Patient care communicated with primary hospitalist, Dr. Villegas. Dr. Ryan will resume her care tomorrow as I will be away from the hospital. Admission and Anticipated Discharge Date Admission Date: September 22, 2024 Subjective Patient was seen late this morning. Her dyspnea on exertion has significantly improved but is not yet back to baseline. She has ambulated to the restroom. She has not had any further exertional chest discomfort. Her edema has impro evelyne, but not back to baseline. She denies syncope, near syncope, lightheadedness, palpitations, or bleeding. She was unaccompanied. Physical Exam Physical Exam: Gen.: No acute distress. Alert and oriented. HEENT: Anicteric sclera. Neck: Mild JVD. Hepatojugular reflux noted. Cardiac: Regular. Normal S1-S2. No audible systolic murmur. Pulmonary: Decreased breath sounds at the bases. Otherwise, clear to auscultation bilaterally. Abdomen: Soft, nontender, nondistended, with normoactive bowel sounds. No bruits noted. Extremities: 2+ radial pulses bilaterally. 2+ posterior tibialis pulses bilaterally. 2+ bilateral lower extremity pitting edema (improved). No cyanosis. Psychiatric: Affect appears appropriate. Results & Data Vital Signs (Past 12 Hours) Vital Signs Temp Pulse Pulse Resp BP Pulse Ox O2 Del Method 09/23/24 11:16 36.4 C L 65 16 138/69 93 Nasal Cannula 09/23/24 09:22 Nasal Cannula 09/23/24 08:00 36.7 C 74 19 140/77 96 Nasal Cannula 09/23/24 07:12 65 09/23/24 03:50 36.6 C 63 18 149/76 H 93 Nasal Cannula O2 Flow Rate 09/23/24 11:16 3 09/23/24 09:22 4 09/23/24 08:00 4 09/23/24 07:12 09/23/24 03:50 4 Intake & Output 09/21/24 09/22/24 09/23/24 09/24/24 06:59 06:59 06:59 06:59 Intake Total 200 / 200 Output Total 1201 / 1201 600 / 600 Balance -1001 / -1001 -600 / -600 Weight 156 lb 15.506 oz Laboratory Results Laboratory Results - last 24 hr 09/22/24 09/22/24 09/22/24 12:04 16:38 18:35 WBC RBC Hgb Hct MCV MCH MCHC RDW Std Deviation RDW Coeff of Abel Plt Count MPV Sodium Potassium Chloride Carbon Dioxide Anion Gap BUN Creatinine Est Cr Clr Drug Dosing eGFR BUN/Creatinine Ratio Glucose POC Glucose 90 Calcium Magnesium Iron TIBC Unsaturated IBC Transferrin % Sat Ferritin Troponin I High Sens 20.2 H 17.5 H Vitamin B12 Folate Blood Type Antibody Screen Crossmatch 09/22/24 09/23/24 09/23/24 20:23 00:11 07:05 WBC 7.87 RBC 2.33 L Hgb 7.2 L Hct 20.5 L* MCV 88.0 MCH 30.9 MCHC 35.1 RDW Std Deviation 48.0 H RDW Coeff of Abel 15.0 H Plt Count 149 MPV 9.4 Sodium 144 Potassium 4.1 Chloride 114 H Carbon Dioxide 23 Anion Gap 7 BUN 37 H Creatinine 2.14 H Est Cr Clr Drug Dosing 25.8 eGFR 24.78 BUN/Creatinine Ratio 17.3 Glucose 58 L POC Glucose 104 H Calcium 8.3 L Magnesium 2.0 Iron 45 TIBC 290 Unsaturated IBC 245 Transferrin % Sat 16 Ferritin 261.2 Troponin I High Sens 17.0 H Vitamin B12 585 Folate 9.07 Blood Type Antibody Screen Crossmatch 09/23/24 09/23/24 09/23/24 07:25 08:08 11:23 WBC RBC Hgb Hct MCV MCH MCHC RDW Std Deviation RDW Coeff of Abel Plt Count MPV Sodium Potassium Chloride Carbon Dioxide Anion Gap BUN Creatinine Est Cr Clr Drug Dosing eGFR BUN/Creatinine Ratio Glucose POC Glucose 82 92 Calcium Magnesium Iron TIBC Unsaturated IBC Transferrin % Sat Ferritin Troponin I High Sens Vitamin B12 Folate Blood Type O Positive Antibody Screen NEGATIVE Crossmatch See Detail Diagnostic Findings Labs reviewed and notable for abnormal but stable renal function since presentation, mildly worsened anemia compared to presentation. Telemetry personally reviewed: Sinus rhythm. No arrhythmia. Medications Administered Current Inpatient Medications Acetaminophen (Acetaminophen 325 Mg Tab) 650 mg PO Q4H PRN PRN Reason: Pain or Fever Stop: 10/22/24 15:49 Amlodipine Besylate (Amlodipine Besylate 5 Mg Tab) 10 mg PO DAILY SUMAYA Stop: 10/23/24 08:59 Last Admin: 09/23/24 08:06 Dose: 10 mg Apixaban (Apixaban 5 Mg Tablet) 5 mg PO BID SUMAYA Stop: 10/22/24 20:59 Last Admin: 09/23/24 09:32 Dose: Not Given Aspirin (Aspirin 81 Mg Ectab) 81 mg PO QAM SUMAYA Stop: 10/23/24 08:59 Last Admin: 09/23/24 08:06 Dose: 81 mg Dextrose (Dextrose 50% 50 Ml Syringe) 25 - 50 ml IV UD PRN; Protocol PRN Reason: Hypoglycemia Protocol Stop: 10/22/24 15:49 Docusate Sodium (Docusate Sodium 100 Mg Cap) 100 mg PO BID PRN PRN Reason: Constipation Stop: 10/22/24 15:49 Furosemide (Furosemide 40 Mg/4 Ml Vial) 40 mg IV BID17 SUMAYA Stop: 10/22/24 16:59 Last Admin: 09/23/24 09:38 Dose: 40 mg Glucagon (Glucagon For Inj 1 Mg Vial) 1 mg SQ UD PRN; Protocol PRN Reason: Hypoglycemia Protocol Stop: 10/22/24 15:49 Glucose (Glucose 40% Gel 15 Gm Tube) 15 - 30 gm PO UD PRN; Protocol PRN Reason: Hypoglycemia Protocol Stop: 10/22/24 15:49 Glucose (Glucose 10 Tab/Tube) 4 - 8 tab PO UD PRN; Protocol PRN Reason: Hypoglycemia Protocol Stop: 10/22/24 15:49 Hydralazine HCl (Hydralazine Tab 50 Mg Tab) 50 mg PO TID SUMAYA Stop: 10/22/24 20:59 Last Admin: 09/23/24 08:06 Dose: 50 mg Ampicillin Sodium/Sulbactam Sodium (Unasyn) 3,000 mg in 100 mls @ 200 mls/hr IV Q12H SUMAYA; Protocol Stop: 09/29/24 14:14 Last Infusion: 09/23/24 02:43 Dose: Infused Sodium Chloride (Nss) 100 mls @ 15 mls/hr IV .Q6H40M PRN PRN Reason: For Transfusion Duration Stop: 09/23/24 16:07 Sodium Chloride (Nss) 50 mls @ 15 mls/hr IV .Q3H20M PRN PRN Reason: For Transfusion Duration Stop: 09/23/24 16:07 Insulin Aspart (Insulin Aspart Per Unit Charge) 0 units SC ACHS SUMAYA Stop: 10/22/24 16:29 Last Admin: 09/23/24 08:02 Dose: 2 units Insulin Glargine (Lantus Per Unit Charge) 14 units SQ DAILY [facility] Stop: 10/23/24 08:59 Last Admin: 09/23/24 08:02 Dose: 14 units Isosorbide Mononitrate (Isosorbide [place] Extended Rel 30 Mg Tabcr) 30 mg PO QAM [facility] Stop: 10/22/24 16:14 Last Admin: 09/23/24 08:06 Dose: 30 mg Miscellaneous (Carbohydrates For Hypoglycemia ) 15 - 30 gm PO UD PRN PRN Reason: Hypoglycemia Protocol Stop: 10/22/24 15:49 Sertraline HCl (Sertraline Hcl 50 Mg Tablet) 50 mg PO DAILY [facility] Stop: 10/23/24 08:59 Last Admin: 09/23/24 08:06 Dose: 50 mg PG Care Time/CCT Total # of Minutes Spent Total Time Spent with Patient: Total time spent is greater than 50% in coordination of care (as documented) at patient's floor/unit and/or counseling patient: Coding Level of Care Code 40493 SUB INP/OBS CARE 3/50MIN Diagnoses Acute heart failure with mildly reduced ejection fraction (HFmrEF, 41-49%) I50.21 Exertional angina I20.89 Mitral regurgitation I34.0 Paroxysmal atrial fibrillation I48.0 Anemia D64.9 Anemia type: unspecified type Hypertension I10 ONEIL (acute kidney injury) N17.9 Pericardial effusion I31.39 Pleural effusion J90 (5) Anemia Anemia type: unspecified type Qualified Code(s): D64.9 - Anemia, unspecified
[2024-09-23 14:11] LABS: Reticulocyte % 3.62 % (0.50-2.00); Reticulocytes # 0.08 10^6/uL (0.020-0.100)
--- NOTE | 2024-09-23 16:14 | Billing Data ---
Date of Service September 23, 2024 Coding Level of Care Code 29052 SUB INP/OBS CARE
--- NOTE | 2024-09-23 16:14 | Billing Data ---
Date of Service September 23, 2024 Coding Level of Care Code 85885 SUB INP/OBS CARE
[2024-09-23 18:40] LABS: A calco-baum cmplx NotReported Not Detected (NotDetected); Bact fragilis Not Reported Not Detected (NotDetected); Blood Culture Id Panel See PCR Comment (NotDetected); C auris Not Reported Not Detected (NotDetected); Calbicans Not Reported Not Detected (NotDetected); Candida glabrata Not Reported Not Detected (NotDetected); Candida krusei Not Reported Not Detected (NotDetected); Cneoformans/gatti Not Reported Not Detected (NotDetected); Cparapsilosis Not Reported Not Detected (NotDetected); E cloacae compx Not Reported Not Detected (NotDetected); Efaecalis Not Reported Not Detected (NotDetected); Efaecium Not Reported Not Detected (NotDetected); Enterobacterales Not Reported Not Detected (NotDetected); Escherichia coli Not Reported Not Detected (NotDetected); H influenzae Not Reported Not Detected (NotDetected); K aerogenes Not Reported Not Detected (NotDetected); Koxytoca Not Reported Not Detected (NotDetected); Kpneumoniae grp Not Reported Not Detected (NotDetected); Lmonocyt Not Reported Not Detected (NotDetected); N meningitidis Not Reported Not Detected (NotDetected); P aeruginosa Not Reported Not Detected (NotDetected); Proteus spp Not Reported Not Detected (NotDetected); Salmonella spp Not Reported Not Detected (NotDetected); Staph lugdunensis Not Reported Not Detected (NotDetected); Staph spp. Not Reported DETECTED (NotDetected); Staphaureus Not Reported Not Detected (NotDetected); Staphepi Not Reported DETECTED (NotDetected); Staphylococcus spp. DETECTED (NotDetected); Stenmaltophilia Not Reported Not Detected (NotDetected); Strep agal(GrpB) Not Reported Not Detected (NotDetected); Strep pneum Not Reported Not Detected (NotDetected); Strep pyog (GrpA) Not Reported Not Detected (NotDetected); Strep spp Not Reported Not Detected (NotDetected); mecAC Resistant Gene Not Detected (NotDetected)
[2024-09-23 19:02] LABS: Staphylococcus epidermidis DETECTED (NotDetected)
[2024-09-24 07:15] LABS: Estimated Average Glucose 88 mg/dl; Hemoglobin A1C 4.7 % (4.5-5.6)
[2024-09-24 07:26] LABS: Hematocrit (blood only) 19.9 % (37.0-47.0); Hemoglobin 7.1 g/dl (12.0-16.0); Mean Corpuscular Hemoglobin 31.4 pg (25.0-34.0); Mean Corpuscular Hgb Conc 35.7 g/dL (32.0-36.0); Mean Corpuscular Volume 88.1 fL (80.0-100.0); Mean Platelet Volume 9.4 fL (9.4-12.4); Platelet Count 145 K/uL (130-400); RDW Coefficient of Variation 15.1 % (11.5-14.5); Red Blood Count 2.26 M/uL (4.20-5.40); White Blood Count 6.92 K/ul (4.8-10.8)
[2024-09-24 07:56] LABS: BUN Creatinine Ratio 16.2 (10-20); Calcium 8.2 mg/dl (8.6-10.3); Creatinine Clr Calc Pharmacy 21.7 ml/min; Potassium 3.8 mmol/L (3.5-5.1)
--- NOTE | 2024-09-24 09:35 | Hospitalist Progress Note ---
Date of Service September 24, 2024 Assessment & Plan (1) Exertional angina: (2) Acute heart failure with mildly reduced ejection fraction (HFmrEF, 41-49%): (3) Type 2 diabetes mellitus: (4) Hypoxia: (5) ONEIL (acute kidney injury): (6) CHF (congestive heart failure): (7) Paroxysmal atrial fibrillation: Plan Pt is a 69 yo female with a past medical history of uncontrolled type 2 diabetes with neuropathy, paroxysmal a fib, HTN, and anxiety/depression that presents to the hospital on 09/22 for new onset chest pain and SOB found to have heart failure. HFmrEF - no prior hx of known heart failure - echo 09/22 showed EF 45-50% and hypokinesis of mid to distal anterolateral and anterior argueta, mild pulm HTN - CXR showing pulmonary edema with moderate bilateral pleural effusions, BNP 658 on admission - Still has some fluid but improved compared to yesterday Given worsening ONEIL and improved volume status, will decrease Lasix to 20 mg IV daily - Evaluated by cardiology: Added Carvedilol May consider perfusion study on Thursday given catheterization should not be done due to her current ONEIL Anemia - patient complains of chills and recent weight loss over the past few months - anemia appears normochromic normocytic - Hgb 8.1 on admission; chronically low for at least the last few months Hgb 7.1 in am labs - patient denies bleeding - folate, B12, iron levels wnl - reticulocyte count increased - Peripheral smear ordered and pending to characterize better; may consider heme/onc eval depending on results - typed and crossed, consented for blood, states she thinks she was given renae sfusion in the past Chest pain, - Patient with chest pain on exertion, associated with dyspnea - History of paroxysmal A-fib; NSR today seen on telemetry - trop peaked at 20.2 - with echo showing new wall abnormalities suggests CAD as cause but pulmonary vascular congestion could also explain it - cardiology suggesting perfusion scan instead of cath due to impaired kidney function as mentioned above - trop elevation most likely due to demand in the setting of CHF ONEIL - Cr in march 2024 was wnl - Cr on admission 2.07; worse today w/ am Cr showing 2.35 - Decreased Lasix to 20 mg IV daily and encouraged PO hydration as able within 1500 mL fluid restriction Hypoxia - suspect secondary to volume overload - wean oxygen as tolerated Wound of right foot - patient has history of diabetic neuropathy 1. blister to 1st metatarsal, rested foot on wood burner 2. lateral malleolus wound, patient unsure of origin - Foot XR showing soft tissue swelling without acute osseous abnormality, possible soft tissue gas adjacent to lateral malleolus, CRP elevated, 1.39 - podiatry consulted per reccs of wound nurse - will cover with Unasyn for now -> eventual transition to Augmentin - if wounds worsen on current antibiotic regimen, can consider Zosyn plus daptomycin Type 2 diabetes mellitus - on 14 units Tresiba along with Dexcom at home - Most recent A1C 15.9 in March; decreased to 4.9% in am lab - Dexcom discontinued on admission; to run out overnight Hypertension - mildly elevated on admission - Continue home amlodipine and hydralazine Paroxysmal atrial fibrillation - Patient has not been taking her home Eliquis; was not aware that she had to pick this up at the pharmacy - EKG on admission showed NSR - restarted on Eliquis 5mg BID - possibly send home with pack and have PCP follow-up scheduled for refills Chronic stable diagnoses: depression - continue sertraline VTE ppx: Eliquis Admission and Anticipated Discharge Date Admission Date: September 22, 2024 Supervising Physician Co-Signing Physician Notes Patient seen and examined, chart reviewed, case discussed with Alexa Bueno MD and I agree with the assessment and plan as above except as otherwise noted above. Continuing to improve, but still with some exertional discomfort. Acute CHFrEF, silent mi suspected. Cath limited by renal dysfunction. No ongoing chest pain at rest. Improving with diuresis, near euvolemic. Sx likely exacerbated by underlying anemia. Iron studies low-normal, but no proportionate with degree of anemia. B12/folic acid normal. Normocytic. Pt is with some CKD, but again disproportionate with degree of anemia. +reticulocytes, however retic index is 0.8, severely hypoproliferative. Peripheral smear added. Will need followup with heme/onc and consideration of marrow bx for primary hypoproliferative dz/MDS. Given underlying ischemic cardiac diease will liberalize transfusion thershold to 8.0g/dL, one unit it indicated. Volume status is improved, will give unit with 20mg IV lasix. No signs of instabili ty/bleeding. Occult bleeding/GIB possible but again iron studies are not fully consistent with this. Agree w/ above. Blood consent signed at bedside. Subjective Patient was evaluated at bedside and found to be accompanied by relative, awake alert and oriented, afebrile, in no acute distress. Endorses persistent but improved SOB and RAMIREZ. Has not had recurrence of chest pain. Denies noting any blood in her urine, stool, or vaginal bleeding, but does state that her vision is affected due to cataracts and retinal detachment for which she has been seeing flat examiner as an outpatient. Last colonoscopy she can recall was ~15 years ago and was negative at that time. Denies abdominal or back pain. Physical Exam Physical Exam: General:Alert and oriented, no acute distress, HEENT: Normocephalic, moist oral mucosa, Cardio: Regular rate and rhythm, Resp:Lungs clear to auscultation b/l, some crackles in R middle and lower lobes and L lower lobe GI: Soft and nontender, nondistended, bowel sounds active Skin: Warm, pink, dry, right hallux covered in bandage that was slightly saturated w/ non-bloody fluid Results & Data Results & Data Vital Signs (Past 12 Hours) Vital Signs Temp Pulse Resp BP Pulse Ox O2 Del Method 09/24/24 07:33 36.5 C 78 18 156/79 H 96 Room Air, Nasal Cannula 09/24/24 02:46 36.6 C 71 16 171/81 H 93 Nasal Cannula 09/23/24 23:00 36.7 C 82 17 162/85 H 93 Nasal Cannula Resident Activity Tracking Resident Involvement: Resident Care Provided Care Provided: Adult Hospital Medicine
--- NOTE | 2024-09-24 10:08 | Cardiology Progress Note ---
Date of Service September 24, 2024 Assessment & Plan (1) Acute heart failure with mildly reduced ejection fraction (HFmrEF, 41-49%): (2) Exertional angina: (3) Mitral regurgitation: (4) Paroxysmal atrial fibrillation: (5) Anemia: (6) Hypertension: (7) ONEIL (acute kidney injury): (8) Pericardial effusion: (9) Pleural effusion: Plan ASSESSMENT/PLAN: 1. Acute heart failure with mildly reduced EF: Improved. She has affected good diuresis. Given the change in her renal function and elevated BUN I think would be reasonable to reduce her diuretic regimen to a single daily dose of Lasix. 2. Angina: She has an element of exertional chest discomfort. Improved with di uresis. She has regional wall motion abnormalities on her echocardiogram and is certainly at risk for obstructive coronary disease. However, with her degree of renal dysfunction she is at high risk of contrast nephropathy with angiography. She also has a significant anemia which likely contributes to her symptoms. I think we will concentrate on medical therapy, addressing her anemia, continuing diuresis and consider a perfusion study to exclude high risk features. 3. Mitral regurgitation: Moderate. Will likely improve with diuresis. This can be monitored over time. 4. Cardiomyopathy: Mild. Possibly ischemic given the regional wall motion abnormalities. Also possibly related to poorly controlled hypertension. Will start low-dose carvedilol today. She does not appear to be a good candidate for ALIDA/ARB/Entresto or spironolactone based on her degree of renal dysfunction. Will continue with the hydralazine and nitrates. Also in a category of patients with poor renal function who may not benefit from SGLT2 inhibitors. 5. Anemia: As per primary hospitalist service. Possibly contributing to her symptoms. I cannot find a specific evaluation for gastrointestinal bleeding. Normocytic which would be less consistent with chronic blood loss. Elevated reticulocyte count. Not felt to be related exclusively to her renal dysfunction. She may need evaluation by engineering tech. no obvious bleeding and seems to be a chronic process over the past year. If concerned for bleeding, can hold anticoagulation therapy. 6. Hypertension: Blood pressure has mostly been elevated but improved this morning. Will initiate carvedilol. 7. Acute kidney injury: Creatinine slightly worse today. Likely due to aggressive diuresis. 8. Paroxysmal atrial fibrillation: Sinus rhythm today. Continue systemic anticoagulation provided there are no contraindications. Despite renal dysfunction apixaban 5 mg twice daily is the appropriate dose. 9. Pericardial effusion: Small and of of no hemodynamic significance. Can monitor with repeat imaging in the future. 10. Pleural effusions: Hopefully will improve with some diuresis. Chest exam benign today. Admission and Anticipated Discharge Date Admission Date: September 22, 2024 Subjective This morning patient claims to be feeling better. She states there is been a notable improvement in her breathing since admission. Yesterday she was ambulatory to the bathroom and states that the chest discomfort that she was noticing with activity has also improved. No dizziness or lightheadedness. No sense of palpitation. She feels that her lower extremity edema is also much better. Review of Systems Review of Systems: Per HPI Physical Exam Physical Exam: Gen.: No acute distress. Alert and oriented. She answered all questions appropriately. HEENT: Anicteric sclera. Cardiac: Regular. Normal S1-S2. No audible systolic murmur. Pulmonary: No rales. No expiratory wheezing. Normal respiratory effort. Extremities: 2+ radial pulses bilaterally. Mild nonpitting edema bilaterally. No cyanosis. Psychiatric: Affect appears appropriate. Results & Data Vital Signs (Past 12 Hours) Vital Signs Temp Pulse Resp BP Pulse Ox O2 Del Method 09/24/24 07:33 36.5 C 78 18 156/79 H 96 Room Air, Nasal Cannula 09/24/24 02:46 36.6 C 71 16 171/81 H 93 Nasal Cannula 09/23/24 23:00 36.7 C 82 17 162/85 H 93 Nasal Cannula Laboratory Results Abnormal Lab Results 09/22/24 09/23/24 09/23/24 10:41 07:05 11:23 WBC RBC Hgb Hct MCV MCH MCHC RDW Std Deviation RDW Coeff of Abel Plt Count MPV Reticulocyte % (Auto) 3.62 H Reticulocyte # 0.080 Sodium Potassium Chloride Carbon Dioxide Anion Gap BUN Creatinine Est Cr Clr Drug Dosing eGFR BUN/Creatinine Ratio Glucose POC Glucose 92 Estimat Average Glucose Hemoglobin A1c Calcium Staphylococcus sp PCR DETECTED A mecA/C-Methicil Resis Gene Not Detected Staph epidermidis (PCR) DETECTED A Bld Cult ID Panel PCR See PCR Comment 09/23/24 09/23/24 09/24/24 16:16 19:50 06:39 WBC 6.92 RBC 2.26 L Hgb 7.1 L Hct 19.9 L* MCV 88.1 MCH 31.4 MCHC 35.7 RDW Std Deviation 49.0 H RDW Coeff of Abel 15.1 H Plt Count 145 MPV 9.4 Reticulocyte % (Auto) Reticulocyte # Sodium 144 Potassium 3.8 Chloride 112 H Carbon Dioxide 25 Anion Gap 7 BUN 38 H Creatinine 2.35 H Est Cr Clr Drug Dosing 21.7 eGFR 22.15 BUN/Creatinine Ratio 16.2 Glucose 70 POC Glucose 96 162 H Estimat Average Glucose 88 Hemoglobin A1c 4.7 Calcium 8.2 L Staphylococcus sp PCR mecA/C-Methicil Resis Gene Staph epidermidis (PCR) Bld Cult ID Panel PCR 09/24/24 07:10 WBC RBC Hgb Hct MCV MCH MCHC RDW Std Deviation RDW Coeff of Abel Plt Count MPV Reticulocyte % (Auto) Reticulocyte # Sodium Potassium Chloride Carbon Dioxide Anion Gap BUN Creatinine Est Cr Clr Drug Dosing eGFR BUN/Creatinine Ratio Glucose POC Glucose 82 Estimat Average Glucose Hemoglobin A1c Calcium Staphylococcus sp PCR mecA/C-Methicil Resis Gene Staph epidermidis (PCR) Bld Cult ID Panel PCR Diagnostic Findings Echocardiogram 09/22/2024: Mildly reduced LV systolic function with ejection fraction 45 to 50%. Regional wall motion abnormalities involving the mid to distal anterolateral and anterior argueta. Moderate LVH. Moderate mitral regurgitation. Small pericardial effusion. Pulmonary hypertension. PG Care Time/CCT Total # of Minutes Spent Total Time Spent with Patient: Total time spent is greater than 50% in coordination of care (as documented) at patient's floor/unit and/or counseling patient: Coding Level of Care Code 67036 SUB INP/OBS CARE 235MIN Diagnoses Acute heart failure with mildly reduced ejection fraction (HFmrEF, 41-49%) I50.21 Exertional angina I20.89 Mitral regurgitation I34.0 Paroxysmal atrial fibrillation I48.0 Anemia D64.9 Anemia type: unspecified type Hypertension I10 ONEIL (acute kidney injury) N17.9 Pericardial effusion I31.39 Pleural effusion J90 (5) Anemia Anemia type: unspecified type Qualified Code(s): D64.9 - Anemia, unspecified
--- NOTE | 2024-09-24 12:07 | Billing Data ---
Date of Service September 24, 2024 Coding Level of Care Code 80044 SUB INP/OBS CARE
[2024-09-24] MEDS: carvediloL 3.125 MG TAB PO SCH (12:23)
[2024-09-24] MEDS ORDERED: SODIUM CHLORIDE 0.9% 50 ML IV PRN (12:43)
[2024-09-24] MEDS ORDERED: SODIUM CHLORIDE 0.9% 100 ML IV PRN (12:43)
[2024-09-24] MEDS ORDERED: FUROSEMIDE 40 MG/4 ML VIAL IV SCH (17:00)
[2024-09-24] MEDS: FUROSEMIDE INJ 20 MG/2 ML VIAL IV ONE (18:49)
[2024-09-24 19:45] LABS: Hematocrit (blood only) 24.4 % (37.0-47.0); Hemoglobin 8.8 g/dl (12.0-16.0)
[2024-09-24] MEDS: CARBOHYDRATES FOR HYPOGLYCEMIA PO PRN (20:00)
[2024-09-25 06:06] LABS: Hematocrit (blood only) 24.1 % (37.0-47.0); Hemoglobin 8.6 g/dl (12.0-16.0); Mean Corpuscular Hemoglobin 31.9 pg (25.0-34.0); Mean Corpuscular Hgb Conc 35.7 g/dL (32.0-36.0); Mean Corpuscular Volume 89.3 fL (80.0-100.0); Mean Platelet Volume 9.6 fL (9.4-12.4); Platelet Count 170 K/uL (130-400); RDW Coefficient of Variation 14.4 % (11.5-14.5); RDW Standard Deviation 46.2 fL (36.4-46.3); White Blood Count 7.53 K/ul (4.8-10.8)
[2024-09-25 06:15] LABS: BUN Creatinine Ratio 18.8 (10-20); Calcium 8.1 mg/dl (8.6-10.3); Creatinine Clr Calc Pharmacy 20.4 ml/min; Potassium 4.1 mmol/L (3.5-5.1)
[2024-09-25] MEDS: FUROSEMIDE 40 MG/4 ML VIAL IV SCH (08:59)
--- NOTE | 2024-09-25 09:25 | Hospitalist Progress Note ---
Date of Service September 25, 2024 Assessment & Plan (1) Exertional angina: (2) Acute heart failure with mildly reduced ejection fraction (HFmrEF, 41-49%): (3) Type 2 diabetes mellitus: (4) Hypoxia: (5) ONEIL (acute kidney injury): (6) CHF (congestive heart failure): (7) Paroxysmal atrial fibrillation: Plan Pt is a 69 yo female with a past medical history of uncontrolled type 2 diabetes with neuropathy, paroxysmal a fib, HTN, and anxiety/depression that presents to the hospital on 09/22 for new onset chest pain and SOB found to have heart failure. HFmrEF - no prior hx of known heart failure - echo 09/22 showed EF 45-50% and hypokinesis of mid to distal anterolateral and anterior argueta, mild pulm HTN - CXR showing pulmonary edema with moderate bilateral pleural effusions, BNP 658 on admission - Still has some pedal edema but improved compared to yesterday and now able to saturate well at room air; has some residual RAMIREZ but also improved from yesterday Given worsening ONEIL and improved volume status, will dc Lasix - Evaluated by cardiology: Added Carvedilol May consider perfusion study versus catheterization on Thursday Anemia - patient complains of chills and recent weight loss over the past few months - anemia appears normochromic normocytic - Hgb 8.1 on admission; chronically low for at least the last few months - S/p transfusion of 1 unit of PRBC; 1 unit still on hold w/ transfusion threshold of Hgb 8 Hgb 8.6 in am labs - patient denies bleeding; folate, B12, iron levels wnl - reticulocyte count increased - Peripheral smear ordered and pending - typed and crossed, consented for blood, states she thinks she was given transfusion in the past - May consider Heme/Onc referral to evaluate Chest pain, - Patient with chest pain on exertion, associated with dyspnea - History of paroxysmal A-fib; NSR today seen on telemetry - trop peaked at 20.2 - with echo showing new wall abnormalities suggests CAD as cause but pulmonary vascular congestion could also explain it - cardiology suggesting perfusion scan versus cath tomorrow - trop elevation most likely due to demand in the setting of CHF ONEIL - Cr in march 2024 was wnl - Cr on admission 2.07; worse today w/ am Cr showing 2.50 - Possibly due to recent anemia plus lasix use - Monitor am labs after dc lasix Wound of right foot - patient has history of diabetic neuropathy 1. blister to 1st metatarsal, rested foot on wood burner 2. lateral malleolus wound, patient unsure of origin - Foot XR showing soft tissue swelling without acute osseous abnormality, possible soft tissue gas adjacent to lateral malleolus, CRP elevated, 1.39 - podiatry consulted per reccs of wound nurse - will cover with Unasyn for now -> eventual transition to Augmentin - if wounds worsen on current antibiotic regimen, can consider Zosyn plus daptomycin Type 2 diabetes mellitus - on 14 units Tresiba along with Dexcom at home - Most recent A1C 15.9 in March; decreased to 4.9% in am lab - Dexcom discontinued on admission; to run out overnight Hypertension - mildly elevated on admission - Continue home amlodipine and hydralazine Paroxysmal atrial fibrillation - Patient has not been taking her home Eliquis; was not aware that she had to pick this up at the pharmacy - EKG on admission showed NSR - Eliquis 5 mg bid - possibly send home with pack and have PCP follow-up scheduled for refills Hypoxia -- Resolved - suspect secondary to volume overload - now at room air Chronic stable diagnoses: depression - continue sertraline VTE ppx: Eliquis Admission and Anticipated Discharge Date Admission Date: September 22, 2024 Supervising Physician Co-Signing Physician Notes Patient seen and examined, chart reviewed, case discussed with Alexa Bueno MD and I agree with the assessment and plan as above except as otherwise noted above. Is progressing well today. She feels greatly improved today, notes that she did seem to have immediate symptom and approval following transfusion of packed red blood cells. She was given some additional diuresis with this unit does not show signs of volume overload at this time. Lungs are clear. renal function is slightly contracted, will hold oral Lasix today. Clinically patient is progressing well. Anticipate perfusion study tomorrow. As noted will need follow-up with hematology oncology for possible bone marrow failure as an outpatient. Patient is pleasant no acute concerns and feels greatly improved, no questions at time of bedside visit. Agree with management above. Subjective Feeling much better after PRBC transfusion from yesterday. Now able to breathe at room air. SOB resolved but still having some RAMIREZ with ambulation to and from the bathroom. Denies chest pain, fevers, chills, weakness, or any other sxs. Physical Exam Physical Exam: General:Alert and oriented, no acute distress, HEENT: Normocephalic, moist oral mucosa, Cardio: Regular rate and rhythm, Resp:Lungs clear to auscultation b/l, present but mildly reduced breath sounds in R lung, good breath sounds from L lung GI: Soft and nontender, nondistended, bowel sounds active Skin: Warm, pink, dry, pedal edema with pitting in b/l LE improved from yesterday, right hallux covered in bandage that was slightly saturated w/ non- bloody fluid Results & Data Results & Data Vital Signs (Past 12 Hours) Vital Signs Temp Pulse Pulse Resp BP Pulse Ox O2 Del Method 09/25/24 07:28 36.6 C 79 20 159/88 H 95 Room Air 09/25/24 07:00 71 09/25/24 03:18 37.1 C 69 19 168/85 H 92 Room Air 09/24/24 22:25 36.6 C 71 18 152/71 H 91 Room Air Resident Activity Tracking Resident Involvement: Resident Care Provided Care Provided: Adult Hospital Medicine
--- NOTE | 2024-09-25 10:15 | Cardiology Progress Note ---
Date of Service September 25, 2024 Assessment & Plan (1) Acute heart failure with mildly reduced ejection fraction (HFmrEF, 41-49%): (2) Exertional angina: (3) Mitral regurgitation: (4) Paroxysmal atrial fibrillation: (5) Anemia: (6) Hypertension: (7) ONEIL (acute kidney injury): (8) Pericardial effusion: (9) Pleural effusion: Plan ASSESSMENT/PLAN: 1. Acute heart failure with mildly reduced EF: Improved. It appears that her diuretic was discontinued entirely. She may benefit from a daily dose of oral Lasix, likely 20 mg. Renal function declined slightly again today. 2. Angina: She has an element of exertional chest discomfort. This is much improved with diuresis. She also received a unit of blood which may improve her symptoms. Will continue carvedilol as well. Evaluation for coronary artery disease will involve perfusion study tomorrow. 3. Mitral regurgitation: Moderate. Will likely improve with diuresis. This can be monitored over time. 4. Cardiomyopathy: Mild. Possibly ischemic given the regional wall motion abnormalities. Also possibly related to poorly controlled hypertension. Carvedilol initiated. Will increase the dose as tolerated. She does not appear to be a good candidate for ALIDA/ARB/Entresto or spironolactone based on her degree of renal dysfunction. Will continue with the hydralazine and nitrates. Also in a category of patients with poor renal function who may not benefit from SGLT2 inhibitors. 5. Anemia: This appears to be related to poor Red cell production. She may benefit from a hematology evaluation. 1 unit of red blood cells transfused yesterday with improvement in hemoglobin levels. 6. Hypertension: Blood pressure has mostly been elevated but improved this morning. Will increase carvedilol. 7. Acute kidney injury: Creatinine slightly worse today. Very minimal change. Hopefully will see some improvement with less aggressive diuresis. 8. Paroxysmal atrial fibrillation: Sinus rhythm today. Continue systemic anticoagulation provided there are no contraindications. Despite renal dysfun ction apixaban 5 mg twice daily is the appropriate dose. No evidence of active bleeding. 9. Pericardial effusion: Small and of of no hemodynamic significance. Can monitor with repeat imaging in the future. 10. Pleural effusions: Hopefully will improve with some diuresis. Chest exam benign today. Based on her reduced LV systolic function and risk factors for coronary disease including exertional chest discomfort we will perform perfusion imaging tomorrow. Not a good candidate for coronary angiography given her renal dysfunction and improvement in symptoms. Admission and Anticipated Discharge Date Admission Date: September 22, 2024 Subjective This morning patient claimed feeling well. She was ambulatory to the bathroom without symptoms. She states that the chest pressure and breathing difficulty have improved significantly. Only mild dyspnea now with ambulation. No dizziness or lightheadedness. No toe or foot pain. Review of Systems Review of Systems: Per HPI Physical Exam Physical Exam: Gen.: No acute distress. Alert and oriented. She answered all questions appropriately. HEENT: Anicteric sclera. Cardiac: Regular. Normal S1-S2. No audible systolic murmur. Pulmonary: No rales. No expiratory wheezing. Normal respiratory effort. Extremities: 2+ radial pulses bilaterally. Mild nonpitting edema bilaterally. No cyanosis. Psychiatric: Affect appears appropriate. Results & Data Vital Signs (Past 12 Hours) Vital Signs Temp Pulse Pulse Resp BP Pulse Ox O2 Del Method 09/25/24 07:28 36.6 C 79 20 159/88 H 95 Room Air 09/25/24 07:00 71 09/25/24 03:18 37.1 C 69 19 168/85 H 92 Room Air 09/24/24 22:25 36.6 C 71 18 152/71 H 91 Room Air Laboratory Results Abnormal Lab Results 09/23/24 09/24/24 09/24/24 08:08 11:33 16:17 WBC RBC Hgb Hct MCV MCH MCHC RDW Std Deviation RDW Coeff of Abel Plt Count MPV Sodium Potassium Chloride Carbon Dioxide Anion Gap BUN Creatinine Est Cr Clr Drug Dosing eGFR BUN/Creatinine Ratio Glucose POC Glucose 99 93 Calcium Blood Type O Positive Antibody Screen NEGATIVE Crossmatch See Detail 09/24/24 09/24/24 09/24/24 19:23 19:49 20:06 WBC RBC Hgb 8.8 L Hct 24.4 L MCV MCH MCHC RDW Std Deviation RDW Coeff of Abel Plt Count MPV Sodium Potassium Chloride Carbon Dioxide Anion Gap BUN Creatinine Est Cr Clr Drug Dosing eGFR BUN/Creatinine Ratio Glucose POC Glucose 66 L* 70 Calcium Blood Type Antibody Screen Crossmatch 09/24/24 09/25/24 09/25/24 20:39 05:26 07:12 WBC 7.53 RBC 2.70 L Hgb 8.6 L Hct 24.1 L MCV 89.3 MCH 31.9 MCHC 35.7 RDW Std Deviation 46.2 RDW Coeff of Abel 14.4 Plt Count 170 MPV 9.6 Sodium 142 Potassium 4.1 Chloride 109 H Carbon Dioxide 23 Anion Gap 10 BUN 47 H Creatinine 2.50 H Est Cr Clr Drug Dosing 20.4 eGFR 20.56 BUN/Creatinine Ratio 18.8 Glucose 89 POC Glucose 86 112 H Calcium 8.1 L Blood Type Antibody Screen Crossmatch PG Care Time/CCT Total # of Minutes Spent Total Time Spent with Patient: Total time spent is greater than 50% in coordination of care (as documented) at patient's floor/unit and/or counseling patient: Coding Level of Care Code 33194 SUB INP/OBS CARE 235MIN Diagnoses Acute heart failure with mildly reduced ejection fraction (HFmrEF, 41-49%) I50.21 Exertional angina I20.89 Mitral regurgitation I34.0 Paroxysmal atrial fibrillation I48.0 Anemia D64.9 Anemia type: unspecified type Hypertension I10 ONELI (acute kidney injury) N17.9 Pericardial effusion I31.39 Pleural effusion J90 (5) Anemia Anemia type: unspecified type Qualified Code(s): D64.9 - Anemia, unspecified
--- NOTE | 2024-09-25 12:21 | Billing Data ---
Date of Service September 25, 2024 Coding Level of Care Code 12931 SUB INP/OBS CARE
[2024-09-25] MEDS: carvediloL 6.25 MG TAB PO SCH (16:45)
--- NOTE | 2024-09-26 07:55 | Hospitalist Progress Note ---
Date of Service September 26, 2024 Assessment & Plan (1) Exertional angina: (2) Acute heart failure with mildly reduced ejection fraction (HFmrEF, 41-49%): (3) Type 2 diabetes mellitus: (4) Hypoxia: (5) ONEIL (acute kidney injury): (6) CHF (congestive heart failure): (7) Paroxysmal atrial fibrillation: Plan Pt is a 69 yo female with a past medical history of uncontrolled type 2 diabetes with neuropathy, paroxysmal a fib, HTN, and anxiety/depression that presents to the hospital on 09/22 for new onset chest pain and SOB found to have heart failure. 1) HFmrEF - no prior hx of known heart failure - echo 09/22 showed EF 45-50% and hypokinesis of mid to distal anterolateral and anterior argueta, mild pulm HTN - CXR showing pulmonary edema with moderate bilateral pleural effusions, BNP 658 on admission - Still has some pedal edema but improved compared to yesterday and now able to saturate well at room air; has some residual RAMIREZ but also improved from yesterday Given worsening ONEIL and improved volume status, will dc Lasix - Evaluated by cardiology: Added Carvedilol May consider perfusion study versus catheterization on Thursday 2) Anemia - patient complains of chills and recent weight loss over the past few months - anemia appears normochromic normocytic - Hgb 8.1 on admission; chronically low for at least the last few months - S/p transfusion of 1 unit of PRBC; 1 unit still on hold w/ transfusion threshold of Hgb 8 Hgb, 8.7 <-- 8.6, am labs pending - patient denies bleeding; folate (9.07), B12 (585), iron (45) levels WNL - reticulocyte count increased but reticulocyte index less than adequate (0.8 - 1.0), when it should be > 2.0 - Peripheral smear ordered: no evidence of myelodysplasia but evidence is present for mild Rouleaux and should consider SPEP - typed and crossed, consented for blood, given 1 U of PRBCs - May consider Heme/Onc referral to evaluate 3) Chest pain - Patient with chest pain on exertion, associated with dyspnea - History of paroxysmal A-fib; NSR today seen on telemetry - trop peaked at 20.2 - with echo showing new wall abnormalities suggests CAD as cause but pulmonary vascular congestion could also explain it - cardiology suggesting perfusion scan versus cath tomorrow 4) ONEIL - Cr (Mar, 2024) was WNL - Cr, 2.56 <-- 2.07 - Likely due to Lasix initiation during hospital stay - Continue to monitor AM BMP, follow Cr 5) Wound of right foot - patient has history of diabetic neuropathy 1. blister to 1st metatarsal, rested foot on wood burner 2. lateral malleolus wound, patient unsure of origin - Foot XR showing soft tissue swelling without acute osseous abnormality, possible soft tissue gas adjacent to lateral malleolus, CRP elevated, 1.39 - podiatry consulted per reccs of wound nurse - will cover with Unasyn for now -> eventual transition to Augmentin - if wounds worsen on current antibiotic regimen, can consider Zosyn plus daptomycin 6) Type 2 diabetes mellitus - on 14 units Tresiba along with Dexcom at home - A1C, 4.7 (A1C 15.9 in Mar, 2024) - Dexcom discontinued on admission; to run out overnight 7) Hypertension - mildly elevated on admission - Continue home amlodipine and hydralazine 8) Paroxysmal atrial fibrillation - Patient has not been taking her home Eliquis (unaware that she had to pick this up at the pharmacy) - EKG on admission showed NSR - Eliquis 5 mg bid 9) Hypoxia -- Resolved - suspected it was secondary to volume overload - now on room air, O2 Sat 93 10) Depression - continue sertraline VTE ppx: Eliquis Code status: Full codee FENGI: T2DM Carb-Consistent, Heart Healthy, Low Sodium diet Admission and Anticipated Discharge Date Admission Date: September 22, 2024 Supervising Physician Co-Signing Physician Notes ATTESTATION I also saw the patient and confirmed chavira portions of the history and exam. I agree with the impression and plan in the resident documentation, and as summarized below. Feeling well, eating lunch we I saw her this afternoon. Myocardial perfusion scan results are pending. EXAM 147/72, 60, 16 NAD CV RRR Lungs CTA with non labored respirations DATA Labs HgB 7.7 BUN/ Cr 46/2.56 IMPRESSION & PLAN Acute CHF with mildly reduced ejection fraction Exertional angina Paroxysmal atrial fibrillation Anemia ONEIL Appreciate cardiology consultation She is feeling better overall, suspect this is from diuresis and blood transfusion Creatinine trending up, likely secondary to diuresis Await results of perfusion study today CBC and BMP in AM Likely needs outpatient hematology evaluation Additional per resident documentation Subjective Patient is a 69 yo F w/ a PMHx of uncontrolled type 2 diabetes with neuropathy, paroxysmal AFib, HTN, and anxiety/depression that presented to the hospital on 09/22 for new onset chest pain and SOB found to have heart failure. I saw the patient this morning and Feeling much better after PRBC transfusion. Now able to breathe at room air. Dyspnea has resolved and RAMIREZ with ambulation to and from the bathroom has improved. Denies chest pain, fevers, chills, weakness, but endorses a baseline "chest tightness" that patient is attributing to anxiety. Patient felt anxious this morning after having been taken care of so much these last few days. Review of Systems Constitutional: no fever, no chills, no fatigue and no weakness Respiratory: + cough and + dyspnea; no chest congesti on, no pain on inspiration and no pain with cough Cardiovascular: + orthopnea and + edema; no chest pain, no palpitations and no lightheadedness Gastrointestinal: no abdominal pain, no nausea, no vomiting, no constipation and no diarrhea/loose stools Genitourinary: no dysuria, no difficulty urinating and no urinary frequency Neurologic: + numbness (in legs) Physical Exam Constitutional: WD/WN, vitals as above Respiratory: normal respiratory effort, lungs clear to auscultation Cardiovascular: RRR, no murmur, no edema Extremities: normal capillary refill and + pedal edema (mild b/l pedal edema) Gastrointestinal (Abdomen): normal bowel sounds, soft, nontender, no hep atosplenomegaly Psychiatric: A+Ox3, euthymic affect Results & Data Results & Data Vital Signs (Past 12 Hours) Vital Signs Temp Pulse Pulse Resp BP Pulse Ox O2 Del Method 09/26/24 02:44 36.6 C 62 18 169/90 H 93 Room Air 09/25/24 23:27 61 09/25/24 23:06 36.5 C 66 17 146/74 H 92 Room Air 09/25/24 20:17 36.6 C 65 18 154/82 H 91 Room Air 09/25/24 20:05 Room Air
[2024-09-26 09:14] LABS: Hematocrit (blood only) 24.5 % (37.0-47.0); Hemoglobin 8.7 g/dl (12.0-16.0); Mean Corpuscular Hemoglobin 31.6 pg (25.0-34.0); Mean Corpuscular Hgb Conc 35.5 g/dL (32.0-36.0); Mean Corpuscular Volume 89.1 fL (80.0-100.0); Mean Platelet Volume 9.1 fL (9.4-12.4); Platelet Count 161 K/uL (130-400); RDW Coefficient of Variation 14.6 % (11.5-14.5); RDW Standard Deviation 47.5 fL (36.4-46.3); Red Blood Count 2.75 M/uL (4.20-5.40); White Blood Count 6.34 K/ul (4.8-10.8)
[2024-09-26 09:35] LABS: Calcium 8.3 mg/dl (8.6-10.3); Potassium 3.7 mmol/L (3.5-5.1)
[2024-09-26] MEDS: REGADENOSON 0.4 MG/5 ML SYR IV ONE (15:36)
--- NOTE | 2024-09-26 15:50 | Electrocardiogram Report ---
Test Reason : Blood Pressure : */* mmHG Vent. Rate : 58 BPM Atrial Rate : 58 BPM P-R Int : 130 ms QRS Dur : 98 ms QT Int : 470 ms P-R-T Axes : -16 15 37 degrees QTcB Int : 461 ms Sinus bradycardia Otherwise normal ECG When compared with ECG of 22-Sep-2024 09:16, No significant change was found Confirmed by Adria Ryan [id number]) on 09/26/2024 3:49:50 PM Referred By: REFERRED SELF Confirmed By: Adria Ryan
--- NOTE | 2024-09-26 17:05 | Myocardial Perfusion Study ---
Date of Service September 26, 2024 Myocardial Perfusion Study [facility] Myocardial Perfusion Study Report LEXISCAN STRESS MYOCARDIAL PERFUSION IMAGING STUDY Indication: CHF and exertional chest discomfort Brief description: Rest portion-at 9:38 AM the patient was injected with 10.5 mCi of technetium 99m Cardiolite IV. 1 hour following injection, myocardial perfusion imaging was performed in multiple projections. Stress portion-baseline heart rate, blood pressure, and EKG were obtained. The same parameters were monitored continuously for 3 minutes infusion and 3 minutes recovery. They were intermittently recorded. Patient was infused with 0.4 mg Lexiscan IV followed immediately by injection of 31.5 mCi of technetium 99m Cardiolite IV. 30 minutes following injection, myocardial perfusion imaging was performed in multiple projections similar to those utilized for the rest por tion. Patient reported dyspnea and dizziness with infusion. Hemodynamic and electrocardiographic findings: 1. Baseline heart rate was 58 bpm and arpita to a maximum of 69 bpm with Lexiscan infusion. 2. Resting blood pressure was 136/81 mmHg and arpita to a maximum of 141/67 mmHg with Lexiscan infusion. 3. Baseline EKG demonstrated sinus bradycardia with occasional PAC and a Archer C or PVC. There were no diagnostic ischemic ST segment or T wave changes with Lexiscan infusion. No significant additional arrhythmia. Myocardial perfusion imaging findings: 1. Raw data analysis demonstrates dense breast attenuation laterally. This is an adequate quality study for interpretation. 2. Gated myocardial perfusion imaging demonstrates normal size LV, normal wall motion, and EF calculated at 57%. 3. There is a small in size (4% of myocardium), mild intensity almost entirely fixed MPI defect involving the distal lateral and inferior lateral myocardium. This is most consistent with breast attenuation artifact although a small infarct with minimal pepito-infarct ischemia cannot be excluded. 4. Study is considered low risk for ischemia. No prior study for comparison. [facility] Myocardial perfusion code Indication for Procedure (1) Chest pain: (2) CHF (congestive heart failure): Procedure Code Procedure 1: Myocardial Perfusion Codes: 61548 Cardiovascular Stress Test, multiple Procedure 2: Myocardial Perfusion Codes: 81672 Cardiovascular Stress Test, supervision only Procedure 3: Myocardial Perfusion Codes: 43621 Cardiovascular Stress Test, interpretation and report
--- NOTE | 2024-09-26 17:27 | Cardiology Progress Note ---
Date of Service September 26, 2024 Assessment & Plan (1) Chest pain: (2) CHF (congestive heart failure): Plan ASSESSMENT/PLAN: 1. Acute heart failure with mildly reduced EF: Improved. Monitoring renal function which appears to have stabilized but not improved. Volume status also stable. 2. Angina: She has an element of exertional chest discomfort. This appears to have resolved. Possibly related pulmonary vascular congestion. Her perfusion study was a low risk study. Not a great candidate for coronary angiography given her renal dysfunction. At this point I think we will simply provide continued risk factor modification. 3. Mitral regurgitation: Moderate. Will likely improve with diuresis. This can be monitored over time. 4. Cardiomyopathy: Mild. Possibly ischemic given the regional wall motion abnormalities. Also possibly related to poorly controlled hypertension. Carvedilol initiated. Will increase the dose as tolerated. She does not appear to be a good candidate for ALIDA/ARB/Entresto or spironolactone based on her degree of renal dysfunction. Will continue with the hydralazine and nitrates. Also in a category of patients with poor renal function who may not benefit from SGLT2 inhibitors. 5. Anemia: This appears to be related to poor Red cell production. Hemoglobin stable. Improved symptoms with transfusion. 6. Hypertension: Blood pressure has mostly been elevated but improved this morning. 7. Acute kidney injury: Stable but no improvement. 8. Paroxysmal atrial fibrillation: Sinus rhythm today. Continue systemic anticoagulation provided there are no contraindications. Despite renal dysfunction apixaban 5 mg twice daily is the appropriate dose. No evidence of active bleeding. 9. Pericardial effusion: Small and of of no hemodynamic significance. Can monitor with repeat imaging in the future. 10. Pleural effusions: Hopefully will improve with some diuresis. Chest exam benign today. Clinically she is doing quite well with the exception of her renal dysfunction. I do not think we will pursue a cardiac catheterization at this point given her low risk perfusion study. I think we will continue her current medical therapy and monitor her volume status. Admission and Anticipated Discharge Date Admission Date: September 22, 2024 Subjective This afternoon patient clinically feeling well. She did have some symptoms associated with Lexiscan administration, but those appear to have resolved. She was ambulatory around her room without limiting dyspnea and no recurrent chest pain. No dizziness or lightheadedness. Overall feeling much better. Review of Systems Review of Systems: Per HPI Physical Exam Physical Exam: Gen.: No acute distress. Alert and oriented. She answered all questions appropriately. HEENT: Anicteric sclera. Cardiac: Regular. Pulmonary: Normal respiratory effort. Extremities: 2+ radial pulses bilaterally. Mild nonpitting edema bilaterally. No cyanosis. Right great toe bandaged Psychiatric: Affect appears appropriate. Results & Data Vital Signs (Past 12 Hours) Vital Signs Temp Pulse Pulse Resp BP Pulse Ox Pulse Ox 09/26/24 15:48 60 09/26/24 15:16 36.3 C L 69 16 147/72 H 91 09/26/24 15:00 95 09/26/24 12:20 59 L 16 160/77 H 93 09/26/24 10:43 36.5 C 60 18 154/71 H 90 09/26/24 07:56 36.5 C 61 16 181/83 H 92 09/26/24 07:00 60 O2 Del Method O2 Del Method 09/26/24 15:48 09/26/24 15:16 Room Air 09/26/24 15:00 Room Air 09/26/24 12:20 Room Air 09/26/24 10:43 Room Air 09/26/24 07:56 Room Air 09/26/24 07:00 Laboratory Results Abnormal Lab Results 09/23/24 09/24/24 09/25/24 08:08 06:39 20:05 WBC RBC Hgb Hct MCV MCH MCHC RDW Std Deviation RDW Coeff of Abel Plt Count MPV Peripher Smr Path Cons Sodium Potassium Chloride Carbon Dioxide Anion Gap BUN Creatinine Est Cr Clr Drug Dosing eGFR BUN/Creatinine Ratio Glucose POC Glucose 170 H Calcium Crossmatch See Detail 09/26/24 09/26/24 09/26/24 07:16 08:49 12:19 WBC 6.34 RBC 2.75 L Hgb 8.7 L Hct 24.5 L MCV 89.1 MCH 31.6 MCHC 35.5 RDW Std Deviation 47.5 H RDW Coeff of Abel 14.6 H Plt Count 161 MPV 9.1 L Peripher Smr Path Cons Sodium 141 Potassium 3.7 Chloride 109 H Carbon Dioxide 23 Anion Gap 9 BUN 46 H Creatinine 2.56 H Est Cr Clr Drug Dosing 20.0 eGFR 19.99 BUN/Creatinine Ratio 18.0 Glucose 82 POC Glucose 85 108 H Calcium 8.3 L Crossmatch 09/26/24 15:58 WBC RBC Hgb Hct MCV MCH MCHC RDW Std Deviation RDW Coeff of Abel Plt Count MPV Peripher Smr Path Cons Sodium Potassium Chloride Carbon Dioxide Anion Gap BUN Creatinine Est Cr Clr Drug Dosing eGFR BUN/Creatinine Ratio Glucose POC Glucose 192 H Calcium Crossmatch PG Care Time/CCT Total # of Minutes Spent Total Time Spent with Patient: Total time spent is greater than 50% in coordination of care (as documented) at patient's floor/unit and/or counseling patient: Coding Level of Care Code 61894 SUB INP/OBS CARE 2/35MIN Diagnoses Chest pain R07.9 CHF (congestive heart failure) I50.9
--- NOTE | 2024-09-26 22:01 | Podiatry Consultation ---
Date of Consultation September 26, 2024 Assessment & Plan (1) Type 2 diabetes mellitus: Diabetes mellitus complication status: with hyperglycemia Diabetes mellitus shelter insulin use: with shelter use Qualified Code(s): E11.65 - Type 2 diabetes mellitus with hyperglycemia; Z79.4 - residential (current) use of insulin (2) Blister: (3) Wound of right foot: (4) Type II diabetes mellitus with neurological manifestations, uncontrolled: (5) Burn of foot, right, second degree: Encounter type: initial encounter Qualified Code(s): T25.221A - Burn of second degree of right foot, initial encounter Plan - Pt examined and evaluated. - Wound/blister debrided at bedside. Deeper cultures obtained and sent for aerobic/anaerobic testing. - Dressed with optifoam. Can benefit from wound care nrusing consult. - For now, would recommend bacitracin ointment and Optifoam gauze daily. - No deeper infection/involvement suspected. No further intervention on our end, inpatient. - Will sign off. Happy to follow-up outpatient after discharge. History of Present Illness Reason for Consultation: Right foot blister/cellulitis Attending Physician: Andrew Carrillo DO History of Present Illness Patient seen at bedside. Admits that prior to admission she sustained a burn to her foot. Allergies Allergy/AdvReac Type Severity Reaction Status Date / Time No Known Allergies Allergy Verified 08/24/24 12:50 Home Medications Medication Instructions Recorded Confirmed Type lancets 33 gauge (OneTouch Delica #100 ea 05/28/23 08/24/24 Rx Plus Lancet) aspirin 81 mg tablet,delayed 81 mg PO QAM #30 tabs 03/18/24 09/22/24 Rx release OneTouch Verio test strips (blood #100 ea 03/22/24 08/24/24 Rx sugar diagnostic) blood sugar diagnostic (Accu-Chek #100 ea 03/24/24 08/24/24 Rx Elvira Plus test strips) blood-glucose meter,continuous #1 ea 03/30/24 08/24/24 Rx (Dexcom G7 Director Of Cardiology) blood-glucose sensor (Dexcom G7 #4 ea 04/25/24 08/24/24 Rx Sensor device) insulin degludec 100 unit/mL (3 14 unit subcut UD 08/15/24 09/22/24 History mL) subcutaneous pen (Tresiba FlexTouch U-100 insulin) sertraline 50 mg tablet 50 mg PO DAILY 08/15/24 09/22/24 History hydralazine 50 mg tablet 50 mg PO TID #100 tabs 08/17/24 09/22/24 Rx amlodipine 10 mg tablet 10 mg PO DAILY #30 tabs 08/24/24 09/22/24 Rx pen needle, diabetic 32 gauge x #100 ea 09/12/24 Rx 532" (BD Ultra-Fine Snow Pen Needle) Patient History Medical History Bilateral ankle joint pain Type 2 diabetes mellitus, uncontrolled Proteinuria Hypokalemia Diarrhea Fall Hypomagnesemia Acute UTI Weakness Acute UTI Sepsis Prolonged QT interval Non-convulsive status epilepticus Pulmonary edema Hyperosmolar hyperglycemic state (HHS) Acute metabolic encephalopathy Severe sepsis Complicated UTI (urinary tract infection) Lactic acidosis HHS (hypothenar hammer syndrome) Elevated troponin Unresponsive state DKA (diabetic ketoacidosis) Sepsis Hyponatremia Hyperlipidemia Surgical History History of lumbar surgery L4-L5 H/O total hysterectomy Family History Father Diabetes Prostate cancer Grandmother Diabetes Aunt Colorectal cancer Brother Stroke Denies family history of Ovarian cancer Myocardial infarction Breast cancer Social History Smoking Status: Never smoker Tobacco Type: E-cigarettes / Vaping Second Hand Exposure: No; Do You Dip or Chew Tobacco: No; Hx Alcohol Use: No Hx Substance Use: No Preferred Language: Pakistani Communication Ability: Effective Communication Ability Comment: Patient reports she has trouble seeing Visual Impairment: No Limitations Hearing Ability: Normal Instructional Materials Director Required: No Beliefs That Will Affect Care: None marital status: Current Living Situation: Spouse Current Living Situation Comment: Lives with spouse current occupational status: retired 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 How many Children do You have: 3 Feels Safe at Home: Yes Childhood Exposure to Second-Hand Smoke: No Diet: regular Diet Comment: added more salads to diet. caffeine: Yes (soda 3 x week) during the past year weight has: remained stable Dental Care, Regularly: No Physical Activity Frequency: Does not Exercise Seatbelt Use: always Sunscreen Use: No Do you think of yourself as: straight/heterosexual Gender Identity: Female Assistive Devices: Cane and Walker Results & Data Vital Signs (Past 12 Hours) Vital Signs Temp Pulse Pulse Resp BP Pulse Ox Pulse Ox 09/26/24 21:13 09/26/24 19:39 36.6 C 64 18 165/83 H 93 09/26/24 15:48 60 09/26/24 15:16 36.3 C L 69 16 147/72 H 91 09/26/24 15:00 95 09/26/24 12:20 59 L 16 160/77 H 93 09/26/24 10:43 36.5 C 60 18 154/71 H 90 O2 Del Method O2 Del Method 09/26/24 21:13 Room Air 09/26/24 19:39 Room Air 09/26/24 15:48 09/26/24 15:16 Room Air 09/26/24 15:00 Room Air 09/26/24 12:20 Room Air 09/26/24 10:43 Room Air
--- NOTE | 2024-09-26 23:53 | Podiatry Progress Note ---
Date of Service September 26, 2024 Assessment & Plan (1) Burn of foot, right, second degree: (2) Type 2 diabetes mellitus: (3) Wound of right foot: (4) Type II diabetes mellitus with neurological manifestations, uncontrolled: Plan See Assessment & Plan from consult note of this date. Admission and Anticipated Discharge Date Admission Date: September 22, 2024 Subjective Addendum to prior Podiatry Consult note on this day. Prior note signed before PE completed. Review of Systems Review of Systems: All systems reviewed & are unremarkable except as noted in HPI & below Constitutional: no fever, no chills and no fatigue Eyes: no problem reported Ear, Nose, Mouth, Throat: no problem reported Respiratory: no problem reported Cardiovascular: + edema; no problem reported Gastrointestinal: no nausea, no vomiting and no problem reported Genitourinary: no problem reported Musculoskeletal: no problem reported Integumentary: + skin ulcer, + wounds and + erythema Neurologic: + loss of sensation, + numbness and + pa resthesia; no generalized weakness Psychiatric: no problem reported Physical Exam Physical Exam: RLE Focused exam: DP/PT pulses diminished. CFT brisk to digits. No necrosis/gangrene. Superficial fluid filled blisters noted to right hallux and dorsal 1st MTPJ. Proximal blister appears cloudier in appearance, though upon drainage, the cloudiness is due to the thickened skin rather than the underlying fluid. No purulence expressed; fluid is serous, rudy, clear. Cultures obtained from under this deroofed blister. No extension to subcutaneous tissue. No ascending cellulitis. No deep probing to bone. Constitutional: WD/WN, vitals as above + ill appearing Eyes: PERRL, conjunctivae normal, anicteric sclerae ENMT: external ear and nose normal, oropharynx normal Neck: trachea midline, no thyromegaly normal visual inspection Respiratory: normal respiratory effort; no respiratory distress Cardiovascular: Rate/Rhythm: regular rate and regular rhythm Chest (Breasts): Chest: normal inspection of chest Gastrointestinal (Abdomen): Inspection/Auscultation: abdomen normal to inspection Percussion/Palpation: + abdomen tender and abdomen soft Musculoskeletal: no cyanosis or clubbing, extremities motor strength 5/5 Head/Neck/Chest: normocephalic and head atraumatic Extremities: extremities normal to inspection Skin: + wound, + skin atrophy, + dry skin, + e rythema, + fluctulance and + nails dystrophic Neurologic: awake; no focal motor deficits Psychiatric: A+Ox3, euthymic affect Results & Data Results & Data Vital Signs (Past 12 Hours) Vital Signs Temp Pulse Pulse Pulse Resp BP Pulse Ox 09/26/24 23:25 63 09/26/24 23:03 36.8 C 63 19 150/71 H 93 09/26/24 21:13 09/26/24 19:39 36.6 C 64 18 165/83 H 93 09/26/24 15:48 60 09/26/24 15:16 36.3 C L 69 16 147/72 H 91 09/26/24 15:00 09/26/24 12:20 59 L 16 160/77 H 93 Pulse Ox O2 Del Method O2 Del Method 09/26/24 23:25 09/26/24 23:03 Room Air 09/26/24 21:13 Room Air 09/26/24 19:39 Room Air 09/26/24 15:48 09/26/24 15:16 Room Air 09/26/24 15:00 95 Room Air 09/26/24 12:20 Room Air (1) Burn of foot, right, second degree Encounter type: initial encounter Qualified Code(s): T25.221A - Burn of second degree of right foot, initial encounter (2) Type 2 diabetes mellitus 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
--- NOTE | 2024-09-27 07:50 | Hospitalist Progress Note ---
Date of Service September 27, 2024 Assessment & Plan (1) Exertional angina: (2) Acute heart failure with mildly reduced ejection fraction (HFmrEF, 41-49%): (3) Type 2 diabetes mellitus: (4) Hypoxia: (5) ONEIL (acute kidney injury): (6) CHF (congestive heart failure): (7) Paroxysmal atrial fibrillation: Plan Pt is a 69 yo female with a past medical history of uncontrolled type 2 diabetes with neuropathy, paroxysmal a fib, HTN, and anxiety/depression that presents to the hospital on 09/22 for new onset chest pain and SOB found to have heart failure. 1) HFmrEF - no prior hx of known heart failure - echo 09/22 showed EF 45-50% and hypokinesis of mid to distal anterolateral and anterior argueta, mild pulm HTN - CXR showing pulmonary edema with moderate bilateral pleural effusions, BNP 658 on admission - Still has some pedal edema but improved compared to yesterday and now able to saturate well at room air; has some residual RAMIREZ but also improved from yesterday Given worsening ONEIL and improved volume status, will Stevenix was discontin ued - Evaluated by cardiology: Added Carvedilol Performed perfusion study 2) Anemia - patient complains of chills and recent weight loss over the past few months - anemia appears normochromic normocytic - Hgb 8.1 on admission; chronically low for at least the last few months - S/p transfusion of 1 unit of PRBC; 1 unit still on hold w/ transfusion threshold of Hgb 8 Hgb, 8.8 <-- 8.6, am labs pending - patient denies bleeding; folate (9.07), B12 (585), iron (45) levels WNL - reticulocyte count increased but reticulocyte index less than adequate (0.8 - 1.0), when it should be > 2.0 - Peripheral smear ordered: no evidence of myelodysplasia but evidence is present for mild Rouleaux and should consider SPEP - typed and crossed, consented for blood, given 1 U of PRBCs - Will consider Heme/Onc referral as outpatient to follow anemia 3) Chest pain - Patient with chest pain on exertion, associated with dyspnea - History of paroxysmal A-fib; - trop peaked at 20.2 - with echo showing new wall abnormalities suggests CAD as cause but pulmonary vascular congestion could also explain it - Myocardial perfusion study considered low risk for anemia. Gated myocardial perfusion imaging demonstrates normal size LV, normal wall motion, and EF calculated at 57%. There is a small in size (4% of myocardium), mild intensity almost entirely fixed MPI defect involving the distal lateral and inferior lateral myocardium. This is most consistent with breast attenuation artifact although a small infarct with minimal pepito-infarct ischemia cannot be excluded. 4) ONEIL - Cr (Mar, 2024) was WNL - Cr, 2.41 <-- 2.56 <-- 2.07 - Likely due to Lasix initiation during hospital stay - Continue to monitor AM BMP, follow Cr 5) Wound of right foot - patient has history of diabetic neuropathy 1. blister to 1st metatarsal, rested foot on wood burner 2. lateral malleolus wound, patient unsure of origin - Foot XR showing soft tissue swelling without acute osseous abnormality, possible soft tissue gas adjacent to lateral malleolus, CRP elevated, 1.39 - podiatry consulted per reccs of wound nurse - will cover with Unasyn for now -> eventual transition to Augmentin as outpatient if patient doesn't finish course prior to discharge - if wounds worsen on current antibiotic regimen, can consider Zosyn plus daptomycin 6) Type 2 diabetes mellitus - on 14 units Tresiba along with Dexcom at home - A1C, 4.7 (A1C 15.9 in Mar, 2024) - Dexcom discontinued on admission; to run out overnight 7) Hypertension - mildly elevated on admission - Continue home amlodipine and hydralazine 8) Paroxysmal atrial fibrillation - Patient has not been taking her home Eliquis (unaware that she had to pick this up at the pharmacy) - EKG on admission showed NSR - Eliquis 5 mg bid 9) Hypoxia -- Resolved - suspected it was secondary to volume overload - now on room air, O2 Sat 93 10) Depression - continue sertraline VTE ppx: Eliquis Code status: Full codee COOPER: T2DM Carb-Consistent, Heart Healthy, Low Sodium diet Admission and Anticipated Discharge Date Admission Date: September 22, 2024 Supervising Physician Co-Signing Physician Notes ATTESTATION I also saw the patient with the resident and confirmed chavira portions of the history and exam. I agree with the impression and plan in the resident documentation, and as summarized below. Feeling better today - she notes more energy. Eating lunch. Grandson visiting at bed site. EXAM 156/76, 63, 18, 36.5, 94% NAD CV RRR Lungs CTA with non labored respirations DATA Labs HgB 8.8 BUN/ Cr 46/2.41 IMPRESSION & PLAN Acute CHF with mildly reduced ejection fraction Exertional angina Paroxysmal atrial fibrillation Anemia ONEIL Appreciate cardiology consultation Continues to feel better overall, suspect this is from diuresis and blood transfusion Creatinine slightly improved today; ONEIL likely secondary to diuresis, would like to see greater trend of improvement before discharge PT/OT to evaluate; sounds like she has good family support at home if needed Will need hematology consult as outpatient CBC and BMP in AM Additional per resident documentation Review of Systems Review of Systems: Per HPI. Constitutional: no fever, no chills, no fatigue and no weakness Respiratory: + cough and + dyspnea; no chest congesti on, no pain on inspirati on and no pain with cough Cardiovascular: + orthopnea and + edema; no chest pain, no palpitations and no lightheadedness Gastrointestinal: no abdominal pain, no nausea, no vomiting, no constipation and no diarrhea/loose stools Genitourinary: no dysuria, no difficulty urinating and no urinary frequency Neurologic: + numbness (in legs) Physical Exam Constitutional: WD/WN, vitals as above Respiratory: normal respiratory effort, lungs clear to auscultation Cardiovascular: RRR, no murmur, no edema Extremities: normal capillary refill and + pedal edema (mild b/l pedal edema) Gastrointestinal (Abdomen): normal bowel sounds, soft, nontender, no hepatosplenomegaly Psychiatric: A+Ox3, euthymic affect Results & Data Results & Data Vital Signs (Past 12 Hours) Vital Signs Temp Pulse Pulse Resp BP BP Pulse Ox 09/27/24 03:08 36.8 C 68 19 167/69 H 92 09/26/24 23:25 63 09/26/24 23:03 36.8 C 63 19 150/71 H 93 09/26/24 21:13 O2 Del Method 09/27/24 03:08 Room Air 09/26/24 23:25 09/26/24 23:03 Room Air 09/26/24 21:13 Room Air Laboratory Results Myocardial Perfusion Study Blk Myocardial Perfusion Study Report LEXISCAN STRESS MYOCARDIAL PERFUSION IMAGING STUDY Indication: CHF and exertional chest discomfort Brief description: Rest portion-at 9:38 AM the patient was injected with 10.5 mCi of technetium 99m Cardiolite IV. 1 hour following injection, myocardial perfusion imaging was performed in multiple projections. Stress portion-baseline heart rate, blood pressure, and EKG were obtained. The same parameters were monitored continuously for 3 minutes infusion and 3 minutes recovery. They were intermittently recorded. Patient was infused with 0.4 mg Lexiscan IV followed immediately by injection of 31.5 mCi of technetium 99m Cardiolite IV. 30 minutes following injection, myocardial perfusion imaging was performed in multiple projections similar to those utilized for the rest portion. Patient reported dyspnea and dizziness with infusion. Hemodynamic and electrocardiographic findings: 1. Baseline heart rate was 58 bpm and arpita to a maximum of 69 bpm with Lexiscan infusion. 2. Resting blood pressure was 136/81 mmHg and arpita to a maximum of 141/67 mmHg with Lexiscan infusion. 3. Baseline EKG demonstrated sinus bradycardia with occasional PAC and a Archer C or PVC. There were no diagnostic ischemic ST segment or T wave changes with Lexiscan infusion. No significant additional arrhythmia. Myocardial perfusion imaging findings: 1. Raw data analysis demonstrates dense breast attenuation laterally. This is an adequate quality study for interpretation. 2. Gated myocardial perfusion imaging demonstrates normal size LV, normal wall motion, and EF calculated at 57%. 3. There is a small in size (4% of myocardium), mild intensity almost entirely fixed MPI defect involving the distal lateral and inferior lateral myocardium. This is most consistent with breast attenuation artifact although a small infarct with minimal pepito-infarct ischemia cannot be excluded. 4. Study is considered low risk for ischemia. No prior study for comparison. Diagnostic Findings CBC 09/27/24 Range/Units 07:18 WBC 7.65 (4.8-10.8) K/ul RBC 2.76 L (4.20-5.40) M/uL Hgb 8.8 L (12.0-16.0) g/dl Hct 24.6 L (37.0-47.0) % Plt Count 192 (130-400) K/uL Comprehensive Metabolic Panel 09/27/24 Range/Units 07:18 Sodium 141 (136-145) mmol/L Potassium 3.7 (3.5-5.1) mmol/L Chloride 110 H (98-107) mmol/L Carbon Dioxide 22 (21-32) mmol/L BUN 46 H (6-23) mg/dl Creatinine 2.41 H (0.6-1.2) mg/dl Glucose 119 H (70-99(Fasting)) mg/dl Calcium 8.4 L (8.6-10.3) mg/dl Intake and Output 09/27/24 09/27/24 09/27/24 06:59 14:59 22:59 Intake Total 100 / 500 580 / 580 Output Total 300 / 601 300 / 300 Balance -200 / -101 580 / 280 -300 / 280 Intake: IV 100 / 200 100 / 100 Ampicillin/Sulbactam Sod 3,000 100 / 200 100 / 100 mg In 100 ml @ 200 mls/hr IV Q12H [facility] Rx#:[id number] Oral 480 / 480 Output: Urine 300 / 600 300 / 300 Other: Weight 69.6 kg 69.6 kg Weight Measurement Method Built in [facility] Patient Weight 09/28/24 06:59 Weight Resident Activity Tracking Resident Involvement: Resident Care Provided Care Provided: Adult Hospital Medicine (3) Type 2 diabetes mellitus Diabetes mellitus complication status: with hyperglycemia 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
[2024-09-27 08:33] LABS: Hematocrit (blood only) 24.6 % (37.0-47.0); Hemoglobin 8.8 g/dl (12.0-16.0); Mean Corpuscular Hemoglobin 31.9 pg (25.0-34.0); Mean Corpuscular Hgb Conc 35.8 g/dL (32.0-36.0); Mean Corpuscular Volume 89.1 fL (80.0-100.0); Mean Platelet Volume 9.4 fL (9.4-12.4); Platelet Count 192 K/uL (130-400); RDW Coefficient of Variation 14.8 % (11.5-14.5); RDW Standard Deviation 47.6 fL (36.4-46.3); Red Blood Count 2.76 M/uL (4.20-5.40); White Blood Count 7.65 K/ul (4.8-10.8)
[2024-09-27 08:40] LABS: BUN Creatinine Ratio 19.1 (10-20); Calcium 8.4 mg/dl (8.6-10.3); Creatinine Clr Calc Pharmacy 21.2 ml/min; Potassium 3.7 mmol/L (3.5-5.1)
[2024-09-27 16:14] LABS: Magnesium 2.2 mg/dl (1.7-2.4)
[2024-09-27] MEDS: POTASSIUM CHLORIDE CRTAB 20 MEQ TABCR PO STA (16:22)
[2024-09-28 07:00] LABS: Hemoglobin 8.5 g/dl (12.0-16.0); Mean Corpuscular Hemoglobin 31.6 pg (25.0-34.0); Mean Corpuscular Hgb Conc 35.4 g/dL (32.0-36.0); Mean Corpuscular Volume 89.2 fL (80.0-100.0); Mean Platelet Volume 9.4 fL (9.4-12.4); Platelet Count 181 K/uL (130-400); RDW Coefficient of Variation 14.9 % (11.5-14.5); RDW Standard Deviation 48.9 fL (36.4-46.3); Red Blood Count 2.69 M/uL (4.20-5.40)
[2024-09-28 07:26] LABS: BUN Creatinine Ratio 21.8 (10-20); Calcium 8.1 mg/dl (8.6-10.3); Creatinine Clr Calc Pharmacy 21.5 ml/min
[2024-09-28 11:03] VITALS: O2SAT 94
--- NOTE | 2024-09-28 15:04 | Cardiology Progress Note ---
Date of Service September 28, 2024 Assessment & Plan (1) Chest pain: (2) CHF (congestive heart failure): Plan ASSESSMENT/PLAN: 1. Acute heart failure with mildly reduced EF: Improved. Monitoring renal function which appears to have stabilized but not improved. Volume status also stable. 2. Angina: She has an element of exertional chest discomfort. Perfusion imaging did not demonstrate a large area of ischemia or infarct. Likely some breast attenuation. At this point I think her symptoms are most likely related to pulmonary vascular congestion. 3. Mitral regurgitation: Moderate. Will likely improve with diuresis. This can be monitored over time. 4. Cardiomyopathy: Mild. Continue beta-blockade, hydralazine and nitrates. 5. Anemia: This appears to be related to poor Red cell production. Hemoglobin stable. Improved symptoms with transfusion. 6. Hypertension: Blood pressure has mostly been elevated 7. Acute kidney injury: Stable but no improvement. 8. Paroxysmal atrial fibrillation: Sinus rhythm today. Continue systemic anticoagulation provided there are no contraindications. Despite renal dysfunction apixaban 5 mg twice daily is the appropriate dose. No evidence of active bleeding. 9. Pericardial effusion: Small and of of no hemodynamic significance. Can monitor with repeat imaging in the future. 10. Pleural effusions: Hopefully will improve with some diuresis. Chest exam benign today. I think she would be safe for discharge on her current medical regimen which includes carvedilol, isosorbide mononitrate, hydralazine, apixaban and low-dose aspirin. She can follow-up in our [facility] office for additional recommend ations. Admission and Anticipated Discharge Date Admission Date: September 22, 2024 Subjective This afternoon the patient was feeling well. She had been ambulatory around her room with a few symptoms. Minimal dyspnea. Very mild symptoms of chest discomfort on occasion, much improved since admission. No dizziness or lightheadedness. Some mild lower extremity edema especially when her legs have been dependent. Review of Systems Review of Systems: Per HPI Physical Exam Physical Exam: Gen.: No acute distress. Alert and oriented. She answered all questions appropriately. HEENT: Anicteric sclera. Cardiac: Regular. No murmurs. Pulmonary: Normal respiratory effort. No rales. Clear to auscultation. Extremities: 2+ radial pulses bilaterally. Mild nonpitting edema bilaterally. No cyanosis. Psychiatric: Affect appears appropriate. Results & Data Vital Signs (Past 12 Hours) Vital Signs Temp Pulse Resp BP Pulse Ox O2 Del Method 09/28/24 11:02 36.3 C L 58 L 18 156/80 H 94 Room Air 09/28/24 07:36 36.3 C L 68 18 188/91 H 92 Room Air 09/28/24 03:12 36.4 C L 60 18 168/83 H 92 Room Air Laboratory Results Abnormal Lab Results 09/27/24 09/27/24 09/27/24 07:18 15:54 19:55 WBC RBC Hgb Hct MCV MCH MCHC RDW Std Deviation RDW Coeff of Abel Plt Count MPV Sodium Potassium Chloride Carbon Dioxide Anion Gap BUN Creatinine Est Cr Clr Drug Dosing eGFR BUN/Creatinine Ratio Glucose POC Glucose 142 H 119 H Calcium Magnesium 2.2 09/28/24 09/28/24 09/28/24 06:15 07:33 10:58 WBC 6.50 RBC 2.69 L Hgb 8.5 L Hct 24.0 L MCV 89.2 MCH 31.6 MCHC 35.4 RDW Std Deviation 48.9 H RDW Coeff of Abel 14.9 H Plt Count 181 MPV 9.4 Sodium 141 Potassium 4.0 Chloride 110 H Carbon Dioxide 21 Anion Gap 10 BUN 52 H Creatinine 2.38 H Est Cr Clr Drug Dosing 21.5 eGFR 21.81 BUN/Creatinine Ratio 21.8 H Glucose 97 POC Glucose 105 H 127 H Calcium 8.1 L Magnesium PG Care Time/CCT Total # of Minutes Spent Total Time Spent with Patient: Total time spent is greater than 50% in coordination of care (as documented) at patient's floor/unit and/or counseling patient: Coding Level of Care Code 47106 SUB INP/OBS CARE 2/35MIN Diagnoses Chest pain R07.9 CHF (congestive heart failure) I50.9
[2024-09-28 15:59] VITALS: RESP 19; TEMP 99
[2024-09-28 16:48] LABS: Hematocrit (blood only) 24.5 % (37.0-47.0); Hemoglobin 8.8 g/dl (12.0-16.0)
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
[2024-09-28 18:35] VITALS: BP 151/76; PULSE 61
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
[2024-09-30 08:07] LABS: Albumin 3.1 g/dL (3.8-4.8); Alpha 1 Globulin 0.3 g/dL (0.2-0.3); Alpha 2 Globulin 0.8 g/dL (0.5-0.9); Beta-1-Globulin 0.5 g/dL (0.4-0.6); Beta-2-Globulin 0.3 g/dL (0.2-0.5); Gamma Globulin 0.4 g/dL (0.8-1.7); Monoclonal Protein Band 1 DNR g/dL (NONE DETECTED); Monoclonal Protein Band 2 DNR g/dL (NONE DETECTED); Monoclonal Protein Band 3 DNR g/dL (NONE DETECTED); Total Protein 5.3 g/dL (6.1-8.1)
== END 2024-09-28 19:09 | disposition home or self-care (01) | DRG 291 ==
LOC: ED 09:00 → SUATTDRO 13:48 → 2S 13:48

== ENCOUNTER 2024-10-03 11:14 | Observation (INO) ==
[2024-10-03 11:53] LABS: Basophils # (auto) 0.06 K/uL (0.00-0.20); Basophils % (auto) 0.8 %; Eosinophils # (auto) 0.25 K/uL (0.00-0.50); Eosinophils % (auto) 3.4 %; Hematocrit (blood only) 26.1 % (37.0-47.0); Hemoglobin 9.2 g/dl (12.0-16.0); Immature Granulocytes # (auto) 0.04 K/uL (0.01-0.20); Immature Granulocytes % (auto) 0.6 %; Lymphocytes # (auto) 1.21 K/uL (1.20-3.40); Lymphocytes % (auto) 16.6 %; Mean Corpuscular Hemoglobin 31.7 pg (25.0-34.0); Mean Corpuscular Hgb Conc 35.2 g/dL (32.0-36.0); Mean Platelet Volume 9.4 fL (9.4-12.4); Monocytes # (auto) 0.62 K/uL (0.11-0.59); Monocytes % (auto) 8.5 %; Neutrophils # (auto) 5.09 K/uL (1.40-6.50); Neutrophils % (auto) 70.1 %; Platelet Count 202 K/uL (130-400); RDW Coefficient of Variation 14.6 % (11.5-14.5); RDW Standard Deviation 48.1 fL (36.4-46.3); White Blood Count 7.27 K/ul (4.8-10.8)
[2024-10-03 12:14] LABS: Albumin Globulin Ratio 1.5 (0.9-2); Albumin Level 3.5 gm/dl (3.4-5.0); BUN Creatinine Ratio 22.3 (10-20); Bilirubin,Total 0.8 mg/dl (0.2-1.0); Calcium 8.9 mg/dl (8.6-10.3); Creatinine Clr Calc Pharmacy 25.4 ml/min; Globulin 2.3 gm/dl (2.5-4.0); Magnesium 2.5 mg/dl (1.7-2.4); Total Protein 5.8 gm/dl (6.0-8.3)
--- NOTE | 2024-10-03 12:15 | XRay Report ---
XR chest 1V portable CLINICAL HISTORY: Chest pain, nonspecific COMPARISON STUDY: Chest radiograph September 22, 2024. FINDINGS: There is no pneumothorax. Cardiomegaly is again noted. Pulmonary edema has slightly improve d. Moderate bilateral pleural effusions, right larger than left, are again noted. The right pleural e ffusion has increased. There are associated bibasilar opacities. IMPRESSION: 1. Cardiomegaly. Pulmonary edema, slightly decreased compared to prior exam. 2. Moderate bilateral pleural effusions right larger than left. The right pleural effusion has increa sed in size since prior exam. Associated bibasilar opacities. ACT 112: Negative or not required by law. Electronically signed by: Roland Swan M.D. 10/03/2024 12:14 PM
[2024-10-03 12:20] LABS: Troponin I High Sensitivity 12.1 pg/ml (0-14)
[2024-10-03 12:21] LABS: Prothrombin Time 10.9 Seconds (9.0-12.0)
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
[2024-10-03] MEDS: FUROSEMIDE INJ 20 MG/2 ML VIAL IV STA (12:34)
--- NOTE | 2024-10-03 12:54 | History & Physical Report ---
Date of Service October 03, 2024 Assessment & Plan (1) Acute heart failure with mildly reduced ejection fraction (HFmrEF, 41-49%): Plan: suspect acute exacerbation due to diet had Thanksgiving dinner recently newly diagnosed on recent hospitalization patient with on exertion, mild cough, bilateral lower extremity edema - weight has increased about 5 kg since lowest weight during recent hospitalization - Echo 09/22 - mildly reduced systolic function, EF 45 to 50%, hypokinesis of mid to distal anterior lateral and anterior argueta, moderate LVH, moderate MR, mild pulmonary hypertension, small pericardial effusion - CXR showing cardiomegaly with pulmonary edema, moderate bilateral pleural effusions R>L (increase since previous XR) - BNP decreased 658 -> 514 Patient was on 40 IV Lasix twice daily during previous admission with ~1.5L I&O deficit. Patient was not continued on Lasix on discharge due to an ONEIL, although patient will benefit from continued diuresis at this time. Will resume previous Lasix dose and monitor renal function. - Heart healthy, low-sodium, fluid restricted diet - diuresis with Lasix 40mg IV BID - Strict I&O monitoring - Daily weights - ada stockings, promote leg elevation, and frequent movement - daily BMP and Mg with diuretic (2) Nephrotic range proteinuria: Plan: Suspect secondary to DM and HTN ONEIL improved from previous admission Follows with nephrology outpatient - does have chronic proteinuria likely related to DKD - mentioned in March to discontinue amlodipine, however patient still taking - mention to start Lasix 20 Mg daily, however patient never began - Cr 2.20 on admission - Patient will benefit from continued diuretic use given above - Protein/Cr ratio 4.7, urine protein 206.8 - trend renal function - once euvolemic and renal function improves, can consider restarting losartan and discontinuing hydralazine - patient unsure of when she stopped taking losartan; losartan last filled 05/30 - 90 day supply Discussed protein/creatinine ratio with patient, recommended nephrology follow- up to find potential cause of proteinuria, including but not limited to multiple myeloma. Patient declined. (3) Burn of foot, right, second degree: Plan: patient with history of diabetic neuropathy Improving, completed course of antibiotics during previous hospitalization - daily dressing changes as per podiatry recommendations during previous hospitalization (4) History of angina: Plan: patient denies chest pain on admission Was evaluated by cardiology during recent hospitalization due to exertional chest pain - perfusion imaging did not show large area of ischemia or infarct - EKG sinus bradycardia, no signs of ischemic changes - troponin negative, 12.1 - continue isosorbide mononitrate and carvedilol (5) Type 2 diabetes mellitus: Plan: Controlled on insulin at home - Most recent A1C 4.7 - continue home 14 units Lantus QAM - SSI with target BSG range 110-140mg/dL, CF 25, carb ratio 15 - T2DM diet - BSG ACHS if eating, q6h if npo Plan Chronic stable diagnoses: depression - continue sertraline anemia - continue iron supplement, follow up with heme/onc out pt paroxysmal A-fib - continue Eliquis HTN - continue hydralazine and amlodipine VTE ppx: Eliquis Diet: heart healthy, low sodium, DM2, fluid restriction 1500 mL Code status: DNI/DNI Dispo: med/tele Admission and Anticipated Discharge Date Admission Date: 10/03/24 History of Present Illness Chief Complaint: dyspnea Primary Care Provider: MARNI Kirk Patient is a 69-year-old female with a past medical history of HFmrEF, anemia, diabetic neuropathy, paroxysmal A-fib, hypertension. Patient was recently discharged on 09/28 with newly diagnosed heart failure, she was on IV Lasix during hospitalization which was discontinued on discharge due to an ONEIL. Patient was also on Unasyn at this time for a foot wound, possibly contributing to renal function. She does have a history of proteinuria. She presents today d ue to dyspnea on exertion; She stated that it has been getting worse since recent discharge and became worse after she had Thanksgiving dinner. She denies orthopnea although has not been laying down since discharge, sits in her recliner chair. She has a mild dry cough along with chest heaviness. She also has worsening bilateral lower extremity edema, she states sometimes it goes up to her thighs. She stated that she has been taking her medication she was discharged on, although does not let her know what her medications are. She stated that her would know when he was not present in room on exam. She was treated for a right foot wound during previous hospitalization due to resting her foot on a wood burner. She stated that she did take her outpatient antibiotics, although has not changed her bandages since recent discharge 09/28. She stated that her foot is not painful, it appears to be improving. She endorses mild constipation, likely secondary to iron supplement. Patient denies fever, chills, headache, dizziness, lightheadedness, chest pain, abdominal pain, nausea, vomiting, diarrhea, dysuria, hematuria. Patient reassessed at 1841, discussed proteinuria. Recommended that the patient be reevaluated by nephrology and workup to find the cause of her kidney disease, including but not limited to multiple myeloma workup. Patient declined. Allergies Allergy/AdvReac Type Severity Reaction Status Date / Time No Known Allergies Allergy Verified 10/03/24 13:39 Home Medications Medication Instructions Recorded Confirmed Type lancets 33 gauge (OneTouch Delica #100 ea 05/28/23 08/24/24 Rx Plus Lancet) aspirin 81 mg tablet,delayed 81 mg PO QAM #30 tabs 03/18/24 10/03/24 Rx release OneTouch Verio test strips (blood #100 ea 03/22/24 08/24/24 Rx sugar diagnostic) blood sugar diagnostic (Accu-Chek #100 ea 03/24/24 08/24/24 Rx Elvira Plus test strips) blood-glucose meter,continuous #1 ea 03/30/24 08/24/24 Rx (Dexcom G7 Forest Management Professor) blood-glucose sensor (Dexcom G7 #4 ea 04/25/24 08/24/24 Rx Sensor device) insulin degludec 100 unit/mL (3 0 unit subcut UD 08/15/24 10/03/24 History mL) subcutaneous pen (Tresiba FlexTouch U-100 insulin) sertraline 50 mg tablet 50 mg PO DAILY 08/15/24 10/03/24 History amlodipine 10 mg tablet 10 mg PO DAILY #30 tabs 08/24/24 10/03/24 Rx pen needle, diabetic 32 gauge x #100 ea 09/12/24 Rx 5/32" (BD Ultra-Fine Snow Pen Needle) apixaban 5 mg tablet (Eliquis) 5 mg PO BID 30 days #60 tabs 09/28/24 10/03/24 Rx carvedilol 6.25 mg tablet 6.25 mg PO BID #60 tabs 09/28/24 10/03/24 Rx ferrous sulfate 325 mg (65 mg 325 mg PO DAILY #14 tabs 09/28/24 10/03/24 Rx iron) tablet isosorbide mononitrate 30 mg 30 mg PO DAILY #30 tabs 09/28/24 10/03/24 Rx tablet,extended release 24 hr hydralazine 50 mg tablet 0 mg PO TID 10/03/24 10/03/24 History Past Med/Surg History Problem List (Updated 10/03/24 @ 18:43 by Ani Arias PA-C) Nephrotic range proteinuria Dyspnea on minimal exertion (Acute) CHF (congestive heart failure) (Acute) Chronic kidney disease (Acute) History of angina Burn of foot, right, second degree Pleural effusion Pericardial effusion Exertional angina Acute heart failure with mildly reduced ejection fraction (HFmrEF, 41-49%) Anemia Type 2 diabetes mellitus Chest pain Blister (Acute) Hypoxia (Acute) Elevated troponin (Acute) ONEIL (acute kidney injury) (Acute) CHF (congestive heart failure) (Acute) Hypoxia Elevated troponin Paroxysmal atrial fibrillation ONEIL (acute kidney injury) Wound of right foot (Acute) Diabetes mellitus type 2, uncontrolled, with complications Hypertension (Acute) Anxiety and depression Diabetic neuropathy Asymptomatic hypertensive urgency Hypertensive emergency (Acute) Homonymous hemianopsia Encephalopathy (Acute) Mitral regurgitation Neuropathic pain of both feet Edema of both legs (Acute) Elevated vitamin B12 level Type 2 diabetes mellitus with hyperosmolar hyperglycemic state (HHS) (Acute) RBBB Type II diabetes mellitus with neurological manifestations, uncontrolled (Chronic) Noncompliance with treatment plan (Acute) Lichen sclerosus et atrophicus (Acute) Medical History Acute on chronic heart failure with preserved ejection fraction (HFpEF, >= 50%) Bilateral ankle joint pain Type 2 diabetes mellitus, uncontrolled Proteinuria Hypokalemia Diarrhea Fall Hypomagnesemia Acute UTI Weakness Acute UTI Sepsis Prolonged QT interval Non-convulsive status epilepticus Pulmonary edema Hyperosmolar hyperglycemic state (HHS) Acute metabolic encephalopathy Severe sepsis Complicated UTI (urinary tract infection) Lactic acidosis HHS (hypothenar hammer syndrome) Elevated troponin Unresponsive state DKA (diabetic ketoacidosis) Sepsis Hyponatremia Hyperlipidemia Surgical History History of lumbar surgery L4-L5 H/O total hysterectomy Family History Father Diabetes Prostate cancer Grandmother Diabetes Aunt Colorectal cancer Brother Stroke Denies family history of Ovarian cancer Myocardial infarction Breast cancer Social History Smoking Status: Never smoker Tobacco Type: E-cigarettes / Vaping Second Hand Exposure: No; Do You Dip or Chew Tobacco: No; Hx Alcohol Use: No Hx Substance Use: No Preferred Language: Syriac Communication Ability: Effective Communication Ability Comment: Patient reports she has trouble seeing Visual Impairment: No Limitations Hearing Ability: Normal Heading Machine Operator Required: No Beliefs That Will Affect Care: None marital status: Current Living Situation: Spouse Current Living Situation Comment: Lives with spouse current occupational status: retired 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 How many Children do You have: 3 Feels Safe at Home: Yes Childhood Exposure to Second-Hand Smoke: No Diet: regular Diet Comment: added more salads to diet. caffeine: Yes (soda 3 x week) during the past year weight has: remained stable Dental Care, Regularly: No Physical Activity Frequency: Does not Exercise Seatbelt Use: always Sunscreen Use: No Do you think of yourself as: straight/heterosexual Gender Identity: Female Assistive Devices: Cane Review of Systems Review of Systems: see HPI Physical Exam Physical Exam: The patient is awake, alert and oriented 3, well developed and well nourished, normocephalic and atraumatic, in no acute distress. Non-toxic appearing. HEENT- EOMI, mucous membranes moist. Hearing grossly intact. Heart-normal S1 and S2. No murmurs, rubs or gallops. Lungs-decreased bilaterally, no respiratory distress, no accessory muscle use. Abdomen-normal bowel sounds and soft. No ascites noted. Non-tender. Extremities- no clubbing, cyanosis. +3 pitting edema bl LE. Right 1st mesotarsal with dry, healing wound; nontender, no erythema. Rheumatologic-normal range of motion. Results & Data Results & Data Vital Signs (Past 12 Hours) Vital Signs Temp Pulse Resp BP Pulse Ox O2 Del Method 10/03/24 12:27 55 L 10/03/24 12:06 53 L 17 164/84 H 92 10/03/24 11:42 53 L 20 158/80 H 91 10/03/24 11:39 93 Room Air 10/03/24 11:39 Room Air 10/03/24 11:39 Room Air 10/03/24 11:19 36.6 C 56 L 24 157/74 H 98 Code Status & VTE Plan Code Status DNR/DNI VTE Prophylaxis Plan VTE Prophylaxis will be ordered: Yes Supervising Physician Co-Signing Physician Notes I personally saw and examined the patient. I independently reviewed the labs, EKG, imaging, problem list, medication list, past medical history and family history. I verified all chavira points and agree with Ani Arias PA-C with the following exceptions and/or additions: 69 year old female presents to the ER with shortness of breath. Progressively getting worse following thanksgiving. Has not been compliant with low salt diet and did not have her carvedilol on discharge (pharmacies where closed). Finished Augmentin for cellulitis last admission O/E HS RRR, no murmurs, Chest Bibasl crackles, 3+ piting edema b/l equal, no cellulitis surrounding burn wound of toe A/P Acute on chronic HFpEF (borderline) - Lasix 40mg IV BID, doubtful small bump in Cr last admission was Lasix induced but will monitor for this closely again as suspect diet contributed significantly towards this hospitalization. Strict I&Os, daily weights. Nephrotic range proteinuria - contributing towards hypervolemia although suspect less so than her heart as this appears to be longstanding. Declines further workup as previously with nephrology and most likely secondary to diabetes and HTN. Ideally should be on losartan and unclear why or when this was stopped but will hold off initially prescribing to not complicate the clinical picture with her renal function Otherwise as above PG Care Time/CCT Total # of Minutes Spent Total Time Spent with Patient: Total time spent is greater than 50% in coordination of care (as documented) at patient's floor/unit and/or counseling patient: Coding Level of Care Code 22286 INT INP/OBS CARE 3MIN Diagnoses Acute heart failure with mildly reduced ejection fraction (HFmrEF, 41-49%) I50.21 Nephrotic range proteinuria R80.9 Partial thickness burn of right foot, initial encounter T25.221A Encounter type: initial encounter History of angina Z86.79 Type 2 diabetes mellitus with hyperglycemia, with long-term current use of insulin E11.65; Z79.4 Diabetes mellitus complication status: with hyperglycemia Diabetes mellitus chcf insulin use: with terminal manager use (3) Burn of foot, right, second degree Encounter type: initial encounter Qualified Code(s): T25.221A - Burn of second degree of right foot, initial encounter (5) Type 2 diabetes mellitus Diabetes mellitus complication status: with hyperglycemia Diabetes mellitus chcf insulin use: with chcf use Qualified Code(s): E11.65 - Type 2 diabetes mellitus with hyperglycemia; Z79.4 - retirement (current) use of insulin
[2024-10-03] MEDS: FUROSEMIDE 40 MG/4 ML VIAL IV ONE (13:52)
[2024-10-03 14:58] LABS: Appearance Urine Clear (Clear); Bacteria Urine Automated None Seen (None Seen); Bilirubin Urine Negative (Negative); Blood Urine Negative (Negative); Color Urine Yellow; Epithelial Cell Urine Auto 0-2 /hpf (0-2); Glucose Urine UA Negative (Negative); Ketones Urine Negative (Negative); Leukocyte Esterase Urine Negative (Negative); Nitrite Urine Negative (Negative); Protein Urine 3+ (Negative); RBC Urine Automated 0-2 /hpf (0-2); Urobilinogen Urine Negative (Negative); WBC Urine Automated 0-5 /hpf (0-5); pH Urine 5.5 (4.5-7.5)
[2024-10-03] MEDS ORDERED: GLUCAGON FOR INJ 1 MG VIAL SQ PRN (15:25)
[2024-10-03] MEDS ORDERED: CARBOHYDRATES FOR HYPOGLYCEMIA PO PRN (15:25)
[2024-10-03] MEDS ORDERED: ACETAMINOPHEN 325 MG TAB PO PRN (15:25)
[2024-10-03] MEDS ORDERED: DOCUSATE SODIUM 100 MG CAP PO PRN (15:25)
[2024-10-03] MEDS ORDERED: GLUCOSE 40% GEL 15 GM TUBE PO PRN (15:25)
[2024-10-03] MEDS ORDERED: GLUCOSE 10 TAB/TUBE PO PRN (15:25)
[2024-10-03] MEDS ORDERED: DEXTROSE 50% 50 ML SYRINGE IV PRN (15:25)
[2024-10-03 16:33] LABS: Protein Creatinine Ratio Urine 4.7 (0-0.2); Total Protein Urine Random 206.8 mg/dl (0-11.9)
[2024-10-03] MEDS: hydrALAZINE TAB 50 MG TAB PO SCH (17:28)
[2024-10-03] MEDS: carvediloL 6.25 MG TAB PO SCH (17:29)
[2024-10-03] MEDS: INSULIN ASPART PER UNIT CHARGE SC SCH (18:13)
[2024-10-03] MEDS: LANTUS PER UNIT CHARGE SQ ONE ×2 (18:13→19:17)
[2024-10-03] MEDS: APIXABAN 5 MG TABLET PO SCH (21:23)
[2024-10-04] MEDS: FAMOTIDINE 20 MG TAB PO STA (02:06)
[2024-10-04 02:34] LABS: Basophils # (auto) 0.05 K/uL (0.00-0.20); Basophils % (auto) 0.7 %; Eosinophils # (auto) 0.31 K/uL (0.00-0.50); Eosinophils % (auto) 4.6 %; Hematocrit (blood only) 24.6 % (37.0-47.0); Hemoglobin 8.9 g/dl (12.0-16.0); Immature Granulocytes # (auto) 0.03 K/uL (0.01-0.20); Immature Granulocytes % (auto) 0.4 %; Lymphocytes # (auto) 1.16 K/uL (1.20-3.40); Lymphocytes % (auto) 17.3 %; Mean Corpuscular Hgb Conc 36.2 g/dL (32.0-36.0); Mean Corpuscular Volume 88.5 fL (80.0-100.0); Mean Platelet Volume 9.6 fL (9.4-12.4); Monocytes # (auto) 0.61 K/uL (0.11-0.59); Monocytes % (auto) 9.1 %; Neutrophils # (auto) 4.56 K/uL (1.40-6.50); Neutrophils % (auto) 67.9 %; Platelet Count 195 K/uL (130-400); RDW Coefficient of Variation 14.5 % (11.5-14.5); Red Blood Count 2.78 M/uL (4.20-5.40); White Blood Count 6.72 K/ul (4.8-10.8)
[2024-10-04 02:47] LABS: BUN Creatinine Ratio 22.2 (10-20); Calcium 8.6 mg/dl (8.6-10.3); Creatinine Clr Calc Pharmacy 24.9 ml/min; Magnesium 2.4 mg/dl (1.7-2.4); Potassium 3.7 mmol/L (3.5-5.1)
--- NOTE | 2024-10-04 03:46 | Communication Note ---
Date of Service: October 04, 2024 Alerted by nursing of concern for intermittent chest pain that pt believes could be secondary to GERD. Repeat EKG without acute ischemic changes. Repeat Trop= 9.9. Gave famotidine.
[2024-10-04] MEDS: ASPIRIN 81 MG ECTAB PO SCH (09:48)
[2024-10-04] MEDS: amLODIPine BESYLATE 5 MG TAB PO SCH (09:48)
[2024-10-04] MEDS: SERTRALINE HCL 50 MG TABLET PO SCH (09:49)
[2024-10-04] MEDS: FERROUS SULFATE 325 MG TAB PO SCH (09:49)
[2024-10-04] MEDS: ISOSORBIDE MONO EXTENDED REL 30 MG TABCR PO SCH (09:49)
[2024-10-04] MEDS: FUROSEMIDE 40 MG/4 ML VIAL IV SCH (09:56)
[2024-10-04] MEDS: LANTUS PER UNIT CHARGE SQ SCH (09:56)
[2024-10-04] MEDS: carvediloL 3.125 MG TAB PO SCH (11:26)
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
--- NOTE | 2024-10-04 13:40 | Electrocardiogram Report ---
Test Reason : Blood Pressure : */* mmHG Vent. Rate : 56 BPM Atrial Rate : 56 BPM P-R Int : 116 ms QRS Dur : 80 ms QT Int : 494 ms P-R-T Axes : -11 8 31 degrees QTcB Int : 476 ms Sinus bradycardia with occasional Premature ventricular complexes Low voltage QRS Cannot rule out Anterior infarct , age undetermined Abnormal ECG When compared with ECG of 26-Sep-2024 03:51, Premature ventricular complexes are now Present Minimal criteria for Anterior infarct are now Present Confirmed by Shaun Lund ([id number]) on 10/04/2024 1:40:19 PM Referred By: REFERRED SELF Confirmed By: Shaun Lund
--- NOTE | 2024-10-04 14:05 | Electrocardiogram Report ---
Test Reason : Blood Pressure : */* mmHG Vent. Rate : 57 BPM Atrial Rate : 57 BPM P-R Int : 124 ms QRS Dur : 94 ms QT Int : 454 ms P-R-T Axes : 45 67 39 degrees QTcB Int : 441 ms Sinus bradycardia Cannot rule out Anterior infarct (cited on or before 03-Oct-2024) Abnormal ECG When compared with ECG of 03-Oct-2024 11:31, (unconfirmed) Premature ventricular complexes are no longer Present Questionable change in QRS axis Confirmed by Shaun Lund ([id number]) on 10/04/2024 2:04:31 PM Referred By: REFERRED SELF Confirmed By: Shaun Lund
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
[2024-10-05 06:51] LABS: Basophils # (auto) 0.05 K/uL (0.00-0.20); Basophils % (auto) 0.8 %; Eosinophils # (auto) 0.31 K/uL (0.00-0.50); Eosinophils % (auto) 4.9 %; Hematocrit (blood only) 23.9 % (37.0-47.0); Hemoglobin 8.4 g/dl (12.0-16.0); Immature Granulocytes # (auto) 0.04 K/uL (0.01-0.20); Immature Granulocytes % (auto) 0.6 %; Lymphocytes % (auto) 18.9 %; Mean Corpuscular Hemoglobin 31.1 pg (25.0-34.0); Mean Corpuscular Hgb Conc 35.1 g/dL (32.0-36.0); Mean Corpuscular Volume 88.5 fL (80.0-100.0); Mean Platelet Volume 9.3 fL (9.4-12.4); Monocytes # (auto) 0.58 K/uL (0.11-0.59); Monocytes % (auto) 9.1 %; Neutrophils # (auto) 4.16 K/uL (1.40-6.50); Neutrophils % (auto) 65.7 %; Platelet Count 178 K/uL (130-400); RDW Coefficient of Variation 14.7 % (11.5-14.5); RDW Standard Deviation 47.8 fL (36.4-46.3); White Blood Count 6.34 K/ul (4.8-10.8)
[2024-10-05 07:12] LABS: BUN Creatinine Ratio 23.2 (10-20); Calcium 8.6 mg/dl (8.6-10.3); Creatinine Clr Calc Pharmacy 22.8 ml/min; Magnesium 2.2 mg/dl (1.7-2.4); Potassium 3.6 mmol/L (3.5-5.1)
--- NOTE | 2024-10-05 09:52 | Nephrology Progress Note ---
Date of Service October 05, 2024 Assessment & Plan (1) ONEIL (acute kidney injury): Plan: Non-oliguric. ONEIL versus progression of CKD. Creatinine relatively stable. Electrolytes acceptable. Volume status improving. No emergent indication for HAT BLOCK BENCH HAND. ONEIL attributed to accelerated hypertension, poorly controlled diabetes mellitus, and decompensated CHF. Medications are appropriate for kidney function. Document strict I/Os. Monitor metabolic profile daily while inpatient. (2) Chronic kidney disease: Plan: CKD attributed to DKD and hypertension. If kidney function remains stable with diuresis, consider revisiting ALIDA or ARB. Schedule outpatient nephrology follow up at discharge. (3) Proteinuria: Plan: 24 hour urine pending. Normal serum albumin argues against nephrotic syndrome. BP is improving. ALIDA/ARB held given ONEIL but I would consider revisiting if kidney function remains stable on continued monitoring and as volume status improves. Defer SGLT2i option given recurrent UTI. No monoclonal detected in the serum. Repeat testing pending. 24 hour urine pending. No hypercalcemia. Clinical presentation is atypical for plasma cell disorder. (4) Acute heart failure with mildly reduced ejection fraction (HFmrEF, 41-49%): Plan: Diuresing with furosemide 40 mg IV BID. Admission and Anticipated Discharge Date Admission Date: October 03, 2024 Subjective No acute events overnight. Carol was resting comfortably in bed this AM. She continues to endorse dyspnea with minimal activity. She describes shortness of breath walking to the bathroom. She denies chest pains. She is not experiencing palpitations. Edema is improving. She is diuresing with furosemide 40 mg IV BID. Review of Systems Review of Systems: All systems reviewed & are unremarkable except as noted in HPI & below Physical Exam Constitutional: well developed; no acute distress Eyes: + anicteric sclerae; no conjunctival abn ormality ENMT: Mouth: no oral mucosal abnormality and oral mucous membranes not dry Neck: normal visual inspection and trachea midline Respiratory: normal respiratory effort Auscultation: lungs clear to auscultation bilaterally and + rales Cardiovascular: Rate/Rhythm: regular rate Heart Sounds: normal S1 and normal S2 Extremities: + pedal edema Musculoskeletal: Extremities: no cyanosis and no clubbing Skin: normal turgor; no lesions Neurologic: Motor/Sensory: no tremor and no asterixis Psychiatric: Orientation: alert and oriented x 3 Results & Data Vital Signs (Past 12 Hours) Vital Signs Temp Pulse Pulse Resp BP BP Pulse Ox 10/05/24 07:57 36.6 C 96 H 18 167/80 H 98 10/05/24 07:50 10/05/24 07:19 60 10/05/24 03:50 36.8 C 60 18 167/85 H 93 10/05/24 00:42 10/05/24 00:32 36.5 C 60 18 168/72 H 95 10/04/24 21:57 58 L O2 Del Method 10/05/24 07:57 Room Air 10/05/24 07:50 Room Air 10/05/24 07:19 10/05/24 03:50 Room Air 10/05/24 00:42 Room Air 10/05/24 00:32 Room Air 10/04/24 21:57 Laboratory Results Laboratory Results - last 24 hr 10/04/24 10/04/24 10/04/24 10:52 12:01 17:13 WBC RBC Hgb Hct MCV MCH MCHC RDW Std Deviation RDW Coeff of Abel Plt Count MPV Immature Gran % (Auto) Neut % (Auto) Lymph % (Auto) [place] % (Auto) Eos % (Auto) Baso % (Auto) Neut # (Auto) Lymph # (Auto) [place] # (Auto) Eos # (Auto) Baso # (Auto) Immature Gran # (Auto) Sodium Potassium Chloride Carbon Dioxide Anion Gap BUN Creatinine Est Cr Clr Drug Dosing eGFR BUN/Creatinine Ratio Glucose POC Glucose 146 H 109 H Calcium Magnesium Serum Immunofixation Free [place] LC, Quant Pending Free Lambda LC, Quant Pending Free [place]/Lambda Ratio Pending 10/04/24 10/05/24 10/05/24 21:01 06:09 08:17 WBC 6.34 RBC 2.70 L Hgb 8.4 L Hct 23.9 L MCV 88.5 MCH 31.1 MCHC 35.1 RDW Std Deviation 47.8 H RDW Coeff of Abel 14.7 H Plt Count 178 MPV 9.3 L Immature Gran % (Auto) 0.6 Neut % (Auto) 65.7 Lymph % (Auto) 18.9 [place] % (Auto) 9.1 Eos % (Auto) 4.9 Baso % (Auto) 0.8 Neut # (Auto) 4.16 Lymph # (Auto) 1.20 [place] # (Auto) 0.58 Eos # (Auto) 0.31 Baso # (Auto) 0.05 Immature Gran # (Auto) 0.04 Sodium 140 Potassium 3.6 Chloride 110 H Carbon Dioxide 23 Anion Gap 7 BUN 52 H Creatinine 2.24 H Est Cr Clr Drug Dosing 22.8 eGFR 23.46 BUN/Creatinine Ratio 23.2 H Glucose 74 POC Glucose 114 H 77 Calcium 8.6 Magnesium 2.2 Serum Immunofixation Pending Free [place] LC, Quant Free Lambda LC, Quant Free [place]/Lambda Ratio PG Care Time/CCT Total # of Minutes Spent Total Time Spent with Patient: Total time spent is greater than 50% in coordination of care (as documented) at patient's floor/unit and/or counseling patient: Coding Level of Care Code 24692 SUB INP/OBS CARE 3/50MIN Diagnoses ONEIL (acute kidney injury) N17.9 Chronic kidney disease N18.9 Chronic kidney disease stage: unspecified stage Proteinuria R80.9 Acute heart failure with mildly reduced ejection fraction (HFmrEF, 41-49%) I50.21 (2) Chronic kidney disease Chronic kidney disease stage: unspecified stage Qualified Code(s): N18.9 - [place] kidney disease, unspecified
--- NOTE | 2024-10-05 12:13 | Hospitalist Progress Note ---
Date of Service October 05, 2024 Assessment & Plan (1) Acute heart failure with mildly reduced ejection fraction (HFmrEF, 41-49%): Plan: Acute on chronic HFmrEF 2/2 increased salt load w/ Thanksgiving dinner, and noncompliance with new CHF meds. Also her Lasix was discontinued last week on discharge from the hospital due to ONEIL Echo 09/22 -EF 45 to 50%, hypokinesis of mid to distal anterior lateral and anterior argueta, moderate LVH, moderate MR, mild pulm HTN, small pericardial effusion Thought to have nonischemic cardiomyopathy. Had a nuclear stress test last admission without large area of ischemia or infarct. Patient with RAMIREZ, mild cough, bilat LE edema, 5 kg weight gain since lowest weight during recent hospitalization CXR w/ cardiomegaly with pulmonary edema, moderate bilateral pleural effusions R>L (increased since previous XR) BNP 514 UA with 3+ protein, elevated spot urine protein to creatinine ratio and with acute kidney injury ongoing. SPEP from last admission with faint M spike in the gamma globulin region, immune fixation recommended Diuresing well here, weight down, LE edema improved, RAMIREZ improving, bias cutter remaining stable at 2.2 Continue Lasix 40 Mg IV twice daily Continue low-sodium, fluid restricted diet Strict I&O monitoring, daily weights Follow BMP, magnesium and keep electrolytes replete Continue carvedilol but lowered dose to 3.125 Mg p.o. twice daily due to bradycardia Continue hydralazine, isosorbide-cannot give Entresto/ALIDA inhibitor/ARB due to acute kidney injury, but Nephro wants to consdier resuming given proteinuria Avoiding SGLT 2 inhibitor due to history of UTIs (2) Nephrotic range proteinuria: Plan: ONEIL on CKD stage III- baseline creatinine 0.9 earlier this year and then up to 1.6 in August. Then up to 2.5 during admission last week with diuresis for heart failure UA with 3+ protein, elevated spot protein to creatinine ratio Appreciate nephrology consultation-feels ONEIL is attributed to accelerated hypertension, poorly controlled DM2, and decompensated heart failure and that this could be progression of CKD. Recommends continuing IV diuresis, possibly adding ARB/ACEi/ARNI Given abnormal SPEP-checking immunofixation electrophoresis of the serum, 24- hour urine protein and urine JOHNSON, light chains (3) Anemia: Plan: Hemoglobin low but stable from previous at 8.4, normocytic Reviewed iron studies from last admission-transferrin saturation was low at 16% but ferritin normal at 261 B12 and folate normal TSH normal from 6 months ago SPEP mildly abnormal as above-further studies ordered Follow-up with hematology as an outpatient Follow CBC (4) Burn of foot, right, second degree: Plan: patient with history of diabetic neuropathy Improving, completed course of antibiotics during previous hospitalization for Staph epi infection Continue daily dressing changes as per podiatry recommendations during previous hospitalization Wound care consult appreciated (5) Type 2 diabetes mellitus: Plan: Controlled on insulin at home Most recent A1C 4.7 continue home 14 units Lantus QAM SSI with target BSG range 110-140mg/dL, CF 25, carb ratio 15 T2DM diet, BSG ACHS Plan Chronic diagnoses: depression - continue sertraline paroxysmal A-fib -is in sinus bradycardia here, continue Eliquis HTN -blood pressures are improving now with diuresis-continue hydralazine and amlodipine, carvedilol, isosorbide, IV Lasix VTE ppx: Eliquis Code status: DNI/DNI Dispo: Continued stay on med/tele Admission and Anticipated Discharge Date Admission Date: October 03, 2024 Subjective Feels better, less RAMIREZ, and leg swelling decreasing. Is eating, moving bowels. No chest pain. Asks if she can change her diet to help her kidneys Tele with SB, NSR rates 50-60s Physical Exam Constitutional: WD/WN, vitals as above Respiratory: normal respiratory effort Auscultation: + diminished lung sounds (at right base>left base) and + bronchial breath sounds (right base); no rales, no rhonchi and no wheezes Cardiovascular: Rate/Rhythm: regular rate and regular rhythm Heart Sounds: no murmur Extremities: + edema (2+ pitting edema to the knees bilateral LEs,imroving) Gastrointestinal (Abdomen): normal bowel sounds, soft, nontender, no hepatosplenomegaly Psychiatric: Orientation: alert, oriented to person, oriented to place and cooperative Results & Data Results & Data Vital Signs (Past 12 Hours) Vital Signs Temp Pulse Pulse Resp BP BP Pulse Ox 10/05/24 11:41 36.6 C 59 L 18 136/68 95 10/05/24 07:57 36.6 C 96 H 18 167/80 H 98 10/05/24 07:50 10/05/24 07:19 60 10/05/24 03:50 36.8 C 60 18 167/85 H 93 10/05/24 00:42 10/05/24 00:32 36.5 C 60 18 168/72 H 95 O2 Del Method 10/05/24 11:41 Room Air 10/05/24 07:57 Room Air 10/05/24 07:50 Room Air 10/05/24 07:19 10/05/24 03:50 Room Air 10/05/24 00:42 Room Air 10/05/24 00:32 Room Air Laboratory Results CBC, BMP, magnesium reviewed PG Care Time/CCT Total # of Minutes Spent Total Time Spent with Patient: Total time spent is greater than 50% in coordination of care (as documented) at patient's floor/unit and/or counseling patient: Coding Level of Care Code 92055 SUB INP/OBS CARE 2/35MIN Diagnoses Acute heart failure with mildly reduced ejection fraction (HFmrEF, 41-49%) I50.21 Nephrotic range proteinuria R80.9 Anemia D64.9 Anemia type: unspecified type Partial thickness burn of right foot, initial encounter T25.221A Encounter type: initial encounter Type 2 diabetes mellitus with hyperglycemia, with long-term current use of insulin E11.65; Z79.4 Diabetes mellitus penitentiary insulin use: with salvage determiner use Diabetes mellitus complication status: with hyperglycemia (3) Anemia Anemia type: unspecified type Qualified Code(s): D64.9 - Anemia, unspecified (4) Burn of foot, right, second degree Encounter type: initial encounter Qualified Code(s): T25.221A - Burn of second degree of right foot, initial encounter (5) Type 2 diabetes mellitus Diabetes mellitus salvage determiner insulin use: with penitentiary use Diabetes mellitus complication status: with hyperglycemia Qualified Code(s): E11.65 - Type 2 diabetes mellitus with hyperglycemia; Z79.4 - buttermilk drier operator (current) use of insulin
[2024-10-05 15:12] LABS: Free Kappa/Lambda Ratio 1.71 (0.26-1.65); Free Lambda 29.9 mg/L (5.7-26.3)
[2024-10-06 08:19] LABS: BUN Creatinine Ratio 22.2 (10-20); Calcium 8.8 mg/dl (8.6-10.3); Potassium 3.6 mmol/L (3.5-5.1)
--- NOTE | 2024-10-06 10:12 | Nephrology Progress Note ---
Date of Service October 06, 2024 Assessment & Plan (1) ONEIL (acute kidney injury): Plan: Non-oliguric. Creatinine stable. Findings are suggestive of progression of CKD. Electrolytes acceptable. Volume status euvolemic today. No indication for MICROARRAY ANALYST at this time. However, close outpatient nephrology follow up is strongly encouraged. Kidney disease attributed to accelerated hypertension, poorly controlled diabetes mellitus, and decompensated CHF. Medications are appropriate for kidney function. (2) Chronic kidney disease: Plan: CKD attributed to DKD and hypertension. I would suggest starting losartan 25 mg daily. Schedule outpatient nephrology follow up at discharge. (3) Proteinuria: Plan: 3 grams on 24 hour urine. UIEP pending. I would suggest starting losartan 25 mg daily now. Defer SGLT2i option given recurrent UTI. (4) Acute heart failure with mildly reduced ejection fraction (HFmrEF, 41-49%): Plan: Diuresing with furosemide 40 mg IV BID. Admission and Anticipated Discharge Date Admission Date: October 03, 2024 Subjective No acute events overnight. Carol feels well this AM. Edema has significantly improved. She is breathing comfortably. She hopes to be discharged home. We discussed starting an ARB. She does not recall ever taking an ALIDA or ARB in the past. She cannot recall any of her home medications. She does not recall seeing Dr. Hensley in the nephrology clinic in the past. Risks/benefits were discussed. Review of Systems Review of Systems: All systems reviewed & are unremarkable except as noted in HPI & below Physical Exam Constitutional: well developed; no acute distress Eyes: + anicteric sclerae; no conjunctival abn ormality ENMT: Mouth: no oral mucosal abnormality and oral mucous membranes not dry Neck: normal visual inspection and trachea midline Respiratory: normal respiratory effort Auscultation: lungs clear to auscultation bilaterally Cardiovascular: Rate/Rhythm: regular rate Heart Sounds: normal S1 and normal S2 Extremities: no edema Musculoskeletal: Extremities: no cyanosis and no clubbing Skin: normal turgor; no lesions Neurologic: Motor/Sensory: no tremor and no asterixis Psychiatric: Orientation: alert and oriented x 3 Results & Data Vital Signs (Past 12 Hours) Vital Signs Temp Pulse Pulse Resp BP Pulse Ox O2 Del Method 10/06/24 07:42 36.6 C 62 18 177/87 H 93 Room Air 10/06/24 07:33 66 10/06/24 04:15 36.8 C 65 18 162/75 H 95 Room Air 10/06/24 04:00 Room Air 10/05/24 22:41 36.6 C 61 18 153/78 H 94 Room Air Laboratory Results Laboratory Results - last 24 hr 10/04/24 10/05/24 10/05/24 10:52 10:43 10:43 Sodium Potassium Chloride Carbon Dioxide Anion Gap BUN Creatinine Est Cr Clr Drug Dosing eGFR BUN/Creatinine Ratio Glucose POC Glucose Calcium Urine Total Volume 2225 Ur Creatinine 24 Hour Pending Ur Total Protein 24 Hr Pending 3026.0 H Protein/Creat Ratio 24h Pending Urine Total Protein 136.0 Urine Albumin (%) Pending U Crsao-7-Njaypisq (%) Pending U Jiagr-6-Fsweyqge (%) Pending U Beta Globulin (%) Pending U Gamma Globulin (%) Pending U Abnormal Prot Band 1 Pending U Abnormal Prot Band 2 Pending U Abnormal Prot Band 3 Pending Urine PEP Interpret Pending Urine Immunofixation Pending Free [place] LC, Quant 51.0 H Free Lambda LC, Quant 29.9 H Free [place]/Lambda Ratio 1.71 H 10/05/24 10/05/24 10/05/24 12:06 16:58 19:55 Sodium Potassium Chloride Carbon Dioxide Anion Gap BUN Creatinine Est Cr Clr Drug Dosing eGFR BUN/Creatinine Ratio Glucose POC Glucose 103 H 98 109 H Calcium Urine Total Volume Ur Creatinine 24 Hour Ur Total Protein 24 Hr Protein/Creat Ratio 24h Urine Total Protein Urine Albumin (%) U Muchn-0-Vyggmond (%) U Hjdqe-9-Pyxwyqxa (%) U Beta Globulin (%) U Gamma Globulin (%) U Abnormal Prot Band 1 U Abnormal Prot Band 2 U Abnormal Prot Band 3 Urine PEP Interpret Urine Immunofixation Free [place] LC, Quant Free Lambda LC, Quant Free [place]/Lambda Ratio 10/06/24 10/06/24 07:06 08:21 Sodium 141 Potassium 3.6 Chloride 108 H Carbon Dioxide 24 Anion Gap 9 BUN 54 H Creatinine 2.43 H Est Cr Clr Drug Dosing 21.0 eGFR 21.28 BUN/Creatinine Ratio 22.2 H Glucose 61 L POC Glucose 70 Calcium 8.8 Urine Total Volume Ur Creatinine 24 Hour Ur Total Protein 24 Hr Protein/Creat Ratio 24h Urine Total Protein Urine Albumin (%) U Esxhs-0-Unhiugqq (%) U Laffc-8-Eyfnttkv (%) U Beta Globulin (%) U Gamma Globulin (%) U Abnormal Prot Band 1 U Abnormal Prot Band 2 U Abnormal Prot Band 3 Urine PEP Interpret Urine Immunofixation Free [place] LC, Quant Free [place]ambda LC, Quant Free [place]/Lambda Ratio PG Care Time/CCT Total # of Minutes Spent Total Time Spent with Patient: Total time spent is greater than 50% in coordination of care (as documented) at patient's floor/unit and/or counseling patient: Coding Level of Care Code 73446 SUB INP/OBS CARE 3/50MIN Diagnoses ONEIL (acute kidney injury) N17.9 Chronic kidney disease N18.9 Chronic kidney disease stage: unspecified stage Proteinuria R80.9 Acute heart failure with mildly reduced ejection fraction (HFmrEF, 41-49%) I50.21 (2) Chronic kidney disease Chronic kidney disease stage: unspecified stage Qualified Code(s): N18.9 - Chronic kidney disease, unspecified
[2024-10-06] MEDS: hydrALAZINE HCL 25 MG TAB PO SCH (14:05)
--- NOTE | 2024-10-06 17:38 | Hospitalist Progress Note ---
Date of Service October 06, 2024 Assessment & Plan (1) Acute heart failure with mildly reduced ejection fraction (HFmrEF, 41-49%): Plan: Acute on chronic HFmrEF 2/2 increased salt load w/ Thanksgiving dinner, and noncompliance with new CHF meds. Also her Lasix was discontinued last week on discharge from the hospital due to ONEIL Echo 09/22 -EF 45 to 50%, hypokinesis of mid to distal anterior lateral and anterior argueta, moderate LVH, moderate MR, mild pulm HTN, small pericardial effusion Thought to have nonischemic cardiomyopathy. Had a nuclear stress test last admission without large area of ischemia or infarct. Patient with RAMIREZ, mild cough, bilat LE edema, 5 kg weight gain since lowest weight during recent hospitalization CXR w/ cardiomegaly with pulmonary edema, moderate bilateral pleural effusions R>L (increased since previous XR) BNP 514 UA with 3+ protein, elevated spot urine protein to creatinine ratio and with acute kidney injury ongoing. SPEP from last admission with faint M spike in the gamma globulin region, immune fixation recommended-pending Continues to improve daily-LE edema improved with IV lasix, weight down, RAMIREZ resolved, shrinker remaining fairly stable at 2.4 Continue Lasix 40 Mg IV twice daily Continue low-sodium, fluid restricted diet Strict I&O monitoring, daily weights Follow BMP, magnesium and keep electrolytes replete Continue carvedilol but lowered dose to 3.125 Mg p.o. twice daily due to bradycardia Improve BP control--> increase isosorbide to 60mg daily and increase hydralazine to 75mg po tid Add losartan as per Nephro for proteinuria Avoiding SGLT 2 inhibitor due to history of UTIs (2) Nephrotic range proteinuria: Plan: ONEIL on CKD stage III- baseline creatinine 0.9 earlier this year and then up to 1.6 in August. Then up to 2.5 during admission last week with diuresis for heart failure UA with 3+ protein, elevated spot protein to creatinine ratio. 24 hr urine here with 3026 mg prot, UPEP pending Appreciate nephrology consultation-feels ONEIL is attributed to accelerated hypertension, poorly controlled DM2, and decompensated heart failure and that this could be progression of CKD. Recommends continuing IV diuresis, adding losartan Given abnormal SPEP-checking immunofixation electrophoresis of the serum, urine JOHNSON, light chains-pending Follow BMP (3) Anemia: Plan: Hemoglobin low but stable from previous at 8.4, normocytic Reviewed iron studies from last admission-transferrin saturation was low at 16% but ferritin normal at 261 B12 and folate normal TSH normal from 6 months ago SPEP mildly abnormal as above-further studies ordered Follow-up with hematology as an outpatient Follow CBC (4) Burn of foot, right, second degree: Plan: patient with history of diabetic neuropathy Improving, completed course of antibiotics during previous hospitalization for Staph epi infection Continue daily dressing changes as per podiatry recommendations during previous hospitalization Wound care consult appreciated (5) Type 2 diabetes mellitus: Plan: Controlled on insulin at home. With hypoglycemia here liekly related to diet changes in hospital plus ONEIL Most recent A1C 4.7 Reduce Lantus to 10 units, dc carb coverage and increase CF to 35 (from 25) T2DM diet, BSG ACHS Plan Chronic diagnoses: depression - continue sertraline paroxysmal A-fib -is in sinus bradycardia here, continue Eliquis HTN -blood pressures remain high-changes as above-continue hydralazine and amlodipine, carvedilol, isosorbide, IV Lasix VTE ppx: Eliquis Code status: DNI/DNI Dispo: Continued stay on med/tele, approaching possible discharge in 1-2 days Admission and Anticipated Discharge Date Admission Date: October 03, 2024 Subjective Was feeling better today but then had low blood sugar in the evening and felt shaky, sweaty, weak all over. Improved after drinking orange juice. Denies SOB and feels leg swelling is improved Tele with SB, NSR, PVCs, rates 50-60s Physical Exam Constitutional: WD/WN, vitals as above Respiratory: normal respiratory effort Auscultation: + diminished lung sounds (at right base>left base); no rales, no rhonchi and no wheezes Cardiovascular: Rate/Rhythm: regular rate and regular rhythm Heart Sounds: no murmur Extremities: + edema (1+ pitting edema to the knees bilateral LEs,much improved) Results & Data Results & Data Vital Signs (Past 12 Hours) Vital Signs Temp Pulse Pulse Resp BP Pulse Ox Pulse Ox 10/06/24 15:12 64 10/06/24 15:09 36.4 C L 59 L 18 159/78 H 95 10/06/24 15:00 96 10/06/24 11:13 36.4 C L 60 18 152/76 H 94 10/06/24 07:42 36.6 C 62 18 177/87 H 93 10/06/24 07:33 66 O2 Del Method O2 Del Method 10/06/24 15:12 10/06/24 15:09 Room Air 10/06/24 15:00 Room Air 10/06/24 11:13 Room Air 10/06/24 07:42 Room Air 10/06/24 07:33 Laboratory Results BMP, 24 hr urine protein reviewed PG Care Time/CCT Total # of Minutes Spent Total Time Spent with Patient: Total time spent is greater than 50% in coordination of care (as documented) at patient's floor/unit and/or counseling patient: Coding Level of Care Code 26097 SUB INP/OBS CARE 50MIN Diagnoses Acute heart failure with mildly reduced ejection fraction (HFmrEF, 41-49%) I50.21 Nephrotic range proteinuria R80.9 Anemia D64.9 Anemia type: unspecified type Partial thickness burn of right foot, initial encounter T25.221A Encounter type: initial encounter Type 2 diabetes mellitus with hyperglycemia, with long-term current use of insulin E11.65; Z79.4 Diabetes mellitus custodial insulin use: with terminal press operator use Diabetes mellitus complication status: with hyperglycemia (3) Anemia Anemia type: unspecified type Qualified Code(s): D64.9 - Anemia, unspecified (4) Burn of foot, right, second degree Encounter type: initial encounter Qualified Code(s): T25.221A - Burn of second degree of right foot, initial encounter (5) Type 2 diabetes mellitus Diabetes mellitus terminal press operator insulin use: with terminal press operator use Diabetes mellitus complication status: with hyperglycemia Qualified Code(s): E11.65 - Type 2 diabetes mellitus with hyperglycemia; Z79.4 - ad terminal makeup operator (current) use of insulin
[2024-10-06] MEDS: LOSARTAN POTASSIUM 25 MG TAB PO SCH (18:33)
[2024-10-07 04:15] VITALS: RESP 16
[2024-10-07 05:08] LABS: Abnormal Protein Band 1 DNR mg/24 h (NONE DETECTED); Abnormal Protein Band 2 DNR mg/24 h (NONE DETECTED); Abnormal Protein Band 3 DNR mg/24 h (NONE DETECTED); Creatinine, 24 hr Urine 0.69 g/24 h (0.50-2.15); Protein, Urine 24 Hour 2781 mg/24 h (<150); Ur Albumin % 84 %; Ur Alpha-1-globulin % 3 %; Ur Alpha-2-globulin % 3 %; Ur Beta Globulin % 7 %; Ur Gamma Globulin % 3 %; Ur Protein/Creatinine Rat mg/g 4032 mg/g creat (<150); Urine Protein/Creatinine Ratio 4.032 (<0.150)
[2024-10-07 06:10] LABS: Basophils # (auto) 0.04 K/uL (0.00-0.20); Basophils % (auto) 0.6 %; Eosinophils # (auto) 0.23 K/uL (0.00-0.50); Eosinophils % (auto) 3.5 %; Hematocrit (blood only) 23.7 % (37.0-47.0); Hemoglobin 8.4 g/dl (12.0-16.0); Immature Granulocytes # (auto) 0.02 K/uL (0.01-0.20); Immature Granulocytes % (auto) 0.3 %; Lymphocytes # (auto) 1.18 K/uL (1.20-3.40); Lymphocytes % (auto) 17.9 %; Mean Corpuscular Hemoglobin 31.5 pg (25.0-34.0); Mean Corpuscular Hgb Conc 35.4 g/dL (32.0-36.0); Mean Corpuscular Volume 88.8 fL (80.0-100.0); Mean Platelet Volume 9.1 fL (9.4-12.4); Monocytes # (auto) 0.76 K/uL (0.11-0.59); Monocytes % (auto) 11.6 %; Neutrophils # (auto) 4.35 K/uL (1.40-6.50); Neutrophils % (auto) 66.1 %; Platelet Count 171 K/uL (130-400); RDW Coefficient of Variation 14.6 % (11.5-14.5); RDW Standard Deviation 47.3 fL (36.4-46.3); Red Blood Count 2.67 M/uL (4.20-5.40); White Blood Count 6.58 K/ul (4.8-10.8)
[2024-10-07 06:35] LABS: BUN Creatinine Ratio 22.2 (10-20); Calcium 8.3 mg/dl (8.6-10.3); Creatinine Clr Calc Pharmacy 19.6 ml/min; Potassium 3.6 mmol/L (3.5-5.1)
[2024-10-07] MEDS: FERROUS SULFATE 325 MG TAB PO SCH (08:27)
[2024-10-07] MEDS: ISOSORBIDE MONO EXTENDED REL 60 MG TABCR PO SCH (08:28)
[2024-10-07] MEDS: LANTUS PER UNIT CHARGE SQ SCH (08:53)
[2024-10-07] MEDS ORDERED: LANTUS PER UNIT CHARGE SQ SCH (09:00)
--- NOTE | 2024-10-07 09:08 | Nephrology Progress Note ---
Date of Service October 07, 2024 Assessment & Plan (1) ONEIL (acute kidney injury): Plan: Non-oliguric. Creatinine relatively stable. Slight upward trend noted over the past several days which I suspect is a reflection of diuresis. Losartan was started yesterday and I would like to continue the medication. I have held diuretics this morning. Overall, findings are consistent with advanced CKD. Thankfully, electrolytes acceptable and volume status has improve. There is no indication for CLINICAL TECHNICIAN at this time. Close outpatient nephrology follow up is strongly encouraged. Kidney disease attributed to accelerated hypertension, poorly controlled diabetes mellitus, and decompensated CHF. Medications are appropriate for kidney function. (2) Chronic kidney disease: Plan: CKD attributed to DKD and hypertension. I would suggest continuing losartan 25 mg daily with close monitoring. Schedule outpatient nephrology follow up at discharge. Carol has established with Dr. Hensley in the [facility] [place] nephrology clinic. (3) Proteinuria: Plan: 3 grams on 24 hour urine. UIEP without monoclonal protein. Continue ARB. Defer SGLT2i option given recurrent UTI. (4) Acute heart failure with mildly reduced ejection fraction (HFmrEF, 41-49%): Plan: Fluid status improved with furosemide 40 mg IV BID. I think Carol is slightly over diuresed. Diuretics were held this AM. Admission and Anticipated Discharge Date Admission Date: October 03, 2024 Subjective No acute events overnight. Carol was resting comfortably in bed this morning. She continues to feel well. Edema has resolved. She is breathing comfortably. She remembers me but did not recall what we talked about in our conversation from yesterday. She has poor insight into her medical care. The patient in the bed next to Carol relayed details from a conversation that Carol had with the hospitalist yesterday. Carol was not able to recall any of the information but she remembers meeting with the hospitalist. Carol told me that she relies on her to help her with all her medications. Review of Systems Review of Systems: All systems reviewed & are unremarkable except as noted in HPI & below Physical Exam Constitutional: well developed; no acute distress Eyes: + anicteric sclerae; no conjunctival abn ormality ENMT: Mouth: no oral mucosal abnormality and oral mucous membranes not dry Neck: normal visual inspection and trachea midline Respiratory: normal respiratory effort Auscultation: lungs clear to auscultation bilaterally Cardiovascular: Rate/Rhythm: regular rate Heart Sounds: normal S1 and normal S2 Extremities: no edema Musculoskeletal: Extremities: no cyanosis and no clubbing Skin: + turgor decreased; no jaundice Neurologic: Motor/Sensory: no tremor and no asterixis Psychiatric: Orientation: alert and oriented x 3 Results & Data Vital Signs (Past 12 Hours) Vital Signs Temp Pulse Pulse Resp BP Pulse Ox O2 Del Method 10/07/24 07:43 36.8 C 65 165/76 H 92 Room Air 10/07/24 07:03 66 10/07/24 04:00 36.7 C 65 16 153/70 H 95 Room Air 10/07/24 03:24 Room Air 10/06/24 23:00 36.7 C 61 18 142/76 H 94 Room Air 10/06/24 21:42 59 L Laboratory Results Laboratory Results - last 24 hr 10/05/24 10/06/24 10/06/24 10:43 11:39 17:09 WBC RBC Hgb Hct MCV MCH MCHC RDW Std Deviation RDW Coeff of Abel Plt Count MPV Immature Gran % (Auto) Neut % (Auto) Lymph % (Auto) Crook % (Auto) Eos % (Auto) Baso % (Auto) Neut # (Auto) Lymph # (Auto) Crook # (Auto) Eos # (Auto) Baso # (Auto) Immature Gran # (Auto) Sodium Potassium Chloride Carbon Dioxide Anion Gap BUN Creatinine Est Cr Clr Drug Dosing eGFR BUN/Creatinine Ratio Glucose POC Glucose 134 H 57 L* Calcium Magnesium Ur Creatinine 24 Hour 0.69 Ur Total Protein 24 Hr 2781 H Protein/Creat Ratio 24h 4.032 H Urine Albumin (%) 84 U Dyxzf-3-Wkfbaoec (%) 3 U Qrkhy-4-Bdfsgqra (%) 3 U Beta Globulin (%) 7 U Gamma Globulin (%) 3 U Abnormal Prot Band 1 DNR U Abnormal Prot Band 2 DNR U Abnormal Prot Band 3 DNR Urine PEP Interpret SEE NOTE Urine Immunofixation SEE NOTE 10/06/24 10/06/24 10/06/24 17:10 17:29 18:32 WBC RBC Hgb Hct MCV MCH MCHC RDW Std Deviation RDW Coeff of Abel Plt Count MPV Immature Gran % (Auto) Neut % (Auto) Lymph % (Auto) Crook % (Auto) Eos % (Auto) Baso % (Auto) Neut # (Auto) Lymph # (Auto) Crook # (Auto) Eos # (Auto) Baso # (Auto) Immature Gran # (Auto) Sodium Potassium Chloride Carbon Dioxide Anion Gap BUN Creatinine Est Cr Clr Drug Dosing eGFR BUN/Creatinine Ratio Glucose POC Glucose 60 L* 76 167 H Calcium Magnesium Ur Creatinine 24 Hour Ur Total Protein 24 Hr Protein/Creat Ratio 24h Urine Albumin (%) U Pdtlq-3-Ycrcxuci (%) U Xpjia-1-Hootqvig (%) U Beta Globulin (%) U Gamma Globulin (%) U Abnormal Prot Band 1 U Abnormal Prot Band 2 U Abnormal Prot Band 3 Urine PEP Interpret Urine Immunofixation 10/06/24 10/07/24 10/07/24 20:26 05:41 08:14 WBC 6.58 RBC 2.67 L Hgb 8.4 L Hct 23.7 L MCV 88.8 MCH 31.5 MCHC 35.4 RDW Std Deviation 47.3 H RDW Coeff of Abel 14.6 H Plt Count 171 MPV 9.1 L Immature Gran % (Auto) 0.3 Neut % (Auto) 66.1 Lymph % (Auto) 17.9 Crook % (Auto) 11.6 Eos % (Auto) 3.5 Baso % (Auto) 0.6 Neut # (Auto) 4.35 Lymph # (Auto) 1.18 L Crook # (Auto) 0.76 H Eos # (Auto) 0.23 Baso # (Auto) 0.04 Immature Gran # (Auto) 0.02 Sodium 139 Potassium 3.6 Chloride 107 Carbon Dioxide 23 Anion Gap 9 BUN 58 H Creatinine 2.61 H Est Cr Clr Drug Dosing 19.6 eGFR 19.53 BUN/Creatinine Ratio 22.2 H Glucose 106 H POC Glucose 132 H 97 Calcium 8.3 L Magnesium 2.0 Ur Creatinine 24 Hour Ur Total Protein 24 Hr Protein/Creat Ratio 24h Urine Albumin (%) U Cggla-3-Utkdcbpz (%) U Jgszb-2-Rrxclspe (%) U Beta Globulin (%) U Gamma Globulin (%) U Abnormal Prot Band 1 U Abnormal Prot Band 2 U Abnormal Prot Band 3 Urine PEP Interpret Urine Immunofixation PG Care Time/CCT Total # of Minutes Spent Total Time Spent with Patient: Total time spent is greater than 50% in coordination of care (as documented) at patient's floor/unit and/or counseling patient: Coding Level of Care Code 86289 SUB INP/OBS CARE MIN Diagnoses ONEIL (acute kidney injury) N17.9 Chronic kidney disease N18.9 Chronic kidney disease stage: unspecified stage Proteinuria R80.9 Acute heart failure with mildly reduced ejection fraction (HFmrEF, 41-49%) I50.21 (2) Chronic kidney disease Chronic kidney disease stage: unspecified stage Qualified Code(s): N18.9 - Chronic kidney disease, unspecified
[2024-10-07 11:31] VITALS: PULSE 60; TEMP 97.5; O2SAT 97
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
[2024-10-07 15:14] VITALS: BP 151/79
== END 2024-10-07 15:30 | disposition home or self-care (01) | DRG 291 ==
LOC: ED 11:14 → INTOOBSV 13:42 → 2N 13:42 → SUATTDRO 13:42 → 2N 14:31

== ENCOUNTER 2024-10-23 04:46 | Inpatient (IN) ==
[2024-10-23 05:30] LABS: Basophils # (auto) 0.04 K/uL (0.00-0.20); Basophils % (auto) 0.5 %; Eosinophils # (auto) 0.22 K/uL (0.00-0.50); Eosinophils % (auto) 2.8 %; Hematocrit (blood only) 25.3 % (37.0-47.0); Hemoglobin 8.8 g/dl (12.0-16.0); Immature Granulocytes # (auto) 0.03 K/uL (0.01-0.20); Immature Granulocytes % (auto) 0.4 %; Lymphocytes # (auto) 1.06 K/uL (1.20-3.40); Lymphocytes % (auto) 13.3 %; Mean Corpuscular Hemoglobin 30.7 pg (25.0-34.0); Mean Corpuscular Hgb Conc 34.8 g/dL (32.0-36.0); Mean Corpuscular Volume 88.2 fL (80.0-100.0); Mean Platelet Volume 9.1 fL (9.4-12.4); Monocytes # (auto) 0.64 K/uL (0.11-0.59); Neutrophils # (auto) 5.98 K/uL (1.40-6.50); Platelet Count 145 K/uL (130-400); RDW Coefficient of Variation 14.1 % (11.5-14.5); RDW Standard Deviation 45.2 fL (36.4-46.3); Red Blood Count 2.87 M/uL (4.20-5.40); White Blood Count 7.97 K/ul (4.8-10.8)
[2024-10-23 05:32] LABS: Base Excess VBG -2.9 mEq/L; HCO3 VBG 21 mmol/L; Oxygen Saturation VBG 88.4 %; PCO2 VBG 33 mmHg (38-50); PO2 VBG 54 mmHg; pH VBG 7.41 (7.36-7.41)
[2024-10-23 05:47] LABS: Alanine Aminotransferase 26 U/L (7-52); Albumin Globulin Ratio 1.6 (0.9-2); Albumin Level 3.8 gm/dl (3.4-5.0); Alkaline Phosphatase 81 U/L (34-104); Anion Gap 9 (3-11); Aspartate Aminotransferase 23 U/L (13-39); BUN Creatinine Ratio 23.2 (10-20); Bilirubin,Total 1.5 mg/dl (0.2-1.0); Blood Urea Nitrogen 51 mg/dl (6-23); Calcium 8.5 mg/dl (8.6-10.3); Carbon Dioxide 21 mmol/L (21-32); Chloride 110 mmol/L (98-107); Globulin 2.4 gm/dl (2.5-4.0); Glucose 262 mg/dl (70-99(Fasting)); Magnesium 2.1 mg/dl (1.7-2.4); Potassium 4.3 mmol/L (3.5-5.1); Sodium 140 mmol/L (136-145); Total Protein 6.2 gm/dl (6.0-8.3)
[2024-10-23 05:52] LABS: Troponin I High Sensitivity 14.3 pg/ml (0-14)
[2024-10-23 06:02] LABS: Thyroid Stimulating Hormone 5.794 uIu/ml (0.300-4.500)
--- NOTE | 2024-10-23 06:04 | Emergency Department Note ---
Impression & Plan Dyspnea, Bilateral edema of lower extremity, Hypoxia, Pulmonary edema, COVID-19 ED Provider Note ED Provider Note NAME: JEANNE WOODRUFF AGE:69 SEX: Female : 1955 ARRIVES VIA: Private vehicle INFORMANT: Patient ED PROVIDER(s): Bev Mccollum DO CHIEF COMPLAINT: Shortness of breath HPI: This is a 69-year-old female who presents emergency department due to concern for increased shortness of breath. Patient states she felt more tired today compared to normal however she was out shopping with family. She states this evening she props her legs up as she tends to get increased leg swelling by the end of the day. While relaxing with family watching television she began to feel more short of breath. Patient states she does have a history of CHF. She does perform daily weights and her weight has not been uptrending in recent days. She has been taking her medications as prescribed including her daily Lasix. She states she was admitted last month for fluid on her lungs. She denies any fevers, chills, or other URI symptoms. She denies any known sick contacts. She states she did have some accompanying chest discomfort and back pain with the difficulty breathing. She denies any change in urine or stools. No recent trauma or change in activity. Patient noted to be hypoxic on arrival on room air by nursing staff and was placed on oxygen via nasal cannula with improvement. PAST MEDICAL HISTORY:See Below PAST SURGICAL HISTORY:See Below FAMILY HISTORY:See Below SOCIAL HISTORY:See Below HOME MEDICATIONS:See Below ALLERGIES:See Below VITALS:See Below PHYSICAL EXAMINATION: GENERAL: alert, well appearing, well nourished, no distress, non-toxic EYE EXAM: normal conjunctiva, PERRL and EOM's grossly intact OROPHARYNX: no exudate, no erythema, lips, buccal mucosa, and tongue normal and mucous membranes are moist NECK: supple, no nuchal rigidity, no adenopathy, non-tender LUNGS: Decreased bilaterally to auscultation. Normal chest wall mechanics, no w/r/r HEART: no murmurs, S1 normal and S2 normal ABDOMEN: abdomen soft, non-tender, normo-active bowel sounds, no masses, no rebound or guarding. SKIN: no rashes, petechiae, orbruising UPPER EXTREMITIES: upper extremities are grossly normal. FROM, nml pulses b/l. LOWER EXTREMITIES: 2+ bilateral pitting edema. FROM, nml pulses b/l. NEURO EXAM: Normal sensorium, cranial nerves II-XII grossly intact, normal speech, no facial droop,nogross weakness of arms, no gross weakness of legs. Gross sensation intact. No ataxia. Vital Signs: reviewed and remarkable Differential Diagnosis: pneumonia, bronchitis, COPD/Asthma exacerbation, pneumothorax, pulmonary embolism, congestive heart failure, acute coronary syndrome, as well as others were considered MEDICAL DECISION MAKING: This is a 69 yo female who presents to the ER with concern for shortness of breath. Patient noted to be hypoxia on RA on arrival and started on oxygen via NC, other VS stable. Labs drawn and sent, IV established, EKG and CXR performed and interpreted at bedside, and patient placed on telemetry. CXR showed pulm mishel and pleural effusion. Patient with hx of CHF and does admit to dietary indiscretion. She did not take her usual meds today but states she typically takes them. She was also noted to be persistently hypertensive despite reporting she felt improved on oxygen. She was given lasix 40 mg and nitro paste. Patient then had persistent hypoxia and sob andoxygen titrated up and patient ultimately placed on bipap with improvement. Nasal swab sent for viral panel and positive for COVID. Decadron added. Patient's BNP elevated. She was noted to have anemia, however stable compared to prior. All results discussed with patient and family at bedside. Discussed with hospitalist team for additional evaluation and mgmt. Consultation(s): 0703: Discussed with Dr. Conrad, [place] hospitalist team, for additional evaluation and mgmt. ER Treatment Provided: See below 0625: Patient with increased shortness of breath now despite oxygen via nasal cannula. Nursing staff titrated oxygen up and changed her to an oxime mask. Patient appeared to be tripoding and complained that she was having increased difficulty breathing despite initially having relief while on oxygen via nasal cannula. Respiratory contacted to initiate BiPAP. Diagnostics Interpreted By Me: -ECG: Normal sinus at 78, normal axis, normal intervals, no acute ST/T wave changes -Cardiac Monitoring: An order was placed for continuous cardiac monitoring. The monitor shows a rate of 80 with normal sinus rhythm. -Laboratory studies: As stated above and show below. -Imaging studies: cxr: Mild cardiomegaly noted, no wide mediastinum, bilateral pleural effusions worse on the right and b/l pulmonary edema noted Triage Nursing Note Reviewed Prior/Outside Records Reviewed -cardiology consultation from her admission in September 2024 reviewed, echo from that admission also reviewed Critical Care: Critical care of 52 min performed to assess and manage high likelihood of life-threatening acute hypoxic respiratory failure, involving labs and imaging performed with assessment to evaluate dyspnea and hypoxia diagnosis with frequent reassessment. This time includes bedside time, treatment discussions with patient/family/consultants, documentation time and excludes procedure time. Past Med/Surg History Problem List (Updated 10/24/24 @ 22:36 by Bev Mccollum, ) COVID-19 (Acute) Acute hypoxic respiratory failure COVID-19 Pulmonary edema (Acute) Hypoxia (Acute) Bilateral edema of lower extremity (Acute) Dyspnea (Acute) Nephrotic range proteinuria Dyspnea on minimal exertion (Acute) CHF (congestive heart failure) (Acute) Chronic kidney disease (Acute) History of angina Burn of foot, right, second degree Pleural effusion Pericardial effusion Exertional angina Acute heart failure with mildly reduced ejection fraction (HFmrEF, 41-49%) Anemia Type 2 diabetes mellitus Chest pain Blister (Acute) Hypoxia (Acute) Elevated troponin (Acute) ONEIL (acute kidney injury) (Acute) CHF (congestive heart failure) (Acute) Hypoxia Elevated troponin Paroxysmal atrial fibrillation ONEIL (acute kidney injury) Wound of right foot (Acute) Diabetes mellitus type 2, uncontrolled, with complications Hypertension (Acute) Anxiety and depression Diabetic neuropathy Asymptomatic hypertensive urgency Hypertensive emergency (Acute) Homonymous hemianopsia Encephalopathy (Acute) Mitral regurgitation Neuropathic pain of both feet Edema of both legs (Acute) Elevated vitamin B12 level Type 2 diabetes mellitus with hyperosmolar hyperglycemic state (HHS) (Acute) RBBB Type II diabetes mellitus with neurological manifestations, uncontrolled (Chronic) Noncompliance with treatment plan (Acute) Lichen sclerosus et atrophicus (Acute) Medical History Acute on chronic heart failure with preserved ejection fraction (HFpEF, >= 50%) Bilateral ankle joint pain Type 2 diabetes mellitus, uncontrolled Proteinuria Hypokalemia Diarrhea Fall Hypomagnesemia Acute UTI Weakness Acute UTI Sepsis Prolonged QT interval Non-convulsive status epilepticus Pulmonary edema Hyperosmolar hyperglycemic state (HHS) Acute metabolic encephalopathy Severe sepsis Complicated UTI (urinary tract infection) Lactic acidosis HHS (hypothenar hammer syndrome) Elevated troponin Unresponsive state DKA (diabetic ketoacidosis) Sepsis Hyponatremia Hyperlipidemia Surgical History History of lumbar surgery L4-L5 H/O total hysterectomy Family History Father Diabetes Prostate cancer Grandmother Diabetes Aunt Colorectal cancer Brother Stroke Denies family history of Ovarian cancer Myocardial infarction Breast cancer Social History Smoking Status: Never smoker Tobacco Type: E-cigarettes / Vaping Second Hand Exposure: No; Do You Dip or Chew Tobacco: No; Hx Alcohol Use: No Hx Substance Use: No Preferred Language: [place] Communication Ability: Effective Communication Ability Comment: Patient reports she has trouble seeing Visual Impairment: No Limitations Hearing Ability: Normal Visual Developer Required: No Beliefs That Will Affect Care: None marital status: Current Living Situation: Spouse Current Living Situation Comment: Lives with spouse current occupational status: retired 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 How many Children do You have: 3 Feels Safe at Home: Yes Childhood Exposure to Second-Hand Smoke: No Diet: regular Diet Comment: added more salads to diet. caffeine: Yes (soda 3 x week) during the past year weight has: remained stable Dental Care, Regularly: No Physical Activity Frequency: Does not Exercise Seatbelt Use: always Sunscreen Use: No Do you think of yourself as: straight/heterosexual Gender Identity: Female Assistive Devices: Cane and Walker Allergies Allergies Allergy/AdvReac Type Severity Reaction Status Date / Time sglt2 Allergy Severe uti Uncoded 10/23/24 10:27 Home Meds Home Medications Medication Instructions Recorded Confirmed sertraline 50 mg tablet 50 mg PO DAILY 08/15/24 10/23/24 carvedilol 6.25 mg tablet 3.125 mg PO BID 10/23/24 10/23/24 Previous Rx's Medication Instructions Recorded lancets 33 gauge (OneTouch Delica #100 ea 05/28/23 Plus Lancet) aspirin 81 mg tablet,delayed 81 mg PO QAM #30 tabs 03/18/24 release OneTouch Verio test strips (blood #100 ea 03/22/24 sugar diagnostic) blood sugar diagnostic (Accu-Chek #100 ea 03/24/24 Elvira Plus test strips) blood-glucose meter,continuous #1 ea 03/30/24 (Dexcom G7 Director Of Speech Pathology) blood-glucose sensor (Dexcom G7 #4 ea 04/25/24 Sensor device) pen needle, diabetic 32 gauge x #100 ea 09/12/24 5/32" (BD Ultra-Fine Snow Pen Needle) apixaban 5 mg tablet (Eliquis) 5 mg PO BID 30 days #60 tabs 09/28/24 ferrous sulfate 325 mg (65 mg 325 mg PO DAILY #14 tabs 09/28/24 iron) tablet furosemide 40 mg tablet (Lasix) 40 mg PO QAM #30 tabs 10/07/24 hydralazine 50 mg tablet 75 mg (1.5 x 50 mg) PO TID #135 10/07/24 tabs insulin degludec 100 unit/mL (3 8 unit (0.08 mL) subcut DAILY #15 10/07/24 mL) subcutaneous pen (Tresiba mL FlexTouch U-100 insulin) isosorbide mononitrate 60 mg 60 mg PO DAILY #30 tabs 10/07/24 tablet,extended release 24 hr losartan 25 mg tablet 25 mg PO QAM #30 tabs 10/07/24 amlodipine 10 mg tablet 5 mg (1/2 x 10 mg) PO DAILY #30 10/18/24 tabs dexamethasone 6 mg tablet 6 mg PO DAILY #5 tabs 10/24/24 Results & Data (ED) Vital Signs Vital Signs - 24 hr 10/23/24 04:52 10/23/24 05:00 10/23/24 05:06 Temperature 37.2 C Temperature Source Temporal Artery Scan Pulse Rate 81 Pulse Rate [Apical] 79 Pulse Rhythm Regular Pulse Strength Normal Respiratory Rate 19 24 Respiratory Effort / Characteristics Non-Labored Spontaneous Labored Respiratory Depth Normal Respiratory Pattern Tachypnea Blood Pressure 186/99 H Blood Pressure [Right Arm] 204/113 H Blood Pressure Mean 128 Blood Pressure Mean [Right Arm] 143 Blood Pressure Position Sitting Pulse Oximetry 88 L 86 L 94 Oxygen Delivery Method Room Air Room Air Nasal Cannula Oxygen Flow Rate 0 4 Sepsis Recent Fever Within 48 Hours No Sepsis New/Unexplained Change in Mental Status N/A Sepsis Action Taken by Nursing No Action Required Oxygen Flow Rate - Titration 4 Pulse Oximetry Post Tiitration 94 10/23/24 05:07 10/23/24 05:12 10/23/24 06:15 Temperature Temperature Source Pulse Rate 79 Pulse Rate [Apical] Pulse Rhythm Pulse Strength Respiratory Rate Respiratory Effort / Characteristics Labored Respiratory Depth Respiratory Pattern Blood Pressure Blood Pressure [Right Arm] Blood Pressure Mean Blood Pressure Mean [Right Arm] Blood Pressure Position Pulse Oximetry 90 Oxygen Delivery Method Nasal Cannula Nasal Cannula Oxygen Flow Rate 4 6 Sepsis Recent Fever Within 48 Hours Sepsis New/Unexplained Change in Mental Status Sepsis Action Taken by Nursing Oxygen Flow Rate - Titration 11 Pulse Oximetry Post Tiitration 93 Laboratory Data 10/24/24 07:35 10/24/24 07:35 Lab Results 10/23/24 10/23/24 Range/Units 05:15 05:21 WBC 7.97 (4.8-10.8) K/ul RBC 2.87 L (4.20-5.40) M/uL Hgb 8.8 L (12.0-16.0) g/dl Hct 25.3 L (37.0-47.0) % MCV 88.2 (80.0-100.0) fL MCH 30.7 (25.0-34.0) pg MCHC 34.8 (32.0-36.0) g/dL RDW Std Deviation 45.2 (36.4-46.3) fL RDW Coeff of Abel 14.1 (11.5-14.5) % Plt Count 145 (130-400) K/uL MPV 9.1 L (9.4-12.4) fL Immature Gran % (Auto) 0.4 % Neut % (Auto) 75.0 % Lymph % (Auto) 13.3 % [place] % (Auto) 8.0 % Eos % (Auto) 2.8 % Baso % (Auto) 0.5 % Neut # (Auto) 5.98 (1.40-6.50) K/uL Lymph # (Auto) 1.06 L (1.20-3.40) K/uL [place] # (Auto) 0.64 H (0.11-0.59) K/uL Eos # (Auto) 0.22 (0.00-0.50) K/uL Baso # (Auto) 0.04 (0.00-0.20) K/uL Immature Gran # (Auto) 0.03 (0.01-0.20) K/uL PT 10.8 (9.0-12.0) Seconds INR 1.0 (0.9-1.1) VBG pH 7.41 (7.36-7.41) VBG pCO2 33 L (38-50) mmHg VBG pO2 54 mmHg VBG HCO3 21 mmol/L VBG O2 Saturation 88.4 % VBG Base Excess -2.9 mEq/L Sodium 140 (136-145) mmol/L Potassium 4.3 (3.5-5.1) mmol/L Chloride 110 H (98-107) mmol/L Carbon Dioxide 21 (21-32) mmol/L Anion Gap 9 (3-11) BUN 51 H (6-23) mg/dl Creatinine 2.20 H (0.6-1.2) mg/dl Est Cr Clr Drug Dosing 25.0 ml/min eGFR 23.97 BUN/Creatinine Ratio 23.2 H (10-20) Glucose 262 H (70-99(Fasting)) mg/dl Calcium 8.5 L (8.6-10.3) mg/dl Magnesium 2.1 (1.7-2.4) mg/dl Total Bilirubin 1.5 H (0.2-1.0) mg/dl AST 23 (13-39) U/L ALT 26 (7-52) U/L Alkaline Phosphatase 81 (34-104) U/L Troponin I High Sens 14.3 H (0-14) pg/ml C-Reactive Protein < 0.50 (0-0.5) mg/dl B-Natriuretic Peptide 925 H (0-100) pg/ml Total Protein 6.2 (6.0-8.3) gm/dl Albumin 3.8 (3.4-5.0) gm/dl Globulin 2.4 L (2.5-4.0) gm/dl Albumin/Globulin Ratio 1.6 (0.9-2) Procalcitonin < 0.02 (0-0.5) ng/ml TSH 5.794 H (0.300-4.500) uIu/ml Free T4 0.71 (0.61-1.60) ng/dl Adenovirus (PCR) Not Detected (NotDetected) B. pertussis DNA (PCR) Not Detected (NotDetected) B.parapertussis DNA PCR Not Detected (NotDetected) C. pneumoniae DNA (PCR) Not Detected (NotDetected) Coronavirus OC43 (PCR) Not Detected (NotDetected) Coronavirus HKU1 (PCR) Not Detected (NotDetected) Coronavirus 229E (PCR) Not Detected (NotDetected) SARS-CoV-2 (PCR) DETECTED A (NotDetected) Coronavirus NL63 (PCR) Not Detected (NotDetected) Human Metapneumovir PCR Not Detected (NotDetected) Influenza Type A (PCR) Not Detected (NotDetected) Influenza Type B (PCR) Not Detected (NotDetected) M. pneumoniae (PCR) Not Detected (NotDetected) Parainfluenza 1 (PCR) Not Detected (NotDetected) Parainfluenza 2 (PCR) Not Detected (NotDetected) Parainfluenza 3 (PCR) Not Detected (NotDetected) Parainfluenza 4 (PCR) Not Detected (NotDetected) RSV (PCR) Not Detected (NotDetected) Entero/Rhino (PCR) Not Detected (NotDetected) Administered Medications Discontinued Medications Amlodipine Besylate (Amlodipine Besylate 5 Mg Tab) 5 mg PO NOW STA Stop: 10/23/24 07:33 Last Admin: 10/23/24 08:03 Dose: 5 mg Documented By: JACOBY Amlodipine Besylate (Amlodipine Besylate 5 Mg Tab) 5 mg PO DAILY [facility] Stop: 11/23/24 08:59 Last Admin: 10/24/24 09:23 Dose: 5 mg Documented By: GENIA Apixaban (Apixaban 5 Mg Tablet) 5 mg PO ONE STA Stop: 10/23/24 07:33 Last Admin: 10/23/24 08:56 Dose: 5 mg Documented By: JACOBY Apixaban (Apixaban 5 Mg Tablet) 5 mg PO BID SUMAYA Stop: 11/22/24 20:59 Last Admin: 10/24/24 09:23 Dose: 5 mg Documented By: Admin: 10/23/24 20:53 Dose: 5 mg Documented By: AGA Aspirin (Aspirin 81 Mg Ectab) 81 mg PO QAM [facility] Stop: 11/22/24 10:59 Last Admin: 10/24/24 09:24 Dose: 81 mg Documented By: Admin: 10/23/24 12:21 Dose: 81 mg Documented By: GENIA Carvedilol (Carvedilol 3.125 Mg Tab) 3.125 mg PO NOW STA Stop: 10/23/24 07:33 Last Admin: 10/23/24 08:03 Dose: 3.125 mg Documented By: JACOBY Carvedilol (Carvedilol 3.125 Mg Tab) 3.125 mg PO BID SUMAYA Stop: 11/22/24 20:59 Last Admin: 10/24/24 09:23 Dose: 3.125 mg Documented By: Admin: 10/23/24 20:53 Dose: 3.125 mg Documented By: AGA Dexamethasone Sodium Phosphate (DexamethasonePf 10 Mg/Ml Vial) 6 mg IV NOW ONE Stop: 10/23/24 06:27 Last Admin: 10/23/24 06:32 Dose: 6 mg Documented By: VIMAL Ferrous Sulfate (Ferrous Sulfate 325 Mg Tab) 325 mg PO DAILY SUMAYA Stop: 11/23/24 08:59 Last Admin: 10/24/24 09:24 Dose: 325 mg Documented By: GENIA Furosemide (Furosemide 40 Mg/4 Ml Vial) 40 mg IV ONE ONE Stop: 10/23/24 06:02 Last Admin: 10/23/24 06:08 Dose: 40 mg Documented By: VIMAL Furosemide (Furosemide 40 Mg/4 Ml Vial) 40 mg IV BID17 SUMAYA Stop: 11/22/24 16:59 Last Admin: 10/24/24 09:22 Dose: 40 mg Documented By: Admin: 10/23/24 17:08 Dose: 40 mg Documented By: GENIA Hydralazine HCl (Hydralazine Hcl 25 Mg Tab) 75 mg PO NOW STA Stop: 10/23/24 07:33 Last Admin: 10/23/24 08:03 Dose: 75 mg Documented By: JACOBY Hydralazine HCl (Hydralazine Hcl 25 Mg Tab) 75 mg PO TID SUMAYA Stop: 11/22/24 13:59 Last Admin: 10/24/24 13:36 Dose: 75 mg Documented By: Admin: 10/24/24 09:22 Dose: 75 mg Documented By: Admin: 10/23/24 20:53 Dose: 75 mg Documented By: Admin: 10/23/24 12:21 Dose: 75 mg Documented By: GENIA Insulin Aspart (Insulin Aspart Per Unit Charge) 0 units SC ACHS [facility] Stop: 11/22/24 23:29 Last Admin: 10/24/24 14:00 Dose: 4 units Documented By: GENIA Co-signed By: HERMELINDO Admin: 10/24/24 08:48 Dose: 6 units Documented By: GENIA Co-signed By: HERMELINDO Admin: 10/24/24 00:28 Dose: Not Given Documented By: AGA Insulin Glargine (Lantus Per Unit Charge) 8 units SQ [facility] Stop: 11/22/24 10:59 Last Admin: 10/24/24 08:48 Dose: 8 units Documented By: GENIA Co-signed By: HERMELINDO Admin: 10/23/24 12:42 Dose: 8 units Documented By: GENIA Co-signed By: SUZANNE Isosorbide Mononitrate (Isosorbide [place] Extended Rel 60 Mg Tabcr) 60 mg PO ONE STA Stop: 10/23/24 07:33 Last Admin: 10/23/24 08:56 Dose: 60 mg Documented By: JACOBY Isosorbide Mononitrate (Isosorbide [place] Extended Rel 60 Mg Tabcr) 60 mg PO DAILY [facility] Stop: 11/23/24 08:59 Last Admin: 10/24/24 09:24 Dose: 60 mg Documented By: GENIA Losartan Potassium (Losartan Potassium 25 Mg Tab) 25 mg PO ONE STA Stop: 10/23/24 07:33 Last Admin: 10/23/24 08:56 Dose: 25 mg Documented By: JACOBY Losartan Potassium (Losartan Potassium 25 Mg Tab) 25 mg PO QAM [facility] Stop: 11/23/24 08:59 Last Admin: 10/24/24 09:23 Dose: 25 mg Documented By: GENIA Miscellaneous Information (Patient's Allergy Info Needs Entered) 1 each N/A Q30M [facility] Stop: 11/22/24 09:44 Last Admin: 10/23/24 10:38 Dose: Not Given Documented By: Admin: 10/23/24 09:57 Dose: 1 each Documented By: GENIA Nitroglycerin (Nitroglycerin 2% Ointment 30gm Tube) 1 inch EXT NOW STA Stop: 10/23/24 06:25 Last Admin: 10/23/24 06:32 Dose: 1 inch Documented By: VIMAL Sertraline HCl (Sertraline Hcl 50 Mg Tablet) 50 mg PO DAILY [facility] Stop: 11/22/24 10:59 Last Admin: 10/24/24 09:24 Dose: 50 mg Documented By: [facility] Admin: 10/23/24 12:21 Dose: 50 mg Documented By: [facility] Discharge Plan Visit Data Chief Complaint: Respiratory Problems Stated Complaint: TROUBLE BREATHING ED Provider: Bev Mccollum Discharge Problem: Dyspnea, Bilateral edema of lower extremity, Hypoxia, Pulmonary edema, COVID-19 Patient Disposition: Admitted As Inpatient Discharge Instructions Interventions: ED Discharge Assessment Last Done: 10/23/24 09:01
[2024-10-23 06:08] LABS: Prothrombin Time 10.8 Seconds (9.0-12.0)
[2024-10-23] MEDS: FUROSEMIDE 40 MG/4 ML VIAL IV ONE (06:08)
[2024-10-23 06:19] LABS: Adenovirus PCR Not Detected (NotDetected); Bordetella parapertussis PCR Not Detected (NotDetected); Bordetella pertussis PCR Not Detected (NotDetected); Chlamydia pneumoniae PCR Not Detected (NotDetected); Coronavirus 229E PCR Not Detected (NotDetected); Coronavirus CoV-2 (COVID19)PCR DETECTED (NotDetected); Coronavirus HKU1 PCR Not Detected (NotDetected); Coronavirus NL63 PCR Not Detected (NotDetected); Coronavirus OC43PCR Not Detected (NotDetected); Human Metapneumovirus PCR Not Detected (NotDetected); Influenza A PCR Not Detected (NotDetected); Influenza B PCR Not Detected (NotDetected); Mycoplasma pneumoniae PCR Not Detected (NotDetected); Parainfluenza Virus 1 PCR Not Detected (NotDetected); Parainfluenza Virus 2 PCR Not Detected (NotDetected); Parainfluenza Virus 3 PCR Not Detected (NotDetected); Parainfluenza Virus 4 PCR Not Detected (NotDetected); Respiratory Syncytial VirusPCR Not Detected (NotDetected); Rhinovirus/Enterovirus PCR Not Detected (NotDetected)
[2024-10-23] MEDS: dexAMETHasone**PF** 10 MG/ML VIAL IV ONE (06:32)
[2024-10-23] MEDS: NITROGLYCERIN 2% OINTMENT 30GM TUBE EXT STA (06:32)
[2024-10-23 06:36] LABS: T4 Free Thyroxine 0.71 ng/dl (0.61-1.60)
--- NOTE | 2024-10-23 07:01 | XRay Report ---
EXAM: XR chest 1V portable CLINICAL HISTORY: SOB SDM TECHNIQUE: An X-ray image of the chest is obtained in 1 AP projection. COMPARISON: No prior studies are available for comparison. FINDINGS: Pulmonary Parenchyma: Lungs are clear bilaterally. No evidence of consolidation, collapse, or focal opacities. No pulmonary nodules are identified. Moderate right-side pleural effusion is seen. Mild left-side pleural effusion is seen. Heart and Mediastinum: Enlarged cardiac size with congested hilar vasculature noted. Lorie hilar patchy opaciites are noted. No mediastinal widening or masses. No hilar or mediastinal lymphadenopathy. Bony Thorax: The bony thorax appears intact without fractures or deformities. Soft Tissues: Soft tissues overlying the chest wall are unremarkable. IMPRESSION: 1. Moderate right-side pleural effusion noted. 2. Cardiomegaly with congested hilar vasculature and evidence of cardiogenic pulmonary edema depicted. Electronically signed by Corrina Anaya 10-23-2024 07:00 AM
[2024-10-23 07:34] LABS: C Reactive Protein < 0.50 mg/dl (0-0.5)
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
[2024-10-23] MEDS: amLODIPine BESYLATE 5 MG TAB PO STA (08:03)
[2024-10-23] MEDS: carvediloL 3.125 MG TAB PO STA (08:03)
[2024-10-23] MEDS: hydrALAZINE HCL 25 MG TAB PO STA (08:03)
[2024-10-23] MEDS: ISOSORBIDE MONO EXTENDED REL 60 MG TABCR PO STA (08:56)
[2024-10-23] MEDS: LOSARTAN POTASSIUM 25 MG TAB PO STA (08:56)
[2024-10-23] MEDS: APIXABAN 5 MG TABLET PO STA (08:56)
[2024-10-23] MEDS ORDERED: DOCUSATE SODIUM 100 MG CAP PO PRN (09:12)
[2024-10-23] MEDS ORDERED: ONDANSETRON INJ 2 MG/ML 2 ML VIAL IV PRN (09:12)
[2024-10-23] MEDS ORDERED: ACETAMINOPHEN 325 MG TAB PO PRN (09:12)
[2024-10-23] MEDS ORDERED: GLUCOSE 10 TAB/TUBE PO PRN (09:12)
[2024-10-23] MEDS ORDERED: DEXTROSE 50% 50 ML SYRINGE IV PRN (09:12)
[2024-10-23] MEDS ORDERED: GLUCOSE 40% GEL 15 GM TUBE PO PRN (09:12)
[2024-10-23] MEDS ORDERED: GLUCAGON FOR INJ 1 MG VIAL SQ PRN (09:12)
[2024-10-23] MEDS ORDERED: CARBOHYDRATES FOR HYPOGLYCEMIA PO PRN (09:12)
[2024-10-23] MEDS ORDERED: REMDESIVIR 200 MG in SODIUM CHLORIDE 0.9% 210 ML IV ONE (09:45)
[2024-10-23] MEDS: Patient's ALLERGY Info needs ENTERED SCH (09:57)
[2024-10-23] MEDS: hydrALAZINE HCL 25 MG TAB PO SCH (12:21)
[2024-10-23] MEDS: ASPIRIN 81 MG ECTAB PO SCH (12:21)
[2024-10-23] MEDS: SERTRALINE HCL 50 MG TABLET PO SCH (12:21)
[2024-10-23] MEDS: LANTUS PER UNIT CHARGE SQ SCH (12:42)
[2024-10-23] MEDS: FUROSEMIDE 40 MG/4 ML VIAL IV SCH (17:08)
[2024-10-23] MEDS: APIXABAN 5 MG TABLET PO SCH (20:53)
[2024-10-23] MEDS: carvediloL 3.125 MG TAB PO SCH (20:53)
[2024-10-24] MEDS: INSULIN ASPART PER UNIT CHARGE SC SCH (00:28)
[2024-10-24 08:09] LABS: Basophils # (auto) 0.03 K/uL (0.00-0.20); Basophils % (auto) 0.5 %; Eosinophils # (auto) 0.15 K/uL (0.00-0.50); Eosinophils % (auto) 2.3 %; Hematocrit (blood only) 24.6 % (37.0-47.0); Hemoglobin 8.6 g/dl (12.0-16.0); Immature Granulocytes # (auto) 0.03 K/uL (0.01-0.20); Immature Granulocytes % (auto) 0.5 %; Lymphocytes # (auto) 1.46 K/uL (1.20-3.40); Mean Corpuscular Hemoglobin 31.3 pg (25.0-34.0); Mean Corpuscular Volume 89.5 fL (80.0-100.0); Mean Platelet Volume 9.4 fL (9.4-12.4); Monocytes % (auto) 10.5 %; Neutrophils # (auto) 4.28 K/uL (1.40-6.50); Neutrophils % (auto) 64.2 %; Platelet Count 157 K/uL (130-400); RDW Coefficient of Variation 14.5 % (11.5-14.5); RDW Standard Deviation 46.8 fL (36.4-46.3); Red Blood Count 2.75 M/uL (4.20-5.40); White Blood Count 6.65 K/ul (4.8-10.8)
--- NOTE | 2024-10-24 08:17 | Hospitalist Progress Note ---
Date of Service October 24, 2024 Assessment & Plan (1) Acute heart failure with mildly reduced ejection fraction (HFmrEF, 41-49%): (2) COVID-19: (3) Acute hypoxic respiratory failure: (4) Asymptomatic hypertensive urgency: (5) Wound of right foot: (6) Nephrotic range proteinuria: (7) Diabetes mellitus type 2, uncontrolled, with complications: Plan 69-year-old female presents with heart failure midrange ejection fraction exacerbation with acute respiratory failure, diagnosis of COVID, acute on chronic kidney injury, risk factors include hypertension with hypertensive urgency and diabetes. Patient required BiPAP in the emergency department and improved with intravenous diuresis Respiratory status stabilized with BiPAP and diuresis. Patient treated for COVID with dexamethasone. For patient's hypertensive urgency the patient did not take her home antihypertensive medications these include isosorbide and diuresis with Lasix. She previously was on losartan for nephrotic range proteinuria and has a current acute kidney injury which we will watch cautiously with a diuresis. Mild elevation of troponin likely from demand ischemia For the patient's diabetes last A1c was low continues on cautious doses of Lantus Patient has a gangrenous wound in her foot which is concerning with her history of diabetes this is present on admission and was present on her last admission Chronic stable diagnoses: Anemia of chronic disease Paroxysmal atrial fibrillation in sinus rhythm on presentation- continue Eliquis and carvedilol depression - continue sertraline VTE ppx: Eliquis heart healthy, low Na, fluid restricted once Bipap titrated off Admission and Anticipated Discharge Date Admission Date: October 23, 2024 Results & Data Results & Data Vital Signs (Past 12 Hours) Vital Signs Temp Pulse Pulse Resp BP Pulse Ox O2 Del Method 10/24/24 07:19 98.1 F 70 18 170/83 H 94 Nasal Cannula 10/24/24 06:23 69 10/24/24 02:59 98.1 F 69 18 154/81 H 95 Nasal Cannula 10/24/24 00:42 67 10/23/24 22:59 98.1 F 66 20 147/74 H 94 Room Air 10/23/24 22:44 Nasal Cannula O2 Flow Rate 10/24/24 07:19 2 10/24/24 06:23 10/24/24 02:59 2 10/24/24 00:42 10/23/24 22:59 10/23/24 22:44 2 PG Care Time/CCT Total # of Minutes Spent Total Time Spent with Patient: Total time spent is greater than 50% in coordination of care (as documented) at patient's floor/unit and/or counseling patient: Coding Diagnoses Acute heart failure with mildly reduced ejection fraction (HFmrEF, 41-49%) I50.21 COVID-19 U07.1 Acute hypoxic respiratory failure J96.01 Asymptomatic hypertensive urgency I16.0 Wound of right foot S91.301A Nephrotic range proteinuria R80.9 Diabetes mellitus type 2, uncontrolled, with complications E11.8; E11.65
[2024-10-24 08:23] LABS: Calcium 9.2 mg/dl (8.6-10.3); Creatinine Clr Calc Pharmacy 24.3 ml/min; Magnesium 2.2 mg/dl (1.7-2.4); Potassium 4.4 mmol/L (3.5-5.1)
[2024-10-24] MEDS ORDERED: REMDESIVIR 100 MG in SODIUM CHLORIDE 0.9% 230 ML IV SCH (08:30)
[2024-10-24] MEDS: LOSARTAN POTASSIUM 25 MG TAB PO SCH (09:23)
[2024-10-24] MEDS: amLODIPine BESYLATE 5 MG TAB PO SCH (09:23)
[2024-10-24] MEDS: FERROUS SULFATE 325 MG TAB PO SCH (09:24)
[2024-10-24] MEDS: ISOSORBIDE MONO EXTENDED REL 60 MG TABCR PO SCH (09:24)
[2024-10-24 11:59] VITALS: PULSE 69; RESP 17; TEMP 97.7
[2024-10-24 14:11] VITALS: BP 170/83; O2SAT 91
--- NOTE | 2024-10-24 17:03 | Discharge Summary ---
Discharge Summary Date of Service October 24, 2024 Principal Dx & Hospital Course #1 = Principal Diagnosis (1) Acute heart failure with mildly reduced ejection fraction (HFmrEF, 41-49%): (2) COVID-19: (3) Acute hypoxic respiratory failure: (4) Asymptomatic hypertensive urgency: (5) Wound of right foot: (6) Nephrotic range proteinuria: (7) Diabetes mellitus type 2, uncontrolled, with complications: Plan 69-year-old female presents with heart failure midrange ejection fraction exacerbation with acute respiratory failure, diagnosis of COVID, acute on chronic kidney injury, risk factors include hypertension with hypertensive urgency and diabetes. Patient required BiPAP in the emergency department and resolved symptoms with intravenous diuresis Respiratory status returned to baseline after BiPAP and diuresis. Patient treated for COVID with dexamethasone. For patient's hypertensive urgency the patient did not take her home antihypertensive medications these include isosorbide and diuresis with Lasix. She previously was on losartan for nephrotic range proteinuria and has a current acute kidney injury which we will watch cautiously with a diuresis. Mild elevation of troponin likely from demand ischemia, pt did have some chest pain but she said it always follows fluid retention, did have nuclear perfusion test 09/26/24 negative for ischemia For the patient's diabetes last A1c was low continues on cautious doses of Lantus Patient has a gangrenous wound in her foot which is concerning with her history of diabetes this is present on admission and was present on her last admission Chronic stable diagnoses: Anemia of chronic disease Paroxysmal atrial fibrillation in sinus rhythm on presentation- continue Eliquis and carvedilol depression - continue sertraline VTE ppx: Eliquis heart healthy, low Na, fluid restricted home with teaching for heart failure Admission HPI Per Admitting Provider Patient is a 69-year-old female with a past medical history of HFmrEF, anemia, diabetic neuropathy, paroxysmal A-fib, hypertension. She was recently discharged on 10/07 due to acute heart failure and ONEIL. She had the following medication changes: isosorbide mononitrate increase 30 to 60mg daily, hydralazine increase 50mg to 75mg TID, addition of losartan 25 Mg, addition of Lasix 40 Mg daily. Patient stated she has been taking all of these medications except for the hydralazine, she did not picker feeder the hydralazine from the [facility] so she has been taking only 50 tablets twice daily. she has been consistent with taking her Lasix, using compression stockings and controlling her low-sodium diet. She did however have [employer] at 2 PM yesterday. At 10 PM last night she began with dyspnea at rest and orthopnea. she also endorses a chronic mild dry cough, unchanged. She stated that she has chest pain that she describes as tightness, it waxes and wanes. She stated she has chronic lower extremity edema, relatively unchanged. She does have new onset of abdominal bloating, thought to be secondary to fluid overload. She has chronic constipation with iron supplement, last bowel movement was yesterday. She had 1 episode of vomiting this morning before coming in, she denies nausea, she feels as though it was related to stress. She has also had a headache for 2 days. She has had no sick contacts that she knows of. Patient denies fever, chills, headache, dizziness, lightheadedness, vision changes, rhinorrhea, sore throat, sputum production, abdominal pain, nausea, diarrhea, numbness, tingling. Upon arrival to the ED she was found to be hypoxic, 87% on room air. At this time she was placed on 4 L O2 via nasal cannula. As per nursing patient was doing better, but then started to decline. Although her O2 stats remained stable, patient felt more short of breath. At this point she was transition to BiPAP, the patient stated she has significant improvement with this. VBG within normal limits. She was able to tolerate her p.o. blood pressure medication this morning, which she did not yet take today likely contributing to her elevated blood pressure. Patient has not urinated since being given IV Lasix, once she has some urine output, will trial off BiPAP back to nasal cannula. Patient is agreeable to starting remdesivir and dexamethasone for COVID treatment. She does not use oxygen at baseline. She did not take her home medications this morning. She wishes to be DNR/DNI at this time. Patient's updated at bedside. Discharge Exam pt is back to her baseline cardiac is regular lungs are clear Discharge Plan Discharge Items Patient Disposition: Home - Self-Care Reason For Visit: ACUTE ON CHRONIC HFmrEF Discharge Diagnosis: acute worsening of mid range heart failure Activity: Resume your previous activity Non-emergency contact: Primary Care Provider and Weight And Test Bar Clerk Call non-emergency contact if: your symptoms worsen Follow-up/Referrals: Tory Reynolds CRNP [Primary Care Provider] - 11/01/24 10:00 am (Hospital follow up on at 10 am) Diet: Low Sodium (2gm) Kellietl Attending Provider Instructions: Call 911 and go to the Emergency Room if: * You have tightness or pain in your chest that does not go away with rest or Nitroglycerin * You are very short of breath even with rest Call your doctor if any of the following symptoms or problems start or get worse: * Shortness of breath or difficulty breathing * Wake up at night short of breath * Chest pain * Cough * Swelling of your hands, fee, or legs * More fatigued or tired with your normal activity * Palpitations - sudden fast heart beats WEIGHT * Weigh yourself every morning after using the bathroom. * Use the same scale. * Wear the same amount of clothing. * Write your weight down on your chart. * Call your doctor if you gain more than 2-3 pounds in 1-2 days. if you gain more than 5 pounds a day take an extra lasix(furosemide) 40 mg and call your doctor MEDICATIONS * Use this discharge instruction sheet for instructions. * Take your medications at the time your doctor ordered. * Do not skip a dose of your medicines. * If you miss a dose of medicine, take as soon as possible, but DO NOT DOUBLE A DOSE. * Read your medicine information when you get home. * Know all of the side effects of your medicine. * Call your doctor's office if you have any side effects. * Be sure all of your doctors know what medicine and herbs you take (including cold, flu, and herbal medicine). * Pain Medicine: If you do not get relief from your pain, please call your doctor for help. Take the following with you to your follow-up doctor appointments: * Weight Chart * Medication List * List of questions Do not drink excessive alcohol, beer or wine. Addtl Ecology Teacher Provider Instructions: You have been diagnosed with covid infection, it would be recommended that you quarantine yourself for 5 days from your first test or first symptoms, and if at the 5th day you have no symptoms the you can come off quarantine but use common sense precautions. Quarantine means attempting to stay away from people who have not had an active covid infection in the past, and if you have to be around others to wear a mask even if you are indoors, do not share a room to sleep in with others until you are out of quarantine. If you still have symptoms at the 5th day, continue to quarantine until you are symptom free for 48 hours Pending Studies at Discharge: No Stand-Alone Forms: My [facility], Smoking Cessation Medications and DC Order Prescriptions: New dexamethasone 6 mg tablet 6 mg PO DAILY Qty: 5 0RF Continued (DME) OneTouch Verio test strips Strip See Rx Instructions .Route Qty: 100 11RF Rx Instructions: test blood sugar 3 x daily (DME) Accu-Chek Elvira Plus test strp Strip See Rx Instructions .Route Qty: 100 3RF Rx Instructions: Test 3 times a day (DME) Dexcom G7 Treatment Plant Mechanic Misc See Rx Instructions .Route Qty: 1 0RF Rx Instructions: As directed (DME) Dexcom G7 Sensor Device See Rx Instructions .Route Qty: 4 5RF Rx Instructions: test 4-5 times a day (DME) pen needle, diabetic [BD Ultra-Fine Snow Pen Needle] 32 gauge x 5/32" needle See Rx Instructions .Route Qty: 100 3RF Rx Instructions: use once daily (DME) lancets [OneTouch Delica Plus Lancet] 33 gauge misc See Rx Instructions .Route Qty: 100 11RF Rx Instructions: test blood sugar 3 x daily amlodipine 10 mg tablet 5 mg PO DAILY Qty: 30 0RF aspirin 81 mg Tablet,Delayed Release (Dr/Ec) 81 mg PO QAM Qty: 30 0RF Rx Instructions: otc Eliquis 5 mg Tablet 5 mg PO BID 30 Days Qty: 60 0RF ferrous sulfate 325 mg (65 mg iron) tablet 325 mg PO DAILY Qty: 14 0RF isosorbide mononitrate 60 mg Tablet Extended Release 24 Hr 60 mg PO DAILY Qty: 30 0RF losartan 25 mg Tablet 25 mg PO QAM Qty: 30 0RF furosemide [Lasix] 40 mg tablet 40 mg PO QAM Qty: 30 0RF hydralazine 50 mg tablet 75 mg PO TID Qty: 135 0RF Rx Instructions: Recently increased to 75 mg, has been taking 50 mg dose. "they haven't given me the new ones yet." insulin degludec [Tresiba FlexTouch U-100] 100 unit/mL (3 mL) insulin pen 8 unit subcut DAILY Qty: 15 0RF carvedilol 6.25 mg tablet 3.125 mg PO BID sertraline 50 mg tablet 50 mg PO DAILY Discharge Orders: Discharge Order (Routine); Ordered 10/24/24 Ordered By: Gadiel Priest Admission Data Admit Date/Time: 10/23/24 07:19 Attending Provider: Gadiel Priest Admit Provider: Jake Conrad Primary Care Provider: Tory Reynolds Other Providers: Jake Conrad Other Interventions: Discharge Summary Assessment (RN) Last Done: 10/24/24 14:09 Hospital Stay Data Consultations 10/23/24 07:03 ED Decision to Admit Stat Pending Results Patient Have Any Pending Studies at Discharge: No Discharge Instructions Given to Patient (Per Discharging Provider) Call 911 and go to the Emergency Room if: * You have tightness or pain in your chest that does not go away with rest or Nitroglycerin * You are very short of breath even with rest Call your doctor if any of the following symptoms or problems start or get worse: * Shortness of breath or difficulty breathing * Wake up at night short of breath * Chest pain * Cough * Swelling of your hands, fee, or legs * More fatigued or tired with your normal activity * Palpitations - sudden fast heart beats WEIGHT * Weigh yourself every morning after using the bathroom. * Use the same scale. * Wear the same amount of clothing. * Write your weight down on your chart. * Call your doctor if you gain more than 2-3 pounds in 1-2 days. if you gain more than 5 pounds a day take an extra lasix(furosemide) 40 mg and call your doctor MEDICATIONS * Use this discharge instruction sheet for instructions. * Take your medications at the time your doctor ordered. * Do not skip a dose of your medicines. * If you miss a dose of medicine, take as soon as possible, but DO NOT DOUBLE A DOSE. * Read your medicine information when you get home. * Know all of the side effects of your medicine. * Call your doctor's office if you have any side effects. * Be sure all of your doctors know what medicine and herbs you take (including cold, flu, and herbal medicine). * Pain Medicine: If you do not get relief from your pain, please call your doctor for help. Take the following with you to your follow-up doctor appointments: * Weight Chart * Medication List * List of questions Do not drink excessive alcohol, beer or wine. Total Time Total Time Spent Total Time Spent (In Minutes): It required greater than 30 minutes to prepare this patient for discharge. Coding Level of Care Code 54582 INP/OBS DISCH >30 MIN Diagnoses Acute heart failure with mildly reduced ejection fraction (HFmrEF, 41-49%) I50.21 COVID-19 U07.1 Acute hypoxic respiratory failure J96.01 Asymptomatic hypertensive urgency I16.0 Wound of right foot S91.301A Nephrotic range proteinuria R80.9 Diabetes mellitus type 2, uncontrolled, with complications E11.8; E11.65
--- NOTE | 2024-10-25 16:12 | Electrocardiogram Report ---
Test Reason : Blood Pressure : */* mmHG Vent. Rate : 78 BPM Atrial Rate : 78 BPM P-R Int : 132 ms QRS Dur : 92 ms QT Int : 400 ms P-R-T Axes : 13 23 48 degrees QTcB Int : 456 ms Normal sinus rhythm Normal ECG When compared with ECG of 04-Oct-2024 01:23, T wave inversion less evident in Anterior leads Confirmed by Adria Ryan ([id number]) on 10/25/2024 4:11:41 PM Referred By: REFERRED SELF Confirmed By: Adria Ryan
== END 2024-10-24 15:24 | disposition home or self-care (01) | DRG 291 ==
LOC: ED 04:46 → SUATTDRO 07:19 → 2S 07:19

== ENCOUNTER 2025-03-01 07:56 | Inpatient (IN) ==
[2025-03-01 08:28] LABS: Basophils # (auto) 0.04 K/uL (0.00-0.20); Basophils % (auto) 0.6 %; Eosinophils % (auto) 2.8 %; Hematocrit (blood only) 27.6 % (37.0-47.0); Hemoglobin 9.3 g/dl (12.0-16.0); Immature Granulocytes # (auto) 0.02 K/uL (0.01-0.20); Immature Granulocytes % (auto) 0.3 %; Lymphocytes # (auto) 0.83 K/uL (1.20-3.40); Lymphocytes % (auto) 11.7 %; Mean Corpuscular Hemoglobin 29.4 pg (25.0-34.0); Mean Corpuscular Hgb Conc 33.7 g/dL (32.0-36.0); Mean Corpuscular Volume 87.3 fL (80.0-100.0); Mean Platelet Volume 10.3 fL (9.4-12.4); Monocytes # (auto) 0.55 K/uL (0.11-0.59); Monocytes % (auto) 7.8 %; Neutrophils # (auto) 5.43 K/uL (1.40-6.50); Neutrophils % (auto) 76.8 %; Platelet Count 184 K/uL (130-400); RDW Coefficient of Variation 14.3 % (11.5-14.5); RDW Standard Deviation 45.3 fL (36.4-46.3); Red Blood Count 3.16 M/uL (4.20-5.40); White Blood Count 7.07 K/ul (4.8-10.8)
--- NOTE | 2025-03-01 08:44 | XRay Report ---
XR chest 1V portable HISTORY: 69 years-old Female Dyspnea acute shortness of breath COMPARISON: 11/09/2024 TECHNIQUE: AP view of the chest FINDINGS: Cardiac silhouette is enlarged. Pulmonary vascular congestion with interstitial coarsening. Layering pleural effusions with dependent bibasilar consolidation. Findings are stable from prior. No pneumoth orax. Bones appear grossly intact. IMPRESSION: 1. Cardiomegaly with interstitial pulmonary edema. 2. Layering pleural effusions with bibasilar consolidation favoring atelectasis. Pneumonia considered less likely. ACT 112: Negative or not required by law. The above report was generated using voice recognition software. It may contain grammatical, syntax o r spelling errors. Electronically signed by: Skip Evans M.D. 03/01/2025 8:42 AM
[2025-03-01 08:52] LABS: Albumin Globulin Ratio 1.5 (0.9-2); Albumin Level 4.1 gm/dl (3.4-5.0); BUN Creatinine Ratio 18.9 (10-20); Bilirubin,Total 1.1 mg/dl (0.2-1.0); Calcium 9.7 mg/dl (8.6-10.3); Creatinine Clr Calc Pharmacy 14.2 ml/min; Globulin 2.8 gm/dl (2.5-4.0); Potassium 4.2 mmol/L (3.5-5.1); Total Protein 6.9 gm/dl (6.0-8.3)
[2025-03-01 09:17] LABS: Appearance Urine Turbid (Clear); Bacteria Urine Automated 4+ (None Seen); Bilirubin Urine Negative (Negative); Blood Urine 3+ (Negative); Color Urine Yellow; Epithelial Cell Urine Auto 0-2 /hpf (0-2); Glucose Urine UA Trace (Negative); Hyaline Casts Urine Present /lpf (None Presnt); Ketones Urine Negative (Negative); Leukocyte Esterase Urine 3+ (Negative); Nitrite Urine Negative (Negative); Protein Urine 3+ (Negative); RBC Urine Automated >20 /hpf (0-2); Specific Gravity Urine 1.013 (1.000-1.030); Urobilinogen Urine Negative (Negative); WBC Urine Automated >50 /hpf (0-5); pH Urine 5.5 (4.5-7.5)
[2025-03-01] MEDS: cefTRIAXone SODIUM 2,000 MG/50 ML BAG IV STA (09:55)
--- NOTE | 2025-03-01 10:03 | History & Physical Report ---
Date of Service March 01, 2025 Assessment & Plan (1) Acute on chronic heart failure with mildly reduced ejection fraction (H FmrEF, 41-49%): (2) Acute kidney injury superimposed on stage 4 chronic kidney disease: (3) Diabetes type 2, controlled: (4) Atrial fibrillation: Plan 69-year-old with heart failure with midrange range ejection fraction, atrial fibrillation, CKD stage IV as well as type 2 diabetes on insulin who was admitted with acute on chronic heart failure and ONEIL # acute on chronic heart failure - total body fluid overloaded but intravascular volume status unclear # bilateral right greater than left pleural effusions. Probably related to cardiorenal failure # suspect ascites, though labs do not indicate decompensated cirrhosis. Probably related to cardiorenal failure no echo since September 2024, ordered stat repeat echo she is at risk for cardiorenal failure -added on BNP -hold off on diuretics or fluids pending Echo -consult cardiology - discussed with Storm Heck -continue imdur, carvedilol -she may benefit from thoracentesis or paracentesis for symptom relief so I held her apixaban -no evidence of ACS based on HS-troponin, EKG. Low risk lexiscan fall 2023. I think this is probably related to fluid overload: pleural effusions and possible ascites, though it could be anginal ONEIL on CKD stage IV - suspect non-oluguric. thought to have chronic kidney disease related to diabetes and hypertension, had 3g proteinuria on previous nephrology evaluation - abnormal urinalysis noted. Possible urinary tract infection ceftriaxone given in ED urine culture ordered - check bladder scan for retention, monitor UOP closely - ordered spot urine prot:creat urine sodium and Cr (sodium likely to be elevated because of furosemide) - hold ARB, avoid nephrotoxins - monitor UOP and BMP, Mag, phos - consulted nephrology - discussed with Dr. Bartholomew # R>>L pleural effusions / poss ascites -see above # Afib - hold apixaban in case of procedures, continue carvedilol # DM type 2 - recent A1c at goal - continue long acting and premeal/correctional short acting insulin - ordered very conservative dosing because of poor renal function and lots of her body weight is water # Anemia - longstanding, past notes mention hypoproliferative and referred to hematology - unclear whether ever seen. Would expect anemia related to CKD at this point - check iron studies, B12 # recent cataract surgery - confirmed and ordered her eye drops updated her at bedside PT/OT eval DVT ppx - apixaban held, start chemoppx tomorrow night History of Present Illness Chief Complaint: shortness of breath chest/Abdominal pressure Primary Care Provider: Cait Gamboa MD 60 is a 69-year-old woman with heart failure with midrange ejection fraction, atrial fibrillation, advanced CKD with proteinuria, diabetes type 2. she came into the ED today with increasing shortness of breath and chest/abdominal pressure. both of these symptoms have been going on approximately 3 to 4 days and slowly worsening. She does have orthopnea and has been sleeping in a recliner the last several days, she has also had trouble breathing very early in the morning which is causing her to wake up, her has been giving her 2 tabs of furosemide which seems to help at least for the morning but she is again worse by evening. She has had increasing lower extremity edema up to the knees and increasing abdominal girth for weeks. She does not feel like the Lasix helps her urinate more than usual. The chest/abdominal pressure comes and goes with the dyspnea which is frequent, every few minutes seems to last at least a few minutes and then improves. There is some pelvic/rectal pressure that goes along with the sensation. This is nonexertional and seems to actually be worse at rest. Her son points out that if she does get up and walk however she is too short of breath and fatigued after only about 12 feet. The pressure is nonradiating it is not pain. She has had intermittent nausea with some vomiting however does not correlate with the pressure. She has not noticed any dysuria however seems to be urinating small amounts as she does have left flank pain for the last several days without fevers or chills. No history of nephrolithiasis. She does have a history of urinary tract infections. No recent changes in her medications, I forgot to ask her whether she has taken any NSAIDs recently I obtained additional history from her at bedside because she is a vague historian and he notes that she is a poor short-term memory I reviewed her previous outpatient progress notes and imaging and to summarize she was admitted fall and October 2024 for heart failure exacerbation. TTE September 2024 with EF 40-49% moderate MR some LVH and wall motion abnormalities. She underwent a Fernanda scan which was charged low risk for inducible ischemia. Cardiology and nephrology consulted at that time. She was diuresed. she was referred to CHF clinic however I do not see any progress notes after a few missed visits and there is no echo since September 2024. Likewise no nephrology visits as an outpatient she said to follow-up with Dr. Hensley, the past she was found to have 3 g proteinuria with a negative UPEP thought to be hypertensive and diabetic kidney disease and she was started on losartan. I also see a previous renal artery ultrasound in August 2024 which was negative for renal artery stenosis. Since then creatinine seems to have ranged between 22.2 and was stable until early January when it arpita to 3. Diabetes was poorly controlled in the past with A1c up to 16% however based on primary care notes control significantly improved recently. Allergies Allergy/AdvReac Type Severity Reaction Status Date / Time empagliflozin Allergy Severe Unknown Verified 02/21/25 08:01 [From [employer]] Home Medications Medication Instructions Recorded Confirmed Type lancets 33 gauge (OneTouch Delica #100 ea 05/28/23 02/08/25 Rx Plus Lancet) aspirin 81 mg tablet,delayed 81 mg PO QAM #30 tabs 03/18/24 03/01/25 Rx release OneTouch Verio test strips (blood #100 ea 03/22/24 02/08/25 Rx sugar diagnostic) blood sugar diagnostic (Accu-Chek #100 ea 03/24/24 02/08/25 Rx Elvira Plus test strips) blood-glucose,sap portal developer,cont #1 ea 03/30/24 02/08/25 Rx (Dexcom G7 Specialist Wound Care) pen needle, diabetic 32 gauge x #100 ea 09/12/24 02/08/25 Rx 5/32" (BD Ultra-Fine Snow Pen Needle) carvedilol 6.25 mg tablet 6.25 mg PO BID 10/23/24 03/01/25 History apixaban 5 mg tablet (Eliquis) 5 mg PO BID 30 days #180 tabs 11/08/24 03/01/25 Rx losartan 25 mg tablet 25 mg PO QAM #90 tabs 12/06/24 03/01/25 Rx furosemide 40 mg tablet (Lasix) 40 mg PO QAM #90 tabs 01/03/25 03/01/25 Rx insulin degludec 100 unit/mL (3 8 unit subcut QAM 01/26/25 03/01/25 History mL) subcutaneous pen (Tresiba FlexTouch U-100 insulin) isosorbide mononitrate 60 mg 60 mg PO QAM 01/26/25 03/01/25 History tablet,extended release 24 hr sertraline 50 mg tablet 50 mg PO QAM 01/26/25 03/01/25 History blood-glucose sensor (Dexcom G7 #4 ea 02/01/25 02/08/25 Rx Sensor device) atorvastatin 40 mg tablet 40 mg PO QPM #90 tabs 02/03/25 03/01/25 Rx ketorolac 0.5 % eye drops See Rx Instructions .Route .COMPLEX 03/01/25 03/01/25 History moxifloxacin 0.5 % eye drops See Rx Instructions .Route .COMPLEX 03/01/25 03/01/25 History prednisolone acetate 1 % eye See Rx Instructions .Route .COMPLEX 03/01/25 03/01/25 History drops,suspension Past Med/Surg History Problem List Atrial fibrillation Diabetes type 2, controlled Acute kidney injury superimposed on stage 4 chronic kidney disease Acute on chronic heart failure with mildly reduced ejection fraction (HFmrEF, 41-49%) Routine health maintenance Cataract Encounter for examination following treatment at hospital COVID-19 (Acute) Acute hypoxic respiratory failure COVID-19 Pulmonary edema (Acute) Hypoxia (Acute) Bilateral edema of lower extremity (Acute) Dyspnea (Acute) Nephrotic range proteinuria Dyspnea on minimal exertion (Acute) CHF (congestive heart failure) (Acute) Chronic kidney disease (Acute) History of angina Burn of foot, right, second degree Pleural effusion Pericardial effusion Exertional angina Acute heart failure with mildly reduced ejection fraction (HFmrEF, 41-49%) Type 2 diabetes mellitus Blister (Acute) Hypoxia (Acute) Elevated troponin (Acute) ONEIL (acute kidney injury) (Acute) CHF (congestive heart failure) (Acute) Hypoxia Wound of right foot (Acute) Elevated troponin Asymptomatic hypertensive urgency Hypertensive emergency (Acute) Homonymous hemianopsia Encephalopathy (Acute) Mitral regurgitation Paroxysmal atrial fibrillation ONEIL (acute kidney injury) Neuropathic pain of both feet Anemia Diabetic neuropathy Edema of both legs (Acute) Elevated vitamin B12 level Type 2 diabetes mellitus with hyperosmolar hyperglycemic state (HHS) (Acute) Chest pain RBBB Anxiety and depression Hypertension (Acute) Lichen sclerosus et atrophicus (Acute) Noncompliance with treatment plan (Acute) Type II diabetes mellitus with neurological manifestations, uncontrolled (Chronic) Diabetes mellitus type 2, uncontrolled, with complications Medical History Acute hypoxic respiratory failure hx, 10/2024, hospitalized at [facility] w/covid History of COVID-19 10/2024 Anxiety and depression Hypertension Paroxysmal atrial fibrillation currently on eliquis; no cardiology Hx of mitral valve insufficiency History of CHF (congestive heart failure) Bilateral edema of lower extremity Acute on chronic heart failure with preserved ejection fraction (HFpEF, >= 50%) hx; has f/u cory De León md Bilateral ankle joint pain Type 2 diabetes mellitus, uncontrolled Weakness ongoing Prolonged QT interval hx, 03/2024, hospitalized at [facility] 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 Pulmonary edema hx, 10/2024, hospitalized [facility] and acute respiratory failure Hyperosmolar hyperglycemic state (HHS) hx, hospitalized [facility] 03/2024 Acute metabolic encephalopathy hx, hospitalized [facility] 03/2024 Severe sepsis hx, 03/2024, hospitalized at [facility] HHS (hypothenar hammer syndrome) unsure? Elevated troponin hx, hospitalized [facility] 03/2024 Unresponsive state hx, 03/2024, hospitalized at [facility] DKA (diabetic ketoacidosis) hx, hospitalized [facility] 03/2024; per records had been off of diabetic oral med and insulin for months Hyperlipidemia Surgical History Hx of right cataract extraction (02/07/25) Hx of colonoscopy History of lumbar surgery L4-L5, 40+ years ago H/O total hysterectomy Family History Father Diabetes Prostate cancer Grandmother Diabetes Aunt Colorectal cancer Brother Stroke Denies family history of Ovarian cancer Myocardial infarction Breast cancer Social History Smoking Status: Never smoker Tobacco Type: E-cigarettes / Vaping Second Hand Exposure: Yes (hx); Do You Dip or Chew Tobacco: No; Hx Alcohol Use: No Hx Substance Use: No Preferred Language: [place] Communication Ability: Effective Communication Ability Comment: Patient reports she has trouble seeing Visual Impairment: No Limitations Hearing Ability: Normal Field Appraiser Required: No Beliefs That Will Affect Care: None marital status: Current Living Situation: Spouse Current Living Situation Comment: Lives with spouse current occupational status: retired 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 How many Children do You have: 3 Feels Safe at Home: Yes Childhood Exposure to Second-Hand Smoke: No Diet: regular Diet Comment: added more salads to diet. caffeine: Yes (soda 3 x week) during the past year weight has: remained stable Dental Care, Regularly: No Physical Activity Frequency: Does not Exercise Seatbelt Use: always Sunscreen Use: No Do you think of yourself as: straight/heterosexual Gender Identity: Female Assistive Devices: Cane Review of Systems Review of Systems: All systems reviewed & are unremarkable except as noted in HPI & below Physical Exam Physical Exam: PHYSICAL EXAMINATION Last 24h vital signs reviewed, see documentation in flowsheet General: comfortable appearing, no distress, pale HEENT: Normocephalic, atraumatic, pupils round and equal, sclerae anicteric, no conjunctival injection, moist mucus membranes Lungs: Normal respiratory effort. Dull to percussion at least longterm up on the right and one quarter way up on the left, mild amount of bibasilar crackles just above. No wheezing no apical crackles no anterior crackles or wheezing. Heart: Regular rate and rhythm, no murmurs. JVD is a bit hard to see however I think it is elevated to around 13 cm Abdomen: Soft, nontender, mildly distended, probable small to moderate ascites. Bowel sounds present. Extremities: Warm, dry, well-perfused. 2+ bilateral lower extremity pitting edema up to the knees. Neuro: Alert and oriented x hospital and situation, looks to her for some detailed answers to questions, face symmetric, moves 4 extremities well Psych: Normal affect and behavior Results & Data Results & Data Vital Signs (Past 12 Hours) Vital Signs Temp Pulse Resp BP Pulse Ox O2 Del Method 03/01/25 09:03 84 18 95 03/01/25 09:00 172/115 H 03/01/25 08:57 85 19 94 03/01/25 08:30 83 15 93 03/01/25 08:24 84 12 93 03/01/25 08:23 93 Room Air 03/01/25 08:22 93 Room Air 03/01/25 08:13 195/113 H 03/01/25 07:59 36.7 C 86 22 192/83 H 95 Room Air Laboratory Results I reviewed her CBC BMP LFTs these are remarkable for some stable anemia with hemoglobin of 9, no leukocytosis, significant elevation of BUN/creatinine above baseline at 68/3.6, potassium normal at 4.2. AST and ALT are normal bilirubin minimally elevated at 1.1. Urinalysis is grossly abnormal she has 3+ protein 3+ blood 3+ LE greater than 50 whites greater than 20 RBCs hyaline casts and 4+ bacteria I personally reviewed the chest x-ray film and shows some enlarged heart some pulmonary edema pattern and bilateral pleural effusions moderate on the right and small on the left I personally reviewed her EKG tracing which is basically normal Code Status & VTE Plan Code Status she prefers to be DNR, her corroborates this VTE Prophylaxis Plan VTE Prophylaxis will be ordered: Yes PG Care Time/CCT Total # of Minutes Spent Total Time Spent with Patient: Total time spent is greater than 50% in coordination of care (as documented) at patient's floor/unit and/or counseling patient: Coding Level of Care Code 14997 INT INP/OBS CARE 3/75MIN Diagnoses Acute on chronic heart failure with mildly reduced ejection fraction (HFmrEF, 41 -49%) I50.23 Acute kidney injury superimposed on stage 4 chronic kidney disease N17.9; N18.4 Diabetes type 2, controlled E11.9 Atrial fibrillation I48.91
--- NOTE | 2025-03-01 12:33 | Cardiology Consultation ---
Date of Consultation March 01, 2025 Assessment & Plan (1) Acute on chronic heart failure with mildly reduced ejection fraction (HFmrEF, 41-49%): (2) Pulmonary edema: (3) Pleural effusion: (4) Paroxysmal atrial fibrillation: (5) Mitral regurgitation: (6) Chronic kidney disease: Plan Mrs. Cavazos is a 69-year-old female with a history of Hypertension, Dyslipidemia, Paroxysmal Atrial Fibrillation, HFmrEF, Cardiomyopathy (LVEF 45% to 50%), Mitral Regurgitation, Stroke, Type 2 Diabetes Mellitus, and CKD who presented today with an Acute Exacerbation of HFmrEF, Hypervolemia, Whole Body Fluid Overload, and worsening renal function. She is complaining of significant lower extremity edema over the past several weeks followed by the development of dyspnea on exertion, dyspnea at rest, orthopnea, and PND. She also complains of fatigue because she is not sleeping or resting well. She has not been weighing herself routinely. Patient also describes chest and abdominal fullness over the past 3 to 4 days. She states that she eats a low sodium diet. She is compliant with her medications for the most part, but she does admit to missing doses occasionally. CXR consistent with pulmonary edema, bilateral pleural effusions, and cardiomegaly. Echocardiogram shows reduced LV systolic function, LVEF is 40% to 45% with mid to distal anterior and anterolateral hypokinesis, [id number] mitral regurgitation, moderate left atrial enlargement, moderate tricuspid regurgitation, trace pericardial effusion, and RVSP is calculated at 68 mmHg. BNP is elevated at > 3000 pg/mL. Recommend the followin. Increase Coreg to 12.5 mg b.i.d.. 2. Hold Losartan due to renal compromise. 3. Continue Imdur ER 60 mg daily. 4. Add Hydralazine 50 mg every 8 hours. 5. Use diuretics as needed while closely monitoring renal function and electrolytes. 6. Strict low sodium diet. 7. monitor daily body weights. 8. Monitor I&O's. 9. Continue Atorvastatin 40 mg daily. 10. Continue Aspirin 81 mg daily. We will continue to follow this patient throughout her hospitalization and foll owing discharge. She would be a good candidate for our Heart Failure Clinic. History of Present Illness History of Present Illness Mrs. Cavazos is a 69-year-old female with a history of Hypertension, Dyslipidemia, Paroxysmal Atrial Fibrillation, HFmrEF, Cardiomyopathy (LVEF 45% to 50%), Mitral Regurgitation, Stroke, Type 2 Diabetes Mellitus, and CKD who presented today complaining of significant lower extremity edema over the past several weeks followed by the development of dyspnea on exertion, dyspnea at rest, orthopnea, and PND. She also complains of fatigue because she is not sleeping or resting well. She has not been weighing herself routinely. Patient also describes chest and abdominal fullness over the past 3 to 4 days. She states that she eats a low sodium diet. She is compliant with her medications for the most part, but she does admit to missing doses occasionally. Recent cardiac studies 1. 09/22/24 Echo: Normal LV size with mildly reduced function. EF 45-50%. Hypokinesis of the mid to distal anterolateral and anterior argueta. Moderate concentric LVH. Mild left atrial dilation. Moderate MR. Mild pulmonary hypertension. RVSP 48 mmHg. Small pericardial effusion. Pleural effusion. HISTORICAL BACKGROUND: In March 2024, she was seen in consultation for paroxysmal atrial fibrillation. She was hospitalized with hyperosmolar hyperglycemic state and sepsis. She had not been taking her medications for approximately 2 months and was found unresponsive by her . There was concern for stroke on MRI. She was placed on anticoagulation therapy. Her atrial fibrillation was reportedly unstable and she was cardioverted by the critical care staff and placed on amiodarone which was later discontinued due to bradycardia and significantly prolonged QT after the initiation of amiodarone. She has not been taking anticoagulation therapy in the outpatient setting. She has chronically been anemic. She was admitted from, 09/22/24 through 09/28/24 for CHF, anemia, and foot wounds. She presented with worsening shortness of breath. For the preceding 5 days or so, she had increasing shortness of breath, specifically on exertion. She is short of breath even walking from room to room. She also had increased edema. She has chronic lower extremity edema but it had significantly worsened over the preceding 5 to 6 days. She was not sure if she had orthopnea as she had been staying at her sister's house for the prior week and had been sleeping in a recliner. She also described substernal chest tightness/heaviness. This occurred only after exerting and typically resolved within 5 minutes of rest. There was no radiation of the pain and in general this was a new symptom for her. She was treated with IV diuretics. Perfusion study without evidence of ischemia. She was discharged on Eliquis, Carvedilol, Isosorbide, and ferrous sulfate. She was readmitted from 10/03/24 through 10/07/24 for CHF after she presented with dyspnea, edema, and weight gain. Admitted to dietary indiscretion with the holiday. She was treated with Lasix 40 mg IV BID. Also noted to have nephrotic range proteinuria. Nephrology consulted. She was discharged on Lasix 40 mg daily. Carvedilol reduced to 3.125 mg BID. Isosorbide increased to 60 mg daily. Hydralazine increased to 75 mg TID. Allergies Allergy/AdvReac Type Severity Reaction Status Date / Time empagliflozin Allergy Severe Unknown Verified 02/21/25 08:01 [From [employer]] Home Medications Medication Instructions Recorded Confirmed Type lancets 33 gauge (OneTouch Delica #100 ea 05/28/23 02/08/25 Rx Plus Lancet) aspirin 81 mg tablet,delayed 81 mg PO QAM #30 tabs 03/18/24 03/01/25 Rx release OneTouch Verio test strips (blood #100 ea 03/22/24 02/08/25 Rx sugar diagnostic) blood sugar diagnostic (Accu-Chek #100 ea 03/24/24 02/08/25 Rx Elvira Plus test strips) blood-glucose,ppap coordinator,cont #1 ea 03/30/24 02/08/25 Rx (Dexcom G7 Computer Systems Engineer) pen needle, diabetic 32 gauge x #100 ea 09/12/24 02/08/25 Rx 5/32" (BD Ultra-Fine Snow Pen Needle) carvedilol 6.25 mg tablet 6.25 mg PO BID 10/23/24 03/01/25 History apixaban 5 mg tablet (Eliquis) 5 mg PO BID 30 days #180 tabs 11/08/24 03/01/25 Rx losartan 25 mg tablet 25 mg PO QAM #90 tabs 12/06/24 03/01/25 Rx furosemide 40 mg tablet (Lasix) 40 mg PO QAM #90 tabs 01/03/25 03/01/25 Rx insulin degludec 100 unit/mL (3 8 unit subcut QAM 01/26/25 03/01/25 History mL) subcutaneous pen (Tresiba FlexTouch U-100 insulin) isosorbide mononitrate 60 mg 60 mg PO QAM 01/26/25 03/01/25 History tablet,extended release 24 hr sertraline 50 mg tablet 50 mg PO QAM 01/26/25 03/01/25 History blood-glucose sensor (Dexcom G7 #4 ea 02/01/25 02/08/25 Rx Sensor device) atorvastatin 40 mg tablet 40 mg PO QPM #90 tabs 02/03/25 03/01/25 Rx ketorolac 0.5 % eye drops See Rx Instructions .Route .COMPLEX 03/01/25 03/01/25 History moxifloxacin 0.5 % eye drops See Rx Instructions .Route .COMPLEX 03/01/25 03/01/25 History prednisolone acetate 1 % eye See Rx Instructions .Route .COMPLEX 03/01/25 03/01/25 History drops,suspension Patient History Medical History Acute hypoxic respiratory failure hx, 10/2024, hospitalized at [facility] w/covid History of COVID-19 10/2024 Anxiety and depression Hypertension Paroxysmal atrial fibrillation currently on eliquis; no cardiology Hx of mitral valve insufficiency History of CHF (congestive heart failure) Bilateral edema of lower extremity Acute on chronic heart failure with preserved ejection fraction (HFpEF, >= 50%) hx; has f/u [place] Bilateral ankle joint pain Type 2 diabetes mellitus, uncontrolled Weakness ongoing Prolonged QT interval hx, 03/2024, hospitalized at [facility] 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 Pulmonary edema hx, 10/2024, hospitalized at [facility] w/covid and acute respiratory failure Hyperosmolar hyperglycemic state (HHS) hx, hospitalized [facility] 03/2024 Acute metabolic encephalopathy hx, hospitalized [facility] 03/2024 Severe sepsis hx, 03/2024, hospitalized at [facility] HHS (hypothenar hammer syndrome) unsure? Elevated troponin hx, hospitalized [facility] 03/2024 Unresponsive state hx, 03/2024, hospitalized at [facility] DKA (diabetic ketoacidosis) hx, hospitalized [facility] 03/2024; per records had been off of diabetic oral med and insulin for months Hyperlipidemia Surgical History Hx of right cataract extraction (02/07/25) Hx of colonoscopy History of lumbar surgery L4-L5, 40+ years ago H/O total hysterectomy Family History Father Diabetes Prostate cancer Grandmother Diabetes Aunt Colorectal cancer Brother Stroke Denies family history of Ovarian cancer Myocardial infarction Breast cancer Social History Smoking Status: Never smoker Tobacco Type: E-cigarettes / Vaping Second Hand Exposure: Yes (hx); Do You Dip or Chew Tobacco: No; Hx Alcohol Use: No Hx Substance Use: No Preferred Language: Lithuanian Communication Ability: Effective Communication Ability Comment: Patient reports she has trouble seeing Visual Impairment: No Limitations Hearing Ability: Normal Security Guard Dispatcher Required: No Beliefs That Will Affect Care: None marital status: Current Living Situation: Spouse Current Living Situation Comment: Lives with spouse current occupational status: retired 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 How many Children do You have: 3 Other Information That Helps Us Care for You: No Feels Safe at Home: Yes Safety Concerns: Feels Safe At This Time Childhood Exposure to Second-Hand Smoke: No Diet: regular Diet Comment: added more salads to diet. caffeine: Yes (soda 3 x week) during the past year weight has: remained stable Dental Care, Regularly: No Physical Activity Frequency: Does not Exercise Seatbelt Use: always Sunscreen Use: No Do you think of yourself as: straight/heterosexual Gender Identity: Female Assistive Devices: Cane Review of Systems Review of Systems: -- As per HPI. Physical Exam Physical Exam: Blood pressure 192/102, pulse 85 and regular, SpO2 96% on room air. GENERAL: Patient appears mildly distressed. HEENT: Head is atraumatic, normocephalic. EOM's intact. Facies symmetric. No perioral cyanosis. NECK: JVD is noted. JVP is elevated. Carotid upstrokes are + 2 bilaterally. CHEST/LUNGS: Absent breath sounds in the right base, left basilar crackles. CVS: S1 and S2 are regular without murmurs, gallops, or rubs. PMI is nondisplaced. No lifts, heaves, or thrills. No abdominal aortic or renal bruits. ABDOMINAL EXAM: Bowel sounds are present. Abdomen appears to be distended. EXTREMITIES: No clubbing or cyanosis. +3 pitting edema to the knee level +2 distal thigh edema. Extremities are well perfused. NEUROLOGIC EXAM: Patient is awake, alert, and oriented. Pleasant and cooperative. Answers questions appropriately. Speech is clear. NATIONAL ACCOUNT DIRECTOR: -- Sinus rhythm at 85 bpm. EKG : -- Normal sinus rhythm at 86 bpm. -- Normal EKG. BNP elevated at 3580 pg/mL. Results & Data Vital Signs (Past 12 Hours) Vital Signs Temp Pulse Resp BP Pulse Ox O2 Del Method 03/01/25 10:33 87 14 93 03/01/25 10:31 181/112 H 03/01/25 10:24 84 23 94 03/01/25 10:03 86 18 93 03/01/25 10:00 180/108 H 03/01/25 09:57 89 18 95 03/01/25 09:39 83 19 95 03/01/25 09:30 187/117 H 03/01/25 09:21 83 14 95 03/01/25 09:03 84 18 95 03/01/25 09:00 172/115 H 03/01/25 08:57 85 19 94 03/01/25 08:30 83 15 93 03/01/25 08:24 84 12 93 03/01/25 08:23 93 Room Air 03/01/25 08:22 93 Room Air 03/01/25 08:13 195/113 H 03/01/25 07:59 36.7 C 86 22 192/83 H 95 Room Air Laboratory Results Laboratory Results - last 24 hr 03/01/25 03/01/25 03/01/25 08:13 08:50 08:53 WBC 7.07 RBC 3.16 L Hgb 9.3 L Hct 27.6 L MCV 87.3 MCH 29.4 MCHC 33.7 RDW Std Deviation 45.3 RDW Coeff of Abel 14.3 Plt Count 184 MPV 10.3 Immature Gran % (Auto) 0.3 Neut % (Auto) 76.8 Lymph % (Auto) 11.7 [place] % (Auto) 7.8 Eos % (Auto) 2.8 Baso % (Auto) 0.6 Neut # (Auto) 5.43 Lymph # (Auto) 0.83 L [place] # (Auto) 0.55 Eos # (Auto) 0.20 Baso # (Auto) 0.04 Immature Gran # (Auto) 0.02 Sodium 138 Potassium 4.2 Chloride 104 Carbon Dioxide 25 Anion Gap 9 BUN 68 H Creatinine 3.60 H Est Cr Clr Drug Dosing 14.2 eGFR 13.28 BUN/Creatinine Ratio 18.9 Glucose 245 H Calcium 9.7 Total Bilirubin 1.1 H AST 20 ALT 23 Alkaline Phosphatase 79 B-Natriuretic Peptide Pending Total Protein 6.9 Albumin 4.1 Globulin 2.8 Albumin/Globulin Ratio 1.5 Urine Color Yellow Urine Appearance Turbid A Urine pH 5.5 Ur Specific [place] 1.013 Urine Protein 3+ H Urine Glucose (UA) Trace H Urine Ketones Negative Urine Blood 3+ H Urine Nitrite Negative Urine Bilirubin Negative Urine Urobilinogen Negative Ur Leukocyte Esterase 3+ H Urine WBC (Auto) >50 H Urine RBC (Auto) >20 H U Hyaline Cast (Auto) 6-10 H U Epithel Cells (Auto) 0-2 Urine Bacteria (Auto) 4+ H Hyaline Casts Present A Ur Random Creatinine Pending U Random Total Protein Pending Ur Random Sodium Pending Protein/Creatinin Ratio Pending Diagnostic Findings CXR 03/01/25: Cardiac silhouette is enlarged. Pulmonary vascular congestion with interstitial coarsening. Layering pleural effusions with dependent bibasilar consolidation. Findings are stable from prior. No pneumothorax. Bones appear grossly intact. IMPRESSION: 1. Cardiomegaly with interstitial pulmonary edema. 2. Layering pleural effusions with bibasilar consolidation favoring atelectasis. Pneumonia considered less likely. Medications Administered Medications lancets 33 gauge (Eventus Software PvtTouch Delica Plus Lancet) #100 ea 05/28/23 [Rx Confirmed 02/08/25] aspirin 81 mg tablet,delayed release 81 mg PO QAM #30 tabs 03/18/24 [Rx Confirmed 03/01/25] OneTouch Verio test strips (blood sugar diagnostic) #100 ea 03/22/24 [Rx Confirmed 02/08/25] blood sugar diagnostic (Accu-Chek Elvira Plus test strips) #100 ea 03/24/24 [Rx Confirmed 02/08/25] blood-glucose,ppap coordinator,cont (Dexcom G7 Computer Systems Engineer) #1 ea 03/30/24 [Rx Confirmed 02/08/25] pen needle, diabetic 32 gauge x 5/32" (BD Ultra-Fine Snow Pen Needle) #100 ea 09/12/24 [Rx Confirmed 02/08/25] carvedilol 6.25 mg tablet 6.25 mg PO BID 10/23/24 [History Confirmed 03/01/25] apixaban 5 mg tablet (Eliquis) 5 mg PO BID 30 days #180 tabs 11/08/24 [Rx Confirmed 03/01/25] losartan 25 mg tablet 25 mg PO QAM #90 tabs 12/06/24 [Rx Confirmed 03/01/25] furosemide 40 mg tablet (Lasix) 40 mg PO QAM #90 tabs 01/03/25 [Rx Confirmed 03/01/25] insulin degludec 100 unit/mL (3 mL) subcutaneous pen (Tresiba FlexTouch U-100 insulin) 8 unit subcut QAM 01/26/25 [History Confirmed 03/01/25] isosorbide mononitrate 60 mg tablet,extended release 24 hr 60 mg PO QAM 01/26/25 [History Confirmed 03/01/25] sertraline 50 mg tablet 50 mg PO QAM 01/26/25 [History Confirmed 03/01/25] blood-glucose sensor (Dexcom G7 Sensor device) #4 ea 02/01/25 [Rx Confirmed 02/08/25] atorvastatin 40 mg tablet 40 mg PO QPM #90 tabs 02/03/25 [Rx Confirmed 03/01/25] ketorolac 0.5 % eye drops See Rx Instructions .Route .COMPLEX 03/01/25 [History Confirmed 03/01/25] moxifloxacin 0.5 % eye drops See Rx Instructions .Route .COMPLEX 03/01/25 [History Confirmed 03/01/25] prednisolone acetate 1 % eye drops,suspension See Rx Instructions .Route .COMPLEX 03/01/25 [History Confirmed 03/01/25] Home Medications Ceftriaxone Sodium (Rocephin) 1,000 mg in 50 mls @ 100 mls/hr IV Q24H SUMAYA Stop: 03/09/25 08:59 PG Care Time/CCT Total # of Minutes Spent Total Time Spent with Patient: Total time spent is greater than 50% in coordination of care (as documented) at patient's floor/unit and/or counseling patient:62 Coding [place] [address] INT INP/OBS CARE MIN Patient Type Established History Comprehensive Exam Comprehensive Medical Decision Making High Complexity Diagnoses Acute on chronic heart failure with mildly reduced ejection fraction (HFmrEF, 41-49%) I50.23 Acute pulmonary edema J81.0 Chronicity: acute Pleural effusion J90 Paroxysmal atrial fibrillation I48.0 Nonrheumatic mitral valve regurgitation I34.0 Cardiac valve disease etiology: nonrheumatic Chronic kidney disease N18.9 Chronic kidney disease stage: unspecified stage Time Spent (min) 80 (2) Pulmonary edema Chronicity: acute Qualified Code(s): J81.0 - Acute pulmonary edema (5) Mitral regurgitation Cardiac valve disease etiology: nonrheumatic Qualified Code(s): I34.0 - Nonrheumatic mitral (valve) insufficiency (6) Chronic kidney disease Chronic kidney disease stage: unspecified stage Qualified Code(s): N18.9 - Chronic kidney disease, unspecified
--- NOTE | 2025-03-01 12:36 | Nephrology Consultation ---
Date of Consultation March 01, 2025 Assessment & Plan (1) Acute kidney injury superimposed on stage 4 chronic kidney disease: Non-oliguric. Electrolytes acceptable. Increased TBW. Baseline creatinine ~2.1-2.4 mg/dL. Clinical presentation concerning for progression of CKD or possible ATN in setting of UTI. Known history of CRS. Goals of care were discussed. Carol stated that she would not want dialysis under any circumstances. Thankfully, there is no emergent indication at this time. She acknowledges that her kidney dysfunction is advanced. Medications are appropriate for kidney dysfunction. Hold losartan pending additional monitoring. Urine studies suggestive of cystitis/UTI and prerenal ONEIL (likely CRS). Abdominal US did not demonstrate renal obstruction. Document strict I/O's. Repeat metabolic profile tomorrow AM. (2) Chronic kidney disease: CKD IV-V A3. CKD attributed to DKD and hypertension by history. Carol was evaluated by Dr. Hensley in the clinic in the past but has not maintained regular outpatient nephrology follow up. She told me this AM that she would not pursue dialysis under any circumstances. (3) Nephrotic range proteinuria: (4) Acute on chronic heart failure with mildly reduced ejection fraction (HFmrEF, 41-49%): Plan of care discussed with cardiology. Updated TTE pending. I would suggest holding RAASi in the setting of ONEIL. Diuretics PRN to encourage slightly negative fluid balance. (5) Anemia: Hgb 9.3. Tsat 18; ferritin 261. Chronic, stable. Defer MELVI therapy pending monitoring. Venofer 200 mg x 1 now. (6) UTI (urinary tract infection): UA/microscopy consistent with cystitis. Thankfully, Carol denies significant symptoms. Started on Ceftriaxone. Cultures pending. (7) Hypertension: I would suggest that losartan be held in the setting of ONEIL. Carol states that she took carvedilol, Imdur, and losartan at home this AM. I suspect that she would benefit from some additional carvedilol or PRN labetalol. She told me that she took 2 x 40 mg of furosemide at home this AM. Hold additional diuretics at this time pending monitoring. History of Present Illness Reason for Consultation: ONEIL on CKD-4 Requesting Physician: Tammy Josue MD Attending Physician: Tammy Josue MD History of Present Illness Carol Cavazos is a 69 year-old female with diabetes mellitus, hypertension, paroxysmal atrial fibrillation, HFmrEF, anemia, recurrent UTI, and chronic kidney disease + history of acute kidney injury. Carol was evaluated in the [facility] nephrology clinic by Dr. Hensley in March 2024 but at that time expressed a strong desire to "get off all medications" and "live a natural life". She told Dr. Hensley that she did not want further Nephrology evaluation/testing. Creatinine in March 2024 was ~0.96 mg/dL. In , creatinine was 1.5- 2.0 mg/dL. Proteinuria was quantified at 3 grams. Carol was admitted to [facility] in October 2024 with COVID infection, acute on chronic CHF, and ONEIL. I met Carol during this admission. ONEIL was attributed to cardiorenal syndrome and hemodynamic changes. Creatinine peaked at 2.56 mg/dL and plateaued around 2.3 mg/dL. Random urine studies demonstrating a PCR of 4.7 g/g. MACR in September 2023 was 2428 mcg/mg. MACR earlier this month 4849 mg/g. UA was otherwise bland and urine microscopy did not demonstrate any WBCs or RBCs. CT scan from March 2024 demonstrated edematous kidneys with normal corticomedullary differentiation and no evidence of obstruction. Renal artery duplex in August 2024 demonstrated no renal artery stenosis. Serum immunofixation did not demonstrate a monoclonal protein. Carol maintained follow up with her PCP but has not seen a machine rug cleaner since she was discharged from [facility] in October. She has not ret urned for outpatient follow up since her visit with Dr. Hensley in March 2024. Creatinine was 3.0 mg/dL earlier this month. R eye cataract (02/07) and L eye cataract (02/21) were performed by Dr. Hare without complications. Carol presented to the ER at [facility] today with progressive dyspnea. I discussed the plan of care with Dr. Josue and Storm Heck PA-C. Symptoms have been progressive over several days. Carol reports increased generalized edema as well as progressive orthopnea x ~1 week. She describes PND. She denies chest pains or palpitations. She reports some heaviness and pressure in her chest. Deep breathing is difficult due to tightness in her chest. She denies fevers or chills. She denies any urinary symptoms though she has been voiding smaller amounts with increased frequency. Urine studies demonstrate 3+ protein, 3+ blood, 3+ LE. Microscopy notable for >50 WBC, >20 RBC, hyaline casts, 4+ bacteria. Hemoglobin 9.3 g/dL. Tsat earlier this month 18 with ferritin 261. Serum enid ctrolytes are normal. Serum albumin 4.1 g/dL. Allergies Allergy/AdvReac Type Severity Reaction Status Date / Time empagliflozin Allergy Severe Unknown Verified 02/21/25 08:01 [From [employer]] Home Medications Medication Instructions Recorded Confirmed Type lancets 33 gauge (OneTouch Delica #100 ea 05/28/23 02/08/25 Rx Plus Lancet) aspirin 81 mg tablet,delayed 81 mg PO QAM #30 tabs 03/18/24 03/01/25 Rx release OneTouch Verio test strips (blood #100 ea 03/22/24 02/08/25 Rx sugar diagnostic) blood sugar diagnostic (Accu-Chek #100 ea 03/24/24 02/08/25 Rx Elvira Plus test strips) blood-glucose,aligner barrel and receiver,cont #1 ea 03/30/24 02/08/25 Rx (Dexcom G7 Wire Wrapper Machine Operator) pen needle, diabetic 32 gauge x #100 ea 09/12/24 02/08/25 Rx 5/32" (BD Ultra-Fine Snow Pen Needle) carvedilol 6.25 mg tablet 6.25 mg PO BID 10/23/24 03/01/25 History apixaban 5 mg tablet (Eliquis) 5 mg PO BID 30 days #180 tabs 11/08/24 03/01/25 Rx losartan 25 mg tablet 25 mg PO QAM #90 tabs 12/06/24 03/01/25 Rx furosemide 40 mg tablet (Lasix) 40 mg PO QAM #90 tabs 01/03/25 03/01/25 Rx insulin degludec 100 unit/mL (3 8 unit subcut QAM 01/26/25 03/01/25 History mL) subcutaneous pen (Tresiba FlexTouch U-100 insulin) isosorbide mononitrate 60 mg 60 mg PO QAM 01/26/25 03/01/25 History tablet,extended release 24 hr sertraline 50 mg tablet 50 mg PO QAM 01/26/25 03/01/25 History blood-glucose sensor (Dexcom G7 #4 ea 02/01/25 02/08/25 Rx Sensor device) atorvastatin 40 mg tablet 40 mg PO QPM #90 tabs 02/03/25 03/01/25 Rx ketorolac 0.5 % eye drops See Rx Instructions .Route .COMPLEX 03/01/25 03/01/25 History moxifloxacin 0.5 % eye drops See Rx Instructions .Route .COMPLEX 03/01/25 03/01/25 History prednisolone acetate 1 % eye See Rx Instructions .Route .COMPLEX 03/01/25 03/01/25 History drops,suspension Patient History Medical History Acute hypoxic respiratory failure hx, 10/2024, hospitalized at [facility] w/covid History of COVID-19 10/2024 Anxiety and depression Hypertension Paroxysmal atrial fibrillation currently on eliquis; no cardiology Hx of mitral valve insufficiency History of CHF (congestive heart failure) Bilateral edema of lower extremity Acute on chronic heart failure with preserved ejection fraction (HFpEF, >= 50%) hx; has f/u [place] Bilateral ankle joint pain Type 2 diabetes mellitus, uncontrolled Weakness ongoing Prolonged QT interval hx, 03/2024, hospitalized at [facility] 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 Pulmonary edema hx, 10/2024, hospitalized at [facility] and acute respiratory failure Hyperosmolar hyperglycemic state (HHS) hx, hospitalized [facility] 03/2024 Acute metabolic encephalopathy hx, hospitalized [facility] 03/2024 Severe sepsis hx, 03/2024, hospitalized at [facility] HHS (hypothenar hammer syndrome) unsure? Elevated troponin hx, hospitalized [facility] 03/2024 Unresponsive state hx, 03/2024, hospitalized at [facility] DKA (diabetic ketoacidosis) hx, hospitalized [facility] 03/2024; per records had been off of diabetic oral med and insulin for months Hyperlipidemia Surgical History Hx of right cataract extraction (02/07/25) Hx of colonoscopy History of lumbar surgery L4-L5, 40+ years ago H/O total hysterectomy Family History Father Diabetes Prostate cancer Grandmother Diabetes Aunt Colorectal cancer Brother Stroke Denies family history of Ovarian cancer Myocardial infarction Breast cancer Social History Smoking Status: Never smoker Tobacco Type: E-cigarettes / Vaping Second Hand Exposure: Yes (hx); Do You Dip or Chew Tobacco: No; Hx Alcohol Use: No Hx Substance Use: No Preferred Language: Turkmen Communication Ability: Effective Communication Ability Comment: Patient reports she has trouble seeing Visual Impairment: No Limitations Hearing Ability: Normal Life Enrichment Manager Required: No Beliefs That Will Affect Care: None marital status: Current Living Situation: Spouse Current Living Situation Comment: Lives with spouse current occupational status: retired 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. How many Children do You have: 3 Feels Safe at Home: Yes Childhood Exposure to Second-Hand Smoke: No Diet: regular Diet Comment: added more salads to diet. caffeine: Yes (soda 3 x week) during the past year weight has: remained stable Dental Care, Regularly: No Physical Activity Frequency: Does not Exercise Seatbelt Use: always Sunscreen Use: No Do you think of yourself as: straight/heterosexual Gender Identity: Female Assistive Devices: Cane Review of Systems Review of Systems: All systems reviewed & are unremarkable except as noted in HPI & below Physical Exam Constitutional: well developed; no acute distress Eyes: + anicteric sclerae; no conjunctival abn ormality ENMT: Mouth: no oral mucosal abnormality and oral mucous membranes not dry Neck: normal visual inspection and trachea midline Respiratory: + tachypneic; no respiratory distress Auscultation: lungs clear to auscultation bilaterally, + diminished lung sounds and + rales Cardiovascular: Rate/Rhythm: regular rate Heart Sounds: normal S1 and normal S2 Extremities: + edema Musculoskeletal: Extremities: no cyanosis and no clubbing Skin: + turgor decreased; no jaundice Neurologic: Motor/Sensory: no tremor and no asterixis Psychiatric: Orientation: alert and oriented x 3 Results & Data Vital Signs (Past 12 Hours) Vital Signs Temp Pulse Resp BP Pulse Ox O2 Del Method 03/01/25 10:33 87 14 93 03/01/25 10:31 181/112 H 03/01/25 10:24 84 23 94 03/01/25 10:03 86 18 93 03/01/25 10:00 180/108 H 03/01/25 09:57 89 18 95 03/01/25 09:39 83 19 95 03/01/25 09:30 187/117 H 03/01/25 09:21 83 14 95 03/01/25 09:03 84 18 95 03/01/25 09:00 172/115 H 03/01/25 08:57 85 19 94 03/01/25 08:30 83 15 93 03/01/25 08:24 84 12 93 03/01/25 08:23 93 Room Air 03/01/25 08:22 93 Room Air 03/01/25 08:13 195/113 H 03/01/25 07:59 36.7 C 86 22 192/83 H 95 Room Air Laboratory Results Laboratory Results - last 24 hr 03/01/25 03/01/25 03/01/25 08:13 08:50 08:53 WBC 7.07 RBC 3.16 L Hgb 9.3 L Hct 27.6 L MCV 87.3 MCH 29.4 MCHC 33.7 RDW Std Deviation 45.3 RDW Coeff of Abel 14.3 Plt Count 184 MPV 10.3 Immature Gran % (Auto) 0.3 Neut % (Auto) 76.8 Lymph % (Auto) 11.7 [place] % (Auto) 7.8 Eos % (Auto) 2.8 Baso % (Auto) 0.6 Neut # (Auto) 5.43 Lymph # (Auto) 0.83 L [place] # (Auto) 0.55 Eos # (Auto) 0.20 Baso # (Auto) 0.04 Immature Gran # (Auto) 0.02 Sodium 138 Potassium 4.2 Chloride 104 Carbon Dioxide 25 Anion Gap 9 BUN 68 H Creatinine 3.60 H Est Cr Clr Drug Dosing 14.2 eGFR 13.28 BUN/Creatinine Ratio 18.9 Glucose 245 H Calcium 9.7 Total Bilirubin 1.1 H AST 20 ALT 23 Alkaline Phosphatase 79 B-Natriuretic Peptide Pending Total Protein 6.9 Albumin 4.1 Globulin 2.8 Albumin/Globulin Ratio 1.5 Urine Color Yellow Urine Appearance Turbid A Urine pH 5.5 Ur Specific [place] 1.013 Urine Protein 3+ H Urine Glucose (UA) Trace H Urine Ketones Negative Urine Blood 3+ H Urine Nitrite Negative Urine Bilirubin Negative Urine Urobilinogen Negative Ur Leukocyte Esterase 3+ H Urine WBC (Auto) >50 H Urine RBC (Auto) >20 H U Hyaline Cast (Auto) 6-10 H U Epithel Cells (Auto) 0-2 Urine Bacteria (Auto) 4+ H Hyaline Casts Present A Ur Random Creatinine Pending U Random Total Protein Pending Ur Random Sodium Pending Protein/Creatinin Ratio Pending Diagnostic Findings XR chest 1V portable COMPARISON: 11/09/2024 TECHNIQUE: AP view of the chest FINDINGS: Cardiac silhouette is enlarged. Pulmonary vascular congestion with interstitial coarsening. Layering pleural effusions with dependent bibasilar consolidation. Findings are stable from prior. No pneumothorax. Bones appear grossly intact. IMPRESSION: 1. Cardiomegaly with interstitial pulmonary edema. 2. Layering pleural effusions with bibasilar consolidation favoring atelectasis. Pneumonia considered less likely. PG Care Time/CCT Total # of Minutes Spent Total Time Spent with Patient: Total time spent is greater than 50% in coordination of care (as documented) at patient's floor/unit and/or counseling patient: Coding Level of Care Code 82150 IN/OBS CONSULT LVL 4,60M Diagnoses Acute kidney injury superimposed on stage 4 chronic kidney disease N17.9; N18.4 Chronic kidney disease N18.9 Chronic kidney disease stage: unspecified stage Nephrotic range proteinuria R80.9 Acute on chronic heart failure with mildly reduced ejection fraction (HFmrEF, 41-49%) I50.23 Anemia D64.9 Anemia type: unspecified type UTI (urinary tract infection) N39.0 Primary hypertension I10 Hypertension type: primary hypertension (2) Chronic kidney disease Chronic kidney disease stage: unspecified stage Qualified Code(s): N18.9 - Chronic kidney disease, unspecified (5) Anemia Anemia type: unspecified type Qualified Code(s): D64.9 - Anemia, unspecified (7) Hypertension Hypertension type: primary hypertension Qualified Code(s): I10 - Essential (primary) hypertension
[2025-03-01 12:44] LABS: Creatinine Urine Random 49.1 mg/dl; Protein Creatinine Ratio Urine 7.8 (0-0.2); Total Protein Urine Random 382.4 mg/dl (0-11.9)
--- NOTE | 2025-03-01 13:04 | Emergency Department Note ---
Impression & Plan Acute kidney injury superimposed on stage 4 chronic kidney disease, UTI (urinary tract infection), Acute on chronic heart failure with mildly reduced ejection fraction (HFmrEF, 41-49%) ED Provider Note NAME: JEANNE WOODRUFF AGE: 69 SEX: F : 1955 ARRIVES VIA: Walk-In INFORMANT: Patient, ED PROVIDER(S): Lou Stewart MD CHIEF COMPLAINT: Fluid overload, shortness of breath HPI: This is a 69-year-old female presented for shortness of breath. Patient notes that she began having shortness of breath over the past 1 day. She notes she has had symptoms of this previously when she is fluid overloaded. She has been taking occasional extra fluid pills. She notes a intermittent episodes of difficulty breathing. She also notes urinary pressure, frequency with decreased output. She reports laying down makes symptoms much worse, sitting up is improved but still symptomatic. Exertional dyspnea is also noted. ROS: See above HPI for pertinent positives & negatives. A total of 10 systems reviewed and were otherwise negative. PAST MEDICAL HISTORY: See Below PAST SURGICAL HISTORY: See Below FAMILY HISTORY: See Below SOCIAL HISTORY: See Below HOME MEDICATIONS: See Below ALLERGIES: See Below VITALS: See Below PHYSICAL EXAMINATION: General: resting comfortably in no acute distress Head: Normocephalic and atraumatic Eyes: Normal inspection, extraocular muscles intact Ear, nose, throat: Normal external exam Neck: Normal range of motion Respiratory: Crackles at the bases Cardiovascular: Regular rate/rhythm, no murmur GI: soft, nontender, no guarding or rebound Extremities: nontender, moves all extremities Neuro: The patient awake and alert, appropriately conversive, no focal deficits, symmetric faces Skin: Warm, dry, and intact MEDICAL DECISION MAKING: This is a 69-year-old female presenting for shortness of breath. Concern for fluid overload clinically. She is having crackles and orthopnea with exertional dyspnea - Blood work reveals a anemia. Otherwise there is significant ONEIL uptrending, 3.6 at this time. This could explain patient's decreased urine output. - urinalysis reveals signs of UTI. Will order ceftriaxone at this time. - Chest x-ray reviewed showing cardiomegaly with bilateral pleural effusions upon independent interpretation -Patient will require admission at this time for CHF, ONEIL, UTI Differential diagnosis: Fluid overload, ONEIL, UTI, ACS, PE Independent History obtained from: Diagnostics interpreted by me: ECG: ECG independently interpreted by me with normal sinus rhythm, rate of 86, normal axis, normal IL, normal QRS, normal QTc, no ST segment elevations consistent with STEMI criteria Cardiac Monitoring: An order was placed for continuous cardiac monitoring. The monitor shows a rate of 85 with sinus rhythm. Past Med/Surg History Problem List (Updated 03/01/25 @ 15:35 by Lou Stewart MD) UTI (urinary tract infection) (Acute) Atrial fibrillation Diabetes type 2, controlled Acute kidney injury superimposed on stage 4 chronic kidney disease (Acute) Acute on chronic heart failure with mildly reduced ejection fraction (HFmrEF, 41-49%) (Acute) Acute hypoxic respiratory failure Pulmonary edema (Acute) Dyspnea (Acute) Nephrotic range proteinuria Chronic kidney disease (Acute) History of angina Burn of foot, right, second degree Pleural effusion Pericardial effusion Exertional angina Acute heart failure with mildly reduced ejection fraction (HFmrEF, 41-49%) Type 2 diabetes mellitus Hypoxia (Acute) Elevated troponin (Acute) ONEIL (acute kidney injury) (Acute) CHF (congestive heart failure) (Acute) Hypoxia Wound of right foot (Acute) Elevated troponin Asymptomatic hypertensive urgency Hypertensive emergency (Acute) Homonymous hemianopsia Encephalopathy (Acute) Mitral regurgitation Paroxysmal atrial fibrillation ONEIL (acute kidney injury) Neuropathic pain of both feet Anemia Diabetic neuropathy Edema of both legs (Acute) Elevated vitamin B12 level Type 2 diabetes mellitus with hyperosmolar hyperglycemic state (HHS) (Acute) Chest pain RBBB Anxiety and depression Hypertension (Acute) Lichen sclerosus et atrophicus (Acute) Noncompliance with treatment plan (Acute) Type II diabetes mellitus with neurological manifestations, uncontrolled (Chronic) Diabetes mellitus type 2, uncontrolled, with complications Medical History Acute hypoxic respiratory failure hx, 10/2024, hospitalized at [facility] w/covid History of COVID-19 10/2024 Anxiety and depression Hypertension Paroxysmal atrial fibrillation currently on eliquis; no cardiology Hx of mitral valve insufficiency History of CHF (congestive heart failure) Bilateral edema of lower extremity Acute on chronic heart failure with preserved ejection fraction (HFpEF, >= 50%) hx; has f/u matthew Guevara Bilateral ankle joint pain Type 2 diabetes mellitus, uncontrolled Weakness ongoing Prolonged QT interval hx, 03/2024, hospitalized at [facility] 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 Pulmonary edema hx, 10/2024, hospitalized at [facility]/covid and acute respiratory failure Hyperosmolar hyperglycemic state (HHS) hx, hospitalized [facility] 03/2024 Acute metabolic encephalopathy hx, hospitalized [facility] 03/2024 Severe sepsis hx, 03/2024, hospitalized at [facility] HHS (hypothenar hammer syndrome) unsure? Elevated troponin hx, hospitalized [facility] 03/2024 Unresponsive state hx, 03/2024, hospitalized at [facility] DKA (diabetic ketoacidosis) hx, hospitalized [facility] 03/2024; per records had been off of diabetic oral med and insulin for months Hyperlipidemia Surgical History Hx of right cataract extraction (02/07/25) Hx of colonoscopy History of lumbar surgery L4-L5, 40+ years ago H/O total hysterectomy Family History Father Diabetes Prostate cancer Grandmother Diabetes Aunt Colorectal cancer Brother Stroke Denies family history of Ovarian cancer Myocardial infarction Breast cancer Social History Smoking Status: Never smoker Tobacco Type: E-cigarettes / Vaping Second Hand Exposure: Yes (hx); Do You Dip or Chew Tobacco: No; Hx Alcohol Use: No Hx Substance Use: No Preferred Language: Japanese Communication Ability: Effective Communication Ability Comment: Patient reports she has trouble seeing Visual Impairment: No Limitations Hearing Ability: Normal 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 How many Children do You have: 3 Other Information That Helps Us Care for You: No Feels Safe at Home: Yes Safety Concerns: Feels Safe At This Time Childhood Exposure to Second-Hand Smoke: No Diet: regular Diet Comment: added more salads to diet. caffeine: Yes (soda 3 x week) during the past year weight has: remained stable Dental Care, Regularly: No Physical Activity Frequency: Does not Exercise Seatbelt Use: always Sunscreen Use: No Do you think of yourself as: straight/heterosexual Gender Identity: Female Assistive Devices: Cane Allergies Allergies Allergy/AdvReac Type Severity Reaction Status Date / Time empagliflozin Allergy Severe Unknown Verified 02/21/25 08:01 [From [facility]] Home Meds Home Medications Medication Instructions Recorded Confirmed carvedilol 6.25 mg tablet 6.25 mg PO BID 10/23/24 03/01/25 insulin degludec 100 unit/mL (3 8 unit subcut QAM 01/26/25 03/01/25 mL) subcutaneous pen (Tresiba FlexTouch U-100 insulin) isosorbide mononitrate 60 mg 60 mg PO QAM 01/26/25 03/01/25 tablet,extended release 24 hr sertraline 50 mg tablet 50 mg PO QAM 01/26/25 03/01/25 ketorolac 0.5 % eye drops See Rx Instructions .Route .COMPLEX 03/01/25 03/01/25 moxifloxacin 0.5 % eye drops See Rx Instructions .Route .COMPLEX 03/01/25 03/01/25 prednisolone acetate 1 % eye See Rx Instructions .Route .COMPLEX 03/01/25 03/01/25 drops,suspension Previous Rx's Medication Instructions Recorded lancets 33 gauge (OneTouch Delica #100 ea 05/28/23 Plus Lancet) aspirin 81 mg tablet,delayed 81 mg PO QAM #30 tabs 03/18/24 release OneTouch Verio test strips (blood #100 ea 03/22/24 sugar diagnostic) blood sugar diagnostic (Accu-Chek #100 ea 03/24/24 Elvira Plus test strips) blood-glucose,celery stripper,cont #1 ea 03/30/24 (Dexcom G7 Welder Manufacture) pen needle, diabetic 32 gauge x #100 ea 09/12/24 5/32" (BD Ultra-Fine Snow Pen Needle) apixaban 5 mg tablet (Eliquis) 5 mg PO BID 30 days #180 tabs 11/08/24 losartan 25 mg tablet 25 mg PO QAM #90 tabs 12/06/24 furosemide 40 mg tablet (Lasix) 40 mg PO QAM #90 tabs 01/03/25 blood-glucose sensor (Dexcom G7 #4 ea 04/02/25 Sensor device) atorvastatin 40 mg tablet 40 mg PO QPM #90 tabs 02/03/25 Results & Data (ED) Vital Signs Vital Signs - 24 hr 03/01/25 07:59 03/01/25 08:13 03/01/25 08:22 Temperature 36.7 C Temperature Source Skin Pulse Rate 86 Pulse Rate from SpO2 Sensor Respiratory Rate 22 Respiratory Depth Normal Blood Pressure 192/83 H 195/113 H Blood Pressure Mean 119 131 Pulse Oximetry 95 93 Oxygen Delivery Method Room Air Room Air Sepsis Recent Fever Within 48 Hours No Sepsis New/Unexplained Change in Mental Status N/A Sepsis Action Taken by Nursing No Action Required 03/01/25 08:23 03/01/25 08:24 03/01/25 08:30 Temperature Temperature Source Pulse Rate 84 83 Pulse Rate from SpO2 Sensor 84 82 Respiratory Rate 12 15 Respiratory Depth Blood Pressure Blood Pressure Mean Pulse Oximetry 93 93 93 Oxygen Delivery Method Room Air Sepsis Recent Fever Within 48 Hours Sepsis New/Unexplained Change in Mental Status Sepsis Action Taken by Nursing 03/01/25 08:57 03/01/25 09:00 03/01/25 09:03 Temperature Temperature Source Pulse Rate 85 84 Pulse Rate from SpO2 Sensor 85 84 Respiratory Rate 19 18 Respiratory Depth Blood Pressure 172/115 H Blood Pressure Mean 129 Pulse Oximetry 94 95 Oxygen Delivery Method Sepsis Recent Fever Within 48 Hours Sepsis New/Unexplained Change in Mental Status Sepsis Action Taken by Nursing 03/01/25 09:21 03/01/25 09:30 03/01/25 09:39 Temperature Temperature Source Pulse Rate 83 83 Pulse Rate from SpO2 Sensor 83 82 Respiratory Rate 14 19 Respiratory Depth Blood Pressure 187/117 H Blood Pressure Mean 147 Pulse Oximetry 95 95 Oxygen Delivery Method Sepsis Recent Fever Within 48 Hours Sepsis New/Unexplained Change in Mental Status Sepsis Action Taken by Nursing 03/01/25 09:57 03/01/25 10:00 03/01/25 10:03 Temperature Temperature Source Pulse Rate 89 86 Pulse Rate from SpO2 Sensor 89 86 Respiratory Rate 18 18 Respiratory Depth Blood Pressure 180/108 H Blood Pressure Mean 129 Pulse Oximetry 95 93 Oxygen Delivery Method Sepsis Recent Fever Within 48 Hours Sepsis New/Unexplained Change in Mental Status Sepsis Action Taken by Nursing 03/01/25 10:24 03/01/25 10:31 03/01/25 10:33 Temperature Temperature Source Pulse Rate 84 87 Pulse Rate from SpO2 Sensor 84 87 Respiratory Rate 23 14 Respiratory Depth Blood Pressure 181/112 H Blood Pressure Mean 125 Pulse Oximetry 94 93 Oxygen Delivery Method Sepsis Recent Fever Within 48 Hours Sepsis New/Unexplained Change in Mental Status Sepsis Action Taken by Nursing Laboratory Data 03/01/25 08:13 03/01/25 08:13 Lab Results 03/01/25 03/01/25 03/01/25 Range/Units 08:13 08:50 08:53 WBC 7.07 (4.8-10.8) K/ul RBC 3.16 L (4.20-5.40) M/uL Hgb 9.3 L (12.0-16.0) g/dl Hct 27.6 L (37.0-47.0) % MCV 87.3 (80.0-100.0) fL MCH 29.4 (25.0-34.0) pg MCHC 33.7 (32.0-36.0) g/dL RDW Std Deviation 45.3 (36.4-46.3) fL RDW Coeff of Abel 14.3 (11.5-14.5) % Plt Count 184 (130-400) K/uL MPV 10.3 (9.4-12.4) fL Immature Gran % (Auto) 0.3 % Neut % (Auto) 76.8 % Lymph % (Auto) 11.7 % [place] % (Auto) 7.8 % Eos % (Auto) 2.8 % Baso % (Auto) 0.6 % Neut # (Auto) 5.43 (1.40-6.50) K/uL Lymph # (Auto) 0.83 L (1.20-3.40) K/uL [place] # (Auto) 0.55 (0.11-0.59) K/uL Eos # (Auto) 0.20 (0.00-0.50) K/uL Baso # (Auto) 0.04 (0.00-0.20) K/uL Immature Gran # (Auto) 0.02 (0.01-0.20) K/uL Sodium 138 (136-145) mmol/L Potassium 4.2 (3.5-5.1) mmol/L Chloride 104 (98-107) mmol/L Carbon Dioxide 25 (21-32) mmol/L Anion Gap 9 (3-11) BUN 68 H (6-23) mg/dl Creatinine 3.60 H (0.6-1.2) mg/dl Est Cr Clr Drug Dosing 14.2 ml/min eGFR 13.28 BUN/Creatinine Ratio 18.9 (10-20) Glucose 245 H (70-99(Fasting)) mg/dl Calcium 9.7 (8.6-10.3) mg/dl Total Bilirubin 1.1 H (0.2-1.0) mg/dl AST 20 (13-39) U/L ALT 23 (7-52) U/L Alkaline Phosphatase 79 (34-104) U/L B-Natriuretic Peptide 3580 H (0-100) pg/ml Total Protein 6.9 (6.0-8.3) gm/dl Albumin 4.1 (3.4-5.0) gm/dl Globulin 2.8 (2.5-4.0) gm/dl Albumin/Globulin Ratio 1.5 (0.9-2) Urine Color Yellow Urine Appearance Turbid A (Clear) Urine pH 5.5 (4.5-7.5) Ur Specific [place] 1.013 (1.000-1.030) Urine Protein 3+ H (Negative) Urine Glucose (UA) Trace H (Negative) Urine Ketones Negative (Negative) Urine Blood 3+ H (Negative) Urine Nitrite Negative (Negative) Urine Bilirubin Negative (Negative) Urine Urobilinogen Negative (Negative) Ur Leukocyte Esterase 3+ H (Negative) Urine WBC (Auto) >50 H (0-5) /hpf Urine RBC (Auto) >20 H (0-2) /hpf U Hyaline Cast (Auto) 6-10 H (0-2) /lpf U Epithel Cells (Auto) 0-2 (0-2) /hpf Urine Bacteria (Auto) 4+ H (None Seen) Hyaline Casts Present A (None Presnt) /lpf Ur Random Creatinine 49.1 mg/dl U Random Total Protein 382.4 H (0-11.9) mg/dl Ur Random Sodium 88 mmol/L Protein/Creatinin Ratio 7.8 H (0-0.2) Administered Medications Isosorbide Mononitrate (Isosorbide [place] Extended Rel 60 Mg Tabcr) 60 mg PO QAM PENDING SALE TO [facility] Stop: 03/31/25 14:44 Last Admin: 03/01/25 15:26 Dose: 60 mg Documented By: VANESSA Ketorolac Tromethamine (Ketorolac 0.5% Op Soln 5 Ml Btl) 1 drops OPB QID SUMAYA Stop: 03/31/25 16:59 Last Admin: 03/01/25 15:27 Dose: 1 drops Documented By: VANESSA Prednisolone Acetate (Prednisolone Acetate 1% Op Susp 5 Ml Btl) 1 drops OPB TID SUMAYA Stop: 03/31/25 14:44 Last Admin: 03/01/25 15:26 Dose: 1 drops Documented By: VANESSA Discontinued Medications Ceftriaxone Sodium (Rocephin) 2,000 mg in 50 mls @ 100 mls/hr IV NOW STA Stop: 03/01/25 10:03 Last Infusion: 03/01/25 10:31 Dose: Infused Documented By: Admin: 03/01/25 09:55 Dose: 100 mls/hr Documented By: DORA Iron Sucrose 200 mg/ Sodium (Chloride) 110 mls @ 220 mls/hr IV TODAY ONE Stop: 03/01/25 14:15 Last Admin: 03/01/25 15:12 Dose: 220 mls/hr Documented By: VANESSA Imaging Data Radiologist's Impression: Chest X-Ray 03/01/25 08:11 XR chest 1V portable HISTORY: 69 years-old Female Dyspnea acute shortness of breath COMPARISON: 11/09/2024 TECHNIQUE: AP view of the chest FINDINGS: Cardiac silhouette is enlarged. Pulmonary vascular congestion with interstitial coarsening. Layering pleural effusions with dependent bibasilar consolidation. Findings are stable from prior. No pneumothorax. Bones appear grossly intact. IMPRESSION: 1. Cardiomegaly with interstitial pulmonary edema. 2. Layering pleural effusions with bibasilar consolidation favoring atelectasis. Pneumonia considered less likely. ACT 112: Negative or not required by law. The above report was generated using voice recognition software. It may contain grammatical, syntax or spelling errors. Electronically signed by: Skip Evans M.D. 03/01/2025 8:42 AM Abdomen Ultrasound 03/01/25 11:57 US abdomen complete CLINICAL HISTORY: poss L pyelo, ONEIL, poss ascites/liver disease COMPARISON STUDY: CT of the abdomen and pelvis March 05, 2024. FINDINGS: Bilateral pleural effusions are incidentally noted. Liver is sonographically normal. There are no gallstones within the gallbladder. There is no gallbladder wall thickening. Pancreas is unremarkable by sonography although the head and tail are slightly obscured. Caliber of the abdominal aorta is normal. Visualized portions of the IVC are patent. There is no biliary ductal dilatation. Size of the spleen is normal. The right kidney measures 10.5 x 4.9 x 5.5 cm and the left kidney measures 10.8 x 5.7 x 5.2 cm. There is no hydronephrosis. 5 mm left lower pole renal cyst is present. No renal fluid collection is present. No focal abnormality within the kidneys is identified. IMPRESSION: 1. No hydronephrosis. 2. No renal fluid collection. 3. No gallstones or biliary ductal dilatation. 4. Bilateral pleural effusions. ACT 112: Negative or not required by law. Electronically signed by: Roland Swan M.D. 03/01/2025 1:25 PM Discharge Plan Visit Data Chief Complaint: Shortness of Breath/Dyspnea Stated Complaint: HARD TO BREATH, URGENCY/URINARY PRESSURE ED Provider: Lou Stewart Discharge Problem: Acute kidney injury superimposed on stage 4 chronic kidney disease, UTI (urinary tract infection), Acute on chronic heart failure with mildly reduced ejection fraction (HFmrEF, 41-49%) Patient Disposition: Admitted As Inpatient Discharge Problem: UTI (urinary tract infection) Qualifiers: Urinary tract infection type: acute cystitis Hematuria presence: with hematuria Qualified Code(s): N30.01 - Acute cystitis with hematuria
--- NOTE | 2025-03-01 13:27 | Ultrasound Report ---
US abdomen complete CLINICAL HISTORY: poss L pyelo, ONEIL, poss ascites/liver disease COMPARISON STUDY: CT of the abdomen and pelvis March 05, 2024. FINDINGS: Bilateral pleural effusions are incidentally noted. Liver is sonographically normal. There are no gallstones within the gallbladder. There is no gallbladder wall thickening. Pancreas is unrema rkable by sonography although the head and tail are slightly obscured. Caliber of the abdominal aorta is normal. Visualized portions of the IVC are patent. There is no biliary ductal dilatation. Size of the spleen is normal. The right kidney measures 10.5 x 4.9 x 5.5 cm and the left kidney measures 10. 8 x 5.7 x 5.2 cm. There is no hydronephrosis. 5 mm left lower pole renal cyst is present. No renal fl uid collection is present. No focal abnormality within the kidneys is identified. IMPRESSION: 1. No hydronephrosis. 2. No renal fluid collection. 3. No gallstones or biliary ductal dilatation. 4. Bilateral pleural effusions. ACT 112: Negative or not required by law. Electronically signed by: Roland Swan M.D. 03/01/2025 1:25 PM
[2025-03-01] MEDS ORDERED: CARBOHYDRATES FOR HYPOGLYCEMIA PO PRN (14:30)
[2025-03-01] MEDS ORDERED: GLUCOSE 40% GEL 15 GM TUBE PO PRN (14:30)
[2025-03-01] MEDS ORDERED: MAGNESIUM HYDROXIDE SUSP 30 ML UDC PO PRN (14:30)
[2025-03-01] MEDS ORDERED: GLUCOSE 10 TAB/TUBE PO PRN (14:30)
[2025-03-01] MEDS ORDERED: GLUCAGON FOR INJ 1 MG VIAL SQ PRN (14:30)
[2025-03-01] MEDS ORDERED: DEXTROSE 50% 50 ML SYRINGE IV PRN (14:30)
[2025-03-01] MEDS ORDERED: POLYETHYLENE (MIRALAX) 17 GM PACK PO PRN (14:30)
[2025-03-01] MEDS: IRON SUCROSE 200 MG in SODIUM CHLORIDE 0.9% 100 ML IV ONE (15:12)
[2025-03-01] MEDS: prednisoLONE acetate 1% OP SUSP 5 ML BTL OPB SCH (15:26)
[2025-03-01] MEDS: ISOSORBIDE MONO EXTENDED REL 60 MG TABCR PO SCH (15:26)
[2025-03-01] MEDS: KETOROLAC 0.5% OP SOLN 5 ML BTL OPB SCH (15:27)
[2025-03-01] MEDS: hydrALAZINE TAB 50 MG TAB PO SCH (15:49)
[2025-03-01] MEDS: INSULIN ASPART PER UNIT CHARGE SC SCH (16:38)
[2025-03-01] MEDS: carvediloL 12.5 MG TAB PO SCH (16:40)
[2025-03-01] MEDS: MELATONIN 3 MG TAB PO PRN (20:12)
[2025-03-01] MEDS: ATORVASTATIN 40 MG TAB PO SCH (20:12)
[2025-03-01] MEDS: ACETAMINOPHEN 325 MG TAB PO PRN (20:12)
[2025-03-01] MEDS ORDERED: carvediloL 6.25 MG TAB PO SCH (21:00)
[2025-03-02 06:30] LABS: Hematocrit (blood only) 21.4 % (37.0-47.0); Hemoglobin 7.4 g/dl (12.0-16.0); Mean Corpuscular Hgb Conc 34.6 g/dL (32.0-36.0); Mean Corpuscular Volume 86.6 fL (80.0-100.0); Mean Platelet Volume 10.3 fL (9.4-12.4); Platelet Count 151 K/uL (130-400); RDW Coefficient of Variation 14.3 % (11.5-14.5); Red Blood Count 2.47 M/uL (4.20-5.40); White Blood Count 5.06 K/ul (4.8-10.8)
[2025-03-02 07:03] LABS: BUN Creatinine Ratio 18.6 (10-20); Calcium 8.5 mg/dl (8.6-10.3); Creatinine Clr Calc Pharmacy 13.4 ml/min; Phosphorus 3.9 mg/dl (2.5-4.9)
[2025-03-02 07:17] LABS: Thyroid Stimulating Hormone 2.025 uIu/ml (0.300-4.500)
[2025-03-02 07:23] LABS: Ferritin 140.9 ng/ml (8-388)
[2025-03-02] MEDS: cefTRIAXone SODIUM 1,000 MG/50 ML BAG IV SCH (08:18)
[2025-03-02] MEDS: ASPIRIN 81 MG ECTAB PO SCH (08:19)
[2025-03-02] MEDS: LANTUS PER UNIT CHARGE SQ SCH (08:19)
[2025-03-02] MEDS: SERTRALINE HCL 50 MG TABLET PO SCH (08:19)
--- NOTE | 2025-03-02 09:36 | Nephrology Progress Note ---
Date of Service March 02, 2025 Assessment & Plan (1) Acute kidney injury superimposed on stage 4 chronic kidney disease: Plan: Non-oliguric. Electrolytes acceptable. Continues to demonstrate evidence of volume overload. I will continue with cautious diuresis. Bumex 80 mg IV provided this AM. Please document strict I/O's and daily weights. Goal is to encourage slightly negative fluid balance (~1 L/d). Baseline creatinine ~2.1-2.4 mg/dL. Clinical presentation concerning for progression of CKD or possible ATN in setting of UTI and cardiorenal syndrome. Goals of care were discussed. Carol told me again today that she would not want dialysis under any circumstances. Thankfully, there is no emergent indication at this time. She acknowledges that her kidney dysfunction is advanced. Medications are appropriate for kidney dysfunction. Hold losartan pending additional monitoring. Urine studies suggestive of cystitis/UTI. Abdominal US did not demonstrate renal obstruction. Document strict I/O's. Repeat metabolic profile tomorrow AM. (2) Chronic kidney disease: Plan: CKD IV-V A3. CKD attributed to DKD and hypertension by history. Carol was evaluated by Dr. Hensley in the clinic in the past but has not maintained regular outpatient nephrology follow up. She told me this AM that she would not pursue dialysis under any circumstances. (3) Nephrotic range proteinuria: (4) Acute on chronic heart failure with mildly reduced ejection fraction (HFmrEF, 41-49%): Plan: Plan of care discussed with cardiology. TTE reviewed" LVEF 40-45% with distal anterior/lateral hypokinesis; MR moderate to severe, TR moderate. I would suggest holding RAASi in the setting of ONEIL. Avoid SGLT2i in advanced kidney dysfunction and ONEIL. Diuretics to encourage negative fluid balance. (5) Anemia: Plan: Hgb 9.3. Tsat 18; ferritin 261. Dropped overnight. Monitor/recheck. Denies any signs of bleeding. Epogen 70444 units x 1 this AM. Venofer 200 mg x 1 yesterday. Additional 200 mg provided this AM. (6) UTI (urinary tract infection): Plan: UA/microscopy consistent with cystitis. Thankfully, Carol denies significant symptoms. Started on Ceftriaxone. Cultures pending. (7) Hypertension: Plan: Hold losartan in the setting of ONEIL. Continue carvedilol, hydralazine, Imdur as Rx. Diuretics to encourage negative fluid balance. Admission and Anticipated Discharge Date Admission Date: March 01, 2025 Subjective No acute events overnight. Carol feels well this AM. She feels much better than she did yesterday. She reports continued orthopnea but no dyspnea at rest. Activity tolerance improved. She denies any chest pains or palpitations. She denies lightheadedness of dizziness. No fevers or chills. No urinary symptoms. Carol notes that UOP was not completely documented. She does not feel that she made much urine. Weight is stable. I/O -140. Review of Systems Review of Systems: All systems reviewed & are unremarkable except as noted in HPI & below Physical Exam Constitutional: well developed; no acute distress Eyes: + anicteric sclerae; no conjunctival abn ormality ENMT: Mouth: no oral mucosal abnormality and oral mucous membranes not dry Neck: normal visual inspection and trachea midline Respiratory: + tachypneic; no respiratory distress Auscultation: lungs clear to auscultation bilaterally, + diminished lung sounds and + rales Cardiovascular: Rate/Rhythm: regular rate Heart Sounds: normal S1, normal S2 and + murmur Vessels: + JVD Extremities: + edema Musculoskeletal: Extremities: no cyanosis and no clubbing Skin: + turgor decreased; no jaundice Neurologic: Motor/Sensory: no tremor and no asterixis Psychiatric: Orientation: alert and oriented x 3 Results & Data Vital Signs (Past 12 Hours) Vital Signs Temp Pulse Pulse Resp BP Pulse Ox O2 Del Method 03/02/25 08:00 66 03/02/25 08:00 Room Air 03/02/25 07:13 36.4 C L 69 19 150/87 H 94 Room Air 03/02/25 03:10 36.5 C 64 20 141/79 H 94 Room Air 03/01/25 22:43 36.7 C 62 20 127/75 92 Room Air 03/01/25 22:01 65 Laboratory Results Laboratory Results - last 24 hr 03/01/25 03/01/25 03/01/25 08:13 08:53 15:49 WBC RBC Hgb Hct MCV MCH MCHC RDW Std Deviation RDW Coeff of Abel Plt Count MPV Sodium Potassium Chloride Carbon Dioxide Anion Gap BUN Creatinine Est Cr Clr Drug Dosing eGFR BUN/Creatinine Ratio Glucose POC Glucose 209 H Calcium Phosphorus Magnesium Iron Transferrin Ferritin B-Natriuretic Peptide 3580 H Vitamin B12 TSH Ur Random Creatinine 49.1 U Random Total Protein 382.4 H Ur Random Sodium 88 Protein/Creatinin Ratio 7.8 H 03/01/25 03/02/25 03/02/25 20:06 05:41 07:12 WBC 5.06 RBC 2.47 L Hgb 7.4 L Hct 21.4 L MCV 86.6 MCH 30.0 MCHC 34.6 RDW Std Deviation 44.0 RDW Coeff of Abel 14.3 Plt Count 151 MPV 10.3 Sodium 140 Potassium 4.0 Chloride 108 H Carbon Dioxide 25 Anion Gap 7 BUN 71 H Creatinine 3.82 H Est Cr Clr Drug Dosing 13.4 eGFR 12.36 BUN/Creatinine Ratio 18.6 Glucose 151 H POC Glucose 159 H 151 H Calcium 8.5 L Phosphorus 3.9 Magnesium 2.0 Iron 240 H Transferrin 215 Ferritin 140.9 B-Natriuretic Peptide Vitamin B12 635 TSH 2.025 Ur Random Creatinine U Random Total Protein Ur Random Sodium Protein/Creatinin Ratio PG Care Time/CCT Total # of Minutes Spent Total Time Spent with Patient: Total time spent is greater than 50% in coordination of care (as documented) at patient's floor/unit and/or counseling patient: Coding Level of Care Code 72275 SUB INP/OBS CARE 3/50MIN Diagnoses Acute kidney injury superimposed on stage 4 chronic kidney disease N17.9; N18.4 Chronic kidney disease N18.9 Chronic kidney disease stage: unspecified stage Nephrotic range proteinuria R80.9 Acute on chronic heart failure with mildly reduced ejection fraction (HFmrEF, 41-49%) I50.23 Anemia D64.9 Anemia type: unspecified type UTI (urinary tract infection) N30.01 Hematuria presence: with hematuria Urinary tract infection type: acute cystitis Primary hypertension I10 Hypertension type: primary hypertension (2) Chronic kidney disease Chronic kidney disease stage: unspecified stage Qualified Code(s): N18.9 - Chronic kidney disease, unspecified (5) Anemia Anemia type: unspecified type Qualified Code(s): D64.9 - Anemia, unspecified (6) UTI (urinary tract infection) Hematuria presence: with hematuria Urinary tract infection type: acute cystitis Qualified Code(s): N30.01 - Acute cystitis with hematuria (7) Hypertension Hypertension type: primary hypertension Qualified Code(s): I10 - Essential (primary) hypertension
--- NOTE | 2025-03-02 09:46 | Electrocardiogram Report ---
Test Reason : Blood Pressure : */* mmHG Vent. Rate : 86 BPM Atrial Rate : 86 BPM P-R Int : 126 ms QRS Dur : 94 ms QT Int : 384 ms P-R-T Axes : 42 18 62 degrees QTcB Int : 459 ms Normal sinus rhythm Normal ECG When compared with ECG of 09-Nov-2024 11:29, Minimal criteria for Anterior infarct are no longer Present Nonspecific T wave abnormality now evident in Lateral leads Confirmed by Ian Mcbride ([id number]) on 03/02/2025 9:45:39 AM Referred By: Confirmed By: Ian Mcbride
[2025-03-02] MEDS: FUROSEMIDE 40 MG/4 ML VIAL IV ONE (10:10)
[2025-03-02] MEDS: EPOETIN ALFA 10,000 UNITS/ML VIAL SQ ONE (10:10)
[2025-03-02] MEDS: IRON SUCROSE 200 MG in SODIUM CHLORIDE 0.9% 100 ML IV ONE (10:12)
--- NOTE | 2025-03-02 10:24 | Cardiology Progress Note ---
Date of Service March 02, 2025 Assessment & Plan (1) Acute on chronic heart failure with mildly reduced ejection fraction (HFmrEF, 41-49%): (2) Pulmonary edema: (3) Pleural effusion: (4) Paroxysmal atrial fibrillation: (5) Mitral regurgitation: (6) Chronic kidney disease: Plan Mrs. Cavazos is a 69-year-old female with a history of Hypertension, Dyslipidemia, Paroxysmal Atrial Fibrillation, HFmrEF, Cardiomyopathy (LVEF 40% to 45%), Mitral Regurgitation, Tricuspid Regurgitation, Stroke, Type 2 Diabetes Mellitus, and CKD who presented yesterday with an Acute Exacerbation of HFmrEF, Hypervolemia, Whole Body Fluid Overload, and ONEIL. She feels much better than she did yesterday. She continues to experience orthopnea but no shortness of breath at rest. Exertional tolerance has improved. Peripheral edema much better as well. She denies any chest pain, heaviness, tightness, pressure, or discomfort. She denies any palpitations, syncope, or near syncope. No fevers or chills. Patient states that her urine output was not completely documented. She does not feel that she made much urine. Weight is stable. I&O's show a negative fluid balance of -140 mL. She is compliant with her medications. CXR consistent with pulmonary edema, bilateral pleural effusions, and cardi omegaly. Echocardiogram shows reduced LV systolic function, LVEF is 40% to 45% with mid to distal anterior and anterolateral hypokinesis, [id number] mitral regurgitation, moderate left atrial enlargement, moderate tricuspid regurgitation, trace pericardial effusion, and RVSP is calculated at 68 mmHg. BNP is elevated at > 3000 pg/mL. Recommend the followin. Continue Coreg 12.5 mg b.i.d.. 2. Hold Losartan due to ONEIL. 3. Continue Imdur ER 60 mg daily. 4. Continue Hydralazine 50 mg every 8 hours. 5. Use diuretics as needed while closely monitoring renal function and electrolytes -- IV Bumex given this morning. 6. Strict low sodium diet. 7. Monitor daily body weights. 8. Monitor I&O's. 9. Continue Atorvastatin 40 mg daily. 10. Continue Aspirin 81 mg daily. We will continue to follow this patient throughout her hospitalization and following discharge. She is a good candidate to follow-up in our Heart Failure Clinic. Admission and Anticipated Discharge Date Admission Date: March 01, 2025 Subjective Mrs. Cavazos is a 69-year-old female with a history of Hypertension, Dyslipidemia, Paroxysmal Atrial Fibrillation, HFmrEF, Cardiomyopathy (LVEF 40% to 45%), Mitral Regurgitation, Tricuspid Regurgitation, Stroke, Type 2 Diabetes Mellitus, and CKD who presented yesterday with an Acute Exacerbation of HFmrEF, Hypervolemia, Whole Body Fluid Overload, and ONEIL. She feels much better than she did yesterday. She continues to experience orthopnea but no shortness of breath at rest. Exertional tolerance has improved. Peripheral edema much better as well. She denies any chest pain, heaviness, tightness, pressure, or discomfort. She denies any palpitations, syncope, or near syncope. No fevers or chills. Patient states that her urine output was not completely documented. She does not feel that she made much urine. Weight is stable. I&O's show a negative fluid balance of -140 mL. Review of Systems Review of Systems: -- As per HPI. Physical Exam Physical Exam: Blood pressure 150/87, pulse 66 and regular, SpO2 94% on room air. GENERAL: Patient is in no distress. HEENT: Head is atraumatic, normocephalic. EOM's intact. Facies symmetric. No perioral cyanosis. NECK: JVD is noted. JVP remains elevated. Carotid upstrokes are + 2 bilaterally. CHEST/LUNGS: Absent breath sounds in the right base, left basilar crackles. CVS: S1 and S2 are regular without murmurs, gallops, or rubs. PMI is nondisplaced. No lifts, heaves, or thrills. No abdominal aortic or renal bruits. ABDOMINAL EXAM: Bowel sounds are present. Abdomen appears to be less distended. EXTREMITIES: No clubbing or cyanosis. +2 pretibial edema. Extremities are well perfused. NEUROLOGIC EXAM: Patient is awake, alert, and oriented. Pleasant and cooperative. Answers questions appropriately. Speech is clear. WINDER FIXER: -- Sinus rhythm in the 60's and 70's bpm range. Results & Data Vital Signs (Past 12 Hours) Vital Signs Temp Pulse Pulse Resp BP Pulse Ox O2 Del Method 03/02/25 08:00 66 03/02/25 08:00 Room Air 03/02/25 07:13 36.4 C L 69 19 150/87 H 94 Room Air 03/02/25 03:10 36.5 C 64 20 141/79 H 94 Room Air 03/01/25 22:43 36.7 C 62 20 127/75 92 Room Air Laboratory Results Laboratory Results - last 24 hr 03/01/25 03/01/25 03/01/25 08:13 08:53 15:49 WBC RBC Hgb Hct MCV MCH MCHC RDW Std Deviation RDW Coeff of Abel Plt Count MPV Sodium Potassium Chloride Carbon Dioxide Anion Gap BUN Creatinine Est Cr Clr Drug Dosing eGFR BUN/Creatinine Ratio Glucose POC Glucose 209 H Calcium Phosphorus Magnesium Iron Transferrin Ferritin B-Natriuretic Peptide 3580 H Vitamin B12 TSH Ur Random Creatinine 49.1 U Random Total Protein 382.4 H Ur Random Sodium 88 Protein/Creatinin Ratio 7.8 H 03/01/25 03/02/25 03/02/25 20:06 05:41 07:12 WBC 5.06 RBC 2.47 L Hgb 7.4 L Hct 21.4 L MCV 86.6 MCH 30.0 MCHC 34.6 RDW Std Deviation 44.0 RDW Coeff of Abel 14.3 Plt Count 151 MPV 10.3 Sodium 140 Potassium 4.0 Chloride 108 H Carbon Dioxide 25 Anion Gap 7 BUN 71 H Creatinine 3.82 H Est Cr Clr Drug Dosing 13.4 eGFR 12.36 BUN/Creatinine Ratio 18.6 Glucose 151 H POC Glucose 159 H 151 H Calcium 8.5 L Phosphorus 3.9 Magnesium 2.0 Iron 240 H Transferrin 215 Ferritin 140.9 B-Natriuretic Peptide Vitamin B12 635 TSH 2.025 Ur Random Creatinine U Random Total Protein Ur Random Sodium Protein/Creatinin Ratio Medications Administered Medication List Acetaminophen (Acetaminophen 325 Mg Tab) 650 mg PO Q4H PRN PRN Reason: Pain or Fever Stop: 03/31/25 14:29 Last Admin: 03/01/25 20:12 Dose: 650 mg Documented By: KELLIE Aspirin (Aspirin 81 Mg Ectab) 81 mg PO QAM [facility] Stop: 04/01/25 08:59 Last Admin: 03/02/25 08:19 Dose: 81 mg Documented By: GUS Atorvastatin Calcium (Atorvastatin 40 Mg Tab) 40 mg PO QPM [facility] Stop: 03/31/25 20:59 Last Admin: 03/01/25 20:12 Dose: 40 mg Documented By: KELLIE Carvedilol (Carvedilol 12.5 Mg Tab) 12.5 mg PO BIDM [facility] Stop: 03/31/25 16:59 Last Admin: 03/02/25 08:18 Dose: 12.5 mg Documented By: Admin: 03/01/25 16:40 Dose: 12.5 mg Documented By: VANESSA Hydralazine HCl (Hydralazine Tab 50 Mg Tab) 50 mg PO Q8H [facility] Stop: 03/31/25 15:29 Last Admin: 03/02/25 08:17 Dose: 50 mg Documented By: Admin: 03/01/25 23:08 Dose: 50 mg Documented By: Admin: 03/01/25 15:49 Dose: 50 mg Documented By: VANESSA Ceftriaxone Sodium (Rocephin) 1,000 mg in 50 mls @ 100 mls/hr IV Q24H [facility] Stop: 03/09/25 08:59 Last Infusion: 03/02/25 08:48 Dose: Infused Documented By: Admin: 03/02/25 08:18 Dose: 100 mls/hr Documented By: GUS Insulin Aspart (Insulin Aspart Per Unit Charge) 0 units SC ACHS [facility] Stop: 03/31/25 16:29 Last Admin: 03/02/25 08:19 Dose: 2 units Documented By: GUS Co-signed By: ALICIA Admin: 03/01/25 20:07 Dose: Not Given Documented By: Admin: 03/01/25 16:38 Dose: 3 units Documented By: VANESSA Co-signed By: BEBE Insulin Glargine (Lantus Per Unit Charge) 5 units SQ [facility] Stop: 04/01/25 08:59 Last Admin: 03/02/25 08:19 Dose: 5 units Documented By: GUS Co-signed By: ALICIA Isosorbide Mononitrate (Isosorbide [place] Extended Rel 60 Mg Tabcr) 60 mg PO QAM [facility] Stop: 03/31/25 14:44 Last Admin: 03/02/25 08:19 Dose: 60 mg Documented By: Admin: 03/01/25 15:26 Dose: 60 mg Documented By: VANESSA Ketorolac Tromethamine (Ketorolac 0.5% Op Soln 5 Ml Btl) 1 drops OPB QID [facility] Stop: 03/31/25 16:59 Last Admin: 03/02/25 08:18 Dose: 1 drops Documented By: Admin: 03/01/25 20:13 Dose: 1 drops Documented By: Admin: 03/01/25 15:27 Dose: 1 drops Documented By: VANESSA Melatonin (Melatonin 3 Mg Tab) 3 mg PO HS PRN PRN Reason: Sleep Stop: 03/31/25 14:29 Last Admin: 03/01/25 20:12 Dose: 3 mg Documented By: KELLIE Prednisolone Acetate (Prednisolone Acetate 1% Op Susp 5 Ml Btl) 1 drops OPB TID [facility] Stop: 03/31/25 14:44 Last Admin: 03/02/25 08:18 Dose: 1 drops Documented By: Admin: 03/01/25 20:12 Dose: 1 drops Documented By: Admin: 03/01/25 15:26 Dose: 1 drops Documented By: VANESSA Sertraline HCl (Sertraline Hcl 50 Mg Tablet) 50 mg PO QAM [facility] Stop: 04/01/25 08:59 Last Admin: 03/02/25 08:19 Dose: 50 mg Documented By: GUS Discontinued Medications Epoetin Edison (Epoetin Edison 10,000 Units/Ml Vial) 10,000 units SQ ONE ONE Stop: 03/02/25 09:32 Last Admin: 03/02/25 10:10 Dose: 10,000 units Documented By: GUS Furosemide (Furosemide 40 Mg/4 Ml Vial) 80 mg IV ONE ONE Stop: 03/02/25 09:34 Last Admin: 03/02/25 10:10 Dose: 80 mg Documented By: GUS Ceftriaxone Sodium (Rocephin) 2,000 mg in 50 mls @ 100 mls/hr IV NOW STA Stop: 03/01/25 10:03 Last Infusion: 03/01/25 10:31 Dose: Infused Documented By: Admin: 03/01/25 09:55 Dose: 100 mls/hr Documented By: ODRA Iron Sucrose 200 mg/ Sodium (Chloride) 110 mls @ 220 mls/hr IV TODAY ONE Stop: 03/01/25 14:15 Last Infusion: 03/01/25 15:50 Dose: Infused Documented By: Admin: 03/01/25 15:12 Dose: 220 mls/hr Documented By: VANESSA Iron Sucrose 200 mg/ Sodium (Chloride) 110 mls @ 220 mls/hr IV TODAY ONE Stop: 03/02/25 10:00 Last Admin: 03/02/25 10:12 Dose: 220 mls/hr Documented By: GUS PG Care Time/CCT Total # of Minutes Spent Total Time Spent with Patient: Total time spent is greater than 50% in coordination of care (as documented) at patient's floor/unit and/or counseling patient:38 Coding [place] [address] SUB INP/OBS CARE 3/50MIN Patient Type Established History Detailed Exam Detailed Medical Decision Making High Complexity Diagnoses Acute on chronic heart failure with mildly reduced ejection fraction (HFmrEF, 41-49%) I50.23 Acute pulmonary edema J81.0 Chronicity: acute Pleural effusion J90 Paroxysmal atrial fibrillation I48.0 Nonrheumatic mitral valve regurgitation I34.0 Cardiac valve disease etiology: nonrheumatic Chronic kidney disease N18.9 Chronic kidney disease stage: unspecified stage Time Spent (min) 55 (2) Pulmonary edema Chronicity: acute Qualified Code(s): J81.0 - Acute pulmonary edema (5) Mitral regurgitation Cardiac valve disease etiology: nonrheumatic Qualified Code(s): I34.0 - Nonrheumatic mitral (valve) insufficiency (6) Chronic kidney disease Chronic kidney disease stage: unspecified stage Qualified Code(s): N18.9 - Chronic kidney disease, unspecified
--- NOTE | 2025-03-02 17:13 | Hospitalist Progress Note ---
Date of Service March 02, 2025 Assessment & Plan (1) Acute on chronic heart failure with mildly reduced ejection fraction (HFmrEF, 41-49%): (2) Acute kidney injury superimposed on stage 4 chronic kidney disease: (3) Diabetes type 2, controlled: (4) Atrial fibrillation: Plan 69-year-old with heart failure with midrange range ejection fraction, atrial fibrillation, CKD stage IV as well as type 2 diabetes on insulin who was admitted with acute on chronic heart failure and ONEIL # acute on chronic heart failure - total body fluid overloaded # bilateral right greater than left pleural effusions. Probably related to cardiorenal failure # suspect ascites, though labs do not indicate decompensated cirrhosis. Probably related to cardiorenal failure # atrial fibrillation echo reviewedEF 40-45% there is been some increase in her MR now moderate to severe, moderate TR -BNP severely elevated at 3000 - cautiously diuresing Bumex IV given this morning per prison librarian -continue imdur, carvedilol -she may benefit from thoracentesis for symptom relief so I held her apixaban ONEIL on CKD stage IV - non-oluguric. thought to have chronic kidney disease related to diabetes and hypertension, had 3g proteinuria on previous nephrology evaluation ONEIL with ATN potentially cardiorenal failure, could also be progression of CKD - Dr. Bartholomew discussed with her and she does not want to be on dialysis - reviewed recommendations and prison librarian note today - hold ARB, avoid nephrotoxins - monitor UOP and BMP, Mag, phos # E. coli UTIsensitivities pending continue ceftriaxone # R>>L pleural effusions / poss ascites - consider right-sided thoracentesis tomorrow # DM type 2 - recent A1c at goal - continue long acting and premeal/correctional short acting insulin - ordered very conservative dosing because of poor renal function and lots of her body weight is water - blood glucose at goal today # Anemia - longstanding, past notes mention hypoproliferative and referred to hematology - unclear whether ever seen. Would expect anemia related to CKD at this point - iron studies and B12 are adequate - MELVI per nephrology - Hg drop overnight 9.3-->7.4 no evidence of bleeding, may be volume shifts, check CBC in AM # recent cataract surgery - confirmed and ordered her eye drops PT/OT eval DVT ppx - apixaban held, restart after thoracentesis Admission and Anticipated Discharge Date Admission Date: March 01, 2025 Subjective Carol and feels much better today she feels like her edema has improved and dyspnea has improved. She is not having any dyspnea on exertion though she really has not been up outside of the room. She continues to have some orthopnea she has not noticed a big increase in urine output I's and O's were not adequately recorded Physical Exam 2 Physical Exam: PHYSICAL EXAMINATION Last 24h vital signs reviewed, see documentation in flowsheet General: looks improved sitting up in bed awake and alert HEENT: Normocephalic, atraumatic, pupils round and equal, sclerae anicteric, no conjunctival injection, moist mucus membranes Lungs: Normal respiratory effort. Dull to percussion at least half-way up on the right and one quarter way up on the left, left basilar crackles, no wheezing Heart: Regular rate and rhythm, no murmurs. JVD is still hard to see probably elevated Abdomen: Soft, nontender, mildly distended seems less so, probable small to moderate ascites. Bowel sounds present. Extremities: Warm, dry, well-perfused. 1-2+ bilateral lower extremity pitting edema up to the knees. definitely improved compared to yesterday Neuro: Alert and oriented x hospital and situation, face symmetric, moves 4 extremities well Psych: Normal affect and behavior Results & Data Results & Data Vital Signs (Past 12 Hours) Vital Signs Temp Pulse Pulse Resp BP Pulse Ox O2 Del Method 03/02/25 15:30 36.2 C L 63 16 126/73 96 Room Air 03/02/25 14:56 65 03/02/25 11:41 36.3 C L 62 18 142/82 H 95 Room Air 03/02/25 08:00 66 03/02/25 08:00 Room Air 03/02/25 07:13 36.4 C L 69 19 150/87 H 94 Room Air Laboratory Results 03/02/25 05:41 03/02/25 05:41 PG Care Time/CCT Total # of Minutes Spent Total Time Spent with Patient: Total time spent is greater than 50% in coordination of care (as documented) at patient's floor/unit and/or counseling patient: Coding Level of Care Code 88545 SUB INP/OBS CARE 3/50MIN Diagnoses Acute on chronic heart failure with mildly reduced ejection fraction (HFmrEF, 41-49%) I50.23 Acute kidney injury superimposed on stage 4 chronic kidney disease N17.9; N18.4 Diabetes type 2, controlled E11.9 Atrial fibrillation I48.91
[2025-03-03 06:40] LABS: Hematocrit (blood only) 22.5 % (37.0-47.0); Hemoglobin 7.5 g/dl (12.0-16.0); Mean Corpuscular Hemoglobin 29.4 pg (25.0-34.0); Mean Corpuscular Hgb Conc 33.3 g/dL (32.0-36.0); Mean Corpuscular Volume 88.2 fL (80.0-100.0); Mean Platelet Volume 10.4 fL (9.4-12.4); Platelet Count 157 K/uL (130-400); RDW Coefficient of Variation 14.4 % (11.5-14.5); RDW Standard Deviation 46.5 fL (36.4-46.3); Red Blood Count 2.55 M/uL (4.20-5.40); White Blood Count 4.74 K/ul (4.8-10.8)
[2025-03-03 06:57] LABS: BUN Creatinine Ratio 19.4 (10-20); Calcium 8.6 mg/dl (8.6-10.3); Creatinine Clr Calc Pharmacy 12.9 ml/min; Potassium 3.8 mmol/L (3.5-5.1)
[2025-03-03 08:13] LABS: Total Protein 5.6 gm/dl (6.0-8.3)
--- NOTE | 2025-03-03 09:38 | Nephrology Progress Note ---
Date of Service March 03, 2025 Assessment & Plan (1) Acute kidney injury superimposed on stage 4 chronic kidney disease: Plan: Non-oliguric. Electrolytes acceptable. Volume status improved on exam following IV furosemide yesterday. Symptoms have significantly improved. Thankfully, creatinine is relatively stable. I will try switching to PO furosemide this AM. Furosemide 80 mg PO provided. Document strict I/O's and daily weights. Goal is to encourage slightly negative fluid balance. Baseline creatinine ~2.1-2.4 mg/dL. Clinical presentation concerning for progression of CKD or possible ATN in setting of UTI and cardiorenal syndrome. Goals of care were discussed. Carol has established that she would not want dialysis under any circumstances. Thankfully, there is no emergent indication at this time. She acknowledges that her kidney dysfunction is advanced. Medications are appropriate for kidney dysfunction. Hold losartan pending additional monitoring. Urine studies suggestive of cystitis/UTI. Abdominal US did not demonstrate renal obstruction. Document strict I/O's. Repeat metabolic profile tomorrow AM. (2) Chronic kidney disease: Plan: CKD IV-V A3. CKD attributed to DKD and hypertension by history. Carol was evaluated by Dr. Hensley in the clinic in the past but has not maintained regular outpatient nephrology follow up. She told me that she would not pursue dialysis under any circumstances. (3) Nephrotic range proteinuria: (4) Acute on chronic heart failure with mildly reduced ejection fraction (HFmrEF, 41-49%): Plan: Plan of care discussed with cardiology again this AM. TTE: LVEF 40-45% with distal anterior/lateral hypokinesis; MR moderate to severe, TR moderate. I would suggest holding RAASi in the setting of ONEIL. Avoid SGLT2i in advanced kidney dysfunction and ONEIL. Diuretics to encourage negative fluid balance. (5) Anemia: Plan: Hgb 9.3. Tsat 18; ferritin 261. Dropped overnight. Monitor/recheck. Denies any signs of bleeding. Epogen 45128 units x 1 provided yesterday. Venofer 200 mg x 2 doses have been provided. 3rd dose provided this AM. (6) UTI (urinary tract infection): Plan: UA/microscopy consistent with cystitis. Thankfully, Carol denies significant symptoms. Day #3 Ceftriaxone. Culture +pansensitive E coli. (7) Hypertension: Plan: Hold losartan in the setting of ONEIL. Continue carvedilol, hydralazine, Imdur as Rx. Diuretics to encourage negative fluid balance. Hydralazine dose increased this AM. (8) Pleural effusion: Plan: Thoracentesis is being planned for today. Admission and Anticipated Discharge Date Admission Date: March 01, 2025 Subjective No acute events overnight. Carol feels well this morning. She is out of bed and ambulating in her hospital room. The only shortness of breath that she is experiencing is when she laying down. She denies any chest pains or palpitations. She reports excellent urine output in response to IV furosemide yesterday. Unfortunately, UOP is not being completely documented because Carol continues to flush her urine. Review of Systems Review of Systems: All systems reviewed & are unremarkable except as noted in HPI & below Physical Exam Constitutional: well developed; no acute distress Eyes: + anicteric sclerae; no conjunctival abn ormality ENMT: Mouth: no oral mucosal abnormality and oral mucous membranes not dry Neck: normal visual inspection and trachea midline Respiratory: normal respiratory effort Auscultation: lungs clear to auscultation bilaterally and + diminished lung sounds Cardiovascular: Rate/Rhythm: regular rate Heart Sounds: normal S1, normal S2 and + murmur Extremities: + edema Musculoskeletal: Extremities: no cyanosis and no clubbing Skin: + turgor decreased; no jaundice Neurologic: Motor/Sensory: no tremor and no asterixis Psychiatric: Orientation: alert and oriented x 3 Results & Data Vital Signs (Past 12 Hours) Vital Signs Temp Pulse Pulse Resp BP BP Pulse Ox 03/03/25 07:31 36.3 C L 68 16 168/84 H 96 03/03/25 07:25 67 03/03/25 03:52 36.5 C 68 18 145/75 H 95 03/03/25 00:58 36.5 C 70 18 135/70 96 03/02/25 23:58 62 O2 Del Method 03/03/25 07:31 Room Air 03/03/25 07:25 03/03/25 03:52 Room Air 03/03/25 00:58 Room Air 03/02/25 23:58 Laboratory Results Laboratory Results - last 24 hr 03/02/25 03/02/25 03/02/25 11:41 16:25 20:13 WBC RBC Hgb Hct MCV MCH MCHC RDW Std Deviation RDW Coeff of Abel Plt Count MPV Sodium Potassium Chloride Carbon Dioxide Anion Gap BUN Creatinine Est Cr Clr Drug Dosing eGFR BUN/Creatinine Ratio Glucose POC Glucose 169 H 141 H 108 H Calcium Magnesium Lactate Dehydrogenase Total Protein 03/03/25 03/03/25 05:47 07:31 WBC 4.74 L RBC 2.55 L Hgb 7.5 L Hct 22.5 L MCV 88.2 MCH 29.4 MCHC 33.3 RDW Std Deviation 46.5 H RDW Coeff of Abel 14.4 Plt Count 157 MPV 10.4 Sodium 138 Potassium 3.8 Chloride 106 Carbon Dioxide 22 Anion Gap 10 BUN 77 H Creatinine 3.96 H Est Cr Clr Drug Dosing 12.9 eGFR 11.84 BUN/Creatinine Ratio 19.4 Glucose 86 POC Glucose 98 Calcium 8.6 Magnesium 2.0 Lactate Dehydrogenase 186 Total Protein 5.6 L PG Care Time/CCT Total # of Minutes Spent Total Time Spent with Patient: Total time spent is greater than 50% in coordination of care (as documented) at patient's floor/unit and/or counseling patient: Coding Level of Care Code 31562 SUB INP/OBS CARE 3/50MIN Diagnoses Acute kidney injury superimposed on stage 4 chronic kidney disease N17.9; N18.4 Chronic kidney disease N18.9 Chronic kidney disease stage: unspecified stage Nephrotic range proteinuria R80.9 Acute on chronic heart failure with mildly reduced ejection fraction (HFmrEF, 41-49%) I50.23 Anemia D64.9 Anemia type: unspecified type UTI (urinary tract infection) N30.01 Hematuria presence: with hematuria Urinary tract infection type: acute cystitis Primary hypertension I10 Hypertension type: primary hypertension Pleural effusion J90 (2) Chronic kidney disease Chronic kidney disease stage: unspecified stage Qualified Code(s): N18.9 - Chronic kidney disease, unspecified (5) Anemia Anemia type: unspecified type Qualified Code(s): D64.9 - Anemia, unspecified (6) UTI (urinary tract infection) Hematuria presence: with hematuria Urinary tract infection type: acute cystitis Qualified Code(s): N30.01 - Acute cystitis with hematuria (7) Hypertension Hypertension type: primary hypertension Qualified Code(s): I10 - Essential (primary) hypertension
--- NOTE | 2025-03-03 09:39 | Cardiology Progress Note ---
Date of Service March 03, 2025 Assessment & Plan (1) Acute on chronic heart failure with mildly reduced ejection fraction (HFmrEF, 41-49%): (2) Pulmonary edema: (3) Pleural effusion: (4) Paroxysmal atrial fibrillation: (5) Mitral regurgitation: (6) Chronic kidney disease: Plan Mrs. Cavazos is a 69-year-old female with a history of Hypertension, Dyslipidemia, Paroxysmal Atrial Fibrillation, HFmrEF, Cardiomyopathy (LVEF 40% to 45%), Mitral Regurgitation, Tricuspid Regurgitation, Stroke, Type 2 Diabetes Mellitus, and CKD who presented yesterday with an Acute Exacerbation of HFmrEF, Hypervolemia, Whole Body Fluid Overload, and ONEIL. Patient offers no complaints today -- her breathing is much better but she still has some lower extremity edema. She will have a thoracentesis today for her right pleural effusion. She denies any chest pain, heaviness, tightness, pressure, or discomfort. She denies any palpitations, syncope, or near syncope. No fevers or chills. Patient states that her urine output was not completely documented. She does not feel that she made much urine. Weight is stable. CXR consistent with pulmonary edema, bilateral pleural effusions, and cardiomegaly. Echocardiogram shows reduced LV systolic function, LVEF is 40% to 45% with mid to distal anterior and anterolateral hypokinesis, [id number] mitral regurgitation, moderate left atrial enlargement, moderate tricuspid regurgitation, trace pericardial effusion, and RVSP is calculated at 68 mmHg. BNP is elevated at > 3000 pg/mL. Recommend the followin. Continue Coreg 12.5 mg b.i.d.. 2. Hold Losartan due to ONEIL. 3. Continue Imdur ER 60 mg daily. 4. Increase Hydralazine to 100 mg every 8 hours. 5. Oral Lasix 80 mg will be given today as per Dr. Bartholomew. 6. Strict low sodium diet. 7. Monitor daily body weights. 8. Monitor I&O's. 9. Continue Atorvastatin 40 mg daily. 10. Continue Aspirin 81 mg daily. 11. Proceed with thoracentesis as planned We will continue to follow this patient throughout her hospitalization and following discharge. Recommend follow-up in our Heart Failure Clinic. Admission and Anticipated Discharge Date Admission Date: March 01, 2025 Subjective Mrs. Cavazos offers no complaints today -- her breathing is much better but she still has some lower extremity edema. She will have a thoracentesis today for her right pleural effusion. Review of Systems Review of Systems: -- As per HPI. Physical Exam Physical Exam: Blood pressure 168/84, pulse 68 and regular, SpO2 96% on room air. GENERAL: Patient is in no distress. HEENT: Head is atraumatic, normocephalic. EOM's intact. Facies symmetric. No perioral cyanosis. NECK: JVD is noted. JVP remains elevated. Carotid upstrokes are + 2 bilaterally. CHEST/LUNGS: Absent breath sounds in the right base, left basilar crackles. CVS: S1 and S2 are regular without murmurs, gallops, or rubs. PMI is nondisplaced. No lifts, heaves, or thrills. No abdominal aortic or renal bruits. ABDOMINAL EXAM: Bowel sounds are present. Abdomen appears to be less distended. EXTREMITIES: No clubbing or cyanosis. +1 pretibial edema. Extremities are well perfused. NEUROLOGIC EXAM: Patient is awake, alert, and oriented. Pleasant and cooperative. Answers questions appropriately. Speech is clear. MANAGER TRAINING: -- Sinus rhythm in the 60's and 70's bpm range. Results & Data Vital Signs (Past 12 Hours) Vital Signs Temp Pulse Pulse Resp BP BP Pulse Ox 03/03/25 07:31 36.3 C L 68 16 168/84 H 96 03/03/25 07:25 67 03/03/25 03:52 36.5 C 68 18 145/75 H 95 03/03/25 00:58 36.5 C 70 18 135/70 96 03/02/25 23:58 62 O2 Del Method 03/03/25 07:31 Room Air 03/03/25 07:25 03/03/25 03:52 Room Air 03/03/25 00:58 Room Air 03/02/25 23:58 Laboratory Results Laboratory Results - last 24 hr 03/02/25 03/02/25 03/02/25 11:41 16:25 20:13 WBC RBC Hgb Hct MCV MCH MCHC RDW Std Deviation RDW Coeff of Abel Plt Count MPV Sodium Potassium Chloride Carbon Dioxide Anion Gap BUN Creatinine Est Cr Clr Drug Dosing eGFR BUN/Creatinine Ratio Glucose POC Glucose 169 H 141 H 108 H Calcium Magnesium Lactate Dehydrogenase Total Protein 03/03/25 03/03/25 05:47 07:31 WBC 4.74 L RBC 2.55 L Hgb 7.5 L Hct 22.5 L MCV 88.2 MCH 29.4 MCHC 33.3 RDW Std Deviation 46.5 H RDW Coeff of Abel 14.4 Plt Count 157 MPV 10.4 Sodium 138 Potassium 3.8 Chloride 106 Carbon Dioxide 22 Anion Gap 10 BUN 77 H Creatinine 3.96 H Est Cr Clr Drug Dosing 12.9 eGFR 11.84 BUN/Creatinine Ratio 19.4 Glucose 86 POC Glucose 98 Calcium 8.6 Magnesium 2.0 Lactate Dehydrogenase 186 Total Protein 5.6 L Medications Administered Medication List Acetaminophen (Acetaminophen 325 Mg Tab) 650 mg PO Q4H PRN PRN Reason: Pain or Fever Stop: 03/31/25 14:29 Last Admin: 03/01/25 20:12 Dose: 650 mg Documented By: KELLIE Aspirin (Aspirin 81 Mg Ectab) [facility] [place] Stop: 04/01/25 08:59 Last Admin: 03/03/25 08:47 Dose: 81 mg Documented By: Admin: 03/02/25 08:19 Dose: 81 mg Documented By: GUS Atorvastatin Calcium (Atorvastatin 40 Mg Tab) 40 mg PO QPM [facility] Stop: 03/31/25 20:59 Last Admin: 03/02/25 20:29 Dose: 40 mg Documented By: [facility] Admin: 03/01/25 20:12 Dose: 40 mg Documented By: KELLIE Carvedilol (Carvedilol 12.5 Mg Tab) 12.5 mg PO BIDM [facility] Stop: 03/31/25 16:59 Last Admin: 03/03/25 08:47 Dose: 12.5 mg Documented By: Admin: 03/02/25 16:21 Dose: 12.5 mg Documented By: Admin: 03/02/25 08:18 Dose: 12.5 mg Documented By: Admin: 03/01/25 16:40 Dose: 12.5 mg Documented By: VANESSA Hydralazine HCl (Hydralazine Tab 50 Mg Tab) 50 mg PO Q8H [facility] Stop: 03/31/25 15:29 Last Admin: 03/03/25 08:47 Dose: 50 mg Documented By: Admin: 03/02/25 23:44 Dose: 50 mg Documented By: [facility] Admin: 03/02/25 15:31 Dose: 50 mg Documented By: Admin: 03/02/25 08:17 Dose: 50 mg Documented By: Admin: 03/01/25 23:08 Dose: 50 mg Documented By: Admin: 03/01/25 15:49 Dose: 50 mg Documented By: VANESSA Ceftriaxone Sodium (Rocephin) 1,000 mg in 50 mls @ 100 mls/hr IV Q24H SUMAYA Stop: 03/09/25 08:59 Last Infusion: 03/03/25 09:18 Dose: Infused Documented By: Admin: 03/03/25 08:48 Dose: 100 mls/hr Documented By: Infusion: 03/02/25 08:48 Dose: Infused Documented By: Admin: 03/02/25 08:18 Dose: 100 mls/hr Documented By: GUS Insulin Aspart (Insulin Aspart Per Unit Charge) 0 units SC ACHS SUMAYA Stop: 03/31/25 16:29 Last Admin: 03/03/25 08:59 Dose: 1 units Documented By: GUS Co-signed By: SANJUANA Admin: 03/02/25 20:30 Dose: Not Given Documented By: [facility] Admin: 03/02/25 16:47 Dose: 2 units Documented By: VANESSA Co-signed By: GUS Admin: 03/02/25 12:13 Dose: 2 units Documented By: GUS Co-signed By: VENKAT Admin: 03/02/25 08:19 Dose: 2 units Documented By: GUS Co-signed By: ALICIA Admin: 03/01/25 20:07 Dose: Not Given Documented By: Admin: 03/01/25 16:38 Dose: 3 units Documented By: VANESSA Co-signed By: BEBE Insulin Glargine (Lantus Per Unit Charge) 5 units SQ QAM SUMAYA Stop: 04/01/25 08:59 Last Admin: 03/03/25 08:59 Dose: 5 units Documented By: GUS Co-signed By: SANJUANA Admin: 03/02/25 08:19 Dose: 5 units Documented By: GUS Co-signed By: SUZANNE Isosorbide Mononitrate (Isosorbide [place] Extended Rel 60 Mg Tabcr) 60 mg PO QAM SUMAYA Stop: 03/31/25 14:44 Last Admin: 03/03/25 08:47 Dose: 60 mg Documented By: Admin: 03/02/25 08:19 Dose: 60 mg Documented By: Admin: 03/01/25 15:26 Dose: 60 mg Documented By: VANESSA Ketorolac Tromethamine (Ketorolac 0.5% Op Soln 5 Ml Btl) 1 drops OPB QID SUMAYA Stop: 03/31/25 16:59 Last Admin: 03/03/25 08:48 Dose: 1 drops Documented By: Admin: 03/02/25 20:30 Dose: 1 drops Documented By: Admin: 03/02/25 16:21 Dose: 1 drops Documented By: Admin: 03/02/25 13:44 Dose: 1 drops Documented By: Admin: 03/02/25 08:18 Dose: 1 drops Documented By: Admin: 03/01/25 20:13 Dose: 1 drops Documented By: Admin: 03/01/25 15:27 Dose: 1 drops Documented By: VANESSA Melatonin (Melatonin 3 Mg Tab) 3 mg PO HS PRN PRN Reason: Sleep Stop: 03/31/25 14:29 Last Admin: 03/01/25 20:12 Dose: 3 mg Documented By: KELLIE Prednisolone Acetate (Prednisolone Acetate 1% Op Susp 5 Ml Btl) 1 drops OPB TID SUMAYA Stop: 03/31/25 14:44 Last Admin: 03/03/25 08:48 Dose: 1 drops Documented By: Admin: 03/02/25 20:30 Dose: 1 drops Documented By: [facility] Admin: 03/02/25 13:44 Dose: 1 drops Documented By: Admin: 03/02/25 08:18 Dose: 1 drops Documented By: Admin: 03/01/25 20:12 Dose: 1 drops Documented By: Admin: 03/01/25 15:26 Dose: 1 drops Documented By: VANESSA Sertraline HCl (Sertraline Hcl 50 Mg Tablet) 50 mg PO QAM SUMAYA Stop: 04/01/25 08:59 Last Admin: 03/03/25 08:48 Dose: 50 mg Documented By: Admin: 03/02/25 08:19 Dose: 50 mg Documented By: GUS Discontinued Medications Epoetin Edison (Epoetin Edison 10,000 Units/Ml Vial) 10,000 units SQ ONE ONE Stop: 03/02/25 09:32 Last Admin: 03/02/25 10:10 Dose: 10,000 units Documented By: GUS Furosemide (Furosemide 40 Mg/4 Ml Vial) 80 mg IV ONE ONE Stop: 03/02/25 09:34 Last Admin: 03/02/25 10:10 Dose: 80 mg Documented By: UGS Ceftriaxone Sodium (Rocephin) 2,000 mg in 50 mls @ 100 mls/hr IV NOW STA Stop: 03/01/25 10:03 Last Infusion: 03/01/25 10:31 Dose: Infused Documented By: Admin: 03/01/25 09:55 Dose: 100 mls/hr Documented By: DORA Iron Sucrose 200 mg/ Sodium (Chloride) 110 mls @ 220 mls/hr IV TODAY ONE Stop: 03/01/25 14:15 Last Infusion: 03/01/25 15:50 Dose: Infused Documented By: Admin: 03/01/25 15:12 Dose: 220 mls/hr Documented By: VANESSA Iron Sucrose 200 mg/ Sodium (Chloride) 110 mls @ 220 mls/hr IV TODAY ONE Stop: 03/02/25 10:00 Last Infusion: 03/02/25 10:42 Dose: Infused Documented By: Admin: 03/02/25 10:12 Dose: 220 mls/hr Documented By: GUS PG Care Time/CCT Total # of Minutes Spent Total Time Spent with Patient: Total time spent is greater than 50% in coordination of care (as documented) at patient's floor/unit and/or counseling patient:28 C[place] [address] SUB INP/OBS CARE 3/50MIN Patient Type Established History Detailed Exam Detailed Medical Decision Making High Complexity Diagnoses Acute on chronic heart failure with mildly reduced ejection fraction (HFmrEF, 41-49%) I50.23 Acute pulmonary edema J81.0 Chronicity: acute Pleural effusion J90 Paroxysmal atrial fibrillation I48.0 Nonrheumatic mitral valve regurgitation I34.0 Cardiac valve disease etiology: nonrheumatic Chronic kidney disease N18.9 Chronic kidney disease stage: unspecified stage Time Spent (min) 55 (2) Pulmonary edema Chronicity: acute Qualified Code(s): J81.0 - Acute pulmonary edema (5) Mitral regurgitation Cardiac valve disease etiology: nonrheumatic Qualified Code(s): I34.0 - Nonrheumatic mitral (valve) insufficiency (6) Chronic kidney disease Chronic kidney disease stage: unspecified stage Qualified Code(s): N18.9 - Chronic kidney disease, unspecified
[2025-03-03] MEDS: IRON SUCROSE 200 MG in SODIUM CHLORIDE 0.9% 100 ML IV ONE (10:29)
[2025-03-03] MEDS: FUROSEMIDE 80 MG TAB PO SCH (10:29)
--- NOTE | 2025-03-03 16:39 | Hospitalist Progress Note ---
Date of Service March 03, 2025 Assessment & Plan (1) Acute on chronic heart failure with mildly reduced ejection fraction (HFmrEF, 41-49%): (2) Acute kidney injury superimposed on stage 4 chronic kidney disease: (3) Diabetes type 2, controlled: (4) Atrial fibrillation: Plan 69-year-old with heart failure with midrange range ejection fraction, atrial fibrillation, CKD stage IV as well as type 2 diabetes on insulin who was admitted with acute on chronic heart failure and ONEIL # acute on chronic heart failure - total body fluid overloaded # bilateral right greater than left pleural effusions. Probably related to cardiorenal failure # suspect ascites, though labs do not indicate decompensated cirrhosis. Probably related to cardiorenal failure # atrial fibrillation echo reviewedEF 40-45% there is been some increase in her MR now moderate to severe, moderate TR -BNP was severely elevated at 3000 - cautiously diuresing 80 mg IV lasix yesterday changed to 80 mg po daily -continue imdur, carvedilol, hydralazine increased to 100 mg tid -daily AM BMP -reviewed recs in cardiology note ONEIL on CKD stage IV - non-oluguric. thought to have chronic kidney disease related to diabetes and hypertension, had 3g proteinuria on previous nephrology evaluation ONEIL with ATN potentially cardiorenal failure, could also be progression of CKD - Dr. Bartholomew discussed with her and she does not want to be on dialysis - reviewed recommendations in verse writer note / - hold ARB, avoid nephrotoxins - monitor UOP and BMP, Mag, phos - labs more or less stable today, Cr slightly up to 3.9 and potassium 3.8 # E. coli UTIpan sensitive - treated with ceftriaxone, change to keflex po # R>>L pleural effusions / poss ascites - right-sided thoracentesis - discussed with IR provider - needs 72h of apixaban hold so planning thora for Thursday # DM type 2 - recent A1c at goal - continue long acting and premeal/correctional short acting insulin - ordered very conservative dosing because of poor renal function and lots of her body weight is water - blood glucose at goal today # Anemia - longstanding, past notes mention hypoproliferative and referred to hematology - unclear whether ever seen. Would expect anemia related to CKD at this point - iron studies and B12 are adequate - MELVI given per nephrology - Hg stable at 7.5, no evidence of bleeding # recent cataract surgery - confirmed and ordered her eye drops PT/OT eval DVT ppx - apixaban held, restart after thoracentesis. meanwhile SQ heparin tid Admission and Anticipated Discharge Date Admission Date: March 01, 2025 Subjective Definitely feels better, no RAMIREZ or at rest, had mild episode of orthopnea Leg edema similar today No further chest/abdominal pressure since diuresis I/O not recorded accurately, weight same Physical Exam 2 Physical Exam: PHYSICAL EXAMINATION Last 24h vital signs reviewed, see documentation in flowsheet General: much better, sitting up in chair HEENT: Normocephalic, atraumatic, pupils round and equal, sclerae anicteric, no conjunctival injection, moist mucus membranes Lungs: Normal respiratory effort. Dull to percussion at least mcc up on the right and one quarter way up on the left, left basilar crackles less, no wheezing - unchanged today Heart: Regular rate and rhythm, no murmurs. JVD present Abdomen: Soft, nontender, ND. Bowel sounds present. Extremities: Warm, dry, well-perfused. 1-2+ bilateral lower extremity edema to knees less pitting Neuro: Alert and oriented x hospital and situation, face symmetric, moves 4 extremities well Psych: Normal affect and behavior Results & Data Results & Data Vital Signs (Past 12 Hours) Vital Signs Temp Pulse Pulse Resp BP BP Pulse Ox 03/03/25 15:23 36.4 C L 68 16 152/80 H 100 03/03/25 10:40 36.5 C 64 16 128/67 95 03/03/25 07:31 36.3 C L 68 16 168/84 H 96 03/03/25 07:25 67 O2 Del Method 03/03/25 15:23 Room Air 03/03/25 10:40 Room Air 03/03/25 07:31 Room Air 03/03/25 07:25 Laboratory Results 03/03/25 05:47 03/03/25 05:47 PG Care Time/CCT Total # of Minutes Spent Total Time Spent with Patient: Total time spent is greater than 50% in coordination of care (as documented) at patient's floor/unit and/or counseling patient: Coding Level of Care Code 97764 SUB INP/OBS CARE 3/50MIN Diagnoses Acute on chronic heart failure with mildly reduced ejection fraction (HFmrEF, 41-49%) I50.23 Acute kidney injury superimposed on stage 4 chronic kidney disease N17.9; N18.4 Diabetes type 2, controlled E11.9 Atrial fibrillation I48.91
[2025-03-03] MEDS: hydrALAZINE TAB 50 MG TAB PO SCH (17:25)
[2025-03-03] MEDS: HEPARIN SOD 5,000 UNIT/0.5 ML VIAL SQ SCH (21:13)
[2025-03-04 07:04] LABS: BUN Creatinine Ratio 18.4 (10-20); Calcium 8.3 mg/dl (8.6-10.3); Creatinine Clr Calc Pharmacy 11.5 ml/min; Potassium 4.1 mmol/L (3.5-5.1)
[2025-03-04] MEDS: cephALEXin 500 MG CAP PO SCH (08:56)
--- NOTE | 2025-03-04 09:17 | Nephrology Progress Note ---
Date of Service March 04, 2025 Assessment & Plan (1) Acute kidney injury superimposed on stage 4 chronic kidney disease: Plan: * ONEIL/CKD due to cardiorenal syndrome. Renal ultrasound was negative for obstruction. Urinalysis positive for protein. UIEP negative for monoclonal band. CKD is on the basis of diabetic nephropathy * Patient has documented advanced CKD. Initially she was evaluated by Dr. Bartholomew 09/24 but did not maintain follow-up. She was assessed in my office 03/25 but indicated that she was aware of her advanced CKD and did not desire further medical testing, renal ultrasound, additional medications or routine follow up evaluation. She desired only to "get off all medications" and "live a natural life". Follow up w/ PCP was advised. * Cr has risen from baseline 2.5 to 4.45 today with EGFR 10 cc/minute. I met with Mrs. Cavazos and her this morning. We discussed her clinical course and progressive renal dysfunction. I explained that she has significant underlying CKD (diabetic nephropathy) that has worsened due to her progressive mitral valve regurgitation. We discussed several medical options including (1) consultation with cardiology to determine whether mitral clip would be of benefit, (2) initiation of hemodialysis for volume and electrolyte management, (3) continue with conservative medical care and transition to palliative care if condition further worsens. Mrs. Cavazos indicated that she would like to speak with cardiology about possible mitral valve clip. She understands that this is not a permanent solution but would allow for possibly additional 2-3 years of functional living. We discussed the indications/b enefits/risks/alternatives to hemodialysis in detail. Mrs. Cavazos unequivocally indicated that she does not wish to be dependent upon her machine in order to survive. Hemodialysis is not consistent with her goals of care. Her was in agreement with the statements. Finally Mrs. Cavazos did state that she would like to continue with conservative medical therapy and meet with palliative care. She requests that if her condition worsens that she transition to comfort measures/hospice care and be allowed to a natural . I indicated to Mrs. Cavazos that I would place a consultation re quest to palliative care to see her on Thursday. * Following my visit today hospitalist service contacted me indicating that Mrs. Cavazos has developed bilateral tinnitus possibly related to her loop diuretic therapy. I have advised that furosemide be held and symptoms monitored. Also check for other causes of tinnitus such as eustachian tube dysfunction or cerumen impaction. If symptoms have improved tomorrow furosemide could again be attempted with a split twice daily dosing schedule or attempt a trial with a thiazide diuretic. * Monitor BMP, I/O's and daily weights (2) Chronic kidney disease: Plan: * CKD stage G4/A3 (advanced impairment). Baseline Cr 2.5. Urinalysis positive for protein. Nonnephritic urine sediment. UPCR 4.9. 12/24 UIEP - normal pattern. CKD likely due to DKD, hypertensive nephrosclerosis (3) Acute on chronic heart failure with mildly reduced ejection fraction (HFmrEF, 41-49%): Plan: * TTE: LVEF 40-45% with distal anterior/lateral hypokinesis; MR moderate to severe, TR moderate. * Continue to hold ALIDA/ARB, SGLT2i due to advanced CKD * Diuretic therapy as outlined above * Recommend discussion w/ cardiology as to whether patient is a candidate for MV clip (4) Anemia: Plan: * Hgb 7.5 * Will order iron studies w/ am lab (5) UTI (urinary tract infection): Plan: * E. Coli cystitis treated w/ IV ceftriaxone (6) Hypertension: Plan: Hold losartan in the setting of ONEIL. Continue carvedilol, hydralazine, Imdur as Rx. Diuretics to encourage negative fluid balance. Hydralazine dose increased this AM. (7) Pleural effusion: Plan: Thoracentesis is being planned for today. Admission and Anticipated Discharge Date Admission Date: March 01, 2025 Subjective Mrs. Cavazos was evaluated in her hospital room this morning. Her was present at bedside. She reports that she is awaiting thoracentesis. She believes that this will be carried out Thursday morning. Mrs. Cavazos currently denies fever, angina, worsening dyspnea or uremic symptoms. Review of Systems Constitutional: no fever Eyes: no problem reported Ear, Nose, Mouth, Throat: no problem reported Respiratory: + dyspnea on exertion; no cough Cardiovascular: no chest pain Gastrointestinal: no abdominal pain, no nausea, no vomiting and no diarrhea/loose stools Genitourinary: no dysuria and no hematuria Integumentary: no rash Neurologic: no problem reported Physical Exam Constitutional: not in distress Eyes: PERRL, conjunctivae normal, anicteric sclerae ENMT: external ear and nose normal, oropharynx normal Neck: trachea midline, no thyromegaly Respiratory: Auscultation: + diminished lung sounds (at bases bilaterally) Cardiovascular: RRR, no murmur, no edema Gastrointestinal (Abdomen): Inspection/Auscultation: + abdomen distended Percussion/Palpation: abdomen nontender Musculoskeletal: Extremities: no cyanosis and no clubbing Skin: no rashes, warm and dry Neurologic: awake; not confused Results & Data Vital Signs (Past 12 Hours) Vital Signs Temp Pulse Pulse Resp BP Pulse Ox O2 Del Method 03/04/25 08:00 66 03/04/25 06:56 36.8 C 67 18 160/82 H 98 Room Air 03/04/25 03:23 36.7 C 68 18 143/69 H 97 Nasal Cannula 03/03/25 23:47 36.8 C 68 18 156/80 H 96 Room Air 03/03/25 22:11 70 O2 Flow Rate 03/04/25 08:00 03/04/25 06:56 03/04/25 03:23 1 03/03/25 23:47 03/03/25 22:11 Laboratory Results Laboratory Results - last 24 hr 03/03/25 03/03/25 03/03/25 11:27 16:26 20:35 Sodium Potassium Chloride Carbon Dioxide Anion Gap BUN Creatinine Est Cr Clr Drug Dosing eGFR BUN/Creatinine Ratio Glucose POC Glucose 172 H 181 H 163 H Calcium Magnesium 03/04/25 03/04/25 05:56 07:10 Sodium 138 Potassium 4.1 Chloride 105 Carbon Dioxide 24 Anion Gap 9 BUN 82 H Creatinine 4.45 H D Est Cr Clr Drug Dosing 11.5 eGFR 10.29 BUN/Creatinine Ratio 18.4 Glucose 144 H POC Glucose 160 H Calcium 8.3 L Magnesium 2.0 PG Care Time/CCT Total # of Minutes Spent Total Time Spent with Patient: Total time spent is greater than 50% in coordination of care (as documented) at patient's floor/unit and/or counseling patient: Coding Level of Care Code 42318 SUB INP/OBS CARE 3/50MIN Diagnoses Acute kidney injury superimposed on stage 4 chronic kidney disease N17.9; N18.4 Chronic kidney disease N18.9 Chronic kidney disease stage: unspecified stage Acute on chronic heart failure with mildly reduced ejection fraction (HFmrEF, 41-49%) I50.23 Anemia D64.9 Anemia type: unspecified type UTI (urinary tract infection) N30.01 Hematuria presence: with hematuria Urinary tract infection type: acute cystitis Primary hypertension I10 Hypertension type: primary hypertension Pleural effusion J90 (2) Chronic kidney disease Chronic kidney disease stage: unspecified stage Qualified Code(s): N18.9 - Chronic kidney disease, unspecified (4) Anemia Anemia type: unspecified type Qualified Code(s): D64.9 - Anemia, unspecified (5) UTI (urinary tract infection) Hematuria presence: with hematuria Urinary tract infection type: acute cystitis Qualified Code(s): N30.01 - Acute cystitis with hematuria (6) Hypertension Hypertension type: primary hypertension Qualified Code(s): I10 - Essential (primary) hypertension
--- NOTE | 2025-03-04 09:41 | Cardiology Progress Note ---
Date of Service March 04, 2025 Assessment & Plan Admission and Anticipated Discharge Date Admission Date: March 01, 2025 Results & Data Vital Signs (Past 12 Hours) Vital Signs Temp Pulse Pulse Resp BP Pulse Ox O2 Del Method 03/04/25 08:00 66 03/04/25 06:56 36.8 C 67 18 160/82 H 98 Room Air 03/04/25 03:23 36.7 C 68 18 143/69 H 97 Nasal Cannula 03/03/25 23:47 36.8 C 68 18 156/80 H 96 Room Air 03/03/25 22:11 70 O2 Flow Rate 03/04/25 08:00 03/04/25 06:56 03/04/25 03:23 1 03/03/25 23:47 03/03/25 22:11 Laboratory Results Abnormal lab results 03/03/25 03/03/25 03/03/25 Range/Units 11:27 16:26 20:35 BUN (6-23) mg/dl Creatinine (0.6-1.2) mg/dl Glucose (70-99(Fasting)) mg/dl POC Glucose 172 H 181 H 163 H (70-99) mg/dl Calcium (8.6-10.3) mg/dl 03/04/25 03/04/25 Range/Units 05:56 07:10 BUN 82 H (6-23) mg/dl Creatinine 4.45 H D (0.6-1.2) mg/dl Glucose 144 H (70-99(Fasting)) mg/dl POC Glucose 160 H (70-99) mg/dl Calcium 8.3 L (8.6-10.3) mg/dl
--- NOTE | 2025-03-04 13:37 | Hospitalist Progress Note ---
Date of Service March 04, 2025 Assessment & Plan (1) Acute on chronic heart failure with mildly reduced ejection fraction (HFmrEF, 41-49%): (2) Acute kidney injury superimposed on stage 4 chronic kidney disease: (3) Diabetes type 2, controlled: (4) Atrial fibrillation: Plan 69-year-old with heart failure with midrange range ejection fraction, atrial fibrillation, CKD stage IV as well as type 2 diabetes on insulin who was admitted with acute on chronic heart failure and ONEIL # acute on chronic heart failure - total body fluid overloaded # bilateral right greater than left pleural effusions. Probably related to cardiorenal failure # suspect ascites, though labs do not indicate decompensated cirrhosis. Probably related to cardiorenal failure # atrial fibrillation echo reviewedEF 40-45% there is been some increase in her MR now moderate to severe, moderate TR -BNP was severely elevated at 3000 - Has responded to diuresis with 80 mg of IV/p.o. Lasix -continue imdur, carvedilol, hydralazine increased to 100 mg tid # new onset bilateral tinnitus without hearing loss I discussed with Dr. Hensley regarding the loop diuretic it would be extremely unusual for an oral dose to cause ototoxicity. Held for now monitor clinical course consider other causes such as cerumen impaction or eustachian tube dysfunction. Ordered empiric course of Debrox eardrops and Afrin ONEIL on CKD stage IV - non-oluguric. thought to have chronic kidney disease related to diabetes and hypertension, had 3g proteinuria on previous nephrology evaluation ONEIL with ATN potentially cardiorenal failure, could also be progression of CKD - she does not want to be on dialysis - reviewed recommendations in manager of data note 5/[address] Hensley - hold ARB, avoid nephrotoxins - monitor UOP and BMP, Mag, phos - creatinine creeping up to 4.45, electrolytes are acceptable # E. coli UTIpan sensitive - treated with ceftriaxone, changed to keflex po, end after 5/6 AM dose # R>>L pleural effusions / poss ascites - chest and abdominal tightness has resolved with diuresis - at this time she does not want to proceed with thoracentesis since she feels much better with respect to her breathing, canceled thoracentesis # DM type 2 - recent A1c at goal - continue long acting and premeal/correctional short acting insulin - ordered very conservative dosing because of poor renal function and lots of her body weight is water - blood glucose is trending up a bit but still at goal on balance # Anemia - longstanding, past notes mention hypoproliferative and referred to hematology - unclear whether ever seen. Would expect anemia related to CKD at this point - iron studies and B12 are adequate - MELVI and Venofer given per nephrology - Hg stable at 7.5, no evidence of bleeding # recent cataract surgery - confirmed and ordered her eye drops PT/OT eval DVT ppx - apixaban held for potential thoracentesis. meanwhile SQ heparin tid Admission and Anticipated Discharge Date Admission Date: March 01, 2025 Subjective Breathing is a lot better than previously. leg edema much improved.wishes to go home soon. wants to hold off on thoracentesis developed bilateral tinnitus without hearing loss, no vertigo, no ear pain Physical Exam 2 Physical Exam: PHYSICAL EXAMINATION Last 24h vital signs reviewed, see documentation in flowsheet General: sitting up on bed huge family is visiting HEENT: Normocephalic, atraumatic, pupils round and equal, sclerae anicteric, no conjunctival injection, moist mucus membranes Lungs: Normal respiratory effort. breath sounds absent right base, left base crackles improved, no wheezing Heart: Regular rate and rhythm, no murmurs. Abdomen: Soft, nontender, ND. Bowel sounds present. Extremities: Warm, dry, well-perfused. leg edema much improved now mild Neuro: Alert and oriented x hospital and situation, face symmetric, moves 4 extremities well Psych: Normal affect and behavior Results & Data Results & Data Vital Signs (Past 12 Hours) Vital Signs Temp Pulse Pulse Resp BP Pulse Ox O2 Del Method 03/04/25 11:22 36.4 C L 63 164/84 H 97 Room Air 03/04/25 08:00 66 03/04/25 06:56 36.8 C 67 18 160/82 H 98 Room Air 03/04/25 03:23 36.7 C 68 18 143/69 H 97 Nasal Cannula O2 Flow Rate 03/04/25 11:22 03/04/25 08:00 03/04/25 06:56 03/04/25 03:23 1 Laboratory Results 03/03/25 05:47 03/04/25 05:56 PG Care Time/CCT Total # of Minutes Spent Total Time Spent with Patient: Total time spent is greater than 50% in coordination of care (as documented) at patient's floor/unit and/or counseling patient: Coding Level of Care Code 39366 SUB INP/OBS CARE 2MIN Diagnoses Acute on chronic heart failure with mildly reduced ejection fraction (HFmrEF, 41-49%) I50.23 Acute kidney injury superimposed on stage 4 chronic kidney disease N17.9; N18.4 Diabetes type 2, controlled E11.9 Atrial fibrillation I48.91
[2025-03-04] MEDS: CARBAMIDE PEROXIDE 6.5% 15 ML BTL OTB SCH (14:25)
[2025-03-04] MEDS: OXYMETAZOLINE 0.05% 30 ML BTL SCH (14:25)
[2025-03-05 06:57] LABS: Hematocrit (blood only) 22.1 % (37.0-47.0); Hemoglobin 7.4 g/dl (12.0-16.0); Mean Corpuscular Hemoglobin 30.1 pg (25.0-34.0); Mean Corpuscular Hgb Conc 33.5 g/dL (32.0-36.0); Mean Corpuscular Volume 89.8 fL (80.0-100.0); Mean Platelet Volume 10.4 fL (9.4-12.4); Platelet Count 165 K/uL (130-400); RDW Coefficient of Variation 14.5 % (11.5-14.5); RDW Standard Deviation 46.3 fL (36.4-46.3); Red Blood Count 2.46 M/uL (4.20-5.40); White Blood Count 4.45 K/ul (4.8-10.8)
[2025-03-05 07:24] LABS: BUN Creatinine Ratio 19.8 (10-20); Calcium 8.2 mg/dl (8.6-10.3); Creatinine Clr Calc Pharmacy 11.6 ml/min; Potassium 3.9 mmol/L (3.5-5.1)
[2025-03-05] MEDS: ONDANSETRON INJ 2 MG/ML 2 ML VIAL IV PRN (08:30)
--- NOTE | 2025-03-05 09:10 | Nephrology Progress Note ---
Date of Service March 05, 2025 Assessment & Plan (1) Acute kidney injury superimposed on stage 4 chronic kidney disease: Plan: * ONEIL/CKD due to cardiorenal syndrome. Renal ultrasound was negative for obstruction. Urinalysis positive for protein. UIEP negative for monoclonal band. CKD is on the basis of diabetic nephropathy * Patient has documented advanced CKD. Initially she was evaluated by Dr. Bartholomew 09/24 but did not maintain follow-up. She was assessed in my office 03/25 but indicated that she was aware of her advanced CKD and did not desire further medical testing, renal ultrasound, additional medications or routine follow up evaluation. She desired only to "get off all medications" and "live a natural life". Follow up w/ PCP was advised. * Cr is stable at 4.0 this morning. I met with Mrs. Cavazos and her this morning. She reports increasing abdominal distention. Mrs. Cavazos indicates that while she is anxious to return home, she would like VIR evaluation for thoracentesis +/- paracentesis, discussion w/ cardiology re: MVR repair and establish relationship w/ palliative care before leaving. Tinnitus is moderately improved off loop diuretic therapy this morning * Continue to hold furosemide. Monitor for resolution of tinnitus. Once resolved, consider restarting furosemide at 20 mg BID-TID dosing to limit peak serum level * Monitor BMP, I/O's and daily weights (2) Chronic kidney disease: Plan: * CKD stage G4/A3 (advanced impairment). Baseline Cr 2.5. Urinalysis positive for protein. Nonnephritic urine sediment. UPCR 4.9. 10/25 UIEP - normal pattern. CKD likely due to DKD, hypertensive nephrosclerosis (3) Acute on chronic heart failure with mildly reduced ejection fraction (HFmrEF, 41-49%): Plan: * TTE: LVEF 40-45% with distal anterior/lateral hypokinesis; MR moderate to severe, TR moderate. * Continue to hold ALIDA/ARB, SGLT2i due to advanced CKD * Diuretic therapy as outlined above * Recommend discussion w/ cardiology as to whether patient is a candidate for MV clip (4) Anemia: Plan: * Hgb 7.4 * 03/05/25 iron sat 13%, ferritin 289 * Will start venofer 200 mg IV daily x 3 doses (5) UTI (urinary tract infection): Plan: * E. Coli cystitis - resolved (6) Hypertension: Plan: Hold losartan in the setting of ONEIL. Continue carvedilol, hydralazine, Imdur as Rx. Diuretics to encourage negative fluid balance. Hydralazine dose increased this AM. (7) Pleural effusion: Plan: Thoracentesis is being planned for today. Admission and Anticipated Discharge Date Admission Date: March 01, 2025 Subjective Mrs. Cavazos was evaluated in her hospital room this morning. Her was present at bedside. She reports increasing abdominal distention. Mrs. Cavazos indicates that while she is anxious to return home, she would like VIR evaluation for thoracentesis +/- paracentesis, discussion w/ cardiology re: MVR repair and establish relationship w/ palliative care before leaving. Tinnitus is moderately improved this morning Review of Systems Constitutional: no fever Eyes: no problem reported Ear, Nose, Mouth, Throat: no problem reported Respiratory: + dyspnea on exertion; no cough Cardiovascular: no chest pain Gastrointestinal: no abdominal pain, no nausea, no vomiting and no diarrhea/loose stools Genitourinary: no dysuria and no hematuria Integumentary: no rash Neurologic: no problem reported Physical Exam Constitutional: not in distress Eyes: PERRL, conjunctivae normal, anicteric sclerae ENMT: external ear and nose normal, oropharynx normal Ears: + unable to visualize TM (R EAC occluded w/ cerumen, L EAC patent and TM clear) Neck: trachea midline, no thyromegaly Respiratory: Auscultation: + diminished lung sounds (at bases bilaterally) Cardiovascular: RRR, no murmur, no edema Gastrointestinal (Abdomen): Inspection/Auscultation: + abdomen distended Percussion/Palpation: abdomen nontender Musculoskeletal: Extremities: no cyanosis and no clubbing Skin: no rashes, warm and dry Neurologic: awake; not confused Results & Data Vital Signs (Past 12 Hours) Vital Signs Temp Pulse Pulse Resp BP BP Pulse Ox 03/05/25 07:32 36.5 C 65 16 165/83 H 97 03/05/25 02:41 36.7 C 64 18 158/76 H 95 03/04/25 22:56 36.5 C 62 18 148/81 H 96 03/04/25 21:38 62 O2 Del Method 03/05/25 07:32 Room Air 03/05/25 02:41 Room Air 03/04/25 22:56 Room Air 03/04/25 21:38 Laboratory Results Abnormal Lab Results 03/04/25 03/04/25 03/04/25 11:09 16:10 20:20 WBC RBC Hgb Hct MCV MCH MCHC RDW Std Deviation RDW Coeff of Abel Plt Count MPV Sodium Potassium Chloride Carbon Dioxide Anion Gap BUN Creatinine Est Cr Clr Drug Dosing eGFR BUN/Creatinine Ratio Glucose POC Glucose 270 H 106 H 192 H Calcium Magnesium Iron TIBC Transferrin Transferrin % Sat Ferritin 03/05/25 03/05/25 06:13 07:31 WBC 4.45 L RBC 2.46 L Hgb 7.4 L Hct 22.1 L MCV 89.8 MCH 30.1 MCHC 33.5 RDW Std Deviation 46.3 RDW Coeff of Abel 14.5 Plt Count 165 MPV 10.4 Sodium 139 Potassium 3.9 Chloride 107 Carbon Dioxide 23 Anion Gap 9 BUN 87 H Creatinine 4.40 H Est Cr Clr Drug Dosing 11.6 eGFR 10.43 BUN/Creatinine Ratio 19.8 Glucose 149 H POC Glucose 160 H Calcium 8.2 L Magnesium 2.0 Iron 42 TIBC 330 Transferrin 236 Transferrin % Sat 13 L Ferritin 289.0 Laboratory Results - last 24 hr 03/04/25 03/04/25 03/04/25 11:09 16:10 20:20 WBC RBC Hgb Hct MCV MCH MCHC RDW Std Deviation RDW Coeff of Abel Plt Count MPV Sodium Potassium Chloride Carbon Dioxide Anion Gap BUN Creatinine Est Cr Clr Drug Dosing eGFR BUN/Creatinine Ratio Glucose POC Glucose 270 H 106 H 192 H Calcium Magnesium Iron TIBC Transferrin Transferrin % Sat Ferritin 03/05/25 03/05/25 06:13 07:31 WBC 4.45 L RBC 2.46 L Hgb 7.4 L Hct 22.1 L MCV 89.8 MCH 30.1 MCHC 33.5 RDW Std Deviation 46.3 RDW Coeff of Abel 14.5 Plt Count 165 MPV 10.4 Sodium 139 Potassium 3.9 Chloride 107 Carbon Dioxide 23 Anion Gap 9 BUN 87 H Creatinine 4.40 H Est Cr Clr Drug Dosing 11.6 eGFR 10.43 BUN/Creatinine Ratio 19.8 Glucose 149 H POC Glucose 160 H Calcium 8.2 L Magnesium 2.0 Iron 42 TIBC 330 Transferrin 236 Transferrin % Sat 13 L Ferritin 289.0 PG Care Time/CCT Total # of Minutes Spent Total Time Spent with Patient: Total time spent is greater than 50% in coordination of care (as documented) at patient's floor/unit and/or counseling patient: Coding Level of Care Code 13423 SUB INP/OBS CARE 50MIN Diagnoses Acute kidney injury superimposed on stage 4 chronic kidney disease N17.9; N18.4 Chronic kidney disease N18.9 Chronic kidney disease stage: unspecified stage Acute on chronic heart failure with mildly reduced ejection fraction (HFmrEF, 41-49%) I50.23 Anemia D64.9 Anemia type: unspecified type UTI (urinary tract infection) N30.01 Hematuria presence: with hematuria Urinary tract infection type: acute cystitis Primary hypertension I10 Hypertension type: primary hypertension Pleural effusion J90 (2) Chronic kidney disease Chronic kidney disease stage: unspecified stage Qualified Code(s): N18.9 - Chronic kidney disease, unspecified (4) Anemia Anemia type: unspecified type Qualified Code(s): D64.9 - Anemia, unspecified (5) UTI (urinary tract infection) Hematuria presence: with hematuria Urinary tract infection type: acute cystitis Qualified Code(s): N30.01 - Acute cystitis with hematuria (6) Hypertension Hypertension type: primary hypertension Qualified Code(s): I10 - Essential (primary) hypertension
[2025-03-05] MEDS: IRON SUCROSE 200 MG in SODIUM CHLORIDE 0.9% 100 ML IV SCH (09:57)
--- NOTE | 2025-03-05 13:23 | Cardiology Progress Note ---
Date of Service March 05, 2025 Assessment & Plan Admission and Anticipated Discharge Date Admission Date: March 01, 2025 Results & Data Vital Signs (Past 12 Hours) Vital Signs Temp Pulse Pulse Resp BP BP Pulse Ox 03/05/25 11:33 36.2 C L 61 18 145/72 H 96 03/05/25 08:00 70 03/05/25 07:32 36.5 C 65 16 165/83 H 97 03/05/25 02:41 36.7 C 64 18 158/76 H 95 O2 Del Method 03/05/25 11:33 Room Air 03/05/25 08:00 03/05/25 07:32 Room Air 03/05/25 02:41 Room Air
--- NOTE | 2025-03-05 14:30 | Cardiology Progress Note ---
Date of Service March 04, 2025 Assessment & Plan (1) Acute on chronic heart failure with mildly reduced ejection fraction (HFmrEF, 41-49%): (2) Acute kidney injury superimposed on stage 4 chronic kidney disease: (3) Acute hypoxic respiratory failure: (4) Atrial fibrillation: Plan Continue current medications at this time. I am available to see her tomorrow if needed. If she develops any other acute symptoms I be happy to see her again. Admission and Anticipated Discharge Date Admission Date: March 01, 2025 Subjective Mrs. Cavazos is a 69-year-old female with a history of Hypertension, Dyslipidemia, Paroxysmal Atrial Fibrillation, HFmrEF, Cardiomyopathy (LVEF 40% to 45%), Mitral Regurgitation, Tricuspid Regurgitation, Stroke, Type 2 Diabetes Mellitus, and CKD who presented yesterday with an Acute Exacerbation of HFmrEF, Hypervolemia, Whole Body Fluid Overload, and ONEIL. He was seen in cardiac follow-up over the weekend. Patient offers no complaints today -- her breathing is much better but she still has some lower extremity edema. She was to have a thoracentesis on Thursday for her right pleural effusion but this was postponed till next week. She denies any chest pain, heaviness, tightness, pressure, or discomfort. She denies any palpitations, syncope, or near syncope. No fevers or chills. Patient states that her urine output was not completely documented. She does not feel that she made much urine. Weight is stable. CXR consistent with pulmonary edema, bilateral pleural effusions, and cardiomegaly. Echocardiogram shows reduced LV systolic function, LVEF is 40% to 45% with mid to distal anterior and anterolateral hypokinesis, [id number] mitral regurgitation, moderate left atrial enlargement, moderate tricuspid regurgitation, trace pericardial effusion, and RVSP is calculated at 68 mmHg. BNP is elevated at > 3000 pg/mL. Recommend the followin. Continue Coreg 12.5 mg b.i.d.. 2. Hold Losartan due to ONEIL. 3. Continue Imdur ER 60 mg daily. 4. Increase Hydralazine to 100 mg every 8 hours. 5. Oral Lasix 80 mg will be given today as per Dr. Bartholomew. 6. Strict low sodium diet. 7. Monitor daily body weights. 8. Monitor I&O's. 9. Continue Atorvastatin 40 mg daily. 10. Continue Aspirin 81 mg daily. 11. Proceed with thoracentesis as planned We will continue to follow this patient throughout her hospitalization and following discharge. Recommend follow-up in our Heart Failure [facility]. According to the patient she is not interested in dialysis and she plans to continue on medical therapy only. Review of Systems Review of Systems: All systems reviewed & are unremarkable except as noted in HPI & below Physical Exam Physical Exam: In no apparent distress Respiratory: Diminished breath sounds especially on the right Results & Data Vital Signs (Past 12 Hours) Vital Signs Temp Pulse Pulse Resp BP Pulse Ox O2 Del Method 03/04/25 11:22 36.4 C L 63 164/84 H 97 Room Air 03/04/25 08:00 66 03/04/25 06:56 36.8 C 67 18 160/82 H 98 Room Air 03/04/25 03:23 36.7 C 68 18 143/69 H 97 Nasal Cannula O2 Flow Rate 03/04/25 11:22 03/04/25 08:00 03/04/25 06:56 03/04/25 03:23 1
--- NOTE | 2025-03-05 15:27 | Hospitalist Progress Note ---
Date of Service March 05, 2025 Assessment & Plan (1) Acute on chronic heart failure with mildly reduced ejection fraction (HFmrEF, 41-49%): (2) Acute kidney injury superimposed on stage 4 chronic kidney disease: (3) Diabetes type 2, controlled: (4) Atrial fibrillation: Plan 69-year-old with heart failure with midrange range ejection fraction, atrial fibrillation, CKD stage IV as well as type 2 diabetes on insulin who was admitted with acute on chronic heart failure and ONEIL # acute on chronic heart failure - total body fluid overloaded # bilateral right greater than left pleural effusions. Probably related to cardiorenal failure # suspect ascites, though labs do not indicate decompensated cirrhosis. Probably related to cardiorenal failure # atrial fibrillation echo reviewedEF 40-45% there is been some increase in her MR now moderate to severe, moderate TR -BNP was severely elevated at 3000 - Has responded to diuresis with 80 mg of IV/p.o. Lasix -continue imdur, carvedilol, hydralazine 100 mg tid # new onset bilateral tinnitus without hearing loss - improved significantly empiric course of Debrox eardrops and Afrin hold lasix, resume divided doses if tinnitus resolved tomorrow ONEIL on CKD stage IV - non-oluguric. thought to have chronic kidney disease related to diabetes and hypertension, had 3g proteinuria on previous nephrology evaluation ONEIL with ATN potentially cardiorenal failure, could also be progression of CKD - she does not want to be on dialysis - reviewed recommendations in sports editor note 03/05 - hold ARB, avoid nephrotoxins - monitor UOP and BMP, Mag, phos - creatinine unchanged at 4.0, electrolytes are acceptable # E. coli UTIpan sensitive - treated with ceftriaxone, changed to keflex po, end after 5/6 AM dose -adjusted dose for renal function # R>>L pleural effusions / poss ascites - chest and abdominal tightness has resolved with diuresis - she changed her mind, does want thoracentesis tomorrow - reordered # DM type 2 - recent A1c at goal - continue long acting and premeal/correctional short acting insulin - ordered very conservative dosing because of poor renal function and lots of her body weight is water - BG at goal # Anemia - longstanding, past notes mention hypoproliferative and referred to hematology - unclear whether ever seen. Would expect anemia related to CKD at this point - iron studies and B12 are adequate - MELVI and Venofer given per nephrology - Hg stable at 7.5, no evidence of bleeding # recent cataract surgery - cont eye drops PT/OT eval DVT ppx - apixaban held for potential thoracentesis. meanwhile SQ heparin tid Admission and Anticipated Discharge Date Admission Date: March 01, 2025 Physical Exam 2 Physical Exam: PHYSICAL EXAMINATION Last 24h vital signs reviewed, see documentation in flowsheet General: sitting up on bed, at bedside HEENT: Normocephalic, atraumatic, pupils round and equal, sclerae anicteric, no conjunctival injection, moist mucus membranes Lungs: Normal respiratory effort. Absent breath sounds R base, clear otherwise Heart: Regular rate and rhythm, no murmurs. Abdomen: nondistended Extremities: Warm, dry, well-perfused. leg edema resolved Neuro: Alert and oriented x hospital and situation, face symmetric, moves 4 extremities well Psych: Normal affect and behavior Results & Data Results & Data Vital Signs (Past 12 Hours) Vital Signs Temp Pulse Pulse Resp BP Pulse Ox O2 Del Method 03/05/25 11:33 36.2 C L 61 18 145/72 H 96 Room Air 03/05/25 08:00 70 03/05/25 07:32 36.5 C 65 16 165/83 H 97 Room Air Laboratory Results 03/05/25 06:13 03/05/25 06:13 PG Care Time/CCT Total # of Minutes Spent Total Time Spent with Patient: Total time spent is greater than 50% in coordination of care (as documented) at patient's floor/unit and/or counseling patient: Coding Level of Care Code 30489 SUB INP/OBS CARE 3/50MIN Diagnoses Acute on chronic heart failure with mildly reduced ejection fraction (HFmrEF, 41-49%) I50.23 Acute kidney injury superimposed on stage 4 chronic kidney disease N17.9; N18.4 Diabetes type 2, controlled E11.9 Atrial fibrillation I48.91
[2025-03-06 06:13] LABS: Hematocrit (blood only) 23.2 % (37.0-47.0); Hemoglobin 7.7 g/dl (12.0-16.0); Mean Corpuscular Hemoglobin 29.8 pg (25.0-34.0); Mean Corpuscular Hgb Conc 33.2 g/dL (32.0-36.0); Mean Corpuscular Volume 89.9 fL (80.0-100.0); Mean Platelet Volume 9.9 fL (9.4-12.4); Platelet Count 188 K/uL (130-400); RDW Coefficient of Variation 14.4 % (11.5-14.5); RDW Standard Deviation 46.6 fL (36.4-46.3); Red Blood Count 2.58 M/uL (4.20-5.40); White Blood Count 5.24 K/ul (4.8-10.8)
[2025-03-06 06:35] LABS: BUN Creatinine Ratio 18.3 (10-20); Calcium 8.3 mg/dl (8.6-10.3); Creatinine Clr Calc Pharmacy 11.3 ml/min; Potassium 4.1 mmol/L (3.5-5.1); Total Protein 5.6 gm/dl (6.0-8.3)
[2025-03-06] MEDS: cephALEXin 250 MG CAP PO SCH (08:17)
--- NOTE | 2025-03-06 08:54 | Nephrology Progress Note ---
Date of Service March 06, 2025 Assessment & Plan (1) Acute kidney injury superimposed on stage 4 chronic kidney disease: Plan: * ONEIL/CKD due to cardiorenal syndrome. Renal ultrasound was negative for obstruction. Urinalysis positive for protein. UIEP negative for monoclonal band. CKD is on the basis of diabetic nephropathy * Patient has documented advanced CKD. Initially she was evaluated by Dr. Bartholomew 09/24 but did not maintain follow-up. She was assessed in my office 03/25 but indicated that she was aware of her advanced CKD and did not desire further medical testing, renal ultrasound, additional medications or routine follow up evaluation. She desired only to "get off all medications" and "live a natural life". Follow up w/ PCP was advised. * Cr is stable at 4.5 this morning. I met with Mrs. Cavazos and her this morning. She is awating thoracentesis +/- paracentesis tomorrow. She hopes to have discussion w/ cardiology re: MVR repair and meet w/ palliative care today. * Tinnitus has resolved. Will resume furosemide at 20 mg po BID and monitor symptoms * Monitor BMP, I/O's and daily weights (2) Chronic kidney disease: Plan: * CKD stage G4/A3 (advanced impairment). Baseline Cr 2.5. Urinalysis positive for protein. Nonnephritic urine sediment. UPCR 4.9. 10/25 UIEP - normal pattern. CKD likely due to DKD, hypertensive nephrosclerosis (3) Acute on chronic heart failure with mildly reduced ejection fraction (HFmrEF, 41-49%): Plan: * TTE: LVEF 40-45% with distal anterior/lateral hypokinesis; MR moderate to severe, TR moderate. * Continue to hold ALIDA/ARB, SGLT2i due to advanced CKD * Diuretic therapy as outlined above * Recommend discussion w/ cardiology as to whether patient is a candidate for MV clip (4) Anemia: Plan: * Hgb 7.4 * 03/05/25 iron sat 13%, ferritin 289 * Day #2/3 IV venofer * Will provide one dose SQ epogen (5) UTI (urinary tract infection): Plan: * E. Coli cystitis - resolved (6) Hypertension: Plan: * Hold losartan in the setting of ONEIL. Continue carvedilol, hydralazine, Imdur as Rx. Diuretics to encourage negative fluid balance. Hydralazine dose increased this AM. (7) Pleural effusion: Plan: * Thoracentesis +/- paracentesis is being planned for tomorrow Admission and Anticipated Discharge Date Admission Date: March 01, 2025 Subjective Mrs. Cavazos was evaluated in her hospital room this morning. Her was present at bedside. She reports increasing abdominal distention. Mrs. Cavazos expects to undergo thoracentesis +/- paracentesis tomorrow but requests discu ssion w/ cardiology re: MVR repair and meet w/ palliative care today. Tinnitus has resolved Review of Systems Constitutional: no fever Eyes: no problem reported Ear, Nose, Mouth, Throat: no problem reported Respiratory: + dyspnea on exertion; no cough Cardiovascular: no chest pain Gastrointestinal: no abdominal pain, no nausea, no vomiting and no diarrhea/loose stools Genitourinary: no dysuria and no hematuria Integumentary: no rash Neurologic: no problem reported Physical Exam Constitutional: not in distress Eyes: PERRL, conjunctivae normal, anicteric sclerae ENMT: external ear and nose normal, oropharynx normal Ears: + unable to visualize TM (R EAC occluded w/ cerumen, L EAC patent and TM clear) Neck: trachea midline, no thyromegaly Respiratory: Auscultation: + diminished lung sounds (at bases bilaterally) Cardiovascular: RRR, no murmur, no edema Gastrointestinal (Abdomen): Inspection/Auscultation: + abdomen distended Percussion/Palpation: abdomen nontender Musculoskeletal: Extremities: no cyanosis and no clubbing Skin: no rashes, warm and dry Neurologic: awake; not confused Results & Data Vital Signs (Past 12 Hours) Vital Signs Temp Pulse Pulse Resp BP BP Pulse Ox 03/06/25 07:50 67 03/06/25 07:12 36.5 C 66 16 173/86 H 96 03/06/25 03:01 36.5 C 97 H 18 152/77 H 100 03/05/25 23:00 63 03/05/25 22:48 36.7 C 61 18 144/74 H 96 03/05/25 22:40 O2 Del Method 03/06/25 07:50 03/06/25 07:12 Room Air 03/06/25 03:01 Room Air 03/05/25 23:00 05/04/25 22:48 Room Air 03/05/25 22:40 Room Air Laboratory Results Laboratory Results - last 24 hr 03/05/25 03/05/25 03/05/25 11:38 16:16 20:25 WBC RBC Hgb Hct MCV MCH MCHC RDW Std Deviation RDW Coeff of Abel Plt Count MPV PT INR Sodium Potassium Chloride Carbon Dioxide Anion Gap BUN Creatinine Est Cr Clr Drug Dosing eGFR BUN/Creatinine Ratio Glucose POC Glucose 151 H 151 H 198 H Calcium Lactate Dehydrogenase Total Protein 03/06/25 03/06/25 05:55 07:17 WBC 5.24 RBC 2.58 L Hgb 7.7 L Hct 23.2 L MCV 89.9 MCH 29.8 MCHC 33.2 RDW Std Deviation 46.6 H RDW Coeff of Abel 14.4 Plt Count 188 MPV 9.9 PT 11.0 INR 1.0 Sodium 139 Potassium 4.1 Chloride 107 Carbon Dioxide 23 Anion Gap 9 BUN 83 H Creatinine 4.54 H* Est Cr Clr Drug Dosing 11.3 eGFR 10.05 BUN/Creatinine Ratio 18.3 Glucose 131 H POC Glucose 154 H Calcium 8.3 L Lactate Dehydrogenase 177 Total Protein 5.6 L PG Care Time/CCT Total # of Minutes Spent Total Time Spent with Patient: Total time spent is greater than 50% in coordination of care (as documented) at patient's floor/unit and/or counseling patient: Coding Level of Care Code 06176 SUB INP/OBS CARE 3/50MIN Diagnoses Acute kidney injury superimposed on stage 4 chronic kidney disease N17.9; N18.4 Chronic kidney disease N18.9 Chronic kidney disease stage: unspecified stage Acute on chronic heart failure with mildly reduced ejection fraction (HFmrEF, 41-49%) I50.23 Anemia D64.9 Anemia type: unspecified type UTI (urinary tract infection) N30.01 Hematuria presence: with hematuria Urinary tract infection type: acute cystitis Primary hypertension I10 Hypertension type: primary hypertension Pleural effusion J90 (2) Chronic kidney disease Chronic kidney disease stage: unspecified stage Qualified Code(s): N18.9 - Chronic kidney disease, unspecified (4) Anemia Anemia type: unspecified type Qualified Code(s): D64.9 - Anemia, unspecified (5) UTI (urinary tract infection) Hematuria presence: with hematuria Urinary tract infection type: acute cysti tis Qualified Code(s): N30.01 - Acute cystitis with hematuria (6) Hypertension Hypertension type: primary hypertension Qualified Code(s): I10 - Essential (primary) hypertension
[2025-03-06] MEDS: FUROSEMIDE 40 MG TAB PO SCH (11:41)
--- NOTE | 2025-03-06 11:43 | XRay Report ---
XR chest 1V not portable CLINICAL HISTORY: POST THORACENTESIS COMPARISON STUDY: Chest radiograph March 01, 2025. FINDINGS: There is no pneumothorax following thoracentesis. The right pleural effusion has significan tly decreased in size. There are small bilateral pleural effusions. Cardiomegaly is again noted. Mild interstitial pulmonary edema persists. IMPRESSION: No pneumothorax status post thoracentesis. ACT 112: Negative or not required by law. Electronically signed by: Roland Swan M.D. 03/06/2025 11:42 AM
[2025-03-06 11:54] LABS: Appearance Pleural Fluid Clear; Color Pleural Fluid Yellow; RBC Pleural Fluid Auto < 2000 /uL; Source Pleural Fluid Right Lung; WBC Pleural Fluid Auto 200 /uL
--- NOTE | 2025-03-06 11:56 | Palliative Care Consultation ---
Date of Consultation March 06, 2025 Assessment & Plan (1) Palliative care by specialist: Met with pt and her spouse at bedside. Introduced Palliative Medicine and explained our role in advanced care planning, symptom management and navigation through the progression of life limiting disease. Patient and/or family were receptive to palliative services for goals of care discussions. Reviewed we are different from hospice, a home health nurse visiting service. Patient currently exhibits decisional capacity based on the ability to convey understanding of personal PMHx, current medical condition, treatment options nor the risks / benefits of those options, and ability to make decisions based on such knowledge. Hospital does not have written documentation of patient wishes concerning her chosen proxy for medical decisions. Per PA [id number], in absence of written documentation of patient wishes, pt's proxy for medical decisions would be her spouse. Spouse Raoul Cavazos is at bedside and in agreement to serve as MDM proxy if need were to arise. Discussed importance of establishing an advanced directive to effectively document wishes, blank document provided for review. Pt does not currently require a proxy for medical decisions. (2) Quality of life palliative care encounter: Pt shared that she is retired and highly values her independence. She shared that she understands that her heart failure and kidney disease are progressively debilitating in nature. She verbalized understanding that following closely with cardiology and nephrology as well as her PCP will be necessary to optimize her organ function and minimize burden of symptoms in order to maximize QOL as well as longevity. She shared that she is not interested in prolonging her life, but that she was scared when her lungs filled up with fluid. She shared that she does not want to have frequent visits to doctor offices, but that she does wish to try to prevent fluid build up and continue to pursue life prolonging treatments. She shared that living independently at home is what she values most and confirmed her DNR/DNI status, stating "when my time is up I want to in peace at home". She shared that she wishes to minimize the number of medications that she takes because she does not want "more unnatural chemicals polluting my body". We discussed that with heart failure and kidney disease, her health will continue to decompensate but symptoms can be managed and minimized with fluid/diet restrictions and medications. Discussed trying to separate medication timing so that she is taking a smaller number of pills at any given time vs taking most of her medications all first thing in morning. She seemed agreeable to this, but remains hesitant to adding more medications as her disease progresses. She shared that she does not want to "be constantly seeing a different doctor all week long". We briefly discussed options of continued life prolonging therapies, involving out patient management with cose monitoring by combination of cardiology, nephrology and PCP vs transition to comfort directed care to ensure comfort and dignity while allowing for a natural . Discussed hospice benefit: an interdisciplinary program offered by nurses, nurses aides, social workers, chaplains and a medical claims assistant for patients with a terminal condition and a life expectancy of less than 6 months. This is covered by Medicare at 100%/no out of pocket expense to patient and all meds/supplies needed by patient for the reason they are on hospice are paid for/covered by hospice. The goal is assure quality of life of the patient in their home setting (home, mcc, inpatient hospice setting) by providing symptoms management, psychosocial and spiritual support. However, they cannot offer 24 hours care and if the family is unable to provide that care, they will have to consider personal care with out of pocket cost vs. mcc placement. We discussed the goals of hospice as a patient service and the goals of care; we discussed EOL trajectories and transitions paresh the emotional impact of realizing mortality as a concrete reality from prior abstract considerations. Pt was reassured that no matter where they are along this trajectory, they are not alone - their medical team will remain by their side through their journey. Discussed the pros/cons of accepting help when especially weakened and distressed by pain-which would also help provide relief/decrease caregiver burden/strain. Ultimately, patient shared that she does wish to try GDMT and continue life prolonging therapies "for a while to see how it goes". She shared that she is not willing to accept any aggressive interventions such as "kidney transplant or hemodialysis and if it comes to that then I will go the hospice route". We discussed outpt palliative follow up for ongoing navigation through the progression of her disease, she is agreeable and would like appointment scheduled for 2 - 4 weeks after discharge. (3) POLST (Physician Orders for Life-Sustaining Treatment): POLST form discussed and completed with patient and her spouse. Copy placed in chart and sent to for uploading to EMR. Per pt request, POLST directs DNR/DNI, limited interventions with NO artificial nutrition or hydration via tube, and continue antibiotics as indicated. (4) Counseling regarding goals of care: Time of Meetin:00 - 10:38 Participants: Rocio Royal AGACNP Patient participation: yes Patient Support System: spouse Raoul Cavazos Other Healthcare Provider Participation: None Meeting Location: bedside Advanced Directive available: no If yes, descriptors: The patient's surrogate medical decision maker participated: yes - spouse Legally authorized health care proxy: spouse is LNOK Other surrogate: n/a A family meeting was held for Carol Cavazos. This meeting was necessary for determining the appropriate course of treatment. Plan discussed with BSRN and attending. Plan as above. History of Present Illness Reason for Consultation: goals of care Requesting Physician: Tammy Josue MD Attending Physician: Tammy Josue MD History of Present Illness Carol Cavazos is a 69 year-old female with diabetes mellitus, hypertension, paroxysmal atrial fibrillation, HFmrEF, anemia, recurrent UTI, and chronic kidney disease. On 03/01/25 she presented to the ER at [facility] after several days of progressive lower extremity edema, RAMIREZ and rest, fatigue, PND and orthopnea. She was admitted for medical managment of acute exacerbation of HFmrEF, Hypervolemia, Whole Body Fluid Overload, and worsening renal function. Of note: Carol was evaluated in the [facility] [place] clinic by Dr. Hensley in March 2024 but at that time expressed a strong desire to "get off all medications" and "live a natural life". She refused further Nephrology evaluation/testing. She was admitted to [facility] in October 2024 with COVID infection, acute on chronic CHF, and ONEIL which was attributed to cardiorenal syndrome and hemodynamic changes. Carol maintained follow up with her PCP but has not seen a nurse reviewer since she was discharged from [facility] in October and has not had outpatient nephrology follow up since in March 2024. Allergies Allergy/AdvReac Type Severity Reaction Status Date / Time empagliflozin Allergy Severe Unknown Verified 02/21/25 08:01 [From Jardiance] Home Medications Medication Instructions Recorded Confirmed Type lancets 33 gauge (OneTouch Delica #100 ea 05/28/23 02/08/25 Rx Plus Lancet) aspirin 81 mg tablet,delayed 81 mg PO QAM #30 tabs 03/18/24 03/01/25 Rx release OneTouch Verio test strips (blood #100 ea 03/22/24 02/08/25 Rx sugar diagnostic) blood sugar diagnostic (Accu-Chek #100 ea 03/24/24 02/08/25 Rx Elvira Plus test strips) blood-glucose,vehicle dynamics engineer,cont #1 ea 03/30/24 02/08/25 Rx (Dexcom G7 Mud Tank Operator) pen needle, diabetic 32 gauge x #100 ea 09/12/24 02/08/25 Rx 5/32" (BD Ultra-Fine Snow Pen Needle) carvedilol 6.25 mg tablet 6.25 mg PO BID 10/23/24 03/01/25 History apixaban 5 mg tablet (Eliquis) 5 mg PO BID 30 days #180 tabs 11/08/24 03/01/25 Rx losartan 25 mg tablet 25 mg PO QAM #90 tabs 12/06/24 03/01/25 Rx furosemide 40 mg tablet (Lasix) 40 mg PO QAM #90 tabs 01/03/25 03/01/25 Rx insulin degludec 100 unit/mL (3 8 unit subcut QAM 01/26/25 03/01/25 History mL) subcutaneous pen (Tresiba FlexTouch U-100 insulin) isosorbide mononitrate 60 mg 60 mg PO QAM 01/26/25 03/01/25 History tablet,extended release 24 hr sertraline 50 mg tablet 50 mg PO QAM 01/26/25 03/01/25 History blood-glucose sensor (Dexcom G7 #4 ea 02/01/25 02/08/25 Rx Sensor device) atorvastatin 40 mg tablet 40 mg PO QPM #90 tabs 02/03/25 03/01/25 Rx ketorolac 0.5 % eye drops See Rx Instructions .Route .COMPLEX 03/01/25 03/01/25 History moxifloxacin 0.5 % eye drops See Rx Instructions .Route .COMPLEX 03/01/25 03/01/25 History prednisolone acetate 1 % eye See Rx Instructions .Route .COMPLEX 03/01/25 03/01/25 History drops,suspension Patient History Medical History Acute hypoxic respiratory failure hx, 10/2024, hospitalized at [facility] w/covid History of COVID-19 10/2024 Anxiety and depression Hypertension Paroxysmal atrial fibrillation currently on eliquis; no cardiology Hx of mitral valve insufficiency History of CHF (congestive heart failure) Bilateral edema of lower extremity Acute on chronic heart failure with preserved ejection fraction (HFpEF, >= 50%) hx; has f/u [place] Bilateral ankle joint pain Type 2 diabetes mellitus, uncontrolled Weakness ongoing Prolonged QT interval hx, 03/2024, hospitalized at [facility] 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 Pulmonary edema hx, 10/2024, hospitalized at [place] w/covid and acute respiratory failure Hyperosmolar hyperglycemic state (HHS) hx, hospitalized [facility] 03/2024 Acute metabolic encephalopathy hx, hospitalized [facility] 03/2024 Severe sepsis hx, 03/2024, hospitalized at [facility] HHS (hypothenar hammer syndrome) unsure? Elevated troponin hx, hospitalized [facility] 03/2024 Unresponsive state hx, 03/2024, hospitalized at [facility] DKA (diabetic ketoacidosis) hx, hospitalized [facility] 03/2024; per records had been off of diabetic oral med and insulin for months Hyperlipidemia Surgical History Hx of right cataract extraction (02/07/25) Hx of colonoscopy History of lumbar surgery L4-L5, 40+ years ago H/O total hysterectomy Family History Father Diabetes Prostate cancer Grandmother Diabetes Aunt Colorectal cancer Brother Stroke Denies family history of Ovarian cancer Myocardial infarction Breast cancer Social History Smoking Status: Never smoker Tobacco Type: E-cigarettes / Vaping Second Hand Exposure: Yes (hx); Do You Dip or Chew Tobacco: No; Hx Alcohol Use: No Hx Substance Use: No Preferred Language: Micronesian Communication Ability: Effective Communication Ability Comment: Patient reports she has trouble seeing Visual Impairment: No Limitations Hearing Ability: Normal Linux Server Engineer Required: No Beliefs That Will Affect Care: None marital status: Current Living Situation: Spouse Current Living Situation Comment: Lives with spouse current occupational status: retired 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 How many Children do You have: 3 Feels Safe at Home: Yes Childhood Exposure to Second-Hand Smoke: No Diet: regular Diet Comment: added more salads to diet. caffeine: Yes (soda 3 x week) during the past year weight has: remained stable Dental Care, Regularly: No Physical Activity Frequency: Does not Exercise Seatbelt Use: always Sunscreen Use: No Do you think of yourself as: straight/heterosexual Gender Identity: Female Assistive Devices: Cane and Walker Review of Systems Review of Systems: All systems reviewed & are unremarkable except as noted in HPI & below Physical Exam Constitutional: well developed, well nourished, cooperative and comfortable; no acute distress Eyes: PERRL, conjunctivae normal, anicteric sclerae ENMT: external ear and nose normal, oropharynx normal Neck: trachea midline, no thyromegaly Respiratory: normal respiratory effort, + cough and able to speak in complete sentences; does not use accessory muscles Auscultation: + crackles Cardiovascular: Rate/Rhythm: regular rate and regular rhythm Heart Sounds: normal S1 and normal S2 Extremities: normal capillary refill, + pedal edema and + edema Gastrointestinal (Abdomen): normal bowel sounds, soft, nontender, no hepatosplenomegaly Musculoskeletal: no cyanosis or clubbing, extremities motor strength 5/5 Neurologic: PERRL, EOMI, accommodation nl, no face palsy, no dysarthria Psychiatric: A+Ox3, euthymic affect Results & Data Vital Signs (Past 12 Hours) Vital Signs Temp Pulse Pulse Resp BP BP Pulse Ox 03/06/25 07:50 67 03/06/25 07:12 36.5 C 66 16 173/86 H 96 03/06/25 03:01 36.5 C 97 H 18 152/77 H 100 O2 Del Method 03/06/25 07:50 03/06/25 07:12 Room Air 03/06/25 03:01 Room Air Laboratory Results Abnormal lab results 03/05/25 03/05/25 03/05/25 Range/Units 11:38 16:16 20:25 RBC (4.20-5.40) M/uL Hgb (12.0-16.0) g/dl Hct (37.0-47.0) % RDW Std Deviation (36.4-46.3) fL BUN (6-23) mg/dl Creatinine (0.6-1.2) mg/dl Glucose (70-99(Fasting)) mg/dl POC Glucose 151 H 151 H 198 H (70-99) mg/dl Calcium (8.6-10.3) mg/dl Total Protein (6.0-8.3) gm/dl 03/06/25 03/06/25 Range/Units 05:55 07:17 RBC 2.58 L (4.20-5.40) M/uL Hgb 7.7 L (12.0-16.0) g/dl Hct 23.2 L (37.0-47.0) % RDW Std Deviation 46.6 H (36.4-46.3) fL BUN 83 H (6-23) mg/dl Creatinine 4.54 H* (0.6-1.2) mg/dl Glucose 131 H (70-99(Fasting)) mg/dl POC Glucose 154 H (70-99) mg/dl Calcium 8.3 L (8.6-10.3) mg/dl Total Protein 5.6 L (6.0-8.3) gm/dl Diagnostic Findings Abdomen Ultrasound 03/01/25 11:57 US abdomen complete CLINICAL HISTORY: poss L pyelo, ONEIL, poss ascites/liver disease COMPARISON STUDY: CT of the abdomen and pelvis March 05, 2024. FINDINGS: Bilateral pleural effusions are incidentally noted. Liver is sonogr aphically normal. There are no gallstones within the gallbladder. There is no gallbladder wall thickening. Pancreas is unremarkable by sonography although the head and tail are slightly obscured. Caliber of the abdominal aorta is normal. Visualized portions of the IVC are patent. There is no biliary ductal dilatation. Size of the spleen is normal. The right kidney measures 10.5 x 4.9 x 5.5 cm and the left kidney measures 10.8 x 5.7 x 5.2 cm. There is no hydronephrosis. 5 mm left lower pole renal cyst is present. No renal fluid collection is present. No focal abnormality within the kidneys is identified. IMPRESSION: 1. No hydronephrosis. 2. No renal fluid collection. 3. No gallstones or biliary ductal dilatation. 4. Bilateral pleural effusions. ACT 112: Negative or not required by law. Electronically signed by: Roland Swan M.D. 03/01/2025 1:25 PM Medications Administered Current Inpatient Medications Acetaminophen (Acetaminophen 325 Mg Tab) 650 mg PO Q4H PRN PRN Reason: Pain or Fever Stop: 03/31/25 14:29 Last Admin: 03/05/25 20:33 Dose: 650 mg Aspirin (Aspirin 81 Mg Ectab) 81 mg PO QAM [facility] Stop: 04/01/25 08:59 Last Admin: 03/06/25 08:18 Dose: 81 mg Atorvastatin Calcium (Atorvastatin 40 Mg Tab) 40 mg PO QPM [facility] Stop: 03/31/25 20:59 Last Admin: 03/05/25 20:30 Dose: 40 mg Carbamide Peroxide (Carbamide Peroxide 6.5% 15 Ml Btl) 10 drops OTB BID [facility] Stop: 03/07/25 23:55 Last Admin: 03/06/25 08:15 Dose: 10 drops Carvedilol (Carvedilol 12.5 Mg Tab) 12.5 mg PO BIDM [facility] Stop: 03/31/25 16:59 Last Admin: 03/06/25 08:18 Dose: 12.5 mg Cephalexin HCl (Cephalexin 250 Mg Cap) 250 mg PO DAILY [facility]; Protocol Stop: 03/07/25 09:05 Last Admin: 03/06/25 08:17 Dose: 250 mg Dextrose (Dextrose 50% 50 Ml Syringe) 25 - 50 ml IV UD PRN; Protocol PRN Reason: Hypoglycemia Protocol Stop: 03/31/25 14:29 Furosemide (Furosemide 40 Mg Tab) 40 mg PO BID17 [facility] Stop: 04/05/25 09:39 Glucagon (Glucagon For Inj 1 Mg Vial) 1 mg SQ UD PRN; Protocol PRN Reason: Hypoglycemia Protocol Stop: 03/31/25 14:29 Glucose (Glucose 40% Gel 15 Gm Tube) 15 - 30 gm PO UD PRN; Protocol PRN Reason: Hypoglycemia Protocol Stop: 03/31/25 14:29 Glucose (Glucose 10 Tab/Tube) 4 - 8 tab PO UD PRN; Protocol PRN Reason: Hypoglycemia Protocol Stop: 03/31/25 14:29 Hydralazine HCl (Hydralazine Tab 50 Mg Tab) 100 mg PO Q8H [facility] Stop: 04/02/25 16:59 Last Admin: 03/06/25 08:18 Dose: 100 mg Iron Sucrose 200 mg/ Sodium (Chloride) 110 mls @ 220 mls/hr IV DAILY [facility] Stop: 03/07/25 09:29 Last Infusion: 03/06/25 10:25 Dose: Infused Insulin Aspart (Insulin Aspart Per Unit Charge) 0 units SC ACHS [facility] Stop: 03/31/25 16:29 Last Admin: 03/06/25 08:22 Dose: 1 units Insulin Glargine (Lantus Per Unit Charge) 5 units SQ QAM [facility] Stop: 04/01/25 08:59 Last Admin: 03/06/25 08:22 Dose: 5 units Isosorbide Mononitrate (Isosorbide [place] Extended Rel 60 Mg Tabcr) 60 mg PO QAM [facility] Stop: 03/31/25 14:44 Last Admin: 03/06/25 08:18 Dose: 60 mg Ketorolac Tromethamine (Ketorolac 0.5% Op Soln 5 Ml Btl) 1 drops OPB QID [facility] Stop: 03/31/25 16:59 Last Admin: 03/06/25 08:15 Dose: 1 drops Magnesium Hydroxide (Magnesium Hydroxide Susp 30 Ml Udc) 30 ml PO Q12H PRN PRN Reason: Constipation Stop: 03/31/25 14:29 Melatonin (Melatonin 3 Mg Tab) 3 mg PO HS PRN PRN Reason: Sleep Stop: 03/31/25 14:29 Last Admin: 03/01/25 20:12 Dose: 3 mg Miscellaneous (Carbohydrates For Hypoglycemia ) 15 - 30 gm PO UD PRN PRN Reason: Hypoglycemia Protocol Stop: 03/31/25 14:29 Ondansetron HCl (Ondansetron Inj 2 Mg/Ml 2 Ml Vial) 4 mg IV Q6H PRN PRN Reason: Nausea Stop: 03/31/25 14:29 Last Admin: 03/05/25 08:30 Dose: 4 mg Oxymetazoline HCl (Oxymetazoline 0.05% 30 Ml Btl) 1 sprays NA BID [facility] Stop: 03/06/25 23:55 Last Admin: 03/06/25 08:16 Dose: 1 sprays Polyethylene Glycol (Polyethylene (Miralax) 17 Gm Pack) 17 gm PO DAILY PRN PRN Reason: Constipation Stop: 03/31/25 14:29 Prednisolone Acetate (Prednisolone Acetate 1% Op Susp 5 Ml Btl) 1 drops OPB TID [facility] Stop: 03/31/25 14:44 Last Admin: 03/06/25 08:16 Dose: 1 drops Sertraline HCl (Sertraline Hcl 50 Mg Tablet) 50 mg PO QAM [facility] Stop: 04/01/25 08:59 Last Admin: 03/06/25 08:18 Dose: 50 mg PG Care Time/CCT Total # of Minutes Spent Total Time Spent with Patient: Total time spent is greater than 50% in coordination of care (as documented) at patient's floor/unit and/or counseling patient: Advanced Care Planning 73494 Advanced Care Planning 30 [place] [address] IN/OBS CONSULT LVL 3,45M Patient Type New History Expanded Problem Focused Exam Expanded Problem Focused Medical Decision Making Moderate Complexity Diagnoses Palliative care by specialist Z51.5 Quality of life palliative care encounter Z51.5 POLST (Physician Orders for Life-Sustaining Treatment) Z78.9 Counseling regarding goals of care Z71.89 Additional Codes Advanced Care Planning - 11243 Advanced Care Planning 30 Min: 90228 Advanced Care Planning 30 Min ([id number])
[2025-03-06 12:03] LABS: Glucose Pleural Fluid 164 mg/dl; LDH Pleural Fluid 57 U/L; Total Protein Pleural Fluid < 3.0 gm/dl
[2025-03-06 12:14] LABS: Lymphocytes, Fluid 29 %; Mono,Macrophage,Mesothelial 69 %; Neutrophils, Fluid 2 %
--- NOTE | 2025-03-06 12:19 | Ultrasound Report ---
IR thoracentesis wo tube US CLINICAL HISTORY: right pleural effusion COMPARISON STUDY: Chest x-ray earlier today Technique: After the procedure was discussed and questions answered, consent was obtained. Ms. Cavazos was positioned seated upright. Preprocedure ultrasound demonstrated large right pleural effusion. The right back was prepped and draped in standard sterile fashion. 1% lidocaine was used for local anest hesia. Under ultrasound guidance, a standard thoracentesis needle and catheter set was advanced from a right posterior lower intercostal approach into the right pleural effusion. Needle was removed. 1.5 L straw-colored fluid was withdrawn. Catheter was removed. Hemostasis was obtained with manual compr ession. Sterile dressing was applied. IMPRESSION: Right thoracentesis as described. A sample of the fluid was sent to the lab for analysis . ACT 112: Negative or not required by law. Electronically signed by: Nimesh Montgomery M.D. 03/06/2025 12:17 PM
--- NOTE | 2025-03-06 12:57 | Hospitalist Progress Note ---
Date of Service March 06, 2025 Assessment & Plan (1) Acute on chronic heart failure with mildly reduced ejection fraction (HFmrEF, 41-49%): (2) Acute kidney injury superimposed on stage 4 chronic kidney disease: (3) Diabetes type 2, controlled: (4) Atrial fibrillation: Plan 69-year-old with heart failure with midrange range ejection fraction, atrial fibrillation, CKD stage IV as well as type 2 diabetes on insulin who was admitted with acute on chronic heart failure and ONEIL # acute on chronic heart failure - total body fluid overloaded # bilateral right greater than left pleural effusions. Transudative on right, related to cardiorenal failure # suspect ascites, though labs do not indicate decompensated cirrhosis. related to cardiorenal failure # atrial fibrillation # moderate to severe MR echo reviewedEF 40-45% there is been some increase in her MR now moderate to severe, moderate TR -BNP was severely elevated at 3000 - Has responded to diuresis with 80 mg of IV/p.o. Lasix - resuming 40 mg bid po today -continue imdur, carvedilol, hydralazine 100 mg tid - R thoracentesis 03/06 for 1.5L Had some mild chest discomfort related to lung reexpansion today, reviewed CXR film - drained almost to dry on R and no PTX. Reviewed pleural fluid studies, transudative by Light's criteria, low cell count and mildly alkalotic pH no evidence of empyema. Culture and gram stain, cytology pending - discussed with Dr. Muñoz today - he will see in afternoon # new onset bilateral tinnitus without hearing loss - occurred 03/04 after lasix 80 mg po. resolved today - empiric course of Debrox eardrops and Afrin - resumed lasix in divided dose 40 mg po bid per support services coordinator recommendation, monitor for recurrence of tinnitus # ONEIL on CKD stage IV - non-oluguric. thought to have chronic kidney disease related to diabetes and hypertension, had 3g proteinuria on previous nephrology evaluation ONEIL with ATN potentially cardiorenal failure, could also be progression of CKD - she does not want dialysis - reviewed recommendations in support services coordinator note 03/05 - hold ARB, avoid nephrotoxins - monitor UOP and BMP, Mag, phos - creatinine relatively unchanged at 4.5, electrolytes are acceptable # E. coli UTIpan sensitive - treated with ceftriaxone, changed to keflex po, end after 5/6 AM dose # DM type 2 - recent A1c at goal - continue long acting and premeal/correctional short acting insulin - ordered very conservative dosing because of poor renal function and lots of her body weight is water - BG at goal # Anemia - longstanding, past notes mention hypoproliferative and referred to hematology - unclear whether ever seen. Would expect anemia related to CKD at this point - iron studies and B12 are adequate - MELVI and Venofer given per nephrology - Hg stable at 7.7, no evidence of bleeding # recent cataract surgery - cont eye drops Palliative care consulted today - discussed with EUGENE Royal. She filled out POLST - her has it. Understands her overall poor prognosis. Has longstanding pattern of avoiding care (not showing to appts, etc). DNR/DNI and no hemodialysis. Would like to go home and see how things go "for about a month" with regular care and transition to hospice if worsening or burden of care not acceptable for her (pills, appointments etc). Will follow up in palliative care clinic within a few weeks of discharge. PT/OT eval DVT ppx - apixaban held for potential thoracentesis, resume in AM Admission and Anticipated Discharge Date Admission Date: March 01, 2025 Subjective Feeling like she has increased chest/abdominal tightness again. No increase in leg edema. Having thoracentesis today. Physical Exam 2 Physical Exam: PHYSICAL EXAMINATION Last 24h vital signs reviewed, see documentation in flowsheet General: awak and sitting on bed HEENT: Normocephalic, atraumatic, pupils round and equal, sclerae anicteric, no conjunctival injection, moist mucus membranes Lungs: Normal respiratory effort. Absent breath sounds R base, clear otherwise Heart: Regular rate and rhythm, murmur Abdomen: soft nondistended to minimally distended Extremities: Warm, dry, well-perfused. leg edema resolved Neuro: Alert and oriented x hospital and situation, face symmetric, moves 4 extremities well Psych: Normal affect and behavior Results & Data Results & Data Vital Signs (Past 12 Hours) Vital Signs Temp Pulse Pulse Resp BP BP Pulse Ox 03/06/25 11:50 36.3 C L 61 16 160/81 H 96 03/06/25 07:50 67 03/06/25 07:12 36.5 C 66 16 173/86 H 96 03/06/25 03:01 36.5 C 97 H 18 152/77 H 100 O2 Del Method 03/06/25 11:50 Room Air 03/06/25 07:50 03/06/25 07:12 Room Air 03/06/25 03:01 Room Air Laboratory Results 03/06/25 05:55 03/06/25 05:55 PG Care Time/CCT Total # of Minutes Spent Total Time Spent with Patient: Total time spent is greater than 50% in coordination of care (as documented) at patient's floor/unit and/or counseling patient: Coding Level of Care Code 49781 SUB INP/OBS CARE 3/50MIN Diagnoses Acute on chronic heart failure with mildly reduced ejection fraction (HFmrEF, 41-49%) I50.23 Acute kidney injury superimposed on stage 4 chronic kidney disease N17.9; N18.4 Diabetes type 2, controlled E11.9 Atrial fibrillation I48.91
[2025-03-06] MEDS: EPOETIN ALFA 10,000 UNITS/ML VIAL SQ ONE (13:23)
--- NOTE | 2025-03-06 22:16 | Cardiology Progress Note ---
Date of Service March 06, 2025 Assessment & Plan (1) Acute on chronic heart failure with mildly reduced ejection fraction (HFmrEF, 41-49%): (2) Mitral regurgitation: (3) Paroxysmal atrial fibrillation: (4) ONEIL (acute kidney injury): (5) Anemia: (6) Cardiomyopathy: (7) Hypertension: (8) Pulmonary hypertension: Plan ASSESSMENT/PLAN: 1. Mitral regurgitation: I was asked by primary hospitalist service to evaluate her today in regards to her mitral regurgitation. Mitral clip had been brought up by other providers/family. We discussed this today in detail at the bedside with patient and her . We discussed the fact that once diuresed, would want to repeat imaging such as transesophageal echo and if mitral regurgitation appears severe, could refer to a tertiary care center with CT surgery capability to evaluate for MitraClip versus surgical repair/replacement. After discussing, she promptly stated that she is not interested in pursuing further evaluation in this regard. She does not wish to go to another hospital and undergo invasive measures. She does not want a SEN. She states that she plans on seeing how she does when she leaves the hospital, following up with palliative care, and if not doing well, transition to hospice. 2. Acute on chronic heart failure with mildly reduced EF: She appears mildly hypervolemic today. Her symptoms have significantly improved following thoracentesis. Continue diuresis with close monitoring of renal function and electrolytes. Low-sodium diet, less than 2000 mg daily. Strict I's and O's. Daily weights. Given renal function, not a candidate for ARNI, ALIDA inhibitor, ARB, mineralocorticoid receptor antagonist, or SGLT2 inhibitor. 3. Cardiomyopathy: No significant ischemia reported on 09/26/2024 myocardial perfusion study. She does not wish for extensive workup as per above discussion. Continue beta-jefferson if no contraindication. 4. Paroxysmal atrial fibrillation: Sinus rhythm. On anticoagulation therapy for stroke risk reduction. If her weight drops below 60 kg with her current renal function, would reduce dose to 2.5 mg twice daily of Eliquis but otherwise continue current dose for now. Monitor CBC. 5. Acute kidney injury: As per nephrology. 6. Hypertension: Most recent blood pressure reasonable. Hydralazine increased as per nephrology note. 7. Anemia: Per nephrology and primary hospitalist service. Monitor for bleeding. 8. Pulmonary hypertension: Likely due to hypervolemia and potentially mitral regurgitation if severe. 9. Disposition: Offered follow-up in the heart failure program and/or cardiology outpatient clinic to manage her multiple cardiac issues. She is not interested in follow-up and declines follow-up in the outpatient setting. She states that she does not plan on following with any provider other than palliative care for now. Happy to see her if she changes her mind in the future. Cardiology will sign off. Patient care communicated with primary hospitalist, Dr. Josue. Admission and Anticipated Discharge Date Admission Date: March 01, 2025 Subjective Patient was seen this afternoon. Her was present at the bedside. She had already completed her thoracentesis earlier today and reports feeling much better following the procedure. The right thoracentesis drained 1.5 L. She had some pleuritic chest discomfort following but was comfortable this afternoon. She was able to ambulate in the hallways with mild dyspnea on exertion. She denies syncope, near syncope, palpitations, edema, or bleeding. She was seen earlier today by palliative care as well Physical Exam Physical Exam: Gen.: No acute distress. Alert. HEENT: Anicteric sclera. Neck: Mild JVD and hepatojugular reflux. Cardiac: Regular. Normal S1-S2. 1/6 systolic murmur. Pulmonary: Clear to auscultation bilaterally without wheezes, rales, or rhonchi. Abdomen: Soft, nontender, nondistended, with normoactive bowel sounds. No bruits noted. Extremities: 2+ radial pulses bilaterally. 2+ posterior tibialis pulses bilaterally. Trace bilateral pedal edema. No cyanosis. Results & Data Vital Signs (Past 12 Hours) Vital Signs Temp Pulse Pulse Pulse Resp BP BP 03/06/25 21:54 03/06/25 19:22 36.5 C 63 22 128/62 03/06/25 16:00 64 03/06/25 15:24 36.3 C L 60 18 151/73 H 03/06/25 11:50 36.3 C L 61 16 160/81 H Pulse Ox O2 Del Method 03/06/25 21:54 Room Air 03/06/25 19:22 96 Room Air 03/06/25 16:00 03/06/25 15:24 97 Room Air 03/06/25 11:50 96 Room Air Intake & Output 05/0303/05/25 03/06/25 03/07/25 06:59 06:59 06:59 06:59 Intake Total 550 / 550 240 / 240 500 / 500 350 / 350 Output Total 650 / 650 750 / 750 901 / 901 300 / 300 Balance -100 / -100 -510 / -510 -401 / -401 50 / 50 Weight 139 lb 12.369 oz 137 lb 9.095 oz 135 lb 9.349 oz Laboratory Results Laboratory Results - last 24 hr 03/06/25 03/06/25 03/06/25 05:55 07:17 11:36 WBC 5.24 RBC 2.58 L Hgb 7.7 L Hct 23.2 L MCV 89.9 MCH 29.8 MCHC 33.2 RDW Std Deviation 46.6 H RDW Coeff of Abel 14.4 Plt Count 188 MPV 9.9 PT 11.0 INR 1.0 Sodium 139 Potassium 4.1 Chloride 107 Carbon Dioxide 23 Anion Gap 9 BUN 83 H Creatinine 4.54 H* Est Cr Clr Drug Dosing 11.3 eGFR 10.05 BUN/Creatinine Ratio 18.3 Glucose 131 H POC Glucose 154 H 207 H Calcium 8.3 L Lactate Dehydrogenase 177 Total Protein 5.6 L Fluid Neutrophils % Fluid Lymphocytes % Fluid Meso/Macro/Dooly % Fluid Comment Pleural Fluid Source Pleural Color Pleural Appearance Pleural pH Pleural WBC (Auto) Pleural RBC (Auto) Pleural Total Protein Pleural LDH Pleural Glucose 03/06/25 03/06/25 03/06/25 16:38 20:14 Unknown WBC RBC Hgb Hct MCV MCH MCHC RDW Std Deviation RDW Coeff of Abel Plt Count MPV PT INR Sodium Potassium Chloride Carbon Dioxide Anion Gap BUN Creatinine Est Cr Clr Drug Dosing eGFR BUN/Creatinine Ratio Glucose POC Glucose 178 H 258 H Calcium Lactate Dehydrogenase Total Protein Fluid Neutrophils % 2 Fluid Lymphocytes % 29 Fluid Meso/Macro/Dooly % 69 Fluid Comment Pleural Fluid Source Right Lung Pleural Color Yellow Pleural Appearance Clear Pleural pH 7.47 H Pleural WBC (Auto) 200 Pleural RBC (Auto) < 2000 Pleural Total Protein < 3.0 Pleural LDH 57 Pleural Glucose 164 Diagnostic Findings Labs reviewed and notable for normal potassium, worsening renal function, chronic anemia. Telemetry personally reviewed: Sinus rhythm. Palliative care note reviewed. Nephrology note reviewed. ECG personally reviewed 03/06/2025: Sinus rhythm 61 bpm. Poor R wave progression. Nonspecific T wave abnormality. Echo report reviewed from 03/01/2025: LV EF 40-45%. Mid to distal anterior and anterolateral hypokinesis. Moderate to severe MR. Moderate TR. Large pleural effusion. Pulmonary hypertension. Medications Administered Current Inpatient Medications Acetaminophen (Acetaminophen 325 Mg Tab) 650 mg PO Q4H PRN PRN Reason: Pain or Fever Stop: 03/31/25 14:29 Last Admin: 03/05/25 20:33 Dose: 650 mg Apixaban (Apixaban 5 Mg Tablet) 5 mg PO BID [facility] Stop: 04/06/25 08:59 Aspirin (Aspirin 81 Mg Ectab) 81 mg PO QAM [facility] Stop: 04/01/25 08:59 Last Admin: 03/06/25 08:18 Dose: 81 mg Atorvastatin Calcium (Atorvastatin 40 Mg Tab) 40 mg PO QPM [facility] Stop: 03/31/25 20:59 Last Admin: 03/06/25 20:50 Dose: 40 mg Carbamide Peroxide (Carbamide Peroxide 6.5% 15 Ml Btl) 10 drops OTB BID [facility] Stop: 03/07/25 23:55 Last Admin: 03/06/25 20:49 Dose: Not Given Carvedilol (Carvedilol 12.5 Mg Tab) 12.5 mg PO BIDM [facility] Stop: 03/31/25 16:59 Last Admin: 03/06/25 17:06 Dose: 12.5 mg Cephalexin HCl (Cephalexin 250 Mg Cap) 250 mg PO DAILY [facility]; Protocol Stop: 03/07/25 09:05 Last Admin: 03/06/25 08:17 Dose: 250 mg Dextrose (Dextrose 50% 50 Ml Syringe) 25 - 50 ml IV UD PRN; Protocol PRN Reason: Hypoglycemia Protocol Stop: 03/31/25 14:29 Furosemide (Furosemide 40 Mg Tab) 40 mg PO BID17 [facility] Stop: 04/05/25 09:39 Last Admin: 03/06/25 17:06 Dose: 40 mg Glucagon (Glucagon For Inj 1 Mg Vial) 1 mg SQ UD PRN; Protocol PRN Reason: Hypoglycemia Protocol Stop: 03/31/25 14:29 Glucose (Glucose 40% Gel 15 Gm Tube) 15 - 30 gm PO UD PRN; Protocol PRN Reason: Hypoglycemia Protocol Stop: 03/31/25 14:29 Glucose (Glucose 10 Tab/Tube) 4 - 8 tab PO UD PRN; Protocol PRN Reason: Hypoglycemia Protocol Stop: 03/31/25 14:29 Hydralazine HCl (Hydralazine Tab 50 Mg Tab) 100 mg PO Q8H [facility] Stop: 04/02/25 16:59 Last Admin: 03/06/25 17:06 Dose: 100 mg Iron Sucrose 200 mg/ Sodium (Chloride) 110 mls @ 220 mls/hr IV DAILY [facility] Stop: 03/07/25 09:29 Last Infusion: 03/06/25 10:25 Dose: Infused Insulin Aspart (Insulin Aspart Per Unit Charge) 0 units SC ACHS [facility] Stop: 03/31/25 16:29 Last Admin: 03/06/25 20:51 Dose: 2 units Insulin Glargine (Lantus Per Unit Charge) 5 units SQ QAM [facility] Stop: 04/01/25 08:59 Last Admin: 03/06/25 08:22 Dose: 5 units Isosorbide Mononitrate (Isosorbide Dooly Extended Rel 60 Mg Tabcr) 60 mg PO QAM [facility] Stop: 03/31/25 14:44 Last Admin: 03/06/25 08:18 Dose: 60 mg Ketorolac Tromethamine (Ketorolac 0.5% Op Soln 5 Ml Btl) 1 drops OPB QID [facility] Stop: 03/31/25 16:59 Last Admin: 03/06/25 20:51 Dose: 1 drops Magnesium Hydroxide (Magnesium Hydroxide Susp 30 Ml Udc) 30 ml PO Q12H PRN PRN Reason: Constipation Stop: 03/31/25 14:29 Melatonin (Melatonin 3 Mg Tab) 3 mg PO HS PRN PRN Reason: Sleep Stop: 03/31/25 14:29 Last Admin: 03/01/25 20:12 Dose: 3 mg Miscellaneous (Carbohydrates For Hypoglycemia ) 15 - 30 gm PO UD PRN PRN Reason: Hypoglycemia Protocol Stop: 03/31/25 14:29 Ondansetron HCl (Ondansetron Inj 2 Mg/Ml 2 Ml Vial) 4 mg IV Q6H PRN PRN Reason: Nausea Stop: 03/31/25 14:29 Last Admin: 03/05/25 08:30 Dose: 4 mg Oxymetazoline HCl (Oxymetazoline 0.05% 30 Ml Btl) 1 sprays NA BID [facility] Stop: 03/06/25 23:55 Last Admin: 03/06/25 21:07 Dose: Not Given Polyethylene Glycol (Polyethylene (Miralax) 17 Gm Pack) 17 gm PO DAILY PRN PRN Reason: Constipation Stop: 03/31/25 14:29 Prednisolone Acetate (Prednisolone Acetate 1% Op Susp 5 Ml Btl) 1 drops OPB TID [facility] Stop: 03/31/25 14:44 Last Admin: 03/06/25 20:51 Dose: 1 drops Sertraline HCl (Sertraline Hcl 50 Mg Tablet) 50 mg PO QAM [facility] Stop: 04/01/25 08:59 Last Admin: 03/06/25 08:18 Dose: 50 mg PG Care Time/CCT Total # of Minutes Spent Total Time Spent with Patient: Total time spent is greater than 50% in coordination of care (as documented) at patient's floor/unit and/or counseling patient: Coding Level of Care Code 83778 SUB INP/OBS CARE 3/50MIN Diagnoses Acute on chronic heart failure with mildly reduced ejection fraction (HFmrEF, 41-49%) I50.23 Nonrheumatic mitral valve regurgitation I34.0 Cardiac valve disease etiology: nonrheumatic Paroxysmal atrial fibrillation I48.0 ONEIL (acute kidney injury) N17.9 Anemia D64.9 Anemia type: unspecified type Cardiomyopathy I42.9 Primary hypertension I10 Hypertension type: primary hypertension Pulmonary hypertension I27.20 (2) Mitral regurgitation Cardiac valve disease etiology: nonrheumatic Qualified Code(s): I34.0 - Nonrheumatic mitral (valve) insufficiency (5) Anemia Anemia type: unspecified type Qualified Code(s): D64.9 - Anemia, unspecified (7) Hypertension Hypertension type: primary hypertension Qualified Code(s): I10 - Essential (primary) hypertension
--- NOTE | 2025-03-07 04:50 | Electrocardiogram Report ---
Test Reason : Blood Pressure : */* mmHG Vent. Rate : 61 BPM Atrial Rate : 61 BPM P-R Int : 124 ms QRS Dur : 92 ms QT Int : 474 ms P-R-T Axes : 54 9 102 degrees QTcB Int : 477 ms Normal sinus rhythm Possible Left atrial enlargement Cannot rule out Anterior infarct , age undetermined Nonspecific T wave abnormality Abnormal ECG When compared with ECG of 01-Mar-2025 08:10, No significant change was found Confirmed by Beny Muñoz ([id number]) on 03/07/2025 4:50:33 AM Referred By: REFERRED SELF Confirmed By: Beny Muñoz
[2025-03-07 06:56] LABS: BUN Creatinine Ratio 17.9 (10-20); Calcium 8.3 mg/dl (8.6-10.3); Creatinine Clr Calc Pharmacy 11.6 ml/min; Potassium 3.9 mmol/L (3.5-5.1)
[2025-03-07 08:06] VITALS: O2SAT 96
[2025-03-07] MEDS: APIXABAN 5 MG TABLET PO SCH (08:16)
--- NOTE | 2025-03-07 08:31 | Nephrology Progress Note ---
Date of Service March 07, 2025 Assessment & Plan (1) Acute kidney injury superimposed on stage 4 chronic kidney disease: Plan: * ONEIL/CKD due to cardiorenal syndrome. Renal ultrasound was negative for obstruction. Urinalysis positive for protein. UIEP negative for monoclonal band. CKD is on the basis of diabetic nephropathy * Patient has documented advanced CKD. Initially she was evaluated by Dr. Bartholomew 09/24 but did not maintain follow-up. She was assessed in my office 03/25 but indicated that she was aware of her advanced CKD and did not desire further medical testing, renal ultrasound, additional medications or routine follow up evaluation. She desired only to "get off all medications" and "live a natural life". Follow up w/ PCP was advised. * Cr is stable at 4.5 this morning. Mrs. Cavazos reports that her breathing is improved following thoracentesis. She expresses a desire not to undergo further testing (SEN, MitraClip) and to return home with outpatient palliative care and PRN thoracentesis * Tinnitus has resolved. Continue furosemide 40 mg po BID and monitor symptoms. Patient remains nonoliguric and was net -260 cc last 24 hours * Monitor BMP, I/O's and daily weights * If discharge is planned, patient may follow up w/ PCP and palliative care. Nephrology follow up is not needed since she is pursuing hospice/comfort measures. (2) Chronic kidney disease: Plan: * CKD stage G4/A3 (advanced impairment). Baseline Cr 2.5. Urinalysis positive for protein. Nonnephritic urine sediment. UPCR 4.9. 10/25 UIEP - normal pattern. CKD likely due to DKD, hypertensive nephrosclerosis (3) Acute on chronic heart failure with mildly reduced ejection fraction (HFmrEF, 41-49%): Plan: * TTE: LVEF 40-45% with distal anterior/lateral hypokinesis; MR moderate to severe, TR moderate. * Continue to hold ALIDA/ARB, SGLT2i due to advanced CKD * Diuretic therapy as outlined above * Patient declined SEN and MitraClip evaluation (4) Anemia: Plan: * Hgb 7.4 * 03/05/25 iron sat 13%, ferritin 289 * Day #3/ IV venofer * Epogen 10,000 units SQ x1 given 03/06/25 (5) UTI (urinary tract infection): Plan: * E. Coli cystitis - resolved (6) Hypertension: Plan: * BP is acceptable. Losartan stopped due to progressive renal dysfunction. Continue carvedilol, hydralazine, Imdur as prescribed (7) Pleural effusion: Plan: * Thoracentesis +/- paracentesis is being planned for tomorrow Admission and Anticipated Discharge Date Admission Date: March 01, 2025 Subjective Mrs. Cavazos was evaluated in her hospital room this morning. She reports that her breathing is improved following thoracentesis. Mrs. Cavazos expresses a desire not to undergo further testing (SEN, MitraClip) and return home with outpatient palliative care and PRN thoracentesis Review of Systems Constitutional: no fever Eyes: no problem reported Ear, Nose, Mouth, Throat: no problem reported Respiratory: + dyspnea on exertion; no cough Cardiovascular: no chest pain Gastrointestinal: no abdominal pain, no nausea, no vomiting and no diarrhea/loose stools Genitourinary: no dysuria and no hematuria Integumentary: no rash Neurologic: no problem reported Physical Exam Constitutional: not in distress Eyes: PERRL, conjunctivae normal, anicteric sclerae ENMT: external ear and nose normal, oropharynx normal Ears: + unable to visualize TM (R EAC occluded w/ cerumen, L EAC patent and TM clear) Neck: trachea midline, no thyromegaly Respiratory: Auscultation: + diminished lung sounds (at bases bilaterally) Cardiovascular: RRR, no murmur, no edema Gastrointestinal (Abdomen): Inspection/Auscultation: + abdomen distended Percussion/Palpation: abdomen nontender Musculoskeletal: Extremities: no cyanosis and no clubbing Skin: no rashes, warm and dry Neurologic: awake; not confused Results & Data Vital Signs (Past 12 Hours) Vital Signs Temp Pulse Pulse Resp BP BP Pulse Ox 03/07/25 08:05 36.8 C 77 18 124/68 138/68 96 03/07/25 07:22 66 03/07/25 03:13 36.6 C 66 19 130/70 95 03/06/25 23:15 36.7 C 60 17 146/73 H 96 03/06/25 22:05 58 L 03/06/25 21:54 O2 Del Method 03/07/25 08:05 Room Air 03/07/25 07:22 03/07/25 03:13 Room Air 03/06/25 23:15 Room Air 03/06/25 22:05 03/06/25 21:54 Room Air Laboratory Results Laboratory Results - last 24 hr 03/06/25 03/06/25 03/06/25 11:36 16:38 20:14 Sodium Potassium Chloride Carbon Dioxide Anion Gap BUN Creatinine Est Cr Clr Drug Dosing eGFR BUN/Creatinine Ratio Glucose POC Glucose 207 H 178 H 258 H Calcium Fluid Neutrophils % Fluid Lymphocytes % Fluid Meso/Macro/[place] % Fluid Comment Pleural Fluid Source Pleural Color Pleural Appearance Pleural pH Pleural WBC (Auto) Pleural RBC (Auto) Pleural Total Protein Pleural LDH Pleural Glucose 03/06/25 03/07/25 03/07/25 Unknown 06:01 07:17 Sodium 139 Potassium 3.9 Chloride 107 Carbon Dioxide 24 Anion Gap 8 BUN 79 H Creatinine 4.41 H Est Cr Clr Drug Dosing 11.6 eGFR 10.41 BUN/Creatinine Ratio 17.9 Glucose 160 H POC Glucose 186 H Calcium 8.3 L Fluid Neutrophils % 2 Fluid Lymphocytes % 29 Fluid Meso/Macro/[place] % 69 Fluid Comment Pleural Fluid Source Right Lung Pleural Color Yellow Pleural Appearance Clear Pleural pH 7.47 H Pleural WBC (Auto) 200 Pleural RBC (Auto) < 2000 Pleural Total Protein < 3.0 Pleural LDH 57 Pleural Glucose 164 PG Care Time/CCT Total # of Minutes Spent Total Time Spent with Patient: Total time spent is greater than 50% in coordination of care (as documented) at patient's floor/unit and/or counseling patient: Coding Level of Care Code 64126 SUB INP/OBS CARE 3/50MIN Diagnoses Acute kidney injury superimposed on stage 4 chronic kidney disease N17.9; N18.4 Chronic kidney disease N18.9 Chronic kidney disease stage: unspecified stage Acute on chronic heart failure with mildly reduced ejection fraction (HFmrEF, 41-49%) I50.23 Anemia D64.9 Anemia type: unspecified type UTI (urinary tract infection) N30.01 Hematuria presence: with hematuria Urinary tract infection type: acute cystitis Primary hypertension I10 Hypertension type: primary hypertension Pleural effusion J90 (2) Chronic kidney disease Chronic kidney disease stage: unspecified stage Qualified Code(s): N18.9 - Chronic kidney disease, unspecified (4) Anemia Anemia type: unspecified type Qualified Code(s): D64.9 - Anemia, unspecified (5) UTI (urinary tract infection) Hematuria presence: with hematuria Urinary tract infection type: acute cystitis Qualified Code(s): N30.01 - Acute cystitis with hematuria (6) Hypertension Hypertension type: primary hypertension Qualified Code(s): I10 - Essential (primary) hypertension
[2025-03-07 11:08] VITALS: RESP 16; TEMP 97.7
[2025-03-07 14:05] VITALS: BP 138/68; PULSE 60
--- NOTE | 2025-03-07 14:14 | Palliative Family Discussion ---
Date of Service March 07, 2025 Patient Directed Conference Time of Meetin:00-13:40 Participants: Rocio Royal AGACNP Patient participation: yes Patient Support System: spouse, 3 adult children Other Healthcare Provider Participation: None Meeting Location: bedside Advanced Directive available: no The patient's surrogate medical decision maker participated: no visitors present Legally authorized health care proxy: spouse Other surrogate: n/a A family meeting was held for JEANNE CAVAZOS. This meeting was necessary for determining the appropriate course of treatment. Topics of Discussion Topics of Discussion: 1. goals of care 2. hospice/comfort directed care 3. POLST Other Content of Meetin. Opportunity given for participants to speak and ask questions. 2. Participants were assured of attention to patient comfort. 3. Reassurance provided. 4. Support was provided for informed, good-manohar decisions. 5. Emotions expressed by family were acknowledged and addressed. 6. Follow-up Outpatient: n/a 7. 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 Hospital does not have written documentation of patient wishes concerning her chosen proxy for medical decisions. Per PA [id number], in absence of written documentation of patient wishes, pt's proxy for medical decisions would be her spouse. Spouse Raoul Cavazos is at bedside and in agreement to serve as MDM proxy if need were to arise. Today pt shared that she has decided not to follow with cardiology or nephrology and to just go home and "hug all my loved ones and enjoy whatever time I get". She shared that she asked her to go to work today so that she could talk with the teams and make decisions. She shared that she would like to go back home and not visit doctors or come back to the hospital. She discussed having nurses come to the house to help with her comfort with the plan to transition to hospice if she were to get sicker. Pt shared that she wants to pursue comfort directed care now and hospice in the future as her disease progresses.. We discussed that her desire to optimize her quality of life without trying to prolong life is fitting with the hospice philosophy of care which is comfort directed care. Helped her understand that although life prolonging therapies are stopped with hospice, nothing is done to hasten . Discussed hospice benefit: an interdisciplinary program offered by nurses, nurses aides, social workers, chaplains and a certified medical assistant for patients with a terminal condition and a life expectancy of less than 6 months. This is covered by Medicare at 100%/no out of pocket expense to patient and all meds/supplies needed by patient for the reason they are on hospice are paid for/covered by hospice. The goal is assure quality of life of the patient in their home setting (home, alf, inpatient hospice setting) by providing symptoms management, psychosocial and spiritual support. However, they cannot offer 24 hours care and if the family is unable to provide that care, they will have to consider personal care with out of pocket cost vs. alf placement. We discussed the goals of hospice as a patient service and the goals of care; we discussed EOL trajectories and transitions paresh the emotional impact of realizing mortality as a concrete reality from prior abstract considerations. Pt was reassured that no matter where they are along this trajectory, they are not alone - their medical team will remain by their side through their journey. Discussed the pros/cons of accepting help when especially weakened and distressed by pain-which would also help provide relief/decrease caregiver burden/strain. Pt was thankful for information shared and request transition to comfort care at this time. She requests that she be discharged to home with hospice care and denies need for DME at this time. She shared that her spouse would be able to drive her home this evening. Also discussed engaging palliative foundation funded Conscious Dying Coaching with Rev Radha Merrill. I reviewed that Rev Merrill offers assistance on non clinical issues, supporting patients as they consider, navigate and become clear on what is most important for their end of life. Rev Merrill helps patients align how they are currently living with the vision they see for yourself at the end, then identify and set goals, along with action steps for yourself to fulfill that vision. The focus is on the 5 domains of life: Spiritual, emotional, physical, mental, and practical. Jeanne would like this engagement with Rev Merrill and I have provided pt with Rev Merrill's contact information. Patient and family asked that I share her name and phone with Rev Merrill to contact, as it is sometimes hard for pt to make the call, fearing rejection. I reviewed that End of life coaching and planning begins with 10 structured sessi ons we like to call, the best three months. Based on 10 total meetings over a 3- 4 month period. Average meeting time 60-90 minutes. 2 meetings per domain. Over a three month period, there is support for the family and patient to identify their vision, current reality and steps to be taken to implement life fulfillment and care wishes in the spiritual, emotional, mental, physical and practical domains of life. This service includes: Best Three Months End-of-Life Care Coaching and Planning with Family, Patient and Co-coordination with Medical/Hospice Care Providers. Mrs Cavazos is agreeable to this service, contact information shared with her. Time Involved in Meeting: I spent 55 minutes overall addressing this case: 5 in medical data review/discussion with referring provider(s) and/or preparation for the visit 35 in direct interaction with the patient 35 Advance Care Planning/Goals of Care discussions as detailed above in note (must be >16min) 10 in subsequent review and synthesis of assessment and plan 5 in communicating with other providers regarding the patient's case: attending, BEBE , BSRN
[2025-03-07] MEDS ORDERED: LORazepam 2 MG/1 ML VIAL IV PRN (14:15)
[2025-03-07] MEDS ORDERED: GLYCOPYRROLATE 0.2 MG/ML VIAL IV PRN (14:15)
[2025-03-07] MEDS ORDERED: ONDANSETRON INJ 2 MG/ML 2 ML VIAL IV PRN (14:15)
--- NOTE | 2025-03-07 18:07 | Discharge Summary ---
Date of Service March 07, 2025 Admission HPI Per Admitting Provider 60 is a 69-year-old woman with heart failure with midrange ejection fraction, atrial fibrillation, advanced CKD with proteinuria, diabetes type 2. she came into the ED today with increasing shortness of breath and chest/abdominal pressure. both of these symptoms have been going on approximately 3 to 4 days and slowly worsening. She does have orthopnea and has been sleeping in a recliner the last several days, she has also had trouble breathing very early in the morning which is causing her to wake up, her has been giving her 2 tabs of furosemide which seems to help at least for the morning but she is again worse by evening. She has had increasing lower extremity edema up to the knees and increasing abdominal girth for weeks. She does not feel like the Lasix helps her urinate more than usual. The chest/abdominal pressure comes and goes with the dyspnea which is frequent, every few minutes seems to last at least a few minutes and then improves. There is some pelvic/rectal pressure that goes along with the sensation. This is nonexertional and seems to actually be worse at rest. Her son points out that if she does get up and walk however she is too short of breath and fatigued after only about 12 feet. The pressure is nonradiating it is not pain. She has had intermittent nausea with some vomiting however does not correlate with the pressure. She has not noticed any dysuria however seems to be urinating small amounts as she does have left flank pain for the last several days without fevers or chills. No history of nephrolithiasis. She does have a history of urinary tract infections. No recent changes in her medications, I forgot to ask her whether she has taken any NSAIDs recently Dr Josue obtained additional history from her at bedside because she is a vague historian and he notes that she is a poor short-term memory Today when patient was being seen by palliative care patient explicitly said that she does not want to pursue any procedures or any doctors visit she wants to go home and be peaceful see palliative care note Admission Exam (Per Admitting) Constitutional Gen.: No acute distress. Alert. HEENT: Anicteric sclera. Neck: Mild JVD and hepatojugular reflux. Cardiac: Regular. Normal S1-S2. 1/6 systolic murmur. Pulmonary: Clear to auscultation bilaterally without wheezes, rales, or rhonchi. Abdomen: Soft, nontender, nondistended, with normoactive bowel sounds. No bruits noted. Extremities: 2+ radial pulses bilaterally. 2+ posterior tibialis pulses rony aterally. Trace bilateral pedal edema. No cyanosis. Discharge Data Consultations 03/01/25 12:01 Consult Cardiology Routine Consult Nephrology Routine 03/01/25 12:09 ED Decision to Admit Stat 03/04/25 11:48 Consult Palliative Care Routine Hospital Course (1) Acute on chronic heart failure with mildly reduced ejection fraction (HFmrEF, 41-49%): (2) Acute kidney injury superimposed on stage 4 chronic kidney disease: (3) Diabetes type 2, controlled: (4) Atrial fibrillation: Cookie fajardo was thankful for information shared and request transition to comfort care at this time. She requests that she be discharged to home with hospice care and denies need for DME at this time. She shared that her spouse would be able to drive her home this evening. Coding Level of Care Code 47169 INP/OBS DISCH >30 MIN Diagnoses Acute on chronic heart failure with mildly reduced ejection fraction (HFmrEF, 41-49%) I50.23 Acute kidney injury superimposed on stage 4 chronic kidney disease N17.9; N18.4 Diabetes type 2, controlled E11.9 Atrial fibrillation I48.91 Time Spent (min) 30
== END 2025-03-07 17:34 | disposition hospice, home (50) | DRG 291 ==
LOC: ED 07:56 → SUATTDRO 12:27 → 2S 12:27
DX: I08.1 Rheumatic disorders of both mitral and tricuspid valves; Z86.73 Personal history of transient ischemic attack (TIA), and cerebral infarction without residual deficits; Z88.8 Allergy status to other drugs, medicaments and biological substances; N17.0 Acute kidney failure with tubular necrosis; F41.9 Anxiety disorder, unspecified; B96.20 Unspecified Escherichia coli [E. coli] as the cause of diseases classified elsewhere; Z51.5 Encounter for palliative care; I42.9 Cardiomyopathy, unspecified; Z79.899 Other long term (current) drug therapy; Z98.890 Other specified postprocedural states; I50.22 Chronic systolic (congestive) heart failure; I13.0 Hypertensive heart and chronic kidney disease with heart failure and stage 1 through stage 4 chronic kidney disease, or unspecified chronic kidney disease; I27.20 Pulmonary hypertension, unspecified; R18.8 Other ascites; N39.0 Urinary tract infection, site not specified; Z79.82 Long term (current) use of aspirin; E11.22 Type 2 diabetes mellitus with diabetic chronic kidney disease; H93.13 Tinnitus, bilateral; Z79.01 Long term (current) use of anticoagulants; I48.0 Paroxysmal atrial fibrillation; F32.A Depression, unspecified; N18.4 Chronic kidney disease, stage 4 (severe); E11.40 Type 2 diabetes mellitus with diabetic neuropathy, unspecified; Z66 Do not resuscitate; Z79.4 Long term (current) use of insulin; J96.01 Acute respiratory failure with hypoxia; D64.9 Anemia, unspecified; E78.5 Hyperlipidemia, unspecified